=== PATIENT | male | born 1945 | race Caucasian/White ===

== ENCOUNTER → 2017-05-20 10:05 | Outpatient (CLI) | payer MEDICARE, OTHER, SELFPAY ==
--- NOTE | 2017-05-18 08:10 | LES_PTH ---
PATIENT: EKTA CONWAY LOC: [facility] U#:[id number] AGE/SX: 79/M ROOM: RE05/20/[address]: Dr. Ferny Chu MD : 1945 BED: DIS: SPEC #: [id number] RECD: 05/20/17 10:04 STATUS: KARMEN SHE #: [id number] JENNY: 05/18/17 08:[address]: Ferny Chu DEPT: SURGICAL PATHOLOGY RECD BY: Celso Gonzáles ENTERED: 05/20/17 13:08 SP TYPE: Lesion OTHR DR: Dr. Jeremiah Mendoza MD Tissues: Skin of hand and finger, NOS Procedures: Surgery Specimen Level IV HEADER OPERATION: Excision right hand lesion PRE-OP DIAGNOSIS: Right hand lesion TISSUE SUBMITTED: Right hand tissue MICROSCOPIC DIAGNOSIS Skin lesion of right hand, biopsy: Consistent with verrucoid keratosis, inflamed. Solar elastosis and actinic change. AM:kiya 05/21/17 COMMENT Case has been reviewed in consultation with Dr. Kwan who concurs with the above diagnosis. IDC:JOSHUA MICROSCOPIC DESCRIPTION Slides are reviewed. GROSS DESCRIPTION Received in fixative is one container labeled with the patient's name and designated right hand. The specimen consists of a piece of ronquilol-white skin ellipse measuring 1.5 x 0.8 cm and 0.2 cm in thickness. There is a raised brown lesion on the surface measuring 0.7 x 0.6 cm. The specimen is inked, serially sectioned and submitted entirely in one cassette. / JOSHUA:kiya 05/20/17 TC:5 CPT: 95989
== END ==
PROVIDERS: Family Provider Family Medicine; PCP Family Medicine; Visit Provider Surgery
DX: L98.8 Other specified disorders of the skin and subcutaneous tissue (principal)
CPT/HCPCS: 88305

== ENCOUNTER 2018-06-27 11:29 | Inpatient (IN) | payer MEDICARE, OTHER, SELFPAY ==
[2018-06-27] VITALS (20 sets, daily range): BP systolic 120–179; BP diastolic 55–104; PULSE 55–88; RESP 17–24; TEMP 36.3–36.8; O2SAT 92–96; BMI 25.5; BMI 25.6; BMI 26.8
--- NOTE | 2018-06-27 11:45 | EKG12_ITS ---
Test Reason : SOB Blood Pressure : / mmHG Vent. Rate : 058 BPM Atrial Rate : 058 BPM P-R Int : 164 ms QRS Dur : 098 ms QT Int : 510 ms P-R-T Axes : 012 045 107 degrees QTc Int : 500 ms Sinus bradycardia Nonspecific T Wave Abnormality Abnormal ECG Confirmed by SCOTTY DIAZ, DIMITRIS ([id number]), legal editor FUENTES MUELLER ([id number]) on 06/30/2018 11:42:24 AM Referred By: Confirmed By:DIMITRIS FAJARDO MD
[2018-06-27] MEDS: Albuterol 2.5 MG/3 ML VIAL.NEB. INHALATION ×3 (12:00→12:19)
[2018-06-27] MEDS: Ipratropium/Albuterol Sulfate 3 ML AMPUL.NEB INHALATION ×2 (12:00→18:57)
[2018-06-27 12:18] LABS: Absolute Lymphocyte Count 0.88 X10^3/ul (0.83-4.51); Absolute Neutrophil Count 5.4 X10^3/uL (2.0-7.7); Basophil# 0.03 X10^3/uL; Basophil% 0.4 % (0-1); Eosinophil# 0.14 X10^3/uL; Hematocrit 30.3 % (40-54); Hemoglobin 9.6 g/dl (13.0-16.5); Lymphocyte # 0.88 X10^3/ul (4.0); Lymphocyte % 12.6 % (19-41); Mean Corp Hgb Conc 31.7 g/gl (32-36); Mean Corpuscular Hgb 27.7 pg (27.0-32.0); Mean Corpuscular Volume 87.3 fL (80-94); Mean Platelet Vol. 9.9 fl (6.2-12.0); Monocyte# 0.49 X10^3/uL; Neutrophil % 77.7 % (47-70); Platelet Count 261 K/mm3 (150-450); RBC Distribution Width CV 15.5 % (11.6-14.6); RBC Distribution Width SD 49.3 fl (35.1-43.9); Red Blood Count 3.47 M/mm3 (4.6-6.2)
[2018-06-27 12:25] LABS: POSITIVE COUNT NO; POSITIVE DIFFERENTIAL NO; POSITIVE MORPHOLOGY NO
[2018-06-27 12:26] LABS: Anion Gap 10 (5-15); BUN 40 mg/dL (7-18); BUN/Creat Ratio 20.6 RATIO (10-20); Calcium,Total 8.8 mg/dL (8.5-10.1); Chloride 108 mmol/L (98-107); Creatinine, Serum 1.94 mg/dL (0.70-1.30); EST Glomerular Filtration Rate 36 mL/min (>60); Est Glom Filt Rate - Afr Amer 44 mL/min (>60); Estimated Creatinine Clearance 33.91 ml/min; Glucose 137 mg/dL (74-106); Potassium 3.9 mmol/L (3.5-5.1); Sodium Level 141 mmol/L (136-145)
--- NOTE | 2018-06-27 12:28 | RAD_ITS ---
STUDY: X-RAY CHEST REASON FOR EXAM: Male, 73 years old. Shortness of breath. Hypoxia. TECHNIQUE: PA and lateral views of the chest. COMPARISON: October 03, 2012. FINDINGS: Median sternotomy. CABG. Vascular stenting at the left neck. Surgical clips at the right neck. Cardiac silhouette unremarkable. Pulmonary vascularity slightly increased. Aorta calcified. Coarse lung markings. Hyperexpansion. Costophrenic angle blunting. Upper abdomen unremarkable. Osseous structures are demineralized. No pneumothorax. Degenerative changes of the shoulders and spine. RAD/Chest PA and Lateral IMPRESSION: No new focal patchy airspace opacities or significant pleural effusions COPD/emphysema with costophrenic angle blunting Cardiac surgery Electronically Signed: Lauri Chen DO at 13:15 EDT Tel , Service support ,
[2018-06-27 12:36] LABS: Base Excess -4 mmol/L (-2 to +2); O2 Delivery Device Nasal Can; PO2 38 mmHG (75-100); SITE L Radial; SO2 72 % (95-99); Time Given 1221; Total Carbon Dioxide 22 mmol/L; pH 7.39 (7.35-7.45)
--- NOTE | 2018-06-27 12:37 | BH.SGPN.T2 ---
Behaviors/Verbalizations/Mental Status: [] Client Response/Progress/Benefit: [] Narrative Note: []Critical PaO2 value due to venous gas drawn Dr. Sanabria notified
--- NOTE | 2018-06-27 13:13 | ED.VIS.GEN ---
History of Present Illness Chief Complaint: Shortness of Breath Informant: Patient Onset: Days - Patient reports increased shortness of breath over the past several days. Context: - - Does not recall Timing: Continuous Quality: Difficulty breathing at rest and increased shortness of breath with activit Location: Respiratory Current Severity: Mild Maximum Severity: Severe Worsened by: Exertion Relieved by: Nothing Associated Symptoms: No URI symptoms, cardiac symptoms i.e. orthopnea or PND Narrative: Patient is an elderly male who is not a good informant. He presents with increased shortness of breath over the past several days. He reports increased dyspnea with exertion. He denies URI symptoms. He denies fever or chills. He was unaware that his lower extremities were edematous. He denies orthopnea or PND. He denies chest pain of any type. He denies GI symptoms. He denies coronary disease however he is on nitroglycerin. 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 Prior similar symptoms: No Recent Illness/Hospitalization: No - Past Medical History (1) History of hypertension Status: Acute (2) History of hypercholesterolemia Status: Acute (3) PAD (peripheral artery disease) Status: Acute Past Medical History - Allergies and Home Meds Allergies/Adverse Reactions: Allergies No Known Allergies Allergy (Verified 05/27/17 13:11) Primary Care Physician: Jeremiah Mendoza MD [Primary Care Provider] - Prior records reviewed: Yes Surgical History: noncontributory Lives: Alone Smoking Status: Former smoker Alcohol: None Drugs: None Review of Systems General: Denies: Chills, Fever, Malaise, Sweats, Weight loss Eyes: Denies: Visual changes - bilaterally, Blurred Vision - bilaterally, Diplopia ENT: Denies: Bilateral ear pain, Rhinorrhea, Sore throat Cardiovascular: Denies: Chest pain, Palpitations, Heart racing Respiratory: Reports: Dyspnea, Cough, Dyspnea on exertion. Denies: Sputum, Orthopnea, Paroxysmal nocturnal dyspnea Gastrointestinal: Denies: Abdominal pain, Nausea, Vomiting, Diarrhea, Melena, Hematochezia Genitourinary: Denies: Dysuria, Hematuria, Frequency Musculoskeletal: Denies: Myalgias, Arthralgias, Back pain, Swelling, Extremity Pain Skin: Denies: Rash, Wounds Neurological: Denies: Headache Psych: Denies: Depression Hematologic: Denies: Easy bruising, Easy bleeding Allergy: Denies: Uticaria, Swelling of the mouth Physical Exam Vital Signs/Narrative: Vital Signs Temp Pulse Resp BP Pulse Ox 06/27/18 12:33 97.3 F L 55 L 24 H 128/104 H 94 06/27/18 12:30 55 L 24 H 128/104 H 94 06/27/18 12:01 57 L 20 H 06/27/18 11:30 98.2 F 58 L 17 179/63 H 94 Inital Vital Signs reviewed: Yes General: Well nourished, Well developed, Acute Distress Head: Normocephalic, Atraumatic Eyes: Perrl, EOMI. Negative for: Pale conjunctiva, Scleral icterus ENT: Moist mucous membranes, No rhinorrhea, TM's clear Neck: Supple, Nontender, No lymphadenopathy, No JVD Cardiovascular: Regular rate, Regular rhythm, No murmurs, Normal S1, Normal S2 Respiratory: Rales, Wheezing, Diminished, Decreased Air Movement Abdomen: Soft, Nontender, Nondistended, Normal bowel sounds, No masses Back: Nontender, Normal Inspection Extremities: Nontender, Edema - 1+ pitting Skin: Normal color, No rash, Cyanosis - Per nursing staff. Negative for: Jaundice Neurological: Alert, Oriented x3, Cranial nerves II-XII grossly intact, Normal Strength, Normal Sensation, Normal DTR Psychological: Normal affect, Normal Mood Diagnostic/Tx/Re-eval Chest X-Ray - ED: 2 View, Read by ED Physician, Normal, Heart, Mediastinum, Bony Structures, - - Interstitial chronic changes noted. Unable to compare to prior films. There is evidence of an effusion bilaterally. 06/27/18 12:28 Chest PA and Lateral [RAD] Stat Laboratory Results 06/27/18 06/27/18 06/27/18 11:35 11:35 12:22 WBC 7.0 RBC 3.47 L Hgb 9.6 L Hct 30.3 L MCV 87.3 MCH 27.7 MCHC 31.7 L RDW 15.5 H RDW Differential 49.3 H Plt Count 261 MPV 9.9 Immature Gran % (Auto) 0.300 Neut % (Auto) 77.7 H Lymph % (Auto) 12.6 L [place] % (Auto) 7.0 Eos % (Auto) 2.0 Baso % (Auto) 0.4 Absolute Neuts (auto) 5.4 Absolute Lymphs (auto) 0.88 Total Counted Not Reportable Specimen Type ART Sample Site L Radial pH 7.39 Bicarbonate Actual 21.0 L POC Total CO2 22 Base Excess -4 L O2 Saturation 72 L ABG pCO2 35.0 ABG pO2 38 L* Jamel Test NA O2 Delivery Device Nasal Can Liter Flow 4.0 Blood Gas Notified Whom ED Blood Gas Notified Time 1221 Sodium 141 Potassium 3.9 Chloride 108 H Carbon Dioxide 23.0 Anion Gap 10 BUN 40 H Creatinine 1.94 H Estim Creat Clear Calc 33.91 Est GFR (MDRD) Af Amer 44 L Est GFR (MDRD) Non-Af 36 L BUN/Creatinine Ratio 20.6 H Glucose 137 H Calcium 8.8 Troponin I 0.024 - Rhythm Strip Rhythm Strip: Sinus Rhythm Rate: 58 Ectopy: None - EKG Initial EKG Interpretation: Sinus Bradycardia - Ventricular rate 58. NH interval normal. Respiration is slightly prolonged at 98 ms. QT interval is normal. [place] is normal. There is nonspecific lateral changes noted. - Medical Decision Making Differential diagnosis is respiratory etiology versus COPD versus pneumonia versus coronary etiology i.e. CHF. Work-up included EKG, chest x-ray and blood work including BNP. BNP was greater than 2000. Chest x-ray was read as no new process. In my opinion there is bilateral small pleural effusions and evidence of heart failure. Patient was treated with Lasix and nitroglycerin he will need admission. An ABG was obtained. The ABG is a venous gas. There is no significant acid-base disturbance. ED Disposition - Plan for ED Patient: Disposition: Acute Care Hospital [facility] Diagnosis: Respiratory failure with hypoxia, New onset of congestive heart failure Referrals: Jermeiah Mendoza MD [Primary Care Provider] -
[2018-06-27 14:08] LABS: BNP,B-Type NATRIURETIC PEPTIDE 2003.5 pg/mL (0-100)
[2018-06-27] MEDS: Furosemide 40 MG/4 ML Vial IV ×2 (15:14→21:00)
[2018-06-27] MEDS: Nitroglycerin Oint 1 INCH PACKET TRANSDERM. (15:14)
--- NOTE | 2018-06-27 15:22 | HP.PCM_ITS ---
Problem List (1) Acute exacerbation of CHF (congestive heart failure) Status: Acute Qualifiers: Heart failure type: unspecified Qualified Code(s): I50.9 - Heart failure, unspecified (2) COPD exacerbation Status: Acute (3) CAD (coronary artery disease) Status: Chronic Qualifiers: Coronary Disease-Associated Artery/Lesion type: unspecified vessel or lesion type [place] vs. transplanted heart: unspecified whether [place] or transplanted heart Associated angina: angina presence unspecified Qualified Code(s): I25.10 - Atherosclerotic heart disease of [place] coronary artery without angina pectoris (4) HTN (hypertension) Status: Chronic Qualifiers: Hypertension type: essential hypertension Qualified Code(s): I10 - Essential (primary) hypertension (5) HLD (hyperlipidemia) Status: Chronic Qualifiers: Hyperlipidemia type: pure hypercholesterolemia Qualified Code(s): E78.00 - Pure hypercholesterolemia, unspecified; E78.0 - Pure hypercholesterolemia (6) Gout Status: Chronic Qualifiers: Gout site: unspecified site (7) GERD (gastroesophageal reflux disease) Status: Chronic Qualifiers: Esophagitis presence: esophagitis presence not specified Qualified Code(s): K21.9 - Gastro-esophageal reflux disease without esophagitis (8) PAD (peripheral artery disease) Status: Chronic (9) Carotid stenosis, bilateral Status: Chronic History of Present Illness Date of Admission: 06/27/18 Chief Complaint: Dyspnea. The patient is a 73 y/o M w/ PMHx: CAD s/p CABG, PAD, Chronic anemia (baseline prior appeared 11 but not recent), CKD stage III (prior baseline 1.8 but not recent), Carotid disease s/p R CEA, HTN, HLD, PVD, Gout, GERD, Hx TIA, Former Tobacco use who presents to the [facility] ED on 06/27/18 with history of ongoing progressively worsening dyspnea over the last 2 weeks, worsened over the last several days with prior to this upper respiratory infection symptoms which have since resolved with concurrent wheezing although does also note that he has had bilateral lower extremity edema but denies any orthopnea. Work-up in the ED included T 98.2, HR 58, BP 179/63, RR 24, 94% on RA however noted 70s oxygenation on RA, CBC with WBC 7, heme globin 9.6, platelet 261 without market shift, VBG with pH 7.39, O2 72%, PCO2 35, PO2 38 on 4 L nasal cannula, BMP with chloride 108, BUN/creatinine 40/1.94, glucose 137, troponin 0 0.024, BNP 2003.5, EKG w/ sinus bradycardia with non-specific lateral changes, CXR w/ chronic COPD/emphysematous changes with costophrenic angle blunting. In the ED patient administered Nitro-Bid, Lasix 40 mg IV x1, DuoNeb as well as albuterol therapies. In the ED upon evaluation patient does have increased respiratory rate, audible wheezing occasionally. Past Medical History Past Medical History (Chronic Problems): Chronic Problems (Last Reviewed 05/27/17 @ 13:11 by Susanna Sneed) CAD (coronary artery disease) (Chronic) HTN (hypertension) (Chronic) HLD (hyperlipidemia) (Chronic) Gout (Chronic) GERD (gastroesophageal reflux disease) (Chronic) PAD (peripheral artery disease) (Chronic) Carotid stenosis, bilateral (Chronic) Medical History: Medical History (Last Reviewed 05/27/17 @ 13:11 by Susanna Sneed) Skin lesion (Acute) L98.9 PAD (peripheral artery disease) (Chronic) I73.9 Carotid stenosis, bilateral (Chronic) I65.23 Arthritis M19.90 Gout M10.9 Hyperlipidemia E78.5 PVD (peripheral vascular disease) I73.9 h/o of hernia HTN (hypertension) I10 Allergies No Known Allergies Allergy (Verified 05/27/17 13:11) Home Medications: Ambulatory Orders Medication Instructions Recorded Amlodipine [Norvasc] 10 mg PO DAILY 05/15/16 Aspirin [Aspirin EC] 81 mg PO DAILY 05/15/16 Atorvastatin Calcium [Lipitor] 80 mg PO QHS 05/15/16 Doxazosin Mesylate [Cardura] 8 mg PO QHS 05/15/16 Ezetimibe [Zetia] 10 mg PO QHS 05/15/16 Multivitamin [Daily Multiple 1 ea PO DAILY 05/15/16 Vitamin] Nitroglycerin [Nitrostat] 0.4 mg SL PRN PRN 05/15/16 Carvedilol 25 mg PO BID 06/27/18 Furosemide [Lasix] 20 mg PO DAILY 06/27/18 Omeprazole 20 mg PO DAILY 06/27/18 hydrALAZINE [Apresoline] 50 mg PO TID 06/27/18 Surgical History: Surgical History (Last Reviewed 05/27/17 @ 13:11 by Susanna Sneed) H/O colonoscopy Z98.890 2009-repeat 2019 H/O heart bypass surgery Z95.1 History of CEA (carotid endarterectomy) Z98.890 right History of knee replacement Z96.659 Surgical History: - - PCI x9, CABG x4, left total knee replacement, right CEA, bilateral inguinal hernia repair. Psychiatric History: No pertinent psych hx Lives: Alone Smoking Status: Former smoker - Patient quit cigarette tobacco usage approximately 20 to 30 years prior with prior to this 1 pack/day. Tobacco Use: Non-smoker Alcohol: Occasional - Patient notes 1-2 beers maybe every other day. Drugs: None - *Family History Maternal History Items: - - Patient notes no marked maternal family history including heart disease, diabetes, cancer. Paternal History Items: Heart Disease, Hypertension Review of Systems Constitutional: Reports: Anorexia, Malaise, Weakness, Fatigue. Denies: Chills, Fever, Weight Change HEENT: Reports: Nasal Congestion, Sinus Congestion, Sinus Drainage, Sore Throat. Denies: Head Aches Cardiovascular: Reports: Edema. Denies: Chest Pain, Heaviness, Light Headedness, Orthopnea, Palpitations, Syncope Respiratory: Reports: Cough, Shortness of Breath, Shortness of breath upon exertion, Wheezing. Denies: Shortness of breath at rest, Sputum production Gastrointestinal: Denies: Abdominal Pain, Nausea, Vomiting Genitourinary: Denies: Dysuria Musculoskeletal: Reports: Joint Pain. Denies: Joint Tenderness Skin: Denies: Rash, Wounds Neurological: Denies: Numbness, Tingling, Focal weakness Psychiatric: Denies: Anxiety, Depression, Homicidal Ideations, Suicidal Ideations Hematologic/ Lymphatic: Reports: Easy Bruising. Denies: Easy Bleeding VTE Information - Inpt Only VTE Present on Admission: No VTE Mechan Device Prophylaxis: SCD's VTE Pharm Prophylaxis ordered?: Yes Patient Problems: Active and Suspected Problems (Last Reviewed 05/27/17 @ 13:11 by Susanna Sneed) History of hypertension (Acute) History of hypercholesterolemia (Acute) Respiratory failure with hypoxia (Acute) New onset of congestive heart failure (Acute) Acute exacerbation of CHF (congestive heart failure) (Acute) COPD exacerbation (Acute) Subjective: Seated upright in the ED bed, fatigued appearance, increased respiratory rate otherwise no acute distress. Objective: Physical Examination: General: awake, alert, oriented x 3 and cooperative, seated upright in the ED bed, fatigued appearance, increased respiratory rate but no obvious distress. Skin: normal color, turgor, no icterus, cyanosis. HEENT: AT/NC, EOMI, PERRLA, moderately dry MM, no carotid bruits, + JVD noted. Lungs: Severely diffusely diminished, greater bases, mild rales at bases, and expiratory occasional wheezing throughout lung gama, mildly increased respiratory rate. Heart: Regular rate and rhythm; no gallop, rub audible. Abdomen: soft, NTTP, ND, normal BS, no HSM. Extremities: no cyanosis, clubbing, BL LE pedal to [place] pitting 1+ edema. Neurological: patient awake, alert, oriented x 3; cognitive function intact; pupils equally reactive to light and accomodation; cranial nerves II-XII grossly normal, moving all 4 extremities, no focal deficits, strength severely global decrease secondary to acute presentation. Psychiatric: affect appears fatigued, no acute evidence of depressive or anxiety feelings. - Physical Exam Vital Signs Temp Pulse Resp BP Pulse Ox 97.6 F L 61 20 H 128/99 H 93 06/27/18 14:00 06/27/18 14:00 06/27/18 14:00 06/27/18 14:00 06/27/18 14:00 Oxygen Flow Rate (L/min) 4 Oxygen Delivery Method Nasal Cannula Weight: 173 lb 4.533 oz Body Mass Index (BMI) 25.5 Laboratory Tests Past 24 Hrs 06/27/18 06/27/18 06/27/18 11:35 11:35 11:35 WBC 7.0 RBC 3.47 L Hgb 9.6 L Hct 30.3 L MCV 87.3 MCH 27.7 MCHC 31.7 L RDW 15.5 H RDW Differential 49.3 H Plt Count 261 MPV 9.9 Immature Gran % (Auto) 0.300 Neut % (Auto) 77.7 H Lymph % (Auto) 12.6 L [place] % (Auto) 7.0 Eos % (Auto) 2.0 Baso % (Auto) 0.4 Absolute Neuts (auto) 5.4 Absolute Lymphs (auto) 0.88 Total Counted Not Reportable Specimen Type Sample Site pH Bicarbonate Actual POC Total CO2 Base Excess O2 Saturation ABG pCO2 ABG pO2 Jamel Test O2 Delivery Device Liter Flow Blood Gas Notified Whom Blood Gas Notified Time Sodium 141 Potassium 3.9 Chloride 108 H Carbon Dioxide 23.0 Anion Gap 10 BUN 40 H Creatinine 1.94 H Estim Creat Clear Calc 33.91 Est GFR (MDRD) Af Amer 44 L Est GFR (MDRD) Non-Af 36 L BUN/Creatinine Ratio 20.6 H Glucose 137 H Calcium 8.8 Troponin I 0.024 B-Natriuretic Peptide 2003.5 H 06/27/18 12:22 WBC RBC Hgb Hct MCV MCH MCHC RDW RDW Differential Plt Count MPV Immature Gran % (Auto) Neut % (Auto) Lymph % (Auto) [place] % (Auto) Eos % (Auto) Baso % (Auto) Absolute Neuts (auto) Absolute Lymphs (auto) Total Counted Specimen Type ART Sample Site L Radial pH 7.39 Bicarbonate Actual 21.0 L POC Total CO2 22 Base Excess -4 L O2 Saturation 72 L ABG pCO2 35.0 ABG pO2 38 L* Jamel Test NA O2 Delivery Device Nasal Can Liter Flow 4.0 Blood Gas Notified Whom ED MD Blood Gas Notified Time 1221 Sodium Potassium Chloride Carbon Dioxide Anion Gap BUN Creatinine Estim Creat Clear Calc Est GFR (MDRD) Af Amer Est GFR (MDRD) Non-Af BUN/Creatinine Ratio Glucose Calcium Troponin I B-Natriuretic Peptide Assessment/Plan All Active Problems (Last Reviewed 05/27/17 @ 13:11 by Susanna Sneed) History of hypertension (Acute) History of hypercholesterolemia (Acute) Respiratory failure with hypoxia (Acute) New onset of congestive heart failure (Acute) Acute exacerbation of CHF (congestive heart failure) (Acute) COPD exacerbation (Acute) Skin lesion (Acute) The patient is a 73 y/o M w/ PMHx: CAD s/p CABG, PAD, Chronic anemia (baseline prior appeared 11 but not recent), CKD stage III (prior baseline 1.8 but not recent), Carotid disease s/p R CEA, HTN, HLD, PVD, Gout, GERD, Hx TIA, Former Tobacco use who presents to the [facility] ED on 06/27/18 with history of ongoing progressively worsening dyspnea over the last 2 weeks, worsened over the last several days with prior to this upper respiratory infection symptoms which have since resolved with concurrent wheezing although does also note that he has had bilateral lower extremity edema but denies any orthopnea. (1) ? New Onset Acute Decompensated CHF, Unclear type, Suspected concurrently #2 (Less suspicious for failure): Work-up in the ED included T 98.2, HR 58, BP 179/63, RR 24, 94% on RA however noted 70s oxygenation on RA, CBC with WBC 7, heme globin 9.6, platelet 261 without market shift, VBG with pH 7.39, O2 72%, PCO2 35, PO2 38 on 4 L nasal cannula, BMP with chloride 108, BUN/creatinine 40/1.94, glucose 137, troponin 0 0.024, BNP 2003.5, EKG w/ sinus bradycardia with non-specific lateral changes, CXR w/ chronic COPD/emphysematous changes with costophrenic angle blunting. Patient administered IV lasix in the ED. Will admit to PCU, maintain on cardiac telemetry obtain cardiac enzyme series, obtain serial EKGs, continue IV lasix diuresis, monitor I/Os, maintain on intake restriction, continue medical therapy w/ asa, statin, BB. Will obtain TSH and magnesium level. Will request ECHO. PRN morphine to decrease afterload, continue oxygen supplementation, if necessary will position w/ upright position with legs off bed to decrease preload. (2) ? Acute on Underlying Chronic COPD: CXR w/ chronic changes w/ ? congestion/blunting of angles, maintain on oxygen with wean as tolerated to room air, continue ATC duonebs, PRN albuterol, IV methylprednisolone, HOB, IS parameters, requested respiratory viral panel and sputum cultures. No prior history but tobacco use prior. Would need PFTs outpatient once resolved. (3) CAD: s/p CABG. Maintain on home asa, statin, BB regimen. (4) PAD, Carotid Disease: Maintain on home asa, statin, BB regimen. (5) Hypertension: Continue home regimen including Norvasc, Coreg, hydralazine, IV Lasix as noted, PRN hydralazine. (6) Hyperlipidemia: Continue home statin regimen. AM FLP. (7) Hyperglycemia: Admission glucose 137, hemoglobin A1c pending. (8) Chronic Kidney Disease Stage III: Admission BUN/Cr 40/1.94, baseline renal function 1.8, stable from this prior, but not a recent lab, unclear recent baseline, repeat BMP in AM. (9) Chronic Anemia: Normocytic. Admission Hgb 9.6, prior baseline noted 10-11, no recent baseline lab noted, trend. (10) Hx TIA: Maintain on home asa, statin, BP regimen, elevated BS w/ pending HgBA1c as noted. (11) GERD: PPI. (12) DVT Prophylaxis: SCDs, heparin. Code Visit Inpatient E&M: 38833 Init Hosp L3
[2018-06-27 15:54] LABS: Blood Gas Specimen Type VEN
[2018-06-27] MEDS: MethylPREDNISolone 125 MG/2 ML Vial IV (15:57)
--- NOTE | 2018-06-27 16:13 | ECHOD_ITS ---
Reason For Study: CHF Procedure This was a 2D Doppler, Color Flow transthoracic echocardiogram. The study was technically difficult. Exam performed portable in patient room. Left Ventricle Normal LV size. Mild concentric left ventricular hypertrophy. Left ventricular systolic function is normal. The estimated ejection fraction is 60 %. Post operative septal motion. No regional wall motion abnormalities noted. Right Ventricle Normal RV size. Normal systolic function. Atria The left atrium is mildly enlarged. Normal right atrium. No doppler evidence for ASD. Mitral Valve There is no mitral annular calcification. Mild diffuse mitral valve thickening. Mitral valve doming/Hockey Sticking. Mild mitral valve stenosis. Mild-Moderate (1-2+) mitral valve insufficiency. Tricuspid Valve Normal tricuspid valve. Trivial tricuspid valve insufficiency. Right ventricular systolic pressure estimated to be 39 mmHg. Aortic Valve Trisinus/trileaflet aortic valve. Mild diffuse aortic valve calcification. Mild aortic stenosis. Trivial aortic valve insufficiency. Pulmonic Valve The pulmonic valve is not well visualized. Trivial pulmonic valve insufficiency. Great Vessels Normal sized aortic root. Pericardium/Pleural No pericardial effusion. MMode/2D Measurements & Calculations LVIDd: 5.2 cm IVSd: 1.6 cm LVOT diam: 2.0 cm LVIDs: 3.8 cm LVPWd: 1.3 cm LVOT area: 3.3 cm2 RVDd: 4.3 cm FS: 27.2 % Ao root diam: 3.0 cm LAV(MOD-bp): 87.2 ml LVAd ap4: 33.0 cm2 LAV(MOD-bp) Indexed: 44.9 ml/m2 EDV(MOD-sp4): 102.4 ml LAV(MOD-sp2): 90.4 ml EDV(sp4-el): 106.5 ml LAV(MOD-sp4): 78.6 ml LVAs ap4: 19.3 cm2 ESV(MOD-sp4): 47.5 ml ESV(sp4-el): 45.2 ml EF(MOD-sp4): 53.6 % EF(sp4-el): 57.6 % SV(MOD-sp4): 54.9 ml SV(sp4-el): 61.3 ml LA A4 area: 26.0 cm2 LA dimension(2D): 5.1 cm RA A4 area: 18.8 cm2 Time Measurements MV dec time: 0.15 sec Doppler Measurements & Calculations MV E max fei: 156.0 cm/sec Lat Peak E' Fei: 9.3 cm/sec Med Peak E' Fei: 3.7 cm/sec MV A max fei: 103.8 cm/sec E/E' lat: 16.8 E/E' med: 42.4 MV E/A: 1.5 MV V2 max: 148.5 cm/sec MV P1/2t max fei: 136.4 cm/sec Ao V2 max: 211.5 cm/sec MV max P.8 mmHg MV P1/2t: 90.6 msec Ao max P.9 mmHg MV V2 mean: 89.2 cm/sec Ao V2 mean: 143.8 cm/sec MV mean P.6 mmHg MV dec slope: 441.2 cm/sec2 Ao mean P.9 mmHg MV V2 VTI: 41.8 cm MVA(P1/2t): 2.4 cm2 Ao V2 VTI: 51.7 cm MVA(VTI): 2.2 cm2 JULISA(I,D): 1.8 cm2 JULISA(V,D): 1.9 cm2 LV V1 max: 122.4 cm/sec SV(LVOT): 92.7 ml PA V2 max: 129.7 cm/sec LV V1 max P.0 mmHg LV V1 mean P.6 mmHg LV V1 mean: 77.3 cm/sec LV V1 VTI: 28.2 cm TR max fei: 301.4 cm/sec TR max P.3 mmHg Interpretation Summary The study was technically difficult. Left ventricular systolic function is normal. The estimated ejection fraction is 60 %. Post operative septal motion. Mild concentric left ventricular hypertrophy. The left atrium is mildly enlarged. Mild diffuse mitral valve thickening. Mitral valve doming/Hockey Sticking Mild mitral valve stenosis. Mild-Moderate (1-2+) mitral valve insufficiency. Trivial tricuspid valve insufficiency. Mild aortic stenosis. Trivial aortic valve insufficiency. Trivial pulmonic valve insufficiency. Right ventricular systolic pressure estimated to be 39 mmHg. Transmitral diastolic flow velocities suggest diastolic dysfunction (pseudonormal pattern). Ordering Physician: Celia Schultz Referring Physician: Jeremiah Mendoza Performed By: Barbara Echeverria, IMAN, RVT
[2018-06-27 16:52] LABS: Magnesium 2.4 mg/dL (1.6-2.6); Thyroid Stim Hormone (TSH) 1.92 uIU/mL (0.358-3.74)
[2018-06-27] MEDS: 0.9% NaCl Peripheral Flush Adult/Peds IV ×3 (18:12→21:12)
[2018-06-27] MEDS: hydrALAZINE 20 MG/ML Vial 10 MG IV (18:12)
[2018-06-27] MEDS: Heparin Injection (Vial) 5,000 UNIT/ML VIAL 5000 UNIT SC (21:00)
[2018-06-27] MEDS: Carvedilol 25 MG Tablet PO (21:00)
[2018-06-27] MEDS: hydrALAZINE 50 MG Tablet PO (21:01)
[2018-06-27] MEDS: Atorvastatin Calcium 80 MG Tablet PO (21:01)
[2018-06-27] MEDS: Doxazosin 4 MG Tablet 8 MG PO (21:03)
[2018-06-28] VITALS (19 sets, daily range): BP systolic 158–174; BP diastolic 49–68; PULSE 66–76; RESP 14–20; TEMP 36.6–37.7; O2SAT 90–97
[2018-06-28] MEDS: hydrALAZINE 50 MG Tablet PO ×3 (05:43→22:17)
[2018-06-28] MEDS: Furosemide 40 MG/4 ML Vial IV ×2 (05:44→13:22)
[2018-06-28] MEDS: 0.9% NaCl Peripheral Flush Adult/Peds IV ×3 (05:48→22:13)
[2018-06-28] MEDS: Ipratropium/Albuterol Sulfate 3 ML AMPUL.NEB INHALATION ×4 (07:06→20:32)
[2018-06-28 08:19] LABS: Anion Gap 10 (5-15); BUN 46 mg/dL (7-18); BUN/Creat Ratio 23.4 RATIO (10-20); Calcium,Total 8.6 mg/dL (8.5-10.1); Chloride 108 mmol/L (98-107); Cholesterol 122 mg/dL (200); Creatinine, Serum 1.97 mg/dL (0.70-1.30); EST Glomerular Filtration Rate 36 mL/min (>60); Est Glom Filt Rate - Afr Amer 43 mL/min (>60); Glucose 141 mg/dL (74-106); High Density Lipoprotein 52 mg/dL; Potassium 3.7 mmol/L (3.5-5.1); Sodium Level 142 mmol/L (136-145); Triglycerides 65 mg/dL; Very Low Density Lipoprotein 13 mg/dL (5-40)
[2018-06-28] MEDS: Aspirin E.C. 81 MG Tablet PO (08:35)
[2018-06-28] MEDS: Pantoprazole Sodium 20 MG Tablet PO (08:35)
[2018-06-28] MEDS: Multivitamins,Therapeutic Tablet 1 TABLET PO (08:35)
[2018-06-28] MEDS: amLODIPine 10 MG Tablet PO (08:35)
[2018-06-28] MEDS: Carvedilol 25 MG Tablet PO ×2 (08:35→22:18)
[2018-06-28] MEDS: Heparin Injection (Vial) 5,000 UNIT/ML VIAL 5000 UNIT SC ×2 (08:36→22:17)
[2018-06-28 09:27] LABS: Hemoglobin A1c 5.5 % (4.2-6.3)
--- NOTE | 2018-06-28 13:45 | PN_ITS ---
<Brittaney Phillip - Last Filed: 06/28/18 13:46> Patient Problems: Active and Suspected Problems (Last Reviewed 05/27/17 @ 13:11 by Susanna Sneed) History of hypertension (Acute) History of hypercholesterolemia (Acute) Respiratory failure with hypoxia (Acute) New onset of congestive heart failure (Acute) Acute exacerbation of CHF (congestive heart failure) (Acute) COPD exacerbation (Acute) Subjective: Patient seen and examined. Shortness of breath improved. Denies chest pain, dizziness, palpitations. - Physical Exam General: Alert, Oriented x3, Cooperative HEENT: Atraumatic, PERRLA, EOMI, Normocephalic Neck: Supple, No JVD, Negative Carotid Bruits Lungs: Clear to auscultation, Diminished Cardiovascular: Regular rate, Regular Rhythm, Normal S1, Normal S2, No murmurs Abdomen: Bowel Sounds Present, Soft, Non Tender, Non-Distended Extremities: No clubbing, No cyanosis, No edema, Capillary Refill Less than 3 Seconds Skin: No rashes, No breakdown Musculoskeletal: No Tenderness to Palpation of Joints or Extremities Neurological: Cranial nerves II-XII grossly intact, Neuro grossly intact Psych/Mental Status: Normal Affect, Appropriate Vital Signs Temp Pulse Resp BP Pulse Ox 98.6 F 73 16 173/58 H 92 06/28/18 09:50 06/28/18 13:22 06/28/18 11:09 06/28/18 09:50 06/28/18 09:50 Oxygen Flow Rate (L/min) 4 Oxygen Delivery Method Room Air Weight: 181 lb 10.574 oz Body Mass Index (BMI) 26.8 Intake and Output for Last 24 Hours 06/26/18 06/27/18 06/28/18 23:59 23:59 23:59 Intake Total 120 / 120 120 / 120 Output Total 1700 / 1700 Balance 120 / 120 -1580 / -1580 Microbiology Past 72 Hours 06/27/18 16:54 Respiratory Panel (PCR) - Final Mucosa - Nasopharyngeal Laboratory Tests Past 24 Hrs 06/27/18 06/27/18 06/27/18 11:35 11:35 12:22 Specimen Type GIANNA Sodium Potassium Chloride Carbon Dioxide Anion Gap BUN Creatinine Estim Creat Clear Calc Est GFR (MDRD) Af Amer Est GFR (MDRD) Non-Af BUN/Creatinine Ratio Glucose Hemoglobin A1c Calcium Magnesium 2.4 Troponin I B-Natriuretic Peptide 2003.5 H Triglycerides Cholesterol LDL Cholesterol VLDL Cholesterol HDL Cholesterol TSH 1.92 06/27/18 06/27/18 06/28/18 17:25 19:56 06:49 Specimen Type Sodium Potassium Chloride Carbon Dioxide Anion Gap BUN Creatinine Estim Creat Clear Calc Est GFR (MDRD) Af Amer Est GFR (MDRD) Non-Af BUN/Creatinine Ratio Glucose Hemoglobin A1c 5.5 Calcium Magnesium Troponin I 0.023 0.023 B-Natriuretic Peptide Triglycerides Cholesterol LDL Cholesterol VLDL Cholesterol HDL Cholesterol TSH 06/28/18 06:49 Specimen Type Sodium 142 Potassium 3.7 Chloride 108 H Carbon Dioxide 24.0 Anion Gap 10 BUN 46 H Creatinine 1.97 H Estim Creat Clear Calc 33.40 Est GFR (MDRD) Af Amer 43 L Est GFR (MDRD) Non-Af 36 L BUN/Creatinine Ratio 23.4 H Glucose 141 H Hemoglobin A1c Calcium 8.6 Magnesium Troponin I B-Natriuretic Peptide Triglycerides 65 Cholesterol 122 LDL Cholesterol 57 VLDL Cholesterol 13 HDL Cholesterol 52 TSH Medical Necessity - Tobacco Use Smoking Status: Former smoker Tobacco Use: Non-smoker Assessment/Plan All Active Problems (Last Reviewed 05/27/17 @ 13:11 by Susanna Sneed) History of hypertension (Acute) History of hypercholesterolemia (Acute) Respiratory failure with hypoxia (Acute) New onset of congestive heart failure (Acute) Acute exacerbation of CHF (congestive heart failure) (Acute) COPD exacerbation (Acute) Skin lesion (Acute) 1. Acute hypoxic respiratory insufficiency secondary to acute diastolic CHF and acute COPD exacerbation-continue supplemental oxygen to maintain O2 sat above 90%. Walking pulse ox prior to discharge. 2. Acute diastolic CHF-BNP on admission 1999. Chest x-ray with COPD/emphysema w ith costophrenic angle blunting. Pulmonary vascularity slightly increased. Echocardiogram shows an EF of 60%, mild mitral valve stenosis, mild to moderate mitral valve insufficiency, mild aortic stenosis, RVSP estimated to be 39 mmHg, diastolic dysfunction. Reduce IV Lasix to 40 mg twice daily. Transition to oral Lasix tomorrow. Troponin negative. Strict I&O. Daily weight. ARNULFO ALDRIDGE. 3. Presumed acute on chronic COPD exacerbation-chest x-ray with COPD. No former PFTs. Patient does have prior tobacco use. IV Solu-Medrol. Albuterol and DuoNeb aerosols. Respiratory panel negative. Transition to prednisone tomorrow with outpatient follow-up with pulmonary medicine for PFTs and evaluation for elevated pulmonary pressure. 4. CAD status post CABG-continue aspirin, statin, beta-greg regimen. 5. PAD/carotid disease-continue aspirin, statin. 6. Hypertension-stable, continue Norvasc, Coreg. 7. Hyperlipidemia-continue statin. 8. Chronic kidney disease stage III-appears close to baseline. Trend BMP. 9. Chronic normocytic anemia-stable, trend CBC. 10. History of TIA-continue aspirin, statin. 11. GERD-continue PPI. DVT prophylaxis-heparin subcu This patient was seen by DARIN Og under the supervision of Dr. Batres. <Simón Batres - Last Filed: 06/28/18 14:04> - Physical Exam Vital Signs Temp Pulse Resp BP Pulse Ox 98.6 F 73 16 173/58 H 92 06/28/18 09:50 06/28/18 13:22 06/28/18 11:09 06/28/18 09:50 06/28/18 09:50 Oxygen Flow Rate (L/min) 4 Oxygen Delivery Method Room Air Weight: 82.4 kg Body Mass Index (BMI) 26.8 Intake and Output for Last 24 Hours 06/26/18 06/27/18 06/28/18 23:59 23:59 23:59 Intake Total 120 / 120 120 / 120 Output Total 1700 / 1700 Balance 120 / 120 -1580 / -1580 Microbiology Past 72 Hours 06/27/18 16:54 Respiratory Panel (PCR) - Final Mucosa - Nasopharyngeal Laboratory Tests Past 24 Hrs 06/27/18 06/27/18 06/27/18 11:35 11:35 12:22 Specimen Type GIANNA Sodium Potassium Chloride Carbon Dioxide Anion Gap BUN Creatinine Estim Creat Clear Calc Est GFR (MDRD) Af Amer Est GFR (MDRD) Non-Af BUN/Creatinine Ratio Glucose Hemoglobin A1c Calcium Magnesium 2.4 Troponin I B-Natriuretic Peptide 2003.5 H Triglycerides Cholesterol LDL Cholesterol VLDL Cholesterol HDL Cholesterol TSH 1.92 06/27/18 06/27/18 06/28/18 17:25 19:56 06:49 Specimen Type Sodium Potassium Chloride Carbon Dioxide Anion Gap BUN Creatinine Estim Creat Clear Calc Est GFR (MDRD) Af Amer Est GFR (MDRD) Non-Af BUN/Creatinine Ratio Glucose Hemoglobin A1c 5.5 Calcium Magnesium Troponin I 0.023 0.023 B-Natriuretic Peptide Triglycerides Cholesterol LDL Cholesterol VLDL Cholesterol HDL Cholesterol TSH 06/28/18 06:49 Specimen Type Sodium 142 Potassium 3.7 Chloride 108 H Carbon Dioxide 24.0 Anion Gap 10 BUN 46 H Creatinine 1.97 H Estim Creat Clear Calc 33.40 Est GFR (MDRD) Af Amer 43 L Est GFR (MDRD) Non-Af 36 L BUN/Creatinine Ratio 23.4 H Glucose 141 H Hemoglobin A1c Calcium 8.6 Magnesium Troponin I B-Natriuretic Peptide Triglycerides 65 Cholesterol 122 LDL Cholesterol 57 VLDL Cholesterol 13 HDL Cholesterol 52 TSH Assessment/Plan This patient was seen in conjunction with DARIN Og . I have independently interviewed and examined the patient and reviewed pertinent historical, laboratory, and other data. Please refer to DARIN Og note for details of this patient's presentation, findings, and recommendations. I have reviewed DARIN Og note and concur with documented findings. In brief, patient is a 89-year-old male who presented with progressive shortness of breath with associated bipedal edema Physical Examination: GENERAL: cooperative HEENT: Atraumatic; EYES; Anicteric, NECK; supple, normal thyroid, CARDIOVASCULAR: Regular S1 S2, GI: soft, non-tender, normoactive bowel sounds, : No Renal angle tenderness; NEURO: Awake; no lateralizing signs. SKIN: No Rash PSYCH; Normal affect Assessment: 1. Acute diastolic congestive heart failure 2. COPD exacerbation 3. CAD with previous CABG 4. Essential hypertension 5. Dyslipidemia 6. Peripheral arterial disease 7. Chronic kidney disease stage III 8. History of TIAs 9. Anemia secondary to anemia of chronic disorder 10. GERD Recommendations: 1. I have discussed the results of my overview and impressions with the patient 2. Options for management were reviewed Code Visit Inpatient E&M: 68837 Subs Hosp L3
[2018-06-28 14:57] LABS: Absolute Lymphocyte Count 0.66 X10^3/ul (0.83-4.51); Absolute Neutrophil Count 4.4 X10^3/uL (2.0-7.7); Hemoglobin 8.9 g/dl (13.0-16.5); Lymphocyte # 0.66 X10^3/ul (4.0); Lymphocyte % 12.9 % (19-41); Mean Corp Hgb Conc 31.8 g/gl (32-36); Mean Corpuscular Hgb 27.7 pg (27.0-32.0); Mean Corpuscular Volume 87.2 fL (80-94); Mean Platelet Vol. 10.1 fl (6.2-12.0); Monocyte# 0.04 X10^3/uL; Monocyte% 0.8 % (0-10); Neutrophil % 86.1 % (47-70); Platelet Count 263 K/mm3 (150-450); RBC Distribution Width CV 15.7 % (11.6-14.6); RBC Distribution Width SD 50.1 fl (35.1-43.9); Red Blood Count 3.21 M/mm3 (4.6-6.2); White Blood Count 5.1 K/mm3 (4.4-11.0)
[2018-06-28 14:58] LABS: POSITIVE COUNT NO; POSITIVE DIFFERENTIAL NO; POSITIVE MORPHOLOGY NO
--- NOTE | 2018-06-28 15:22 | CM.UR ---
RN CM Assessment Met face to face with patient for initial transition planning/care coordination assessment. Introduced myself and my role. Verb understanding and agreement for assessment. Presentation: increased sob PCP: Dr. Mendoza Preferred Pharmacy: [facility] Insurance: [facility] with [employer] supp Prescription Benefit: yes LNOK: Kwesi Romero and Significant Other, Rita. Home: 2 story home, 12 steps to main level. no difficulty w/steps usually. ADLs: Independent. Transportation: drives DME: cane, grab bars SNF/HHC: denies Passport/waiver proposal review analyst: denies Advance Directives: none on file. Nick Orosco is listed as HPOA. Asked him to bring in copies. Verb understanding. DC PLAN: Plan is go to Rita' for a little bit (significant other) Ronel Peterson RN, CCM.
[2018-06-28] MEDS: Doxazosin 4 MG Tablet 8 MG PO (22:17)
[2018-06-28] MEDS: Atorvastatin Calcium 80 MG Tablet PO (22:18)
[2018-06-29] VITALS (8 sets, daily range): BP systolic 145–156; BP diastolic 60–74; PULSE 55–78; RESP 16; TEMP 36.8–37; O2SAT 92–97
[2018-06-29] MEDS: hydrALAZINE 50 MG Tablet PO (05:33)
[2018-06-29] MEDS: 0.9% NaCl Peripheral Flush Adult/Peds IV (05:33)
[2018-06-29] MEDS: Ipratropium/Albuterol Sulfate 3 ML AMPUL.NEB INHALATION ×2 (07:32→11:01)
[2018-06-29 07:50] LABS: Anion Gap 11 (5-15); BUN 62 mg/dL (7-18); BUN/Creat Ratio 26.7 RATIO (10-20); Calcium,Total 8.5 mg/dL (8.5-10.1); Chloride 109 mmol/L (98-107); Creatinine, Serum 2.32 mg/dL (0.70-1.30); EST Glomerular Filtration Rate 30 mL/min (>60); Est Glom Filt Rate - Afr Amer 36 mL/min (>60); Estimated Creatinine Clearance 28.36 ml/min; Glucose 143 mg/dL (74-106); Potassium 3.3 mmol/L (3.5-5.1); Sodium Level 145 mmol/L (136-145)
[2018-06-29] MEDS: Multivitamins,Therapeutic Tablet 1 TABLET PO (09:20)
[2018-06-29] MEDS: Heparin Injection (Vial) 5,000 UNIT/ML VIAL 5000 UNIT SC (09:21)
[2018-06-29] MEDS: amLODIPine 10 MG Tablet PO (09:21)
[2018-06-29] MEDS: Aspirin E.C. 81 MG Tablet PO (09:21)
[2018-06-29] MEDS: Pantoprazole Sodium 20 MG Tablet PO (09:21)
[2018-06-29] MEDS: Carvedilol 25 MG Tablet PO (09:21)
[2018-06-29 09:30] LABS: Ferritin 115 ng/mL (26-388); Iron 44 ug/dL (65-175); Iron Binding Capacity,Total 208 ug/dL (250-450); PERCENT IRON SATURATION 21.2 % (15.0-55.0)
--- NOTE | 2018-06-29 11:10 | DCINST_ITS ---
- Discharge Diagnoses Current Active Problems: Current Active and Chronic Problems (Last Reviewed 05/27/17 @ 13:11 by Susanna Sneed) History of hypertension (Acute) History of hypercholesterolemia (Acute) Respiratory failure with hypoxia (Acute) New onset of congestive heart failure (Acute) Acute exacerbation of CHF (congestive heart failure) (Acute) CAD (coronary artery disease) (Chronic) HTN (hypertension) (Chronic) HLD (hyperlipidemia) (Chronic) Gout (Chronic) GERD (gastroesophageal reflux disease) (Chronic) COPD exacerbation (Acute) You will use the following diet at home:: Cardiac Discharge Activity: Return to Normal Activity Call your doctor if you observe: Shortness of breath, Dizziness, Fainting spells, Chest pain Allergies/Adverse Reactions: Allergies No Known Allergies Allergy (Verified 05/27/17 13:11) Medications to take at Discharge Amlodipine [Norvasc] 10 mg PO DAILY 05/15/16 Aspirin [Aspirin EC] 81 mg PO DAILY 05/15/16 Atorvastatin Calcium [Lipitor] 80 mg PO QHS 05/15/16 Doxazosin Mesylate [Cardura] 8 mg PO QHS 05/15/16 Ezetimibe [Zetia] 10 mg PO QHS 05/15/16 Multivitamin [Daily Multiple Vitamin] 1 ea PO DAILY 05/15/16 Nitroglycerin [Nitrostat] 0.4 mg SL PRN PRN 05/15/16 Carvedilol 25 mg PO BID 06/27/18 Omeprazole 20 mg PO DAILY 06/27/18 hydrALAZINE [Apresoline] 50 mg PO TID 06/27/18 Albuterol Inhaler [Ventolin Hfa] 1 - 2 puff INHALATION Q4H PRN PRN #1 inhaler 06/29/18 Furosemide [Lasix] 40 mg PO DAILY #30 tablet 06/29/18 Prednisone See Taper PO DAILY #30 tablet 06/29/18 The following prescriptions were given: Albuterol Inhaler [Ventolin Hfa] 1 - 2 puff INHALATION Q4H PRN PRN #1 inhaler PRN Reason: Shortness Of Breath Furosemide [Lasix] 40 mg PO DAILY #30 tablet Prednisone See Taper PO DAILY #30 tablet Primary Care Physician: Jeremiah Mendoza MD [Primary Care Provider] - Please follow up with your Primary Care Physician in: 1 Week Test Results: Test results from this visit will be discussed in further detail at your follow- up appointment, if applicable. Please Follow Up With: Simón Mo MD - Or Dr. Rogers When: Establish with Pulmonary Medicine, call for appt Proposed Discharge Date: 06/29/18
--- NOTE | 2018-06-29 11:13 | PCM.DC.SUM ---
<Brittaney Phillip - Last Filed: 06/29/18 11:23> Discharge Date and Diagnosis Date of Admission: 06/27/18 Date of Discharge: 06/29/18 - Primary Discharge Diagnosis Active and Suspected Problems (Last Reviewed 05/27/17 @ 13:11 by Susanna Sneed) 1. Acute hypoxic respiratory insufficiency secondary to acute diastolic CHF and acute COPD exacerbation 2. Acute diastolic CHF 3. Presumed acute on chronic COPD exacerbation 4. CAD status post CABG 5. PAD/carotid disease 6. Hypertension 7. Hyperlipidemia 8. BRAYDON on Chronic kidney disease stage III 9. Chronic normocytic anemia 10. History of TIA 11. GERD - Secondary Discharge Diagnosis Chronic Problems (Last Reviewed 05/27/17 @ 13:11 by Susanna Sneed) CAD (coronary artery disease) (Chronic) HTN (hypertension) (Chronic) HLD (hyperlipidemia) (Chronic) Gout (Chronic) GERD (gastroesophageal reflux disease) (Chronic) PAD (peripheral artery disease) (Chronic) Carotid stenosis, bilateral (Chronic) Hospital Course and Treatment Imaging Results: Diagnostic Data Chest X-Ray 06/27/18 12:28 IMPRESSION: No new focal patchy airspace opacities or significant pleural effusions COPD/emphysema with costophrenic angle blunting Cardiac surgery Electronically Signed: Lauri Chen DO at 13:15 EDT Tel , Service support , Operations: None Procedures: 2-D Echocardiogram Summary of Care Provided: The patient is a 73 year old M admitted 06/27/2018 due to dyspnea. 1. Acute hypoxic respiratory insufficiency secondary to acute diastolic CHF and acute COPD exacerbation-weaned off of supplemental oxygen. Walking pulse ox completed prior to discharge and patient did not require further supplemental oxygen. 2. Acute diastolic CHF-BNP on admission 1999. Chest x-ray with COPD/emphysema with costophrenic angle blunting. Pulmonary vascularity slightly increased. Echocardiogram shows an EF of 60%, mild mitral valve stenosis, mild to moderate mitral valve insufficiency, mild aortic stenosis, RVSP estimated to be 39 mmHg, diastolic dysfunction. Increase home Lasix regimen to 40mg daily from 20mg daily. Advised on ARNULFO hose use. 3. Presumed acute on chronic COPD exacerbation-chest x-ray with COPD. No former PFTs. Patient does have prior tobacco use. IV Solu-Medrol during admission, transition to prednisone taper at [place]. Albuterol inhaler PRN. Respiratory panel negative. Establish with pulmonary medicine as outpatient for PFTs, referred to Dr. Mo or Dr. Rogers. 4. CAD status post CABG-continue aspirin, statin, beta-greg regimen. 5. PAD/carotid disease-continue aspirin, statin. 6. Hypertension-stable, continue Norvasc, Coreg. 7. Hyperlipidemia-continue statin. 8. BRAYDON on Chronic kidney disease stage III-acute kidney injury due to IV Lasix. IV Lasix discontinued. Recommend repeat BMP in 1 week by primary care physician to reassess kidney function. 9. Chronic normocytic anemia-below baseline during admission. Iron studies with mild iron deficiency anemia. Begin iron supplementation at discharge. Repeat CBC by primary care physician in 1 week. 10. History of TIA-continue aspirin, statin. 11. GERD-continue PPI. General: Alert, Oriented x3, Cooperative HEENT: Atraumatic, PERRLA, EOMI, Normocephalic Neck: Supple, No JVD, Negative Carotid Bruits Lungs: Clear to auscultation, Diminished Cardiovascular: Regular rate, Regular Rhythm, Normal S1, Normal S2, No murmurs Abdomen: Bowel Sounds Present, Soft, Non Tender, Non-Distended Extremities: No clubbing, No cyanosis, No edema, Capillary Refill Less than 3 Seconds Skin: No rashes, No breakdown Musculoskeletal: No Tenderness to Palpation of Joints or Extremities Neurological: Cranial nerves II-XII grossly intact, Neuro grossly intact Psych/Mental Status: Normal Affect, Appropriate Patient seen and examined prior to discharge. Physical assessment as noted above. Patient is stable for discharge with follow up recommendations as noted above. This patient was seen by DARIN Og under the supervision of Dr. Batres. - Physical Exam Vital Signs Temp Pulse Resp BP Pulse Ox 98.3 F 66 16 145/60 H 97 06/29/18 09:11 06/29/18 11:02 06/29/18 11:02 06/29/18 09:11 06/29/18 11:02 Oxygen Flow Rate (L/min) 4 Oxygen Delivery Method Room Air Weight: 173 lb 1.006 oz Body Mass Index (BMI) 26.8 Intake and Output for Last 24 Hours 06/27/18 06/28/18 06/29/18 23:59 23:59 23:59 Intake Total 120 / 120 1080 / 1080 120 / 120 Output Total 3525 / 3525 650 / 650 Balance 120 / 120 -2445 / -2445 -530 / -530 Microbiology Past 72 Hours 06/28/18 07:00 Gram Stain - Final Sputum, Expectorated/Coughed 06/27/18 16:54 Respiratory Panel (PCR) - Final Mucosa - Nasopharyngeal Laboratory Tests Past 24 Hrs 06/28/18 06/29/18 06/29/18 06:49 06:00 06:00 WBC 5.1 RBC 3.21 L Hgb 8.9 L Hct 28.0 L MCV 87.2 MCH 27.7 MCHC 31.8 L RDW 15.7 H RDW Differential 50.1 H Plt Count 263 MPV 10.1 Immature Gran % (Auto) 0.200 Neut % (Auto) 86.1 H Lymph % (Auto) 12.9 L [place] % (Auto) 0.8 Eos % (Auto) 0.0 Baso % (Auto) 0.0 Absolute Neuts (auto) 4.4 Absolute Lymphs (auto) 0.66 L Total Counted Not Reportable Sodium Potassium Chloride Carbon Dioxide Anion Gap BUN Creatinine Estim Creat Clear Calc Est GFR (MDRD) Af Amer Est GFR (MDRD) Non-Af BUN/Creatinine Ratio Glucose Calcium Iron 44 L TIBC 208 L Iron Saturation 21.2 Ferritin 115 Vitamin B12 Pending Folate 19.60 06/29/18 06:15 WBC RBC Hgb Hct MCV MCH MCHC RDW RDW Differential Plt Count MPV Immature Gran % (Auto) Neut % (Auto) Lymph % (Auto) [place] % (Auto) Eos % (Auto) Baso % (Auto) Absolute Neuts (auto) Absolute Lymphs (auto) Total Counted Sodium 145 Potassium 3.3 L Chloride 109 H Carbon Dioxide 25.0 Anion Gap 11 BUN 62 H Creatinine 2.32 H Estim Creat Clear Calc 28.36 Est GFR (MDRD) Af Amer 36 L Est GFR (MDRD) Non-Af 30 L BUN/Creatinine Ratio 26.7 H Glucose 143 H Calcium 8.5 Iron TIBC Iron Saturation Ferritin Vitamin B12 Folate Discharge Diet: Low fat/ Low Cholesterol Discharge Activity: Return to Normal Activity Call your doctor if you observe: Shortness of breath, Dizziness, Fainting spells, Chest pain Home Medications: Medications to take at Discharge Amlodipine [Norvasc] 10 mg PO DAILY 05/15/16 Aspirin [Aspirin EC] 81 mg PO DAILY 05/15/16 Atorvastatin Calcium [Lipitor] 80 mg PO QHS 05/15/16 Doxazosin Mesylate [Cardura] 8 mg PO QHS 05/15/16 Ezetimibe [Zetia] 10 mg PO QHS 05/15/16 Multivitamin [Daily Multiple Vitamin] 1 ea PO DAILY 05/15/16 Nitroglycerin [Nitrostat] 0.4 mg SL PRN PRN 05/15/16 Carvedilol 25 mg PO BID 06/27/18 Omeprazole 20 mg PO DAILY 06/27/18 hydrALAZINE [Apresoline] 50 mg PO TID 06/27/18 Albuterol Inhaler [Ventolin Hfa] 1 - 2 puff INHALATION Q4H PRN PRN #1 inhaler 06/29/18 Ferrous Sulfate [Iron] 325 mg PO BID #60 tablet 06/29/18 Furosemide [Lasix] 40 mg PO DAILY #30 tablet 06/29/18 Prednisone See Taper PO DAILY #30 tablet 06/29/18 Following Prescrptions Were Given to Patient: Albuterol Inhaler [Ventolin Hfa] 1 - 2 puff INHALATION Q4H PRN PRN #1 inhaler PRN Reason: Shortness Of Breath Furosemide [Lasix] 40 mg PO DAILY #30 tablet Prednisone See Taper PO DAILY #30 tablet Ferrous Sulfate [Iron] 325 mg PO BID #60 tablet Primary Care Physician: Jeremiah Mendoza MD [Primary Care Provider] - Please follow up with your Primary Care Physician in: 1 Week Please Follow Up With: Simón Mo MD - Or Dr. Rogers When: Establish with Pulmonary Medicine, call for appt Disposition: Home Minutes spent on discharge:: 35 Patient Condition:: Stable Medical Necessity - Tobacco Use Smoking Status: Former smoker Tobacco Use: Non-smoker Meaningful Use Info Meaningful Use Diagnoses (Choose all that apply): CHF - CHF ELEAZAR/ARB ordered at discharge?: No Reason ELEAZAR/ARB not ordered?: Worsening renal function Documented LVEF (%): 60 - ELEAZAR/ARB not indicated <Simón Batres - Last Filed: 06/29/18 11:35> Discharge Date and Diagnosis - Secondary Discharge Diagnosis Chronic Problems (Last Reviewed 05/27/17 @ 13:11 by Susanna Sneed) CAD (coronary artery disease) (Chronic) HTN (hypertension) (Chronic) HLD (hyperlipidemia) (Chronic) Gout (Chronic) GERD (gastroesophageal reflux disease) (Chronic) PAD (peripheral artery disease) (Chronic) Carotid stenosis, bilateral (Chronic) Hospital Course and Treatment Summary of Care Provided: This patient was seen in conjunction with DARIN Og . I have independently interviewed and examined the patient and reviewed pertinent historical, laboratory, and other data. Please refer to DARIN Og note for details of this patient's presentation, findings, and recommendations. I have reviewed DARIN Og note and concur with documented findings. In brief, patient is a 89-year-old male who presented with progressive shortness of breath with associated bipedal edema Assessment: 1. Acute diastolic congestive heart failure 2. COPD exacerbation 3. CAD with previous CABG 4. Essential hypertension 5. Dyslipidemia 6. Peripheral arterial disease 7. Chronic kidney disease stage III 8. History of TIAs 9. Anemia secondary to anemia of chronic disorder 10. GERD Hospital course: As documented above - Physical Exam Vital Signs Temp Pulse Resp BP Pulse Ox 98.3 F 66 16 145/60 H 97 06/29/18 09:11 06/29/18 11:02 06/29/18 11:02 06/29/18 09:11 06/29/18 11:02 Oxygen Flow Rate (L/min) 4 Oxygen Delivery Method Room Air Weight: 78.5 kg Body Mass Index (BMI) 26.8 Intake and Output for Last 24 Hours 06/27/18 06/28/18 06/29/18 23:59 23:59 23:59 Intake Total 120 / 120 1080 / 1080 120 / 120 Output Total 3525 / 3525 650 / 650 Balance 120 / 120 -2445 / -2445 -530 / -530 Microbiology Past 72 Hours 06/28/18 07:00 Gram Stain - Final Sputum, Expectorated/Coughed 06/27/18 16:54 Respiratory Panel (PCR) - Final Mucosa - Nasopharyngeal Laboratory Tests Past 24 Hrs 06/28/18 06/29/18 06/29/18 06:49 06:00 06:00 WBC 5.1 RBC 3.21 L Hgb 8.9 L Hct 28.0 L MCV 87.2 MCH 27.7 MCHC 31.8 L RDW 15.7 H RDW Differential 50.1 H Plt Count 263 MPV 10.1 Immature Gran % (Auto) 0.200 Neut % (Auto) 86.1 H Lymph % (Auto) 12.9 L [place] % (Auto) 0.8 Eos % (Auto) 0.0 Baso % (Auto) 0.0 Absolute Neuts (auto) 4.4 Absolute Lymphs (auto) 0.66 L Total Counted Not Reportable Sodium Potassium Chloride Carbon Dioxide Anion Gap BUN Creatinine Estim Creat Clear Calc Est GFR (MDRD) Af Amer Est GFR (MDRD) Non-Af BUN/Creatinine Ratio Glucose Calcium Iron 44 L TIBC 208 L Iron Saturation 21.2 Ferritin 115 Vitamin B12 Pending Folate 19.60 06/29/18 06:15 WBC RBC Hgb Hct MCV MCH MCHC RDW RDW Differential Plt Count MPV Immature Gran % (Auto) Neut % (Auto) Lymph % (Auto) [place] % (Auto) Eos % (Auto) Baso % (Auto) Absolute Neuts (auto) Absolute Lymphs (auto) Total Counted Sodium 145 Potassium 3.3 L Chloride 109 H Carbon Dioxide 25.0 Anion Gap 11 BUN 62 H Creatinine 2.32 H Estim Creat Clear Calc 28.36 Est GFR (MDRD) Af Amer 36 L Est GFR (MDRD) Non-Af 30 L BUN/Creatinine Ratio 26.7 H Glucose 143 H Calcium 8.5 Iron TIBC Iron Saturation Ferritin Vitamin B12 Folate Code Visit Inpatient E&M: 09007 Disch Hosp
[2018-06-30 08:59] LABS: Vitamin B12 518 pg/mL (211-911)
--- NOTE | 2018-07-01 15:40 | CASEMGMT ---
JEROD HART Discharge F/U Phone Call LACE: 10 Strata: 3 Discharge date: 06/29/18 Call date: 07/01/18 Call time: [id number] Duration: 3 minutes Admission dx: New onset CHF Pt states has been doing 'real good' since discharge and states is actually loading a trailer with [place] as we speak. Pt states no questions regarding discharge instructions/medications at this time. Pt states that he is 'working on' PCP f/u and has pulmonary f/u in august. Pt states no suggestions for [facility] at this time and states 'everything worked out great.' Pt voices no further questions/concerns/needs at this time. SStaten JEROD HART
== END 2018-06-29 12:51 | disposition home or self-care (01) | DRG 291 ==
LOC: ED 15:02 → PCU 15:55
PROVIDERS: Nurse Practitioner Family; Admitting Provider Family Medicine; Emergency Provider Emergency Medicine; Family Provider Family Medicine; PCP Family Medicine; Visit Provider Internal Medicine
DX: I13.0 Hypertensive heart and chronic kidney disease with heart failure and stage 1 through stage 4 chronic kidney disease, or unspecified chronic kidney disease (principal); I50.31 Acute diastolic (congestive) heart failure; J44.1 Chronic obstructive pulmonary disease with (acute) exacerbation; N17.9 Acute kidney failure, unspecified; N18.3 Chronic kidney disease, stage 3 (moderate); I25.10 Atherosclerotic heart disease of native coronary artery without angina pectoris; E78.5 Hyperlipidemia, unspecified; R06.89 Other abnormalities of breathing; R09.02 Hypoxemia; K21.9 Gastro-esophageal reflux disease without esophagitis; I73.9 Peripheral vascular disease, unspecified; M10.9 Gout, unspecified; I65.23 Occlusion and stenosis of bilateral carotid arteries; D50.9 Iron deficiency anemia, unspecified; Z95.1 Presence of aortocoronary bypass graft; Z87.891 Personal history of nicotine dependence; Z86.73 Personal history of transient ischemic attack (TIA), and cerebral infarction without residual deficits
CPT/HCPCS: 36415; 36600; 71046; 80048; 80061; 82607; 82728; 82746; 82803; 83036; 83540; 83550; 83735; 83880; 84443; 84484; 85025; 87070; 87077; 87184; 87186; 87205; 87633; 93005; 93306; 94640; 97110; 97116; 97162; 97802; 99283; Q9957; A4216; J1940

== ENCOUNTER → 2018-09-17 | Outpatient (CLI) | payer MEDICARE, OTHER, SELFPAY ==
[2018-09-17 08:48] VITALS: BMI 26.3
[2018-09-17 12:38] LABS: Absolute Lymphocyte Count 1.34 X10^3/uL (0.83-4.51); Absolute Neutrophil Count 6.2 X10^3/uL (2.0-7.7); Basophil# 0.08 X10^3/uL; Basophil% 0.9 % (0-1); Eosinophil# 0.28 X10^3/uL; Eosinophils% 3.2 % (0-5); Hematocrit 34.9 % (40-54); Lymphocyte # 1.34 X10^3/ul (4.0); Lymphocyte % 15.3 % (19-41); Mean Corp Hgb Conc 31.5 g/dL (32-36); Mean Corpuscular Hgb 26.2 pg (27.0-32.0); Mean Corpuscular Volume 83.1 fL (80-94); Mean Platelet Vol. 10.7 fl (6.2-12.0); Monocyte# 0.83 X10^3/uL; Monocyte% 9.5 % (0-10); NRBC Flagged by Analyzer 0 % (0-5); Neutrophil # 6.16 X10^3/uL (2.7-7.7); Neutrophil % 70.6 % (47-70); Platelet Count 236 K/mm3 (150-450); RBC Distribution Width CV 16.7 % (11.6-14.6); RBC Distribution Width SD 50.6 fl (35.1-43.9); White Blood Count 8.7 K/mm3 (4.4-11.0)
[2018-09-17 12:50] LABS: AST(SGOT) 12 U/L (15-37); Alanine Aminotransfer ALT/SGPT 17 U/L (16-61); Albumin, Serum 3.7 g/dL (3.2-5.0); Alkaline Phosphatase 104 U/L (45-117); Anion Gap 9 (5-15); BUN 43 mg/dL (7-18); Bilirubin, Direct 0.15 mg/dL (0.00-0.30); Calcium,Total 9.2 mg/dL (8.5-10.1); Chloride 105 mmol/L (98-107); Cholesterol 142 mg/dL (200); Creatinine, Serum 1.72 mg/dL (0.70-1.30); EST Glomerular Filtration Rate 42 mL/min (>60); Est Glom Filt Rate - Afr Amer 50 mL/min (>60); Globulin 4.4 g/dL (2.2-4.2); Glucose 111 mg/dL (74-106); High Density Lipoprotein 52 mg/dL; Potassium 3.9 mmol/L (3.5-5.1); Protein, Total 8.1 g/dL (6.4-8.2); Sodium Level 141 mmol/L (136-145); Triglycerides 63 mg/dL; Very Low Density Lipoprotein 13 mg/dL (5-40)
== END | disposition home or self-care (01) ==
LOC: LAB 11:23
PROVIDERS: Family Provider Family Medicine; PCP Family Medicine; Referring Provider Internal Medicine Cardiovascular Disease; Visit Provider Internal Medicine Cardiovascular Disease
DX: E78.5 Hyperlipidemia, unspecified (principal); I73.9 Peripheral vascular disease, unspecified; Z95.1 Presence of aortocoronary bypass graft
CPT/HCPCS: 36415; 80048; 80061; 80076; 85025

== ENCOUNTER → 2018-09-23 | Outpatient (CLI) | payer MEDICARE, OTHER, SELFPAY ==
[2018-08-28 09:58] VITALS: BMI 26.7
[2018-09-17 13:15] VITALS: BMI 26.3
--- NOTE | 2018-09-23 13:15 | PFTCOMP ---
COMPLETE PULMONARY FUNCTION TEST INTERPRETATION Brief HPI: Patient is a 73 year old male, currently under the care of Dr. Rogers, who presents to [facility] for complete pulmonary function tests secondary to diagnosis of COPD. Respiratory therapist reports good effort and reproducible results. Interpretation: Forced expiration spirometry shows no large airways obstructive ventilatory defect with an FEV1 of 74% predicted. There is no significant bronchodilator response by strict ATS criteria. Spirograms are of good quality and plateau normally. The respiratory flow volume loop shows a normal pattern. Lung volumes by body plethysmography show a decreased total lung capacity at 4.85 L, 81% predicted. All other lung volumes are reduced symmetrically. Diffusion capacity by carbon monoxide is decreased at 48% predicted. The airway resistance is elevated. No previous pulmonary function tests were available for review. Impression: Mild restrictive ventilatory defect with a reduction of diffusion capacity out of proportion to level of restriction indicating a possible concomitant pulmonary vascular disorder.
== END | disposition home or self-care (01) ==
LOC: PSN 08:51
PROVIDERS: Family Provider Family Medicine; PCP Family Medicine; Referring Provider Internal Medicine Critical Care Medicine; Visit Provider Internal Medicine Critical Care Medicine
DX: J44.9 Chronic obstructive pulmonary disease, unspecified (principal)
CPT/HCPCS: 94060; 94726; 94729

== ENCOUNTER → 2018-09-26 | Outpatient (CLI) | payer MEDICARE, OTHER, SELFPAY ==
[2018-09-17 08:48] VITALS: BMI 26.3
[2018-09-17 13:15] VITALS: BMI 26.3
--- NOTE | 2018-09-26 09:37 | CDU_ITS ---
Reason For Study: Carotid stenosis Rt. Velocities/BP Lt. Velocities/BP Prox CCA 86.5/8.2 cm/sec. Prox CCA 81.6/11.3 cm/sec. Mid CCA 69.5/13.5 cm/sec. Mid CCA 115.6/15.2 cm/sec. Dist CCA 58.6/11.3 cm/sec. Dist CCA 124.7/22.5 cm/sec. Prox ICA 54.2/16.8 cm/sec. Prox ICA 119.2/22.6 cm/sec. Mid ICA 132.8/21.7 cm/sec. Mid ICA 149.9/33.6 cm/sec. Dist ICA 99/1.17.8 cm/sec. Dist ICA 167.4/24.8 cm/sec. Rt. ICA/CCA = 1.9. Lt. ICA/CCA = 1.4. Prox ECA 532.5/29.9 cm/sec. Prox ECA 323.9/18.5 cm/sec. Rt. Vert. 48.7/6.9 cm/sec. Lt. Vert. 112.6/22.6 cm/sec. Right Extracranial There is homogeneous, smooth atherosclerotic plaque noted in the right common carotid artery. There is heterogeneous, irregular atherosclerotic plaque noted in the right internal carotid artery. There is heterogeneous, irregular atherosclerotic plaque noted in the right external carotid artery. Antegrade flow is noted in the right vertebral artery. Left Extracranial There is homogeneous, smooth atherosclerotic plaque noted in the left common carotid artery. Stent noted starting at mid CCA. There is homogeneous, smooth atherosclerotic plaque noted in the left internal carotid artery. Stent noted throughout ends at mid ICA. There is heterogeneous, irregular atherosclerotic plaque noted in the left external carotid artery. Antegrade flow is noted in the left vertebral artery. Procedure Carotid Duplex 21893. Exam performed in department. Interpretation Summary Post surgical changes right carotid bulb and proximal internal carotid. Irregular plague at the proximal right internal carotid 50-69% stenosis right internal carotid >50% stenosis right external carotid Left common carotid/internal carotid stent noted. Carotid criteria may not be accurate in presence of a stent. 50-69% stenosis left internal carotid >50% stenosis left external carotid <50% stenosis right vertebral <50% stenosis by criteria left vertebral although with elevated PSV of 112.6 cm/sec. Ordering Physician: Ferny Chu Referring Physician: Jeremiah Mendoza Performed By: Karena Alas RVT
--- NOTE | 2018-09-26 09:37 | ART_ITS ---
Reason For Study: PVD Procedure A bilateral lower extremity continuous wave Doppler with analog waveform analysis,segmental pressures,and ankle brachial indexes without exercise. Left Segmental Pressures Left brachial= 183mmHg. Left thigh = 124mmHg. Left calf = 75mmHg. Left posterior tibial artery = 111mmHg. Left dorsalis pedis artery = 104mmHg. Left digit = 30 mmHg. The left dorsalis pedis waveforms are monophasic. The left posterior tibial artery waveforms are biphasic. Right Segmental Pressures Right brachial= 189mmHg. Right thigh = 97mmHg. Right calf = 101mmHg. Right posterior tibial artery = 77mmHg. Right dorsalis pedis artery = 80mmHg. Right digit = 25 mmHg. The right dorsalis pedis waveforms are monophasic. The right posterior tibial artery waveforms are monophasic. Indices The right ankle brachial index by the dorsalis pedis is 0.42. The right ankle brachial index by the posterior tibial artery is 0.41. The right digital-brachial index is 0.13. The left ankle brachial index by the dorsalis pedis is 0.55. The left ankle brachial index by the posterior tibial artery is 0.59. The left digital-brachial index is 0.16. Interpretation Summary Severe or multi-segmental disease right lower extremity Moderately severe disease left lower extremity Abnormal bilateral digital brachial indices Bilateral aorto/iliac/femoral disease suspected Ordering Physician: Ferny Chu Referring Physician: Yuliana Brown M.D. Performed By: Karena Alas RVT
== END | disposition home or self-care (01) ==
LOC: CVS 09:24
PROVIDERS: Family Provider Family Medicine; PCP Family Medicine; Referring Provider Surgery; Visit Provider Surgery
DX: I65.23 Occlusion and stenosis of bilateral carotid arteries (principal); I73.9 Peripheral vascular disease, unspecified
CPT/HCPCS: 93880; 93923

== ENCOUNTER → 2018-10-16 | Outpatient (CLI) | payer MEDICARE, OTHER, SELFPAY ==
[2018-10-08 07:45] VITALS: BMI 26.1
--- NOTE | 2018-10-16 08:24 | AAAS_ITS ---
Reason For Study: Screening Aorta Measurements Aorta Doppler Measurements Proximal aorta measures0.95 x 0.99cm. in cross- Peak systolic flow velocities within the proximal sectional axis. aorta measure 118.2 cm/sec. Proximal aorta measures0.95cm. in longitudinal Peak systolic flow velocities within the mid aorta axis. measure 97.4 cm/sec. Mid aorta measures0.96 x 1.02cm. in cross- Peak systolic flow velocities within the distal sectional axis. aorta measure 258.2 cm/sec. Mid aorta measures0.95cm. in longitudinal axis. Distal aorta measures0.91 x 0.89cm. in cross- sectional axis. Distal aorta measures0.89cm. in longitudinal axis. Left Iliac Artery Left iliac artery measures 0.41 x 0.47 cm. in the cross-sectional axis. Left iliac artery measures 0.44 cm. in the longitudinal axis. Peak systolic velocity in the left iliac artery measures 329.6 cm/sec. Right Iliac Artery Right iliac artery measures 0.57 x 0.6 cm. in the cross-sectional axis. Right iliac artery measures 0.52 cm. in the longitudinal axis. Peak systolic velocity in the right iliac artery measures 207 cm/sec. Procedure Aorta IVC Iliac vasculature or bypass grafts 10961. Exam performed in department. Interpretation Summary No evidence for abdominal aortic aneurysm with maximal aortic diameter 0.96 x 1.02 cm Doubling of velocity in the distal aorta suspicous for >50% stenosis. Left common iliac artery small at 0.41 x 0.47cm Right common iliac artery 0.57 x 0.6cm Abnormal velocities are noted in bilateral iliac arteries, partically on the left. Ordering Physician: Ferny Chu Referring Physician: Jeremiah Mendoza Performed By: Karena Alas RVT
== END | disposition home or self-care (01) ==
LOC: CVS 08:20
PROVIDERS: Family Provider Family Medicine; PCP Family Medicine; Referring Provider Surgery; Visit Provider Surgery
DX: Z13.6 Encounter for screening for cardiovascular disorders (principal)
CPT/HCPCS: 76706

== ENCOUNTER → 2018-10-20 | Outpatient (CLI) | payer MEDICARE, OTHER, SELFPAY ==
[2018-09-17 13:15] VITALS: BMI 26.3
[2018-10-08 07:45] VITALS: BMI 26.1
--- NOTE | 2018-10-20 12:03 | STRESSREP_ITS ---
Stress Test Report Pharmacologic myocardial perfusion stress test. 73-year-old man with a history of triple-vessel disease status post coronary artery bypass surgery. Stress protocol: Resting EKG demonstrates sinus bradycardia with a rate of 48 bpm normal intervals are noted resting blood pressure 170/70 mmHg. 0.4 mg of regadenoson was infused per usual protocol followed by rapid intravenous saline flush injection continuous EKG monitoring was performed. The patient maintained sinus rhythm throughout the recording. T wave inversions were noted in leads II, III and aVF V5 and V6. Occasional premature ventricular complexes were noted. There were no significant ST or T wave changes noted suggest ischemia. The resting blood pressure was 170/70 mmHg final blood pressure 178/60 mmHg suggesting hypertension. Myocardial perfusion protocol. 11.9 mCi of technetium 99m sestamibi was injected at rest. 0.4 mg of regadenoson was infused per usual protocol peak infusion 33.8 mCi of technetium 99m sestamibi was injected stress images were obtained stress and rest images were reconstructed in comparing the short axis vertical and horizontal long ax is. Gated images were also obtained Perfusion SPECT analysis: Review of the stress images demonstrate normal perfusion noted in most areas of the myocardium. The resting images similar demonstrate normal perfusion noted in all areas of the myocardium. No obvious areas of reversibility are noted suggest ischemia. Gated SPECT analysis: The gated ejection fraction is noted to be 45%. Conclusion: Myocardial perfusion stress test with no evidence of ischemia. Mild cardiomyopathy noted.
== END | disposition home or self-care (01) ==
LOC: CVS 06:30
PROVIDERS: Family Provider Family Medicine; PCP Family Medicine; Referring Provider Internal Medicine Cardiovascular Disease; Visit Provider Internal Medicine Cardiovascular Disease
DX: I25.10 Atherosclerotic heart disease of native coronary artery without angina pectoris (principal); Z95.1 Presence of aortocoronary bypass graft
CPT/HCPCS: 78452; 93017; A9500; A4216; J2785

== ENCOUNTER 2019-04-07 09:46 | Inpatient (IN) | payer MEDICARE, OTHER, SELFPAY ==
[2019-04-06 08:46] VITALS: BMI 27.2
[2019-04-07] VITALS (13 sets, daily range): BP systolic 142–163; BP diastolic 63–78; PULSE 56–62; RESP 15–20; TEMP 36.4–36.7; O2SAT 90–97; BMI 26.4; BMI 26.7; BMI 26.8
--- NOTE | 2019-04-07 10:02 | EKG12_ITS ---
Test Reason : Blood Pressure : / mmHG Vent. Rate : 057 BPM Atrial Rate : 057 BPM P-R Int : 226 ms QRS Dur : 108 ms QT Int : 486 ms P-R-T Axes : 021 045 172 degrees QTc Int : 473 ms Sinus bradycardia with 1st degree A-V block Left ventricular hypertrophy with repolarization abnormality Abnormal ECG Confirmed by ARELY JONES ([id number]), sound editor JEFFREY ALANIZ ([id number]) on 04/10/2019 9:44:56 AM Referred By: MCKENZIE Confirmed By:ARELY JONES
--- NOTE | 2019-04-07 10:04 | CT_ITS ---
STUDY: CTA CHEST REASON FOR EXAM: Male, 73 years old. HYPOXIA/SHORTNESS OF BREATH -- HX-TIA,CAD,CABG,HTN,CKD STAGE 3 -- PRIOR SMOKER RADIATION DOSAGE (If Supplied By Facility): CTDIvol = ( 13.63 ) mGy, DLP = ( 422.05 ) mGycm TECHNIQUE: The examination was performed with the intravenous administration of 75CC ISOVUE 370. Post-processing of the angiographic images was performed, with multiplanar reformation and 3D reconstruction. Individualized dose optimization techniques were used for this CT. COMPARISON: None. FINDINGS: Normal enhancement of the main pulmonary artery and right and left pulmonary arteries. Normal enhancement of the bilateral peripheral pulmonary arteries. There is no demonstrated pulmonary embolism. There is atherosclerotic calcification of the aortic arch with tortuosity. There is no demonstrated aortic dissection. Sternal cerclage wires and vascular clips are present from a prior sternotomy and coronary artery bypass graft procedure (CABG). There are calcifications of the coronary arteries. There are visualized mediastinal lymph nodes, which are within normal size limits, and with normal morphology. Mildly enlarged bilateral hilar lymph nodes. Normal visualized trachea and bronchi. Diffuse increased interstitial markings in both lungs with the cystic changes in the upper lobes suggestive of bronchiectasis. Bilateral pleural effusions right greater than left with bibasilar atelectasis and/or infiltrates. This is worse on the right side. Normal chest wall structures. There are degenerative changes of thoracic spine. Normal visualized upper abdomen. CT/CTA Chest W/WO Contrast IMPRESSION: No evidence of pulmonary embolism. Bilateral pleural effusions right greater than left with underlying bibasilar atelectasis and/or infiltration superimposed on chronic interstitial scarring. Electronically Signed: Boy Bocanegra, at 11:55 EST , Service support ,
[2019-04-07 10:25] LABS: Absolute Lymphocyte Count 1.02 X10^3/uL (0.83-4.51); Absolute Neutrophil Count 5.6 X10^3/uL (2.0-7.7); Basophil# 0.05 X10^3/uL; Basophil% 0.7 % (0-1); Eosinophil# 0.16 X10^3/uL; Eosinophils% 2.1 % (0-5); Hemoglobin 9.9 g/dL (13.0-16.5); Lymphocyte # 1.02 X10^3/ul (4.0); Lymphocyte % 13.4 % (19-41); Mean Corp Hgb Conc 30.9 g/dL (32-36); Mean Corpuscular Volume 87.2 fL (80-94); Mean Platelet Vol. 10.5 fl (6.2-12.0); Monocyte% 9.2 % (0-10); NRBC Flagged by Analyzer 0 % (0-5); Neutrophil # 5.64 X10^3/uL (2.7-7.7); Neutrophil % 74.2 % (47-70); Platelet Count 200 K/mm3 (150-450); RBC Distribution Width CV 18.6 % (11.6-14.6); RBC Distribution Width SD 58.8 fl (35.1-43.9); Red Blood Count 3.67 M/mm3 (4.6-6.2); White Blood Count 7.6 K/mm3 (4.4-11.0)
[2019-04-07] MEDS: 0.9% Normal Saline 1,000 ML 1000 ML IV (10:34)
--- NOTE | 2019-04-07 10:38 | ED.DCSUM_ITS ---
- ER Visit Summary Date of Service: 04/07/19 Chief Complaint: [Shortness of breath] History of Present Illness: The patient is a 73 M [presents the emergency department complaint shortness of breath that he said for several weeks. Patient was seen by pulmonology today and noted to be hypoxic on room air with O2 sat in the 70s. Patient denies any cough or fever. He denies any chest pain. He does describe some orthopnea. Patient has had swelling in his legs off and on. He does have history of coronary artery disease, history of hypertension, high cholesterol, history of a flutter, history of peripheral vascular disease, and questionable history of CHF. Patient sent to ER for further evaluation by golf coach Dr. Rogers. Patient does not normally wear home O2.] Physical Examination: [HEENT-PERRLA, EOMI. Cranial nerves II through XII grossly intact. TMs clear. Mucous membranes moist. No adenopathy. Cardiovascular-regular rate and rhythm without murmur or ectopy Lungs-good aeration bilaterally with some faint rales in the bases. Some faint expiratory wheezes bilaterally. No accessory muscle use or retractions. No conversational dyspnea. Abdomen-normoactive bowel sounds, soft, nontender, no rebound or rigidity, no peritoneal signs. Extremities-intact ?4, normal range of motion, normal pulses, atraumatic. Patient has +2 edema in the left lower extremity and +1 edema right lower extremity.] Test Results: [EKG obtained arrival shows sinus rhythm with a ventricular rate of 57 bpm with some nonspecific ST changes. When compared with prior EKG from June 2018 the EKGs appear similar. CBC with differential white count 7.6, hem oglobin 9.9, hematocrit 32, platelets 200.] The chest obtained showed bilateral effusions superimposed on chronic interstitial lung disease and possible infiltration noted. BNP was elevated at over 3000 Emergency Department Course and Treatment: [Patient was given Lasix 40 mg IV.] Treatment Plan: [Admit] Disposition: [Admit] Impression: [CHF with pleural effusions Hypoxemia] This note was generated with [employer] software. It may contain incorrect words, spelling, and punctuation that were not noted in review of the chart prior to signing ED Disposition - Plan for ED Patient: Referrals: Jeremiah Mendoza MD [Primary Care Provider] -
[2019-04-07 10:42] LABS: Anion Gap 7 (5-15); BUN 41 mg/dL (7-18); BUN/Creat Ratio 21.1 RATIO (10-20); Calcium,Total 9.1 mg/dL (8.5-10.1); Chloride 112 mmol/L (98-107); Creatinine, Serum 1.94 mg/dL (0.70-1.30); EST Glomerular Filtration Rate 36 mL/min (>60); Est Glom Filt Rate - Afr Amer 44 mL/min (>60); Estimated Creatinine Clearance 33.91 ml/min; Glucose 115 mg/dL (74-106); Sodium Level 144 mmol/L (136-145)
[2019-04-07] MEDS: Furosemide 40 MG/4 ML Vial IV ×2 (11:45→21:57)
--- NOTE | 2019-04-07 12:28 | HP.PCM_ITS ---
Problem List (1) Atherosclerosis of coronary artery of [place] heart without angina pectoris Status: Chronic Comment: CABG x 4: Sequential BALES-LAD an D1, SVG-OM1, SVG- RPDA 08/14/12 (2) H/O coronary artery bypass surgery Status: Chronic Comment: CABG x 4: Sequential BALES-LAD an D1, SVG-OM1, SVG- RPDA 08/14/12 (3) Chronic diastolic (congestive) heart failure Status: Chronic (4) Bilateral carotid artery stenosis Status: Chronic Comment: Right CEA 2016, Left Carotid Stented 2003 (5) Paroxysmal atrial flutter Status: Chronic (6) Essential (primary) hypertension Status: Chronic (7) Hyperlipidemia Status: Chronic (8) Peripheral vascular occlusive disease Status: Chronic Comment: Bilateral iliac stents, left renal artery stent History of Present Illness Date of Admission: 04/07/19 Chief Complaint: Shortness of breath. The patient is a 73 year old M patient with past medical history as mentioned above was referred to the emergency department by Dr. Rogers, the cafe team member, for shortness of breath and hypoxia. Reportedly at the office, patient was hypoxic in the 70s on room air. Patient complained of shortness of breath that has been going on for 1 month, it is mainly in the morning after he wakes up from sleep and after he clears his sinuses, he feels better. He mentioned that his pulse ox at home in the morning has been in the 70s but after he clears his nasal sinuses, his pulse ox improved to 90%. He never been oxygen at home. He mentioned that he has been getting more short of breath with activity over the last several weeks, mainly on moderate exertion, associated with increasing bilateral leg swelling and without aggravating or relieving factors. He denied chest pain, palpitation, dizziness or lightheadedness. He did mention that he sleeps with head elevated but he denied walking up in the middle of the night short of breath. He denied fever or chills. He has history of chronic diastolic CHF and he has been on Lasix as well as beta blockers and hydralazine. There was a suspicion that he may have COPD but he had lung function test and COPD ruled out. He had a history of CAD status post CABG and he has been on aspirin, statins, Coreg, Zetia and hydralazine. He had a history of stage III chronic kidney disease and his baseline creatinine has been around 1.5 to 1.9 mg/dL. In the emergency department, patient was afebrile, bradycardic, blood pressure slightly elevated, pulse ox was 95% on 2 L. Routine blood work was remarkable for hemoglobin of 9.9 g/dL, BUN of 41, creatinine 0.94 which are chronic. EKG revealed sinus bradycardia, heart rate was in the 57, first-degree AV block, HI interval of 226 ms, T wave inverted in leads V4, V5 and V6. Troponin was 0.053. BNP was 3364. CTA chest done and showed no PE or dissection, revealed bilateral pleural effusion greater on the right side. Patient is being admitted for acute on chronic diastolic CHF, hypoxia and abnormal cardiac enzymes. Past Medical History Past Medical History (Chronic Problems): Chronic Problems (Last Updated 04/07/19 @ 12:17 by Vlad Javier MD) Stage III chronic kidney disease (Chronic) PND (post-nasal drip) (Chronic) Atherosclerosis of coronary artery of [place] heart without angina pectoris (Chronic) CABG x 4: Sequential BALES-LAD an D1, SVG-OM1, SVG-RPDA 08/14/12 H/O coronary artery bypass surgery (Chronic 08/14/12) CABG x 4: Sequential BALES-LAD an D1, SVG-OM1, SVG-RPDA 08/14/12 Chronic diastolic (congestive) heart failure (Chronic) Bilateral carotid artery stenosis (Chronic) Right CEA 2016, Left Carotid Stented 2003 Transient ischemic attack (Chronic) Paroxysmal atrial flutter (Chronic) Essential (primary) hypertension (Chronic) Hyperlipidemia (Chronic) Peripheral vascular occlusive disease (Chronic) Bilateral iliac stents, left renal artery stent Medical History: Medical History (Last Updated 04/07/19 @ 12:17 by Vlad Javier MD) Atherosclerosis of coronary artery of [place] heart without angina pectoris (Chronic) I25.10 CABG x 4: Sequential BALES-LAD an D1, SVG-OM1, SVG-RPDA 08/14/12 Chronic diastolic (congestive) heart failure (Chronic) I50.32 Bilateral carotid artery stenosis (Chronic) I65.23 Right CEA 2016, Left Carotid Stented 2003 Transient ischemic attack (Chronic) G45.9 Paroxysmal atrial flutter (Chronic) I48.92 Essential (primary) hypertension (Chronic) I10 Hyperlipidemia (Chronic) E78.5 Peripheral vascular occlusive disease (Chronic) I73.9 Bilateral iliac stents, left renal artery stent Anemia in chronic kidney disease (CKD) N18.9, D63.1 Arthritis M19.90 CVA (cerebral vascular accident) I63.9 Chronic kidney disease, stage 3 N18.3 GERD (gastroesophageal reflux disease) K21.9 Gout M10.9 Renal artery stenosis I70.1 left sided renal artery stent 2003 Stenosis of left subclavian artery I77.1 Respiratory failure with hypoxia J96.91 Allergies No Known Allergies Allergy (Verified 04/07/19 09:46) Home Medications: Ambulatory Orders Medication Instructions Recorded Amlodipine [Norvasc] 10 mg PO DAILY 05/15/16 Aspirin [Aspirin EC] 81 mg PO DAILY 05/15/16 Atorvastatin Calcium [Lipitor] 80 mg PO QHS 05/15/16 Doxazosin Mesylate [Cardura] 16 mg PO QHS 05/15/16 Ezetimibe [Zetia] 10 mg PO QHS 05/15/16 Multivitamin [Daily Multiple 1 ea PO DAILY 05/15/16 Vitamin] Nitroglycerin [Nitrostat] 0.4 mg SL PRN PRN 05/15/16 Omeprazole 20 mg PO DAILY 06/27/18 hydrALAZINE [Apresoline] 50 mg PO TID 06/27/18 Albuterol Inhaler [Ventolin Hfa] 1 - 2 puff INHALATION Q4H PRN PRN 06/29/18 #1 inhaler Furosemide [Lasix] 40 mg PO DAILY #30 tab 06/29/18 fluticasone propionate 50 2 spray INTRANASAL DAILY #16 g 10/02/18 mcg/actuation nasal spray,suspension ferrous sulfate 325 mg (65 mg 325 mg PO DAILY 01/16/19 iron) tablet carvedilol 25 mg tablet 50 mg PO BID #180 tab 03/03/19 Ipratropium Mason 1 spray NASAL DAILY 04/07/19 Surgical History: Surgical History (Last Reviewed 04/07/19 @ 12:34 by Vlad Javier MD) H/O coronary artery bypass surgery (Chronic) Onset Date: 08/14/12 Z95.1 CABG x 4: Sequential BALES-LAD an D1, SVG-OM1, SVG-RPDA 08/14/12 H/O basal cell carcinoma excision Onset Date: 09/2018 Z98.890, Z85.828 H/O colonoscopy Z98.890 2009-repeat 2019 History of angioplasty of peripheral vessel Z98.62 Bilateral iliac stents History of herniorrhaphy Z98.890, Z87.19 History of knee replacement Z96.659 History of left common carotid artery stent placement Onset Date: 2003 Z98.890, Z95.828 History of left heart catheterization Onset Date: 08/13/12 Z98.890 History of right-sided carotid endarterectomy Onset Date: 05/2016 Z98.890 History of stent insertion of renal artery Onset Date: 2003 Z98 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, and 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 Paternal Family History: Family History (Last Reviewed 04/07/19 @ 12:35 by Vlad Javier MD) Son CAD (coronary artery disease) Brother CAD (coronary artery disease) Diabetes Brother CAD (coronary artery disease) Diabetes History Items: Heart Disease, Hypertension Review of Systems Constitutional: Denies: Anorexia, Chills, Fever, Weakness Eyes: Denies: Blurred vision, Double vision, Drainage, Redness HEENT: Reports: Nasal Congestion, Post Nasal Drip. Denies: Difficulty Hearing, Dysphasia, Ear Pain, Sore Throat Cardiovascular: Reports: Edema. Denies: Chest Pain, Chest Pressure, Chest Tightness, Heaviness, Light Headedness, Palpitations, Syncope Respiratory: Reports: Shortness of breath upon exertion. Denies: Cough, Pleuritic Pain, Shortness of Breath, Sputum production, Wheezing Gastrointestinal: Denies: Abdominal Pain, Constipation, Diarrhea, Nausea, Vomiting Genitourinary: Denies: Dysuria, Frequency, Hematuria Musculoskeletal: Denies: Arm Pain, Back Pain, Foot Pain Skin: Denies: Dryness, Rash Neurological: Denies: Balance problems, Double vision, Change in Speech, Slurred speech, Confusion, Focal weakness, Headaches, Incoordination Psychiatric: Denies: Anxiety, Depression Endocrine: Denies: Change in Body Habitus, Polydipsia, Polyuria VTE Information - Inpt Only VTE Present on Admission: No VTE Mechan Device Prophylaxis: None VTE Pharm Prophylaxis ordered?: Yes - Physical Exam Vitals/I&O's: Vital Signs Temp Pulse Resp BP Pulse Ox 98.1 F 56 L 15 163/77 H 97 04/07/19 09:47 04/07/19 10:37 04/07/19 10:37 04/07/19 10:37 04/07/19 10:37 Oxygen Flow Rate (L/min) 2 Oxygen Delivery Method Nasal Cannula Weight: 179 lb Body Mass Index (BMI) 26.4 Intake and Output for Last 24 Hours 04/05/19 04/06/19 04/07/19 23:59 23:59 23:59 Intake Total 700 / 700 Balance 700 / 700 General: Alert, Oriented x3, Cooperative, - - Mildly short of breath. HEENT: Atraumatic, PERRLA, EOMI, Normocephalic Oral: Moist Mucosa, No Gingival or Mucosal Lesions/ Ulcerations Neck: Supple, No JVD, Negative Carotid Bruits, Trachea Midline, Thyroid Normal Size and Texture Lungs: No wheeze, Diminished, Rales, Rhonchi, Short of Breath, - - Decreased breath sounds at the bases, bilateral crackles up to mid zones, scattered rhonchi. Cardiovascular: Regular rate, Regular Rhythm, Normal S1, Normal S2, PMI Normal, Bradycardic Abdomen: Bowel Sounds Present, Soft, Non Tender, Non-Distended, No Hepato- splenomegaly Extremities: No clubbing, No cyanosis, Edema - ++ Edema. Skin: No rashes, No breakdown Lymphatic: No Cervical, Supraclavicular, or Inguinal Adenopathy Neurological: Cranial nerves II-XII grossly intact, Motor Exam 5/5 strength throughout Psych/Mental Status: Normal Affect, Appropriate, Alert and oriented to time, place, person, mood and affect Laboratory Results 04/07/19 10:16: WBC 7.6, RBC 3.67 L, Hgb 9.9 L, Hct 32.0 L, MCV 87.2, MCH 27.0, MCHC 30.9 L, RDW Std Deviation 58.8 H, RDW Coeff of Lisa 18.6 H, Plt Count 200, MPV 10.5, Immature Gran % (Auto) 0.400, Neut % (Auto) 74.2 H, Lymph % (Auto) 13.4 L, [place] % (Auto) 9.2, Eos % (Auto) 2.1, Baso % (Auto) 0.7, Absolute Neuts (auto) 5.6, Absolute Lymphs (auto) 1.02, Nucleated RBC % 0 04/07/19 10:16: Sodium 144, Potassium 4.0, Chloride 112 H, Carbon Dioxide 25.0, Anion Gap 7, BUN 41 H, Creatinine 1.94 H, Estim Creat Clear Calc 33.91, Est GFR (MDRD) Af Amer 44 L, Est GFR (MDRD) Non-Af 36 L, BUN/Creatinine Ratio 21.1 H, Glucose 115 H, Calcium 9.1, Troponin I 0.053 H 04/07/19 10:16: B-Natriuretic Peptide 3364.6 H Clinical Impression(s) from Imaging Studies Chest CTA 04/07/19 10:04 IMPRESSION: No evidence of pulmonary embolism. Bilateral pleural effusions right greater than left with underlying bibasilar atelectasis and/or infiltration superimposed on chronic interstitial scarring. Electronically Signed: Boy Bocanegra, at 11:55 EST , Service support , Current Medications Sodium Chloride () 1,000 mls @ 15 mls/hr IV .Q48H TRINI Assessment/Plan This is a 73 years old male patient was referred to the ED by pulmonology for 1 month history of shortness of breath and hypoxia, found to have acute on chronic diastolic CHF with bilateral pleural effusion as well as abnormal cardiac enzymes. #1 acute on chronic diastolic CHF: Based on chest x-ray findings, symptoms, elevated BNP. EKG reviewed as below. Troponin is borderline elevated. Patient denied any chest pain. He had 2D echocardiogram back on June, that revealed ejection fraction of 60%, mild aortic stenosis, RVSP of 39. CTA chest showed no PE or dissection, revealed bilateral pleural effusion, more on the right side. Plan: Admit to PCU, cardiac monitoring, serial cardiac enzymes, 2D echocardiogram, IV Lasix for diuresis, input output chart, albuterol PRN, fluid restriction, repeat CBC and BMP tomorrow morning, continue Coreg and hydralazine, PT OT evaluation and treatment. #2 bilateral pleural effusion: Likely due to transudative effusion secondary to CHF. CTA chest reviewed. Plan for IV diuresis, O2 by nasal cannula as above, repeat AP and lateral chest x-ray tomorrow morning. If the pleural effusion is very large, patient may need thoracentesis. #3 hypoxia: Secondary to #1 and 2. In the past, patient was suspected to have COPD but he had lung function test and COPD ruled out. He never been oxygen at home. Plan: IV diuresis, albuterol PRN, incentive spirometer, repeat chest x- ray tomorrow morning. #4 CAD status post CABG: EKG reviewed as above, troponin slight elevated. Patient is chest pain-free. Plan as above, continue aspirin, statins, Coreg and hydralazine. #5 stage III chronic kidney disease: Baseline creatinine has been around 1.5 to 1.9 mg/dL. Admission creatinine 1.94, stable at baseline. Creatinine may go up with IV Lasix. Plan to do BMP tomorrow morning. #6 paroxysmal atrial fibrillation: At this time, he is in sinus bradycardia, rate is stable, blood pressure stable. Continue Coreg for rate control, he is not on anticoagulation. #7 hypertension: Blood pressure stable, continue Norvasc, Coreg and hydralazine. #8 peripheral vascular disease: Status post bilateral iliac artery stents, stable, continue aspirin and statins. #9 hyperlipidemia: Continue statins. #10 DVT prophylaxis: Subcu heparin. This note was generated with [employer] dictation software. It may contain incorrect words, spelling, and punctuation that were not noted in checking the note before signing. Code Visit Inpatient E&M: 55520 Init Hosp L3
--- NOTE | 2019-04-07 12:53 | NURSING ---
PCU HYPOXIA, CHF, PE ASHELFAH
--- NOTE | 2019-04-07 13:02 | ECHOD_ITS ---
Reason For Study: CHF Procedure This was a 2D Doppler, Color Flow transthoracic echocardiogram. The study was technically difficult. Exam performed portable in patient room. Left Ventricle Normal LV size. Mild concentric left ventricular hypertrophy. Left ventricular systolic function is normal. The estimated ejection fraction is 55 %. No regional wall motion abnormalities noted. Right Ventricle Normal RV size. Normal systolic function. Atria The left atrium is mildly enlarged. Normal right atrium. No doppler evidence for ASD. Mitral Valve There is mild mitral annular calcification. Mild diffuse mitral valve thickening. Mild (1+) mitral valve insufficiency. Tricuspid Valve Normal tricuspid valve. Mild tricuspid valve insufficiency. Right ventricular systolic pressure estimated to be 43 mmHg. Aortic Valve Trisinus/trileaflet aortic valve. Mild diffuse aortic valve calcification. Mild aortic stenosis. Pulmonic Valve The pulmonic valve is not well visualized. Mild (1+) pulmonic valve insufficiency. Great Vessels Normal sized aortic root. Calcified aortic root. Pericardium/Pleural No pericardial effusion. MMode/2D Measurements & Calculations LVIDd: 5.3 cm IVSd: 1.3 cm LVOT diam: 2.0 cm LVIDs: 3.8 cm LVPWd: 1.3 cm LVOT area: 3.1 cm2 RVDd: 4.0 cm FS: 27.9 % Ao root diam: 2.9 cm LAV(MOD-bp): 100.8 ml LA A4 area: 26.5 cm2 LAV(MOD-bp) Indexed: 51.2 ml/m2 LAV(MOD-sp2): 97.4 ml LAV(MOD-sp4): 95.0 ml LA dimension(2D): 5.5 cm RA A4 area: 23.4 cm2 Time Measurements MV dec time: 0.18 sec Doppler Measurements & Calculations MV E max fei: 125.4 cm/sec Lat Peak E' Fei: 3.5 cm/sec Med Peak E' Fei: 4.7 cm/sec MV A max fei: 64.2 cm/sec E/E' lat: 35.3 E/E' med: 26.6 MV E/A: 2.0 Ao V2 max: 177.9 cm/sec LV V1 max: 114.4 cm/sec SV(LVOT): 87.8 ml Ao max P.7 mmHg LV V1 max P.2 mmHg Ao V2 mean: 118.6 cm/sec LV V1 mean P.5 mmHg Ao mean P.2 mmHg LV V1 mean: 74.6 cm/sec Ao V2 VTI: 45.6 cm LV V1 VTI: 28.5 cm JULISA(I,D): 1.9 cm2 JULISA(V,D): 2.0 cm2 PA V2 max: 115.5 cm/sec TR max fei: 288.3 cm/sec TR max P.4 mmHg Interpretation Summary The study was technically difficult. Left ventricular systolic function is normal. The estimated ejection fraction is 55 %. Mild concentric left ventricular hypertrophy. The left atrium is mildly enlarged. There is mild mitral annular calcification. Mild diffuse mitral valve thickening. Mild (1+) mitral valve insufficiency. Mild tricuspid valve insufficiency. Mild diffuse aortic valve calcification. Mild aortic stenosis. Mild (1+) pulmonic valve insufficiency. Calcified aortic root. Right ventricular systolic pressure estimated to be 43 mmHg. Transmitral diastolic flow velocities suggest diastolic dysfunction (pseudonormal pattern). Ordering Physician: Vlad Javier Referring Physician: Jeremiah Mendoza Performed By: Bernadette Greenwood, IMAN, RVT
[2019-04-07 13:41] LABS: International Normalized Ratio 1.2; Prothrombin Time (Protime)PT. 15.4 SECONDS (11.7-14.9)
[2019-04-07] MEDS: hydrALAZINE 50 MG Tablet PO ×2 (14:06→21:58)
[2019-04-07] MEDS: Doxazosin 4 MG Tablet 16 MG PO (21:57)
[2019-04-07] MEDS: Heparin Injection (Vial) 5,000 UNIT/ML VIAL 5000 UNIT SC (21:57)
[2019-04-07] MEDS: Carvedilol 25 MG Tablet 50 MG PO (21:57)
[2019-04-07] MEDS: Ezetimibe 10 MG Tablet PO (21:57)
[2019-04-07] MEDS: 0.9% Saline Lock 10 ML Syringe IV (21:58)
[2019-04-07] MEDS: Atorvastatin Calcium 80 MG Tablet PO (21:58)
[2019-04-08] VITALS (16 sets, daily range): BP systolic 150–163; BP diastolic 41–52; PULSE 56–68; RESP 17–20; TEMP 36.4–36.8; O2SAT 85–97
[2019-04-08] MEDS: 0.9% Saline Lock 10 ML Syringe IV ×2 (05:23→17:22)
[2019-04-08] MEDS: hydrALAZINE 50 MG Tablet PO ×3 (05:23→21:38)
[2019-04-08] MEDS: Furosemide 40 MG/4 ML Vial IV ×2 (05:23→17:22)
--- NOTE | 2019-04-08 05:55 | RAD_ITS ---
STUDY: X-RAY CHEST REASON FOR EXAM: Male, 73 years old. SOB, PLEURAL EFFUSION. PT ST IMPROVEMENT. HX CABG X 4 TECHNIQUE: PA and lateral views of the chest. COMPARISON: Comparison is made with prior examination dated June 27, 2018. FINDINGS: EKG electrodes are seen. There is evidence of diffuse increased interstitial markings in both lungs. A reticular nodular pattern is seen. This is worse in the lower lobes. This is suggestive of a mild degree of CHF. Blunting of both costophrenic angles. Follow-up is recommended. Sternal cerclage wires and vascular clips are present from a prior sternotomy and coronary artery bypass graft procedure (CABG). Mild cardiomegaly. Normal mediastinum and memo. Normal visualized pulmonary arteries. There is atherosclerotic calcification of the aortic arch with tortuosity. There are diffuse degenerative changes of the visualized thoracic spine. There is degenerative osteoarthritis of the bilateral shoulders. There is no demonstrated abnormality of the visualized soft tissue structures of the upper abdomen. RAD/Chest PA and Lateral IMPRESSION: Findings suggestive of CHF. Follow-up is recommended. Electronically Signed: Boy Bocanegra, at 12:14 EST , Service support ,
[2019-04-08 06:16] LABS: Absolute Lymphocyte Count 1.29 X10^3/uL (0.83-4.51); Absolute Neutrophil Count 6.1 X10^3/uL (2.0-7.7); Basophil% 1.2 % (0-1); Eosinophil# 0.29 X10^3/uL; Eosinophils% 3.4 % (0-5); Hemoglobin 9.3 g/dL (13.0-16.5); Lymphocyte # 1.29 X10^3/ul (4.0); Lymphocyte % 15.1 % (19-41); Mean Corpuscular Hgb 26.3 pg (27.0-32.0); Mean Corpuscular Volume 87.8 fL (80-94); Mean Platelet Vol. 10.4 fl (6.2-12.0); Monocyte# 0.77 X10^3/uL; NRBC Flagged by Analyzer 0 % (0-5); Neutrophil # 6.07 X10^3/uL (2.7-7.7); Neutrophil % 70.7 % (47-70); Platelet Count 189 K/mm3 (150-450); RBC Distribution Width CV 18.5 % (11.6-14.6); RBC Distribution Width SD 58.9 fl (35.1-43.9); Red Blood Count 3.53 M/mm3 (4.6-6.2); White Blood Count 8.6 K/mm3 (4.4-11.0)
[2019-04-08 06:53] LABS: Anion Gap 7 (5-15); BUN 45 mg/dL (7-18); BUN/Creat Ratio 20.7 RATIO (10-20); Calcium,Total 8.8 mg/dL (8.5-10.1); Chloride 111 mmol/L (98-107); Creatinine, Serum 2.17 mg/dL (0.70-1.30); EST Glomerular Filtration Rate 32 mL/min (>60); Est Glom Filt Rate - Afr Amer 38 mL/min (>60); Estimated Creatinine Clearance 29.33 ml/min; Glucose 94 mg/dL (74-106); Potassium 3.9 mmol/L (3.5-5.1); Sodium Level 143 mmol/L (136-145)
--- NOTE | 2019-04-08 08:18 | PN_ITS ---
Subjective: Chief complaint: Follow-up after admission for acute on chronic diastolic CHF and hypoxia. Patient seen and examined. No acute events overnight. Morning, he mentioned that his breathing is better, leg edema improved. Denies any chest pain. Remainder oxygen at 2 L, blood pressure slightly related, other vital signs are stable. - Physical Exam Vitals/I&O's: Vital Signs Temp Pulse Resp BP Pulse Ox 98.1 F 59 L 18 153/51 H 96 04/08/19 05:21 04/08/19 06:51 04/08/19 05:21 04/08/19 05:23 04/08/19 05:21 Oxygen Flow Rate (L/min) 2 Oxygen Delivery Method Nasal Cannula Weight: 176 lb 2.389 oz Body Mass Index (BMI) 26.7 Intake and Output for Last 24 Hours 04/06/19 04/07/19 04/08/19 23:59 23:59 23:59 Intake Total 1140 / 1140 100 / 100 Output Total 1900 / 1900 1050 / 1050 Balance -760 / -760 -950 / -950 General: Alert, Oriented x3, Cooperative, No apparent distress HEENT: Atraumatic, PERRLA, EOMI, Normocephalic Oral: Moist Mucosa, No Gingival or Mucosal Lesions/ Ulcerations Neck: Supple, No JVD, Negative Carotid Bruits, Trachea Midline, Thyroid Normal Size and Texture Lungs: No wheeze, Diminished, Rales, Rhonchi, - - Decreased breath sounds at the bases, bilateral basilar faint crackles more on the right base, rhonchi. Cardiovascular: Regular rate, Regular Rhythm, Normal S1, Normal S2, PMI Normal Abdomen: Bowel Sounds Present, Soft, Non Tender, Non-Distended, No Hepato- splenomegaly Extremities: No clubbing, No cyanosis, Edema - Trace edema. Skin: No rashes, No breakdown Lymphatic: No Cervical, Supraclavicular, or Inguinal Adenopathy Neurological: Cranial nerves II-XII grossly intact, Neuro grossly intact Psych/Mental Status: Normal Affect, Appropriate, Alert and oriented to time, place, person, mood and affect Laboratory Results 04/07/19 10:16: WBC 7.6, RBC 3.67 L, Hgb 9.9 L, Hct 32.0 L, MCV 87.2, MCH 27.0, MCHC 30.9 L, RDW Std Deviation 58.8 H, RDW Coeff of Lisa 18.6 H, Plt Count 200, MPV 10.5, Immature Gran % (Auto) 0.400, Neut % (Auto) 74.2 H, Lymph % (Auto) 13.4 L, [place] % (Auto) 9.2, Eos % (Auto) 2.1, Baso % (Auto) 0.7, Absolute Neuts (auto) 5.6, Absolute Lymphs (auto) 1.02, Nucleated RBC % 0 04/07/19 10:16: Sodium 144, Potassium 4.0, Chloride 112 H, Carbon Dioxide 25.0, Anion Gap 7, BUN 41 H, Creatinine 1.94 H, Estim Creat Clear Calc 33.91, Est GFR (MDRD) Af Amer 44 L, Est GFR (MDRD) Non-Af 36 L, BUN/Creatinine Ratio 21.1 H, Glucose 115 H, Calcium 9.1, Troponin I 0.053 H 04/07/19 10:16: B-Natriuretic Peptide 3364.6 H 04/07/19 13:20: PT 15.4 H, INR 1.2 04/07/19 13:20: Troponin I 0.070 H 04/07/19 15:55: Troponin I 0.075 H 04/08/19 05:55: WBC 8.6, RBC 3.53 L, Hgb 9.3 L, Hct 31.0 L, MCV 87.8, MCH 26.3 L , MCHC 30.0 L, RDW Std Deviation 58.9 H, RDW Coeff of Lisa 18.5 H, Plt Count 189, MPV 10.4, Immature Gran % (Auto) 0.600, Neut % (Auto) 70.7 H, Lymph % (Auto) 15.1 L, [place] % (Auto) 9.0, Eos % (Auto) 3.4, Baso % (Auto) 1.2 H, Absolute Neuts (auto) 6.1, Absolute Lymphs (auto) 1.29, Nucleated RBC % 0 04/08/19 05:55: Sodium 143, Potassium 3.9, Chloride 111 H, Carbon Dioxide 25.0, Anion Gap 7, BUN 45 H, Creatinine 2.17 H, Estim Creat Clear Calc 29.33, Est GFR (MDRD) Af Amer 38 L, Est GFR (MDRD) Non-Af 32 L, BUN/Creatinine Ratio 20.7 H, Glucose 94, Calcium 8.8 Current Medications Acetaminophen (Tylenol) 650 mg PO Q6H PRN PRN PRN Reason: Pain Score 1-10/Temp > 100.7 F Albuterol Sulfate (Ventolin Aerosols) 2.5 mg INHALATION Q4H PRN PRN PRN Reason: Shortness of breath, wheezing Amlodipine Besylate (Norvasc) 10 mg PO DAILY [facility] Aspirin (Ecotrin) 81 mg PO DAILY@0800 [facility] Atorvastatin Calcium (Lipitor) 80 mg PO QHS [facility] Last Admin: 04/07/19 21:58 Dose: 80 mg Documented by: Carvedilol (Coreg) 50 mg PO BID [facility] Last Admin: 04/07/19 21:57 Dose: 50 mg Documented by: Doxazosin Mesylate (Cardura) 16 mg PO QHS [facility] Last Admin: 04/07/19 21:57 Dose: 16 mg Documented by: Ezetimibe (Zetia) 10 mg PO QHS [facility] Last Admin: 04/07/19 21:57 Dose: 10 mg Documented by: Ferrous Sulfate (Ferrous Sulfate) 325 mg PO DAILY@1200 [facility] Furosemide (Lasix) 40 mg IV BID@1000,1800 [facility] Heparin Sodium (Porcine) (Heparin Na) 5,000 unit SC Q12 [facility] Last Admin: 04/07/19 21:57 Dose: 5,000 unit Documented by: Hydralazine HCl (Apresoline) 50 mg PO TID [facility] Last Admin: 04/08/19 05:23 Dose: 50 mg Documented by: Ondansetron HCl (Zofran) 4 mg IV Q8H PRN PRN PRN Reason: NAUSEA/VOMITING Pantoprazole Sodium (Protonix) 20 mg PO DAILY [facility] Senna/Docusate Sodium (Senokot-S, Johanna-Colace) 2 tablet PO BID PRN PRN PRN Reason: Constipation Sodium Chloride () 10 - 40 ml IV UD PRN PRN Reason: SALINE FLUSH Last Admin: 04/08/19 05:23 Dose: 10 ml Documented by: Zolpidem Tartrate (Ambien (Generic)) 5 mg PO QHS PRN PRN PRN Reason: INSOMNIA Medical Necessity - Tobacco Use Smoking Status: Former smoker Assessment/Plan This is a 73 years old male patient was referred to the ED by pulmonology for 1 month history of shortness of breath and hypoxia, found to have acute on chronic diastolic CHF with bilateral pleural effusion as well as abnormal cardiac enzymes. #1 acute on chronic diastolic CHF: He is on IV Lasix for diuresis, on Coreg and hydralazine. Symptoms started to improve, less short of breath, remains on 2 L of oxygen. He is diuresing very well. Serum creatinine started to go up. Troponin is borderline elevated likely due to demand ischemia, no indication for more cardiac work-up.. Patient denied any chest pain. 2D echocardiogram revealed ejection fraction 55%, mild aortic stenosis, RVSP 43, other findings reviewed. CTA chest showed no PE or dissection, revealed bilateral pleural effusion, more on the right side. Plan: Decrease IV Lasix to 40 mg IV twice daily because of worsening kidney function, repeat BMP tomorrow morning, wean off oxygen, ambulatory pulse ox on room air tomorrow morning. #2 bilateral pleural effusion: There are small, more on the right side. Chest x-ray from today reviewed, revealed pulmonary vascular congestion bilaterally more in the right side with minimal effusion the left, small effusion on the right. Likely due to transudative effusion secondary to CHF. CTA chest reviewed. Plan as above, no indication for thoracentesis. #3 hypoxia: Secondary to #1 and 2. He is on IV diuresis with Lasix. Symptoms are improving. He never been oxygen at home. Plan as above. #4 CAD status post CABG: EKG reviewed as above, troponin slight elevated probably due to demand ischemia. Patient is chest pain-free. continue aspirin, statins, Coreg and hydralazine. #5 stage III chronic kidney disease: Baseline creatinine has been around 1.5 to 1.9 mg/dL. Admission creatinine 1.94, stable at baseline. On IV Lasix, creatinine came up to 2.1 mg/dL. Plan to cut back on Lasix as above. #6 paroxysmal atrial fibrillation: Remains in sinus rhythm. Continue Coreg for rate control, he is not on anticoagulation. #7 hypertension: Blood pressure slightly elevated this morning, continue Norvasc, Coreg and hydralazine. #8 peripheral vascular disease: Status post bilateral iliac artery stents, stable, continue aspirin and statins. #9 hyperlipidemia: Continue statins. #10 DVT prophylaxis: Subcu heparin. This note was generated with [employer] software. It may contain incorrect words, spelling, and punctuation that were not noted in checking the note before signing. Code Visit Inpatient E&M: 95888 Subs Hosp L2
[2019-04-08] MEDS: Aspirin E.C. 81 MG Tablet PO (08:30)
[2019-04-08] MEDS: Carvedilol 25 MG Tablet 50 MG PO ×2 (08:31→21:37)
[2019-04-08] MEDS: Pantoprazole Sodium 20 MG Tablet PO (08:31)
[2019-04-08] MEDS: amLODIPine 10 MG Tablet PO (08:31)
--- NOTE | 2019-04-08 09:52 | NURSING ---
informed patient of multidisciplinary rounds at 1400 today 04/08. asked if he wanted me to let any family know. pt states that his son will be at work but he has a lady friend that will be here.
--- NOTE | 2019-04-08 11:15 | CASEMGMT ---
RN CM TELEMARKETING SALES REPRESENTATIVE CM to room to meet with patient for initial transition planning/care coordination assessment. RN HAILEY introduced self and role at [facility]. Pt voices understanding and consents to assessment at this time. Pt sitting up in recliner chair in no distress at this time. Pt's significant other of 12 yrs, Rita, sitting next to pt. Pt is A/O at this time and answers all questions appropriately. Care providers, pharmacy, and demographics verified/updated at this time. PCP: Dr Mendoza Specialists: Dr Rogers--pulmonology, Dr Castanon--cardiology, Dr Quinn-central supply supervisor Preferred Pharmacy: [facility] Insurance: MCR, [employer] Prescription Benefit: Yes Living Will/HPOA: Has both LW and Healthcare POA, who is his son Nick Zimmer. LNOK: Son, Nick Zimmer(POA). Also has another son. Significant other of 12 years: Rita Faria Living Arrangements: Lives alone in one-story home. States has to enter his home through the basement and has 12 stairs to go up w/rails. Denies difficulty. Indpendent with ADL's and IADL's. Transportation: Pt states drives self and states no transportation concerns at this time. Rita able to assist with transportation if needed. DME: Denies using any DME and denies needs. States has the following DME: Pt states no need for further DME at this time. HHC/SNF: No history of either, denies needs for therapy or HHC, and no needs identified. Pt wishes to return home and states has no concerns with going home at time of discharge. Pt states does not smoke and has an occasional beer. CM to follow for any discharge planning/needs. Pt voices no further concerns/needs at this time. Advised pt to ask for CM if any further questions/concerns/needs arise. Voices understanding. PLAN: Home Sunny JUNIOR RN, CM
[2019-04-08] MEDS: Ferrous Sulfate 325 MG Tablet PO (13:56)
[2019-04-08] MEDS: Heparin Injection (Vial) 5,000 UNIT/ML VIAL 5000 UNIT SC ×2 (14:07→21:38)
[2019-04-08] MEDS: Atorvastatin Calcium 80 MG Tablet PO (21:37)
[2019-04-08] MEDS: Ezetimibe 10 MG Tablet PO (21:37)
[2019-04-08] MEDS: Doxazosin 4 MG Tablet 16 MG PO (21:37)
[2019-04-09] VITALS (7 sets, daily range): BP systolic 146–154; BP diastolic 51–58; PULSE 57–70; RESP 16; TEMP 36.4–36.7; O2SAT 86–98
[2019-04-09] MEDS: hydrALAZINE 50 MG Tablet PO (05:08)
[2019-04-09 06:02] LABS: Anion Gap 7 (5-15); BUN 51 mg/dL (7-18); BUN/Creat Ratio 23.8 RATIO (10-20); Calcium,Total 8.6 mg/dL (8.5-10.1); Chloride 108 mmol/L (98-107); Creatinine, Serum 2.14 mg/dL (0.70-1.30); EST Glomerular Filtration Rate 32 mL/min (>60); Est Glom Filt Rate - Afr Amer 39 mL/min (>60); Estimated Creatinine Clearance 29.74 ml/min; Glucose 82 mg/dL (74-106); Potassium 3.7 mmol/L (3.5-5.1); Sodium Level 142 mmol/L (136-145)
[2019-04-09] MEDS: Carvedilol 25 MG Tablet 50 MG PO (08:10)
[2019-04-09] MEDS: amLODIPine 10 MG Tablet PO (08:10)
[2019-04-09] MEDS: Furosemide 40 MG/4 ML Vial IV (08:10)
[2019-04-09] MEDS: Pantoprazole Sodium 20 MG Tablet PO (08:10)
[2019-04-09] MEDS: Aspirin E.C. 81 MG Tablet PO (08:10)
[2019-04-09] MEDS: Heparin Injection (Vial) 5,000 UNIT/ML VIAL 5000 UNIT SC (08:11)
[2019-04-09] MEDS: 0.9% Saline Lock 10 ML Syringe IV (08:11)
--- NOTE | 2019-04-09 08:11 | DCINST_ITS ---
- Discharge Diagnoses Current Active Problems: Current Active and Chronic Problems (Last Updated 04/07/19 @ 12:17 by Vlad Javier MD) Stage III chronic kidney disease (Chronic) You will use the following diet at home:: Cardiac Your food should be the consistency of: Regular Discharge Activity: Return to Normal Activity Weight Bearing Status: Weight bearing as tolerated Call your doctor if you observe: Fever of 101 or Higher, Shortness of breath, Dizziness, Fainting spells, Swelling in the ankles, Chest pain, Increased palpitations (irregular heartbeat), Uncontrolled pain Instructions: Using Oxygen at Home, Heart Failure, Taking Medication to Control Heart Failure Allergies/Adverse Reactions: Allergies No Known Allergies Allergy (Verified 04/07/19 09:46) Medications to take at Discharge Amlodipine [Norvasc] 10 mg PO DAILY 05/15/16 Aspirin [Aspirin EC] 81 mg PO DAILY 05/15/16 Atorvastatin Calcium [Lipitor] 80 mg PO QHS 05/15/16 Doxazosin Mesylate [Cardura] 16 mg PO QHS 05/15/16 Ezetimibe [Zetia] 10 mg PO QHS 05/15/16 Multivitamin [Daily Multiple Vitamin] 1 ea PO DAILY 05/15/16 Nitroglycerin [Nitrostat] 0.4 mg SL PRN PRN 05/15/16 Omeprazole 20 mg PO DAILY 06/27/18 hydrALAZINE [Apresoline] 50 mg PO TID 06/27/18 Albuterol Inhaler [Ventolin Hfa] 1 - 2 puff INHALATION Q4H PRN PRN #1 inhaler 06/29/18 fluticasone propionate 50 mcg/actuation nasal spray,suspension 2 spray INTRANASAL DAILY #16 g 10/02/18 ferrous sulfate 325 mg (65 mg iron) tablet 325 mg PO DAILY 01/16/19 carvedilol 25 mg tablet 50 mg PO BID #180 tab 03/03/19 Ipratropium [place] 1 spray NASAL DAILY 04/07/19 Furosemide [Lasix] 40 mg PO BID #90 tab 04/09/19 The following prescriptions were given: Furosemide [Lasix] 40 mg PO BID #90 tab Transmission Status: Pending to [id number] Primary Care Physician: Jeremiah Mendoza MD [Primary Care Provider] - Please follow up with your Primary Care Physician in: 1 week. Test Results: Test results from this visit will be discussed in further detail at your follow- up appointment, if applicable. Please Follow Up With: Jeremiah Mendoza MD
--- NOTE | 2019-04-09 10:06 | CASEMGMT ---
Addendum entered by Farhad Omalley 04/09/19 11:18: Face to face/documentation stating need for oxygen faxed to [facility] at this time. Oxygen has been delivered to room. Original Note: JEROD HART NOTE: Pt qualifies for Home oxygen. JEROD HART to room to talk with and he was made aware. List of local DME companies given to pt and he chose [employer]. Order for O2 obtained from Dr Javier and faxed to [facility] at this time. Call placed to Lisa @ [facility] and she was made aware pt is discharging today and is awaiting Oxygen delivery to his room. Sunny JUNIOR RN, CM
--- NOTE | 2019-04-09 11:02 | PCM.DC.SUM ---
Discharge Date and Diagnosis Date of Admission: 04/07/19 Date of Discharge: 04/09/19 - Primary Discharge Diagnosis #1 acute on chronic diastolic CHF. #2 acute hypoxic respiratory failure requiring home oxygen. #3 small bilateral pleural effusion, likely transudative secondary to acute CHF. - Secondary Discharge Diagnosis Chronic Problems (Last Updated 04/07/19 @ 12:17 by Vlad Javier MD) Stage III chronic kidney disease (Chronic) PND (post-nasal drip) (Chronic) Atherosclerosis of coronary artery of [place] heart without angina pectoris (Chronic) CABG x 4: Sequential BALES-LAD an D1, SVG-OM1, SVG-RPDA 08/14/12 H/O coronary artery bypass surgery (Chronic 08/14/12) CABG x 4: Sequential BALES-LAD an D1, SVG-OM1, SVG-RPDA 08/14/12 Chronic diastolic (congestive) heart failure (Chronic) Bilateral carotid artery stenosis (Chronic) Right CEA 2016, Left Carotid Stented 2003 Transient ischemic attack (Chronic) Paroxysmal atrial flutter (Chronic) Essential (primary) hypertension (Chronic) Hyperlipidemia (Chronic) Peripheral vascular occlusive disease (Chronic) Bilateral iliac stents, left renal artery stent Hospital Course and Treatment Imaging Results: Clinical Impression(s) from Imaging Studies Chest CTA 04/07/19 10:04 IMPRESSION: No evidence of pulmonary embolism. Bilateral pleural effusions right greater than left with underlying bibasilar atelectasis and/or infiltration superimposed on chronic interstitial scarring. Electronically Signed: Boy Bocanegra, at 11:55 EST , Service support , Chest X-Ray 04/08/19 05:55 IMPRESSION: Findings suggestive of CHF. Follow-up is recommended. Electronically Signed: Boy Bocanegra, at 12:14 EST , Service support , Operations: None Procedures: 2-D Echocardiogram, EKG Summary of Care Provided: Patient seen and examined on the day of discharge and appeared to be stable to be discharged home. Shortness of breath has been improving every day as well as leg edema. He has no more leg edema. He remained on oxygen at 2 L. Ambulatory pulse ox performed today and his pulse ox came down to 86% on room air with ambulation and he did qualify for home oxygen. Other vital signs are stable. The patient is a 73 year old M patient presented to the emergency room after he was sent by pulmonology for shortness of breath and hypoxia and he was found to have acute on chronic diastolic CHF complicated by acute hypoxic respiratory failure as well as abnormal cardiac enzymes. Patient had CTA chest done in the ED that revealed bilateral pleural effusion more on the right side without evidence of PE or dissection. His BNP was 3364 and troponin was borderline elevated. Patient denied any chest pain throughout this admission. Patient was treated with IV Lasix for diuresis, oxygen remains on Coreg and hydralazine. He was not on ELEAZAR inhibitor because of chronic kidney disease. 2D echocardiogram revealed ejection fraction 55%, mild aortic stenosis and RVSP of 43. His EKG revealed no evidence of acute segment changes. Chest x-ray revealed very small pleural effusion bilaterally which is more on the right side. With IV diuresis, patient symptoms improved, leg edema resolved and patient remained on oxygen. Ambulatory walking pulse oximetry performed and his pulse ox dropped down to 86% on room air with ambulation. Patient did qualify for home oxygen as he has been ambulating at home and doing his daily activities with no restrictions. Patient does have history of stage III chronic kidney disease with baseline creatinine of 1.5-1.9. With IV Lasix, creatinine came up to 2.1 upon discharge. Patient discharged home in a stable condition, discharged on Lasix 40 mg p.o. twice daily, discharged on oxygen at 2 L, continued on his other previous home medications without any changes, recommended follow-up with PCP in 1 week. - Physical Exam Vitals/I&O's: Vital Signs Temp Pulse Resp BP Pulse Ox 98.1 F 57 L 16 146/51 H 93 04/09/19 05:06 04/09/19 06:53 04/09/19 05:06 04/09/19 05:08 04/09/19 08:47 Oxygen Flow Rate (L/min) [ 2 AMBULATION with Oxygen] Oxygen Flow Rate (L/min) 3.5 Oxygen Delivery Method Nasal Cannula Weight: 166 lb 0.129 oz Body Mass Index (BMI) 26.7 Intake and Output for Last 24 Hours 04/07/19 04/08/19 04/09/19 23:59 23:59 23:59 Intake Total 1140 / 1140 420 / 420 200 / 200 Output Total 1900 / 1900 3950 / 3950 550 / 550 Balance -760 / -760 -3530 / -3530 -350 / -350 General: Alert, Oriented x3, Cooperative, No apparent distress HEENT: PERRLA, EOMI, Normocephalic Oral: Moist Mucosa, No Gingival or Mucosal Lesions/ Ulcerations Neck: Supple, No JVD, Negative Carotid Bruits, Trachea Midline, Thyroid Normal Size and Texture Lungs: Clear to auscultation, Normal air movement, No rhonchi, No wheeze, No rales, Diminished Cardiovascular: Regular rate, Regular Rhythm, Normal S1, Normal S2, PMI Normal Abdomen: Bowel Sounds Present, Soft, Non Tender, Non-Distended, No Hepato-splenomegaly Extremities: No clubbing, No cyanosis, No edema Skin: No rashes, No breakdown Lymphatic: No Cervical, Supraclavicular, or Inguinal Adenopathy Neurological: Cranial nerves II-XII grossly intact, Motor Exam 5/5 strength throughout Psych/Mental Status: Normal Affect, Appropriate Laboratory Results 04/09/19 04:45: Sodium 142, Potassium 3.7, Chloride 108 H, Carbon Dioxide 27.0, Anion Gap 7, BUN 51 H, Creatinine 2.14 H, Estim Creat Clear Calc 29.74, Est GFR (MDRD) Af Amer 39 L, Est GFR (MDRD) Non-Af 32 L, BUN/Creatinine Ratio 23.8 H, Glucose 82, Calcium 8.6 Current Medications Acetaminophen (Tylenol) 650 mg PO Q6H PRN PRN PRN Reason: Pain Score 1-10/Temp > 100.7 F Albuterol Sulfate (Ventolin Aerosols) 2.5 mg INHALATION Q4H PRN PRN PRN Reason: Shortness of breath, wheezing Amlodipine Besylate (Norvasc) 10 mg PO DAILY REPLACED BY [facility] Last Admin: 04/09/19 08:10 Dose: 10 mg Documented by: Aspirin (Ecotrin) 81 mg PO DAILY@0800 REPLACED BY [facility] Last Admin: 04/09/19 08:10 Dose: 81 mg Documented by: Atorvastatin Calcium (Lipitor) 80 mg PO QHS REPLACED BY [facility] Last Admin: 04/08/19 21:37 Dose: 80 mg Documented by: Carvedilol (Coreg) 50 mg PO BID REPLACED BY [facility] Last Admin: 04/09/19 08:10 Dose: 50 mg Documented by: Doxazosin Mesylate (Cardura) 16 mg PO QHS REPLACED BY [facility] Last Admin: 04/08/19 21:37 Dose: 16 mg Documented by: Ezetimibe (Zetia) 10 mg PO QHS REPLACED BY [facility] Last Admin: 04/08/19 21:37 Dose: 10 mg Documented by: Ferrous Sulfate (Ferrous Sulfate) 325 mg PO DAILY@1200 REPLACED BY [facility] Last Admin: 04/08/19 13:56 Dose: 325 mg Documented by: Furosemide (Lasix) 40 mg IV BID@1000,1800 REPLACED BY [facility] Last Admin: 04/09/19 08:10 Dose: 40 mg Documented by: Heparin Sodium (Porcine) (Heparin Na) 5,000 unit SC Q12 REPLACED BY [facility] Last Admin: 04/09/19 08:11 Dose: 5,000 unit Documented by: Hydralazine HCl (Apresoline) 50 mg PO TID REPLACED BY [facility] Last Admin: 04/09/19 05:08 Dose: 50 mg Documented by: Ondansetron HCl (Zofran) 4 mg IV Q8H PRN PRN PRN Reason: NAUSEA/VOMITING Pantoprazole Sodium (Protonix) 20 mg PO DAILY REPLACED BY [facility] Last Admin: 04/09/19 08:10 Dose: 20 mg Documented by: Senna/Docusate Sodium (Senokot-S, Johanna-Colace) 2 tablet PO BID PRN PRN PRN Reason: Constipation Sodium Chloride () 10 - 40 ml IV UD PRN PRN Reason: SALINE FLUSH Last Admin: 04/09/19 08:11 Dose: 10 ml Documented by: Zolpidem Tartrate (Ambien (Generic)) 5 mg PO QHS PRN PRN PRN Reason: INSOMNIA Discharge Activity: Return to Normal Activity Weight Bearing Status: Weight bearing as tolerated Call your doctor if you observe: Fever of 101 or Higher, Shortness of breath, Dizziness, Fainting spells, Swelling in the ankles, Chest pain, Increased palpitations (irregular heartbeat), Uncontrolled pain Home Medications: Medications to take at Discharge Amlodipine [Norvasc] 10 mg PO DAILY 05/15/16 Aspirin [Aspirin EC] 81 mg PO DAILY 05/15/16 Atorvastatin Calcium [Lipitor] 80 mg PO QHS 05/15/16 Doxazosin Mesylate [Cardura] 16 mg PO QHS 05/15/16 Ezetimibe [Zetia] 10 mg PO QHS 05/15/16 Multivitamin [Daily Multiple Vitamin] 1 ea PO DAILY 05/15/16 Nitroglycerin [Nitrostat] 0.4 mg SL PRN PRN 05/15/16 Omeprazole 20 mg PO DAILY 06/27/18 hydrALAZINE [Apresoline] 50 mg PO TID 06/27/18 Albuterol Inhaler [Ventolin Hfa] 1 - 2 puff INHALATION Q4H PRN PRN #1 inhaler 06/29/18 fluticasone propionate 50 mcg/actuation nasal spray,suspension 2 spray INTRANASAL DAILY #16 g 10/02/18 ferrous sulfate 325 mg (65 mg iron) tablet 325 mg PO DAILY 01/16/19 carvedilol 25 mg tablet 50 mg PO BID #180 tab 03/03/19 Ipratropium [place] 1 spray NASAL DAILY 04/07/19 Furosemide [Lasix] 40 mg PO BID #90 tab 04/09/19 Following Prescrptions Were Given to Patient: Furosemide [Lasix] 40 mg PO BID #90 tab Transmission Status: Received by [id number] Primary Care Physician: Jeremiah Mendoza MD [Primary Care Provider] - Please follow up with your Primary Care Physician in: 1 week. Please Follow Up With: Jeremiah Mendoza MD Please Follow Up With: Aviva Hilario, SUPERVISOR PLASTERING-C Please Follow Up With: Marcie Ball PA Patient Instructions: Taking Medication to Control Heart Failure, Heart Failure, Using Oxygen at Home Disposition: Home Minutes spent on discharge:: 32 Patient Condition:: Stable Medical Necessity - Tobacco Use Smoking Status: Former smoker Meaningful Use Info Meaningful Use Diagnoses (Choose all that apply): CHF - CHF ELEAZAR/ARB ordered at discharge?: No Reason ELEAZAR/ARB not ordered?: Worsening renal disease Documented LVEF (%): 55 Code Visit Inpatient E&M: 49702 Disch Hosp
--- NOTE | 2019-04-09 11:18 | PHA.DC.MC ---
Pharmacy Service has performed discharge medication reconciliation and counseling for this patient. The patient's discharge medication list was reviewed for discrepancies and discrepancies were resolved. No new medications for patient. Reviewed change in Lasix dosing from once daily to twice daily. The patient was able to verbally demonstrate an understanding of their discharge medications. Home Medications Amlodipine [Norvasc] 10 mg PO DAILY 05/15/16 Aspirin [Aspirin EC] 81 mg PO DAILY 05/15/16 Atorvastatin Calcium [Lipitor] 80 mg PO QHS 05/15/16 Doxazosin Mesylate [Cardura] 16 mg PO QHS 05/15/16 Ezetimibe [Zetia] 10 mg PO QHS 05/15/16 Multivitamin [Daily Multiple Vitamin] 1 ea PO DAILY 05/15/16 Nitroglycerin [Nitrostat] 0.4 mg SL PRN PRN 05/15/16 Omeprazole 20 mg PO DAILY 06/27/18 hydrALAZINE [Apresoline] 50 mg PO TID 06/27/18 Albuterol Inhaler [Ventolin Hfa] 1 - 2 puff INHALATION Q4H PRN PRN #1 inhaler 06/29/18 fluticasone propionate 50 mcg/actuation nasal spray,suspension 2 spray INTRANASAL DAILY #16 g 10/02/18 ferrous sulfate 325 mg (65 mg iron) tablet 325 mg PO DAILY 01/16/19 carvedilol 25 mg tablet 50 mg PO BID #180 tab 03/03/19 Ipratropium [place] 1 spray NASAL DAILY 04/07/19 Furosemide [Lasix] 40 mg PO BID #90 tab 04/09/19
--- NOTE | 2019-04-10 12:11 | CASEMGMT ---
JEROD HART Discharge Follow-Up Phone Call. Rena: Christine Strata: 4 Discharge Date: 04/09/19 Adm Dx: Acute on Chronic CHF, Abnormal Cardiac Enzymes, Hypoxia. Call to pt to inquire about how he has been doing since being discharged from the hospital. Pt stated real good. He states his breathing has not been too bad and states the oxygen was delivered to his home yesterday. He states he checks his oxygen level and that his readings have been in the upper 80's to 90's with the Oxygen on. He denies having any questions about the discharge instructions, medications, or appts. JEROD HART thanked pt for choosing [facility]. Sunny JUNIOR RN, CM
== END 2019-04-09 11:49 | disposition home or self-care (01) | DRG 291 ==
LOC: ED 11:03 → PCU 12:22
PROVIDERS: Admitting Provider Hospitalist; Emergency Provider Emergency Medicine; PCP Family Medicine; Visit Provider Hospitalist
DX: I50.33 Acute on chronic diastolic (congestive) heart failure (principal); J96.01 Acute respiratory failure with hypoxia; I13.0 Hypertensive heart and chronic kidney disease with heart failure and stage 1 through stage 4 chronic kidney disease, or unspecified chronic kidney disease; I48.92 Unspecified atrial flutter; Z99.81 Dependence on supplemental oxygen; N18.3 Chronic kidney disease, stage 3 (moderate); I73.9 Peripheral vascular disease, unspecified; I25.10 Atherosclerotic heart disease of native coronary artery without angina pectoris; Z95.1 Presence of aortocoronary bypass graft; I65.23 Occlusion and stenosis of bilateral carotid arteries; Z86.73 Personal history of transient ischemic attack (TIA), and cerebral infarction without residual deficits; D63.1 Anemia in chronic kidney disease; M19.90 Unspecified osteoarthritis, unspecified site; K21.9 Gastro-esophageal reflux disease without esophagitis; Z79.82 Long term (current) use of aspirin; Z79.899 Other long term (current) drug therapy; Z87.891 Personal history of nicotine dependence; E78.5 Hyperlipidemia, unspecified; I48.0 Paroxysmal atrial fibrillation
CPT/HCPCS: 36415; 71046; 71275; 80048; 83880; 84484; 85025; 85610; 93005; 93306; 94667; 94668; 97162; 97165; 99251; 99283; J7030; Q9957; Q9967; A4216; G0463; J1940

== ENCOUNTER → 2019-05-19 | Outpatient (CLI) | payer MEDICARE, OTHER, SELFPAY ==
[2019-05-19 09:42] VITALS: BMI 26.7
[2019-05-19 11:00] LABS: BNP,B-Type NATRIURETIC PEPTIDE 1836.9 pg/mL (0-100)
[2019-05-19 11:08] LABS: Anion Gap 8 (5-15); BUN 49 mg/dL (7-18); BUN/Creat Ratio 22.7 RATIO (10-20); Calcium,Total 8.9 mg/dL (8.5-10.1); Chloride 102 mmol/L (98-107); Creatinine, Serum 2.16 mg/dL (0.70-1.30); EST Glomerular Filtration Rate 32 mL/min (>60); Est Glom Filt Rate - Afr Amer 39 mL/min (>60); Glucose 97 mg/dL (74-106); Potassium 3.8 mmol/L (3.5-5.1); Rheumatoid Factor < 10.0 IU/mL (<15); Sodium Level 137 mmol/L (136-145)
[2019-05-21 03:06] LABS: Cytoplasmic Ab (C-ANCA) <1:20 titer (Neg:<1:20)
[2019-05-21 11:29] LABS: Perinuclear Ab (P-ANCA) <1:20 titer (Neg:<1:20)
[2019-05-21 11:30] LABS: CCP IgG Antibodies 10 units (0-19)
== END | disposition home or self-care (01) ==
LOC: PAVLAB 10:16
PROVIDERS: PCP Family Medicine; Referring Provider Nurse Practitioner Acute Care; Visit Provider Nurse Practitioner Acute Care
DX: I50.32 Chronic diastolic (congestive) heart failure (principal); R06.02 Shortness of breath
CPT/HCPCS: 36415; 80048; 83880; 86200; 86256; 86431

== ENCOUNTER 2019-06-01 06:45 | Emergency (ER) | payer MEDICARE, OTHER, SELFPAY ==
[2019-05-19 09:42] VITALS: BMI 26.7
[2019-06-01 06:45] VITALS: BP 185/124; PULSE 60; RESP 19; TEMP 36.8; O2SAT 76; O2SAT 97; BMI 25.6
[2019-06-01 06:48] VITALS: BP 185/124; PULSE 60; RESP 19; TEMP 36.8; O2SAT 97
--- NOTE | 2019-06-01 07:12 | EKG12_ITS ---
Test Reason : SOB Blood Pressure : / mmHG Vent. Rate : 062 BPM Atrial Rate : 062 BPM P-R Int : 220 ms QRS Dur : 104 ms QT Int : 488 ms P-R-T Axes : 030 046 158 degrees QTc Int : 495 ms Sinus rhythm with 1st degree A-V block with occasional Premature ventricular complexes Left ventricular hypertrophy with repolarization abnormality Prolonged QT Poor R-wave progression Abnormal ECG Confirmed by SCOTTY DIAZ, DIMITRIS ([id number]), international editorial producer JEFFREY ALANIZ ([id number]) on 06/03/2019 9:36:55 AM Referred By: DEONTE Confirmed By:DIMITRIS FAJARDO MD
--- NOTE | 2019-06-01 07:13 | ED.VIS.GEN ---
History of Present Illness Chief Complaint: Shortness of Breath Informant: Patient Onset: Days Context: Gradual Onset Current Severity: Moderate Maximum Severity: Moderate Narrative: Patient presents with 2-day history increased shortness of breath. He reports minimal cough and no chest pain. He does wear home oxygen as needed. He states of the past 2 or 3 weeks he is been wearing it pretty regularly. He does have increased problems breathing when lying down flat, but attributed this this to sinus drainage. He has not had significant peripheral edema. Patient denies fever or chills. - Past Medical History (1) Anemia in chronic kidney disease (CKD) Status: Chronic (2) Atherosclerosis of coronary artery of [place] heart without angina pectoris Status: Chronic Comment: CABG x 4: Sequential BALES-LAD an D1, SVG-OM1, SVG-RPDA 08/14/12 (3) Bilateral carotid artery stenosis Status: Chronic Comment: Right CEA 2016, Left Carotid Stented 2003 (4) CVA (cerebral vascular accident) Status: Chronic (5) Chronic diastolic (congestive) heart failure Status: Chronic (6) Essential (primary) hypertension Status: Chronic (7) GERD (gastroesophageal reflux disease) Status: Chronic (8) H/O coronary artery bypass surgery Status: Chronic Comment: CABG x 4: Sequential BALES-LAD an D1, SVG-OM1, SVG-RPDA 08/14/12 (9) Hyperlipidemia Status: Chronic (10) Paroxysmal atrial flutter Status: Chronic (11) Pulmonary hypertension Status: Chronic Comment: RVSP 43 mmHg (12) Stenosis of left subclavian artery Status: Chronic (13) Transient ischemic attack Status: Chronic (14) History of left common carotid artery stent placement Status: Resolved Past Medical History - Allergies and Home Meds Allergies/Adverse Reactions: Allergies No Known Allergies Allergy (Verified 05/19/19 09:39) Primary Care Physician: Jeremiah Mendoza MD [Primary Care Provider] - Prior records reviewed: Yes Surgical History: - Smoking Status: Former smoker - Family History Maternal Family History: Family History (Last Reviewed 05/19/19 @ 09:53 by DARIN Vicente) Son CAD (coronary artery disease) Brother CAD (coronary artery disease) Diabetes Brother CAD (coronary artery disease) Diabetes Family History: Reports: - - Patient notes no marked maternal family history including heart disease, diabetes, cancer. Paternal Family History: Family History (Last Reviewed 05/19/19 @ 09:53 by DARIN Vicente) Son CAD (coronary artery disease) Brother CAD (coronary artery disease) Diabetes Brother CAD (coronary artery disease) Diabetes Family History: Reports: Heart Disease, Hypertension Review of Systems General: Denies: Chills, Fever Eyes: Denies: Visual changes - bilaterally ENT: Denies: Bilateral ear pain Cardiovascular: Denies: Chest pain, Palpitations Respiratory: Reports: Dyspnea, Cough - Minimal cough Gastrointestinal: Denies: Abdominal pain, Nausea, Vomiting, Diarrhea Musculoskeletal: Denies: Swelling, Extremity Pain Skin: Denies: Rash Neurological: Denies: Headache Allergy: Denies: Uticaria Physical Exam Vital Signs/Narrative: Vital Signs Temp Pulse Resp BP Pulse Ox 06/01/19 06:48 98.3 F 60 19 H 185/124 H 97 06/01/19 06:45 98.3 F 60 19 H 185/124 H 97 Inital Vital Signs reviewed: Yes General: Well nourished, Well developed Head: Normocephalic ENT: Moist mucous membranes Neck: Supple Cardiovascular: Regular rate, Regular rhythm Respiratory: No distress, CTA bilaterally Abdomen: Soft, Nontender Extremities: Nontender, No edema Skin: Normal color Neurological: Alert, Oriented x3 Psychological: Normal affect Diagnostic/Tx/Re-eval Impressions Chest X-Ray 06/01/19 07:25 IMPRESSION: Suspected mild CHF and small left pleural effusion. No demonstrated focal pulmonary infiltrate. Electronically Signed: Herberth Andrade MD at 7:51 EDT , Service support , 06/01/19 07:25 Chest 1 View (Portable) [RAD] Stat Laboratory Results 06/01/19 06/01/19 06/01/19 06:55 06:55 06:55 WBC 9.4 RBC 4.05 L Hgb 10.7 L Hct 33.8 L MCV 83.5 MCH 26.4 L MCHC 31.7 L RDW Std Deviation 53.2 H RDW Coeff of Lisa 18.4 H Plt Count 198 MPV 10.5 Immature Gran % (Auto) 0.400 Neut % (Auto) 74.7 H Lymph % (Auto) 12.6 L [place] % (Auto) 8.6 Eos % (Auto) 3.2 Baso % (Auto) 0.5 Absolute Neuts (auto) 7.0 Absolute Lymphs (auto) 1.18 Nucleated RBC % 0 Sodium 139 Potassium 3.8 Chloride 107 Carbon Dioxide 25.0 Anion Gap 7 BUN 31 H Creatinine 1.72 H Estim Creat Clear Calc 37.01 Est GFR (MDRD) Af Amer 50 L Est GFR (MDRD) Non-Af 42 L BUN/Creatinine Ratio 18.0 Glucose 102 Calcium 9.2 Troponin I 0.025 B-Natriuretic Peptide 2316.8 H - EKG Initial EKG Interpretation: Sinus Rhythm - Sinus at 62 with PVCs. LVH with repole noted. This is unchanged when compared to prior study of April 07, 2019. - Medical Decision Making Patient is been stable on 2 L nasal cannula here with sats in the mid 90s. On review of prior records, patient presented with similar presentation in April with O2 sats in the mid 70s on room air. At that time he did not have home oxygen available. Patient now tells me that his Lasix was decreased to once a day from twice daily just a week ago. I spoke with Dr. Mo, covering for patient's user experience manager, Dr. Rogers. He agrees that patient can be given a dose of IV Lasix here and increase his home Lasix back to twice daily. He did ask us to ensure the patient has a pulse ox meter at home. If patient's O2 sats decreased patient is to return. He was also encouraged to contact his senior android software engineer. Of note, patient had an echocardiogram done during admission in April and his ejection fraction is 55%. I did discuss with the patient that in light of the coronavirus pandemic we would like to avoid hospitalizing the patient if possible to avoid his exposure. He voices understanding and agreement with this. He is comfortable treating himself at home and will return if symptoms worsen. ED Disposition - Plan for ED Patient: Disposition: Home or Assisted Living Diagnosis: CHF (congestive heart failure) Instructions: ED CHF General Referrals: Jeremiah Mendoza MD [Primary Care Provider] - Orlando Medina MD [STAFF PHYSICIAN] - Ian Rogers DO [STAFF PHYSICIAN] - Additional Instructions: As discussed, increase your Lasix to twice a day. Monitor your pulse ox regularly and return for any worsening symptoms or concerns.
[2019-06-01 07:16] VITALS: O2SAT 97
[2019-06-01 07:19] LABS: Absolute Lymphocyte Count 1.18 X10^3/uL (0.83-4.51); Basophil# 0.05 X10^3/uL; Basophil% 0.5 % (0-1); Eosinophils% 3.2 % (0-5); Hematocrit 33.8 % (40-54); Hemoglobin 10.7 g/dL (13.0-16.5); Lymphocyte # 1.18 X10^3/ul (4.0); Lymphocyte % 12.6 % (19-41); Mean Corp Hgb Conc 31.7 g/dL (32-36); Mean Corpuscular Hgb 26.4 pg (27.0-32.0); Mean Corpuscular Volume 83.5 fL (80-94); Mean Platelet Vol. 10.5 fl (6.2-12.0); Monocyte# 0.81 X10^3/uL; Monocyte% 8.6 % (0-10); NRBC Flagged by Analyzer 0 % (0-5); Neutrophil # 7.02 X10^3/uL (2.7-7.7); Neutrophil % 74.7 % (47-70); Platelet Count 198 K/mm3 (150-450); RBC Distribution Width CV 18.4 % (11.6-14.6); RBC Distribution Width SD 53.2 fl (35.1-43.9); Red Blood Count 4.05 M/mm3 (4.6-6.2); White Blood Count 9.4 K/mm3 (4.4-11.0)
--- NOTE | 2019-06-01 07:25 | RAD_ITS ---
STUDY: X-RAY CHEST REASON FOR EXAM: Male, 73 years old. shortness of breath TECHNIQUE: Single AP portable view of the chest. COMPARISON: 04/08/2019. FINDINGS: There is interstitial prominence, suggesting mild CHF. There is no demonstrated focal pulmonary infiltrate. There is probably a small left pleural effusion. There is mild cardiac enlargement. There are sternotomy wires and surgical clips suggesting previous CABG. Normal mediastinum and memo. Normal visualized pulmonary arteries. There is atherosclerotic calcification of the aortic arch. There are multilevel degenerative changes of the visualized thoracic spine. Normal visualized ribs, clavicles, and shoulders. There is no demonstrated abnormality of the visualized soft tissue structures of the upper abdomen. RAD/Chest 1 View (Portable) IMPRESSION: Suspected mild CHF and small left pleural effusion. No demonstrated focal pulmonary infiltrate. Electronically Signed: Herberth Andrade MD at 7:51 EDT , Service support ,
[2019-06-01 07:30] LABS: Anion Gap 7 (5-15); BUN 31 mg/dL (7-18); Calcium,Total 9.2 mg/dL (8.5-10.1); Chloride 107 mmol/L (98-107); Creatinine, Serum 1.72 mg/dL (0.70-1.30); EST Glomerular Filtration Rate 42 mL/min (>60); Est Glom Filt Rate - Afr Amer 50 mL/min (>60); Estimated Creatinine Clearance 37.01 ml/min; Glucose 102 mg/dL (74-106); Potassium 3.8 mmol/L (3.5-5.1); Sodium Level 139 mmol/L (136-145)
[2019-06-01 07:40] VITALS: BP 165/115; PULSE 60; RESP 20; O2SAT 96
[2019-06-01 07:55] LABS: BNP,B-Type NATRIURETIC PEPTIDE 2316.8 pg/mL (0-100)
[2019-06-01 08:36] VITALS: BP 161/58; PULSE 65; PULSE 66; RESP 20; TEMP 36.6; O2SAT 92
[2019-06-01] MEDS: Furosemide 20 MG/2 ML VIAL IV (08:36)
[2019-06-01 09:29] VITALS: BP 165/76; PULSE 58; RESP 18; O2SAT 97
== END 2019-06-01 09:30 | disposition home or self-care (01) ==
PROVIDERS: Emergency Provider Emergency Medicine; PCP Family Medicine
DX: I13.0 Hypertensive heart and chronic kidney disease with heart failure and stage 1 through stage 4 chronic kidney disease, or unspecified chronic kidney disease (principal); I50.32 Chronic diastolic (congestive) heart failure; N18.9 Chronic kidney disease, unspecified; D63.1 Anemia in chronic kidney disease; I25.10 Atherosclerotic heart disease of native coronary artery without angina pectoris; K21.9 Gastro-esophageal reflux disease without esophagitis; E78.5 Hyperlipidemia, unspecified; I27.20 Pulmonary hypertension, unspecified; Z86.73 Personal history of transient ischemic attack (TIA), and cerebral infarction without residual deficits; Z95.1 Presence of aortocoronary bypass graft; Z87.891 Personal history of nicotine dependence
CPT/HCPCS: 71045; 80048; 83880; 84484; 85025; 93005; 96374; 99285; A4216; J1940

== ENCOUNTER 2019-08-03 12:12 | Inpatient (IN) | payer MEDICARE, OTHER, SELFPAY ==
[2019-06-25 15:10] VITALS: BMI 26.6
[2019-08-03] VITALS (10 sets, daily range): BP systolic 136–168; BP diastolic 50–82; PULSE 54–66; RESP 18–20; TEMP 36.4–37.1; O2SAT 86–95; BMI 24.6; BMI 24.3
--- NOTE | 2019-08-03 12:44 | EKG12_ITS ---
Test Reason : SOB Blood Pressure : / mmHG Vent. Rate : 056 BPM Atrial Rate : 056 BPM P-R Int : 224 ms QRS Dur : 108 ms QT Int : 460 ms P-R-T Axes : 058 036 166 degrees QTc Int : 443 ms Sinus bradycardia with 1st degree A-V block Left ventricular hypertrophy with repolarization abnormality Abnormal ECG Confirmed by SCOTTY DIAZ, DIMITRIS ([id number]), clinical editor LISET VARELA ([id number]) on 08/06/2019 10:32:31 AM Referred By: /CARSON Confirmed By:DIMITRIS FAJARDO MD
[2019-08-03] MEDS: Furosemide 40 MG/4 ML Vial IV ×2 (13:53→18:16)
[2019-08-03 13:56] LABS: Absolute Lymphocyte Count 0.76 X10^3/uL (0.83-4.51); Absolute Neutrophil Count 5.7 X10^3/uL (2.0-7.7); Basophil# 0.04 X10^3/uL; Basophil% 0.5 % (0-1); Eosinophil# 0.15 X10^3/uL; Eosinophils% 2.1 % (0-5); Hematocrit 31.3 % (40-54); Hemoglobin 9.5 g/dL (13.0-16.5); Lymphocyte # 0.76 X10^3/ul (4.0); Lymphocyte % 10.4 % (19-41); Mean Corp Hgb Conc 30.4 g/dL (32-36); Mean Corpuscular Hgb 26.8 pg (27.0-32.0); Mean Corpuscular Volume 88.2 fL (80-94); Mean Platelet Vol. 9.9 fl (6.2-12.0); Monocyte# 0.59 X10^3/uL; Monocyte% 8.1 % (0-10); NRBC Flagged by Analyzer 0 % (0-5); Neutrophil # 5.73 X10^3/uL (2.7-7.7); Neutrophil % 78.4 % (47-70); Platelet Count 196 K/mm3 (150-450); RBC Distribution Width CV 19.1 % (11.6-14.6); RBC Distribution Width SD 61.2 fl (35.1-43.9); Red Blood Count 3.55 M/mm3 (4.6-6.2); White Blood Count 7.3 K/mm3 (4.4-11.0)
--- NOTE | 2019-08-03 14:11 | RAD_ITS ---
STUDY: X-RAY CHEST REASON FOR EXAM: Male, 74 years old. SOB TECHNIQUE: Single AP portable view of the chest. COMPARISON: Comparison is made with prior study dated June 01, 2019. FINDINGS: EKG electrodes are seen. There is evidence of vascular congestion and mild degree of CHF. There is no demonstrated pleural abnormality. Sternal cerclage wires and vascular clips are present from a prior sternotomy and coronary artery bypass graft procedure (CABG). Normal mediastinum and memo. Normal visualized pulmonary arteries. There is atherosclerotic calcification of the aortic arch with tortuosity. There are diffuse degenerative changes of the visualized thoracic spine. Normal visualized ribs, clavicles, and shoulders. There is no demonstrated abnormality of the visualized soft tissue structures of the upper abdomen. RAD/Chest 1 View (Portable) IMPRESSION: Vascular congestion and mild degree of CHF. Electronically Signed: Boy Bocanegra, at 14:42 EDT , Service support ,
[2019-08-03 14:14] LABS: Anion Gap 9 (5-15); BUN 45 mg/dL (7-18); BUN/Creat Ratio 23.3 RATIO (10-20); Chloride 102 mmol/L (98-107); Creatinine, Serum 1.93 mg/dL (0.70-1.30); EST Glomerular Filtration Rate 36 mL/min (>60); Est Glom Filt Rate - Afr Amer 44 mL/min (>60); Estimated Creatinine Clearance 32.49 ml/min; Glucose 115 mg/dL (74-106); Potassium 3.7 mmol/L (3.5-5.1); Sodium Level 137 mmol/L (136-145)
[2019-08-03 14:25] LABS: BNP,B-Type NATRIURETIC PEPTIDE 3979.8 pg/mL (0-100)
--- NOTE | 2019-08-03 14:39 | ED.VIS.GEN ---
History of Present Illness Chief Complaint: Shortness of Breath Narrative: Patient presenting for evaluation secondary to shortness of breath. Patient has a underlying history of congestive heart failure. Patient reports that over the course of multiple months, but worse in the last couple of days he has been having worsening shortness of breath. Patient states that it is been associated with peripheral edema over the course of the last 2 days. He reports that he gets short of breath with walking very short distances. He denies any chest pain. Denies any fever cough associated with this. No changes in his diuretics recently. Review of systems otherwise negative. Past Medical History - Allergies and Home Meds Allergies/Adverse Reactions: Allergies No Known Allergies Allergy (Verified 08/03/19 12:16) Primary Care Physician: Jeremiah Mendoza MD [Primary Care Provider] - Past Medical History: - - Congestive heart failure Surgical History: - Smoking Status: Former smoker - Family History Maternal Family History: Family History (Last Reviewed 05/19/19 @ 09:53 by DARIN Vicente) Son CAD (coronary artery disease) Brother CAD (coronary artery disease) Diabetes Brother CAD (coronary artery disease) Diabetes Family History: Reports: - - Patient notes no marked maternal family history including heart disease, diabetes, cancer. Paternal Family History: Family History (Last Reviewed 05/19/19 @ 09:53 by DARIN Vicente) Son CAD (coronary artery disease) Brother CAD (coronary artery disease) Diabetes Brother CAD (coronary artery disease) Diabetes Family History: Reports: Heart Disease, Hypertension Review of Systems All systems negative except as indicated General: Denies: Chills, Fever, Sweats Eyes: Denies: Visual changes - bilaterally, Diplopia ENT: Denies: Rhinorrhea, Sore throat Cardiovascular: Denies: Chest pain, Palpitations Respiratory: Reports: Dyspnea Gastrointestinal: Denies: Abdominal pain, Nausea, Vomiting, Diarrhea, Melena, Hematochezia Genitourinary: Denies: Dysuria, Hematuria, Frequency Musculoskeletal: Reports: Swelling Skin: Denies: Rash, Wounds Neurological: Denies: Headache, Weakness, Numbness Physical Exam Vital Signs/Narrative: Vital Signs Temp Pulse Resp BP Pulse Ox 08/03/19 14:00 98.6 F 60 18 162/52 H 93 08/03/19 13:55 98.7 F 54 L 20 H 136/75 H 86 08/03/19 12:14 98.7 F 54 L 20 H 136/75 H 86 Inital Vital Signs reviewed: Yes General: Well nourished, Well developed, No Acute Distress Head: Normocephalic, Atraumatic Eyes: Perrl, EOMI ENT: Moist mucous membranes, No rhinorrhea Neck: Supple, Nontender Cardiovascular: Regular rate, Regular rhythm, No murmurs Respiratory: Chest nontender, Rales, - - Tachypnea Abdomen: Soft, Nontender, Nondistended, Normal bowel sounds Back: Nontender, Normal Inspection Extremities: Nontender, Edema Skin: Normal color, No rash Neurological: Alert, Oriented x3, Cranial nerves II-XII grossly intact, Normal Strength, Normal Sensation Psychological: Normal affect, Normal Mood Diagnostic/Tx/Re-eval Chest X-Ray - ED: 1 View, Read by ED Physician, CHF Clinical Impression(s) from Imaging Studies Chest X-Ray 08/03/19 14:11 IMPRESSION: Vascular congestion and mild degree of CHF. Electronically Signed: Boy Bocanegra, at 14:42 EDT , Service support , Laboratory Data 08/03/19 08/03/19 08/03/19 13:48 13:48 13:48 WBC 7.3 RBC 3.55 L Hgb 9.5 L Hct 31.3 L MCV 88.2 MCH 26.8 L MCHC 30.4 L RDW Std Deviation 61.2 H RDW Coeff of Lisa 19.1 H Plt Count 196 MPV 9.9 Immature Gran % (Auto) 0.500 Neut % (Auto) 78.4 H Lymph % (Auto) 10.4 L [place] % (Auto) 8.1 Eos % (Auto) 2.1 Baso % (Auto) 0.5 Absolute Neuts (auto) 5.7 Absolute Lymphs (auto) 0.76 L Nucleated RBC % 0 Sodium 137 Potassium 3.7 Chloride 102 Carbon Dioxide 26.0 Anion Gap 9 BUN 45 H Creatinine 1.93 H Estim Creat Clear Calc 32.49 Est GFR (MDRD) Af Amer 44 L Est GFR (MDRD) Non-Af 36 L BUN/Creatinine Ratio 23.3 H Glucose 115 H Calcium 9.0 Troponin I 0.023 B-Natriuretic Peptide 3979.8 H - EKG Initial EKG Interpretation: - - Sinus bradycardia with a rate of 56 first-degree AV block with a FL interval of 224. Lateral T wave inversions are noted. No evidence of ST elevation. - Medical Decision Making Patient presenting secondary to shortness of breath. His history and physical seems concerning for congestive heart failure. EKG does not show any evidence of ST elevation. Chest x-ray shows pulmonary vascular congestion. CBC chemistry troponin and BNP are indicative of acute congestive heart failure. Patient was given Lasix in the emergency department. I believe he requires admission. I discussed this with the hospitalist. ED Disposition - Plan for ED Patient: Disposition: Acute Care Hospital [facility] Diagnosis: CHF exacerbation, Elevated troponin, Hypoxia
--- NOTE | 2019-08-03 14:51 | NURSING ---
ANNA LEPE CHF EXAC, CARDIAC STRAIN,HYPOXIA
--- NOTE | 2019-08-03 15:58 | HP.PCM_ITS ---
<Osmel Barragan - Last Filed: 08/03/19 15:58> Problem List (1) CHF exacerbation Status: Acute (2) Pulmonary hypertension Status: Chronic Comment: RVSP 43 mmHg (3) Gout Status: Chronic Qualifiers: Gout site: unspecified site (4) GERD (gastroesophageal reflux disease) Status: Chronic Qualifiers: Esophagitis presence: esophagitis presence not specified Qualified Code(s): K21.9 - Gastro-esophageal reflux disease without esophagitis (5) History of right-sided carotid endarterectomy Status: Resolved (6) Renal artery stenosis Status: Chronic Comment: left sided renal artery stent 2003 (7) Chronic kidney disease, stage 3 Status: Chronic (8) History of stent insertion of renal artery Status: Resolved Comment: 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, 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 (9) History of left common carotid artery stent placement Status: Resolved (10) CVA (cerebral vascular accident) Status: Chronic (11) Anemia in chronic kidney disease (CKD) Status: Chronic (12) Stage III chronic kidney disease Status: Chronic (13) Chronic diastolic (congestive) heart failure Status: Chronic (14) Bilateral carotid artery stenosis Status: Chronic Comment: Right CEA 2016, Left Carotid Stented 2003 (15) Paroxysmal atrial flutter Status: Chronic (16) Essential (primary) hypertension Status: Chronic (17) Hyperlipidemia Status: Chronic Qualifiers: Hyperlipidemia type: unspecified Qualified Code(s): E78.5 - Hyperlipidemia, unspecified (18) Peripheral vascular occlusive disease Status: Chronic Comment: Bilateral iliac stents, left renal artery stent History of Present Illness Date of Admission: 08/03/19 Chief Complaint: SOB The patient is a 74 year old M with pmhx of chronic diastolic congestive heart failure, chronic hypoxic respiratory failure on 3 L/min at baseline paroxysmal atrial fibrillation/flutter, CAD with prior CABG x4, PVD with prior peripheral a rtery stenting, renal artery stenosis with prior renal artery stent, carotid stenosis with prior stent and CEA, CKD stage III, anemia of chronic disease, who presented to the emergency room with complaints of shortness of breath. The patient noted he was progressively more more short of breath over the past 4 days. He has noticed that his legs have more swelling than usual. He also has noticed approximately 2 pounds of weight gain over his baseline. He denies any chest pain, pressure, heaviness, palpitations, lightheadedness or dizziness. He has been using his Lasix at home. He has a cough with sputum production. He has no fevers or chills. He has no nausea vomiting or diarrhea, no abdominal pain, no dysuria. He has no difficulty voiding. In the emergency room he appears to have acute congestive heart failure with a BNP of 3900, and he was hypoxic when he came in on 3 L he was 87%. [] Past Medical History Past Medical History (Chronic Problems): Chronic Problems (Last Reviewed 05/19/19 @ 09:53 by Aviva Hilario NP-C) Pulmonary hypertension (Chronic) RVSP 43 mmHg Gout (Chronic) GERD (gastroesophageal reflux disease) (Chronic) Renal artery stenosis (Chronic) left sided renal artery stent 2003 Chronic kidney disease, stage 3 (Chronic) Stenosis of left subclavian artery (Chronic) CVA (cerebral vascular accident) (Chronic) Anemia in chronic kidney disease (CKD) (Chronic) Stage III chronic kidney disease (Chronic) PND (post-nasal drip) (Chronic) Atherosclerosis of coronary artery of [place] heart without angina pectoris (Chronic) CABG x 4: Sequential BALES-LAD an D1, SVG-OM1, SVG-RPDA 08/14/12 H/O coronary artery bypass surgery (Chronic 08/14/12) CABG x 4: Sequential BALES-LAD an D1, SVG-OM1, SVG-RPDA 08/14/12 Chronic diastolic (congestive) heart failure (Chronic) Bilateral carotid artery stenosis (Chronic) Right CEA 2016, Left Carotid Stented 2003 Transient ischemic attack (Chronic) Paroxysmal atrial flutter (Chronic) Essential (primary) hypertension (Chronic) Hyperlipidemia (Chronic) Peripheral vascular occlusive disease (Chronic) Bilateral iliac stents, left renal artery stent Medical History: Medical History (Last Reviewed 05/19/19 @ 09:53 by Aviva Hilario, CHILD ADVOCATE-C) Respiratory failure with hypoxia (Resolved) J96.91 Gout (Chronic) M10.9 GERD (gastroesophageal reflux disease) (Chronic) K21.9 Renal artery stenosis (Chronic) I70.1 left sided renal artery stent 2003 Chronic kidney disease, stage 3 (Chronic) N18.3 Stenosis of left subclavian artery (Chronic) I77.1 CVA (cerebral vascular accident) (Chronic) I63.9 Anemia in chronic kidney disease (CKD) (Chronic) N18.9, D63.1 Atherosclerosis of coronary artery of [place] heart without angina pectoris (Chronic) I25.10 CABG x 4: Sequential BALES-LAD an D1, SVG-OM1, SVG-RPDA 08/14/12 Chronic diastolic (congestive) heart failure (Chronic) I50.32 Bilateral carotid artery stenosis (Chronic) I65.23 Right CEA 2016, Left Carotid Stented 2003 Transient ischemic attack (Chronic) G45.9 Paroxysmal atrial flutter (Chronic) I48.92 Essential (primary) hypertension (Chronic) I10 Hyperlipidemia (Chronic) E78.5 Peripheral vascular occlusive disease (Chronic) I73.9 Bilateral iliac stents, left renal artery stent Arthritis M19.90 Allergies No Known Allergies Allergy (Verified 08/03/19 12:16) Home Medications: Ambulatory Orders Medication Instructions Recorded Amlodipine [Norvasc] 10 mg PO DAILY 05/15/16 Atorvastatin Calcium [Lipitor] 80 mg PO DAILY 05/15/16 Doxazosin Mesylate [Cardura] 16 mg PO DAILY 05/15/16 Nitroglycerin [Nitrostat] 0.4 mg SL PRN PRN 05/15/16 hydrALAZINE [Apresoline] 50 mg PO TID 06/27/18 ferrous sulfate 325 mg (65 mg 325 mg PO DAILY 01/16/19 iron) tablet carvedilol 25 mg tablet 50 mg PO BID #180 tab 03/03/19 Ipratropium [place] 1 spray NASAL BID 04/07/19 Albuterol Sulfate [Albuterol 08/03/19 Sulfate HFA] Aspirin [Aspirin, Baby] 81 mg PO DAILY 08/03/19 Ezetimibe [Zetia] 10 mg PO DAILY 08/03/19 Furosemide [Lasix] 40 mg PO BID 08/03/19 Multivitamin with Minerals 1 tab PO DAILY 08/03/19 [Multiple Vitamin] Omeprazole 20 mg PO DAILY 08/03/19 Surgical History: Surgical History (Last Reviewed 05/19/19 @ 09:53 by Aviva Hilario NP-C) History of knee replacement (Resolved) Z96.659 H/O colonoscopy (Resolved) Z98.890 2009-repeat 2019 History of right-sided carotid endarterectomy (Resolved) Onset Date: 05/2016 Z98.890 History of herniorrhaphy (Resolved) Z98.890, Z87.19 History of left heart catheterization (Resolved) Onset Date: 08/13/12 Z98.890 History of angioplasty of peripheral vessel (Resolved) Z98.62 Bilateral iliac stents History of stent insertion of renal artery (Resolved) Onset Date: 2003 Z98.890 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, 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 History of left common carotid artery stent placement (Resolved) Onset Date: 2003 Z98.890, Z95.828 H/O basal cell carcinoma excision (Resolved) Onset Date: 09/2018 Z98.890, Z85.828 H/O coronary artery bypass surgery (Chronic) Onset Date: 08/14/12 Z95.1 CABG x 4: Sequential BALES-LAD an D1, SVG-OM1, SVG-RPDA 08/14/12 Surgical History: angioplasty, coronary bypass surgery, total knee arthroplasty, - - CEA, renal artery stent Psychiatric History: No pertinent psych hx Lives: Spouse/ Significant Other Smoking Status: Former smoker Tobacco Use: Non-smoker Alcohol: Occasional Drugs: None - *Family History Maternal Family History: Family History (Last Reviewed 08/03/19 @ 16:02 by ELVIN Murdock) Son CAD (coronary artery disease) Brother CAD (coronary artery disease) Diabetes Brother CAD (coronary artery disease) Diabetes History Items: - - Patient notes no marked maternal family history including heart disease, diabetes, cancer. Paternal Family History: Family History (Last Reviewed 08/03/19 @ 16:02 by ELVIN Murdock) Son CAD (coronary artery disease) Brother CAD (coronary artery disease) Diabetes Brother CAD (coronary artery disease) Diabetes History Items: Heart Disease, Hypertension Review of Systems Constitutional: Denies: Chills, Fever, Weight Change HEENT: Denies: Head Aches, Sinus Congestion, Sinus Drainage Cardiovascular: Denies: Chest Pain, Chest Pressure, Chest Tightness, Edema, Heaviness, Light Headedness, Palpitations Respiratory: Reports: Cough, Shortness of Breath, Shortness of breath at rest, Shortness of breath upon exertion. Denies: Sputum production, Wheezing Gastrointestinal: Denies: Abdominal Pain, Nausea, Vomiting Genitourinary: Denies: Dysuria Musculoskeletal: Denies: Joint Pain, Joint Tenderness Skin: Denies: Rash, Wounds Neurological: Denies: Numbness, Tingling, Focal weakness Psychiatric: Denies: Anxiety, Depression, Homicidal Ideations, Suicidal Ideations Hematologic/ Lymphatic: Denies: Easy Bruising, Easy Bleeding VTE Information - Inpt Only VTE Present on Admission: No VTE Mechan Device Prophylaxis: None VTE Pharm Prophylaxis ordered?: Yes Patient Problems: Active and Suspected Problems (Last Reviewed 05/19/19 @ 09:53 by IDALIA VicenteC) CHF exacerbation (Acute) Elevated troponin (Acute) Hypoxia (Acute) - Physical Exam Vitals/I&O's: Vital Signs Temp Pulse Resp BP Pulse Ox 97.7 F L 62 19 H 168/66 H 95 08/03/19 15:32 08/03/19 15:32 08/03/19 15:32 08/03/19 15:32 08/03/19 15:32 Oxygen Flow Rate (L/min) 5 Oxygen Delivery Method Room Air Weight: 162 lb Body Mass Index (BMI) 24.6 General: Alert, Oriented x3, Cooperative HEENT: Atraumatic, PERRLA, EOMI, Normocephalic Neck: Supple, No JVD, Negative Carotid Bruits Lungs: Normal air movement, Rales - BL bases Cardiovascular: Regular rate, Murmur - 3/6 systolic murmur best at LSB 2nd ICS Abdomen: Bowel Sounds Present, Soft, Non Tender Extremities: No edema, Capillary Refill Less than 3 Seconds Skin: No rashes, No breakdown Musculoskeletal: No Tenderness to Palpation of Joints or Extremities Neurological: Cranial nerves II-XII grossly intact Psych/Mental Status: Normal Affect, Appropriate, Alert and oriented to time, place, person, mood and affect Laboratory Results 08/03/19 13:48: WBC 7.3, RBC 3.55 L, Hgb 9.5 L, Hct 31.3 L, MCV 88.2, MCH 26.8 L , MCHC 30.4 L, RDW Std Deviation 61.2 H, RDW Coeff of Lisa 19.1 H, Plt Count 196, MPV 9.9, Immature Gran % (Auto) 0.500, Neut % (Auto) 78.4 H, Lymph % (Auto) 10.4 L, [place] % (Auto) 8.1, Eos % (Auto) 2.1, Baso % (Auto) 0.5, Absolute Neuts (auto) 5.7, Absolute Lymphs (auto) 0.76 L, Nucleated RBC % 0 08/03/19 13:48: Sodium 137, Potassium 3.7, Chloride 102, Carbon Dioxide 26.0, Anion Gap 9, BUN 45 H, Creatinine 1.93 H, Estim Creat Clear Calc 32.49, Est GFR (MDRD) Af Amer 44 L, Est GFR (MDRD) Non-Af 36 L, BUN/Creatinine Ratio 23.3 H, Glucose 115 H, Calcium 9.0, Troponin I 0.023 08/03/19 13:48: B-Natriuretic Peptide 3979.8 H Assessment/Plan All Active Problems (Last Reviewed 05/19/19 @ 09:53 by Aviva Hilario, CORIN-C) CHF exacerbation (Acute) Elevated troponin (Acute) Hypoxia (Acute) History of knee replacement (Resolved) H/O colonoscopy (Resolved) Respiratory failure with hypoxia (Resolved) History of right-sided carotid endarterectomy (Resolved 05/2016) History of herniorrhaphy (Resolved) History of left heart catheterization (Resolved 08/13/12) History of angioplasty of peripheral vessel (Resolved) History of stent insertion of renal artery (Resolved 2003) History of left common carotid artery stent placement (Resolved 2003) H/O basal cell carcinoma excision (Resolved 09/2018) 1. Acute hypoxia secondary to acute diastolic congestive heart failure exacerbation, complicated by pulmonary hypertension-patient has increased lower extremity edema, weight gain, shortness of breath, chest x-ray consistent with congestive heart failure and a severely elevated beta natruretic peptide. He will be placed on IV Lasix, fluid restriction, sodium restriction, check daily weights, monitor [place], apply bilateral lower extremity Roge wraps. He had an echo in April of this year so we will defer repeat at this time, his echo at that time had an EF of 55%, RVSP of 43 mmHg, 1+ MVI, mild aortic stenosis, 1+ PVI. 2. Chronic hypoxic respiratory failure secondary to chronic diastolic heart failure-baseline 3 L, currently requiring 5 L to maintain adequate saturations. Wean oxygen as tolerated. 3. CKD stage III-he does not appear to be significantly above baseline, will trend. 4. CAD with prior CABG-EKG with left bundle branch block, first-degree AV block, mild bradycardia. Troponin negative. Obtain old EKG. Maintain on telemetry. No chest pain. Continue Lipitor, Coreg, aspirin. 5. Multiple arterial issues-carotid artery disease, renal artery stenosis, peripheral artery stenosis, stenting of the carotids, carotid endarterectomy, renal artery stent, iliac artery stents, subclavian artery stenosis. Continue aspirin, Norvasc. 6. History of CVA - asa/statin 7. History of paroxysmal atrial flutter-EKG sinus bradycardia. He is not on oral anti-coagulation. Rate is controlled. Continue Coreg. 8. GERD-continue PPI 9. Hyperlipidemia-Zetia, statin 10. Hypertension-somewhat elevated in the ER, will trend as he is diuresed and adjust home medications as needed. 11. Hx Gout DVT prophylaxis: heparin DC planning: walking pulse ox prior to dc This patient was seen by Osmel Barragan PA-C under the supervision of Doctor Stephanie. <Zac Brown - Last Filed: 08/03/19 18:26> History of Present Illness The patient is a 74 year old M [] Past Medical History Medical History: Medical History (Last Reviewed 05/19/19 @ 09:53 by Aviva Hilario NP-Shaye) Respiratory failure with hypoxia (Resolved) J96.91 Gout (Chronic) M10.9 GERD (gastroesophageal reflux disease) (Chronic) K21.9 Renal artery stenosis (Chronic) I70.1 left sided renal artery stent 2003 Chronic kidney disease, stage 3 (Chronic) N18.3 Stenosis of left subclavian artery (Chronic) I77.1 CVA (cerebral vascular accident) (Chronic) I63.9 Anemia in chronic kidney disease (CKD) (Chronic) N18.9, D63.1 Atherosclerosis of coronary artery of [place] heart without angina pectoris (Chronic) I25.10 CABG x 4: Sequential BALES-LAD an D1, SVG-OM1, SVG-RPDA 08/14/12 Chronic diastolic (congestive) heart failure (Chronic) I50.32 Bilateral carotid artery stenosis (Chronic) I65.23 Right CEA 2016, Left Carotid Stented 2003 Transient ischemic attack (Chronic) G45.9 Paroxysmal atrial flutter (Chronic) I48.92 Essential (primary) hypertension (Chronic) I10 Hyperlipidemia (Chronic) E78.5 Peripheral vascular occlusive disease (Chronic) I73.9 Bilateral iliac stents, left renal artery stent Arthritis M19.90 Allergies No Known Allergies Allergy (Verified 08/03/19 12:16) Surgical History: Surgical History (Last Reviewed 05/19/19 @ 09:53 by IDALIA VicenteC) History of knee replacement (Resolved) Z96.659 H/O colonoscopy (Resolved) Z98.890 2009-repeat 2019 History of right-sided carotid endarterectomy (Resolved) Onset Date: 05/2016 Z98.890 History of herniorrhaphy (Resolved) Z98.890, Z87.19 History of left heart catheterization (Resolved) Onset Date: 08/13/12 Z98.890 History of angioplasty of peripheral vessel (Resolved) Z98.62 Bilateral iliac stents History of stent insertion of renal artery (Resolved) Onset Date: 2003 Z98.890 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, 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 History of left common carotid artery stent placement (Resolved) Onset Date: 2003 Z98.890, Z95.828 H/O basal cell carcinoma excision (Resolved) Onset Date: 09/2018 Z98.890, Z85.828 H/O coronary artery bypass surgery (Chronic) Onset Date: 08/14/12 Z95.1 CABG x 4: Sequential BALES-LAD an D1, SVG-OM1, SVG-RPDA 08/14/12 - *Family History Maternal Family History: Family History (Last Reviewed 08/03/19 @ 16:02 by ELVIN Murdock) Son CAD (coronary artery disease) Brother CAD (coronary artery disease) Diabetes Brother CAD (coronary artery disease) Diabetes Paternal Family History: Family History (Last Reviewed 08/03/19 @ 16:02 by ELVIN Murdock) Son CAD (coronary artery disease) Brother CAD (coronary artery disease) Diabetes Brother CAD (coronary artery disease) Diabetes - Physical Exam Vitals/I&O's: Vital Signs Temp Pulse Resp BP Pulse Ox 97.5 F L 66 20 H 148/82 H 93 08/03/19 16:30 08/03/19 17:07 08/03/19 16:30 08/03/19 16:30 08/03/19 16:30 Oxygen Flow Rate (L/min) 6 Oxygen Delivery Method Nasal Cannula Weight: 159 lb 9.835 oz Body Mass Index (BMI) 24.3 Intake and Output for Last 24 Hours 05/08/02/19 08/03/19 23:59 23:59 23:59 Output Total 450 / 450 Balance -450 / -450 Laboratory Results 08/03/19 13:48: WBC 7.3, RBC 3.55 L, Hgb 9.5 L, Hct 31.3 L, MCV 88.2, MCH 26.8 L , MCHC 30.4 L, RDW Std Deviation 61.2 H, RDW Coeff of Lisa 19.1 H, Plt Count 196, MPV 9.9, Immature Gran % (Auto) 0.500, Neut % (Auto) 78.4 H, Lymph % (Auto) 10.4 L, [place] % (Auto) 8.1, Eos % (Auto) 2.1, Baso % (Auto) 0.5, Absolute Neuts (auto) 5.7, Absolute Lymphs (auto) 0.76 L, Nucleated RBC % 0 08/03/19 13:48: Sodium 137, Potassium 3.7, Chloride 102, Carbon Dioxide 26.0, Anion Gap 9, BUN 45 H, Creatinine 1.93 H, Estim Creat Clear Calc 32.49, Est GFR (MDRD) Af Amer 44 L, Est GFR (MDRD) Non-Af 36 L, BUN/Creatinine Ratio 23.3 H, Glucose 115 H, Calcium 9.0, Troponin I 0.023 08/03/19 13:48: B-Natriuretic Peptide 3979.8 H Current Medications Acetaminophen (Tylenol) 650 mg PO Q6H PRN PRN PRN Reason: Pain Score 1-10/Temp > 100.7 F Amlodipine Besylate (Norvasc) 10 mg PO DAILY [facility] Aspirin (Aspirin, Baby) 81 mg PO DAILY@0800 [facility] Atorvastatin Calcium (Lipitor) 80 mg PO QHS [facility] Carvedilol (Coreg) 50 mg PO BID [facility] Doxazosin Mesylate (Cardura) 16 mg PO QHS [facility] Ezetimibe (Zetia) 10 mg PO QHS [facility] Ferrous Sulfate (Ferrous Sulfate) 325 mg PO DAILY@1200 [facility] Furosemide (Lasix) 40 mg IV BID@1000,1800 TRINI Last Admin: 08/03/19 18:16 Dose: 40 mg Documented by: Heparin Sodium (Porcine) (Heparin Na) 5,000 unit SC Q8 [facility] Hydralazine HCl (Apresoline) 50 mg PO TID TRINI Sodium Chloride () 250 mls @ 15 mls/hr IV .[id number] PRN PRN Reason: Saline Flush Sodium Chloride () 250 mls @ 15 mls/hr IV .[id number] PRN PRN Reason: Additional IVPB Infusion Melatonin (Melatonin) 3 mg PO QHS PRN PRN PRN Reason: INSOMNIA Nitroglycerin (Nitrostat) 0.4 mg SUBLINGUAL PRN PRN PRN Reason: Angina Ondansetron HCl (Zofran) 4 mg IV Q8H PRN PRN PRN Reason: NAUSEA/VOMITING Pantoprazole Sodium (Protonix) 20 mg PO DAILY TRINI Sodium Chloride () 10 - 40 ml IV UD PRN PRN Reason: SALINE FLUSH Addendum: Dr. Brown I personally examined the patient and reviewed the chart. I agree with the above. 24-year-old male with a history of acute on chronic diastolic congestive heart failure as well as pulmonary hypertension and chronic hypoxic respiratory failure presents to the hospital with shortness of breath. He states that it has gotten worse over the last 3 weeks. He was recently here in the hospital in May where he was placed on a baseline of 2-1/2 to 3 L of oxygen via nasal cannula. He had an echo in April of this year with an EF of 55% and an RVSP pressure of 43. He does have a baseline chronic kidney disease with a baseline creatinine of around 1.9 and his current creatinine is 1.93. His BNP in the ER was almost 4000 and he was hypoxic to 87% on 3 L nasal cannula. Because he had an echo within the last 6 months, no need to repeat. We will proceed with a fluid restriction as well as twice daily dosing on Lasix. He has not noticed much change in his weight though he has noticed that his lower extremity are much more edematous today. Inpatient E&M: [id number] Init Hosp L3
[2019-08-03] MEDS: Atorvastatin Calcium 80 MG Tablet PO (22:04)
[2019-08-03] MEDS: Carvedilol 25 MG Tablet 50 MG PO (22:04)
[2019-08-03] MEDS: Ezetimibe 10 MG Tablet PO (22:04)
[2019-08-03] MEDS: hydrALAZINE 50 MG Tablet PO (22:04)
[2019-08-03] MEDS: Heparin Injection (Vial) 5,000 UNIT/ML VIAL 5000 UNIT SC (22:05)
[2019-08-03] MEDS: Doxazosin 4 MG Tablet 16 MG PO (22:05)
[2019-08-04] VITALS (13 sets, daily range): BP systolic 112–150; BP diastolic 41–89; PULSE 54–64; RESP 16–18; TEMP 36.7–37; O2SAT 92–95
[2019-08-04] MEDS: hydrALAZINE 50 MG Tablet PO ×3 (05:19→21:50)
[2019-08-04] MEDS: Heparin Injection (Vial) 5,000 UNIT/ML VIAL 5000 UNIT SC ×3 (05:20→21:52)
[2019-08-04 05:34] LABS: Absolute Lymphocyte Count 0.95 X10^3/uL (0.83-4.51); Basophil# 0.08 X10^3/uL; Eosinophil# 0.19 X10^3/uL; Eosinophils% 2.3 % (0-5); Hematocrit 28.1 % (40-54); Hemoglobin 8.3 g/dL (13.0-16.5); Lymphocyte # 0.95 X10^3/ul (4.0); Lymphocyte % 11.7 % (19-41); Mean Corp Hgb Conc 29.5 g/dL (32-36); Mean Corpuscular Hgb 26.3 pg (27.0-32.0); Mean Corpuscular Volume 88.9 fL (80-94); Mean Platelet Vol. 10.6 fl (6.2-12.0); Monocyte# 0.84 X10^3/uL; Monocyte% 10.4 % (0-10); NRBC Flagged by Analyzer 0 % (0-5); Neutrophil # 6.02 X10^3/uL (2.7-7.7); Neutrophil % 74.2 % (47-70); Platelet Count 194 K/mm3 (150-450); RBC Distribution Width CV 19.2 % (11.6-14.6); RBC Distribution Width SD 63.1 fl (35.1-43.9); Red Blood Count 3.16 M/mm3 (4.6-6.2); White Blood Count 8.1 K/mm3 (4.4-11.0)
[2019-08-04 05:54] LABS: Anion Gap 8 (5-15); BUN 45 mg/dL (7-18); Calcium,Total 8.6 mg/dL (8.5-10.1); Chloride 104 mmol/L (98-107); Creatinine, Serum 2.14 mg/dL (0.70-1.30); EST Glomerular Filtration Rate 32 mL/min (>60); Est Glom Filt Rate - Afr Amer 39 mL/min (>60); Glucose 84 mg/dL (74-106); Potassium 3.8 mmol/L (3.5-5.1); Sodium Level 141 mmol/L (136-145)
[2019-08-04] MEDS: amLODIPine 10 MG Tablet PO (10:01)
[2019-08-04] MEDS: Pantoprazole Sodium 20 MG Tablet PO (10:01)
[2019-08-04] MEDS: Furosemide 40 MG/4 ML Vial IV ×2 (10:01→17:57)
[2019-08-04] MEDS: Carvedilol 25 MG Tablet 50 MG PO ×2 (10:01→21:51)
[2019-08-04] MEDS: Aspirin 81 MG TAB.CHEW PO (10:01)
--- NOTE | 2019-08-04 11:27 | CASEMGMT ---
JEROD HART assessment: Face to Face with patient for initial transition planning/care coordination assessment. JEROD HART introduced self and role at [facility], pt voices understanding and consents to assessment at this time. Pt is sitting up on side of bed in no distress at this time. Pt is A/Ox4 at this time and answers all questions appropriately at this time. Care providers, pharmacy, and demographics verified at this time. Presentation: Pt w/ increasing SOB/lower extremity edema for last several days. pt states on 2liters at home but has been wearing 3liters. Admitting dx: CHF w/ pulm HTN PCP: [facility] Specialists: cheikh Rogers; Lg cardio Preferred Pharmacy: [facility] Insurance: [employer] A/B, [employer] Prescription Benefit: Yes Living Will/HPOA: Pt states does have LW/HPOA and is aware that they are not on file at [facility] at this time. Pt states his son, Nick Zimmer, is HPOA. LNOK: Nick Zimmer, son/HPOA; Rita Faria, sig other Living Arrangements: Pt states lives with sig other in home and states no concerns at home at this time. Pt states is independent with ADL's. Transportation: Pt states drives self and states no transportation concerns at this time. DME/HHC: Pt states has grab bars in shower, shower chair if he needs it and states is on 2.5liters of home oxygen with portable concentrator through [employer] and states no need for any at this time. Pt states no hx of HHC or SNF in the past. Pt states no concerns with going home at time of discharge. Pt states is retired. Pt states does not smoke or drink ETOH. Pt states no further concerns/needs at this time. CM to follow for any further discharge planning/needs. Advised pt to ask for CM if any further questions/concerns/needs arise, voices understanding. Pt Goal: Home Plan: [place] JEROD HART
--- NOTE | 2019-08-04 11:57 | PCM.PN.HOSP ---
<Osmel Barragan - Last Filed: 08/04/19 11:57> Patient Problems: Active and Suspected Problems (Last Reviewed 05/19/19 @ 09:53 by DARIN Vicente) CHF exacerbation (Acute) Elevated troponin (Acute) Hypoxia (Acute) Reason for Visit: SOB Subjective: SOB and LE edema improving. Pt back on home o2 level (3). Pt feels that he is not back to his normal, and that he does not feel comfortably going home at this point. No CP. No cough. No fever/chills. No issues emptying bladder. Vitals/I&O's: Vital Signs Temp Pulse Resp BP Pulse Ox 98.6 F 61 16 112/89 H 95 08/04/19 09:57 08/04/19 09:57 08/04/19 09:57 08/04/19 09:57 08/04/19 09:57 Oxygen Flow Rate (L/min) 3 Oxygen Delivery Method Nasal Cannula Weight: 156 lb 11.979 oz Body Mass Index (BMI) 24.3 Intake and Output for Last 24 Hours 08/02/19 08/03/19 08/04/19 23:59 23:59 23:59 Intake Total 240 / 240 50 / 50 Output Total 1300 / 1300 Balance -1060 / -1060 50 / 50 General: Alert, Oriented x3, Cooperative HEENT: Atraumatic, PERRLA, EOMI, Normocephalic Neck: Supple, No JVD, Negative Carotid Bruits Lungs: Clear to auscultation, Normal air movement, Rales - BL basilar fine rales. Cardiovascular: Regular rate, Murmur - 2/6 systolic murmur LSB 2nd ics Abdomen: Bowel Sounds Present, Soft, Non Tender Extremities: No edema, Capillary Refill Less than 3 Seconds Skin: No rashes, No breakdown Musculoskeletal: No Tenderness to Palpation of Joints or Extremities Neurological: Cranial nerves II-XII grossly intact Psych/Mental Status: Normal Affect, Appropriate, Alert and oriented to time, place, person, mood and affect Laboratory Results 08/03/19 13:48: WBC 7.3, RBC 3.55 L, Hgb 9.5 L, Hct 31.3 L, MCV 88.2, MCH 26.8 L, MCHC 30.4 L, RDW Std Deviation 61.2 H, RDW Coeff of Lisa 19.1 H, Plt Count 196, MPV 9.9, Immature Gran % (Auto) 0.500, Neut % (Auto) 78.4 H, Lymph % (Auto) 10.4 L, Toombs % (Auto) 8.1, Eos % (Auto) 2.1, Baso % (Auto) 0.5, Absolute Neuts (auto) 5.7, Absolute Lymphs (auto) 0.76 L, Nucleated RBC % 0 08/03/19 13:48: Sodium 137, Potassium 3.7, Chloride 102, Carbon Dioxide 26.0, Anion Gap 9, BUN 45 H, Creatinine 1.93 H, Estim Creat Clear Calc 32.49, Est GFR (MDRD) Af Amer 44 L, Est GFR (MDRD) Non-Af 36 L, BUN/Creatinine Ratio 23.3 H, Glucose 115 H, Calcium 9.0, Troponin I 0.023 08/03/19 13:48: B-Natriuretic Peptide 3979.8 H 08/04/19 05:02: WBC 8.1, RBC 3.16 L, Hgb 8.3 L, Hct 28.1 L, MCV 88.9, MCH 26.3 L, MCHC 29.5 L, RDW Std Deviation 63.1 H, RDW Coeff of Lisa 19.2 H, Plt Count 194, MPV 10.6, Immature Gran % (Auto) 0.400, Neut % (Auto) 74.2 H, Lymph % (Auto) 11.7 L, Toombs % (Auto) 10.4 H, Eos % (Auto) 2.3, Baso % (Auto) 1.0, Absolute Neuts (auto) 6.0, Absolute Lymphs (auto) 0.95, Nucleated RBC % 0 08/04/19 05:02: Sodium 141, Potassium 3.8, Chloride 104, Carbon Dioxide 29.0, Anion Gap 8, BUN 45 H, Creatinine 2.14 H, Estim Creat Clear Calc 29.30, Est GFR (MDRD) Af Amer 39 L, Est GFR (MDRD) Non-Af 32 L, BUN/Creatinine Ratio 21.0 H, Glucose 84, Calcium 8.6 Current Medications Acetaminophen (Tylenol) 650 mg PO Q6H PRN PRN PRN Reason: Pain Score 1-10/Temp > 100.7 F Amlodipine Besylate (Norvasc) 10 mg PO DAILY [facility] Last Admin: 08/04/19 10:01 Dose: 10 mg Documented by: Aspirin (Aspirin, Baby) 81 mg PO DAILY@0800 [facility] Last Admin: 08/04/19 10:01 Dose: 81 mg Documented by: Atorvastatin Calcium (Lipitor) 80 mg PO QHS [facility] Last Admin: 08/03/19 22:04 Dose: 80 mg Documented by: Carvedilol (Coreg) 50 mg PO BID [facility] Last Admin: 08/04/19 10:01 Dose: 50 mg Documented by: Doxazosin Mesylate (Cardura) 16 mg PO QHS [facility] Last Admin: 08/03/19 22:05 Dose: 16 mg Documented by: Ezetimibe (Zetia) 10 mg PO QHS [facility] Last Admin: 08/03/19 22:04 Dose: 10 mg Documented by: Ferrous Sulfate (Ferrous Sulfate) 325 mg PO DAILY@1200 [facility] Furosemide (Lasix) 40 mg IV BID@1000,1800 [facility] Last Admin: 08/04/19 10:01 Dose: 40 mg Documented by: Heparin Sodium (Porcine) (Heparin Na) 5,000 unit SC Q8 [facility] Last Admin: 08/04/19 05:20 Dose: 5,000 unit Documented by: Hydralazine HCl (Apresoline) 50 mg PO TID [facility] Last Admin: 08/04/19 05:19 Dose: 50 mg Documented by: Sodium Chloride () 250 mls @ 15 mls/hr IV .[id number] PRN PRN Reason: Saline Flush Sodium Chloride () 250 mls @ 15 mls/hr IV .[id number] PRN PRN Reason: Additional IVPB Infusion Melatonin (Melatonin) 3 mg PO QHS PRN PRN PRN Reason: INSOMNIA Nitroglycerin (Nitrostat) 0.4 mg SUBLINGUAL PRN PRN PRN Reason: Angina Ondansetron HCl (Zofran) 4 mg IV Q8H PRN PRN PRN Reason: NAUSEA/VOMITING Pantoprazole Sodium (Protonix) 20 mg PO DAILY [facility] Last Admin: 08/04/19 10:01 Dose: 20 mg Documented by: Sodium Chloride () 10 - 40 ml IV UD PRN PRN Reason: SALINE FLUSH STROKE Vital Signs/Narrative: Vital Signs Temp Pulse Resp BP Pulse Ox 08/04/19 09:57 98.6 F 61 16 112/89 H 95 Medical Necessity - Tobacco Use Smoking Status: Former smoker Tobacco Use: Non-smoker Assessment/Plan All Active Problems (Last Reviewed 05/19/19 @ 09:53 by Aviva Hilario NP-C) CHF exacerbation (Acute) Elevated troponin (Acute) Hypoxia (Acute) History of knee replacement (Resolved) H/O colonoscopy (Resolved) Respiratory failure with hypoxia (Resolved) History of right-sided carotid endarterectomy (Resolved 05/2016) History of herniorrhaphy (Resolved) History of left heart catheterization (Resolved 08/13/12) History of angioplasty of peripheral vessel (Resolved) History of stent insertion of renal artery (Resolved 2003) History of left common carotid artery stent placement (Resolved 2003) H/O basal cell carcinoma excision (Resolved 09/2018) 1. Acute hypoxia secondary to acute diastolic congestive heart failure exacerbation, complicated by pulmonary hypertension-improved. continue lasix x 1 more night. 2. Chronic hypoxic respiratory failure secondary to chronic diastolic heart failure-baseline 3 L, back to baseline. 3. CKD stage III-bump, recheck in am. 4. CAD with prior CABG-EKG with left bundle branch block, first-degree AV block, mild bradycardia. Troponin negative. Obtain old EKG. Maintain on telemetry. No chest pain. Continue Lipitor, Coreg, aspirin. 5. Multiple arterial issues-carotid artery disease, renal artery stenosis, peripheral artery stenosis, stenting of the carotids, carotid endarterectomy, renal artery stent, iliac artery stents, subclavian artery stenosis. Continue aspirin, Norvasc. 6. History of CVA - asa/statin 7. History of paroxysmal atrial flutter-EKG sinus bradycardia. He is not on oral anti-coagulation. Rate is controlled. Continue Coreg. 8. GERD-continue PPI 9. Hyperlipidemia-Zetia, statin 10. Hypertension-somewhat elevated in the ER, much improved today. 11. Hx Gout DVT prophylaxis: heparin DC planning: walking pulse ox prior to dc This patient was seen by Osmel Barragan PA-C under the supervision of Doctor Gisel <Simón Batres - Last Filed: 08/04/19 12:42> Vitals/I&O's: Vital Signs Temp Pulse Resp BP Pulse Ox 98.6 F 61 16 112/89 H 95 08/04/19 09:57 08/04/19 09:57 08/04/19 09:57 08/04/19 09:57 08/04/19 09:57 Oxygen Flow Rate (L/min) 3 Oxygen Delivery Method Nasal Cannula Weight: 71.1 kg Body Mass Index (BMI) 24.3 Intake and Output for Last 24 Hours 08/02/19 08/03/19 08/04/19 23:59 23:59 23:59 Intake Total 240 / 240 290 / 290 Output Total 1300 / 1300 775 / 775 Balance -1060 / -1060 -485 / -485 Laboratory Results 08/03/19 13:48: WBC 7.3, RBC 3.55 L, Hgb 9.5 L, Hct 31.3 L, MCV 88.2, MCH 26.8 L, MCHC 30.4 L, RDW Std Deviation 61.2 H, RDW Coeff of Lisa 19.1 H, Plt Count 196, MPV 9.9, Immature Gran % (Auto) 0.500, Neut % (Auto) 78.4 H, Lymph % (Auto) 10.4 L, Toombs % (Auto) 8.1, Eos % (Auto) 2.1, Baso % (Auto) 0.5, Absolute Neuts (auto) 5.7, Absolute Lymphs (auto) 0.76 L, Nucleated RBC % 0 08/03/19 13:48: Sodium 137, Potassium 3.7, Chloride 102, Carbon Dioxide 26.0, Anion Gap 9, BUN 45 H, Creatinine 1.93 H, Estim Creat Clear Calc 32.49, Est GFR (MDRD) Af Amer 44 L, Est GFR (MDRD) Non-Af 36 L, BUN/Creatinine Ratio 23.3 H, Glucose 115 H, Calcium 9.0, Troponin I 0.023 08/03/19 13:48: B-Natriuretic Peptide 3979.8 H 08/04/19 05:02: WBC 8.1, RBC 3.16 L, Hgb 8.3 L, Hct 28.1 L, MCV 88.9, MCH 26.3 L, MCHC 29.5 L, RDW Std Deviation 63.1 H, RDW Coeff of Lisa 19.2 H, Plt Count 194, MPV 10.6, Immature Gran % (Auto) 0.400, Neut % (Auto) 74.2 H, Lymph % (Auto) 11.7 L, Toombs % (Auto) 10.4 H, Eos % (Auto) 2.3, Baso % (Auto) 1.0, Absolute Neuts (auto) 6.0, Absolute Lymphs (auto) 0.95, Nucleated RBC % 0 08/04/19 05:02: Sodium 141, Potassium 3.8, Chloride 104, Carbon Dioxide 29.0, Anion Gap 8, BUN 45 H, Creatinine 2.14 H, Estim Creat Clear Calc 29.30, Est GFR (MDRD) Af Amer 39 L, Est GFR (MDRD) Non-Af 32 L, BUN/Creatinine Ratio 21.0 H, Glucose 84, Calcium 8.6 Current Medications Acetaminophen (Tylenol) 650 mg PO Q6H PRN PRN PRN Reason: Pain Score 1-10/Temp > 100.7 F Amlodipine Besylate (Norvasc) 10 mg PO DAILY [facility] Last Admin: 08/04/19 10:01 Dose: 10 mg Documented by: Aspirin (Aspirin, Baby) 81 mg PO DAILY@0800 [facility] Last Admin: 08/04/19 10:01 Dose: 81 mg Documented by: Atorvastatin Calcium (Lipitor) 80 mg PO QHS [facility] Last Admin: 08/03/19 22:04 Dose: 80 mg Documented by: Carvedilol (Coreg) 50 mg PO BID [facility] Last Admin: 08/04/19 10:01 Dose: 50 mg Documented by: Doxazosin Mesylate (Cardura) 16 mg PO QHS [facility] Last Admin: 08/03/19 22:05 Dose: 16 mg Documented by: Ezetimibe (Zetia) 10 mg PO QHS [facility] Last Admin: 08/03/19 22:04 Dose: 10 mg Documented by: Ferrous Sulfate (Ferrous Sulfate) 325 mg PO DAILY@1200 [facility] Furosemide (Lasix) 40 mg IV BID@1000,1800 [facility] Last Admin: 08/04/19 10:01 Dose: 40 mg Documented by: Heparin Sodium (Porcine) (Heparin Na) 5,000 unit SC Q8 [facility] Last Admin: 08/04/19 05:20 Dose: 5,000 unit Documented by: Hydralazine HCl (Apresoline) 50 mg PO TID [facility] Last Admin: 08/04/19 05:19 Dose: 50 mg Documented by: Sodium Chloride () 250 mls @ 15 mls/hr IV .[id number] PRN PRN Reason: Saline Flush Sodium Chloride () 250 mls @ 15 mls/hr IV .[id number] PRN PRN Reason: Additional IVPB Infusion Melatonin (Melatonin) 3 mg PO QHS PRN PRN PRN Reason: INSOMNIA Nitroglycerin (Nitrostat) 0.4 mg SUBLINGUAL PRN PRN PRN Reason: Angina Ondansetron HCl (Zofran) 4 mg IV Q8H PRN PRN PRN Reason: NAUSEA/VOMITING Pantoprazole Sodium (Protonix) 20 mg PO DAILY [facility] Last Admin: 08/04/19 10:01 Dose: 20 mg Documented by: Sodium Chloride () 10 - 40 ml IV UD PRN PRN Reason: SALINE FLUSH STROKE Vital Signs/Narrative: Vital Signs Temp Pulse Resp BP Pulse Ox 08/04/19 09:57 98.6 F 61 16 112/89 H 95 Assessment/Plan This patient was seen in conjunction with Osmel Barragan PA-C . I have independently interviewed and examined the patient and reviewed pertinent historical, laboratory, and other data. Please refer to Osmel Barragan PA-C note for details of this patient's presentation, findings, and recommendations. I have reviewed Osmel Barragan PA-C note and concur with documented findings. In brief, patient is a 74-year-old gentleman with multiple comorbidities including chronic hypoxic respiratory failure, COPD CAD who presented with progressive shortness of breath and assessment of acute congestive heart failure made admitted to monitored bed for further management Physical Examination: GENERAL: cooperative HEENT: Atraumatic; EYES; Anicteric, Normal Conjunctiva NECK; supple, normal thyroid, RESPIRATORY: Diminished to auscultation CARDIOVASCULAR: Regular S1 S2, GI: soft, normoactive bowel sounds, : No Renal angle tenderness; EXTREMITIES: No edema, no clubbing, MUSCULOSKELETAL: no muscle waisting NEURO: Awake; no lateralizing signs. SKIN: No Rash PSYCH; Flat affect Assessment: 1. Acute chronic hypoxic respiratory failure 2. Acute on chronic congestive heart failure with preserved ejection fraction 3. Chronic hypoxic respiratory failure on baseline home O2 4. COPD 5. CAD status post CABG 6. Peripheral arterial disease with history of stenting of the carotids, carotid endarterectomy, renal artery stent, iliac artery stents, subclavian artery stenosis. 7. Dyslipidemia 8. Chronic kidney disease stage III/IV 9 9. History of previous CVA 9. Paroxysmal atrial flutter 10. Hypertension 11. Gout 12. DVT prophylaxis Recommendations: 1. I have discussed the results of my overview and impressions with the patient 2. Options for management were reviewed Inpatient E&M: [id number] [facility] [[email or web address] Hosp L3 -
[2019-08-04] MEDS: Ferrous Sulfate 325 MG Tablet PO (13:13)
[2019-08-04] MEDS: Doxazosin 4 MG Tablet 16 MG PO (21:51)
[2019-08-04] MEDS: Ezetimibe 10 MG Tablet PO (21:51)
[2019-08-04] MEDS: Atorvastatin Calcium 80 MG Tablet PO (21:52)
[2019-08-05] VITALS (7 sets, daily range): BP systolic 148–157; BP diastolic 41–47; PULSE 58–67; RESP 14–18; TEMP 36.8–36.9; O2SAT 90–95
[2019-08-05] MEDS: hydrALAZINE 50 MG Tablet PO (05:19)
[2019-08-05] MEDS: Heparin Injection (Vial) 5,000 UNIT/ML VIAL 5000 UNIT SC (05:19)
[2019-08-05 06:10] LABS: Hematocrit 27.6 % (40-54); Hemoglobin 8.3 g/dL (13.0-16.5)
[2019-08-05 06:36] LABS: Anion Gap 10 (5-15); BUN 49 mg/dL (7-18); BUN/Creat Ratio 21.5 RATIO (10-20); Calcium,Total 8.6 mg/dL (8.5-10.1); Chloride 104 mmol/L (98-107); Creatinine, Serum 2.28 mg/dL (0.70-1.30); EST Glomerular Filtration Rate 30 mL/min (>60); Est Glom Filt Rate - Afr Amer 36 mL/min (>60); Glucose 92 mg/dL (74-106); Potassium 3.7 mmol/L (3.5-5.1); Sodium Level 144 mmol/L (136-145)
[2019-08-05] MEDS: Carvedilol 25 MG Tablet 50 MG PO (09:50)
[2019-08-05] MEDS: Aspirin 81 MG TAB.CHEW PO (09:51)
[2019-08-05] MEDS: Pantoprazole Sodium 20 MG Tablet PO (09:51)
[2019-08-05] MEDS: amLODIPine 10 MG Tablet PO (09:51)
[2019-08-05] MEDS: Furosemide 40 MG/4 ML Vial IV (09:52)
--- NOTE | 2019-08-05 10:00 | DCINST_ITS ---
- Discharge Diagnoses Current Active Problems: Current Active and Chronic Problems (Last Reviewed 05/19/19 @ 09:53 by DARIN Vicente) CHF exacerbation (Acute) Elevated troponin (Acute) Hypoxia (Acute) You will use the following diet at home:: Cardiac - 2-3 grams sodium daily, fluid restriction: 1800 cc per day Your food should be the consistency of: Regular Your liquids should be the consistency of: Regular/Thin Discharge Activity: Return to Normal Activity Additional Instructions: You need a BMP (lab) within 1 week prior to follow up with your doctor, you will need to call your doctor to arrange this. Allergies/Adverse Reactions: Allergies No Known Allergies Allergy (Verified 08/03/19 12:16) Medications to take at Discharge Amlodipine [Norvasc] 10 mg PO DAILY 05/15/16 Atorvastatin Calcium [Lipitor] 80 mg PO DAILY 05/15/16 Doxazosin Mesylate [Cardura] 16 mg PO DAILY 05/15/16 Nitroglycerin [Nitrostat] 0.4 mg SL PRN PRN 05/15/16 hydrALAZINE [Apresoline] 50 mg PO TID 06/27/18 ferrous sulfate 325 mg (65 mg iron) tablet 325 mg PO DAILY 01/16/19 carvedilol 25 mg tablet 50 mg PO BID #180 tab 03/03/19 Ipratropium Hathorne 1 spray NASAL BID 04/07/19 Albuterol Sulfate [Albuterol Sulfate HFA] 08/03/19 Aspirin [Aspirin, Baby] 81 mg PO DAILY 08/03/19 Ezetimibe [Zetia] 10 mg PO DAILY 08/03/19 Multivitamin with Minerals [Multiple Vitamin] 1 tab PO DAILY 08/03/19 Omeprazole 20 mg PO DAILY 08/03/19 Furosemide [Lasix] 60 mg PO BID #180 tab 08/05/19 Potassium Chloride [K-Dur] 20 meq PO BID #60 tab 08/05/19 The following prescriptions were given: Potassium Chloride [K-Dur] 20 meq PO BID #60 tab Transmission Status: Pending to [facility] Furosemide [Lasix] 60 mg PO BID #180 tab Transmission Status: Pending to [facility] Primary Care Physician: Jeremiah Mendoza MD [Primary Care Provider] - Please follow up with your Primary Care Physician in: 1-2 weeks Test Results: Test results from this visit will be discussed in further detail at your follow- up appointment, if applicable. Please Follow Up With: Gris Leal MD When: 2 weeks Proposed Discharge Date: 08/05/19
--- NOTE | 2019-08-05 11:23 | DS.PCM_ITS ---
<Osmel Barragan - Last Filed: 08/05/19 11:23> Discharge Date and Diagnosis - Problem List Patient Problems: Active and Suspected Problems (Last Reviewed 05/19/19 @ 09:53 by Aviva Hilario NP-Shaye) CHF exacerbation (Acute) Elevated troponin (Acute) Hypoxia (Acute) Date of Admission: 08/03/19 Date of Discharge: 08/05/19 - Primary Discharge Diagnosis Acute Problems: Active Problems Acute diastolic CHF exacerbation complicated by pulmonary HTN and renal artery stenosis Chronic hypoxic resp failure 2/2 chronic diastolic CHF 3lpm baseline CKDIII 2/2 FERNANDO Hx widespread arterial dz - Secondary Discharge Diagnosis Chronic Problems: Chronic Problems (Last Reviewed 05/19/19 @ 09:53 by Aviva Hilario NP-Shaye) Pulmonary hypertension (Chronic) RVSP 43 mmHg Gout (Chronic) GERD (gastroesophageal reflux disease) (Chronic) Renal artery stenosis (Chronic) left sided renal artery stent 2003 Chronic kidney disease, stage 3 (Chronic) Stenosis of left subclavian artery (Chronic) CVA (cerebral vascular accident) (Chronic) Anemia in chronic kidney disease (CKD) (Chronic) Stage III chronic kidney disease (Chronic) PND (post-nasal drip) (Chronic) 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) CABG x 4: Sequential BALES-LAD an D1, SVG-OM1, SVG-RPDA 08/14/12 H/O coronary artery bypass surgery (Chronic 08/14/12) CABG x 4: Sequential BALES-LAD an D1, SVG-OM1, SVG-RPDA 08/14/12 Chronic diastolic (congestive) heart failure (Chronic) Bilateral carotid artery stenosis (Chronic) Right CEA 2016, Left Carotid Stented 2003 Transient ischemic attack (Chronic) Paroxysmal atrial flutter (Chronic) Essential (primary) hypertension (Chronic) Hyperlipidemia (Chronic) Peripheral vascular occlusive disease (Chronic) Bilateral iliac stents, left renal artery stent Hospital Course and Treatment Imaging Results: RAD/Chest 1 View (Portable) IMPRESSION: Vascular congestion and mild degree of CHF. Consults: Mel - nephrology Operations: None Procedures: None Summary of Care Provided: Hospital Course: The patient is a 74 year old M with pmhx as above who presented to the ER with c.o progressive SOB and LE edema. He was found to have evidence of CHF on CXR and severely elevated BNP. He was hypoxic on his baseline 3lpm O2 and required 5 lpm initially to maintain good sats. He was placed on IV lasix and admitted to the PCU on tele. No events on tele. He responded well to IV lasix. He was able to be weaned back to his baseline O2. His LE edema resolved completely. 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 Nephrology plans to assess him as an outpatient for possible EFRNANDO stenting, and they felt that this was attributing to his CHF exacerbations. He was discharged home in stable condition and will need follow up with his PCP in 1-2 weeks and with nephrology in 2 weeks. He will need a BMP prior to follow up. This patient was seen by Osmel Barragan PA-C under the supervision of Dr. Batres[] Patient Problems: Active and Suspected Problems (Last Reviewed 05/19/19 @ 09:53 by DARIN Vicente) CHF exacerbation (Acute) Elevated troponin (Acute) Hypoxia (Acute) - Physical Exam Vitals/I&O's: Vital Signs Temp Pulse Resp BP Pulse Ox 98.4 F 61 14 157/41 H 90 08/05/19 09:39 08/05/19 09:39 08/05/19 09:39 08/05/19 09:39 08/05/19 09:48 Oxygen Flow Rate (L/min) [ 3 AMBULATION with Oxygen] Oxygen Flow Rate (L/min) 3 Oxygen Delivery Method Nasal Cannula Weight: 155 lb 10.342 oz Body Mass Index (BMI) 24.3 Intake and Output for Last 24 Hours 08/03/19 08/04/19 08/05/19 23:59 23:59 23:59 Intake Total 240 / 240 790 / 790 50 / 50 Output Total 1300 / 1300 1275 / 1675 1175 / 1175 Balance -1060 / -1060 -485 / -885 -1125 / -1125 General: Alert, Oriented x3, Cooperative HEENT: Atraumatic, PERRLA, EOMI, Normocephalic Neck: Supple, No JVD, Negative Carotid Bruits Lungs: Clear to auscultation, Normal air movement Cardiovascular: Regular rate, No murmurs Abdomen: Bowel Sounds Present, Soft, Non Tender Extremities: No edema, Capillary Refill Less than 3 Seconds Skin: No rashes, No breakdown Musculoskeletal: No Tenderness to Palpation of Joints or Extremities Neurological: Cranial nerves II-XII grossly intact Psych/Mental Status: Normal Affect, Appropriate, Alert and oriented to time, place, person, mood and affect Laboratory Results 08/05/19 05:55: Sodium 144, Potassium 3.7, Chloride 104, Carbon Dioxide 30.0, Anion Gap 10, BUN 49 H, Creatinine 2.28 H, Estim Creat Clear Calc 27.50, Est GFR (MDRD) Af Amer 36 L, Est GFR (MDRD) Non-Af 30 L, BUN/Creatinine Ratio 21.5 H, Glucose 92, Calcium 8.6 08/05/19 05:55: Hgb 8.3 L, Hct 27.6 L Current Medications Acetaminophen (Tylenol) 650 mg PO Q6H PRN PRN PRN Reason: Pain Score 1-10/Temp > 100.7 F Amlodipine Besylate (Norvasc) 10 mg PO DAILY [facility] Last Admin: 08/05/19 09:51 Dose: 10 mg Documented by: Aspirin (Aspirin, Baby) 81 mg PO DAILY@0800 [facility] Last Admin: 08/05/19 09:51 Dose: 81 mg Documented by: Atorvastatin Calcium (Lipitor) 80 mg PO QHS [facility] Last Admin: 08/04/19 21:52 Dose: 80 mg Documented by: Carvedilol (Coreg) 50 mg PO BID [facility] Last Admin: 08/05/19 09:50 Dose: 50 mg Documented by: Doxazosin Mesylate (Cardura) 16 mg PO QHS [facility] Last Admin: 08/04/19 21:51 Dose: 16 mg Documented by: Ezetimibe (Zetia) 10 mg PO QHS [facility] Last Admin: 08/04/19 21:51 Dose: 10 mg Documented by: Ferrous Sulfate (Ferrous Sulfate) 325 mg PO DAILY@1200 [facility] Last Admin: 08/04/19 13:13 Dose: 325 mg Documented by: Furosemide (Lasix) 40 mg IV BID@1000,1800 [facility] Last Admin: 08/05/19 09:52 Dose: 40 mg Documented by: Heparin Sodium (Porcine) (Heparin Na) 5,000 unit SC Q8 [facility] Last Admin: 08/05/19 05:19 Dose: 5,000 unit Documented by: Hydralazine HCl (Apresoline) 50 mg PO TID [facility] Last Admin: 08/05/19 05:19 Dose: 50 mg Documented by: Sodium Chloride () 250 mls @ 15 mls/hr IV .[id number] PRN PRN Reason: Saline Flush Sodium Chloride () 250 mls @ 15 mls/hr IV .[id number] PRN PRN Reason: Additional IVPB Infusion Melatonin (Melatonin) 3 mg PO QHS PRN PRN PRN Reason: INSOMNIA Nitroglycerin (Nitrostat) 0.4 mg SUBLINGUAL PRN PRN PRN Reason: Angina Ondansetron HCl (Zofran) 4 mg IV Q8H PRN PRN PRN Reason: NAUSEA/VOMITING Pantoprazole Sodium (Protonix) 20 mg PO DAILY [facility] Last Admin: 08/05/19 09:51 Dose: 20 mg Documented by: Sodium Chloride () 10 - 40 ml IV UD PRN PRN Reason: SALINE FLUSH Discharge Diet: Low fat/ Low Cholesterol, 1800 Calorie Control Diet, 2000 mg Sodium Diet, - - 1800 cc fluid restriction Discharge Activity: Return to Normal Activity Home Medications: Medications to take at Discharge Amlodipine [Norvasc] 10 mg PO DAILY 05/15/16 Atorvastatin Calcium [Lipitor] 80 mg PO DAILY 05/15/16 Doxazosin Mesylate [Cardura] 16 mg PO DAILY 05/15/16 Nitroglycerin [Nitrostat] 0.4 mg SL PRN PRN 05/15/16 hydrALAZINE [Apresoline] 50 mg PO TID 06/27/18 ferrous sulfate 325 mg (65 mg iron) tablet 325 mg PO DAILY 01/16/19 carvedilol 25 mg tablet 50 mg PO BID #180 tab 03/03/19 Ipratropium [place] 1 spray NASAL BID 04/07/19 Albuterol Sulfate [Albuterol Sulfate HFA] 08/03/19 Aspirin [Aspirin, Baby] 81 mg PO DAILY 08/03/19 Ezetimibe [Zetia] 10 mg PO DAILY 08/03/19 Multivitamin with Minerals [Multiple Vitamin] 1 tab PO DAILY 08/03/19 Omeprazole 20 mg PO DAILY 08/03/19 Furosemide [Lasix] 60 mg PO BID #180 tab 08/05/19 Potassium Chloride [K-Dur] 20 meq PO BID #60 tab 08/05/19 Following Prescrptions Were Given to Patient: Potassium Chloride [K-Dur] 20 meq PO BID #60 tab Transmission Status: Received by [id number] Furosemide [Lasix] 60 mg PO BID #180 tab Transmission Status: Received by [id number] Primary Care Physician: Jeremiah Mendoza MD [Primary Care Provider] - Please follow up with your Primary Care Physician in: 1-2 weeks Please Follow Up With: Gris Leal MD When: 2 weeks Please Follow Up With: Sixto Echeverria NP-C Please Follow Up With: Ian Rogers DO Please Follow Up With: Jeremiah Mendoza MD Disposition: Home Minutes spent on discharge:: 35 Patient Condition:: Stable Medical Necessity - Tobacco Use Smoking Status: Former smoker Tobacco Use: Non-smoker Meaningful Use Info Meaningful Use Diagnoses (Choose all that apply): CHF - CHF ELEAZAR/ARB ordered at discharge?: No Reason ELEAZAR/ARB not ordered?: Worsening renal disease Documented LVEF (%): 55 <Simón Batres - Last Filed: 08/05/19 11:48> Discharge Date and Diagnosis - Primary Discharge Diagnosis Acute Problems: Active Problems (Last Reviewed 05/19/19 @ 09:53 by Aviva Hilario NP-Shaye) CHF exacerbation (Acute) Elevated troponin (Acute) Hypoxia (Acute) - Secondary Discharge Diagnosis Chronic Problems: Chronic Problems (Last Reviewed 05/19/19 @ 09:53 by Aviva Hilario NP-C) Pulmonary hypertension (Chronic) RVSP 43 mmHg Gout (Chronic) GERD (gastroesophageal reflux disease) (Chronic) Renal artery stenosis (Chronic) left sided renal artery stent 2003 Chronic kidney disease, stage 3 (Chronic) Stenosis of left subclavian artery (Chronic) CVA (cerebral vascular accident) (Chronic) Anemia in chronic kidney disease (CKD) (Chronic) Stage III chronic kidney disease (Chronic) PND (post-nasal drip) (Chronic) 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) CABG x 4: Sequential BALES-LAD an D1, SVG-OM1, SVG-RPDA 08/14/12 H/O coronary artery bypass surgery (Chronic 08/14/12) CABG x 4: Sequential BALES-LAD an D1, SVG-OM1, SVG-RPDA 08/14/12 Chronic diastolic (congestive) heart failure (Chronic) Bilateral carotid artery stenosis (Chronic) Right CEA 2017, Left Carotid Stented 2003 Transient ischemic attack (Chronic) Paroxysmal atrial flutter (Chronic) Essential (primary) hypertension (Chronic) Hyperlipidemia (Chronic) Peripheral vascular occlusive disease (Chronic) Bilateral iliac stents, left renal artery stent Hospital Course and Treatment Summary of Care Provided: This patient was seen in conjunction with Osmel Barragan PA-C . I have independently interviewed and examined the patient and reviewed pertinent historical, laboratory, and other data. Please refer to Osmel Barragan PA-C note for details of this patient's presentation, findings, and recommendations. I have reviewed Osmel Barragan PA-C note and concur with documented findings. In brief, patient is a 74-year-old gentleman with multiple comorbidities including chronic hypoxic respiratory failure, COPD CAD who presented with progressive shortness of breath and assessment of acute congestive heart failure made admitted to monitored bed for further management Assessment: 1. Acute chronic hypoxic respiratory failure 2. Acute on chronic congestive heart failure with preserved ejection fraction 3. Chronic hypoxic respiratory failure on baseline home O2 4. COPD 5. CAD status post CABG 6. Peripheral arterial disease with history of stenting of the carotids, carotid endarterectomy, renal artery stent, iliac artery stents, subclavian artery stenosis. 7. Dyslipidemia 8. Chronic kidney disease stage III/IV 9 9. History of previous CVA 9. Paroxysmal atrial flutter 10. Hypertension 11. Gout 12. DVT prophylaxis Hospital course: As documented above - Physical Exam Vitals/I&O's: Vital Signs Temp Pulse Resp BP Pulse Ox 98.4 F 61 14 157/41 H 90 08/05/19 09:39 08/05/19 09:39 08/05/19 09:39 08/05/19 09:39 08/05/19 09:48 Oxygen Flow Rate (L/min) [ 3 AMBULATION with Oxygen] Oxygen Flow Rate (L/min) 3 Oxygen Delivery Method Nasal Cannula Weight: 70.6 kg Body Mass Index (BMI) 24.3 Intake and Output for Last 24 Hours 08/03/19 08/04/19 08/05/19 23:59 23:59 23:59 Intake Total 240 / 240 790 / 790 50 / 50 Output Total 1300 / 1300 1275 / 1675 1175 / 1175 Balance -1060 / -1060 -485 / -885 -1125 / -1125 Laboratory Results 08/05/19 05:55: Sodium 144, Potassium 3.7, Chloride 104, Carbon Dioxide 30.0, Anion Gap 10, BUN 49 H, Creatinine 2.28 H, Estim Creat Clear Calc 27.50, Est GFR (MDRD) Af Amer 36 L, Est GFR (MDRD) Non-Af 30 L, BUN/Creatinine Ratio 21.5 H, Glucose 92, Calcium 8.6 08/05/19 05:55: Hgb 8.3 L, Hct 27.6 L Current Medications Acetaminophen (Tylenol) 650 mg PO Q6H PRN PRN PRN Reason: Pain Score 1-10/Temp > 100.7 F Amlodipine Besylate (Norvasc) 10 mg PO DAILY [facility] Last Admin: 08/05/19 09:51 Dose: 10 mg Documented by: Aspirin (Aspirin, Baby) 81 mg PO DAILY@0800 [facility] Last Admin: 08/05/19 09:51 Dose: 81 mg Documented by: Atorvastatin Calcium (Lipitor) 80 mg PO QHS [facility] Last Admin: 08/04/19 21:52 Dose: 80 mg Documented by: Carvedilol (Coreg) 50 mg PO BID [facility] Last Admin: 08/05/19 09:50 Dose: 50 mg Documented by: Doxazosin Mesylate (Cardura) 16 mg PO QHS [facility] Last Admin: 08/04/19 21:51 Dose: 16 mg Documented by: Ezetimibe (Zetia) 10 mg PO QHS [facility] Last Admin: 08/04/19 21:51 Dose: 10 mg Documented by: Ferrous Sulfate (Ferrous Sulfate) 325 mg PO DAILY@1200 [facility] Last Admin: 08/04/19 13:13 Dose: 325 mg Documented by: Furosemide (Lasix) 40 mg IV BID@1000,1800 [facility] Last Admin: 08/05/19 09:52 Dose: 40 mg Documented by: Heparin Sodium (Porcine) (Heparin Na) 5,000 unit SC Q8 [facility] Last Admin: 08/05/19 05:19 Dose: 5,000 unit Documented by: Hydralazine HCl (Apresoline) 50 mg PO TID [facility] Last Admin: 08/05/19 05:19 Dose: 50 mg Documented by: Sodium Chloride () 250 mls @ 15 mls/hr IV .[id number] PRN PRN Reason: Saline Flush Sodium Chloride () 250 mls @ 15 mls/hr IV .[id number] PRN PRN Reason: Additional IVPB Infusion Melatonin (Melatonin) 3 mg PO QHS PRN PRN PRN Reason: INSOMNIA Nitroglycerin (Nitrostat) 0.4 mg SUBLINGUAL PRN PRN PRN Reason: Angina Ondansetron HCl (Zofran) 4 mg IV Q8H PRN PRN PRN Reason: NAUSEA/VOMITING Pantoprazole Sodium (Protonix) 20 mg PO DAILY [facility] Last Admin: 08/05/19 09:51 Dose: 20 mg Documented by: Sodium Chloride () 10 - 40 ml IV UD PRN PRN Reason: SALINE FLUSH Inpatient E&M: 13225 Disch Hosp
--- NOTE | 2019-08-05 12:02 | PCM.CONS.R ---
Problem List (1) Chronic kidney disease, stage 3 Status: Chronic Consultation - Renal 08/05/19 PCP/ Referring MD: Requesting physician: [] Primary care physician: Dr. Jeremiah Mendoza MD Reason for Consultation:: ckd - History of Present Illness History of Present Illness: The patient is a 74 year old M who was admitted to the hospital about 2 days ago with this of breath. Chest x-ray showed pulmonary edema. He was given IV Lasix 40 mg IV twice daily. Feels better today. On review of prior records his baseline creatinine has ranged between 1.6-2 over the last few weeks. Denies any urinary complaints. Known history of extensive atherosclerosis including carotid artery stenosis, renal artery stenosis. Blood pressure has been fairly high over the last few months. Currently on 4 different blood pressure medications and Lasix. Denies taking any NSAIDs. He apparently has seen 1 of my associates in the past. - Allergies Allergies: Allergies No Known Allergies Allergy (Verified 08/03/19 12:16) - Current Medications Current Medications: Current Medications Acetaminophen (Tylenol) 650 mg PO Q6H PRN PRN PRN Reason: Pain Score 1-10/Temp > 100.7 F Amlodipine Besylate (Norvasc) 10 mg PO DAILY [facility] Last Admin: 08/05/19 09:51 Dose: 10 mg Documented by: Aspirin (Aspirin, Baby) 81 mg PO DAILY@0800 [facility] Last Admin: 08/05/19 09:51 Dose: 81 mg Documented by: Atorvastatin Calcium (Lipitor) 80 mg PO QHS [facility] Last Admin: 08/04/19 21:52 Dose: 80 mg Documented by: Carvedilol (Coreg) 50 mg PO BID [facility] Last Admin: 08/05/19 09:50 Dose: 50 mg Documented by: Doxazosin Mesylate (Cardura) 16 mg PO QHS [facility] Last Admin: 08/04/19 21:51 Dose: 16 mg Documented by: Ezetimibe (Zetia) 10 mg PO QHS [facility] Last Admin: 08/04/19 21:51 Dose: 10 mg Documented by: Ferrous Sulfate (Ferrous Sulfate) 325 mg PO DAILY@1200 [facility] Last Admin: 08/04/19 13:13 Dose: 325 mg Documented by: Furosemide (Lasix) 40 mg IV BID@1000,1800 [facility] Last Admin: 08/05/19 09:52 Dose: 40 mg Documented by: Heparin Sodium (Porcine) (Heparin Na) 5,000 unit SC Q8 [facility] Last Admin: 08/05/19 05:19 Dose: 5,000 unit Documented by: Hydralazine HCl (Apresoline) 50 mg PO TID [facility] Last Admin: 08/05/19 05:19 Dose: 50 mg Documented by: Sodium Chloride () 250 mls @ 15 mls/hr IV .[id number] PRN PRN Reason: Saline Flush Sodium Chloride () 250 mls @ 15 mls/hr IV .[id number] PRN PRN Reason: Additional IVPB Infusion Melatonin (Melatonin) 3 mg PO QHS PRN PRN PRN Reason: INSOMNIA Nitroglycerin (Nitrostat) 0.4 mg SUBLINGUAL PRN PRN PRN Reason: Angina Ondansetron HCl (Zofran) 4 mg IV Q8H PRN PRN PRN Reason: NAUSEA/VOMITING Pantoprazole Sodium (Protonix) 20 mg PO DAILY [facility] Last Admin: 08/05/19 09:51 Dose: 20 mg Documented by: Sodium Chloride () 10 - 40 ml IV UD PRN PRN Reason: SALINE FLUSH - Past Medical History Past Medical History (Chronic Problems): Chronic Problems (Last Reviewed 05/19/19 @ 09:53 by Aviva Hilario, CORIN-C) Pulmonary hypertension (Chronic) RVSP 43 mmHg Gout (Chronic) GERD (gastroesophageal reflux disease) (Chronic) Renal artery stenosis (Chronic) left sided renal artery stent 2003 Chronic kidney disease, stage 3 (Chronic) Stenosis of left subclavian artery (Chronic) CVA (cerebral vascular accident) (Chronic) Anemia in chronic kidney disease (CKD) (Chronic) Stage III chronic kidney disease (Chronic) PND (post-nasal drip) (Chronic) Atherosclerosis of coronary artery of [place] heart without angina pectoris (Chronic) CABG x 4: Sequential BALES-LAD an D1, SVG-OM1, SVG-RPDA 08/14/12 H/O coronary artery bypass surgery (Chronic 08/14/12) CABG x 4: Sequential BALES-LAD an D1, SVG-OM1, SVG-RPDA 08/14/12 Chronic diastolic (congestive) heart failure (Chronic) Bilateral carotid artery stenosis (Chronic) Right CEA 2016, Left Carotid Stented 2003 Transient ischemic attack (Chronic) Paroxysmal atrial flutter (Chronic) Essential (primary) hypertension (Chronic) Hyperlipidemia (Chronic) Peripheral vascular occlusive disease (Chronic) Bilateral iliac stents, left renal artery stent - Past Surgical History Surgical History: angioplasty, coronary bypass surgery, total knee arthroplasty, - - CEA, renal artery stent - Social History Smoking Status: Former smoker Alcohol: Occasional Drugs: None - Family History Maternal Family History: Family History (Last Reviewed 08/03/19 @ 16:02 by ELVIN Murdock) Son CAD (coronary artery disease) Brother CAD (coronary artery disease) Diabetes Brother CAD (coronary artery disease) Diabetes History Items: - - Patient notes no marked maternal family history including heart disease, diabetes, cancer. Paternal Family History: Family History (Last Reviewed 08/03/19 @ 16:02 by ELVIN Murdock) Son CAD (coronary artery disease) Brother CAD (coronary artery disease) Diabetes Brother CAD (coronary artery disease) Diabetes History Items: Heart Disease, Hypertension Review of Systems Constitutional: Denies: Chills, Fever, Weight Change HEENT: Denies: Head Aches, Sinus Congestion, Sinus Drainage Cardiovascular: Denies: Chest Pain, Palpitations Respiratory: Denies: Cough, Shortness of breath at rest, Sputum production Gastrointestinal: Denies: Abdominal Pain, Nausea, Vomiting Genitourinary: Denies: Dysuria Musculoskeletal: Denies: Joint Pain, Joint Tenderness Skin: Denies: Rash, Wounds Neurological: Denies: Numbness, Tingling, Focal weakness Psychiatric: Denies: Anxiety, Depression, Homicidal Ideations, Suicidal Ideations Hematologic/ Lymphatic: Denies: Easy Bruising, Easy Bleeding Patient Problems: Active and Suspected Problems (Last Reviewed 05/19/19 @ 09:53 by Aviva Hilario NP-C) CHF exacerbation (Acute) Elevated troponin (Acute) Hypoxia (Acute) - Physical Exam Vitals/I&O's: Vital Signs Temp Pulse Resp BP Pulse Ox 98.4 F 61 14 157/41 H 90 08/05/19 09:39 08/05/19 09:39 08/05/19 09:39 08/05/19 09:39 08/05/19 09:48 Oxygen Flow Rate (L/min) [ 3 AMBULATION with Oxygen] Oxygen Flow Rate (L/min) 3 Oxygen Delivery Method Nasal Cannula Weight: 70.6 kg Body Mass Index (BMI) 24.3 Intake and Output for Last 24 Hours 08/03/19 08/04/19 08/05/19 23:59 23:59 23:59 Intake Total 240 / 240 790 / 790 50 / 50 Output Total 1300 / 1300 1275 / 1675 1175 / 1175 Balance -1060 / -1060 -485 / -885 -1125 / -1125 General: Alert, Oriented x3, Cooperative HEENT: Atraumatic, PERRLA, EOMI, Normocephalic Neck: Supple, No JVD, Negative Carotid Bruits Lungs: Clear to auscultation, Normal air movement Cardiovascular: Regular rate, No murmurs Abdomen: Bowel Sounds Present, Soft, Non Tender Extremities: No edema, Capillary Refill Less than 3 Seconds Skin: No rashes, No breakdown Musculoskeletal: No Tenderness to Palpation of Joints or Extremities Neurological: Cranial nerves II-XII grossly intact Psych/Mental Status: Normal Affect, Appropriate Laboratory Results 08/05/19 05:55: Sodium 144, Potassium 3.7, Chloride 104, Carbon Dioxide 30.0, Anion Gap 10, BUN 49 H, Creatinine 2.28 H, Estim Creat Clear Calc 27.50, Est GFR (MDRD) Af Amer 36 L, Est GFR (MDRD) Non-Af 30 L, BUN/Creatinine Ratio 21.5 H, Glucose 92, Calcium 8.6 08/05/19 05:55: Hgb 8.3 L, Hct 27.6 L Current Medications Acetaminophen (Tylenol) 650 mg PO Q6H PRN PRN PRN Reason: Pain Score 1-10/Temp > 100.7 F Amlodipine Besylate (Norvasc) 10 mg PO DAILY [facility] Last Admin: 08/05/19 09:51 Dose: 10 mg Documented by: Aspirin (Aspirin, Baby) 81 mg PO DAILY@0800 [facility] Last Admin: 08/05/19 09:51 Dose: 81 mg Documented by: Atorvastatin Calcium (Lipitor) 80 mg PO QHS [facility] Last Admin: 08/04/19 21:52 Dose: 80 mg Documented by: Carvedilol (Coreg) 50 mg PO BID [facility] Last Admin: 08/05/19 09:50 Dose: 50 mg Documented by: Doxazosin Mesylate (Cardura) 16 mg PO QHS [facility] Last Admin: 08/04/19 21:51 Dose: 16 mg Documented by: Ezetimibe (Zetia) 10 mg PO QHS [facility] Last Admin: 08/04/19 21:51 Dose: 10 mg Documented by: Ferrous Sulfate (Ferrous Sulfate) 325 mg PO DAILY@1200 [facility] Last Admin: 08/04/19 13:13 Dose: 325 mg Documented by: Furosemide (Lasix) 40 mg IV BID@1000,1800 [facility] Last Admin: 08/05/19 09:52 Dose: 40 mg Documented by: Heparin Sodium (Porcine) (Heparin Na) 5,000 unit SC Q8 [facility] Last Admin: 08/05/19 05:19 Dose: 5,000 unit Documented by: Hydralazine HCl (Apresoline) 50 mg PO TID [facility] Last Admin: 08/05/19 05:19 Dose: 50 mg Documented by: Sodium Chloride () 250 mls @ 15 mls/hr IV .[id number] PRN PRN Reason: Saline Flush Sodium Chloride () 250 mls @ 15 mls/hr IV .[id number] PRN PRN Reason: Additional IVPB Infusion Melatonin (Melatonin) 3 mg PO QHS PRN PRN PRN Reason: INSOMNIA Nitroglycerin (Nitrostat) 0.4 mg SUBLINGUAL PRN PRN PRN Reason: Angina Ondansetron HCl (Zofran) 4 mg IV Q8H PRN PRN PRN Reason: NAUSEA/VOMITING Pantoprazole Sodium (Protonix) 20 mg PO DAILY [facility] Last Admin: 08/05/19 09:51 Dose: 20 mg Documented by: Sodium Chloride () 10 - 40 ml IV UD PRN PRN Reason: SALINE FLUSH Assessment/Plan All Active Problems (Last Reviewed 05/19/19 @ 09:53 by Aviva Hilario, CORIN-C) CHF exacerbation (Acute) Elevated troponin (Acute) Hypoxia (Acute) History of knee replacement (Resolved) H/O colonoscopy (Resolved) Respiratory failure with hypoxia (Resolved) History of right-sided carotid endarterectomy (Resolved 05/2016) History of herniorrhaphy (Resolved) History of left heart catheterization (Resolved 08/13/12) History of angioplasty of peripheral vessel (Resolved) History of stent insertion of renal artery (Resolved 2003) History of left common carotid artery stent placement (Resolved 2003) H/O basal cell carcinoma excision (Resolved 09/2018) CKD stage III closing on 4. Most recent creatinine is around 2.0-2.2. Last year it was around 1.6 or so. We will check further CKD work-up as outpatient. Most likely elevated creatinine is related to fluid issues. Dyspnea. Echocardiogram from earlier this year shows slightly decreased EF, elevated RVSP. Currently volume status looks acceptable. Can go home on current dose of diuretics. Renal artery stenosis. He had a remote history of renal artery stenting more than 10 years ago. Could not remember who did it. I see a renal Doppler from June 2018 which showed 60 to 99% stenosis in both kidneys. I do see a note from Dr. Douglas in July 2018 but no procedures were done. I will reach out to Dr. Douglas again to see a renal angioplasty is feasible. He does have extensive atherosclerotic vessel stenosis. I believe he has several manifestation including flash pulmonary edema, uncontrolled hypertension, CKD from renal artery stenosis. Hypertension. Likely some component of renal artery stenosis. Might benefit from renal angioplasty All questions answered Discussed with hospitalist service Sent a message to Dr. Douglas via [employer]
--- NOTE | 2019-08-06 15:36 | CASEMGMT ---
JEROD HART Discharge F/U Phone Call LACE: 12 Strata: 3 Discharge date: 08/05/2019 Call date: 08/06/2019 Call time: [id number] Admission dx: CHF w/ pulm HTN Pt states has been 'doing ok' since discharge. Pt states no questions regarding discharge instructions/medications at this time. Pt states has f/u appts and plans to keep them. Pt voices no suggestions for [facility] at this time. Pt voices no further questions/concerns/needs at this time. [place] JEROD HART
== END 2019-08-05 12:56 | disposition home or self-care (01) | DRG 291 ==
LOC: ED 14:50 → PCU 15:56
PROVIDERS: Physician Assistant; Admitting Provider Family Medicine; Emergency Provider Emergency Medicine; PCP Family Medicine; Visit Provider Internal Medicine
DX: I50.33 Acute on chronic diastolic (congestive) heart failure (principal); J96.21 Acute and chronic respiratory failure with hypoxia; I48.92 Unspecified atrial flutter; I27.20 Pulmonary hypertension, unspecified; N18.3 Chronic kidney disease, stage 3 (moderate); K21.9 Gastro-esophageal reflux disease without esophagitis; I70.1 Atherosclerosis of renal artery; Z86.73 Personal history of transient ischemic attack (TIA), and cerebral infarction without residual deficits; D63.1 Anemia in chronic kidney disease; I25.10 Atherosclerotic heart disease of native coronary artery without angina pectoris; Z95.1 Presence of aortocoronary bypass graft; I48.0 Paroxysmal atrial fibrillation; E78.5 Hyperlipidemia, unspecified; Z87.891 Personal history of nicotine dependence; Z99.81 Dependence on supplemental oxygen; M19.90 Unspecified osteoarthritis, unspecified site; Z79.899 Other long term (current) drug therapy; Z79.82 Long term (current) use of aspirin; I77.1 Stricture of artery; I70.8 Atherosclerosis of other arteries; M10.9 Gout, unspecified; J44.9 Chronic obstructive pulmonary disease, unspecified; I73.9 Peripheral vascular disease, unspecified
CPT/HCPCS: 36415; 71045; 80048; 83880; 84484; 85014; 85018; 85025; 93005; 99283; A4216; J1940

== ENCOUNTER 2019-08-25 02:05 | Inpatient (IN) | payer MEDICARE, OTHER, SELFPAY ==
[2019-08-11 14:47] VITALS: BMI 24.3
[2019-08-25] VITALS (11 sets, daily range): BP systolic 148–181; BP diastolic 45–86; PULSE 51–66; RESP 16–22; TEMP 36.3–36.8; O2SAT 92–97; BMI 24.0; BMI 24.2; BMI 72.2
--- NOTE | 2019-08-25 02:22 | EKG12_ITS ---
Test Reason : ABD PAIN Blood Pressure : / mmHG Vent. Rate : 058 BPM Atrial Rate : 058 BPM P-R Int : 216 ms QRS Dur : 104 ms QT Int : 486 ms P-R-T Axes : 069 040 166 degrees QTc Int : 477 ms Sinus bradycardia with 1st degree A-V block Left ventricular hypertrophy with repolarization abnormality Abnormal ECG Confirmed by ARELY JONES ([id number]), acquisition editor UFENTES MUELLER ([id number]) on 09/01/2019 8:17:29 AM Referred By: Confirmed By:ARELY JONES
--- NOTE | 2019-08-25 02:22 | CT_ITS ---
STUDY: CT ABDOMEN AND PELVIS WITHOUT CONTRAST REASON FOR EXAM: Male, 74 years old. ABDOMEN PAIN SINCE 10 PM LAST NIGHT -- HX: CKD STAGE 3,GERD,GOUT,TIA,HLD,CAD,CHF,OK,RENAL -- ARTERY STENOSIS -- PRIOR CABG X 4 RADIATION DOSAGE (If Supplied By Facility): CTDIvol = ( 6.44 ) mGy, DLP = ( 318.73 ) mGycm TECHNIQUE: Transaxial images were obtained from the dome of the diaphragm to the symphysis pubis without oral contrast, and without intravenous contrast. Sagittal and coronal images were reconstructed. Individualized dose optimization techniques were used for this CT. COMPARISON: April 07, 2019 CT scan chest FINDINGS: There are persistent moderate volume bilateral effusions. There is persistent interstitial thickening minimal right lower lobe atelectasis. There is mild to moderate cardiac enlargement. There is partial visualization of coronary artery calcification. Normal liver. Normal gallbladder and extrahepatic biliary system. Normal spleen. Normal pancreas. Normal bilateral adrenal glands. There is central hilar vascular calcifications. There is no evidence of hydronephrosis. There are vascular calcifications. No evidence of hydronephrosis. There is a small hiatal hernia. Distended loop of small bowel left upper quadrant. There is mild to moderate stool in the colon. There is diverticulosis. There is a trace focus of inflammatory change within the left lower quadrant is an adjacent left-sided inguinal lymph node measuring 1.1 cm. There is non-visualization of the appendix. There is dense calcification of the aorta. There is a left-sided renal artery stent. There is moderate to severe aortic stenosis the lumen measures 5.4 mm. There is a right-sided external iliac artery stent. There is a suggestion of stent with possible collapse of the left side external carotid artery and bifurcation. Bilateral Normal inferior vena cava. Normal retroperitoneum. The bladder is distended. There is mild enlargement of the prostate gland. There is a small umbilical hernia containing fat. There are diffuse degenerative changes of the visualized lumbar spine. CT/Abdomen/Pelvis without Cont IMPRESSION: Persistent moderate volume effusions atelectasis. Cardiomegaly. Diverticulosis. Minimal inflammatory change adjacent to the distal descending colon which may represent a small focus of mild colitis or diverticulitis. There is a distended loop of bowel within the left upper quadrant suggestive of possible enteritis or mild focal ileus, see image 77 axial views.. Reactive inguinal lymphadenopathy. Moderate aortic stenosis. Electronically Signed: Carly Holley MD at 3:52 EDT Tel , Service support ,
--- NOTE | 2019-08-25 02:25 | ED.DCSUM_ITS ---
- ER Visit Summary Date of Service: 08/25/19 Chief Complaint: Abdominal pain History of Present Illness: The patient is a 74 M presenting with abdominal pain. Patient states this started this evening around 10:30 PM. Pain has gradually worsened. Pain is in the upper abdomen. He denies eating fatty or gr easy foods this evening. Denies fever. Denies chest pain or shortness of breath. Physical Examination: Vitals are stable. Patient is afebrile. Alert no acute distress. HEENT exam is unremarkable. Neck is supple. Lungs are clear and equal bilaterally. Heart is regular rate and rhythm. Abdomen is soft right upper and left upper quadrant tenderness with voluntary guarding, no rebound Extremities are unremarkable. Skin is warm and dry. No focal neurologic deficit. Remainder of exam is unremarkable. Emergency Department Course and Treatment: Patient was given morphine, Zofran IV. CBC normal except hemoglobin 9.8. Chemistries show glucose 124, BUN 50, creatinine 2.03. Alk phos 145. Lipase 113. Urinalysis unremarkable. Chest x- ray shows bilateral effusions. CT abdomen pelvis shows persistent moderate volume effusions atelectasis. Cardiomegaly. Diverticulosis. Minimal inflammatory change adjacent to the distal descending colon which may represent a small focus of mild colitis or diverticulitis. There is a distended loop of bowel within the left upper quadrant suggestive of possible enteritis or mild focal ileus, see image 77 axial views. Reactive inguinal lymphadenopathy. Moderate aortic stenosis. Patient continues to have pain although it is improved. He was given Cipro, Flagyl IV. Discussed with the hospitalist for admission. Disposition: Admission Impression: Diverticulitis, bilateral pleural effusion This note was generated with [employer] dictation software. It may contain incorrect words, spelling, and punctuation that were not noted in review of the chart prior to signing ED Disposition - Plan for ED Patient:
[2019-08-25] MEDS: Morphine 4 MG/ML Syringe IV (02:31)
[2019-08-25] MEDS: Ondansetron 4 MG/2 ML Vial IV (02:31)
[2019-08-25 02:33] LABS: Absolute Lymphocyte Count 0.78 X10^3/uL (0.83-4.51); Absolute Neutrophil Count 7.6 X10^3/uL (2.0-7.7); Basophil# 0.05 X10^3/uL; Basophil% 0.5 % (0-1); Eosinophils% 2.1 % (0-5); Hematocrit 33.3 % (40-54); Hemoglobin 9.8 g/dL (13.0-16.5); Lymphocyte # 0.78 X10^3/ul (4.0); Lymphocyte % 8.3 % (19-41); Mean Corp Hgb Conc 29.4 g/dL (32-36); Mean Corpuscular Hgb 26.4 pg (27.0-32.0); Mean Corpuscular Volume 89.8 fL (80-94); Mean Platelet Vol. 10.2 fl (6.2-12.0); Monocyte# 0.73 X10^3/uL; Monocyte% 7.8 % (0-10); NRBC Flagged by Analyzer 0 % (0-5); Neutrophil # 7.58 X10^3/uL (2.7-7.7); Neutrophil % 80.7 % (47-70); Platelet Count 197 K/mm3 (150-450); RBC Distribution Width CV 19.3 % (11.6-14.6); RBC Distribution Width SD 62.9 fl (35.1-43.9); Red Blood Count 3.71 M/mm3 (4.6-6.2); White Blood Count 9.4 K/mm3 (4.4-11.0)
[2019-08-25 02:51] LABS: ALB/GLOB Ratio 0.8 RATIO (0.9-2.4); AST(SGOT) 25 U/L (15-37); Alanine Aminotransfer ALT/SGPT 29 U/L (16-61); Albumin, Serum 3.3 g/dL (3.2-5.0); Alkaline Phosphatase 145 U/L (45-117); Anion Gap 8 (5-15); BUN 50 mg/dL (7-18); BUN/Creat Ratio 24.6 RATIO (10-20); Calcium,Total 8.9 mg/dL (8.5-10.1); Chloride 106 mmol/L (98-107); Creatinine, Serum 2.03 mg/dL (0.70-1.30); EST Glomerular Filtration Rate 34 mL/min (>60); Est Glom Filt Rate - Afr Amer 42 mL/min (>60); Estimated Creatinine Clearance 30.89 ml/min; Globulin 4.3 g/dL (2.2-4.2); Glucose 124 mg/dL (74-106); Lipase 113 U/L (73-393); Potassium 3.9 mmol/L (3.5-5.1); Protein, Total 7.6 g/dL (6.4-8.2); Sodium Level 142 mmol/L (136-145)
--- NOTE | 2019-08-25 03:18 | RAD_ITS ---
STUDY: X-RAY CHEST REASON FOR EXAM: Male, 74 years old. SOB TECHNIQUE: Single AP portable view of the chest. COMPARISON: August 03, 2019 chest x-ray, April 08, 2019 chest x-ray FINDINGS: Impression shows postoperative change in the right-sided neck soft tissue. There is a stent in left side neck. There is a persistent pattern of interstitial thickening blunting the costophrenic angles. Hazy appearance of the lungs. Sternal cerclage wires are present from a prior sternotomy. Normal mediastinum and memo. Normal visualized pulmonary arteries. Normal visualized aortic arch and descending thoracic aorta. There are diffuse degenerative changes of the visualized thoracic spine. Normal visualized ribs, clavicles, and shoulders. There is no demonstrated abnormality of the visualized soft tissue structures of the upper abdomen. RAD/Chest 1 View (Portable) IMPRESSION: Persistent bilateral effusions, atelectasis underlying chronic lung disease. Status post sternotomy, mild cardiomegaly. Electronically Signed: Carly Holley MD at 4:03 EDT Tel , Service support ,
[2019-08-25 03:33] LABS: Bacteria 0 SEEN /hpf (None Seen); Mucous, Urine 0 SEEN /hpf (<or=2+); Red Blood Cells-Urine 0 SEEN /hpf (0-5); Squamous Epithelial Cells - UA 0 SEEN /hpf (0-5)
[2019-08-25 03:52] LABS: Color, Urine Yellow (Yellow); Glucose, Dipstick Normal (Normal); Ketone-Dipstick Negative (Negative); Leukocyte Esterase-Dipstick Negative /ul (Negative); Nitrite-Dipstick Negative (Negative); Occult Blood-Urine Negative /ul (Negative); Protein-Dipstick 30 mg/dl (Negative); Urine Bilirubin Dipstick Negative (Negative); Urine Clarity Clear (Clear); Urine Urobilinogen Normal (Normal)
[2019-08-25 03:58] LABS: White Blood Cells 0-5 SEEN /hpf (0-5)
--- NOTE | 2019-08-25 05:02 | HP.PCM_ITS ---
Problem List (1) Pulmonary hypertension Status: Chronic Comment: RVSP 43 mmHg (2) History of knee replacement Status: Resolved (3) GERD (gastroesophageal reflux disease) Status: Chronic Qualifiers: (4) History of right-sided carotid endarterectomy Status: Resolved (5) History of herniorrhaphy Status: Resolved (6) History of left heart catheterization Status: Resolved (7) Renal artery stenosis Status: Chronic Comment: left sided renal artery stent 2003 (8) Chronic kidney disease, stage 3 Status: Chronic (9) History of angioplasty of peripheral vessel Status: Resolved Comment: Bilateral iliac stents (10) History of stent insertion of renal artery Status: Resolved Comment: 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, and 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 IN [employer]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 AND SAFETY 2004 (11) Anemia in chronic kidney disease (CKD) Status: Chronic (12) H/O coronary artery bypass surgery Status: Chronic Comment: CABG x 4: Sequential BALES-LAD an D1, SVG-OM1, SVG- RPDA 08/14/12 (13) Chronic diastolic (congestive) heart failure Status: Chronic (14) Bilateral carotid artery stenosis Status: Chronic Comment: Right CEA 2016, Left Carotid Stented 2003 (15) Paroxysmal atrial flutter Status: Chronic (16) Essential (primary) hypertension Status: Chronic (17) Hyperlipidemia Status: Chronic Qualifiers: (18) Diverticulitis Status: Acute History of Present Illness Date of Admission: 08/25/19 Chief Complaint: abdominal pain The patient is a 74 year old patient with a past medical history of coronary artery disease, hypertension, congestive heart failure who presents to the emergency room with a chief complaint of abdominal pain. The onset of this pain began at 10:30 PM last evening and was 8/10 in nature associated with nausea but no vomiting. He points to the mid abdomen on both the left and right side when describing the location of his pain that is nonradiating. CT scan abdomen reveals an area on the left side consistent with diverticulitis. The patient states that after receiving morphine in the emergency room his pain is decreased considerably and he is more comfortable. Laboratory findings are consistent with his chronic conditions but no acute changes are noted. He will be admitted for further treatment of his diverticulitis. Of note the patient does have chronic pleural effusions and is on Lasix for this and was hospitalized in this past August for an exacerbation of his congestive heart failure. Past Medical History Past Medical History (Chronic Problems): Chronic Problems (Last Reviewed 08/11/19 @ 14:45 by Zofia Mike) Pulmonary hypertension (Chronic) RVSP 43 mmHg Gout (Chronic) GERD (gastroesophageal reflux disease) (Chronic) Renal artery stenosis (Chronic) left sided renal artery stent 2003 Chronic kidney disease, stage 3 (Chronic) Stenosis of left subclavian artery (Chronic) CVA (cerebral vascular accident) (Chronic) Anemia in chronic kidney disease (CKD) (Chronic) Stage III chronic kidney disease (Chronic) PND (post-nasal drip) (Chronic) Atherosclerosis of coronary artery of [place] heart without angina pectoris (Chronic) CABG x 4: Sequential BALES-LAD an D1, SVG-OM1, SVG-RPDA 08/14/12 H/O coronary artery bypass surgery (Chronic 08/14/12) CABG x 4: Sequential BALES-LAD an D1, SVG-OM1, SVG-RPDA 08/14/12 Chronic diastolic (congestive) heart failure (Chronic) Bilateral carotid artery stenosis (Chronic) Right CEA 2016, Left Carotid Stented 2003 Transient ischemic attack (Chronic) Paroxysmal atrial flutter (Chronic) Essential (primary) hypertension (Chronic) Hyperlipidemia (Chronic) Peripheral vascular occlusive disease (Chronic) Bilateral iliac stents, left renal artery stent Medical History: Medical History (Last Reviewed 08/11/19 @ 14:45 by Zofia Mike) Respiratory failure with hypoxia (Resolved) J96.91 Gout (Chronic) M10.9 GERD (gastroesophageal reflux disease) (Chronic) K21.9 Renal artery stenosis (Chronic) I70.1 left sided renal artery stent 2003 Chronic kidney disease, stage 3 (Chronic) N18.3 Stenosis of left subclavian artery (Chronic) I77.1 CVA (cerebral vascular accident) (Chronic) I63.9 Anemia in chronic kidney disease (CKD) (Chronic) N18.9, D63.1 Atherosclerosis of coronary artery of [place] heart without angina pectoris (Chronic) I25.10 CABG x 4: Sequential BALES-LAD an D1, SVG-OM1, SVG-RPDA 08/14/12 Chronic diastolic (congestive) heart failure (Chronic) I50.32 Bilateral carotid artery stenosis (Chronic) I65.23 Right CEA 2016, Left Carotid Stented 2003 Transient ischemic attack (Chronic) G45.9 Paroxysmal atrial flutter (Chronic) I48.92 Essential (primary) hypertension (Chronic) I10 Hyperlipidemia (Chronic) E78.5 Peripheral vascular occlusive disease (Chronic) I73.9 Bilateral iliac stents, left renal artery stent Arthritis M19.90 Allergies No Known Allergies Allergy (Verified 08/25/19 02:15) Home Medications: Ambulatory Orders Medication Instructions Recorded Amlodipine [Norvasc] 10 mg PO DAILY 05/15/16 Atorvastatin Calcium [Lipitor] 80 mg PO DAILY 05/15/16 Doxazosin Mesylate [Cardura] 16 mg PO DAILY 05/15/16 Nitroglycerin [Nitrostat] 0.4 mg SL PRN PRN 05/15/16 hydrALAZINE [Apresoline] 50 mg PO TID 06/27/18 ferrous sulfate 325 mg (65 mg 325 mg PO DAILY 01/16/19 iron) tablet carvedilol 25 mg tablet 50 mg PO BID #180 tab 03/03/19 Ipratropium Royal 1 spray NASAL BID 04/07/19 Albuterol Sulfate [Albuterol 08/03/19 Sulfate HFA] Aspirin [Aspirin, Baby] 81 mg PO DAILY 08/03/19 Ezetimibe [Zetia] 10 mg PO DAILY 08/03/19 Multivitamin with Minerals 1 tab PO DAILY 08/03/19 [Multiple Vitamin] Omeprazole 20 mg PO DAILY 08/03/19 Furosemide [Lasix] 60 mg PO BID #180 tab 08/05/19 Potassium Chloride [K-Dur] 20 meq PO BID #60 tab 08/05/19 Surgical History: Surgical History (Last Reviewed 08/11/19 @ 14:45 by Zofia Mike) History of knee replacement (Resolved) Z96.659 H/O colonoscopy (Resolved) Z98.890 2009-repeat 2019 History of right-sided carotid endarterectomy (Resolved) Onset Date: 05/2016 Z98.890 History of herniorrhaphy (Resolved) Z98.890, Z87.19 History of left heart catheterization (Resolved) Onset Date: 08/13/12 Z98.890 History of angioplasty of peripheral vessel (Resolved) Z98.62 Bilateral iliac stents History of stent insertion of renal artery (Resolved) Onset Date: 2003 Z98.890 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, and 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 IN [employer]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 AND SAFETY 2004 History of left common carotid artery stent placement (Resolved) Onset Date: 2003 Z98.890, Z95.828 H/O basal cell carcinoma excision (Resolved) Onset Date: 09/2018 Z98.890, Z85.828 H/O coronary artery bypass surgery (Chronic) Onset Date: 08/14/12 Z95.1 CABG x 4: Sequential BALES-LAD an D1, SVG-OM1, SVG-RPDA 08/14/12 Surgical History: angioplasty, coronary bypass surgery, total knee arthroplasty, - - CEA, renal artery stent Psychiatric History: No pertinent psych hx Smoking Status: Former smoker - *Family History Maternal Family History: Family History (Last Reviewed 08/11/19 @ 14:45 by Zofia Mike) Son CAD (coronary artery disease) Brother CAD (coronary artery disease) Diabetes Brother CAD (coronary artery disease) Diabetes History Items: - - Patient notes no marked maternal family history including heart disease, diabetes, cancer. Paternal Family History: Family History (Last Reviewed 08/11/19 @ 14:45 by Zofia Mike) Son CAD (coronary artery disease) Brother CAD (coronary artery disease) Diabetes Brother CAD (coronary artery disease) Diabetes History Items: Heart Disease, Hypertension Review of Systems Constitutional: Denies: Chills, Fever, Weight Change HEENT: Denies: Head Aches, Sinus Congestion, Sinus Drainage Cardiovascular: Denies: Chest Pain, Palpitations Respiratory: Denies: Cough, Shortness of breath at rest, Sputum production Gastrointestinal: Reports: Abdominal Pain, Nausea. Denies: Vomiting Genitourinary: Denies: Dysuria Musculoskeletal: Denies: Joint Pain, Joint Tenderness Skin: Denies: Rash, Wounds Neurological: Denies: Numbness, Tingling, Focal weakness Psychiatric: Denies: Anxiety, Depression, Homicidal Ideations, Suicidal Ideations Hematologic/ Lymphatic: Denies: Easy Bruising, Easy Bleeding VTE Information - Inpt Only VTE Present on Admission: No VTE Mechan Device Prophylaxis: SCD's VTE Pharm Prophylaxis ordered?: No Patient Problems: Active and Suspected Problems (Last Reviewed 08/11/19 @ 14:45 by Zofia Mike) Diverticulitis (Acute) - Physical Exam Vitals/I&O's: Vital Signs Temp Pulse Resp BP Pulse Ox 97.7 F L 55 L 20 H 170/56 H 93 08/25/19 03:48 08/25/19 04:41 08/25/19 04:41 08/25/19 04:41 08/25/19 04:41 Oxygen Flow Rate (L/min) 3 Oxygen Delivery Method Nasal Cannula Weight: 158 lb 8.198 oz Body Mass Index (BMI) 24.0 Intake and Output for Last 24 Hours 08/23/19 08/24/19 08/25/19 23:59 23:59 23:59 Intake Total 500 / 500 Balance 500 / 500 General: Alert, Oriented x3, Cooperative HEENT: Atraumatic, Normocephalic Neck: Supple Lungs: Clear to auscultation, Normal air movement Cardiovascular: Regular rate, Normal S1, Normal S2, No murmurs Abdomen: Hypoactive Bowel Sounds, Distended, Tender - LLQ Extremities: Edema - 1+ lower ext Skin: No rashes Musculoskeletal: No Tenderness to Palpation of Joints or Extremities Neurological: Neuro grossly intact Psych/Mental Status: Normal Affect, Appropriate Laboratory Results 08/25/19 02:20: WBC 9.4, RBC 3.71 L, Hgb 9.8 L, Hct 33.3 L, MCV 89.8, MCH 26.4 L , MCHC 29.4 L, RDW Std Deviation 62.9 H, RDW Coeff of Lisa 19.3 H, Plt Count 197, MPV 10.2, Immature Gran % (Auto) 0.600, Neut % (Auto) 80.7 H, Lymph % (Auto) 8.3 L, [place] % (Auto) 7.8, Eos % (Auto) 2.1, Baso % (Auto) 0.5, Absolute Neuts (auto) 7.6, Absolute Lymphs (auto) 0.78 L, Nucleated RBC % 0 08/25/19 02:20: Sodium 142, Potassium 3.9, Chloride 106, Carbon Dioxide 28.0, Anion Gap 8, BUN 50 H, Creatinine 2.03 H, Estim Creat Clear Calc 30.89, Est GFR (MDRD) Af Amer 42 L, Est GFR (MDRD) Non-Af 34 L, BUN/Creatinine Ratio 24.6 H, Glucose 124 H, Calcium 8.9, Total Bilirubin 1.00, AST 25, ALT 29, Alkaline Phosphatase 145 H, Total Protein 7.6, Albumin 3.3, Globulin 4.3 H, Albumin/Globulin Ratio 0.8 L, Lipase 113 08/25/19 03:30: Urine Color Yellow, Urine Clarity Clear, Urine pH 5.0, Ur Specific [place] 1.010, Urine Protein 30 H, Urine Glucose (UA) Normal, Urine Ketones Negative, Urine Occult Blood Negative, Urine Nitrite Negative, Urine Bilirubin Negative, Urine Urobilinogen Normal, Ur Leukocyte Esterase Negative, Urine RBC 0 SEEN, Urine WBC 0-5 SEEN, Ur Squamous Epith Cells 0 SEEN, Urine Bacteria 0 SEEN, Urine Mucus 0 SEEN Current Medications Ciprofloxacin (Cipro) 400 mg in 200 mls @ 200 mls/hr IV X1 ONE Stop: 08/25/19 05:51 Metronidazole (Flagyl) 500 mg in 100 mls @ 100 mls/hr IV X1 ONE Stop: 08/25/19 05:51 Assessment/Plan All Active Problems (Last Reviewed 08/11/19 @ 14:45 by Zofia Mike) CHF exacerbation (Acute) Elevated troponin (Acute) Hypoxia (Acute) Diverticulitis (Acute) History of knee replacement (Resolved) H/O colonoscopy (Resolved) Respiratory failure with hypoxia (Resolved) History of right-sided carotid endarterectomy (Resolved 05/2016) History of herniorrhaphy (Resolved) History of left heart catheterization (Resolved 08/13/12) History of angioplasty of peripheral vessel (Resolved) History of stent insertion of renal artery (Resolved 2003) History of left common carotid artery stent placement (Resolved 2003) H/O basal cell carcinoma excision (Resolved 09/2018) Chronic Problems (Last Reviewed 08/11/19 @ 14:45 by Zofia Mike) Pulmonary hypertension (Chronic) RVSP 43 mmHg Gout (Chronic) GERD (gastroesophageal reflux disease) (Chronic) Renal artery stenosis (Chronic) left sided renal artery stent 2003 Chronic kidney disease, stage 3 (Chronic) Stenosis of left subclavian artery (Chronic) CVA (cerebral vascular accident) (Chronic) Anemia in chronic kidney disease (CKD) (Chronic) Stage III chronic kidney disease (Chronic) PND (post-nasal drip) (Chronic) Atherosclerosis of coronary artery of [place] heart without angina pectoris (Chronic) CABG x 4: Sequential BALES-LAD an D1, SVG-OM1, SVG-RPDA 08/14/12 H/O coronary artery bypass surgery (Chronic 08/14/12) CABG x 4: Sequential BALES-LAD an D1, SVG-OM1, SVG-RPDA 08/14/12 Chronic diastolic (congestive) heart failure (Chronic) Bilateral carotid artery stenosis (Chronic) Right CEA 2016, Left Carotid Stented 2003 Transient ischemic attack (Chronic) Paroxysmal atrial flutter (Chronic) Essential (primary) hypertension (Chronic) Hyperlipidemia (Chronic) Peripheral vascular occlusive disease (Chronic) Bilateral iliac stents, left renal artery stent Plan 1. Acute diverticulitis?admit patient to general medical floor?n.p.o. for now, will put patient on ciprofloxacin and Flagyl. IV fluids normal saline at a modest 75 cc/h, morphine 2 mg IV every 3 hours as needed pain, Zofran 4 mg IV every 8 hours as needed nausea, repeat CBC BMP tomorrow 2. Hypertension we will use as needed hydralazine for hypertension while n.p.o. 3. Hypoxia?oxygen per routine protocol 4. Chronic congestive heart failure/pulmonary hypertension?we will hold Lasix n ow and restart when taking p.o. 5. DVT prophylaxis?SCDs due to chronic kidney disease Inpatient E&M: 82587 Init Hosp L3
[2019-08-25] MEDS: metroNIDAZOLE 500 MG/100 ML BAG 100 MG IV ×3 (05:06→22:12)
[2019-08-25] MEDS: 0.9% Normal Saline 1,000 ML 75 ML IV ×2 (05:57→22:12)
[2019-08-25 06:04] LABS: Basophil# 0.05 X10^3/uL; Basophil% 0.6 % (0-1); Eosinophil# 0.21 X10^3/uL; Eosinophils% 2.3 % (0-5); Hematocrit 30.2 % (40-54); Hemoglobin 8.9 g/dL (13.0-16.5); Mean Corp Hgb Conc 29.5 g/dL (32-36); Mean Corpuscular Hgb 26.6 pg (27.0-32.0); Mean Corpuscular Volume 90.4 fL (80-94); Mean Platelet Vol. 10.3 fl (6.2-12.0); Monocyte# 0.81 X10^3/uL; Monocyte% 8.9 % (0-10); NRBC Flagged by Analyzer 0 % (0-5); Neutrophil # 6.95 X10^3/uL (2.7-7.7); Neutrophil % 76.6 % (47-70); Platelet Count 192 K/mm3 (150-450); RBC Distribution Width CV 19.1 % (11.6-14.6); RBC Distribution Width SD 64.1 fl (35.1-43.9); Red Blood Count 3.34 M/mm3 (4.6-6.2); White Blood Count 9.1 K/mm3 (4.4-11.0)
[2019-08-25] MEDS: Ciprofloxacin 400 MG/200 ML BAG 200 MG IV ×2 (06:09→20:52)
[2019-08-25 06:33] LABS: ALB/GLOB Ratio 0.8 RATIO (0.9-2.4); AST(SGOT) 29 U/L (15-37); Alanine Aminotransfer ALT/SGPT 31 U/L (16-61); Alkaline Phosphatase 138 U/L (45-117); Anion Gap 6 (5-15); BUN 50 mg/dL (7-18); BUN/Creat Ratio 25.1 RATIO (10-20); Calcium,Total 8.5 mg/dL (8.5-10.1); Chloride 105 mmol/L (98-107); Creatinine, Serum 1.99 mg/dL (0.70-1.30); EST Glomerular Filtration Rate 35 mL/min (>60); Est Glom Filt Rate - Afr Amer 42 mL/min (>60); Estimated Creatinine Clearance 31.51 ml/min; Glucose 114 mg/dL (74-106); Magnesium 2.4 mg/dL (1.6-2.6); Potassium 4.1 mmol/L (3.5-5.1); Sodium Level 139 mmol/L (136-145)
--- NOTE | 2019-08-25 11:00 | CASEMGMT ---
RN CM Face to Face with patient for initial transition planning/care coordination assessment. RN CM introduced self and role at [facility]. Patient lying in bed, alert and oriented. Patient willing to participate in assessment and is able to answer all questions appropriately. Care providers, pharmacy, and demographics verified. Patient wishes to discharge home, denies need for home health at this time. Patient states he has no further needs or concerns at this time. CM to follow for discharge planning needs that may arise. PCP: Reji Specialists: Ken, die storage clerk; Lg, production planning manager [facility]acy: [facility] Insurance: [employer] Prescription Benefit: yes Living Will/HPOA: sonNick LNOK: son, girlfriend Living Arrangements: Patient stays with girlfriend in one story home. No steps to enter the home. Patient states he is independent at home. Transportation: self/girlfriend DME/HHC: Patient states he has raised toilet, oxygen 2.5 lpm continuously and nebulizer through [employer]. Disposition Plan: Patient to discharge home with family support and follow-up plans in place. Karena JUNIOR, RN, CM
[2019-08-25] MEDS: amLODIPine 10 MG Tablet PO (18:07)
[2019-08-25] MEDS: Doxazosin 4 MG Tablet 16 MG PO (20:54)
[2019-08-25] MEDS: hydrALAZINE 50 MG Tablet PO (20:54)
[2019-08-25] MEDS: Atorvastatin Calcium 80 MG Tablet PO (20:55)
[2019-08-26] VITALS (11 sets, daily range): BP systolic 126–156; BP diastolic 51–97; PULSE 66–81; RESP 18–20; TEMP 36.6–37.2; O2SAT 86–92
[2019-08-26 05:40] LABS: Absolute Lymphocyte Count 0.55 X10^3/uL (0.83-4.51); Absolute Neutrophil Count 6.4 X10^3/uL (2.0-7.7); Basophil# 0.06 X10^3/uL; Basophil% 0.7 % (0-1); Eosinophil# 0.34 X10^3/uL; Eosinophils% 4.2 % (0-5); Hematocrit 31.9 % (40-54); Hemoglobin 9.2 g/dL (13.0-16.5); Lymphocyte # 0.55 X10^3/ul (4.0); Lymphocyte % 6.8 % (19-41); Mean Corp Hgb Conc 28.8 g/dL (32-36); Mean Corpuscular Hgb 26.6 pg (27.0-32.0); Mean Corpuscular Volume 92.2 fL (80-94); Mean Platelet Vol. 9.7 fl (6.2-12.0); Monocyte% 8.7 % (0-10); NRBC Flagged by Analyzer 0 % (0-5); Neutrophil # 6.38 X10^3/uL (2.7-7.7); Neutrophil % 79.2 % (47-70); POSITIVE DIFFERENTIAL YES; Platelet Count 188 K/mm3 (150-450); RBC Distribution Width CV 18.9 % (11.6-14.6); RBC Distribution Width SD 63.5 fl (35.1-43.9); Red Blood Count 3.46 M/mm3 (4.6-6.2); White Blood Count 8.1 K/mm3 (4.4-11.0)
[2019-08-26 05:46] LABS: Differential Indicated SCAN CRITERIA MET
[2019-08-26] MEDS: metroNIDAZOLE 500 MG/100 ML BAG 100 MG IV (05:51)
[2019-08-26] MEDS: hydrALAZINE 50 MG Tablet PO ×3 (05:51→20:53)
[2019-08-26 05:59] LABS: Anion Gap 8 (5-15); BUN 46 mg/dL (7-18); BUN/Creat Ratio 24.7 RATIO (10-20); Calcium,Total 8.3 mg/dL (8.5-10.1); Chloride 107 mmol/L (98-107); Creatinine, Serum 1.86 mg/dL (0.70-1.30); EST Glomerular Filtration Rate 38 mL/min (>60); Est Glom Filt Rate - Afr Amer 46 mL/min (>60); Estimated Creatinine Clearance 33.71 ml/min; Glucose 99 mg/dL (74-106); Potassium 4.1 mmol/L (3.5-5.1); Sodium Level 140 mmol/L (136-145)
[2019-08-26 06:42] LABS: Differential Comment SCANNED
[2019-08-26 06:43] LABS: Hypochromasia 1+
[2019-08-26 06:45] LABS: Acanthocytes 1+
[2019-08-26] MEDS: Aspirin 81 MG TAB.CHEW PO (09:20)
[2019-08-26] MEDS: amLODIPine 10 MG Tablet PO (09:20)
[2019-08-26] MEDS: Pantoprazole Sodium 20 MG Tablet PO (09:20)
[2019-08-26] MEDS: Furosemide 20 MG Tablet 60 MG PO ×2 (09:40→16:47)
--- NOTE | 2019-08-26 11:41 | CASEMGMT ---
JEROD HART NOTE: Pt reported to RN HAILEY, Karena Meeks, that he has O2 through [employer] @ 2.5 L/M. JEROD Selby, reported to this RN HAILEY that pt told her he is on 3 L/M O2 @ home. Call placed to Lisa @ [facility] to verify pt's current O2 orders with them. Per Lisa, their current O2 orders for pt is @ 2 L/M continuously. JEROD Selby, made aware and she states she will update Dr Brown. Sunny RANGELN JEROD CM
[2019-08-26] MEDS: Ciprofloxacin 500 MG Tablet PO ×2 (12:37→20:53)
[2019-08-26] MEDS: metroNIDAZOLE 500 MG Tablet PO ×2 (14:34→20:53)
--- NOTE | 2019-08-26 15:30 | PN_ITS ---
Patient Problems: Active and Suspected Problems (Last Reviewed 08/11/19 @ 14:45 by Zofia Mike) Diverticulitis (Acute) Subjective: Feeling better today, he was advanced to clears yesterday afternoon and wants to try a cardiac diet this afternoon for lunch. Pain has essentially resolved. Short of breath with the IV fluids that he was on and had to go up on his oxygen from about 2 to 4 L Vitals/I&O's: Vital Signs Temp Pulse Resp BP Pulse Ox 98.6 F 72 18 151/54 H 87 08/26/19 14:35 08/26/19 14:35 08/26/19 14:35 08/26/19 14:35 08/26/19 14:35 Oxygen Flow Rate (L/min) 4 Oxygen Delivery Method Nasal Cannula Weight: 159 lb 2.78 oz Body Mass Index (BMI) 24.2 Intake and Output for Last 24 Hours 08/24/19 08/25/19 08/26/19 23:59 23:59 23:59 Intake Total 2200.00 / 2200.00 1583.75 / 1583.75 Output Total 700 / 700 925 / 925 Balance 1500.00 / 1500.00 658.75 / 658.75 General: Alert, Oriented x3, Cooperative, No apparent distress HEENT: Atraumatic, PERRLA, EOMI, Normocephalic Oral: Moist Mucosa Neck: Supple, No JVD Lungs: Clear to auscultation, Normal air movement, No rhonchi, No wheeze, No rales, Diminished Cardiovascular: Regular rate, Regular Rhythm, Normal S1, Normal S2, No murmurs Abdomen: Soft, Non Tender, Non-Distended, No Hepato-splenomegaly Extremities: Capillary Refill Less than 3 Seconds, Edema - 1+ pitting bilaterally Skin: No rashes, No breakdown Neurological: Neuro grossly intact, Sensory exam intact to light touch and pain Psych/Mental Status: Normal Affect, Appropriate Laboratory Results 08/26/19 05:30: WBC 8.1, RBC 3.46 L, Hgb 9.2 L, Hct 31.9 L, MCV 92.2, MCH 26.6 L , MCHC 28.8 L, RDW Std Deviation 63.5 H, RDW Coeff of Lisa 18.9 H, Plt Count 188, MPV 9.7, Immature Gran % (Auto) 0.400, Neut % (Auto) 79.2 H, Lymph % (Auto) 6.8 L, Real % (Auto) 8.7, Eos % (Auto) 4.2, Baso % (Auto) 0.7, Absolute Neuts (auto) 6.4, Absolute Lymphs (auto) 0.55 L, Nucleated RBC % 0, Differential Comment SCANNED, Hypochromasia 1+, Acanthocytes (Spur) 1+ 08/26/19 05:30: Sodium 140, Potassium 4.1, Chloride 107, Carbon Dioxide 25.0, Anion Gap 8, BUN 46 H, Creatinine 1.86 H, Estim Creat Clear Calc 33.71, Est GFR (MDRD) Af Amer 46 L, Est GFR (MDRD) Non-Af 38 L, BUN/Creatinine Ratio 24.7 H, Glucose 99, Calcium 8.3 L Current Medications Amlodipine Besylate (Norvasc) 10 mg PO DAILY [facility] Last Admin: 08/26/19 09:20 Dose: 10 mg Documented by: Aspirin (Aspirin, Baby) 81 mg PO DAILY@0800 [facility] Last Admin: 08/26/19 09:20 Dose: 81 mg Documented by: Atorvastatin Calcium (Lipitor) 80 mg PO DAILY@2200 [facility] Last Admin: 08/25/19 20:55 Dose: 80 mg Documented by: Ciprofloxacin HCl (Cipro) 500 mg PO BID [facility] Last Admin: 08/26/19 12:37 Dose: 500 mg Documented by: Doxazosin Mesylate (Cardura) 16 mg PO QHS [facility] Last Admin: 08/25/19 20:54 Dose: 16 mg Documented by: Furosemide (Lasix) 60 mg PO BID [facility] Last Admin: 08/26/19 09:40 Dose: 60 mg Documented by: Hydralazine HCl (Apresoline) 50 mg PO TID [facility] Last Admin: 08/26/19 14:34 Dose: 50 mg Documented by: Sodium Chloride () 250 mls @ 15 mls/hr IV .[id number] PRN PRN Reason: Saline Flush Sodium Chloride () 250 mls @ 15 mls/hr IV .[id number] PRN PRN Reason: Additional IVPB Infusion Metronidazole (Flagyl) 500 mg PO TID [facility] Last Admin: 08/26/19 14:34 Dose: 500 mg Documented by: Morphine Sulfate () 2 mg IV Q3H PRN PRN PRN Reason: Pain Score 6-10/10 Ondansetron HCl (Zofran) 4 mg IV Q8H PRN PRN PRN Reason: NAUSEA/VOMITING Pantoprazole Sodium (Protonix) 20 mg PO DAILY [facility] Last Admin: 08/26/19 09:20 Dose: 20 mg Documented by: Sodium Chloride () 10 - 40 ml IV UD PRN PRN Reason: SALINE FLUSH STROKE Vital Signs/Narrative: Vital Signs Temp Pulse Resp BP Pulse Ox 08/26/19 14:35 98.6 F 72 18 151/54 H 87 08/26/19 14:34 72 08/26/19 12:39 97.8 F 70 18 145/68 H 89 Medical Necessity - Tobacco Use Tobacco Use: Cigarettes Assessment/Plan All Active Problems (Last Reviewed 08/11/19 @ 14:45 by Zofia Mike) CHF exacerbation (Acute) Elevated troponin (Acute) Hypoxia (Acute) Diverticulitis (Acute) History of knee replacement (Resolved) H/O colonoscopy (Resolved) Respiratory failure with hypoxia (Resolved) History of right-sided carotid endarterectomy (Resolved 05/2016) History of herniorrhaphy (Resolved) History of left heart catheterization (Resolved 08/13/12) History of angioplasty of peripheral vessel (Resolved) History of stent insertion of renal artery (Resolved 2003) History of left common carotid artery stent placement (Resolved 2003) H/O basal cell carcinoma excision (Resolved 09/2018) 1. Mild diverticulitis -Continue with Cipro and Flagyl, will transition him to p.o. as he has been having some shortness of breath with his fluid -Started 60 mg p.o. Lasix twice daily and monitor -We will advance diet slowly, he says his pain is resolved 2. Chronic diastolic CHF/HTN/HLD/paroxysmal a flutter/CAD status post CABG/carotid stenosis status post CEA/left renal artery stent -We will restart his Lasix based on his shortness of breath, blood pressure is stable so can continue with his home blood pressure medications -Continue with his Lipitor and his Zetia -Continue with aspirin and Norvasc 3. chronic hypoxia on 2 to 3 L nasal cannula secondary to CHF and pulmonary hypertension -The up to 4 L via nasal cannula -Likely related to the fluid he was given, IV fluids have been discontinued and he was restarted on his Lasix 4. BPH -Stable -Continue with Cardura 5. GERD -Stable -Continue with PPI 6. CKD 3 -Creatinine is at baseline -Stable DVT: SCDs Inpatient E&M: 37898 Subs Hosp L2
[2019-08-26] MEDS: Doxazosin 4 MG Tablet 16 MG PO (20:52)
[2019-08-26] MEDS: Atorvastatin Calcium 80 MG Tablet PO (20:53)
[2019-08-27] VITALS (11 sets, daily range): BP systolic 135–167; BP diastolic 49–61; PULSE 70–79; RESP 18–20; TEMP 36.8–37.5; O2SAT 88–96
[2019-08-27] MEDS: hydrALAZINE 50 MG Tablet PO ×3 (05:23→22:34)
[2019-08-27] MEDS: metroNIDAZOLE 500 MG Tablet PO ×3 (05:23→22:34)
[2019-08-27] MEDS: Furosemide 20 MG Tablet 60 MG PO (08:37)
[2019-08-27] MEDS: Aspirin 81 MG TAB.CHEW PO (08:37)
[2019-08-27] MEDS: amLODIPine 10 MG Tablet PO (08:38)
[2019-08-27] MEDS: Pantoprazole Sodium 20 MG Tablet PO (08:38)
[2019-08-27] MEDS: Ciprofloxacin 500 MG Tablet PO ×2 (08:38→22:35)
--- NOTE | 2019-08-27 09:09 | PCM.DC ---
- Discharge Diagnoses Current Active Problems: Current Active and Chronic Problems (Last Reviewed 08/11/19 @ 14:45 by Zofia Mike) Diverticulitis (Acute) You will use the following diet at home:: Cardiac, Fluid restricted (specify 2000 mls, 1500 mls) - 1500 Your food should be the consistency of: Regular Your liquids should be the consistency of: Regular/Thin Discharge Activity: Return to Normal Activity Call your doctor if you observe: Fever of 101 or Higher, Shortness of breath, Dizziness, Fainting spells, Swelling in the ankles, Chest pain, Increased palpitations (irregular heartbeat) Allergies/Adverse Reactions: Allergies No Known Allergies Allergy (Verified 08/25/19 02:15) Medications to take at Discharge Amlodipine [Norvasc] 10 mg PO DAILY 05/15/16 Atorvastatin Calcium [Lipitor] 80 mg PO DAILY 05/15/16 Doxazosin Mesylate [Cardura] 16 mg PO DAILY 05/15/16 Nitroglycerin [Nitrostat] 0.4 mg SL PRN PRN 05/15/16 hydrALAZINE [Apresoline] 50 mg PO TID 06/27/18 ferrous sulfate 325 mg (65 mg iron) tablet 325 mg PO DAILY 01/16/19 carvedilol 25 mg tablet 50 mg PO BID #180 tab 03/03/19 Ipratropium [place] 1 spray NASAL BID 04/07/19 Albuterol Sulfate [Albuterol Sulfate HFA] 1 puff IN Q4H PRN PRN 08/03/19 Aspirin [Aspirin, Baby] 81 mg PO DAILY 08/03/19 Ezetimibe [Zetia] 10 mg PO DAILY 08/03/19 Multivitamin with Minerals [Multiple Vitamin] 1 tab PO DAILY 08/03/19 Omeprazole 20 mg PO DAILY 08/03/19 Furosemide [Lasix] 60 mg PO BID #180 tab 08/05/19 Potassium Chloride [K-Dur] 60 meq PO BID 08/25/19 Ciprofloxacin [Cipro] 500 mg PO BID #14 tab 08/27/19 metroNIDAZOLE [Flagyl] 500 mg PO TID #21 tab 08/27/19 The following prescriptions were given: Ciprofloxacin [Cipro] 500 mg PO BID #14 tab Transmission Status: Pending to [facility] metroNIDAZOLE [Flagyl] 500 mg PO TID #21 tab Transmission Status: Pending to [facility] Primary Care Physician: Jeremiah Mendoza MD [Primary Care Provider] - Please follow up with your Primary Care Physician in: 3-5 days Test Results: Test results from this visit will be discussed in further detail at your follow-up appointment, if applicable.
--- NOTE | 2019-08-27 09:10 | DS.PCM_ITS ---
Discharge Date and Diagnosis - Problem List Patient Problems: Active and Suspected Problems (Last Reviewed 08/11/19 @ 14:45 by Zofia Mike) Diverticulitis (Acute) Date of Admission: 08/25/19 Date of Discharge: 08/27/19 - Primary Discharge Diagnosis Acute Problems: Active Problems (Last Reviewed 08/11/19 @ 14:45 by Zofia Mike) Diverticulitis (Acute) - Secondary Discharge Diagnosis Chronic Problems: Chronic Problems (Last Reviewed 08/11/19 @ 14:45 by Zofia Mike) Pulmonary hypertension (Chronic) RVSP 43 mmHg Gout (Chronic) GERD (gastroesophageal reflux disease) (Chronic) Renal artery stenosis (Chronic) left sided renal artery stent 2003 Chronic kidney disease, stage 3 (Chronic) Stenosis of left subclavian artery (Chronic) CVA (cerebral vascular accident) (Chronic) Anemia in chronic kidney disease (CKD) (Chronic) Stage III chronic kidney disease (Chronic) PND (post-nasal drip) (Chronic) Atherosclerosis of coronary artery of [place] heart without angina pectoris (Chronic) CABG x 4: Sequential BALES-LAD an D1, SVG-OM1, SVG-RPDA 08/14/12 H/O coronary artery bypass surgery (Chronic 08/14/12) CABG x 4: Sequential BALES-LAD an D1, SVG-OM1, SVG-RPDA 08/14/12 Chronic diastolic (congestive) heart failure (Chronic) Bilateral carotid artery stenosis (Chronic) Right CEA 2016, Left Carotid Stented 2003 Transient ischemic attack (Chronic) Paroxysmal atrial flutter (Chronic) Essential (primary) hypertension (Chronic) Hyperlipidemia (Chronic) Peripheral vascular occlusive disease (Chronic) Bilateral iliac stents, left renal artery stent Hospital Course and Treatment Imaging Results: CT ABd/Pelvis: IMPRESSION: Persistent moderate volume effusions atelectasis. Cardiomegaly. Diverticulosis. Minimal inflammatory change adjacent to the distal descending colon which may represent a small focus of mild colitis or diverticulitis. There is a distended loop of bowel within the left upper quadrant suggestive of possible enteritis or mild focal ileus, see image 77 axial views.. Reactive inguinal lymphadenopathy. Moderate aortic stenosis. Consults: None Operations: None Procedures: None Summary of Care Provided: Per HPI: The patient is a 74 year old patient with a past medical history of coronary artery disease, hypertension, congestive heart failure who presents to the emergency room with a chief complaint of abdominal pain. The onset of this pain began at 10:30 PM last evening and was 8/10 in nature associated with nausea but no vomiting. He points to the mid abdomen on both the left and right side when describing the location of his pain that is nonradiating. CT scan abdomen reveals an area on the left side consistent with diverticulitis. The patient states that after receiving morphine in the emergency room his pain is decreased considerably and he is more comfortable. Laboratory findings are consistent with his chronic conditions but no acute changes are noted. He will be admitted for further treatment of his diverticulitis. Of note the patient does have chronic pleural effusions and is on Lasix for this and was hospitalized in this past August for an exacerbation of his congestive heart failure. Hospital Course: 1. Mild [id number]-old male with significant coronary artery disease and diastolic heart failure who is a significant vasculopath presented with left-sided abdominal pain. CT scan demonstrated mild colitis possible enteritis. He was started on Cipro and Flagyl and made n.p.o. He was able to tolerate a diet on the day of discharge, and his pain was completely resolved without the need for any pain medication, he will continue with Cipro/Flagyl on discharge for 7 more days. He was started initially on IV fluids however he started having some edema in his lower extremities so he was restarted on his home oral Lasix however since he was continuing to have lower extremity edema a one-time dose of IV Lasix was given on the day of discharge. He seemed a little discouraged about the edema and I did explain to him that this is going to be an issue with him for the rest of his life given the poor function of his heart and the significant vascular disease he has with needing heart bypass, carotid stents and endarterectomies, and a left renal artery stent. He seems to understand this and will follow up with his primary care doctor as well as his laboratory sampler and surgeon as an outpatient. I did discuss with him the plan for discharge today and the need to fluid restrict to 1.5 L and to continue with his Lasix. He will need to follow-up with his PCP in 3 to 5 days. He expressed understanding to the risks and benefits of discharge today. 2. Chronic diastolic CHF/HTN/HLD/paroxysmal a flutter/CAD status post CABG/carotid stenosis status post CEA/left renal artery stent-CT of his abdomen pelvis also demonstrates moderate aortic stenosis, on CT scan the lumen of his aorta measures 5.4 mm, there is also a right-sided external iliac artery stent. He is little bit discouraged with his continued shortness of breath and I did explain to him that based on his cardiac function this is likely going to be permanent and that he will need to continue his Lasix and his fluid restriction. He did have a slight increase in his lower extremity edema secondary to IV fluids, those were discontinued the day prior to discharge and he was restarted on his home Lasix. Hopefully he can continue this as an outpatient and the one- time dose of IV Lasix on the day of discharge should help with any fluid retention. 3. His other medical diagnoses were evaluated and his home medications were continued where appropriate Patient Problems: Active and Suspected Problems (Last Reviewed 08/11/19 @ 14:45 by Zofia Mike) Diverticulitis (Acute) - Physical Exam Vitals/I&O's: Vital Signs Temp Pulse Resp BP Pulse Ox 98.2 F 79 20 H 135/49 H 94 08/27/19 08:31 08/27/19 08:31 08/27/19 08:31 08/27/19 08:31 08/27/19 08:31 Oxygen Flow Rate (L/min) 5 Oxygen Delivery Method Nasal Cannula Weight: 159 lb 2.78 oz Body Mass Index (BMI) 24.2 Intake and Output for Last 24 Hours 08/25/19 08/26/19 08/27/19 23:59 23:59 23:59 Intake Total 2200.00 / 2200.00 1833.75 / 1833.75 350 / 350 Output Total 700 / 700 1500 / 1500 600 / 600 Balance 1500.00 / 1500.00 333.75 / 333.75 -250 / -250 General: Alert, Oriented x3, Cooperative, No apparent distress HEENT: Atraumatic, PERRLA, EOMI, Normocephalic Oral: Moist Mucosa Neck: Supple, No JVD Lungs: Clear to auscultation, Normal air movement, No rhonchi, No wheeze, No rales, Diminished Cardiovascular: Regular rate, Regular Rhythm, Normal S1, Normal S2, No murmurs Abdomen: Soft, Non Tender, Non-Distended, No Hepato-splenomegaly Extremities: Capillary Refill Less than 3 Seconds, Edema - 1-2+ pitting bilateral lower extremity Skin: No rashes, No breakdown Neurological: Neuro grossly intact, Sensory exam intact to light touch and pain Psych/Mental Status: Normal Affect, Appropriate Current Medications Amlodipine Besylate (Norvasc) 10 mg PO DAILY [facility] Last Admin: 08/27/19 08:38 Dose: 10 mg Documented by: Aspirin (Aspirin, Baby) 81 mg PO DAILY@0800 [facility] Last Admin: 08/27/19 08:37 Dose: 81 mg Documented by: Atorvastatin Calcium (Lipitor) 80 mg PO DAILY@2200 [facility] Last Admin: 08/26/19 20:53 Dose: 80 mg Documented by: Ciprofloxacin HCl (Cipro) 500 mg PO BID [facility] Last Admin: 08/27/19 08:38 Dose: 500 mg Documented by: Doxazosin Mesylate (Cardura) 16 mg PO QHS [facility] Last Admin: 08/26/19 20:52 Dose: 16 mg Documented by: Furosemide (Lasix) 60 mg PO BIDLX [facility] Last Admin: 08/27/19 08:37 Dose: 60 mg Documented by: Furosemide (Lasix) 40 mg IV X1 ONE Stop: 08/27/19 09:01 Hydralazine HCl (Apresoline) 50 mg PO TID [facility] Last Admin: 08/27/19 05:23 Dose: 50 mg Documented by: Sodium Chloride () 250 mls @ 15 mls/hr IV .[id number] PRN PRN Reason: Saline Flush Sodium Chloride () 250 mls @ 15 mls/hr IV .[id number] PRN PRN Reason: Additional IVPB Infusion Metronidazole (Flagyl) 500 mg PO TID [facility] Last Admin: 08/27/19 05:23 Dose: 500 mg Documented by: Morphine Sulfate () 2 mg IV Q3H PRN PRN PRN Reason: Pain Score 6-10/10 Ondansetron HCl (Zofran) 4 mg IV Q8H PRN PRN PRN Reason: NAUSEA/VOMITING Pantoprazole Sodium (Protonix) 20 mg PO DAILY [facility] Last Admin: 08/27/19 08:38 Dose: 20 mg Documented by: Sodium Chloride () 10 - 40 ml IV UD PRN PRN Reason: SALINE FLUSH Discharge Activity: Return to Normal Activity Call your doctor if you observe: Fever of 101 or Higher, Shortness of breath, Dizziness, Fainting spells, Swelling in the ankles, Chest pain, Increased palpitations (irregular heartbeat) Home Medications: Medications to take at Discharge Amlodipine [Norvasc] 10 mg PO DAILY 05/15/16 Atorvastatin Calcium [Lipitor] 80 mg PO DAILY 05/15/16 Doxazosin Mesylate [Cardura] 16 mg PO DAILY 05/15/16 Nitroglycerin [Nitrostat] 0.4 mg SL PRN PRN 05/15/16 hydrALAZINE [Apresoline] 50 mg PO TID 06/27/18 ferrous sulfate 325 mg (65 mg iron) tablet 325 mg PO DAILY 01/16/19 carvedilol 25 mg tablet 50 mg PO BID #180 tab 03/03/19 Ipratropium [place] 1 spray NASAL BID 04/07/19 Albuterol Sulfate [Albuterol Sulfate HFA] 1 puff IN Q4H PRN PRN 08/03/19 Aspirin [Aspirin, Baby] 81 mg PO DAILY 08/03/19 Ezetimibe [Zetia] 10 mg PO DAILY 08/03/19 Multivitamin with Minerals [Multiple Vitamin] 1 tab PO DAILY 08/03/19 Omeprazole 20 mg PO DAILY 08/03/19 Furosemide [Lasix] 60 mg PO BID #180 tab 08/05/19 Potassium Chloride [K-Dur] 60 meq PO BID 08/25/19 Ciprofloxacin [Cipro] 500 mg PO BID #14 tab 08/27/19 metroNIDAZOLE [Flagyl] 500 mg PO TID #21 tab 08/27/19 Following Prescrptions Were Given to Patient: Ciprofloxacin [Cipro] 500 mg PO BID #14 tab Transmission Status: Pending to [facility] metroNIDAZOLE [Flagyl] 500 mg PO TID #21 tab Transmission Status: Pending to [facility] Primary Care Physician: Jeremiah Mendoza MD [Primary Care Provider] - Please follow up with your Primary Care Physician in: 3-5 days Disposition: Home Minutes spent on discharge:: 35 Patient Condition:: Stable Medical Necessity - Tobacco Use Tobacco Use: Cigarettes Meaningful Use Info Meaningful Use Diagnoses (Choose all that apply): None applicable Inpatient E&M: 35781 [facility]
[2019-08-27] MEDS: Furosemide 40 MG/4 ML Vial IV ×2 (09:33→22:34)
--- NOTE | 2019-08-27 09:43 | CASEMGMT ---
JEROD HART NOTE: Pt being discharged today. JEROD HART to room to discuss any discharge planning/needs. Pt denies having any concerns/needs with going home @ discharge. Discussed options of HHC for nursing care/med mgmt/teaching and to f/u w/CHF, O2, etc. Pt declines wanting any HHC, stating his lady friend takes care of him and manages things for him and he does not feel he needs anything further at this time. Also discussed CCN with pt at this time, but he declines this as well. Pt to have Home oxygen testing completed. Will fax [employer] updated O2 scripts for any increased Oxygen needs. SW to talk with pt about Palliative Care. Sunny JUNIOR RN CM
--- NOTE | 2019-08-27 10:49 | PHA.DC.MC ---
Pharmacy Service has performed discharge medication reconciliation and counseling for this patient. Home Medications Amlodipine [Norvasc] 10 mg PO DAILY 05/15/16 Atorvastatin Calcium [Lipitor] 80 mg PO DAILY 05/15/16 Doxazosin Mesylate [Cardura] 16 mg PO DAILY 05/15/16 Nitroglycerin [Nitrostat] 0.4 mg SL PRN PRN 05/15/16 hydrALAZINE [Apresoline] 50 mg PO TID 06/27/18 ferrous sulfate 325 mg (65 mg iron) tablet 325 mg PO DAILY 01/16/19 carvedilol 25 mg tablet 50 mg PO BID #180 tab 03/03/19 Ipratropium [place] 1 spray NASAL BID 04/07/19 Albuterol Sulfate [Albuterol Sulfate HFA] 1 puff IN Q4H PRN PRN 08/03/19 Aspirin [Aspirin, Baby] 81 mg PO DAILY 08/03/19 Ezetimibe [Zetia] 10 mg PO DAILY 08/03/19 Multivitamin with Minerals [Multiple Vitamin] 1 tab PO DAILY 08/03/19 Omeprazole 20 mg PO DAILY 08/03/19 Furosemide [Lasix] 60 mg PO BID #180 tab 08/05/19 Potassium Chloride [K-Dur] 60 meq PO BID 08/25/19 Ciprofloxacin [Cipro] 500 mg PO BID #14 tab 08/27/19 metroNIDAZOLE [Flagyl] 500 mg PO TID #21 tab 08/27/19 The patient was counseled on the following discharge medications and changes in medications for homegoing were reviewed. The Reason for Use, instructions for use, and potential side effects were reviewed for all new medications. 1. Cipro: 500mg PO BID x7 days 2. Flagyl: 500mg PO TID x7 days The patient's questions regarding all of their medications were answered. The patient demonstrated some understanding but would benefit from further education and reinforcement. The patient's discharge medication list was reviewed for discrepancies and discrepancies were resolved.
--- NOTE | 2019-08-27 11:17 | CASEMGMT ---
Social Work Note RN CM asked this worker if pt would be appropriate for Palliative. SW completed Palliative Screening tool, pt scored three. SW in to speak with pt. SW introduced self and role at [facility]. Pt is alert and orientated x3. SW asked pt about Palliative Care. Pt states I don't need it. SW asked pt if anyone has spoke to him before regarding Palliative and pt states no. SW asked pt if this worker could educated him on Palliative and pt stated no. SW asked pt if this worker could provide him with Palliative Brochure and pt stated no as well. Karena Werner RN MATERNAL CHILD, [employer]INO C[employer]IER MANAGER
[2019-08-27] MEDS: Furosemide 20 MG/2 ML VIAL IV (11:34)
--- NOTE | 2019-08-27 11:43 | EKG12_ITS ---
Test Reason : Blood Pressure : / mmHG Vent. Rate : 076 BPM Atrial Rate : 076 BPM P-R Int : 212 ms QRS Dur : 104 ms QT Int : 414 ms P-R-T Axes : 068 047 197 degrees QTc Int : 465 ms Sinus rhythm with sinus arrhythmia with 1st degree A-V block Left ventricular hypertrophy with repolarization abnormality Abnormal ECG When compared with ECG of 25-AUG-2019 02:39, MANUAL COMPARISON REQUIRED, DATA IS UNCONFIRMED Confirmed by ARELY JONES ([id number]), cellophane worker FUENTES MUELLER ([id number]) on 09/03/2019 12:01:34 PM Referred By: SHERLEY Confirmed By:ARELY JONES
--- NOTE | 2019-08-27 11:48 | PCM.PN.HOSP ---
Patient Problems: Active and Suspected Problems (Last Reviewed 08/11/19 @ 14:45 by Zofia Mike) Diverticulitis (Acute) Subjective: Denies any chest pain or increasing shortness of breath, he says that he feels fine other than the swelling in his feet. Today on ambulation he required 8 L to maintain a sat of 88% and has had slowly had increasing oxygen requirements. His Lasix had been restarted yesterday and he is only 1.5 L positive. Vitals/I&O's: Vital Signs Temp Pulse Resp BP Pulse Ox 98.2 F 79 20 H 135/49 H 90 08/27/19 08:31 08/27/19 08:31 08/27/19 08:31 08/27/19 08:31 08/27/19 10:49 Oxygen Flow Rate (L/min) [ 8 AMBULATION with Oxygen] Oxygen Flow Rate (L/min) [At 5 REST on Room Air] Oxygen Flow Rate (L/min) 5 Oxygen Delivery Method Nasal Cannula Weight: 159 lb 2.78 oz Body Mass Index (BMI) 24.2 Intake and Output for Last 24 Hours 08/25/19 08/26/19 08/27/19 23:59 23:59 23:59 Intake Total 2200.00 / 2200.00 1833.75 / 1833.75 350 / 350 Output Total 700 / 700 1500 / 1500 600 / 600 Balance 1500.00 / 1500.00 333.75 / 333.75 -250 / -250 General: Alert, Oriented x3, Cooperative, No apparent distress HEENT: Atraumatic, PERRLA, EOMI, Normocephalic Oral: Moist Mucosa Neck: Supple, No JVD Lungs: Clear to auscultation, Normal air movement, No rhonchi, No wheeze, No rales, Diminished Cardiovascular: Regular rate, Regular Rhythm, Normal S1, Normal S2, No murmurs Abdomen: Soft, Non Tender, Non-Distended, No Hepato-splenomegaly Extremities: Capillary Refill Less than 3 Seconds, Edema - 1-2+ pitting bilaterally Skin: No rashes, No breakdown Neurological: Neuro grossly intact, Sensory exam intact to light touch and pain Psych/Mental Status: Normal Affect, Appropriate Current Medications Amlodipine Besylate (Norvasc) 10 mg PO DAILY [facility] Last Admin: 08/27/19 08:38 Dose: 10 mg Documented by: Aspirin (Aspirin, Baby) 81 mg PO DAILY@0800 [facility] Last Admin: 08/27/19 08:37 Dose: 81 mg Documented by: Atorvastatin Calcium (Lipitor) 80 mg PO DAILY@2200 [facility] Last Admin: 08/26/19 20:53 Dose: 80 mg Documented by: Ciprofloxacin HCl (Cipro) 500 mg PO BID [facility] Last Admin: 08/27/19 08:38 Dose: 500 mg Documented by: Doxazosin Mesylate (Cardura) 16 mg PO QHS [facility] Last Admin: 08/26/19 20:52 Dose: 16 mg Documented by: Furosemide (Lasix) 60 mg PO BIDLX [facility] Last Admin: 08/27/19 08:37 Dose: 60 mg Documented by: Hydralazine HCl (Apresoline) 50 mg PO TID [facility] Last Admin: 08/27/19 05:23 Dose: 50 mg Documented by: Sodium Chloride () 250 mls @ 15 mls/hr IV .[id number] PRN PRN Reason: Saline Flush Sodium Chloride () 250 mls @ 15 mls/hr IV .[id number] PRN PRN Reason: Additional IVPB Infusion Metronidazole (Flagyl) 500 mg PO TID [facility] Last Admin: 08/27/19 05:23 Dose: 500 mg Documented by: Morphine Sulfate () 2 mg IV Q3H PRN PRN PRN Reason: Pain Score 6-10/10 Ondansetron HCl (Zofran) 4 mg IV Q8H PRN PRN PRN Reason: NAUSEA/VOMITING Pantoprazole Sodium (Protonix) 20 mg PO DAILY [facility] Last Admin: 08/27/19 08:38 Dose: 20 mg Documented by: Sodium Chloride () 10 - 40 ml IV UD PRN PRN Reason: SALINE FLUSH STROKE Vital Signs/Narrative: Vital Signs Temp Pulse Resp BP Pulse Ox Pulse Ox Pulse Ox 08/27/19 10:49 88 90 08/27/19 08:31 98.2 F 79 20 H 135/49 H 94 Medical Necessity - Tobacco Use Tobacco Use: Cigarettes Assessment/Plan All Active Problems (Last Reviewed 08/11/19 @ 14:45 by Zofia Mike) CHF exacerbation (Acute) Elevated troponin (Acute) Hypoxia (Acute) Diverticulitis (Acute) History of knee replacement (Resolved) H/O colonoscopy (Resolved) Respiratory failure with hypoxia (Resolved) History of right-sided carotid endarterectomy (Resolved 05/2016) History of herniorrhaphy (Resolved) History of left heart catheterization (Resolved 08/13/12) History of angioplasty of peripheral vessel (Resolved) History of stent insertion of renal artery (Resolved 2003) History of left common carotid artery stent placement (Resolved 2003) H/O basal cell carcinoma excision (Resolved 09/2018) 1. Mild diverticulitis -Continue with Cipro and Flagyl, will transition him to p.o. as he has been having some shortness of breath with his fluid -We will advance diet slowly, he says his pain is resolved 2. Chronic diastolic CHF/HTN/HLD/paroxysmal a flutter/CAD status post CABG/carotid stenosis status post CEA/left renal artery stent -We will restart his Lasix based on his shortness of breath, blood pressure is stable so can continue with his home blood pressure medications -Continue with his Lipitor and his Zetia -Continue with aspirin and Norvasc -He was given 60 mg of IV Lasix today on top of his p.o. Lasix. However he continued to have some increasing oxygen requirement. Will obtain a chest x-ray as well as an EKG and a troponin for further evaluation of his shortness of breath. He denies any chest pain lightheadedness or dizziness. And states that he is not having any significant shortness of breath. 3. chronic hypoxia on 2 to 3 L nasal cannula secondary to CHF and pulmonary hypertension -He is up to 5 L nasal cannula -Likely related to the fluid he was given, IV fluids have been discontinued and he was restarted on his Lasix 4. BPH -Stable -Continue with Cardura 5. GERD -Stable -Continue with PPI 6. CKD 3 -Creatinine is at baseline -Stable DVT: SCDs Inpatient E&M: 67052 Subs Hosp L2
--- NOTE | 2019-08-27 12:06 | RAD_ITS ---
STUDY: X-RAY CHEST REASON FOR EXAM: Male, 74 years old. SOB TECHNIQUE: PA and 2 lateral views of the chest. COMPARISON: 08/25/2019 FINDINGS: Lungs are expanded, persistent diffuse airspace opacifications noted in both lung gama essentially unchanged from the previous study. There has been development of bilateral pleural effusions, right greater than left since the previous study. Follow-up recommended to assure resolution. Sternal cerclage wires and vascular clips are present from a prior sternotomy and coronary artery bypass graft procedure (CABG). Normal mediastinum and memo. Normal visualized pulmonary arteries. There is atherosclerotic calcification of the aortic arch with tortuosity. There are diffuse degenerative changes of the visualized thoracic spine. Normal visualized ribs, clavicles, and shoulders. There is no demonstrated abnormality of the visualized soft tissue structures of the upper abdomen. RAD/Chest PA and Lateral IMPRESSION: Development of bilateral pleural effusions, right greater than left since the previous study. Stable diffuse airspace opacifications in both lung gama. Remote CABG Electronically Signed: Rachid Zelaya MD at 13:04 EDT , Service support ,
--- NOTE | 2019-08-27 16:14 | CON.PCM_ITS ---
Problem List (1) Pleural effusion due to CHF (congestive heart failure) Status: Acute (2) CHF exacerbation Status: Acute Qualifiers: Heart failure type: diastolic Qualified Code(s): I50.33 - Acute on chronic diastolic (congestive) heart failure (3) Diverticulitis Status: Acute (4) Pulmonary hypertension Status: Chronic Comment: RVSP 43 mmHg (5) History of knee replacement Status: Resolved (6) H/O colonoscopy Status: Resolved Comment: 2009-repeat 2019 (7) Gout Status: Chronic Qualifiers: Gout site: unspecified site (8) GERD (gastroesophageal reflux disease) Status: Chronic Qualifiers: (9) History of right-sided carotid endarterectomy Status: Resolved (10) History of herniorrhaphy Status: Resolved (11) History of left heart catheterization Status: Resolved (12) Renal artery stenosis Status: Chronic Comment: left sided renal artery stent 2003 (13) Chronic kidney disease, stage 3 Status: Chronic (14) History of angioplasty of peripheral vessel Status: Resolved Comment: Bilateral iliac stents (15) History of stent insertion of renal artery Status: Resolved Comment: 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, 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 (16) History of left common carotid artery stent placement Status: Resolved (17) CVA (cerebral vascular accident) Status: Chronic (18) Anemia in chronic kidney disease (CKD) Status: Chronic (19) H/O basal cell carcinoma excision Status: Resolved (20) PND (post-nasal drip) Status: Chronic (21) Chronic diastolic (congestive) heart failure Status: Chronic (22) Bilateral carotid artery stenosis Status: Chronic Comment: Right CEA 2016, Left Carotid Stented 2003 Reason for Consult Date of Consultation: 08/27/19 Reason for Consultation: Hypoxia History of Present Illness: The patient is a 74 year old M, with past medical history listed below and well- known to our practice, who presented was [facility] on 08/25/2019 secondary to progressive abdominal pain that started at approximately 10:30 PM. Patient states that this continued to get worse. This was not associated with food, chest pain or shortness of breath. On presentation to the ER, patient was noted to have a creatinine of 2.03 with glucose of 124 and lipase of 113. Urinalysis was unremarkable, but CT abdomen showed moderate effusions with atelectasis and reactive inguinal adenopathy. Patient was started on ciprofloxacin and Flagyl and admitted to the hospital for further evaluation. Patient reports that he was without his Lasix for 48 hours, but it was reinitiated yesterday. Patient started to have progressive hypoxia, so pulmonary consult was obtained. Chest x-ray completed today showed worsening bilateral pleural effusions, right greater than left. Patient is up only 2 kg from admission, but is requiring 6 L nasal cannula to maintain saturations at rest. Patient states he is typically on 2-1/2 to 4 L at home. Patient is not reporting any dyspnea on sitting in the chair, but does have it with walking to the bathroom. Patient feels his abdominal pain is much improved from presentation and he would like to go home JUSTIN. Review of systems otherwise negative from a constitutional, HEENT, respiratory, cardiovascular, GI, genitourinary, musculoskeletal, skin, neurologic, psychiatric and hematologic system unless stated above. Past Medical History Past Medical History (Chronic Problems): Chronic Problems (Last Reviewed 08/11/19 @ 14:45 by Zofia Mike) Pulmonary hypertension (Chronic) RVSP 43 mmHg Gout (Chronic) GERD (gastroesophageal reflux disease) (Chronic) Renal artery stenosis (Chronic) left sided renal artery stent 2003 Chronic kidney disease, stage 3 (Chronic) Stenosis of left subclavian artery (Chronic) CVA (cerebral vascular accident) (Chronic) Anemia in chronic kidney disease (CKD) (Chronic) Stage III chronic kidney disease (Chronic) PND (post-nasal drip) (Chronic) Atherosclerosis of coronary artery of [place] heart without angina pectoris (Chronic) CABG x 4: Sequential BALES-LAD an D1, SVG-OM1, SVG-RPDA 08/14/12 H/O coronary artery bypass surgery (Chronic 08/14/12) CABG x 4: Sequential BALES-LAD an D1, SVG-OM1, SVG-RPDA 08/14/12 Chronic diastolic (congestive) heart failure (Chronic) Bilateral carotid artery stenosis (Chronic) Right CEA 2016, Left Carotid Stented 2003 Transient ischemic attack (Chronic) Paroxysmal atrial flutter (Chronic) Essential (primary) hypertension (Chronic) Hyperlipidemia (Chronic) Peripheral vascular occlusive disease (Chronic) Bilateral iliac stents, left renal artery stent Medical History: Medical History (Last Reviewed 08/11/19 @ 14:45 by Zofia Mike) Respiratory failure with hypoxia (Resolved) J96.91 Gout (Chronic) M10.9 GERD (gastroesophageal reflux disease) (Chronic) K21.9 Renal artery stenosis (Chronic) I70.1 left sided renal artery stent 2003 Chronic kidney disease, stage 3 (Chronic) N18.3 Stenosis of left subclavian artery (Chronic) I77.1 CVA (cerebral vascular accident) (Chronic) I63.9 Anemia in chronic kidney disease (CKD) (Chronic) N18.9, D63.1 Atherosclerosis of coronary artery of [place] heart without angina pectoris (Chronic) I25.10 CABG x 4: Sequential BALES-LAD an D1, SVG-OM1, SVG-RPDA 08/14/12 Chronic diastolic (congestive) heart failure (Chronic) I50.32 Bilateral carotid artery stenosis (Chronic) I65.23 Right CEA 2016, Left Carotid Stented 2003 Transient ischemic attack (Chronic) G45.9 Paroxysmal atrial flutter (Chronic) I48.92 Essential (primary) hypertension (Chronic) I10 Hyperlipidemia (Chronic) E78.5 Peripheral vascular occlusive disease (Chronic) I73.9 Bilateral iliac stents, left renal artery stent Arthritis M19.90 Allergies No Known Allergies Allergy (Verified 08/25/19 02:15) Home Medications: Ambulatory Orders Medication Instructions Recorded Amlodipine [Norvasc] 10 mg PO DAILY 05/15/16 Atorvastatin Calcium [Lipitor] 80 mg PO DAILY 05/15/16 Doxazosin Mesylate [Cardura] 16 mg PO DAILY 05/15/16 Nitroglycerin [Nitrostat] 0.4 mg SL PRN PRN 05/15/16 hydrALAZINE [Apresoline] 50 mg PO TID 06/27/18 ferrous sulfate 325 mg (65 mg 325 mg PO DAILY 01/16/19 iron) tablet carvedilol 25 mg tablet 50 mg PO BID #180 tab 03/03/19 Ipratropium [place] 1 spray NASAL BID 04/07/19 Albuterol Sulfate [Albuterol 1 puff IN Q4H PRN PRN 08/03/19 Sulfate HFA] Aspirin [Aspirin, Baby] 81 mg PO DAILY 08/03/19 Ezetimibe [Zetia] 10 mg PO DAILY 08/03/19 Multivitamin with Minerals 1 tab PO DAILY 08/03/19 [Multiple Vitamin] Omeprazole 20 mg PO DAILY 08/03/19 Furosemide [Lasix] 60 mg PO BID #180 tab 08/05/19 Potassium Chloride [K-Dur] 60 meq PO BID 08/25/19 Ciprofloxacin [Cipro] 500 mg PO BID #14 tab 08/27/19 metroNIDAZOLE [Flagyl] 500 mg PO TID #21 tab 08/27/19 Surgical History: Surgical History (Last Reviewed 08/11/19 @ 14:45 by Zofia Mike) History of knee replacement (Resolved) Z96.659 H/O colonoscopy (Resolved) Z98.890 2009-repeat 2019 History of right-sided carotid endarterectomy (Resolved) Onset Date: 05/2016 Z98.890 History of herniorrhaphy (Resolved) Z98.890, Z87.19 History of left heart catheterization (Resolved) Onset Date: 08/13/12 Z98.890 History of angioplasty of peripheral vessel (Resolved) Z98.62 Bilateral iliac stents History of stent insertion of renal artery (Resolved) Onset Date: 2003 Z98.890 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, 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 History of left common carotid artery stent placement (Resolved) Onset Date: 2003 Z98.890, Z95.828 H/O basal cell carcinoma excision (Resolved) Onset Date: 09/2018 Z98.890, Z85.828 H/O coronary artery bypass surgery (Chronic) Onset Date: 08/14/12 Z95.1 CABG x 4: Sequential BALES-LAD an D1, SVG-OM1, SVG-RPDA 08/14/12 Surgical History: angioplasty, coronary bypass surgery, total knee arthroplasty, - - CEA, renal artery stent Psychiatric History: No pertinent psych hx Tobacco Use: Cigarettes - *Family History Maternal Family History: Family History (Last Reviewed 08/11/19 @ 14:45 by Zofia Mike) Son CAD (coronary artery disease) Brother CAD (coronary artery disease) Diabetes Brother CAD (coronary artery disease) Diabetes History Items: - - Patient notes no marked maternal family history including heart disease, diabetes, cancer. Paternal Family History: Family History (Last Reviewed 08/11/19 @ 14:45 by Zofia Mike) Son CAD (coronary artery disease) Brother CAD (coronary artery disease) Diabetes Brother CAD (coronary artery disease) Diabetes History Items: Heart Disease, Hypertension Review of Systems Comment: See HPI Patient Problems: Active and Suspected Problems (Last Reviewed 08/11/19 @ 14:45 by Zofia Mike) Diverticulitis (Acute) Pleural effusion due to CHF (congestive heart failure) (Acute) Objective: Chest x-ray shows worsening bilateral pleural effusions, right greater than left - Physical Exam Vitals/I&O's: Vital Signs Temp Pulse Resp BP Pulse Ox 36.9 C 76 20 H 149/61 H 94 08/27/19 14:08 08/27/19 14:14 08/27/19 14:08 08/27/19 14:08 08/27/19 14:08 Oxygen Flow Rate (L/min) [ 8 AMBULATION with Oxygen] Oxygen Flow Rate (L/min) [At 5 REST on Room Air] Oxygen Flow Rate (L/min) 5 Oxygen Delivery Method Nasal Cannula Weight: 72.2 kg Body Mass Index (BMI) 24.2 Intake and Output for Last 24 Hours 08/25/19 08/26/19 08/27/19 23:59 23:59 23:59 Intake Total 2200.00 / 2200.00 1833.75 / 1833.75 350 / 350 Output Total 700 / 700 1500 / 1500 1000 / 1000 Balance 1500.00 / 1500.00 333.75 / 333.75 -650 / -650 General: Alert, Oriented x3, Cooperative, No apparent distress, - - Mild conversational dyspnea HEENT: Atraumatic, PERRLA, EOMI, Normocephalic, - - No scleral icterus or injection noted Oral: Moist Mucosa, No Gingival or Mucosal Lesions/ Ulcerations Neck: Supple, No Nodes, Thyroid Normal Size and Texture, JVD, Right Lungs: No rhonchi, No wheeze, Rales - Bilateral, - - Dullness to percussion at the right base Cardiovascular: Regular rate, Regular Rhythm, Normal S1, Normal S2, Murmur, No rub noted, No Gallop Abdomen: Bowel Sounds Present, Soft, Non Tender, Non-Distended Extremities: No cyanosis, No edema, Capillary Refill Less than 3 Seconds, Clubbing Skin: No rashes, No breakdown Musculoskeletal: No Tenderness to Palpation of Joints or Extremities Lymphatic: No Cervical, Supraclavicular, or Inguinal Adenopathy Neurological: Cranial nerves II-XII grossly intact, Neuro grossly intact, Motor Exam 5/5 strength throughout Psych/Mental Status: Alert and oriented to time, place, person, mood and affect Laboratory Results 08/27/19 12:55: Troponin I 0.022 Current Medications Amlodipine Besylate (Norvasc) 10 mg PO DAILY [facility] Last Admin: 08/27/19 08:38 Dose: 10 mg Documented by: Aspirin (Aspirin, Baby) 81 mg PO DAILY@0800 [facility] Last Admin: 08/27/19 08:37 Dose: 81 mg Documented by: Atorvastatin Calcium (Lipitor) 80 mg PO DAILY@2200 [facility] Last Admin: 08/26/19 20:53 Dose: 80 mg Documented by: Ciprofloxacin HCl (Cipro) 500 mg PO BID [facility] Last Admin: 08/27/19 08:38 Dose: 500 mg Documented by: Doxazosin Mesylate (Cardura) 16 mg PO QHS [facility] Last Admin: 08/26/19 20:52 Dose: 16 mg Documented by: Furosemide (Lasix) 40 mg IV Q8 [facility] Hydralazine HCl (Apresoline) 50 mg PO TID [facility] Last Admin: 08/27/19 14:14 Dose: 50 mg Documented by: Sodium Chloride () 250 mls @ 15 mls/hr IV .[id number] PRN PRN Reason: Saline Flush Sodium Chloride () 250 mls @ 15 mls/hr IV .[id number] PRN PRN Reason: Additional IVPB Infusion Metronidazole (Flagyl) 500 mg PO TID [facility] Last Admin: 08/27/19 14:14 Dose: 500 mg Documented by: Morphine Sulfate () 2 mg IV Q3H PRN PRN PRN Reason: Pain Score 6-10/10 Ondansetron HCl (Zofran) 4 mg IV Q8H PRN PRN PRN Reason: NAUSEA/VOMITING Pantoprazole Sodium (Protonix) 20 mg PO DAILY [facility] Last Admin: 08/27/19 08:38 Dose: 20 mg Documented by: Sodium Chloride () 10 - 40 ml IV UD PRN PRN Reason: SALINE FLUSH Clinical Impression(s) from Imaging Studies Chest X-Ray 08/27/19 12:06 IMPRESSION: Development of bilateral pleural effusions, right greater than left since the previous study. Stable diffuse airspace opacifications in both lung gama. Remote CABG Electronically Signed: Rachid Zelaya MD at 13:04 EDT , Service support , Assessment/Plan All Active Problems (Last Reviewed 08/11/19 @ 14:45 by Zofia Mike) CHF exacerbation (Acute) Elevated troponin (Acute) Hypoxia (Acute) Diverticulitis (Acute) Pleural effusion due to CHF (congestive heart failure) (Acute) History of knee replacement (Resolved) H/O colonoscopy (Resolved) Respiratory failure with hypoxia (Resolved) History of right-sided carotid endarterectomy (Resolved 05/2016) History of herniorrhaphy (Resolved) History of left heart catheterization (Resolved 08/13/12) History of angioplasty of peripheral vessel (Resolved) History of stent insertion of renal artery (Resolved 2003) History of left common carotid artery stent placement (Resolved 2003) H/O basal cell carcinoma excision (Resolved 09/2018) RECOMMENDATIONS: 1. Continue aggressive diuretic therapy 2. Initiate incentive spirometer 3. Wean oxygen as tolerated with walking oximetry prior to discharge 4. Continue baseline medications and antibiotics per hospitalist IMPRESSIONS: 1. Acute on chronic hypoxic respiratory insufficiency secondary to pleural effusion secondary to acute on chronic diastolic CHF Patient has developed right greater than left pleural effusions, likely secondary to fluid overload. Patient does have multiple vasculitides increasing pulmonary vascular resistance and narrowing optimal fluid status. Patient will be placed on diuretic therapy. Continue to watch renal function and electrolytes closely and supplement as necessary. Patient does have underlying pulmonary fibrosis which complicates respiratory status. Outpatient rheumatologic work-up was unremarkable. 2. Mild diverticulitis Patient appears to have responded to Cipro and Flagyl. Patient transition to p.o., which should help fluid status. Abdominal pain is resolved. No hemodynamic instability reported. 3. Advanced age/BPH/GERD/CKD stage III Complicates care, management, recovery and prognosis. Okay to continue with baseline medications for now. Inpatient E&M: 70598 Init Hosp L3
[2019-08-27] MEDS: Doxazosin 4 MG Tablet 16 MG PO (22:35)
[2019-08-27] MEDS: Atorvastatin Calcium 80 MG Tablet PO (22:36)
[2019-08-27] MEDS: 0.9% Saline Lock 10 ML Syringe IV (22:38)
[2019-08-28] VITALS (7 sets, daily range): BP systolic 139–148; BP diastolic 46–69; PULSE 79–96; RESP 16–18; TEMP 36.7–37.3; O2SAT 88–96
[2019-08-28] MEDS: metroNIDAZOLE 500 MG Tablet PO ×2 (04:43→13:14)
[2019-08-28] MEDS: Furosemide 40 MG/4 ML Vial IV ×2 (04:43→13:13)
[2019-08-28] MEDS: hydrALAZINE 50 MG Tablet PO ×2 (04:43→13:13)
[2019-08-28] MEDS: 0.9% Saline Lock 10 ML Syringe IV (04:44)
[2019-08-28 07:03] LABS: Anion Gap 10 (5-15); BUN 55 mg/dL (7-18); BUN/Creat Ratio 25.2 RATIO (10-20); Calcium,Total 8.8 mg/dL (8.5-10.1); Chloride 103 mmol/L (98-107); Creatinine, Serum 2.18 mg/dL (0.70-1.30); EST Glomerular Filtration Rate 32 mL/min (>60); Est Glom Filt Rate - Afr Amer 38 mL/min (>60); Estimated Creatinine Clearance 28.76 ml/min; Glucose 110 mg/dL (74-106); Magnesium 2.3 mg/dL (1.6-2.6); Phosphorus 3.6 mg/dL (2.5-4.9); Potassium 3.5 mmol/L (3.5-5.1); Sodium Level 138 mmol/L (136-145)
[2019-08-28] MEDS: amLODIPine 10 MG Tablet PO (08:41)
[2019-08-28] MEDS: Ciprofloxacin 500 MG Tablet PO (08:42)
[2019-08-28] MEDS: Pantoprazole Sodium 20 MG Tablet PO (08:42)
[2019-08-28] MEDS: Aspirin 81 MG TAB.CHEW PO (08:42)
--- NOTE | 2019-08-28 09:57 | PCM.PN.PUL ---
Patient Problems: Active and Suspected Problems (Last Reviewed 08/11/19 @ 14:45 by Zofia Mike) Diverticulitis (Acute) Pleural effusion due to CHF (congestive heart failure) (Acute) Subjective: Patient did well overnight. Patient responded well to diuresis. Patient reports he feels he is back to his baseline at this time. Patient did have a walking oximetry with nurse this morning and dropped to 88% on 4 L/min. Patient feels that this is his normal exercise tolerance. - Physical Exam Vitals/I&O's: Vital Signs Temp Pulse Resp BP Pulse Ox 36.7 C 79 18 148/46 H 96 08/28/19 08:40 08/28/19 08:40 08/28/19 08:40 08/28/19 08:40 08/28/19 09:04 Oxygen Flow Rate (L/min) [ 4 AMBULATION with Oxygen] Oxygen Flow Rate (L/min) [At 3 REST on Room Air] Oxygen Flow Rate (L/min) 3 Oxygen Delivery Method Nasal Cannula Weight: 72.2 kg Body Mass Index (BMI) 24.2 Intake and Output for Last 24 Hours 08/26/19 08/27/19 08/28/19 23:59 23:59 23:59 Intake Total 1833.75 / 1833.75 590 / 890 600 / 600 Output Total 1500 / 1500 1850 / 2050 525 / 525 Balance 333.75 / 333.75 -1260 / -1160 75 / 75 General: Alert, Oriented x3, Cooperative, No apparent distress, - - No conversational dyspnea. Appears stated age. HEENT: Atraumatic, PERRLA, EOMI, Normocephalic, - - No scleral icterus or injection noted Oral: Moist Mucosa, No Gingival or Mucosal Lesions/ Ulcerations Neck: Supple, No JVD, No Nodes, Trachea Midline Lungs: No rhonchi, No wheeze, Diminished, Rales - Bilateral bases, - - Symmetric expansion. Cardiovascular: Regular rate, Regular Rhythm, Normal S1, Normal S2, Murmur, No rub noted, No Gallop Abdomen: Bowel Sounds Present, Soft, Non Tender, Non-Distended Extremities: No cyanosis, No edema, Capillary Refill Less than 3 Seconds, Clubbing Skin: No rashes, No breakdown Musculoskeletal: No Tenderness to Palpation of Joints or Extremities Lymphatic: No Cervical, Supraclavicular, or Inguinal Adenopathy Neurological: Cranial nerves II-XII grossly intact, Neuro grossly intact, Motor Exam 5/5 strength throughout Psych/Mental Status: Alert and oriented to time, place, person, mood and affect Laboratory Results 08/27/19 12:55: Troponin I 0.022 08/28/19 06:10: Sodium 138, Potassium 3.5, Chloride 103, Carbon Dioxide 25.0, Anion Gap 10, BUN 55 H, Creatinine 2.18 H, Estim Creat Clear Calc 28.76, Est GFR (MDRD) Af Amer 38 L, Est GFR (MDRD) Non-Af 32 L, BUN/Creatinine Ratio 25.2 H, Glucose 110 H, Calcium 8.8, Phosphorus 3.6, Magnesium 2.3 Current Medications Amlodipine Besylate (Norvasc) 10 mg PO DAILY [facility] Last Admin: 08/28/19 08:41 Dose: 10 mg Documented by: Aspirin (Aspirin, Baby) 81 mg PO DAILY@0800 [facility] Last Admin: 08/28/19 08:42 Dose: 81 mg Documented by: Atorvastatin Calcium (Lipitor) 80 mg PO DAILY@2200 [facility] Last Admin: 08/27/19 22:36 Dose: 80 mg Documented by: Ciprofloxacin HCl (Cipro) 500 mg PO BID [facility] Last Admin: 08/28/19 08:42 Dose: 500 mg Documented by: Doxazosin Mesylate (Cardura) 16 mg PO QHS [facility] Last Admin: 08/27/19 22:35 Dose: 16 mg Documented by: Furosemide (Lasix) 40 mg IV Q8 [facility] Last Admin: 08/28/19 04:43 Dose: 40 mg Documented by: Hydralazine HCl (Apresoline) 50 mg PO TID [facility] Last Admin: 08/28/19 04:43 Dose: 50 mg Documented by: Sodium Chloride () 250 mls @ 15 mls/hr IV .[id number] PRN PRN Reason: Saline Flush Sodium Chloride () 250 mls @ 15 mls/hr IV .[id number] PRN PRN Reason: Additional IVPB Infusion Metronidazole (Flagyl) 500 mg PO TID [facility] Last Admin: 08/28/19 04:43 Dose: 500 mg Documented by: Morphine Sulfate () 2 mg IV Q3H PRN PRN PRN Reason: Pain Score 6-10/10 Ondansetron HCl (Zofran) 4 mg IV Q8H PRN PRN PRN Reason: NAUSEA/VOMITING Pantoprazole Sodium (Protonix) 20 mg PO DAILY [facility] Last Admin: 08/28/19 08:42 Dose: 20 mg Documented by: Sodium Chloride () 10 - 40 ml IV UD PRN PRN Reason: SALINE FLUSH Last Admin: 08/28/19 04:44 Dose: 10 ml Documented by: Clinical Impression(s) from Imaging Studies Chest X-Ray 08/27/19 12:06 IMPRESSION: Development of bilateral pleural effusions, right greater than left since the previous study. Stable diffuse airspace opacifications in both lung gama. Remote CABG Electronically Signed: Rachid Zelaya MD at 13:04 EDT , Service support , Medical Necessity - Tobacco Use Tobacco Use: Cigarettes Assessment/Plan All Active Problems (Last Reviewed 08/11/19 @ 14:45 by Zofia Mike) CHF exacerbation (Acute) Elevated troponin (Acute) Hypoxia (Acute) Diverticulitis (Acute) Pleural effusion due to CHF (congestive heart failure) (Acute) History of knee replacement (Resolved) H/O colonoscopy (Resolved) Respiratory failure with hypoxia (Resolved) History of right-sided carotid endarterectomy (Resolved 05/2016) History of herniorrhaphy (Resolved) History of left heart catheterization (Resolved 08/13/12) History of angioplasty of peripheral vessel (Resolved) History of stent insertion of renal artery (Resolved 2003) History of left common carotid artery stent placement (Resolved 2003) H/O basal cell carcinoma excision (Resolved 09/2018) RECOMMENDATIONS: 1. Okay to resume baseline diuretic therapy 2. Keep saturations greater than 90% at all times using home pulse oximeter 3. Wean oxygen as tolerated with walking oximetry prior to discharge 4. Continue baseline medications and antibiotics per hospitalist 5. Okay to discharge from pulmonary perspective with routine follow-up as previously planned IMPRESSIONS: 1. Acute on chronic hypoxic respiratory insufficiency secondary to pleural effusion secondary to acute on chronic diastolic CHF Patient has developed right greater than left pleural effusions, likely secondary to fluid overload. Patient does have multiple vasculitides increasing pulmonary vascular resistance and narrowing optimal fluid status. Patient responded well to diuretic therapy. Okay to resume baseline diuretic dosing from my perspective. Patient does have underlying pulmonary fibrosis which complicates respiratory status. Outpatient rheumatologic work-up was unremarkable. 2. Mild diverticulitis Patient appears to have responded to Cipro and Flagyl. Patient transition to p.o., which should help fluid status. Abdominal pain is resolved. No hemodynamic instability reported. 3. Advanced age/BPH/GERD/CKD stage III Complicates care, management, recovery and prognosis. Okay to continue with baseline medications for now. Inpatient E&M: 55134 Subs Hosp L2
--- NOTE | 2019-08-28 10:27 | NURSING ---
Pt sating 84% RA. 94-97% on 3L. Ambulated around [place], started on 3L pt 02 sats dropped to 85%, oxygen increased to 4L pt increased to 88%. Oxygen increased to 6L sats 90%. Unable to titrate on portable take to 5L. I feel patient would benefit from 5L with ambulation. Discussed with rn appeals. Pt states still feeling SOB with ambulation but much improvement since 08/26.
--- NOTE | 2019-08-28 11:00 | CASEMGMT ---
RN HAILEY updated that patient will need increase oxygen at home. JEROD HART received script for updated oxygen and sent to [facility], who patient is established with. Patient has portable tank at home. Patient voiced no further needs at discharge.
--- NOTE | 2019-08-31 14:25 | CASEMGMT ---
JEROD HART Discharge Follow-up Phone Call: NEDA: Sunil Strata: 4 Call Date: 08/31/2019 Discharge Date: 08/28/2019 Time of Call: 1425 Duration: 2 min Admitting Diagnosis: diverticulitis JEROD HART attempted to complete follow-up phone after recent hospitalization. JEROD HART called both cell and home numbers, no answer, no voicemail box or answering service to leave message. Patient went home on increased home oxygen.
== END 2019-08-28 13:30 | disposition home or self-care (01) | DRG 391 ==
LOC: ED 03:35 → MS3 05:29
PROVIDERS: Internal Medicine Critical Care Medicine; Admitting Provider Family Medicine; Emergency Provider Emergency Medicine; PCP Family Medicine; Visit Provider Family Medicine
DX: K57.92 Diverticulitis of intestine, part unspecified, without perforation or abscess without bleeding (principal); I50.33 Acute on chronic diastolic (congestive) heart failure; I13.0 Hypertensive heart and chronic kidney disease with heart failure and stage 1 through stage 4 chronic kidney disease, or unspecified chronic kidney disease; I48.92 Unspecified atrial flutter; N18.3 Chronic kidney disease, stage 3 (moderate); N40.0 Benign prostatic hyperplasia without lower urinary tract symptoms; M1A.9XX0 Chronic gout, unspecified, without tophus (tophi); K21.9 Gastro-esophageal reflux disease without esophagitis; I48.0 Paroxysmal atrial fibrillation; I35.0 Nonrheumatic aortic (valve) stenosis; I27.20 Pulmonary hypertension, unspecified; I25.10 Atherosclerotic heart disease of native coronary artery without angina pectoris; E78.5 Hyperlipidemia, unspecified; D63.1 Anemia in chronic kidney disease; I77.1 Stricture of artery; R06.89 Other abnormalities of breathing; J84.10 Pulmonary fibrosis, unspecified; K52.9 Noninfective gastroenteritis and colitis, unspecified; M19.90 Unspecified osteoarthritis, unspecified site; Z79.899 Other long term (current) drug therapy; Z79.82 Long term (current) use of aspirin; Z98.890 Other specified postprocedural states; Z98.62 Peripheral vascular angioplasty status; Z99.81 Dependence on supplemental oxygen; Z96.659 Presence of unspecified artificial knee joint; Z95.1 Presence of aortocoronary bypass graft; Z87.891 Personal history of nicotine dependence; Z86.73 Personal history of transient ischemic attack (TIA), and cerebral infarction without residual deficits; Z85.828 Personal history of other malignant neoplasm of skin
CPT/HCPCS: 36415; 71045; 71046; 74176; 80048; 80053; 81001; 83690; 83735; 84100; 84484; 85025; 93005; 99251; 99284; J7030; J7040; J7050; A4216; G0463; J0744; J1940; J2405

== ENCOUNTER → 2019-08-31 12:43 | Outpatient (CLI) | payer MEDICARE, OTHER, SELFPAY ==
[2019-08-31 11:27] VITALS: BMI 24.3
--- NOTE | 2019-08-31 12:45 | RAD_ITS ---
STUDY: X-RAY CHEST REASON FOR EXAM: Male, 74 years old. INCREASING SHORTNESS OF BREATH TECHNIQUE: PA and lateral views of the chest. COMPARISON: Comparison is made with prior study dated August 27, 2019. FINDINGS: Small bilateral pleural effusions. The right pleural effusion as improved as compared to prior study. Residual mild increased markings at the lung bases suggestive of bibasilar atelectasis. Mild degree of vascular congestion. Sternal cerclage wires and vascular clips are present from a prior sternotomy and coronary artery bypass graft procedure (CABG). Normal mediastinum and memo. There is prominence of the pulmonary hilar arteries without peripheral pulmonary vascular congestion, suggesting pulmonary hypertension. There is atherosclerotic calcification of the aortic arch with tortuosity. There are diffuse degenerative changes of the visualized thoracic spine. Normal visualized ribs, clavicles, and shoulders. There is no demonstrated abnormality of the visualized soft tissue structures of the upper abdomen. RAD/Chest PA and Lateral IMPRESSION: Small residual bilateral pleural effusions with bibasilar atelectasis. The right pleural-parenchymal change as improved. Mild degree of residual vascular congestion. Electronically Signed: Boy Bocanegra, at 12:58 EDT , Service support ,
== END ==
PROVIDERS: PCP Family Medicine; Referring Provider Nurse Practitioner Family; Visit Provider Nurse Practitioner Family
DX: R06.00 Dyspnea, unspecified (principal); I50.9 Heart failure, unspecified; N18.9 Chronic kidney disease, unspecified
CPT/HCPCS: 71046; 80048; A4216; J1940

== ENCOUNTER → 2019-08-31 14:08 | Outpatient (CLI) | payer MEDICARE, OTHER, SELFPAY ==
[2019-08-31 11:27] VITALS: BMI 24.3
[2019-08-31] MEDS: 0.9% NaCl PICC Flush IV (14:42)
[2019-08-31] MEDS: Furosemide 40 MG/4 ML Vial 60 MG IV (14:45)
[2019-08-31 14:54] VITALS: BP 143/59; PULSE 68; RESP 18; TEMP 36.4; O2SAT 97; BMI 24.3
[2019-08-31 15:38] LABS: Anion Gap 7 (5-15); BUN 58 mg/dL (7-18); BUN/Creat Ratio 22.1 RATIO (10-20); Calcium,Total 8.4 mg/dL (8.5-10.1); Chloride 110 mmol/L (98-107); Creatinine, Serum 2.63 mg/dL (0.70-1.30); EST Glomerular Filtration Rate 25 mL/min (>60); Est Glom Filt Rate - Afr Amer 31 mL/min (>60); Estimated Creatinine Clearance 23.84 ml/min; Glucose 150 mg/dL (74-106); Potassium 4.3 mmol/L (3.5-5.1); Sodium Level 142 mmol/L (136-145)
== END ==
PROVIDERS: PCP Family Medicine; Referring Provider Nurse Practitioner Family; Visit Provider Nurse Practitioner Family
DX: I50.9 Heart failure, unspecified (principal)
CPT/HCPCS: 80048; A4216; J1940

== ENCOUNTER → 2019-09-01 | Outpatient (CLI) | payer MEDICARE, OTHER, SELFPAY ==
[2019-08-31 11:27] VITALS: BMI 24.3
[2019-08-31 14:54] VITALS: BMI 24.3
[2019-09-01 14:00] VITALS: BP 145/65; PULSE 70; RESP 26; TEMP 36.7; O2SAT 97; BMI 24.0
[2019-09-01] MEDS: Furosemide 40 MG/4 ML Vial 60 MG IV (14:03)
[2019-09-01] MEDS: 0.9% NaCl PICC Flush IV ×2 (14:03→14:09)
[2019-09-01 14:32] LABS: Anion Gap 7 (5-15); BUN 56 mg/dL (7-18); Calcium,Total 8.5 mg/dL (8.5-10.1); Chloride 108 mmol/L (98-107); Creatinine, Serum 2.55 mg/dL (0.70-1.30); EST Glomerular Filtration Rate 26 mL/min (>60); Est Glom Filt Rate - Afr Amer 32 mL/min (>60); Estimated Creatinine Clearance 24.59 ml/min; Glucose 128 mg/dL (74-106); Potassium 4.5 mmol/L (3.5-5.1); Sodium Level 141 mmol/L (136-145)
== END | disposition home or self-care (01) ==
LOC: MEDOUTP 13:49
PROVIDERS: PCP Family Medicine; Referring Provider Nurse Practitioner Family; Visit Provider Nurse Practitioner Family
DX: I50.9 Heart failure, unspecified (principal); N18.9 Chronic kidney disease, unspecified; R06.00 Dyspnea, unspecified
CPT/HCPCS: 80048; A4216; J1940

== ENCOUNTER → 2019-09-02 | Outpatient (CLI) | payer MEDICARE, OTHER, SELFPAY ==
[2019-08-31 11:27] VITALS: BMI 24.3
[2019-09-01 14:00] VITALS: BMI 24.0
[2019-09-02 14:02] VITALS: BP 140/63; PULSE 70; RESP 20; TEMP 36.2; O2SAT 93; BMI 24.0
[2019-09-02] MEDS: Furosemide 20 MG/2 ML VIAL 60 MG IV (14:09)
[2019-09-02] MEDS: 0.9% NaCl Peripheral Flush Adult/Peds IV (14:10)
[2019-09-02 14:49] LABS: Anion Gap 5 (5-15); BUN 51 mg/dL (7-18); BUN/Creat Ratio 19.5 RATIO (10-20); Calcium,Total 8.3 mg/dL (8.5-10.1); Chloride 111 mmol/L (98-107); Creatinine, Serum 2.61 mg/dL (0.70-1.30); EST Glomerular Filtration Rate 26 mL/min (>60); Est Glom Filt Rate - Afr Amer 31 mL/min (>60); Estimated Creatinine Clearance 24.02 ml/min; Glucose 159 mg/dL (74-106); Potassium 4.2 mmol/L (3.5-5.1); Sodium Level 142 mmol/L (136-145)
[2019-09-02 22:36] LABS: Xtra Tube EP Lab EXTRA TUBE
== END | disposition home or self-care (01) ==
LOC: MEDOUTP 13:48
PROVIDERS: PCP Family Medicine; Referring Provider Nurse Practitioner Family; Visit Provider Nurse Practitioner Family
DX: I50.9 Heart failure, unspecified (principal); N18.9 Chronic kidney disease, unspecified; R06.00 Dyspnea, unspecified
CPT/HCPCS: 96374; 80048; A4216; J1940

== ENCOUNTER → 2019-10-06 | Outpatient (CLI) | payer MEDICARE, OTHER, SELFPAY ==
[2019-09-25 09:38] VITALS: BMI 26.6
[2019-10-06 14:05] LABS: Anion Gap 7 (5-15); BUN 58 mg/dL (7-18); Calcium,Total 8.8 mg/dL (8.5-10.1); Chloride 96 mmol/L (98-107); Creatinine, Serum 2.42 mg/dL (0.70-1.30); EST Glomerular Filtration Rate 28 mL/min (>60); Est Glom Filt Rate - Afr Amer 34 mL/min (>60); Glucose 92 mg/dL (74-106); Sodium Level 138 mmol/L (136-145)
== END | disposition home or self-care (01) ==
PROVIDERS: Nurse Practitioner Family; PCP Family Medicine; Referring Provider Internal Medicine Nephrology; Visit Provider Internal Medicine Nephrology
DX: N18.3 Chronic kidney disease, stage 3 (moderate) (principal)
CPT/HCPCS: 36415; 80048

== ENCOUNTER 2019-10-14 08:21 | Emergency (ER) | payer MEDICARE, OTHER, SELFPAY ==
[2019-09-25 09:38] VITALS: BMI 26.6
[2019-10-14 08:22] VITALS: BP 147/57; PULSE 74; RESP 17; TEMP 36.3; O2SAT 99; BMI 22.6
--- NOTE | 2019-10-14 08:35 | VDUE_ITS ---
Reason For Study: Swelling Left Proximal Left jugular vein is spontaneous, widely patent, phasic, with no intraluminal echogenicity noted. Left subclavian vein is spontaneous, widely patent, phasic, with no intraluminal echogenicity noted. Left Arm Left axillary vein is spontaneous, patent, phasic, competent, compressible and demonstrates augmentation. Left brachial vein is compressible. Left cephalic vein is compressible. Left basilic vein is compressible. Left Lower Arm Left radial vein is compressible. Left ulnar vein is compressible. Patient Safety Prelim to [place]. Interpretation Summary No evidence for acute deep venous thrombosis[left] upper extremity with patent and compressible cephalic and basilic veins. Ordering Physician: Brien Matamoros Referring Physician: Jeremiah Mendoza Performed By: Karena Alas RVT ?
[2019-10-14 09:05] LABS: Absolute Neutrophil Count 10.8 X10^3/uL (2.0-7.7); Basophil# 0.05 X10^3/uL; Basophil% 0.4 % (0-1); Eosinophil# 0.12 X10^3/uL; Eosinophils% 0.9 % (0-5); Hemoglobin 9.6 g/dL (13.0-16.5); Lymphocyte % 6.2 % (19-41); Mean Corpuscular Hgb 25.5 pg (27.0-32.0); Mean Corpuscular Volume 82.2 fL (80-94); Mean Platelet Vol. 9.5 fl (6.2-12.0); Monocyte% 8.5 % (0-10); NRBC Flagged by Analyzer 0 % (0-5); Neutrophil # 10.83 X10^3/uL (2.7-7.7); Neutrophil % 83.4 % (47-70); Platelet Count 266 K/mm3 (150-450); RBC Distribution Width CV 18.4 % (11.6-14.6); RBC Distribution Width SD 55.4 fl (35.1-43.9); Red Blood Count 3.77 M/mm3 (4.6-6.2)
[2019-10-14 09:22] LABS: Anion Gap 8 (5-15); BUN 34 mg/dL (7-18); BUN/Creat Ratio 21.1 RATIO (10-20); Calcium,Total 8.9 mg/dL (8.5-10.1); Chloride 100 mmol/L (98-107); Creatinine, Serum 1.61 mg/dL (0.70-1.30); EST Glomerular Filtration Rate 45 mL/min (>60); Est Glom Filt Rate - Afr Amer 54 mL/min (>60); Estimated Creatinine Clearance 38.48 ml/min; Glucose 125 mg/dL (74-106); Potassium 4.2 mmol/L (3.5-5.1); Sodium Level 135 mmol/L (136-145)
--- NOTE | 2019-10-14 09:37 | ED.DCSUM_ITS ---
- ER Visit Summary Date of Service: 10/14/19 Chief Complaint: [Pain to left wrist and elbow History of present illness: The patient is a [age]-year-old male who presents to the emergency department with pain in his left wrist and elbow that started 4 days ago. tells me that on October 01 he had a procedure at the [facility] where he had some stents placed into his renal arteries and the arteries to his got and the procedure took place through his left arm. Patient denies any fevers at home. Patient is right-hand dominant. Patient has history of gout and apparently because of delays with their shipments and pharmacy he is not been on his typical regimen of meds for the gout. Patient normally gets gout in his big toe.] Physical Examination: [HEENT-PERRLA, EOMI. Cranial nerves II through XII grossly intact. TMs clear. Mucous membranes moist. No adenopathy. Cardiovascular-regular rate and rhythm without murmur or ectopy Lungs-clear to auscultation, chest wall stable without crepitus or subcu emphysema Abdomen-normoactive bowel sounds, soft, nontender, no rebound or rigidity, no peritoneal signs. Extremities-intact ?4, normal range of motion, normal pulses. Left arm-patient has some diffuse all tissue swelling over the wrist and the dorsum of the hand. Patient has tenderness with range of motion at the wrist and elbow. Skin is slightly erythematous and warm to the touch. He is neurovascular intact distally. Test Results: [Venous duplex of the left upper extremity was negative for DVT. CBC with a ferritin of 13.0, hemoglobin 9.6, hematocrit 31, placed to 66. Chemistries unremarkable. BUN was 34 creatinine was 1.61. 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 Patient was started on prednisone. I will cover him with Keflex as well although my suspicion for septic arthritis is low. Patient had blood cultures ordered and those will be pending.] Treatment Plan: [Patient will be treated with prednisone, Trevor, and Keflex.] Disposition: [] Impression: [] This note was generated with [employer] dictation software. It may contain incorrect words, spelling, and punctuation that were not noted in review of the chart prior to signing ED Disposition - Plan for ED Patient: Referrals: Jeremiah Mendoza MD [Primary Care Provider] -
--- NOTE | 2019-10-14 09:51 | DCINST.ED_ITS ---
ED Disposition - Plan for ED Patient: Instructions: ED ARTHRITIS Gout Prescriptions: Prednisone [Deltasone] 20 mg PO BID #10 tab Prescription Printed Cephalexin [Keflex] 500 mg PO Q6 #40 cap Prescription Printed Hydrocodone Bitart/Apap 5-325 [[place]ford 5MG-325MG] 1 tab PO Q4H PRN PRN 2 Days #14 tab PRN Reason: Pain Prescription Printed Referrals: Jeremiah Mendoza MD [Primary Care Provider] - Eber Drew MD [STAFF PHYSICIAN] - 3-5 Days
[2019-10-14 10:41] VITALS: BP 166/61; O2SAT 100
[2019-10-14] MEDS: predniSONE 20 MG Tablet 40 MG PO (10:46)
[2019-10-14] MEDS: Cephalexin 250 MG Capsule 500 MG PO (10:46)
== END 2019-10-14 11:01 | disposition home or self-care (01) ==
LOC: ED 09:15
PROVIDERS: Emergency Provider Emergency Medicine; PCP Family Medicine
DX: M10.9 Gout, unspecified (principal); M79.89 Other specified soft tissue disorders; I25.10 Atherosclerotic heart disease of native coronary artery without angina pectoris; I12.9 Hypertensive chronic kidney disease with stage 1 through stage 4 chronic kidney disease, or unspecified chronic kidney disease; I50.9 Heart failure, unspecified; N18.9 Chronic kidney disease, unspecified; D63.1 Anemia in chronic kidney disease; I73.9 Peripheral vascular disease, unspecified; Z86.73 Personal history of transient ischemic attack (TIA), and cerebral infarction without residual deficits; Z79.899 Other long term (current) drug therapy
CPT/HCPCS: 80048; 84550; 85025; 87040; 93971; 99284; A4216

== ENCOUNTER → 2019-11-10 | Outpatient (CLI) | payer MEDICARE, OTHER, SELFPAY ==
[2019-09-25 09:38] VITALS: BMI 26.6
--- NOTE | 2019-11-11 06:17 | EKG12_ITS ---
Test Reason : ABNORMAL EKG Blood Pressure : / mmHG Vent. Rate : 065 BPM Atrial Rate : 065 BPM P-R Int : 236 ms QRS Dur : 100 ms QT Int : 460 ms P-R-T Axes : 068 055 168 degrees QTc Int : 478 ms Sinus rhythm with 1st degree A-V block Left ventricular hypertrophy with repolarization abnormality Abnormal ECG When compared with ECG of 27-AUG-2019 13:53, No significant change was found Confirmed by ANA DIAZ, DAVID ([id number]), assistant editor JEFFREY ALANIZ ([id number]) on 11/16/2019 1:32:05 PM Referred By: Ian Rogers Confirmed By:ARY PEREZ MD
== END | disposition home or self-care (01) ==
LOC: SL 20:16
PROVIDERS: PCP Family Medicine; Referring Provider Internal Medicine Critical Care Medicine; Visit Provider Internal Medicine Critical Care Medicine
DX: G47.33 Obstructive sleep apnea (adult) (pediatric) (principal); R94.31 Abnormal electrocardiogram [ECG] [EKG]
CPT/HCPCS: 93005; 95810

== ENCOUNTER → 2019-11-24 | Outpatient (CLI) | payer MEDICARE, OTHER, SELFPAY ==
[2019-09-25 09:38] VITALS: BMI 26.6
[2019-11-24 08:42] VITALS: PULSE 102; PULSE 81; PULSE 91; PULSE 93; PULSE 96; O2SAT 85; O2SAT 91; O2SAT 92; O2SAT 94; O2SAT 95; O2SAT 97
--- NOTE | 2019-11-24 08:46 | CPS ---
Patient arrived on 1L pulse dose O2. Patient was taken off O2 and I had a Room Air resting pulse dose of 91%. On the first minute of the walk the patient desaturated to 84% and 1L pulse dose was applied. Patient at the 2 min ansley on 1L pulse dose desaturated. Patient was then placed on 2L continuous O2. At the next min ansley patient desaturated and patient was increased to 3L continuous. Patient continued test on 3L continuous and SpO2 stayed above 90%. Pierre PATIENT REGISTRATION MANAGER
[2019-11-24 10:38] LABS: Anion Gap 6 (5-15); BUN 40 mg/dL (7-18); Calcium,Total 9.1 mg/dL (8.5-10.1); Chloride 106 mmol/L (98-107); Creatinine, Serum 1.67 mg/dL (0.70-1.30); EST Glomerular Filtration Rate 43 mL/min (>60); Est Glom Filt Rate - Afr Amer 52 mL/min (>60); Glucose 116 mg/dL (74-106); Potassium 4.5 mmol/L (3.5-5.1); Sodium Level 138 mmol/L (136-145)
--- NOTE | 2019-11-25 08:32 | PCM.PSN.6M ---
PSN 6 Minute Walk Test - 6 Minute Walk Test 6 Minute Walk Test: 6 Minute Walk Test PSN:6-Minute Walk Test Start: 11/24/19 08:42 Freq: Status: Active Protocol: RESP.6MINW Document 11/24/19 08:42 JENNIFER (Rec: 11/24/19 08:53 JENNIFER [id number]) 6 Minute Walk Test Date Performed 11/24/19 Time Performed 08:15 Height 5 ft 8 in Weight: 149 lb Weight in Pounds 149.[address]: Ian Rogers Assistive device used: None Pre-test Oxygen Delivery Method Room Air Pulse Ox (%) 91 Pulse Rate (60-100 beats/min) 81 Dyspnea Charan Scale (0-10) 0 Exertion Charan Scale (6-20) 6 1st minute Oxygen Delivery Method Room Air Pulse Ox (%) 94 Pulse Rate (60-100 beats/min) 91 Dyspnea Charan Scale (0-10) 0 2nd minute Oxygen Flow Rate (L/min) (L/min) 1 Oxygen Delivery Method Nasal Cannula Pulse Ox (%) 85 Pulse Rate (60-100 beats/min) 96 3rd minute Oxygen Flow Rate (L/min) (L/min) 2 Oxygen Delivery Method Nasal Cannula Pulse Ox (%) 94 Pulse Rate (60-100 beats/min) 93 4th minute Oxygen Flow Rate (L/min) (L/min) 3 Oxygen Delivery Method Nasal Cannula Pulse Ox (%) 97 Pulse Rate (60-100 beats/min) 93 5th minute Oxygen Flow Rate (L/min) (L/min) 3 Oxygen Delivery Method Nasal Cannula Pulse Ox (%) 92 Pulse Rate (60-100 beats/min) 93 6th minute Oxygen Flow Rate (L/min) (L/min) 3 Oxygen Delivery Method Nasal Cannula Pulse Ox (%) 94 Pulse Rate (60-100 beats/min) 102 H Dyspnea Charan Scale (0-10) 0 Exertion Charan Scale (6-20) 12 Post-test Oxygen Flow Rate (L/min) (L/min) 3 Oxygen Delivery Method Nasal Cannula Pulse Ox (%) 95 Pulse Rate (60-100 beats/min) 91 Full Laps Walked 17 Partial Lap, Number of Tiles Walked 0 Total Distance Walked (ft) 1003 11/24/19 08:46 Cardiopulmonary Services by Brittaney Arriaza Patient arrived on 1L pulse dose O2. Patient was taken off O2 and I had a Room Air resting pulse dose of 91%. On the first minute of the walk the patient desaturated to 84% and 1L pulse dose was applied. Patient at the 2 min ansley on 1L pulse dose desaturated. Patient was then placed on 2L continuous O2. At the next min ansley patient desaturated and patient was increased to 3L continuous. Patient continued test on 3L continuous and SpO2 stayed above 90%. Pierre ONEIL Initialized on 11/24/19 08:46 - END OF NOTE - Interpretation Interpretation: The patient ambulated 1003 feet over the course of 6 minutes beginning on room air without assistive devices or breaks. Pretesting oxygen saturation was noted to be 91% on room air. With ambulation, the matt oxygen saturation was 84%, requiring an escalation in supplemental oxygen flow rate to 3 L/min in order to maintain appropriate oxygen saturations. - Recommendations Recommendations: 3 L/min of continuous flow supplemental oxygen should be utilized with exertion.
== END | disposition home or self-care (01) ==
PROVIDERS: Internal Medicine Nephrology; PCP Family Medicine; Referring Provider Internal Medicine Critical Care Medicine; Visit Provider Internal Medicine Critical Care Medicine
DX: J96.11 Chronic respiratory failure with hypoxia (principal); N18.3 Chronic kidney disease, stage 3 (moderate)
CPT/HCPCS: 36415; 80048; 94618

== ENCOUNTER → 2019-12-07 | Outpatient (CLI) | payer MEDICARE, OTHER, SELFPAY ==
[2019-11-27 08:56] VITALS: BMI 22.6
[2019-12-02 15:00] VITALS: BMI 22.1
--- NOTE | 2019-12-07 09:07 | RAD_ITS ---
STUDY: X-RAY - LEFT WRIST REASON FOR EXAM: Male, 74 years old. CHRONIC PAIN, NKI -- PT IS AWARE OF METAL IN ARM- NOT SURE OF HOW OR WHEN IT GOT THERE TECHNIQUE: 3 view(s) of the wrist were obtained. COMPARISON: None. FINDINGS: There is demineralization of the radius and ulna. There is degenerative arthrosis of the radiocarpal articulation. There is degenerative arthrosis of the distal radioulnar articulation. There is demineralization of the carpal bones. There is degenerative arthrosis of the carpal articulations. There is degenerative arthrosis of the carpometacarpal articulation of the thumb. There is degenerative arthrosis with of the second through fifth carpometacarpal. There is demineralization of the metacarpal bones. The soft tissue structures are unremarkable. RAD/Wrist min 3 Views IMPRESSION: Degenerative arthrosis of the wrist. Electronically Signed: Madhu Eric, at 13:54 EDT Tel , Service support ,
[2019-12-07] MEDS: Zolpidem Tartrate 5 MG Tablet PO (21:30)
== END | disposition home or self-care (01) ==
LOC: SL 21:54
PROVIDERS: PCP Internal Medicine; Referring Provider Nurse Practitioner Acute Care; Visit Provider Nurse Practitioner Acute Care
DX: G47.33 Obstructive sleep apnea (adult) (pediatric) (principal); M25.532 Pain in left wrist
CPT/HCPCS: 73110; 95811

== ENCOUNTER → 2019-12-29 12:01 | Outpatient (CLI) | payer MEDICARE, OTHER, SELFPAY ==
[2019-12-02 15:00] VITALS: BMI 22.1
== END ==
PROVIDERS: PCP Internal Medicine; Visit Provider Nurse Practitioner Acute Care
DX: Z46.89 Encounter for fitting and adjustment of other specified devices (principal)

== ENCOUNTER → 2020-01-12 11:00 | Outpatient (CLI) | payer MEDICARE, OTHER, SELFPAY ==
[2019-12-02 15:00] VITALS: BMI 22.1
== END ==
PROVIDERS: PCP Internal Medicine; Referring Provider Nurse Practitioner Acute Care; Visit Provider Nurse Practitioner Acute Care
DX: G47.33 Obstructive sleep apnea (adult) (pediatric) (principal)
CPT/HCPCS: 98960; G0463

== ENCOUNTER → 2020-02-29 09:13 | Outpatient (CLI) | payer MEDICARE, OTHER, SELFPAY ==
[2020-02-10 11:12] VITALS: BMI 24.1
[2020-02-29 09:54] LABS: Protein, Urine (Random) 21.8 mg/dL (<11.9); Protein:Creat Ratio 295 mg/g CRE (0-200)
[2020-02-29 10:11] LABS: Anion Gap 5 (5-15); BUN 47 mg/dL (7-18); BUN/Creat Ratio 24.2 RATIO (10-20); Calcium,Total 8.8 mg/dL (8.5-10.1); Chloride 106 mmol/L (98-107); Creatinine, Serum 1.94 mg/dL (0.70-1.30); EST Glomerular Filtration Rate 36 mL/min (>60); Est Glom Filt Rate - Afr Amer 44 mL/min (>60); Glucose 112 mg/dL (74-106); Potassium 4.4 mmol/L (3.5-5.1); Sodium Level 141 mmol/L (136-145)
== END ==
PROVIDERS: PCP Internal Medicine; Referring Provider Internal Medicine Nephrology; Visit Provider Internal Medicine Nephrology
DX: N18.30 Chronic kidney disease, stage 3 unspecified (principal)
CPT/HCPCS: 36415; 80048; 82570; 84156

== ENCOUNTER → 2020-03-22 10:51 | Outpatient (CLI) | payer MEDICARE, OTHER, SELFPAY ==
[2020-02-10 11:12] VITALS: BMI 24.1
[2020-03-02 08:32] VITALS: BMI 24.7
[2020-03-22 11:28] VITALS: PULSE 71; PULSE 75; PULSE 81; PULSE 84; PULSE 88; PULSE 89; O2SAT 86; O2SAT 87; O2SAT 89; O2SAT 91; O2SAT 93; O2SAT 94
--- NOTE | 2020-03-22 11:35 | CPS ---
Pt remained on room air until the 3 minutes. Pt was 87% at 3 lpm and placed on the current 1 lpm pulse dose. At the 6 minute pt had desaturated to 86% on the 1 lpm pulse dose. Pt was increased to 2 lpm pulse dose and walk was restarted. At 6min 48 seconds pt desaturated to 89% and was increased to 3lpm pulse dose. Pt was walked for another 1 min 12 seconds on 3 and mainted saturation 91%.
--- NOTE | 2020-03-22 14:52 | PCM.PSN.6M ---
PSN 6 Minute Walk Test - 6 Minute Walk Test 6 Minute Walk Test: 6 Minute Walk Test PSN:6-Minute Walk Test Start: 03/22/20 11:28 Freq: Status: Active Protocol: RESP.6MINW Document 03/22/20 11:28 [facility] (Rec: 03/22/20 11:43 [facility] [id number]) 6 Minute Walk Test Date Performed 03/22/20 Time Performed 11:00 Height 5 ft 9 in Weight: 73.028 kg Weight in Pounds 161.[address]: Dr Rogers Assistive device used: None Pre-test Oxygen Delivery Method Room Air Pulse Ox (%) 94 Pulse Rate (60-100 beats/min) 71 Dyspnea Charan Scale (0-10) 0 Exertion Charan Scale (6-20) 6 1st minute Oxygen Delivery Method Room Air Pulse Ox (%) 91 Pulse Rate (60-100 beats/min) 81 2nd minute Oxygen Delivery Method Room Air Pulse Ox (%) 89 Pulse Rate (60-100 beats/min) 84 3rd minute Oxygen Delivery Method Room Air Pulse Ox (%) 87 Pulse Rate (60-100 beats/min) 88 Dyspnea Charan Scale (0-10) 0.5 Exertion Charan Scale (6-20) 8 4th minute Oxygen Flow Rate (L/min) (L/min) 1 Oxygen Delivery Method Nasal Cannula Pulse Ox (%) 93 Pulse Rate (60-100 beats/min) 75 5th minute Oxygen Flow Rate (L/min) (L/min) 1 Oxygen Delivery Method Nasal Cannula Pulse Ox (%) 89 Pulse Rate (60-100 beats/min) 81 6th minute Oxygen Flow Rate (L/min) (L/min) 1 Oxygen Delivery Method Nasal Cannula Pulse Ox (%) 86 Pulse Rate (60-100 beats/min) 89 Dyspnea Charan Scale (0-10) 1 Exertion Charan Scale (6-20) 11 Post-test Oxygen Flow Rate (L/min) (L/min) 3 Oxygen Delivery Method Nasal Cannula Pulse Ox (%) 91 Pulse Rate (60-100 beats/min) 75 Dyspnea Charan Scale (0-10) 1 Exertion Charan Scale (6-20) 11 Full Laps Walked 17 Partial Lap, Number of Tiles Walked 15 Total Distance Walked (ft) 1018 03/22/20 11:35 Cardiopulmonary Services by Ciarra King Pt remained on room air until the 3 minutes. Pt was 87% at 3 lpm and placed on the current 1 lpm pulse dose. At the 6 minute pt had desaturated to 86% on the 1 lpm pulse dose. Pt was increased to 2 lpm pulse dose and walk was restarted. At 6min 48 seconds pt desaturated to 89% and was increased to 3lpm pulse dose. Pt was walked for another 1 min 12 seconds on 3 and mainted saturation 91%. Initialized on 03/22/20 11:35 - END OF NOTE - Interpretation Interpretation: The patient was noted to be 94% on room air. However, after ambulating 3 minutes, the patient desaturated to 87% and had to be placed on 1 L pulse dose. The patient required a total of 3 L pulse dose to maintain adequate saturations throughout the testing. In total, the patient traveled 1018 feet over the course of 6 minutes with no assistive devices or breaks. These findings are consistent with a respiratory limitation exercise tolerance. - Recommendations Recommendations: Patient requires no supplemental oxygen at rest, but should be using 3 L pulse dose with any exertion.
== END ==
PROVIDERS: PCP Internal Medicine; Referring Provider Internal Medicine Critical Care Medicine; Visit Provider Internal Medicine Critical Care Medicine
DX: J96.11 Chronic respiratory failure with hypoxia (principal)
CPT/HCPCS: 94618

== ENCOUNTER → 2020-04-18 08:46 | Outpatient (CLI) | payer MEDICARE, OTHER, SELFPAY ==
[2020-03-02 08:32] VITALS: BMI 24.7
[2020-04-12 12:06] VITALS: BMI 24.5
--- NOTE | 2020-04-18 08:47 | ART_ITS ---
Reason For Study: PVD Procedure A bilateral lower extremity continuous wave Doppler with analog waveform analysis,segmental pressures,and ankle brachial indexes without exercise. Left Segmental Pressures Left brachial= 185mmHg. Left thigh = 154mmHg. Left calf = 108mmHg. Left posterior tibial artery = 124mmHg. Left dorsalis pedis artery = 148mmHg. Left digit = 51 mmHg. The left dorsalis pedis waveforms are monophasic. The left posterior tibial artery waveforms are monophasic. Right Segmental Pressures Right brachial= 185mmHg. Right thigh = 141mmHg. Right calf = 169mmHg. Right posterior tibial artery = 83mmHg. Right dorsalis pedis artery = 79mmHg. Right digit = 28 mmHg. The right dorsalis pedis waveforms are monophasic. The right posterior tibial artery waveforms are monophasic. Indices The right ankle brachial index by the dorsalis pedis is 0.43. The right ankle brachial index by the posterior tibial artery is 0.45. The right digital-brachial index is 0.15. The left ankle brachial index by the dorsalis pedis is 0.80. The left ankle brachial index by the posterior tibial artery is 0.67. The left digital-brachial index is 0.28. Interpretation Summary Severe right lower extremity arterial occlusive disease at rest. Findings would be consistent with multi segmental disease. Moderately severe left lower extremity arterial occlusive disease at rest Monophasic bilateral dorsalis pedis and posterior tibial Doppler waveforms Abnormal bilateral digital brachial indices Ordering Physician: Freny Chu Referring Physician: Virginie Lockhart Performed By: Karena Alas RVT
--- NOTE | 2020-04-18 08:47 | CDU_ITS ---
Reason For Study: Carotid stenosis Rt. Velocities/BP Lt. Velocities/BP Prox CCA 101/11.5 cm/sec. Prox CCA 55.2/11.6 cm/sec. Mid CCA 69.5/12.4 cm/sec. Mid CCA 102.3/23.7 cm/sec. Dist CCA 48.7/12.4 cm/sec. Dist CCA 112/22.5 cm/sec. Prox ICA 62.7/22.5 cm/sec. Prox ICA 134.5/44.5 cm/sec. Mid ICA 133.9/27.9 cm/sec. Mid ICA 128.4/42.6 cm/sec. Dist ICA 119.3/24.3 cm/sec. Dist ICA 148.5/33.4 cm/sec. Rt. ICA/CCA = 1.9. Lt. ICA/CCA = 1.5. Prox ECA 367.8 cm/sec. Prox ECA 270.5/14.8 cm/sec. Rt. Vert. 38.6/9 cm/sec. Lt. Vert. 80.2/20 cm/sec. Right Extracranial There is homogeneous, smooth atherosclerotic plaque noted in the right common carotid artery. There is heterogeneous, irregular atherosclerotic plaque noted in the right internal carotid artery. There is heterogeneous, irregular atherosclerotic plaque noted in the right external carotid artery. Antegrade flow is noted in the right vertebral artery. Left Extracranial There is homogeneous, smooth atherosclerotic plaque noted in the left common carotid artery. Stent noted at mid CCA through mid ICA. There is homogeneous, smooth atherosclerotic plaque noted in the left internal carotid artery. There is heterogeneous, irregular atherosclerotic plaque noted in the left external carotid artery. Antegrade flow is noted in the left vertebral artery. Procedure Carotid Duplex 20261. This is a Carotid Duplex examination using B-mode, color flow and specral Doppler. Exam performed in department. Interpretation Summary Postoperative changes of the right carotid bulb and proximal internal carotid artery with irregular plaque within the right internal carotid artery. 50 to 69% stenosis right mid internal carotid artery Greater than 50% stenosis right external carotid artery Left carotid bulb and internal carotid artery stent noted. This may make velocity evaluations incorrect. Greater than 70% stenosis left internal carotid artery. Greater than 50% stenosis left external carotid artery Patent and antegrade vertebrals bilaterally Findings appear similar to September 26, 2018 Ordering Physician: Ferny Chu Referring Physician: Virginie Lockhart Performed By: Karena Alas RVT
== END ==
PROVIDERS: PCP Internal Medicine; Referring Provider Surgery; Visit Provider Surgery
DX: I65.23 Occlusion and stenosis of bilateral carotid arteries (principal); I73.9 Peripheral vascular disease, unspecified
CPT/HCPCS: 93880; 93923

== ENCOUNTER → 2020-06-01 09:22 | Outpatient (CLI) | payer MEDICARE, OTHER, SELFPAY ==
[2020-04-29 13:02] VITALS: BMI 24.5
[2020-06-01 12:12] LABS: Absolute Lymphocyte Count 1.03 X10^3/uL (0.83-4.51); Absolute Neutrophil Count 8.8 X10^3/uL (2.0-7.7); Basophil# 0.06 X10^3/uL; Basophil% 0.5 % (0-1); Eosinophil# 0.23 X10^3/uL; Hematocrit 35.1 % (40-54); Lymphocyte # 1.03 X10^3/ul (4.0); Lymphocyte % 9.2 % (19-41); Mean Corp Hgb Conc 31.3 g/dL (32-36); Mean Corpuscular Hgb 27.7 pg (27.0-32.0); Mean Corpuscular Volume 88.4 fL (80-94); Mean Platelet Vol. 10.6 fl (6.2-12.0); Monocyte# 1.06 X10^3/uL; Monocyte% 9.4 % (0-10); NRBC Flagged by Analyzer 0 % (0-5); Neutrophil # 8.82 X10^3/uL (2.7-7.7); Neutrophil % 78.5 % (47-70); Platelet Count 172 K/mm3 (150-450); RBC Distribution Width CV 16.7 % (11.6-14.6); RBC Distribution Width SD 54.1 fl (35.1-43.9); Red Blood Count 3.97 M/mm3 (4.6-6.2); White Blood Count 11.3 K/mm3 (4.4-11.0)
[2020-06-01 12:29] LABS: Cholesterol 141 mg/dL (200); High Density Lipoprotein 51 mg/dL; Triglycerides 71 mg/dL; Very Low Density Lipoprotein 14 mg/dL (5-40)
== END ==
PROVIDERS: PCP Internal Medicine; Visit Provider Internal Medicine
DX: I10 Essential (primary) hypertension (principal)
CPT/HCPCS: 36415; 80061; 85025

== ENCOUNTER → 2020-09-28 09:27 | Outpatient (CLI) | payer MEDICARE, OTHER, SELFPAY ==
[2020-09-28 08:53] VITALS: BMI 23.6
[2020-09-28 12:09] LABS: Hematocrit 36.8 % (40-54); Hemoglobin 11.5 g/dL (13.0-16.5); Mean Corp Hgb Conc 31.3 g/dL (32-36); Mean Corpuscular Hgb 26.7 pg (27.0-32.0); Mean Corpuscular Volume 85.6 fL (80-94); Mean Platelet Vol. 10.8 fl (6.2-12.0); Platelet Count 248 K/mm3 (150-450); RBC Distribution Width CV 16.8 % (11.6-14.6); RBC Distribution Width SD 52.8 fl (35.1-43.9); White Blood Count 11.4 K/mm3 (4.4-11.0)
[2020-09-28 12:26] LABS: Protein, Urine (Random) 17.6 mg/dL (<11.9); Protein:Creat Ratio 967 mg/g CRE (0-200)
[2020-09-28 12:35] LABS: Anion Gap 8 (5-15); BUN 67 mg/dL (7-18); BUN/Creat Ratio 35.1 RATIO (10-20); Calcium,Total 9.2 mg/dL (8.5-10.1); Chloride 105 mmol/L (98-107); Creatinine, Serum 1.91 mg/dL (0.70-1.30); EST Glomerular Filtration Rate 37 mL/min (>60); Est Glom Filt Rate - Afr Amer 44 mL/min (>60); Glucose 109 mg/dL (74-106); Potassium 4.3 mmol/L (3.5-5.1); Sodium Level 138 mmol/L (136-145)
[2020-09-28 12:40] LABS: Uric Acid 10.7 mg/dL (3.5-7.2)
== END ==
PROVIDERS: PCP Internal Medicine; Referring Provider Internal Medicine Nephrology; Visit Provider Internal Medicine Nephrology
DX: M10.9 Gout, unspecified (principal); N18.32 Chronic kidney disease, stage 3b; D63.1 Anemia in chronic kidney disease
CPT/HCPCS: 36415; 80048; 82570; 84156; 84550; 85027

== ENCOUNTER → 2020-10-13 10:24 | Outpatient (CLI) | payer MEDICARE, OTHER, SELFPAY ==
[2020-09-28 08:53] VITALS: BMI 23.6
[2020-10-06 11:25] VITALS: BMI 23.6
--- NOTE | 2020-10-13 10:26 | ART_ITS ---
Reason For Study: PAD. Rest pain Procedure A bilateral lower extremity continuous wave Doppler with analog waveform analysis and ankle brachial indexes. Left Segmental Pressures Left brachial= 171mmHg. Left posterior tibial artery = 86mmHg. Left dorsalis pedis artery = 112mmHg. Left digit = 37 mmHg. The left dorsalis pedis waveforms are monophasic. The left posterior tibial artery waveforms are monophasic. Right Segmental Pressures Right brachial= 172mmHg. Right posterior tibial artery = 62mmHg. Right dorsalis pedis artery = 61mmHg. Right digit = 28 mmHg. The right dorsalis pedis waveforms are monophasic. The right posterior tibial artery waveforms are monophasic. Indices The right ankle brachial index by the dorsalis pedis is 0.35. The right ankle brachial index by the posterior tibial artery is 0.36. The right digital-brachial index is 0.16. The left ankle brachial index by the dorsalis pedis is 0.65. The left ankle brachial index by the posterior tibial artery is 0.50. The left digital-brachial index is 0.22. VL/Ankle Brachial Index Interpretation Summary Abnormal right lower ankle brachial indices and monophasic doppler waveforms co nsistent with severe arterial occlusive disease Abnormal left lower extremity ankle brachial indices and monophasic doppler wav eforms consistent with moderately severe to severe arterial occlusive disease Progression from 04/18/20. Ordering Physician: Virginie Lockhart Referring Physician: Virginie Lockhart Performed By: Karena Alas RVT
== END ==
PROVIDERS: PCP Internal Medicine; Referring Provider Internal Medicine; Visit Provider Internal Medicine
DX: I73.9 Peripheral vascular disease, unspecified (principal)
CPT/HCPCS: 93922

== ENCOUNTER → 2020-10-31 09:18 | Outpatient (CLI) | payer MEDICARE, OTHER, SELFPAY | PROVIDERS: PCP Internal Medicine; Visit Provider Internal Medicine | DX: M10.9 Gout, unspecified (principal) | CPT/HCPCS: 36415; 84550 ==

== ENCOUNTER → 2020-12-28 09:31 | Outpatient (CLI) | payer MEDICARE, OTHER, SELFPAY ==
[2020-12-28 12:33] LABS: AST(SGOT) 17 U/L (15-37); Alanine Aminotransfer ALT/SGPT 23 U/L (16-61); Albumin, Serum 3.2 g/dL (3.2-5.0); Alkaline Phosphatase 114 U/L (45-117); Bilirubin, Direct 0.11 mg/dL (0.00-0.30); Cholesterol 145 mg/dL (200); Globulin 4.6 g/dL (2.2-4.2); High Density Lipoprotein 48 mg/dL; Protein, Total 7.8 g/dL (6.4-8.2); Triglycerides 84 mg/dL; Very Low Density Lipoprotein 17 mg/dL (5-40)
[2020-12-28 13:46] LABS: Anion Gap 6 (5-15); BUN 51 mg/dL (7-18); Chloride 107 mmol/L (98-107); Creatinine, Serum 1.89 mg/dL (0.70-1.30); EST Glomerular Filtration Rate 37 mL/min (>60); Est Glom Filt Rate - Afr Amer 45 mL/min (>60); Glucose 108 mg/dL (74-106); Potassium 4.3 mmol/L (3.5-5.1); Sodium Level 141 mmol/L (136-145); Uric Acid 5.3 mg/dL (3.5-7.2)
== END ==
PROVIDERS: PCP Internal Medicine; Referring Provider Nurse Practitioner Family; Visit Provider Nurse Practitioner Family
DX: E78.5 Hyperlipidemia, unspecified (principal); I11.0 Hypertensive heart disease with heart failure; I50.32 Chronic diastolic (congestive) heart failure; M10.9 Gout, unspecified
CPT/HCPCS: 36415; 80048; 80061; 80076; 84550

== ENCOUNTER 2021-04-10 10:22 | Outpatient (CLI) | payer MEDICARE, OTHER, SELFPAY ==
[2021-04-10 12:12] LABS: Hematocrit 36.4 % (40-54); Hemoglobin 11.7 g/dL (13.0-16.5); Mean Corp Hgb Conc 32.1 g/dL (32-36); Mean Corpuscular Hgb 29.3 pg (27.0-32.0); Mean Platelet Vol. 10.8 fl (6.2-12.0); Platelet Count 247 K/mm3 (150-450); RBC Distribution Width CV 16.1 % (11.6-14.6); White Blood Count 13.1 K/mm3 (4.4-11.0)
[2021-04-10 12:32] LABS: Albumin, Serum 3.2 g/dL (3.2-5.0); BUN 56 mg/dL (7-18); BUN/Creat Ratio 30.9 RATIO (10-20); Calcium,Total 9.1 mg/dL (8.5-10.1); Chloride 109 mmol/L (98-107); Creatinine, Serum 1.81 mg/dL (0.70-1.30); EST Glomerular Filtration Rate 39 mL/min (>60); Est Glom Filt Rate - Afr Amer 47 mL/min (>60); Glucose 115 mg/dL (74-106); Phosphorus 3.3 mg/dL (2.5-4.9); Potassium 4.3 mmol/L (3.5-5.1); Protein, Urine (Random) 16.2 mg/dL (<11.9); Protein:Creat Ratio 783 mg/g CRE (0-200); Sodium Level 141 mmol/L (136-145); Uric Acid 5.2 mg/dL (3.5-7.2); Vitamin D,25 Hydroxy 40.8 ng/mL
[2021-04-10 12:47] LABS: PTHIN 94.8 pg/mL (18.4-80.1)
== END 2021-04-10 23:59 | disposition home or self-care (01) ==
LOC: BIMLAB 10:23
PROVIDERS: PCP Internal Medicine; Referring Provider Internal Medicine Nephrology; Visit Provider Internal Medicine Nephrology
DX: N18.32 Chronic kidney disease, stage 3b (principal)
CPT/HCPCS: 36415; 80069; 82306; 82570; 83970; 84156; 84550; 85027

== ENCOUNTER 2021-06-01 09:33 | Outpatient (CLI) | payer MEDICARE, OTHER, SELFPAY ==
--- NOTE | 2021-06-01 09:34 | CDU_ITS ---
Reason For Study: carotid stenosis Rt. Velocities/BP Lt. Velocities/BP Prox CCA 133.4/12.1 cm/sec. Prox CCA 68.6/18.3 cm/sec. Mid CCA 79.9/14.7 cm/sec. Mid CCA 125.3/28.5 cm/sec. Dist CCA 82.6/14.7 cm/sec. Dist CCA 121.6/26.7 cm/sec. Prox ICA 75.7/20.4 cm/sec. Prox ICA 107.1/30.4 cm/sec. Mid ICA 139.7/36.5 cm/sec. Mid ICA 140.0/46.8 cm/sec. Dist ICA 174.8/40.9 cm/sec. Dist ICA 170.4/36.5 cm/sec. Rt. ICA/CCA = 2.2. Lt. ICA/CCA = 1.4. Prox ECA 517.3/74.5 cm/sec. Prox ECA 468.2/43.2 cm/sec. Rt. Vert. 44.1/19.5 cm/sec. Lt. Vert. 100.3/16.8 cm/sec. Right Extracranial There is homogeneous, smooth atherosclerotic plaque noted in the right common carotid artery. There is heterogeneous, irregular atherosclerotic plaque noted in the right internal carotid artery. There is homogeneous, smooth atherosclerotic plaque noted in the right external carotid artery. Antegrade flow is noted in the right vertebral artery. Left Extracranial There is heterogeneous, irregular atherosclerotic plaque noted in the left common carotid artery. There is heterogeneous, irregular atherosclerotic plaque noted in the left internal carotid artery. Stent noted at mid CCA through mid ICA. There is heterogeneous, irregular atherosclerotic plaque noted in the left external carotid artery. Antegrade flow is noted in the left vertebral artery. Procedure Carotid Duplex 48009. This is a Carotid Duplex examination using B-mode, color flow and specral Doppler. The exam was diagnostic. Exam performed in department. VL/Carotid Duplex Ultrasound Interpretation Summary Postoperative changes of the right carotid bulb and proximal internal carotid a rtery with irregular plaque within the right internal carotid artery. 50 to 69% stenosis right mid internal carotid artery Greater than 50% stenosis right external carotid artery Left carotid bulb and internal carotid artery stent noted. This may make veloci ty evaluations incorrect. 50-69% stenosis left internal carotid artery. Greater than 50% stenosis left external carotid artery Patent and antegrade vertebrals bilaterally No change from 04/18/2020 Ordering Physician: Ferny Chu Performed By: Kevin Fabian RVT
== END 2021-06-01 23:59 | disposition home or self-care (01) ==
LOC: CVS 09:33
PROVIDERS: PCP Internal Medicine; Referring Provider Surgery; Visit Provider Surgery
DX: I65.23 Occlusion and stenosis of bilateral carotid arteries (principal)
CPT/HCPCS: 93880

== ENCOUNTER → 2021-10-02 | Outpatient (CLI) | payer MEDICARE, OTHER, SELFPAY ==
--- NOTE | 2021-10-02 08:53 | RDU_ITS ---
Reason For Study: renal artery stenosis Right Renal Artery Left Renal Artery Right renal artery ostium Left renal artery ostium 204.8/20.4 169.5/32.2 RSV/EDV. PSV/EDV. Right renal artery proximal Left renal artery proximal PSV/EDV 181.3/32.2 PSV/EDV. 248.0/20.4 . Right renal artery mid 126.4/20.4 Left renal artery mid 217.3/23.3 PSV/EDV. PSV/EDV . Right renal artery distal Left renal artery distal 172.1/23.3 153.8/16.5 PSV/EDV. PSV/EDV. Right Renal Parenchyma Left Renal Parenchyma Upper Pole Medula 18.9/6.8 PSV/EDV. Left upper pole medulla 35.3/6.8 Right upper pole medulla EDR .36 . PSV/EDV . Right upper pole medulla R.I. .64 . Left upper pole medulla EDR .19 . Upper Igor Cortx 44.1/6.8 PSV/EDV. Left upper pole medulla R.I. .81 . Right upper pole cortex EDR .15 . UP Cortex 22.1/6.6 PSV/EDV. Right upper pole cortex R.I. .85 . Left upper pole cortex EDR .3 . Right lower Pole medulla 48.5/5.7 Left upper pole cortex R.I. .7 . PSV/EDV . Left lower Pole medulla 41.3/5.7 Right lower pole medulla EDR .12 . PSV/EDV . Right lower pole medulla R.I. .88 . Left lower pole medulla EDR .14 . Lower Pole Cortex 18.2/4.5 PSV/EDV. Left lower pole medulla R.I. .86 . Right lower pole cortex EDR .25 . Lower Pole Cortx 18.5/7.5 PSV/EDV. Right lower pole cortex R.I. .75 . Left lower pole cortex EDR .41 . Right Renal Hilar Left lower pole cortex R.I. .59 . Right Hilar avg 53.4/8.0 PSV/EDV. Left Renal Hilar Right hilar acceleration time 40 LT Hilar avg 52.2/7.5 PSV/EDV . m/sec. Left hilar acceleration time 50 Right Renal Dimensions m/sec. Right kidney size 10.3 cm . Left Renal Dimensions Right cortical dimension 1.33 cm . Left kidney size 10.7 cm . Left cortical dimension 1.13 cm . Aorta Proximal abdominal aorta 1.09 x 1.09 cm . Proximal abdominal aorta peak systolic velocity is 173.4 cm/sec . Distal abdominal aorta .96 x 1.11 cm . Distal abdominal aorta peak systolic velocity is 165.6 cm/sec . Normal renal veins bilat. Procedures Technically difficult study. VL/Renal Artery Duplex Ultrasound Interpretation Summary Maximal aortic diameter proximally at 1.09 x 1.09 cm which is normal. Aortic velocity is elevated which invalidates renal artery to aortic ratio Technically difficult examination Maximal right renal artery velocity 181.3 cm/s without elevated diastolic veloc ity likely consistent with less than 60% stenosis. This would correlate with a maintained a right jabier al length of 10.3 cm Maximal velocity within the left renal artery proximally is elevated at 248 cm/ s flow consistent with greater than 60% stenosis. Left renal length is maintained at 10.7 cm Ordering Physician: Ferny Chu Performed By: Kevin Fabian RVT
== END | disposition home or self-care (01) ==
LOC: CVS 08:52
PROVIDERS: PCP Internal Medicine; Referring Provider Surgery; Visit Provider Surgery
DX: I10 Essential (primary) hypertension (principal); I70.1 Atherosclerosis of renal artery
CPT/HCPCS: 93975

== ENCOUNTER → 2021-10-30 | Outpatient (CLI) | payer MEDICARE, OTHER, SELFPAY ==
[2021-10-30 12:38] LABS: Absolute Lymphocyte Count 1.33 X10^3/uL (0.83-4.51); Absolute Neutrophil Count 6.1 X10^3/uL (2.0-7.7); Basophil# 0.08 X10^3/uL; Basophil% 0.9 % (0-1); Eosinophil# 0.39 X10^3/uL; Eosinophils% 4.5 % (0-5); Hematocrit 35.4 % (40-54); Hemoglobin 11.6 g/dL (13.0-16.5); Lymphocyte # 1.33 X10^3/ul (0.83-4.51); Lymphocyte % 15.3 % (19-41); Mean Corp Hgb Conc 32.8 g/dL (32-36); Mean Corpuscular Hgb 30.1 pg (27.0-32.0); Mean Corpuscular Volume 91.7 fL (80-94); Mean Platelet Vol. 10.2 fl (6.2-12.0); Monocyte# 0.83 X10^3/uL; Monocyte% 9.5 % (0-10); NRBC Flagged by Analyzer 0 % (0-5); Neutrophil # 6.05 X10^3/uL (2.7-7.7); Neutrophil % 69.3 % (47-70); Platelet Count 239 K/mm3 (150-450); RBC Distribution Width CV 16.3 % (11.6-14.6); RBC Distribution Width SD 54.9 fl (35.1-43.9); Red Blood Count 3.86 M/mm3 (4.6-6.2); White Blood Count 8.7 K/mm3 (4.4-11.0)
[2021-10-30 12:43] LABS: Vitamin D,25 Hydroxy 29.8 ng/mL
[2021-10-30 12:46] LABS: BUN 40 mg/dL (7-18); BUN/Creat Ratio 21.4 RATIO (10-20); Chloride 109 mmol/L (98-107); Creatinine, Serum 1.87 mg/dL (0.70-1.30); EST Glomerular Filtration Rate 38 mL/min (>60); Est Glom Filt Rate - Afr Amer 45 mL/min (>60); Glucose 95 mg/dL (74-106); Phosphorus 3.5 mg/dL (2.5-4.9); Potassium 4.4 mmol/L (3.5-5.1); Sodium Level 139 mmol/L (136-145)
[2021-10-30 12:51] LABS: Protein, Urine (Random) 100.3 mg/dL (<11.9); Protein:Creat Ratio 2802 mg/g CRE (0-200)
[2021-10-30 12:54] LABS: PTHIN 96.7 pg/mL (18.4-80.1)
== END | disposition home or self-care (01) ==
LOC: BIMLAB 09:12
PROVIDERS: PCP Internal Medicine; Referring Provider Internal Medicine Nephrology; Visit Provider Internal Medicine Nephrology
DX: N18.32 Chronic kidney disease, stage 3b (principal); D63.1 Anemia in chronic kidney disease
CPT/HCPCS: 36415; 80069; 82306; 82570; 83970; 84156; 85025

== ENCOUNTER → 2021-11-30 | Outpatient (CLI) | payer MEDICARE, OTHER, SELFPAY ==
[2021-11-30 12:37] LABS: Anion Gap 6 (5-15); BUN 47 mg/dL (7-18); BUN/Creat Ratio 23.2 RATIO (10-20); Chloride 110 mmol/L (98-107); Creatinine, Serum 2.03 mg/dL (0.70-1.30); EST Glomerular Filtration Rate 34 mL/min (>60); Est Glom Filt Rate - Afr Amer 41 mL/min (>60); Glucose 107 mg/dL (74-106); Potassium 5.1 mmol/L (3.5-5.1); Sodium Level 141 mmol/L (136-145)
[2021-11-30 12:46] LABS: Protein, Urine (Random) 41.6 mg/dL (<11.9); Protein:Creat Ratio 1396 mg/g CRE (0-200)
== END | disposition home or self-care (01) ==
LOC: BIMLAB 09:54
PROVIDERS: PCP Internal Medicine; Referring Provider Internal Medicine Nephrology; Visit Provider Internal Medicine Nephrology
DX: N18.32 Chronic kidney disease, stage 3b (principal)
CPT/HCPCS: 36415; 80048; 82570; 84156

== ENCOUNTER → 2022-01-31 | Outpatient (CLI) | payer MEDICARE, OTHER, SELFPAY ==
[2022-01-31 12:44] LABS: Anion Gap 8 (5-15); BUN 59 mg/dL (7-18); BUN/Creat Ratio 29.8 RATIO (10-20); Calcium,Total 8.8 mg/dL (8.5-10.1); Chloride 114 mmol/L (98-107); Creatinine, Serum 1.98 mg/dL (0.70-1.30); EST Glomerular Filtration Rate 35 mL/min (>60); Est Glom Filt Rate - Afr Amer 42 mL/min (>60); Glucose 111 mg/dL (74-106); Potassium 4.9 mmol/L (3.5-5.1); Sodium Level 142 mmol/L (136-145)
[2022-01-31 12:45] LABS: Protein, Urine (Random) 25.6 mg/dL (<11.9); Protein:Creat Ratio 988 mg/g CRE (0-200)
== END | disposition home or self-care (01) ==
PROVIDERS: PCP Internal Medicine; Referring Provider Internal Medicine Nephrology; Visit Provider Internal Medicine Nephrology
DX: N18.32 Chronic kidney disease, stage 3b (principal)
CPT/HCPCS: 36415; 80048; 82570; 84156

== ENCOUNTER → 2022-04-25 | Outpatient (CLI) | payer MEDICARE, OTHER, SELFPAY ==
--- NOTE | 2022-04-25 15:16 | RAD_ITS ---
INDICATION: Chronic Cough EXAMINATION/TECHNIQUE: X-RAY - XR Chest 2 Views COMPARISON: 08/31/2019. FINDINGS: LINES/DEVICES: None. LUNGS: Chronic blunting of the left costophrenic angle consistent with prior surgery. Moderate interstitial fibrosis without significant change from the prior study. MEDIASTINUM AND CARDIOVASCULAR STRUCTURES: Cardiac silhouette not enlarged. Prior sternotomy and CABG. Central airways and mediastinal contour are unremarkable. BONES AND SOFT TISSUES: Unremarkable. RAD/Chest PA and Lateral IMPRESSION: No acute cardiopulmonary disease. Chronic interstitial fibrosis. Electronically Signed: Monica Gonzalez MD at 23:53 EST Reading Location ID and State: [id number] / Tel , Service support ,
[2022-04-25 17:11] LABS: Absolute Lymphocyte Count 1.24 X10^3/uL (0.83-4.51); Absolute Neutrophil Count 5.5 X10^3/uL (2.0-7.7); Basophil# 0.07 X10^3/uL; Basophil% 0.9 % (0-1); Eosinophil# 0.29 X10^3/uL; Eosinophils% 3.5 % (0-5); Hematocrit 33.6 % (40-54); Hemoglobin 10.7 g/dL (13.0-16.5); Lymphocyte # 1.24 X10^3/ul (0.83-4.51); Lymphocyte % 15.1 % (19-41); Mean Corp Hgb Conc 31.8 g/dL (32-36); Mean Corpuscular Hgb 30.8 pg (27.0-32.0); Mean Corpuscular Volume 96.8 fL (80-94); Mean Platelet Vol. 10.8 fl (6.2-12.0); Monocyte# 1.02 X10^3/uL; Monocyte% 12.4 % (0-10); NRBC Flagged by Analyzer 0 % (0-5); Neutrophil # 5.53 X10^3/uL (2.7-7.7); Neutrophil % 67.4 % (47-70); Platelet Count 177 K/mm3 (150-450); RBC Distribution Width CV 14.2 % (11.6-14.6); RBC Distribution Width SD 50.1 fl (35.1-43.9); Red Blood Count 3.47 M/mm3 (4.6-6.2); White Blood Count 8.2 K/mm3 (4.4-11.0)
[2022-04-25 17:30] LABS: BNP,B-Type NATRIURETIC PEPTIDE 1105.4 pg/mL (0-100)
[2022-04-25 17:41] LABS: ALB/GLOB Ratio 0.9 RATIO (0.9-2.4); AST(SGOT) 23 U/L (15-37); Alanine Aminotransfer ALT/SGPT 22 U/L (16-61); Albumin, Serum 3.6 g/dL (3.2-5.0); Alkaline Phosphatase 94 U/L (45-117); Anion Gap 9 (5-15); BUN 57 mg/dL (7-18); BUN/Creat Ratio 24.5 RATIO (10-20); Calcium,Total 9.1 mg/dL (8.5-10.1); Chloride 115 mmol/L (98-107); Creatinine, Serum 2.33 mg/dL (0.70-1.30); EST Glomerular Filtration Rate 29 mL/min (>60); Est Glom Filt Rate - Afr Amer 35 mL/min (>60); Globulin 3.8 g/dL (2.2-4.2); Glucose 105 mg/dL (74-106); Potassium 4.7 mmol/L (3.5-5.1); Protein, Total 7.4 g/dL (6.4-8.2); Sodium Level 145 mmol/L (136-145)
== END | disposition home or self-care (01) ==
PROVIDERS: PCP Internal Medicine; Referring Provider Internal Medicine; Visit Provider Internal Medicine
DX: I11.0 Hypertensive heart disease with heart failure (principal); I50.32 Chronic diastolic (congestive) heart failure; R05.3 Chronic cough
CPT/HCPCS: 36415; 71046; 80053; 83880; 85025

== ENCOUNTER → 2022-05-02 | Outpatient (CLI) | payer MEDICARE, OTHER, SELFPAY ==
--- NOTE | 2022-05-02 10:13 | ECHOD_ITS ---
Reason For Study: CHF Procedure This was a 2D Doppler, Color Flow transthoracic echocardiogram. Exam performed in department. Left Ventricle Normal LV size. Moderate concentric left ventricular hypertrophy. Left ventricular systolic function is normal. The estimated ejection fraction is 60 %. No regional wall motion abnormalities noted. Right Ventricle Normal RV size. Normal systolic function. Atria The left atrium is moderately enlarged. The right atrium is mildly enlarged. Mitral Valve There is mild to moderate mitral annular calcification. Mild-Moderate (1-2+) eccentric mitral valve insufficiency. Tricuspid Valve Normal tricuspid valve. Mild tricuspid valve insufficiency. Pulmonary artery systolic pressure is 50 mmHg. Aortic Valve Trisinus/trileaflet aortic valve. Moderate focal aortic valve calcification. Trivial aortic valve insufficiency. Pulmonic Valve Normal pulmonic valve. Great Vessels Normal aortic root. The pulmonary artery is normal size. Normal inferior vena cava. Pericardium/Pleural No pericardial effusion. MMode/2D Measurements & Calculations LVIDd: 5.0 cm IVSd: 1.6 cm LA dimension: 5.2 cm LVIDs: 3.1 cm LVPWd: 1.4 cm RVDd: 3.5 cm FS: 37.7 % LAV(MOD-bp): 107.0 ml LA A4 area: 30.4 cm2 RA A4 area: 20.6 cm2 LAV(MOD-bp) Indexed: 57.3 ml/m2 LAV(MOD-sp2): 96.8 ml LAV(MOD-sp4): 117.0 ml Time Measurements MV dec time: 0.14 sec Doppler Measurements & Calculations MV E max fei: 96.5 cm/sec Lat Peak E' Fei: 7.3 cm/sec Med Peak E' Fei: 7.3 cm/sec MV A max fei: 78.1 cm/sec E/E' lat: 13.3 E/E' med: 13.2 MV E/A: 1.2 MV V2 max: 124.0 cm/sec MV dec slope: 677.5 cm/sec2 Ao V2 max: 168.1 cm/sec MV max P.1 mmHg Ao max P.3 mmHg MV V2 mean: 62.7 cm/sec Ao V2 mean: 122.1 cm/sec MV mean P.9 mmHg Ao mean P.7 mmHg MV V2 VTI: 33.7 cm Ao V2 VTI: 54.3 cm AV (velocity ratio): 0.59 AI max fei: 322.7 cm/sec LV V1 max: 116.6 cm/sec MR max fei: 622.9 cm/sec AI max P.6 mmHg LV V1 max P.5 mmHg MR max P.2 mmHg LV V1 mean P.9 mmHg MR mean fei: 456.2 cm/sec AI dec slope: 173.6 cm/sec2 LV V1 mean: 81.5 cm/sec MR mean P.4 mmHg AI P1/2t: 544.3 msec LV V1 VTI: 32.1 cm MR VTI: 253.4 cm PA V2 max: 119.4 cm/sec PI end-d fei: 166.0 cm/sec TR max fei: 338.1 cm/sec TR max P.7 mmHg ECHO/Echo Complete Interpretation Summary Normal LV size. Left ventricular systolic function is normal. The estimated ejection fraction is 60 %. Mild-Moderate (1-2+) eccentric mitral valve insufficiency. Mild tricuspid valve insufficiency. Trivial aortic valve insufficiency. Moderate concentric left ventricular hypertrophy. Moderate focal aortic valve calcification. Ordering Physician: Virginie Lockhart Referring Physician: Virginie Lockhart Performed By: Nitesh Tracey RCS
== END | disposition home or self-care (01) ==
LOC: CVS 08:37
PROVIDERS: PCP Internal Medicine; Referring Provider Internal Medicine; Visit Provider Internal Medicine
DX: I50.32 Chronic diastolic (congestive) heart failure (principal)
CPT/HCPCS: 93306

== ENCOUNTER → 2022-05-08 | Outpatient (CLI) | payer MEDICARE, OTHER, SELFPAY ==
--- NOTE | 2022-05-09 10:21 | PFT ---
INTRODUCTION: The patient is a 76-year-old male that presents for pulmonary function studies secondary to a diagnosis of cough. Respiratory therapy reported good patient effort. Bronchodilators were used during testing. INTERPRETATION: Forced expiration spirometry demonstrates no evidence of a large airways obstructive ventilatory defect. There was no significant response to aerosolized bronchodilators. Spirograms are of good quality and plateau normally. Body plethysmography was performed and revealed lung volumes to be within normal limits. Diffusing capacity by single breath CO was reduced to 47% of predicted. IMPRESSION: Isolated reduction in diffusing capacity, which could be related to an underlying pulmonary vascular disorder, such as pulmonary hypertension. Clinical correlation is recommended.
== END | disposition home or self-care (01) ==
LOC: PSN 09:25
PROVIDERS: PCP Internal Medicine; Referring Provider Internal Medicine; Visit Provider Internal Medicine
DX: R05.3 Chronic cough (principal); J84.9 Interstitial pulmonary disease, unspecified
CPT/HCPCS: 94060; 94726; 94729

== ENCOUNTER → 2022-05-12 | Outpatient (CLI) | payer MEDICARE, OTHER, SELFPAY ==
--- NOTE | 2022-05-12 07:51 | CT_ITS ---
INDICATION: Smoker. Cough for one month. Normal chest film. EXAMINATION: CT CHEST WITHOUT CONTRAST - CT Chest W/O Contrast Injection TECHNIQUE: Helically acquired images were obtained of the chest. A radiation dose optimization technique was used for this scan. IV Contrast dosage and agent: None. COMPARISON: Chest, April 25, 2022. CTA of the chest, April 07, 2019. FINDINGS: LUNGS, PLEURA AND LARGE AIRWAYS: The lungs are mildly hyperexpanded. There is subpleural septal thickening and honeycombing without consolidation or mass. Bilateral apical pleural scarring. No pneumothorax. THYROID: No thyroid lesions. HEART AND PERICARDIUM: The heart is normal size. There is evidence of CABG procedure. Normal pericardium. VESSELS: Atherosclerotic changes of the thoracic aorta without aneurysm. MEDIASTINUM AND ROSSY: Stable mediastinal lymphadenopathy. Esophagus is unremarkable. No hiatal hernia. UPPER ABDOMEN: No acute pathology. BONES: Stable degenerative changes lumbar spine. There is evidence of median sternotomy. CT/Chest without Contrast IMPRESSION: 1. Emphysematous changes in lungs with bilateral apical pleural thickening. There is resolution of pleural effusions seen on prior CTA. 2. Status post CABG procedure. 3. Stable mediastinal lymphadenopathy. Electronically Signed: Rashad Maurice DO at 19:57 EST Reading Location ID and State: [address] [place] [address] Tel [phone], Service support ,
== END | disposition home or self-care (01) ==
LOC: CT 07:49
PROVIDERS: PCP Internal Medicine; Referring Provider Internal Medicine; Visit Provider Internal Medicine
DX: J84.9 Interstitial pulmonary disease, unspecified (principal)
CPT/HCPCS: 71250

== ENCOUNTER → 2022-06-06 | Outpatient (CLI) | payer MEDICARE, OTHER, SELFPAY ==
--- NOTE | 2022-06-06 08:46 | CDU_ITS ---
Reason For Study: BILATERAL CAROTID STENOSIS Rt. Velocities/BP Lt. Velocities/BP Prox CCA 91.6/13.0 cm/sec. Prox CCA 60.4/7.5 cm/sec. Mid CCA 68.3/9.3 cm/sec. Mid CCA 72.6/17.9 cm/sec. Dist CCA 48.6/11.8 cm/sec. Dist CCA 125.3/19.4 cm/sec. Prox ICA 71.0/18.2 cm/sec. Prox ICA 87.1/13.4 cm/sec. Mid ICA 194.5/25.5 cm/sec. Mid ICA 146.2/25.5 cm/sec. Dist ICA 156.3/25.5 cm/sec. Dist ICA 174.7/18.9 cm/sec. Rt. ICA/CCA = 194.5/68.3=2.8. Lt. ICA/CCA = 174.7/72.6=2.4. Prox ECA 366.3/0.0 cm/sec. Prox ECA 619.5/61.6 cm/sec. Rt. Vert. 115.5/5.7 cm/sec. Lt. Vert. 100.2/13.0 cm/sec. Right Extracranial There is homogeneous, smooth atherosclerotic plaque noted in the right common carotid artery. There is heterogeneous, irregular atherosclerotic plaque noted in the right internal carotid artery. The tortuous nature of the right internal carotid artery may result in flow velocities overestimating the degree of stenosis. There is homogeneous, smooth atherosclerotic plaque noted in the right external carotid artery. Antegrade flow is noted in the right vertebral artery. Left Extracranial There is heterogeneous, irregular atherosclerotic plaque noted in the left common carotid artery. There is heterogeneous, irregular atherosclerotic plaque noted in the left internal carotid artery. Patent stent is noted at mid CCA through mid ICA. There is heterogeneous, irregular atherosclerotic plaque noted in the left external carotid artery. Antegrade flow is noted in the left vertebral artery. Procedure Carotid Duplex 27824. This is a Carotid Duplex examination using B-mode, color flow and specral Doppler. The study was technically difficult. Exam performed in department. VL/Carotid Duplex Ultrasound Interpretation Summary Minimal irregular plaque at the proximal right internal carotid artery with pos t endarterectomy changes and tortuosity with velocities consistent with 50 to 69% stenosis but m ay be an overestimation due to the tortuosity Greater than 50% stenosis right external carotid artery Indwelling stent left carotid bulb/internal carotid artery with 50 to 69% steno sis. Calcific plaque with shadowing noted. Greater than 50% stenosis left external carotid artery Patent and antegrade vertebrals bilaterally No change from June 01, 2021 other than increased velocity of the right verteb ral of undetermined significance Ordering Physician: Ferny Chu Referring Physician: Virginie Lockhart Performed By: Bernadette Greenwood, RDCS, RVT
== END | disposition home or self-care (01) ==
LOC: CVS 08:45
PROVIDERS: PCP Internal Medicine; Referring Provider Surgery; Visit Provider Surgery
DX: I65.23 Occlusion and stenosis of bilateral carotid arteries (principal)
CPT/HCPCS: 93880

== ENCOUNTER → 2022-06-19 | Outpatient (CLI) | payer MEDICARE, OTHER, SELFPAY ==
[2022-06-19 15:17] LABS: Hematocrit 37.6 % (40-54); Hemoglobin 12.3 g/dL (13.0-16.5); Mean Corp Hgb Conc 32.7 g/dL (32-36); Mean Corpuscular Hgb 30.8 pg (27.0-32.0); Mean Corpuscular Volume 94.2 fL (80-94); Mean Platelet Vol. 10.8 fl (6.2-12.0); Platelet Count 196 K/mm3 (150-450); RBC Distribution Width CV 14.8 % (11.6-14.6); RBC Distribution Width SD 51.3 fl (35.1-43.9); Red Blood Count 3.99 M/mm3 (4.6-6.2); White Blood Count 9.7 K/mm3 (4.4-11.0)
[2022-06-19 15:46] LABS: Vitamin D,25 Hydroxy 31.3 ng/mL
[2022-06-19 16:02] LABS: Albumin, Serum 3.6 g/dL (3.2-5.0); BUN 58 mg/dL (7-18); BUN/Creat Ratio 27.5 RATIO (10-20); Calcium,Total 8.8 mg/dL (8.5-10.1); Chloride 114 mmol/L (98-107); Creatinine, Serum 2.11 mg/dL (0.70-1.30); EST Glomerular Filtration Rate 33 mL/min (>60); Est Glom Filt Rate - Afr Amer 39 mL/min (>60); Glucose 104 mg/dL (74-106); Phosphorus 3.2 mg/dL (2.5-4.9); Potassium 5.1 mmol/L (3.5-5.1); Sodium Level 139 mmol/L (136-145)
[2022-06-19 17:12] LABS: Protein, Urine (Random) 63.8 mg/dL (<11.9); Protein:Creat Ratio 1246 mg/g CRE (0-200)
== END | disposition home or self-care (01) ==
LOC: BIMLAB 14:12
PROVIDERS: PCP Internal Medicine; Referring Provider Internal Medicine Nephrology; Visit Provider Internal Medicine Nephrology
DX: N18.32 Chronic kidney disease, stage 3b (principal); D63.1 Anemia in chronic kidney disease
CPT/HCPCS: 36415; 80069; 82306; 82570; 83970; 84156; 85027

== ENCOUNTER 2022-08-17 15:34 | Inpatient (IN) | payer MEDICARE, OTHER, SELFPAY ==
[2022-08-17] VITALS (32 sets, daily range): BP systolic 162–206; BP diastolic 50–99; PULSE 57–78; RESP 15–26; TEMP 36.4–36.6; O2SAT 78–99; BMI 24.4; BMI 24.3
--- NOTE | 2022-08-17 15:56 | EKG12_ITS ---
Test Reason : SOB Blood Pressure : / mmHG Vent. Rate : 060 BPM Atrial Rate : 060 BPM P-R Int : 224 ms QRS Dur : 100 ms QT Int : 468 ms P-R-T Axes : 025 046 068 degrees QTc Int : 468 ms Sinus rhythm with 1st degree A-V block Moderate voltage criteria for LVH, may be normal variant ( Sokolow-Connolly , Arnold product ) Nonspecific T wave abnormality Prolonged QT Abnormal ECG Confirmed by ANA DIAZ, DAVID ([id number]), editorial assistant FUENTES MUELLER ([id number]) on 08/20/2022 10:52:31 A M Referred By: MILTON/WILLIAM Confirmed By:ARY PEREZ MD
--- NOTE | 2022-08-17 15:57 | ED.VIS.DYS ---
HPI History of Present Illness Chief Complaint: Shortness of Breath Informant: patient and spouse/S.O. Narrative Narrative: Patient presents with dyspnea. Patient has a history of congestive heart failure. He takes Bumex. No change in meds. But he has noticed over the last 2 maybe 3 days he has had more dyspnea. He normally only wears his oxygen at night but has been wearing it during the day. He even wearing oxygen he will sometimes drop into the 80s. He has never had any chest pain. He has had a new and increased cough. He brings up a little bit of frothy material and has brought up a small amount of blood once or twice. No history of PE or DVT. He has no history of COPD at all. He has no leg pain or swelling. No travel surgery immobilization personal or family history of DVT or PE. He is on 4 L of oxygen now in bed has 97% sat and feels well. [facility] Medical History Anemia in chronic kidney disease (CKD) Arthritis Arthritis Atherosclerosis of coronary artery of [place] heart without angina pectoris Bilateral carotid artery stenosis Chronic cough Chronic diastolic (congestive) heart failure Chronic kidney disease, stage 3 CVA (cerebral vascular accident) Diarrhea Diverticulitis Elevated troponin (04/07/19) Essential (primary) hypertension Flu vaccine need Generalized anxiety disorder GERD (gastroesophageal reflux disease) Gout Hyperlipidemia Hypoxia Increased sputum production Interstitial lung disease FRANCISCO JAVIER (obstructive sleep apnea) Paroxysmal atrial flutter Peripheral vascular occlusive disease Pleural effusion due to CHF (congestive heart failure) (08/27/19) PND (post-nasal drip) Renal artery stenosis Respiratory failure with hypoxia Secondary pulmonary arterial hypertension Stage III chronic kidney disease Stenosis of left subclavian artery Transient ischemic attack Varicose veins of both lower extremities Home Medications aspirin 81 mg chewable tablet 81 mg PO DAILY Heart 08/03/19 [History Last Taken 08/24/19] multivitamin with minerals 1 tab PO DAILY supplement 08/03/19 [History Last Taken 08/24/19] ferrous sulfate 325 mg (65 mg iron) tablet (Feosol) 325 mg PO BID supplement 04/12/20 [History Last Taken Unknown] ascorbate calcium (vitamin C) 500 mg tablet 500 mg PO DAILY Check with primary doctor 09/28/20 [History Last Taken Unknown] atorvastatin 80 mg tablet 80 mg PO DAILY cholesterol lowering #90 tabs 11/30/21 [Rx Last Taken Unknown] ezetimibe 10 mg tablet 10 mg PO DAILY cholesterol #90 tabs 11/30/21 [Rx Last Taken Unknown] lisinopril 40 mg tablet 40 mg PO DAILY Check with primary doctor 08/14/22 [History Last Taken Unknown] mecobalamin (vitamin B12) 10,000 mcg solution for injection 10,000 mcg IM QMONTH Check with primary doctor 08/14/22 [History Last Taken Unknown] nitroglycerin 0.4 mg sublingual tablet 0.4 mg sublingual PRN PRN Angina #25 tabs 08/14/22 [Rx Last Taken Unknown] amlodipine 10 mg tablet 10 mg PO DAILY Check with primary doctor 08/17/22 [History Last Taken Unknown] bumetanide 1 mg tablet 1 mg PO DAILY Check with primary doctor 08/17/22 [History Last Taken Unknown] carvedilol 25 mg tablet 25 mg PO BID Check with primary doctor 08/17/22 [History Last Taken Unknown] doxazosin 4 mg tablet 4 mg PO QHS Check with primary doctor 08/17/22 [History Last Taken Unknown] hydralazine 100 mg tablet 100 mg PO TID Check with primary doctor 08/17/22 [History Last Taken Unknown] sertraline 50 mg tablet 50 mg PO DAILY Check with primary doctor 08/17/22 [History Last Taken Unknown] Allergy/AdvReac Type Severity Reaction Status Date / Time No Known Allergies Allergy Verified 08/17/22 15:38 Family History Son CAD (coronary artery disease) Brother CAD (coronary artery disease) Diabetes Brother CAD (coronary artery disease) Diabetes Other Anemia Arthritis CVA (cerebral vascular accident) Hyperlipemia Hypertension Kidney disease Skin cancer Surgical History H/O basal cell carcinoma excision (09/2018) H/O colonoscopy H/O coronary artery bypass surgery (08/14/12) History of angioplasty of peripheral vessel History of herniorrhaphy History of knee replacement History of left common carotid artery stent placement (2003) History of left heart catheterization (08/13/12) History of right-sided carotid endarterectomy (05/2016) History of stent insertion of renal artery (10/01/19) Social History Smoking Status: Former smoker Tobacco: How many years used: 15 how long ago did patient quit smokin second hand exposure: No alcohol intake: current alcohol intake frequency: holidays/special occasions only substance use type: does not use caffeine: Yes ROS ROS ED ROS Narrative A complete review of systems was performed and is negative except as documented in the history of present illness. Some specific details below. Constitutional: No recent fevers or chills. No malaise EYE: No discharge, visual complaints, or pain. ENT: No difficulty swallowing. No swelling. No pain. No reflux symptoms. CV: No palpitations or chest pain. Bypass surgery in 2012. Positive history of CHF. No anticoagulation other than aspirin. Respiratory: See history of present illness. GI: No abdominal pain. No nausea vomiting diarrhea. No blood in stool. : No frequency dysuria or hematuria. Musculoskeletal: No recent trauma. No pains. No swelling. Skin: No rash. Nondiaphoretic. Neuro: No weakness or numbness. Endocrine: No polyuria or polydipsia. EXAM Physical Exam Narrative Exam Narrative: CONSTITUTIONAL: Patient is nontoxic in appearance. The patient looks comfortable. Work of breathing looks normal at this time but he is now on oxygen with good saturations and not walking. When he came into the ER he had saturations at 78% on room air and was quite dyspneic. He was slightly dusky in color. That is much better now and his color is normal. HEENT: No notable trauma. Mucous membranes moist. No sinus tenderness. No indication of pain with swallowing. EYES: No conjunctival injection. No proptosis. NECK:No JVD. No stridor. CARDIOVASCULAR: Regular rate. Regular rhythm. No notable murmur. No JVD. RESPIRATORY: Breathing is now comfortable. No pain with a deep breath. No wheezing. He does have crackles about two th[address] way up on both sides. GASTROINTESTINAL: Not distended. Bowel sounds are normal. No tenderness. No guarding. No rebound. No palpable mass. No bruit is heard. GENITOURINARY: No tenderness over the bladder. No CVA tenderness. MUSCULOSKELETAL: Atraumatic. No peripheral edema at all. No cord. No tenderness along the deep venous system. No asymmetry. No distended veins. NEUROLOGICAL: Patient is alert and appropriate. No focal deficit noted. He is not at all sleepy or lethargic. SKIN: No noted rashes. No diaphoresis. PSYCHIATRIC: Patient is calm. Mood is appropriate. Const Vital Signs: 08/17/22 15:35 08/17/22 15:39 08/17/22 15:47 Temperature 97.8 F Temperature Source Temporal Pulse Rate 66 78 Respiratory Rate 22 H Respiratory Effort Respiratory Pattern Blood Pressure 162/99 H Blood Pressure Mean 120 Pulse Ox 78 91 Oxygen Delivery Method Room Air Nasal Cannula Room Air Oxygen Flow Rate (L/min) 3 08/17/22 15:49 08/17/22 17:38 08/17/22 15:58 Temperature Temperature Source Pulse Rate 65 76 Respiratory Rate 18 21 H Respiratory Effort Short of Breath Accessory Muscle Use Respiratory Pattern Tachypnea Normal Blood Pressure Blood Pressure Mean Pulse Ox 93 Oxygen Delivery Method Nasal Cannula Oxygen Flow Rate (L/min) 4 08/17/22 16:00 08/17/22 16:00 08/17/22 16:10 Temperature Temperature Source Pulse Rate 62 62 66 Respiratory Rate 26 H 26 H 18 Respiratory Effort Respiratory Pattern Blood Pressure 180/54 H Blood Pressure Mean 92 Pulse Ox 96 96 97 Oxygen Delivery Method Oxygen Flow Rate (L/min) 08/17/22 16:15 08/17/22 16:20 08/17/22 16:30 Temperature Temperature Source Pulse Rate 61 60 66 Respiratory Rate 20 H 19 H 15 Respiratory Effort Respiratory Pattern Blood Pressure 185/50 H 188/53 H Blood Pressure Mean 87 92 Pulse Ox 99 99 96 Oxygen Delivery Method Oxygen Flow Rate (L/min) 08/17/22 16:30 08/17/22 16:40 08/17/22 16:45 Temperature Temperature Source Pulse Rate 66 62 67 Respiratory Rate 15 25 H 23 H Respiratory Effort Respiratory Pattern Blood Pressure 181/58 H Blood Pressure Mean 94 Pulse Ox 96 97 96 Oxygen Delivery Method Oxygen Flow Rate (L/min) 08/17/22 16:50 08/17/22 17:00 08/17/22 17:00 Temperature Temperature Source Pulse Rate 60 63 63 Respiratory Rate 18 22 H 22 H Respiratory Effort Respiratory Pattern Blood Pressure 185/56 H Blood Pressure Mean 94 Pulse Ox 99 98 98 Oxygen Delivery Method Oxygen Flow Rate (L/min) 08/17/22 17:10 08/17/22 17:15 08/17/22 17:20 Temperature Temperature Source Pulse Rate 63 67 64 Respiratory Rate 16 22 H 22 H Respiratory Effort Respiratory Pattern Blood Pressure 187/55 H Blood Pressure Mean 94 Pulse Ox 97 94 99 Oxygen Delivery Method Oxygen Flow Rate (L/min) 08/17/22 17:30 08/17/22 17:30 08/17/22 17:40 Temperature Temperature Source Pulse Rate 65 65 63 Respiratory Rate 19 H 19 H 19 H Respiratory Effort Respiratory Pattern Blood Pressure 192/53 H Blood Pressure Mean 91 Pulse Ox 96 96 97 Oxygen Delivery Method Oxygen Flow Rate (L/min) 08/17/22 17:45 08/17/22 17:57 08/17/22 18:00 Temperature Temperature Source Pulse Rate 63 59 L Respiratory Rate 25 H Respiratory Effort Respiratory Pattern Blood Pressure 195/56 H 190/55 H Blood Pressure Mean 96 94 Pulse Ox 97 96 Oxygen Delivery Method Oxygen Flow Rate (L/min) 08/17/22 18:00 08/17/22 18:10 08/17/22 18:15 Temperature Temperature Source Pulse Rate 59 L 57 L 58 L Respiratory Rate 25 H 20 H 17 Respiratory Effort Respiratory Pattern Blood Pressure 191/55 H Blood Pressure Mean 95 Pulse Ox 96 97 98 Oxygen Delivery Method Oxygen Flow Rate (L/min) 08/17/22 18:20 08/17/22 19:00 08/17/22 20:00 Temperature Temperature Source Pulse Rate 59 L 65 68 Respiratory Rate 18 20 H 25 H Respiratory Effort Respiratory Pattern Blood Pressure 193/61 H 201/60 H Blood Pressure Mean 105 107 Pulse Ox 99 92 92 Oxygen Delivery Method Nasal Cannula Nasal Cannula Oxygen Flow Rate (L/min) 3 4 MDM MDM MDM Narrative Medical decision making narrative: I looked up patient's prior outpatient echo from May of this year where he had an ejection fraction of 60%. Patient CBC shows mild anemia otherwise normal. Patient's electrolytes are really at baseline including mild renal dysfunction. Troponin was slightly up that is probably combination of hypoxia and elevated creatinine/decreased GFR. He is not having chest pain or sign of acute STEMI. Patient's D-dimer was elevated up at .91 patient's lactate was normal at 1.2. Patient's BNP he was up to 32 known but has had much higher before. I do not think this patient actually has acute congestive heart failure. With his hemoptysis and elevated D-dimer I did think it was important to have a CT on this patient. We did this. I did hydrate him a bit ahead of time. Although this could worsen CHF I do not think that is his primary issue. Happily CTA did not show dissection or pulmonary embolus. There were slight effusions. I think a lot of this patient's symptoms are multifactorial. He certainly has significant fibrotic changes. He may have a component of COPD because of his long history of smoking. He does use nebulizers at home which at first he denied but after we used 1 here they said they have that at home. We will give a course of steroids. I think with his worsening hypoxia he should come in the hospital. I discussed the case with the hospitalist. Lab Data Attestation: I reviewed the patient's lab results. Labs: Laboratory Results - last 24 hr 08/17/22 08/17/22 08/17/22 15:48 15:48 15:48 WBC 9.4 RBC 3.66 L Hgb 11.2 L Hct 34.2 L MCV 93.4 MCH 30.6 MCHC 32.7 RDW Std Deviation 52.1 H RDW Coeff of Lisa 15.0 H Plt Count 183 MPV 10.5 Immature Gran % (Auto) 0.500 Neut % (Auto) 69.2 Lymph % (Auto) 15.4 L Morgan % (Auto) 10.2 H Eos % (Auto) 3.8 Baso % (Auto) 0.9 Absolute Neuts (auto) 6.5 Absolute Lymphs (auto) 1.45 Nucleated RBC % 0 D-Dimer Quant (PE/DVT) 0.91 H* Sodium 145 Potassium 4.7 Chloride 113 H Carbon Dioxide 24.0 Anion Gap 8 BUN 50 H Creatinine 2.15 H Estim Creat Clear Calc 27.84 Est GFR (MDRD) Af Amer 39 L Est GFR (MDRD) Non-Af 32 L BUN/Creatinine Ratio 23.3 H Glucose 115 H Lactic Acid Calcium 8.7 Troponin I High Sens 93 H B-Natriuretic Peptide 08/17/22 08/17/22 15:48 15:48 WBC RBC Hgb Hct MCV MCH MCHC RDW Std Deviation RDW Coeff of Lisa Plt Count MPV Immature Gran % (Auto) Neut % (Auto) Lymph % (Auto) Morgan % (Auto) Eos % (Auto) Baso % (Auto) Absolute Neuts (auto) Absolute Lymphs (auto) Nucleated RBC % D-Dimer Quant (PE/DVT) Sodium Potassium Chloride Carbon Dioxide Anion Gap BUN Creatinine Estim Creat Clear Calc Est GFR (MDRD) Af Amer Est GFR (MDRD) Non-Af BUN/Creatinine Ratio Glucose Lactic Acid 1.2 Calcium Troponin I High Sens B-Natriuretic Peptide 1309.4 H Radiography Diagnostic Testing: Clinical Impression(s) from Imaging Studies Chest X-Ray 08/17/22 16:05 IMPRESSION: Fibrotic COPD. No definite change or acute chest disease. Electronically Signed: Stephen Collado MD at 16:21 EDT , Chest CTA 08/17/22 17:25 IMPRESSION: No demonstrated pulmonary embolism or arterial dissection. Bilateral pleural effusions. Severe fibrotic chronic pulmonary disease. Electronically Signed: Stephen Collado MD at 18:14 EDT , EKG Initial EKG: Comments: My independent interpretation the patient's EKG done for dyspnea shows sinus rhythm with first-degree AV block and overall rate of 60. No ventricular ectopy. There are some diffuse nonspecific ST and T wave changes that may be related to LVH. NH interval is long. QRS duration is normal. QTc is toward the longer end of normal at 468 ms. Management Discussion w/another healthcare provider: Hospitalist Critical Care Time Critical Care Time: Yes Critical care time (excluding procedures): 30-74 minutes, Discussing w/Patient &/or Family/[employer] Supervisor, Discussing w/Consultants, Arranging Admission or Transfer, Performing Direct Patient Care at Bedside and - (38 minutes, repeat evaluations, significant hypoxia at arrival now improved.) Discharge Plan Dx/Rx/DC Orders Clinical Impression: Fibrosis, idiopathic pulmonary, Hypoxia, COPD exacerbation, Elevated troponin Disposition Disposition: Acute Care [facility] Discharge Date/Time: 08/17/22 21:19
--- NOTE | 2022-08-17 16:05 | RAD_ITS ---
STUDY: X-RAY CHEST REASON FOR EXAM: Male, 77 years old. SOB TECHNIQUE: Single AP portable view of the chest. COMPARISON: 04/25/2022. FINDINGS: The lungs are hyperexpanded. There are coarsened interstitial markings suggestive of mild chronic fibrosis. Probable scarring in both lung bases. No gross focal infiltrates. No gross effusions. Normal size heart. Previous CABG. Normal mediastinum and memo. Normal visualized pulmonary arteries. There is atherosclerotic calcification of the aortic arch with tortuosity. Normal visualized thoracic spine. Normal visualized ribs, clavicles, and shoulders. There is no demonstrated abnormality of the visualized soft tissue structures of the upper abdomen. RAD/Chest 1 View (Portable) IMPRESSION: Fibrotic COPD. No definite change or acute chest disease. Electronically Signed: Stephen Collado MD at 16:21 EDT ,
[2022-08-17 16:13] LABS: Absolute Lymphocyte Count 1.45 X10^3/uL (0.83-4.51); Absolute Neutrophil Count 6.5 X10^3/uL (2.0-7.7); Basophil# 0.08 X10^3/uL; Basophil% 0.9 % (0-1); Eosinophil# 0.36 X10^3/uL; Eosinophils% 3.8 % (0-5); Hematocrit 34.2 % (40-54); Hemoglobin 11.2 g/dL (13.0-16.5); Lymphocyte # 1.45 X10^3/ul (0.83-4.51); Lymphocyte % 15.4 % (19-41); Mean Corp Hgb Conc 32.7 g/dL (32-36); Mean Corpuscular Hgb 30.6 pg (27.0-32.0); Mean Corpuscular Volume 93.4 fL (80-94); Mean Platelet Vol. 10.5 fl (6.2-12.0); Monocyte# 0.96 X10^3/uL; Monocyte% 10.2 % (0-10); NRBC Flagged by Analyzer 0 % (0-5); Neutrophil # 6.49 X10^3/uL (2.7-7.7); Neutrophil % 69.2 % (47-70); Platelet Count 183 K/mm3 (150-450); RBC Distribution Width SD 52.1 fl (35.1-43.9); Red Blood Count 3.66 M/mm3 (4.6-6.2); White Blood Count 9.4 K/mm3 (4.4-11.0)
[2022-08-17 16:30] LABS: Anion Gap 8 (5-15); BUN 50 mg/dL (7-18); BUN/Creat Ratio 23.3 RATIO (10-20); Calcium,Total 8.7 mg/dL (8.5-10.1); Chloride 113 mmol/L (98-107); Creatinine, Serum 2.15 mg/dL (0.70-1.30); EST Glomerular Filtration Rate 32 mL/min (>60); Est Glom Filt Rate - Afr Amer 39 mL/min (>60); Estimated Creatinine Clearance 27.84 ml/min; Glucose 115 mg/dL (74-106); Potassium 4.7 mmol/L (3.5-5.1); Sodium Level 145 mmol/L (136-145); Troponin-I HS 93 pg/mL (3.0-78.0)
[2022-08-17 16:39] LABS: Lactic Acid 1.2 mmol/L (0.4-1.9)
[2022-08-17 16:46] LABS: D-Dimer Quantitative (DVT/PE) 0.91 FEU/ug/m (0.27-0.49)
--- NOTE | 2022-08-17 17:25 | CT_ITS ---
STUDY: CTA CHEST REASON FOR EXAM: Male, 77 years old. Short of breath, hemoptysis RADIATION DOSAGE (If Supplied By Facility): CTDIvol = ( 11.34 ) mGy, DLP = ( 472.60 ) mGycm TECHNIQUE: The examination was performed with the intravenous administration of IV 100mL Isovue-370. Post-processing of the angiographic images was performed, with multiplanar reformation and 3D reconstruction. Individualized dose optimization techniques were used for this CT. COMPARISON: 04/07/2019. FINDINGS: Normal enhancement of the main pulmonary artery and right and left pulmonary arteries. Normal enhancement of the bilateral peripheral pulmonary arteries. There is no demonstrated pulmonary embolism. There is atherosclerotic calcification of the aortic arch with tortuosity. There is no demonstrated aortic dissection. There is cardiomegaly. There are calcifications of the coronary arteries. Previous CABG. Stable nonspecific mediastinal adenopathy. Stable probable bilateral hilar adenopathy. Normal visualized trachea and bronchi. The lungs are hyper expanded, with flattening of the hemidiaphragms. Bilateral small pleural effusions worse on the right, stable. Stable severe diffuse interstitial fibrosis. No definite focal infiltrates. Normal chest wall structures. There are degenerative changes of thoracic spine. There is diffuse ankylosis of the thoracic spine. Normal visualized upper abdomen. CT/CTA Chest W/WO Contrast IMPRESSION: No demonstrated pulmonary embolism or arterial dissection. Bilateral pleural effusions. Severe fibrotic chronic pulmonary disease. Electronically Signed: Stephen Collado MD at 18:14 EDT ,
[2022-08-17] MEDS: Ipratropium/Albuterol Sulfate 3 ML AMPUL.NEB INHALATION (17:37)
--- NOTE | 2022-08-17 19:15 | CM.ED ---
Social Work SW introduced self and role to patient. SW discussed advance directives with patient. Pt and significant other, Rita, reports they have HCPOA and living will paperwork. Requested they be brought in when able. Akua Torrez PLATE PRINTER, CHAIR CAR ATTENDANT
[2022-08-17] MEDS: MethylPREDNISolone 125 MG/2 ML Vial IV (19:24)
--- NOTE | 2022-08-17 20:08 | PCM.HP.STD ---
HPI - General General Date of Admission: 08/17/22 Date of Service: 08/17/22 Chief Complaint: shortness of breath HPI Narrative EKTA CONWAY, is a 77 M who presents with worsening shortness of breath. The patient was diagnosed in 2019 with pulmonary fibrosis (mild) and was following with Dr Rogers in past. They now go to [facility]. In last 6 weeks he had a walk test on room air without desaturations. The patient takes an inhaler every morning because he is stuffy, otherwise, not on any therapies. Over last 3 days he became more short of breath with ambulation. He would ambulate to another room and drop to 88% on room air. He has coughed up blood streaked sputum and this is new for him, over last 3 days. Never had blood in sputum before. He has no weight loss. Distant smoker in past. He has diagnosis of sleep apnea, does not like using CPAP, so he uses oxygen. He has started using daytime oxygen secondary to above. Denies swelling in legs, sleeps flat, no evidence of heart problems right now. Use to be on 2 mg BUMEX, now he is on 1 mg to prevent fluid buildup. When he arrived to ED he had sat of 78%. This improved to 94-98% on 6 liters. CTA did not show PE or mass. There was hyperinflation with bilateral small pleural effusions worse on the right, stable. [facility] Medical History Anemia in chronic kidney disease (CKD) Arthritis Arthritis Atherosclerosis of coronary artery of [place] heart without angina pectoris Bilateral carotid artery stenosis Chronic cough Chronic diastolic (congestive) heart failure Chronic kidney disease, stage 3 CVA (cerebral vascular accident) Diarrhea Diverticulitis Elevated troponin (04/07/19) Essential (primary) hypertension Flu vaccine need Generalized anxiety disorder GERD (gastroesophageal reflux disease) Gout Hyperlipidemia Hypoxia Increased sputum production Interstitial lung disease FRANCISCO JAVIER (obstructive sleep apnea) Paroxysmal atrial flutter Peripheral vascular occlusive disease Pleural effusion due to CHF (congestive heart failure) (08/27/19) PND (post-nasal drip) Renal artery stenosis Respiratory failure with hypoxia Secondary pulmonary arterial hypertension Stage III chronic kidney disease Stenosis of left subclavian artery Transient ischemic attack Varicose veins of both lower extremities Home Medications aspirin 81 mg chewable tablet 81 mg PO DAILY Heart 08/03/19 [History Last Taken 08/24/19] multivitamin with minerals 1 tab PO DAILY supplement 08/03/19 [History Last Taken 08/24/19] ferrous sulfate 325 mg (65 mg iron) tablet (Feosol) 325 mg PO BID supplement 04/12/20 [History Last Taken Unknown] ascorbate calcium (vitamin C) 500 mg tablet 500 mg PO DAILY Check with primary doctor 09/28/20 [History Last Taken Unknown] atorvastatin 80 mg tablet 80 mg PO DAILY cholesterol lowering #90 tabs 11/30/21 [Rx Last Taken Unknown] ezetimibe 10 mg tablet 10 mg PO DAILY cholesterol #90 tabs 11/30/21 [Rx Last Taken Unknown] lisinopril 40 mg tablet 40 mg PO DAILY Check with primary doctor 08/14/22 [History Last Taken Unknown] mecobalamin (vitamin B12) 10,000 mcg solution for injection 10,000 mcg IM QMONTH Check with primary doctor 08/14/22 [History Last Taken Unknown] nitroglycerin 0.4 mg sublingual tablet 0.4 mg sublingual PRN PRN Angina #25 tabs 08/14/22 [Rx Last Taken Unknown] amlodipine 10 mg tablet 10 mg PO DAILY Check with primary doctor 08/17/22 [History Last Taken Unknown] bumetanide 1 mg tablet 1 mg PO DAILY Check with primary doctor 08/17/22 [History Last Taken Unknown] carvedilol 25 mg tablet 25 mg PO BID Check with primary doctor 08/17/22 [History Last Taken Unknown] doxazosin 4 mg tablet 4 mg PO QHS Check with primary doctor 08/17/22 [History Last Taken Unknown] hydralazine 100 mg tablet 100 mg PO TID Check with primary doctor 08/17/22 [History Last Taken Unknown] sertraline 50 mg tablet 50 mg PO DAILY Check with primary doctor 08/17/22 [History Last Taken Unknown] Allergy/AdvReac Type Severity Reaction Status Date / Time No Known Allergies Allergy Verified 08/17/22 15:38 Family History Son CAD (coronary artery disease) Brother CAD (coronary artery disease) Diabetes Brother CAD (coronary artery disease) Diabetes Other Anemia Arthritis CVA (cerebral vascular accident) Hyperlipemia Hypertension Kidney disease Skin cancer Surgical History H/O basal cell carcinoma excision (09/2018) H/O colonoscopy H/O coronary artery bypass surgery (08/14/12) History of angioplasty of peripheral vessel History of herniorrhaphy History of knee replacement History of left common carotid artery stent placement (2003) History of left heart catheterization (08/13/12) History of right-sided carotid endarterectomy (05/2016) History of stent insertion of renal artery (10/01/19) Social History Smoking Status: Former smoker Tobacco: How many years used: 15 how long ago did patient quit smokin second hand exposure: No alcohol intake: current alcohol intake frequency: holidays/special occasions only substance use type: does not use caffeine: Yes ROS ROS Narrative pertinent positives & negatives in HPI Respiratory/Chest Respiratory/Chest: Reports cough, dyspnea, hemoptysis and shortness of breath with exertion Vital Signs Vital Signs Vital Signs: 08/17/22 15:35 08/17/22 15:39 08/17/22 15:47 Temperature 97.8 F Temperature Source Temporal Pulse Rate 66 78 Respiratory Rate 22 H Respiratory Effort Respiratory Pattern Blood Pressure 162/99 H Blood Pressure Mean 120 Pulse Ox 78 91 Oxygen Delivery Method Room Air Nasal Cannula Room Air Oxygen Flow Rate (L/min) 3 08/17/22 15:49 08/17/22 17:38 08/17/22 15:58 Temperature Temperature Source Pulse Rate 65 76 Respiratory Rate 18 21 H Respiratory Effort Short of Breath Accessory Muscle Use Respiratory Pattern Tachypnea Normal Blood Pressure Blood Pressure Mean Pulse Ox 93 Oxygen Delivery Method Nasal Cannula Oxygen Flow Rate (L/min) 4 08/17/22 16:00 08/17/22 16:00 08/17/22 16:10 Temperature Temperature Source Pulse Rate 62 62 66 Respiratory Rate 26 H 26 H 18 Respiratory Effort Respiratory Pattern Blood Pressure 180/54 H Blood Pressure Mean 92 Pulse Ox 96 96 97 Oxygen Delivery Method Oxygen Flow Rate (L/min) 08/17/22 16:15 08/17/22 16:20 08/17/22 16:30 Temperature Temperature Source Pulse Rate 61 60 66 Respiratory Rate 20 H 19 H 15 Respiratory Effort Respiratory Pattern Blood Pressure 185/50 H 188/53 H Blood Pressure Mean 87 92 Pulse Ox 99 99 96 Oxygen Delivery Method Oxygen Flow Rate (L/min) 08/17/22 16:30 08/17/22 16:40 08/17/22 16:45 Temperature Temperature Source Pulse Rate 66 62 67 Respiratory Rate 15 25 H 23 H Respiratory Effort Respiratory Pattern Blood Pressure 181/58 H Blood Pressure Mean 94 Pulse Ox 96 97 96 Oxygen Delivery Method Oxygen Flow Rate (L/min) 08/17/22 16:50 08/17/22 17:00 08/17/22 17:00 Temperature Temperature Source Pulse Rate 60 63 63 Respiratory Rate 18 22 H 22 H Respiratory Effort Respiratory Pattern Blood Pressure 185/56 H Blood Pressure Mean 94 Pulse Ox 99 98 98 Oxygen Delivery Method Oxygen Flow Rate (L/min) 08/17/22 17:10 08/17/22 17:15 08/17/22 17:20 Temperature Temperature Source Pulse Rate 63 67 64 Respiratory Rate 16 22 H 22 H Respiratory Effort Respiratory Pattern Blood Pressure 187/55 H Blood Pressure Mean 94 Pulse Ox 97 94 99 Oxygen Delivery Method Oxygen Flow Rate (L/min) 08/17/22 17:30 08/17/22 17:30 08/17/22 17:40 Temperature Temperature Source Pulse Rate 65 65 63 Respiratory Rate 19 H 19 H 19 H Respiratory Effort Respiratory Pattern Blood Pressure 192/53 H Blood Pressure Mean 91 Pulse Ox 96 96 97 Oxygen Delivery Method Oxygen Flow Rate (L/min) 08/17/22 17:45 08/17/22 17:57 08/17/22 18:00 Temperature Temperature Source Pulse Rate 63 59 L Respiratory Rate 25 H Respiratory Effort Respiratory Pattern Blood Pressure 195/56 H 190/55 H Blood Pressure Mean 96 94 Pulse Ox 97 96 Oxygen Delivery Method Oxygen Flow Rate (L/min) 08/17/22 18:00 08/17/22 18:10 08/17/22 18:15 Temperature Temperature Source Pulse Rate 59 L 57 L 58 L Respiratory Rate 25 H 20 H 17 Respiratory Effort Respiratory Pattern Blood Pressure 191/55 H Blood Pressure Mean 95 Pulse Ox 96 97 98 Oxygen Delivery Method Oxygen Flow Rate (L/min) 08/17/22 18:20 08/17/22 19:00 Temperature Temperature Source Pulse Rate 59 L 65 Respiratory Rate 18 20 H Respiratory Effort Respiratory Pattern Blood Pressure 193/61 H Blood Pressure Mean 105 Pulse Ox 99 92 Oxygen Delivery Method Nasal Cannula Oxygen Flow Rate (L/min) 3 Weight Weight: 160 lb 11.2 oz Body Mass Index (BMI) 24.4 Physical Exam Const alert HEENT normocephalic and head/scalp atraumatic Eyes PERRL and EOMs intact bilaterally Neck no lymphadenopathy and supple Resp normal respiratory effort and no retractions Resp Narrative: He has significant crackles in right lung base, less crackles in left lung base. Nothing in apex of lungs. A few tiny wheezes were noted. He has a cough at times, with some phlegm noises Cardio regular rate and regular rhythm GI normal to inspection, nondistended, normoactive bowel sounds Extremity normal to inspection Psych affect normal Results Lab / Micro Data Result Diagrams: 08/17/22 15:48 08/17/22 15:48 Labs: Laboratory Results - last 24 hr 08/17/22 15:48: WBC 9.4, RBC 3.66 L, Hgb 11.2 L, Hct 34.2 L, MCV 93.4, MCH 30.6, MCHC 32.7, RDW Std Deviation 52.1 H, RDW Coeff of Lisa 15.0 H, Plt Count 183, MPV 10.5, Immature Gran % (Auto) 0.500, Neut % (Auto) 69.2, Lymph % (Auto) 15.4 L, [place] % (Auto) 10.2 H, Eos % (Auto) 3.8, Baso % (Auto) 0.9, Absolute Neuts (auto) 6.5, Absolute Lymphs (auto) 1.45, Nucleated RBC % 0 08/17/22 15:48: D-Dimer Quant (PE/DVT) 0.91 H* 08/17/22 15:48: Sodium 145, Potassium 4.7, Chloride 113 H, Carbon Dioxide 24.0, Anion Gap 8, BUN 50 H, Creatinine 2.15 H, Estim Creat Clear Calc 27.84, Est GFR (MDRD) Af Amer 39 L, Est GFR (MDRD) Non-Af 32 L, BUN/Creatinine Ratio 23.3 H, Glucose 115 H, Calcium 8.7, Troponin I High Sens 93 H 08/17/22 15:48: Lactic Acid 1.2 08/17/22 15:48: B-Natriuretic Peptide 1309.4 H Radiology Impression Chest X-Ray 08/17/22 16:05 IMPRESSION: Fibrotic COPD. No definite change or acute chest disease. Electronically Signed: Stephen Collado MD at 16:21 EDT , Chest CTA 08/17/22 17:25 IMPRESSION: No demonstrated pulmonary embolism or arterial dissection. Bilateral pleural effusions. Severe fibrotic chronic pulmonary disease. Electronically Signed: Stephen Collado MD at 18:14 EDT , Assessment & Plan Assessment/Plan (1) Chronic hypoxemic respiratory failure: PLAN: Oxygen therapy Pulmonary consult given hemoptysis & medical management. Continue Duonebs [place] Follow blood culture ordered in ED. No malignancy on this scan. No PE. no signs to suggest pnuemonia other than cough & will hold off on antibiotics for now. Not at risk for TB. I suspect hypoxemia is overal related to underlying IPF Hold on heparin or lovenox until the bleeding risk (hemoptysis) is known to be low. (2) Cough: PLAN: Mucinex BID Robitussin PRN (3) Interstitial lung disease: (4) Paroxysmal atrial flutter: PLAN: Continue patient on Coreg (5) H/O coronary artery bypass surgery: PLAN: Continue Coreg, aspirin and rest of home meds. (6) Chronic diastolic (congestive) heart failure: PLAN: Continue Coreg, aspirin and resume home bumex to avoid fluid accumulation Does not appear to be in exacerbation. (7) Essential (primary) hypertension: PLAN: On norvasc and Lisinopril (8) Stage III chronic kidney disease: PLAN: monitor on BMP Fluids would be more harm than benefit given hypoxia and chf hx Charges/Coding Visit Charges Inpatient E&M: 54471 Init Hosp L3
--- NOTE | 2022-08-17 20:11 | ED.RN ---
Pt ambulated to bathroom on 4L NC. Dropped to 81%. Pt showing no signs of respiratory distress, put on 6L NC and increased to 96%. Resting comfortably at 93% on 4L.
[2022-08-17] MEDS: hydrALAZINE 50 MG Tablet 100 MG PO ×2 (21:17→22:47)
[2022-08-17] MEDS: Doxazosin 4 MG Tablet PO (22:47)
[2022-08-17] MEDS: guaiFENesin 600 MG Tablet PO (22:47)
[2022-08-17] MEDS: NIFEdipine 10 MG Capsule PO (22:48)
[2022-08-17] MEDS: 0.9% Saline Lock 10 ML Syringe IV (22:51)
[2022-08-18] VITALS (20 sets, daily range): BP systolic 150–191; BP diastolic 45–74; PULSE 61–80; RESP 18–20; TEMP 36.6–37.1; O2SAT 93–96
[2022-08-18] MEDS: Ipratropium/Albuterol Sulfate 3 ML AMPUL.NEB INHALATION ×4 (01:10→19:35)
[2022-08-18] MEDS: hydrALAZINE 50 MG Tablet 100 MG PO ×3 (05:37→22:05)
[2022-08-18] MEDS: Carvedilol 25 MG Tablet PO ×2 (05:37→16:11)
--- NOTE | 2022-08-18 06:58 | NURSING ---
Dr Salas notified of consult
--- NOTE | 2022-08-18 07:36 | PN.HOSP_ITS ---
Reason for Visit Reason for Visit: Diagnoses Essential (primary) hypertension (08/17/22) Unspecified atrial flutter (08/17/22) Chronic diastolic (congestive) heart failure (08/17/22) Interstitial pulmonary disease, unspecified (08/17/22) Chronic respiratory failure with hypoxia (08/17/22) Chronic kidney disease, stage 3 (moderate) (08/17/22) Cough, unspecified (08/17/22) Presence of aortocoronary bypass graft (08/17/22) Subjective Subjective Patient is a 77-year-old gentleman with history of pulmonary fibrosis who presented with progressive shortness of breath Objective Data Objective Data Vital Signs: Vital Signs Temp Pulse Resp BP Pulse Ox O2 Del Method O2 Flow Rate 98.1 F 73 20 H 170/53 H 94 Nasal Cannula 4 08/18/22 06:43 08/18/22 06:43 08/18/22 06:43 08/18/22 06:43 08/18/22 06:43 08/18/22 06:43 08/18/22 06:43 Oxygen Flow Rate (L/min) 4 Oxygen Delivery Method Nasal Cannula Weight: 72.7 kg Body Mass Index (BMI) 24.3 Intake & Output: Intake and Output for Last 24 Hours 08/16/22 08/17/22 08/18/22 23:59 23:59 23:59 Intake Total 500 / 700 200 / 200 Balance 500 / 700 200 / 200 Lab / Micro Data Result Diagrams: 08/17/22 15:48 08/18/22 06:50 Labs: Laboratory Results - last 24 hr 08/17/22 15:48: WBC 9.4, RBC 3.66 L, Hgb 11.2 L, Hct 34.2 L, MCV 93.4, MCH 30.6, MCHC 32.7, RDW Std Deviation 52.1 H, RDW Coeff of Lisa 15.0 H, Plt Count 183, MPV 10.5, Immature Gran % (Auto) 0.500, Neut % (Auto) 69.2, Lymph % (Auto) 15.4 L, [place] % (Auto) 10.2 H, Eos % (Auto) 3.8, Baso % (Auto) 0.9, Absolute Neuts (auto) 6.5, Absolute Lymphs (auto) 1.45, Nucleated RBC % 0 08/17/22 15:48: D-Dimer Quant (PE/DVT) 0.91 H* 08/17/22 15:48: Sodium 145, Potassium 4.7, Chloride 113 H, Carbon Dioxide 24.0, Anion Gap 8, BUN 50 H, Creatinine 2.15 H, Estim Creat Clear Calc 27.84, Est GFR (MDRD) Af Amer 39 L, Est GFR (MDRD) Non-Af 32 L, BUN/Creatinine Ratio 23.3 H, Glucose 115 H, Calcium 8.7, Troponin I High Sens 93 H 08/17/22 15:48: Lactic Acid 1.2 08/17/22 15:48: B-Natriuretic Peptide 1309.4 H Radiography Diagnostic Testing: Radiology Impression Chest X-Ray 08/17/22 16:05 IMPRESSION: Fibrotic COPD. No definite change or acute chest disease. Electronically Signed: Stephen Collado MD at 16:21 EDT , Chest CTA 08/17/22 17:25 IMPRESSION: No demonstrated pulmonary embolism or arterial dissection. Bilateral pleural effusions. Severe fibrotic chronic pulmonary disease. Electronically Signed: Stephen Collado MD at 18:14 EDT , Physical Exam Narrative GENERAL: Dyspneic at rest HEENT: Atraumatic; normocephalic EYES; Anicteric, Normal Conjunctiva NECK; supple, normal thyroid, RESPIRATORY: Diminished to auscultation CARDIOVASCULAR: Regular S1 S2, GI: soft, normoactive bowel sounds, : No Renal angle tenderness; EXTREMITIES: No edema, no clubbing, MUSCULOSKELETAL: no muscle wasting NEURO: Awake; no lateralizing signs. SKIN: No Rash PSYCH; Flat affect Assessment & Plan Assessment/Plan (1) Hypoxia: PLAN: Plan Patient is a 77-year-old gentleman with history of pulmonary fibrosis who presented with progressive shortness of breath 1. Acute hypoxia ? Secondary to patient pulmonary fibrosis. Admitted to regular nursing floor management supplemental oxygen titrated to keep saturation greater than 90, bronchodilator therapy and consultation placed to pulmonary medicine 2. Coronary artery disease ? With previous history of CABG 3. Hypertension - Blood pressure controlled, home medications continued with dose adjustment as needed 4. Paroxysmal A-fib/flutter ? Rate controlled patient was previously on systemic anticoagulation and had to be taken off not sure of the reasons 5. Carotid artery disease ? With history of right CEA in 2017 and left carotid stenting in 2003 6. Dyslipidemia -Patient is on statin therapy, continued at home dose 7. Chronic congestive heart failure with preserved ejection fraction ? Patient is on diuretic therapy did continue 8. Obstructive sleep apnea ? On CPAP at night 9. Chronic hypoxic respiratory failure ? Secondary to patient pulmonary fibrosis on home oxygen 3 L at rest 10. DVT prophylaxis ? SC Lovenox Time spent in the patient's overall evaluation,decision-making process, review of diagnostic data, adjustment of management, discussion with other providers, nursing nursing and ancillary staff involved in patient's care documentation, 52 Minutes Charges/Coding Visit Charges Inpatient E&M: 77603 [facility] [[email or web address]] Hosp L3
[2022-08-18 07:44] LABS: Anion Gap 8 (5-15); BUN 50 mg/dL (7-18); BUN/Creat Ratio 25.6 RATIO (10-20); Calcium,Total 8.3 mg/dL (8.5-10.1); Chloride 114 mmol/L (98-107); Creatinine, Serum 1.95 mg/dL (0.70-1.30); EST Glomerular Filtration Rate 36 mL/min (>60); Est Glom Filt Rate - Afr Amer 43 mL/min (>60); Estimated Creatinine Clearance 30.69 ml/min; Glucose 165 mg/dL (74-106); Potassium 4.9 mmol/L (3.5-5.1); Sodium Level 141 mmol/L (136-145)
[2022-08-18] MEDS: Bumetanide 2 MG Tablet 1 MG PO (07:54)
[2022-08-18] MEDS: Ferrous Sulfate 325 MG Tablet PO ×2 (07:54→16:11)
[2022-08-18] MEDS: Multivitamins,Ther W-Minerals Tablet 1 TABLET PO (07:54)
[2022-08-18] MEDS: guaiFENesin 600 MG Tablet PO ×2 (07:55→22:06)
[2022-08-18] MEDS: Ascorbic Acid 500 MG Tablet PO (07:55)
[2022-08-18] MEDS: amLODIPine 10 MG Tablet PO (07:55)
[2022-08-18] MEDS: Lisinopril 40 MG Tablet PO (07:56)
[2022-08-18] MEDS: Ezetimibe 10 MG Tablet PO (07:57)
[2022-08-18] MEDS: Aspirin 81 MG TAB.CHEW PO (07:58)
[2022-08-18] MEDS: Sertraline 50 MG Tablet PO (07:58)
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
--- NOTE | 2022-08-18 14:00 | CASEMGMT ---
RN HAILEY TEACHER OF THE EMOTIONALLY DISTURBED CM to room to meet with patient for initial transition planning/care coordination assessment. RN HAILEY introduced self and role at [facility].? Pt voices understanding and consents to assessment at this time.? Pt sitting up in chair in room in no distress at this time.? Son, Baudilio, and DIL @ bedside and pt agreeable to them being present during assessment. Pt is A/O at this time and answers all questions appropriately.?? Care providers, pharmacy, and demographics verified/updated at this time. PCP: Dr Lockhart Specialists: Dr Kimball--pulmnonologist @ [facility], Proposal Director @ [facility] Preferred Pharmacy: [facility] Insurance: Delilah MILLARD Prescription Benefit:? yes Living Will/HPOA:? Pt does not currently have LW/HCPOA and declines info at this time.? Pt made aware that he can contact SW as an out-pt and make appt in the future if he decides he would like to talk with someone about this or would like to utilize [facility] social work for advanced directive completion.? LNOK: Son, Nick. Baudilio Orosco. Sig other, Rita Living Arrangements: Lives w/Rita in one-story home w/basement and one step to enter. Pt states rarely goes to the basement. Indep w/ADL's. Rita does pt's med mgnt. They go grocery shopping together and share home tasks. Transportation: Pt states drives self and states no transportation concerns at this time.? Rita also drives. DME: States has the following DME:? Pulse ox, nebulizer, and O2 @ HS thru [employer] @ 2l/m. Has concentrator. Pt also has an [employer]/portable O2 concentrator available, if needed, but states it only goes up to 3 l/m. ?Pt states no need for further DME at this time.? HHC/SNF: No hx of either. No needs identified at this time. Pt is not home-bound and would not meet criteria for HHC. Discussed this w/pt and family and they voice understanding. Discussed Pt Link and pt is agreeable to consult. Order placed. Pt wishes to return home and states has no concerns with going home at time of discharge.? Pt states does not smoke or drink ETOH.? CM to follow for home oxygen needs and any further discharge planning/needs.? Pt voices no further concerns/needs at this time.? Advised pt to ask for CM if any further questions/concerns/needs arise.? Voices understanding. PLAN: ?Home. Follow for any increase in home O2 @ d/c. If pt needs O2 @ rest or w/exertion, will need new script faxed to [facility]. If pt needs 3 lm or less O2, he can d/c with his [employer]/portable O2 concentrator. If he needs more than 3 l/m O2, will need to send portable O2 tank home w/pt from [facility] supply and have [facility] provide additional portable O2 tanks to pt. Consult placed for Pt Link Sunny JUNIOR RN CM
[2022-08-18] MEDS: Doxazosin 4 MG Tablet PO (22:05)
[2022-08-18] MEDS: 0.9% Saline Lock 10 ML Syringe IV (22:06)
[2022-08-18] MEDS: Atorvastatin Calcium 80 MG Tablet PO (22:06)
[2022-08-19] VITALS (17 sets, daily range): BP systolic 141–180; BP diastolic 47–66; PULSE 51–73; RESP 18–20; TEMP 36.3–37; O2SAT 82–98
[2022-08-19 06:12] LABS: Anion Gap 7 (5-15); BUN 66 mg/dL (7-18); BUN/Creat Ratio 27.5 RATIO (10-20); Calcium,Total 8.3 mg/dL (8.5-10.1); Chloride 112 mmol/L (98-107); EST Glomerular Filtration Rate 28 mL/min (>60); Est Glom Filt Rate - Afr Amer 34 mL/min (>60); Estimated Creatinine Clearance 24.94 ml/min; Glucose 123 mg/dL (74-106); Potassium 5.4 mmol/L (3.5-5.1); Sodium Level 140 mmol/L (136-145)
[2022-08-19] MEDS: hydrALAZINE 50 MG Tablet 100 MG PO ×3 (06:31→23:01)
--- NOTE | 2022-08-19 07:31 | PN.HOSP_ITS ---
Reason for Visit Reason for Visit: Diagnoses Anemia in chronic kidney disease (08/17/22) Obstructive sleep apnea (adult) (pediatric) (08/17/22) Essential (primary) hypertension (08/17/22) Unspecified atrial flutter (08/17/22) Chronic diastolic (congestive) heart failure (08/17/22) Idiopathic pulmonary fibrosis (08/17/22) Interstitial pulmonary disease, unspecified (08/17/22) Chronic respiratory failure with hypoxia (08/17/22) Chronic kidney disease, stage 3 (moderate) (08/17/22) Chronic kidney disease, unspecified (08/17/22) Hemoptysis (08/17/22) Cough, unspecified (08/17/22) Hypoxemia (08/17/22) Postnasal drip (08/17/22) Presence of aortocoronary bypass graft (08/17/22) Subjective Subjective Seen still remains significantly dyspneic at rest with activity. Diagnostic data reviewed significant for potassium of Objective Data Objective Data Vital Signs: Vital Signs Temp Pulse Resp BP Pulse Ox O2 Del Method O2 Flow Rate 97.5 F L 73 20 H 162/61 H 94 Nasal Cannula 2 08/19/22 06:28 08/19/22 06:31 08/19/22 06:28 08/19/22 06:31 08/19/22 06:28 08/19/22 06:28 08/19/22 06:28 Oxygen Flow Rate (L/min) 2 Oxygen Delivery Method Nasal Cannula Weight: 72.7 kg Body Mass Index (BMI) 24.3 Intake & Output: Intake and Output for Last 24 Hours 08/17/22 08/18/22 08/19/22 23:59 23:59 23:59 Intake Total 500 / 700 1949 / 1949 Balance 500 / 700 1949 / 1949 Lab / Micro Data Result Diagrams: 08/17/22 15:48 08/19/22 05:40 Labs: Laboratory Results - last 24 hr 08/18/22 06:50: Sodium 141, Potassium 4.9, Chloride 114 H, Carbon Dioxide 19.0 L , Anion Gap 8, BUN 50 H, Creatinine 1.95 H, Estim Creat Clear Calc 30.69, Est GFR (MDRD) Af Amer 43 L, Est GFR (MDRD) Non-Af 36 L, BUN/Creatinine Ratio 25.6 H , Glucose 165 H, Calcium 8.3 L 08/19/22 05:40: Sodium 140, Potassium 5.4 H, Chloride 112 H, Carbon Dioxide 21.0, Anion Gap 7, BUN 66 H, Creatinine 2.40 H, Estim Creat Clear Calc 24.94, Est GFR (MDRD) Af Amer 34 L, Est GFR (MDRD) Non-Af 28 L, BUN/Creatinine Ratio 27.5 H, Glucose 123 H, Calcium 8.3 L Physical Exam Narrative GENERAL: Dyspneic at rest HEENT: Atraumatic; normocephalic EYES; Anicteric, Normal Conjunctiva NECK; supple, normal thyroid, RESPIRATORY: Diminished to auscultation CARDIOVASCULAR: Regular S1 S2, GI: soft, normoactive bowel sounds, : No Renal angle tenderness; EXTREMITIES: No edema, no clubbing, MUSCULOSKELETAL: no muscle wasting NEURO: Awake; no lateralizing signs. SKIN: No Rash PSYCH; Flat affect Assessment & Plan Assessment/Plan (1) Hypoxia: PLAN: Plan Patient is a 77-year-old gentleman with history of pulmonary fibrosis who presented with progressive shortness of breath 1. Acute hypoxia ? Secondary to patient pulmonary fibrosis. Admitted to regular nursing floor management supplemental oxygen titrated to keep saturation greater than 90, bronchodilator therapy and consultation placed to pulmonary medicine ? 08/19/2022 patient still remains dyspneic at rest. Continue with current treatment regimen 2. Coronary artery disease ? With previous history of CABG 3. Hypertension - Blood pressure controlled, home medications continued with dose adjustment as needed 4. Paroxysmal A-fib/flutter ? Rate controlled patient was previously on systemic anticoagulation and had to be taken off not sure of the reasons 5. Carotid artery disease ? With history of right CEA in 2016 and left carotid stenting in 2003 6. Dyslipidemia -Patient is on statin therapy, continued at home dose 7. Chronic congestive heart failure with preserved ejection fraction ? Patient is on diuretic therapy did continue ? 07/19/2022 held patient diuretic therapy given his worsening kidney function 8. Acute kidney injury ? Superimposed on chronic kidney disease stage III patient diuretic therapy held started on gentle IV fluids repeat labs ordered for a.m. 9. Hyperkalemia ? Secondary to worsening kidney function as well as patient being on ELEAZAR inhibitors his lisinopril was discontinued given Kayexalate repeat labs ordered for monitoring 10. Obstructive sleep apnea ? On CPAP at night 11. Chronic hypoxic respiratory failure ? Secondary to patient pulmonary fibrosis on home oxygen 3 L at rest 12. DVT prophylaxis ? SC Lovenox, dose adjusted for kidney function Time spent in the patient's overall evaluation,decision-making process, review of diagnostic data, adjustment of management, discussion with other providers, nursing nursing and ancillary staff involved in patient's care documentation, 52 Minutes Charges/Coding Visit Charges Inpatient E&M: 17621 [facility] L3
[2022-08-19] MEDS: Ipratropium/Albuterol Sulfate 3 ML AMPUL.NEB INHALATION ×2 (07:39→19:35)
[2022-08-19] MEDS: Aspirin 81 MG TAB.CHEW PO (08:20)
[2022-08-19] MEDS: Multivitamins,Ther W-Minerals Tablet 1 TABLET PO (08:20)
[2022-08-19] MEDS: guaiFENesin 600 MG Tablet PO ×2 (08:20→23:01)
[2022-08-19] MEDS: amLODIPine 10 MG Tablet PO (08:20)
[2022-08-19] MEDS: Ferrous Sulfate 325 MG Tablet PO ×2 (08:20→16:43)
[2022-08-19] MEDS: Carvedilol 25 MG Tablet PO ×2 (08:20→16:43)
[2022-08-19] MEDS: Ascorbic Acid 500 MG Tablet PO (08:20)
[2022-08-19] MEDS: Sertraline 50 MG Tablet PO (08:21)
[2022-08-19] MEDS: Ezetimibe 10 MG Tablet PO (08:21)
[2022-08-19] MEDS: Sodium Polystyrene Sulfonate 15 GM/60 ML UDC 30 GM PO (08:26)
[2022-08-19 16:22] LABS: Anion Gap 9 (5-15); BUN 77 mg/dL (7-18); BUN/Creat Ratio 30.8 RATIO (10-20); Calcium,Total 8.5 mg/dL (8.5-10.1); Chloride 113 mmol/L (98-107); EST Glomerular Filtration Rate 27 mL/min (>60); Est Glom Filt Rate - Afr Amer 32 mL/min (>60); Estimated Creatinine Clearance 23.94 ml/min; Glucose 149 mg/dL (74-106); Potassium 4.3 mmol/L (3.5-5.1); Sodium Level 142 mmol/L (136-145)
[2022-08-19] MEDS: Atorvastatin Calcium 80 MG Tablet PO (23:01)
[2022-08-19] MEDS: Doxazosin 4 MG Tablet PO (23:01)
[2022-08-20] VITALS (9 sets, daily range): BP systolic 160–187; BP diastolic 55–62; PULSE 59–72; RESP 18–20; TEMP 36.5–36.8; O2SAT 87–97
[2022-08-20] MEDS: Ipratropium/Albuterol Sulfate 3 ML AMPUL.NEB INHALATION ×2 (01:12→07:22)
[2022-08-20] MEDS: hydrALAZINE 50 MG Tablet 100 MG PO ×2 (06:01→14:08)
[2022-08-20] MEDS: 0.9% Saline Lock 10 ML Syringe IV (06:08)
[2022-08-20 06:41] LABS: Anion Gap 7 (5-15); BUN 75 mg/dL (7-18); BUN/Creat Ratio 34.7 RATIO (10-20); Chloride 113 mmol/L (98-107); Creatinine, Serum 2.16 mg/dL (0.70-1.30); EST Glomerular Filtration Rate 32 mL/min (>60); Est Glom Filt Rate - Afr Amer 38 mL/min (>60); Estimated Creatinine Clearance 27.71 ml/min; Glucose 93 mg/dL (74-106); Potassium 4.4 mmol/L (3.5-5.1); Sodium Level 140 mmol/L (136-145)
--- NOTE | 2022-08-20 07:00 | US_ITS ---
STUDY: RENAL ULTRASOUND - COMPLETE REASON FOR EXAM: Male, 77 years old. Elevated BUN/creatinine TECHNIQUE: Ultrasound evaluation of the kidneys was performed with real-time and static feliciano-scale imaging. COMPARISON: None. FINDINGS: RIGHT KIDNEY: Normal location of the right kidney, which is normal in size. The right kidney measures 9.9 x 4.2 x 4.4 cm. There is a normal cortex of the right kidney. The renal cortex measures 1.7 cm. There is a simple 1.1 cm cyst. There is a nonobstructing stone measuring 7 mm. There is no right hydronephrosis. DISTAL RIGHT URETER: There is non-visualization of the distal right ureter. There is no demonstrated right ureterovesical junction calculus. There is a visualized right ureteral jet. LEFT KIDNEY: Normal location of the left kidney, which is normal in size. The left kidney measures 10.8 x 4.0 x 5.3 cm. There is a normal cortex of the left kidney. The renal cortex measures 1.3 cm. There is no left renal mass or cyst. There are no left renal calculi. There is no left hydronephrosis. DISTAL LEFT URETER: There is non-visualization of the distal left ureter. There is no demonstrated left ureterovesical junction calculus. There is a visualized left ureteral jet. AORTA: There is no elongation or tortuosity of the abdominal aorta. I.V.C.: The IVC is patent. BLADDER: The distended urinary bladder has a volume of 298 ml. Patient did not void. There is a normal wall thickness of the distended urinary bladder. There is no demonstrated mass within the urinary bladder. There are no demonstrated bladder calculi. US/Kidney and Bladder IMPRESSION: No suspicious sonographic findings, simple right renal cyst, nonobstructing right renal stone, no specific follow-up needed Electronically Signed: Rachid Zelaya MD at 9:15 EDT ,
[2022-08-20] MEDS: Aspirin 81 MG TAB.CHEW PO (08:52)
[2022-08-20] MEDS: Carvedilol 25 MG Tablet PO (08:52)
[2022-08-20] MEDS: Multivitamins,Ther W-Minerals Tablet 1 TABLET PO (08:53)
[2022-08-20] MEDS: Ferrous Sulfate 325 MG Tablet PO (08:53)
--- NOTE | 2022-08-20 08:58 | PN.HOSP_ITS ---
Reason for Visit Reason for Visit: Diagnoses Anemia in chronic kidney disease (08/17/22) Obstructive sleep apnea (adult) (pediatric) (08/17/22) Essential (primary) hypertension (08/17/22) Unspecified atrial flutter (08/17/22) Chronic diastolic (congestive) heart failure (08/17/22) Idiopathic pulmonary fibrosis (08/17/22) Interstitial pulmonary disease, unspecified (08/17/22) Chronic respiratory failure with hypoxia (08/17/22) Chronic kidney disease, stage 3 (moderate) (08/17/22) Chronic kidney disease, unspecified (08/17/22) Hemoptysis (08/17/22) Cough, unspecified (08/17/22) Hypoxemia (08/17/22) Postnasal drip (08/17/22) Presence of aortocoronary bypass graft (08/17/22) Objective Data Objective Data Vital Signs: Vital Signs Temp Pulse Resp BP Pulse Ox O2 Del Method O2 Flow Rate 97.9 F 72 18 187/55 H 92 Nasal Cannula 2 08/20/22 05:57 08/20/22 07:23 08/20/22 07:23 08/20/22 06:01 08/20/22 07:23 08/20/22 07:23 08/20/22 07:23 Oxygen Flow Rate (L/min) 2 Oxygen Delivery Method Nasal Cannula Weight: 72.7 kg Body Mass Index (BMI) 24.3 Intake & Output: Intake and Output for Last 24 Hours 08/18/22 08/19/22 08/20/22 23:59 23:59 23:59 Intake Total 1949 Balance 1949 Lab / Micro Data Result Diagrams: 08/17/22 15:48 08/20/22 05:55 Labs: Laboratory Results - last 24 hr 08/19/22 15:52: Sodium 142, Potassium 4.3, Chloride 113 H, Carbon Dioxide 20.0 L , Anion Gap 9, BUN 77 H, Creatinine 2.50 H, Estim Creat Clear Calc 23.94, Est GFR (MDRD) Af Amer 32 L, Est GFR (MDRD) Non-Af 27 L, BUN/Creatinine Ratio 30.8 H , Glucose 149 H, Calcium 8.5 08/20/22 05:55: Sodium 140, Potassium 4.4, Chloride 113 H, Carbon Dioxide 20.0 L , Anion Gap 7, BUN 75 H, Creatinine 2.16 H, Estim Creat Clear Calc 27.71, Est GFR (MDRD) Af Amer 38 L, Est GFR (MDRD) Non-Af 32 L, BUN/Creatinine Ratio 34.7 H , Glucose 93, Calcium 8.0 L Assessment & Plan Assessment/Plan (1) Hypoxia: PLAN: Plan Patient is a 77-year-old gentleman with history of pulmonary fibrosis who presented with progressive shortness of breath 1. Acute hypoxia? Secondary to patient pulmonary fibrosis -Admitted to regular nursing floor management supplemental oxygen titrated to keep saturation greater than 90, bronchodilator therapy and consultation placed to pulmonary medicine ? 08/19/2022 patient still remains dyspneic at rest. Continue with current treatment regimen -08/20: Was evaluated by pulmonology who recommended O2 3 to 5 L with exertion and no present antifibrotic agent. On d/c needs 6-minute walk test with oxygen titration with the pulmonary lab, overnight oximetry on 2 L/min with DASCO to be done within a month of discharge and will need to follow-up with pulmonology upon discharge as well 2. Coronary artery disease ? With previous history of CABG 3. Hypertension - Blood pressure controlled, home medications continued with dose adjustment as needed 4. Paroxysmal A-fib/flutter ? Rate controlled patient was previously on systemic anticoagulation and had to be taken off not sure of the reasons 5. Carotid artery disease ? With history of right CEA in 2016 and left carotid stenting in 2003 6. Dyslipidemia -Patient is on statin therapy, continued at home dose 7. Chronic congestive heart failure with preserved ejection fraction ? Patient is on diuretic therapy did continue ? 07/19/2022 held patient diuretic therapy given his worsening kidney function 8. Acute kidney injury on chronic kidney stage IIIb ? Superimposed on chronic kidney disease stage III patient diuretic therapy held started on gentle IV fluids repeat labs ordered for a.m. -08/20: Renal ultrasound pending, creatinine 2.5 yesterday improved to 2.16 today. Home lisinopril held 9. Hyperkalemia-resolved ? Secondary to worsening kidney function as well as patient being on ELEAZAR inhibitors his lisinopril was discontinued given Kayexalate repeat labs ordered for monitoring -08/20: Resolved 10. Obstructive sleep apnea ? On CPAP at night 11. Chronic hypoxic respiratory failure ? Secondary to patient pulmonary fibrosis on home oxygen 3 L at rest 12. DVT prophylaxis ? SC Lovenox, dose adjusted for kidney function Time spent in the patient's overall evaluation,decision-making process, review of diagnostic data, adjustment of management, discussion with other providers, nursing nursing and ancillary staff involved in patient's care documentation, 52 Minutes
[2022-08-20] MEDS: guaiFENesin 600 MG Tablet PO (09:22)
[2022-08-20] MEDS: amLODIPine 10 MG Tablet PO (09:22)
[2022-08-20] MEDS: Ezetimibe 10 MG Tablet PO (09:22)
[2022-08-20] MEDS: Ascorbic Acid 500 MG Tablet PO (09:23)
[2022-08-20] MEDS: Sertraline 50 MG Tablet PO (09:23)
--- NOTE | 2022-08-20 12:49 | PCM.DC ---
Discharge Instructions Diet Discharge Diet: - (-DASH diet, 3000 mg sodium restriction, 2 L fluid restriction) Activity Discharge Activity: Return to Normal Activity Follow Up Care Test Results: Test results from this visit will be discussed in further detail at your follow-up appointment, if applicable. Discharge Plan Admission Admit Date/Time: 08/17/22 20:25 Primary Reason for Your Visit: Shortness of breath Attending Provider: Emilee Song Primary Care Provider: Virginie Lockhart Consulting Providers: Simón Mo ; Ian Rogers ; Jeffrey Salas ; Daivd Sandoval ; Aviva Hilario NP ; Alexsander Kinsey ; Simón Batres Instructions Patient Instructions: Shortness of Breath Coping, ED Dyspnea Additional Instructions / Restrictions: DISCHARGE INSTRUCTIONS PLEASE READ *Please take this with you to your next doctors appointment* -Please follow-up with your coal drier operator upon discharge. Please call their office to schedule hospital follow-up appointment upon discharge. -You will need a 6-minute walk test with oxygen titration with the pulmonary lab and an overnight oximetry test on 2 L of oxygen with [place] within a month of discharge. This will need to be coordinated through your pulmonary office -Would recommend lab work (hemoglobin) to check your blood counts in 7 days through your primary care physician's office or pulmonology office due to your recent episode of streaks of blood when he coughed. Please call their office upon discharge to obtain order for lab work. -Would recommend lab work (BMP) to check your kidney function and potassium in 2 to 3 days through your primary care physician's office. Please call their office upon discharge to obtain order for lab work. -You are restarted on your bumetanide which is your water pill given your improvement in kidney function so will be important that you have the lab work done. Your lisinopril remains on hold however until after your lab work and you discuss with your primary care physician to avoid worsening of kidney function or potassium -Weigh yourself every day. A sudden weight gain can mean you are retaining fluid. Weigh yourself at the same time of day and in the same kind of clothes. Ideally, weigh yourself first thing in the morning after you empty your bladder, but before you eat breakfast. -Please call your physician if your weight goes up by more than 2 pounds in 1 day or 5 pounds in 1 week. This can be a sign that you are retaining more fluid than you should be. -Please call your primary care provider's office upon discharge to schedule a hospital follow up within 1 week. -For any concerning signs or symptoms please call 911 or proceed to the nearest emergency department Discharge Orders/Prescriptions Prescriptions: Continued ferrous sulfate [Feosol] 325 mg (65 mg iron) tablet 325 mg PO BID ascorbate calcium (vitamin C) 500 mg tablet 500 mg PO DAILY mecobalamin (vitamin B12) 10,000 mcg recon soln 10,000 mcg IM QMONTH nitroglycerin 0.4 mg tablet, sublingual 0.4 mg SL PRN PRN (Reason: Angina) Qty: 25 3RF multivitamin with minerals 1 EACH tablet 1 tab PO DAILY aspirin 81 MG tablet,chewable 81 mg PO DAILY amlodipine 10 mg tablet 10 mg PO DAILY hydralazine 100 mg tablet 100 mg PO TID doxazosin 4 mg tablet 4 mg PO QHS carvedilol 25 mg tablet 25 mg PO BID bumetanide 1 mg tablet 1 mg PO DAILY sertraline 50 mg tablet 50 mg PO DAILY atorvastatin 80 mg tablet 80 mg PO DAILY Qty: 90 3RF ezetimibe 10 mg tablet 10 mg PO DAILY Qty: 90 3RF Held lisinopril 40 mg tablet 40 mg PO DAILY Hold Instructions: Resume on 08/29/22. Hold until after your lab work is rechecked and you have discussed with your primary care physician Referrals / Follow Up: [facility], pulmonology [Other] - Within 1 Week ( -Please follow-up with your coal drier operator upon discharge. Please call their office to schedule hospital follow-up appointment upon discharge.) Virginie Lockhart MD [Primary Care Provider] - Within 1 Week Disposition Disposition (needs filled in before D/C Order can be placed): Home, Self Care
--- NOTE | 2022-08-20 12:52 | PCM.DC.SUM ---
Providers Date of Admission: 08/17/22 Date of Discharge: 08/20/22 Primary Care Physician: Dr. Virginie Lockhart MD Consultations 08/17/22 22:14 Consult: Infectious Disease Physician / Pulmonary Medicine Routine Consulting Provider: Pulmonary Medicine lavern Cyr Reason for Consult: eval of hemoptysisi EMERGENT Consult: No MD Notified: Yes Date Notified: 08/18/22 Time Notified: 06:58 Method of Notification: Verbal Reason For Visit: HYPOXEMIC RESPIRATORY FAILURE Diagnosis Discharge Diagnosis (1) Hypoxia: Status: Acute Code(s): R09.02 - Hypoxemia Plan Patient is a 77-year-old gentleman with history of pulmonary fibrosis who presented with progressive shortness of breath 1. Acute hypoxia on chronic hypoxia secondary to idiopathic pulmonary fibrosis -Admitted to regular nursing floor management supplemental oxygen titrated to keep saturation greater than 90, bronchodilator therapy and consultation placed to pulmonary medicine ? 08/19/2022 patient still remains dyspneic at rest. Continue with current treatment regimen -08/20: Patient reports significantly improved. Was evaluated by pulmonology who recommended O2 3 to 5 L with exertion and no present antifibrotic agent. On d/c needs 6-minute walk test with oxygen titration with the pulmonary lab, overnight oximetry on 2 L/min with DASCO to be done within a month of discharge and will need to follow-up with pulmonology upon discharge as well. Patient comfortable with going home, will ambulate prior to DC to assess what O2 requirement he has 2. Coronary artery disease ? With previous history of CABG 3. Hypertension - Blood pressure controlled, home medications continued with dose adjustment as needed 4. Paroxysmal A-fib/flutter ? Rate controlled patient was previously on systemic anticoagulation and had to be taken off not sure of the reasons 5. Carotid artery disease ? With history of right CEA in 2017 and left carotid stenting in 2003 6. Dyslipidemia -Patient is on statin therapy, continued at home dose 7. Chronic congestive heart failure with preserved ejection fraction ? Patient is on diuretic therapy did continue ? 07/19/2022 held patient diuretic therapy given his worsening kidney function 8. Acute kidney injury on chronic kidney stage IIIb ? Superimposed on chronic kidney disease stage III patient diuretic therapy held started on gentle IV fluids repeat labs ordered for a.m. -08/20: Renal ultrasound without any overt abnormality, creatinine 2.5 yesterday improved to 2.16 today. Home lisinopril held 9. Hyperkalemia-resolved ? Secondary to worsening kidney function as well as patient being on ELEAZAR inhibitors his lisinopril was discontinued given Kayexalate repeat labs ordered for monitoring -08/20: Resolved 10. Obstructive sleep apnea ? On O2 at night 11. Hemoptysis -Resolved, pulmonology evaluated -Recommended rechecking H&H in a week to assure stability Medications at Discharge Home Medications aspirin 81 mg chewable tablet 81 mg PO DAILY Heart 08/03/19 multivitamin with minerals 1 tab PO DAILY supplement 08/03/19 ferrous sulfate 325 mg (65 mg iron) tablet (Feosol) 325 mg PO BID supplement 04/12/20 ascorbate calcium (vitamin C) 500 mg tablet 500 mg PO DAILY Check with primary doctor 09/28/20 atorvastatin 80 mg tablet 80 mg PO DAILY cholesterol lowering #90 tabs 11/30/21 ezetimibe 10 mg tablet 10 mg PO DAILY cholesterol #90 tabs 11/30/21 lisinopril 40 mg tablet 40 mg PO DAILY Check with primary doctor 08/14/22 mecobalamin (vitamin B12) 10,000 mcg solution for injection 10,000 mcg IM QMONTH Check with primary doctor 08/14/22 nitroglycerin 0.4 mg sublingual tablet 0.4 mg sublingual PRN PRN Angina #25 tabs 08/14/22 amlodipine 10 mg tablet 10 mg PO DAILY Check with primary doctor 08/17/22 bumetanide 1 mg tablet 1 mg PO DAILY Check with primary doctor 08/17/22 carvedilol 25 mg tablet 25 mg PO BID Check with primary doctor 08/17/22 doxazosin 4 mg tablet 4 mg PO QHS Check with primary doctor 08/17/22 hydralazine 100 mg tablet 100 mg PO TID Check with primary doctor 08/17/22 sertraline 50 mg tablet 50 mg PO DAILY Check with primary doctor 08/17/22 Hospital Course Summary of Care Provided Minutes Spent on Discharge: 40 Hospital Course: 77-year-old male with pulmonary fibrosis, sleep apnea not using CPAP as he did not tolerate so using home O2 nightly, CKD stage IIIb, history of chronic diastolic heart failure, CVA, GERD presented to [facility] 08/17/2022 with increased shortness of breath. 6 weeks prior to presentation he had a walk test and denied any desats, presently follows with [facility] pulmonology. Over the 3 days prior to presentation had increasing shortness of breath and was found to have O2 sat of 78% in the ED and had reported several episodes of blood streaked in his sputum. He was deemed that his hypoxia was secondary to his pulmonary fibrosis and he was evaluated by pulmonology who recommended O2 3 to 5 L with exertion and no present antifibrotic agent. On d/c needs 6-minute walk test with oxygen titration with the pulmonary lab, overnight oximetry on 2 L/min with DASCO to be done within a month of discharge and will need to follow-up with pulmonology upon discharge as well. This was communicated to patient and family member at bedside as this is not done through our facility now that he follows with him in clinic but he verbalized his understanding of calling upon discharge regarding to follow-up. His hospital course was complicated by hyperkalemia and BRAYDON on CKD, creatinine bumped up to 2.5 and improved to 2.16 on day of discharge, patient eating and drinking well and reported urinating well. His lisinopril was discontinued due to his kidney function and hyperkalemia so did have elevated blood pressures however on multiple other agents and suspect that this is multifactorial. Given he is asymptomatic do not feel he needs to remain in the hospital for this. On day of discharge he reports his breathing is much improved and is agreeable to wearing O2 during the day as well as at night and monitoring his O2 sat. discharge instructions as follows: DISCHARGE INSTRUCTIONS PLEASE READ *Please take this with you to your next doctors appointment* -Please follow-up with your database coordinator upon discharge.? Please call their office to schedule hospital follow-up appointment upon discharge. -You will need a 6-minute walk test with oxygen titration with the pulmonary lab and an overnight oximetry test on 2 L of oxygen with [place] within a month of discharge.? This will need to be coordinated through your pulmonary office -Would recommend lab work (hemoglobin) to check your blood counts in 7 days through your primary care physician's office or pulmonology office due to your recent episode of streaks of blood when he coughed.? Please call their office upon discharge to obtain order for lab work. -Would recommend lab work (BMP) to check your kidney function and potassium in 2 to 3 days through your primary care physician's office.? Please call their office upon discharge to obtain order for lab work. -You are restarted on your bumetanide which is your water pill given your improvement in kidney function so will be important that you have the lab work done.? Your lisinopril remains on hold however until after your lab work and you discuss with your primary care physician to avoid worsening of kidney function or potassium -Weigh yourself every day. A sudden weight gain can mean you are retaining fluid. Weigh yourself at the same time of day and in the same kind of clothes. Ideally, weigh yourself first thing in the morning after you empty your bladder, but before you eat breakfast. -Please call your physician if your weight goes up by more than 2 pounds in 1 day or 5 pounds in 1 week. This can be a sign that you are retaining more fluid than you should be. -Please call your primary care provider's office upon discharge to schedule a hospital follow up within 1 week. -For any concerning signs or symptoms please call 911 or proceed to the nearest emergency department Physical Exam Narrative General: Alert, oriented, no apparent distress HEENT: Atraumatic, normocephalic Eyes: Anicteric, normal conjunctiva, extraocular movements grossly intact Neck: Supple Respiratory: Standing up at window without conversational dyspnea, O2 in place, fine crackles without any rhonchi or wheezes Cardiovascular: Regular rate and rhythm GI: Soft, nontender, nondistended Extremities: No edema Musculoskeletal: Moving all extremities Neuro: No overt focal neurological deficits Skin: No rashes appreciated Psych: Cooperative Weight / BMI Weight Weight: 72.7 kg Body Mass Index (BMI) 24.3 ABG / Lab / Microbiology Data Result Diagrams: 08/17/22 15:48 08/20/22 05:55 Laboratory: Laboratory Results - last 24 hr 08/19/22 15:52: Sodium 142, Potassium 4.3, Chloride 113 H, Carbon Dioxide 20.0 L, Anion Gap 9, BUN 77 H, Creatinine 2.50 H, Estim Creat Clear Calc 23.94, Est GFR (MDRD) Af Amer 32 L, Est GFR (MDRD) Non-Af 27 L, BUN/Creatinine Ratio 30.8 H, Glucose 149 H, Calcium 8.5 08/20/22 05:55: Sodium 140, Potassium 4.4, Chloride 113 H, Carbon Dioxide 20.0 L, Anion Gap 7, BUN 75 H, Creatinine 2.16 H, Estim Creat Clear Calc 27.71, Est GFR (MDRD) Af Amer 38 L, Est GFR (MDRD) Non-Af 32 L, BUN/Creatinine Ratio 34.7 H, Glucose 93, Calcium 8.0 L Radiography Diagnostic Testing: Radiology Impression Renal Ultrasound 08/20/22 07:00 IMPRESSION: No suspicious sonographic findings, simple right renal cyst, nonobstructing right renal stone, no specific follow-up needed Electronically Signed: Rachid Zelaya MD at 9:15 EDT Reading Location ID and State: [facility] / [place] , Service support , D/C Instructions Discharge Diet: - (-DASH diet, 3000 mg sodium restriction, 2 L fluid restriction) Meaningful Use Info Meaningful Use Diagnoses (Choose all that apply): None applicable Discharge Plan Admission Admit Date/Time: 08/17/22 20:25 Primary Reason for Your Visit: Shortness of breath Attending Provider: Emilee Song Primary Care Provider: Virginie Lockhart Consulting Providers: Simón Mo ; Ian Rogers ; Jeffrey Salas ; David Sandoval ; Aviva Hilario NP ; Alexsander Kinsey ; Simón Batres Instructions Patient Instructions: Shortness of Breath Coping, ED Dyspnea Additional Instructions / Restrictions: DISCHARGE INSTRUCTIONS PLEASE READ *Please take this with you to your next doctors appointment* -Please follow-up with your database coordinator upon discharge. Please call their office to schedule hospital follow-up appointment upon discharge. -You will need a 6-minute walk test with oxygen titration with the pulmonary lab and an overnight oximetry test on 2 L of oxygen with [place] within a month of discharge. This will need to be coordinated through your pulmonary office -Would recommend lab work (hemoglobin) to check your blood counts in 7 days through your primary care physician's office or pulmonology office due to your recent episode of streaks of blood when he coughed. Please call their office upon discharge to obtain order for lab work. -Would recommend lab work (BMP) to check your kidney function and potassium in 2 to 3 days through your primary care physician's office. Please call their office upon discharge to obtain order for lab work. -You are restarted on your bumetanide which is your water pill given your improvement in kidney function so will be important that you have the lab work done. Your lisinopril remains on hold however until after your lab work and you discuss with your primary care physician to avoid worsening of kidney function or potassium -Weigh yourself every day. A sudden weight gain can mean you are retaining fluid. Weigh yourself at the same time of day and in the same kind of clothes. Ideally, weigh yourself first thing in the morning after you empty your bladder, but before you eat breakfast. -Please call your physician if your weight goes up by more than 2 pounds in 1 day or 5 pounds in 1 week. This can be a sign that you are retaining more fluid than you should be. -Please call your primary care provider's office upon discharge to schedule a hospital follow up within 1 week. -For any concerning signs or symptoms please call 911 or proceed to the nearest emergency department Discharge Orders/Prescriptions Prescriptions: Continued ferrous sulfate [Feosol] 325 mg (65 mg iron) tablet 325 mg PO BID ascorbate calcium (vitamin C) 500 mg tablet 500 mg PO DAILY mecobalamin (vitamin B12) 10,000 mcg recon soln 10,000 mcg IM QMONTH nitroglycerin 0.4 mg tablet, sublingual 0.4 mg SL PRN PRN (Reason: Angina) Qty: 25 3RF multivitamin with minerals 1 EACH tablet 1 tab PO DAILY aspirin 81 MG tablet,chewable 81 mg PO DAILY amlodipine 10 mg tablet 10 mg PO DAILY hydralazine 100 mg tablet 100 mg PO TID doxazosin 4 mg tablet 4 mg PO QHS carvedilol 25 mg tablet 25 mg PO BID bumetanide 1 mg tablet 1 mg PO DAILY sertraline 50 mg tablet 50 mg PO DAILY atorvastatin 80 mg tablet 80 mg PO DAILY Qty: 90 3RF ezetimibe 10 mg tablet 10 mg PO DAILY Qty: 90 3RF Held lisinopril 40 mg tablet 40 mg PO DAILY Hold Instructions: Resume on 08/29/22. Hold until after your lab work is rechecked and you have discussed with your primary care physician Referrals / Follow Up: [facility], pulmonology [Other] - Within 1 Week ( -Please follow-up with your database coordinator upon discharge. Please call their office to schedule hospital follow-up appointment upon discharge.) Virginie Lockhart MD [Primary Care Provider] - Within 1 Week Disposition Disposition (needs filled in before D/C Order can be placed): Home, Self Care Charges/Coding Visit Charges Inpatient E&M: 19307 Disch Hosp >30min
--- NOTE | 2022-08-20 13:29 | CASEMGMT ---
JEROD CM into pt room, pt and present. Pt aware he needs 2L of oxyen with exertion in addition to his 2L at HS. Pt states he does have a concentrator at home. Verified with [place] [facility] New rx sent via [facility] to [facility] at this time. Pt denies any further homegoing needs. Pt to be dc'd with [facility].
--- NOTE | 2022-08-20 13:46 | PHA.DC.MR ---
Pharmacy Service has performed discharge medication reconciliation for this patient. The patient's discharge medication list was reviewed for discrepancies and discrepancies were resolved. Home Medications aspirin 81 mg chewable tablet 81 mg PO DAILY Heart 08/03/19 multivitamin with minerals 1 tab PO DAILY supplement 08/03/19 ferrous sulfate 325 mg (65 mg iron) tablet (Feosol) 325 mg PO BID supplement 04/12/20 ascorbate calcium (vitamin C) 500 mg tablet 500 mg PO DAILY Check with primary doctor 09/28/20 atorvastatin 80 mg tablet 80 mg PO DAILY cholesterol lowering #90 tabs 11/30/21 ezetimibe 10 mg tablet 10 mg PO DAILY cholesterol #90 tabs 11/30/21 lisinopril 40 mg tablet 40 mg PO DAILY Check with primary doctor 08/14/22 mecobalamin (vitamin B12) 10,000 mcg solution for injection 10,000 mcg IM QMONTH Check with primary doctor 08/14/22 nitroglycerin 0.4 mg sublingual tablet 0.4 mg sublingual PRN PRN Angina #25 tabs 08/14/22 amlodipine 10 mg tablet 10 mg PO DAILY Check with primary doctor 08/17/22 bumetanide 1 mg tablet 1 mg PO DAILY Check with primary doctor 08/17/22 carvedilol 25 mg tablet 25 mg PO BID Check with primary doctor 08/17/22 doxazosin 4 mg tablet 4 mg PO QHS Check with primary doctor 08/17/22 hydralazine 100 mg tablet 100 mg PO TID Check with primary doctor 08/17/22 sertraline 50 mg tablet 50 mg PO DAILY Check with primary doctor 08/17/22
== END 2022-08-20 14:36 | disposition home or self-care (01) | DRG 197 ==
LOC: ED 18:41 → MS3 20:48
PROVIDERS: Internal Medicine; Admitting Provider Hospitalist; Emergency Provider Emergency Medicine; PCP Internal Medicine; Visit Provider Internal Medicine
DX: J84.112 Idiopathic pulmonary fibrosis (principal); J96.11 Chronic respiratory failure with hypoxia; I13.0 Hypertensive heart and chronic kidney disease with heart failure and stage 1 through stage 4 chronic kidney disease, or unspecified chronic kidney disease; I48.92 Unspecified atrial flutter; N17.9 Acute kidney failure, unspecified; I50.32 Chronic diastolic (congestive) heart failure; R04.2 Hemoptysis; D63.1 Anemia in chronic kidney disease; I48.0 Paroxysmal atrial fibrillation; N18.32 Chronic kidney disease, stage 3b; E87.5 Hyperkalemia; I25.10 Atherosclerotic heart disease of native coronary artery without angina pectoris; E78.5 Hyperlipidemia, unspecified; G47.33 Obstructive sleep apnea (adult) (pediatric); Z95.1 Presence of aortocoronary bypass graft; Z57.5 Occupational exposure to toxic agents in other industries; Z99.81 Dependence on supplemental oxygen; Z79.82 Long term (current) use of aspirin; Z79.899 Other long term (current) drug therapy; Z86.73 Personal history of transient ischemic attack (TIA), and cerebral infarction without residual deficits; Z87.891 Personal history of nicotine dependence
CPT/HCPCS: 36415; 71045; 71275; 76770; 80048; 83605; 83880; 84484; 85025; 85379; 87040; 93005; 94640; 94667; 94668; 94762; 99285; J7040; Q9967; A4216

== ENCOUNTER → 2022-08-28 | Outpatient (CLI) | payer MEDICARE, OTHER, SELFPAY ==
[2022-08-28 12:45] LABS: Absolute Lymphocyte Count 1.31 X10^3/uL (0.83-4.51); Absolute Neutrophil Count 8.7 X10^3/uL (2.0-7.7); Basophil# 0.07 X10^3/uL; Basophil% 0.6 % (0-1); Eosinophils% 3.5 % (0-5); Hematocrit 32.5 % (40-54); Hemoglobin 10.1 g/dL (13.0-16.5); Lymphocyte # 1.31 X10^3/ul (0.83-4.51); Lymphocyte % 11.5 % (19-41); Mean Corp Hgb Conc 31.1 g/dL (32-36); Mean Corpuscular Hgb 29.4 pg (27.0-32.0); Mean Corpuscular Volume 94.8 fL (80-94); Mean Platelet Vol. 10.6 fl (6.2-12.0); Monocyte# 0.81 X10^3/uL; Monocyte% 7.1 % (0-10); NRBC Flagged by Analyzer 0 % (0-5); Neutrophil # 8.69 X10^3/uL (2.7-7.7); Neutrophil % 76.4 % (47-70); Platelet Count 234 K/mm3 (150-450); RBC Distribution Width CV 14.9 % (11.6-14.6); RBC Distribution Width SD 51.4 fl (35.1-43.9); Red Blood Count 3.43 M/mm3 (4.6-6.2); White Blood Count 11.4 K/mm3 (4.4-11.0)
[2022-08-28 14:16] LABS: ALB/GLOB Ratio 0.7 RATIO (0.9-2.4); AST(SGOT) 12 U/L (15-37); Alanine Aminotransfer ALT/SGPT 29 U/L (16-61); Albumin, Serum 3.1 g/dL (3.2-5.0); Alkaline Phosphatase 85 U/L (45-117); Anion Gap 8 (5-15); BUN 50 mg/dL (7-18); Bilirubin, Direct 0.18 mg/dL (0.00-0.30); Calcium,Total 8.9 mg/dL (8.5-10.1); Chloride 117 mmol/L (98-107); Cholesterol 130 mg/dL (200); Creatinine, Serum 1.92 mg/dL (0.70-1.30); EST Glomerular Filtration Rate 36 mL/min (>60); Est Glom Filt Rate - Afr Amer 44 mL/min (>60); Globulin 4.3 g/dL (2.2-4.2); Glucose 108 mg/dL (74-106); High Density Lipoprotein 43 mg/dL; Potassium 5.3 mmol/L (3.5-5.1); Protein, Total 7.4 g/dL (6.4-8.2); Sodium Level 143 mmol/L (136-145); Triglycerides 78 mg/dL; Very Low Density Lipoprotein 16 mg/dL (5-40)
== END | disposition home or self-care (01) ==
LOC: BIMLAB 10:37
PROVIDERS: PCP Internal Medicine; Referring Provider Internal Medicine; Visit Provider Internal Medicine
DX: J96.21 Acute and chronic respiratory failure with hypoxia (principal); I50.32 Chronic diastolic (congestive) heart failure; E78.5 Hyperlipidemia, unspecified
CPT/HCPCS: 36415; 80053; 80061; 82248; 85025

== ENCOUNTER → 2022-08-31 | Outpatient (CLI) | payer MEDICARE, OTHER, SELFPAY ==
[2022-08-31 13:01] LABS: Anion Gap 8 (5-15); BUN 57 mg/dL (7-18); BUN/Creat Ratio 26.4 RATIO (10-20); Calcium,Total 8.6 mg/dL (8.5-10.1); Chloride 111 mmol/L (98-107); Creatinine, Serum 2.16 mg/dL (0.70-1.30); EST Glomerular Filtration Rate 32 mL/min (>60); Est Glom Filt Rate - Afr Amer 38 mL/min (>60); Glucose 102 mg/dL (74-106); Potassium 4.9 mmol/L (3.5-5.1); Sodium Level 139 mmol/L (136-145)
== END | disposition home or self-care (01) ==
LOC: BIMLAB 09:32
PROVIDERS: PCP Internal Medicine; Referring Provider Nurse Practitioner Family; Visit Provider Nurse Practitioner Family
DX: I10 Essential (primary) hypertension (principal)
CPT/HCPCS: 36415; 80048

== ENCOUNTER 2022-09-22 20:18 | Inpatient (IN) | payer MEDICARE, OTHER, SELFPAY ==
[2022-09-22] VITALS (8 sets, daily range): BP systolic 157–183; BP diastolic 53–86; PULSE 67–82; RESP 18–26; TEMP 36.3–36.5; O2SAT 85–95; BMI 24.7; BMI 23.8
--- NOTE | 2022-09-22 20:38 | EKG12_ITS ---
Test Reason : SOB Blood Pressure : / mmHG Vent. Rate : 076 BPM Atrial Rate : 076 BPM P-R Int : 206 ms QRS Dur : 104 ms QT Int : 434 ms P-R-T Axes : 107 048 141 degrees QTc Int : 488 ms Sinus rhythm with occasional Premature ventricular complexes Left ventricular hypertrophy with repolarization abnormality ( Sokolow-Connolly , [place] product ) Prolonged QT Abnormal ECG Confirmed by KAYODE DIAZ, SUNG ([id number]), assistant production editor FUENTES MUELLER ([id number]) on 09/24/2022 12:35:25 PM Referred By: [place] Confirmed By:SUNG HEADLEY MD
--- NOTE | 2022-09-22 20:43 | EDS_ITS ---
HPI <ELVIN Amador - Last Filed: 09/22/22 20:56> History of Present Illness Chief Complaint: Shortness of Breath Narrative Narrative: Patient presenting due to worsening shortness of breath that he has had over the past week. His reports that he normally uses 2 to 3 L O2 at home at all times but over the past week has been using 4 to 5 L O2. Patient has a PMH of pulmonary fibrosis and CHF. Patient feels much more short of breath on exertion and reports that is when his oxygen saturation seems to drop, even with just walking to the bathroom. reports that he has been spitting up a lot of phlegm today and was complaining of some generalized abdominal pain. He denies any current abdominal pain, nausea, or vomiting. Patient denies any history of blood clots and has had no recent surgeries or procedures, travel, or immobilization. Patient was last admitted in August 2022 for similar symptoms and reports that since then he never seemed bounce back to normal. He has not noticed any edema in his legs and does take a diuretic. He denies any history of COPD. PFSH <ELVIN Amador - Last Filed: 09/22/22 20:56> [facility] Medical History Anemia in chronic kidney disease (CKD) Arthritis Arthritis Atherosclerosis of coronary artery of [place] heart without angina pectoris Bilateral carotid artery stenosis Chronic cough Chronic diastolic (congestive) heart failure Chronic kidney disease, stage 3 CVA (cerebral vascular accident) Diarrhea Diverticulitis Elevated troponin (04/07/19) Essential (primary) hypertension Flu vaccine need Generalized anxiety disorder GERD (gastroesophageal reflux disease) Gout Hemoptysis Hyperlipidemia Hypoxia Increased sputum production Interstitial lung disease FRANCISCO JAVIER (obstructive sleep apnea) Paroxysmal atrial flutter Peripheral vascular occlusive disease Pleural effusion due to CHF (congestive heart failure) (08/27/19) PND (post-nasal drip) Renal artery stenosis Secondary pulmonary arterial hypertension Stage III chronic kidney disease Stenosis of left subclavian artery Transient ischemic attack Varicose veins of both lower extremities Home Medications aspirin 81 mg chewable tablet 81 mg PO DAILY Heart 08/03/19 [History Last Taken 08/24/19] multivitamin with minerals 1 tab PO DAILY supplement 08/03/19 [History Last Taken 08/24/19] ferrous sulfate 325 mg (65 mg iron) tablet (Feosol) 325 mg PO BID supplement 04/12/20 [History Last Taken Unknown] ascorbate calcium (vitamin C) 500 mg tablet 500 mg PO DAILY Check with primary doctor 09/28/20 [History Last Taken Unknown] atorvastatin 80 mg tablet 80 mg PO DAILY cholesterol lowering #90 tabs 11/30/21 [Rx Last Taken Unknown] ezetimibe 10 mg tablet 10 mg PO DAILY cholesterol #90 tabs 11/30/21 [Rx Last Taken Unknown] mecobalamin (vitamin B12) 10,000 mcg solution for injection 10,000 mcg IM QMONTH Check with primary doctor 08/14/22 [History Last Taken Unknown] nitroglycerin 0.4 mg sublingual tablet 0.4 mg sublingual PRN PRN Angina #25 tabs 08/14/22 [Rx Last Taken Unknown] amlodipine 10 mg tablet 10 mg PO DAILY Check with primary doctor 08/17/22 [History Last Taken Unknown] bumetanide 1 mg tablet 1 mg PO DAILY Check with primary doctor 08/17/22 [History Last Taken Unknown] carvedilol 25 mg tablet 25 mg PO BID Check with primary doctor 08/17/22 [History Last Taken Unknown] doxazosin 4 mg tablet 4 mg PO QHS Check with primary doctor 08/17/22 [History Last Taken Unknown] sertraline 50 mg tablet 50 mg PO DAILY Check with primary doctor 08/17/22 [History Last Taken Unknown] hydralazine 100 mg tablet 100 mg PO TID 90 days #270 tabs 09/02/22 [Rx Last Taken Unknown] Allergy/AdvReac Type Severity Reaction Status Date / Time No Known Allergies Allergy Verified 09/12/22 11:05 Family History Son CAD (coronary artery disease) Brother CAD (coronary artery disease) Diabetes Brother CAD (coronary artery disease) Diabetes Other Anemia Arthritis CVA (cerebral vascular accident) Hyperlipemia Hypertension Kidney disease Skin cancer Surgical History H/O basal cell carcinoma excision (09/2018) H/O colonoscopy H/O coronary artery bypass surgery (08/14/12) History of angioplasty of peripheral vessel History of herniorrhaphy History of knee replacement History of left common carotid artery stent placement (2003) History of left heart catheterization (08/13/12) History of right-sided carotid endarterectomy (05/2016) History of stent insertion of renal artery (10/01/19) Social History Smoking Status: Former smoker Tobacco: How many years used: 15 how long ago did patient quit smokin second hand exposure: No alcohol intake: current alcohol intake frequency: holidays/special occasions only substance use type: does not use caffeine: Yes ROS <ELVIN Amador - Last Filed: 09/22/22 20:56> ROS ED Constitutional Constitutional ED: Denies chills or fever(s) Cardiovascular Cardiovascular: Denies chest pain or palpitations Respiratory/Chest Respiratory/Chest: Reports dyspnea and dyspnea on exertion; Denies cough, tachypnea or wheezing Gastrointestinal Gastrointestinal: Denies abdominal pain, nausea or vomiting Genitourinary Genitourinary ED: Denies dysuria, hematuria or urinary urgency Musculoskeletal Musculoskeletal: Denies arthralgias or myalgias Integumentary Denies abscess, Abrasions or rash Neurologic Neurologic: Denies confusion, dizziness or weakness EXAM <ELVIN Amador - Last Filed: 09/22/22 20:56> Physical Exam Const Vital Signs: 09/22/22 20:19 09/22/22 20:35 09/22/22 21:16 Temperature 97.5 F L Temperature Source Temporal Pulse Rate 82 80 Respiratory Rate 24 H 22 H Respiratory Effort Short of Breath Respiratory Depth Normal Respiratory Pattern Tachypnea Tachypnea Blood Pressure 171/53 H Blood Pressure Mean 92 Pulse Ox 85 Oxygen Delivery Method Nasal Cannula Nasal Cannula Oxygen Flow Rate (L/min) 5 6 Fraction of Inspired Oxygen (FIO2) 09/22/22 21:34 09/22/22 22:00 09/22/22 22:20 Temperature 97.7 F L Temperature Source Temporal Pulse Rate 67 Respiratory Rate 26 H Respiratory Effort Respiratory Depth Respiratory Pattern Blood Pressure 162/58 H Blood Pressure Mean 92 Pulse Ox 95 90 85 Oxygen Delivery Method Venturi Mask Venturi Mask Venturi Mask Oxygen Flow Rate (L/min) 12 8 8 Fraction of Inspired Oxygen (FIO2) 40 40 Positive well nourished, well developed and no apparent distress General Appearance ED: well developed HEENT Reports normocephalic and head/scalp atraumatic Mouth ED: Yes moist mucous membranes normal Eyes PERRL and EOMs intact bilaterally Neck full ROM and supple Chest Wall inspection of chest normal Resp Resp Narrative: Tachypnea, faint crackles at the lung bases bilaterally. Cardio regular rate and regular rhythm GI soft to palpation, non-tender, non-distended and no masses Back/Spine normal ROM and normal to inspection Extremity normal to inspection and full ROM Neuro oriented x3, CN's II-XII intact bilaterally, moves all extremities, no focal motor deficits and no sensory deficits noted Sensorium / Orientation: awake and alert Psych mental status grossly normal and thought process normal Skin no rashes or lesions noted and no wounds <Dr. Jm Warner MD - Last Filed: 09/22/22 22:35> Physical Exam Const Vital Signs: 09/22/22 20:19 09/22/22 20:35 09/22/22 21:16 Temperature 97.5 F L Temperature Source Temporal Pulse Rate 82 80 Respiratory Rate 24 H 22 H Respiratory Effort Short of Breath Respiratory Depth Normal Respiratory Pattern Tachypnea Tachypnea Blood Pressure 171/53 H Blood Pressure Mean 92 Pulse Ox 85 Oxygen Delivery Method Nasal Cannula Nasal Cannula Oxygen Flow Rate (L/min) 5 6 Fraction of Inspired Oxygen (FIO2) 09/22/22 21:34 09/22/22 22:00 09/22/22 22:20 Temperature 97.7 F L Temperature Source Temporal Pulse Rate 67 Respiratory Rate 26 H Respiratory Effort Respiratory Depth Respiratory Pattern Blood Pressure 162/58 H Blood Pressure Mean 92 Pulse Ox 95 90 85 Oxygen Delivery Method Venturi Mask Venturi Mask Venturi Mask Oxygen Flow Rate (L/min) 12 8 8 Fraction of Inspired Oxygen (FIO2) 40 40 MDM <ELVIN Amador - Last Filed: 09/22/22 20:56> [facility] Narrative Medical decision making narrative: Patient presenting due to shortness of breath both at rest and on exertion that has been getting worse over the past week. Has a history of pulmonary fibrosis and CHF. He does not have any peripheral edema on examination. Patient was 77% on 5 L out in triage. He normally uses 2 to 3 L O2 at home but over this past week has been using 4-5L O2. Patient was admitted in August for similar presentation but reports that he feels worse now than he did at that time. Labs will be obtained to rule out leukocytosis, anemia, electrolyte abnormality, ACS. Chest x-ray will be obtained to rule out infiltrate, pleural effusion, and other cardiopulmonary abnormality. He has been given IV Solu-Medrol and a DuoNeb and albuterol breathing treatment. Lab Data Labs: Laboratory Results - last 24 hr 09/22/22 20:40 WBC 13.8 H RBC 3.47 L Hgb 10.0 L Hct 32.0 L MCV 92.2 MCH 28.8 MCHC 31.3 L RDW Std Deviation 50.1 H RDW Coeff of Lisa 15.0 H Plt Count 219 MPV 9.9 Immature Gran % (Auto) 1.000 H Neut % (Auto) 86.5 H Lymph % (Auto) 5.9 L Zapata % (Auto) 5.7 Eos % (Auto) 0.5 Baso % (Auto) 0.4 Absolute Neuts (auto) 12.0 H Absolute Lymphs (auto) 0.81 L Nucleated RBC % 0 Sodium 136 Potassium 4.7 Chloride 106 Carbon Dioxide 23.0 Anion Gap 7 BUN 40 H Creatinine 1.85 H Estim Creat Clear Calc 32.35 Est GFR (MDRD) Af Amer 46 L Est GFR (MDRD) Non-Af 38 L BUN/Creatinine Ratio 21.6 H Glucose 149 H Calcium 8.6 Troponin I High Sens 49 B-Natriuretic Peptide 1811.7 H Radiography Diagnostic Testing: Clinical Impression(s) from Imaging Studies Chest X-Ray 09/22/22 20:50 IMPRESSION: Interstitial prominence suggesting pulmonary edema. This may be superimposed on chronic lung disease. Question small effusions. Electronically Signed: Toni Perez MD at 21:05 EDT , EKG Initial EKG: Comments: 76 bpm, sinus rhythm with occasional PVCs, left ventricular hypertrophy, no ST elevation, reviewed and interpreted by attending ED physician <Dr. Jm Warner MD - Last Filed: 09/22/22 22:35> [facility] MDM Narrative Medical decision making narrative: Patient presenting due to shortness of breath both at rest and on exertion that has been getting worse over the past week. Has a history of pulmonary fibrosis and CHF. He does not have any peripheral edema on examination. Patient was 77% on 5 L out in triage. He normally uses 2 to 3 L O2 at home but over this past week has been using 4-5L O2. Patient was admitted in August for similar presentation but reports that he feels worse now than he did at that time. Labs will be obtained to rule out leukocytosis, anemia, electrolyte abnormality, ACS. Chest x-ray will be obtained to rule out infiltrate, pleural effusion, and other cardiopulmonary abnormality. He has been given IV Solu-Medrol and a DuoNeb and albuterol breathing treatment. I have personally performed a face to face assessment of the patient and have reviewed the FOREST Note. I performed a substantive portion of the visit including all aspects of the following. 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 History of CHF and pulmonary fibrosis. Over the last week or so he has had increasing shortness of breath. Typically is on 2 to 3 L of oxygen and is now on 5 L. Cough that is chronic. No fever. No significant chest pain. No history of DVT or PE or risk factors. Recent CTA showed no PE. Exam is [77-year-old male vital signs are stable other than a pulse ox of 85% in triage on 5 L. Typically is on 2. HEENT exam unremarkable. Neck nontender no JVD. Lungs coarse breath sounds. Prolonged expiratory phase. Few scattered wheezes. No significant rales or rhonchi. Heart regular rhythm rate about 80 no murmur. Chest were nontender. Abdomen soft nontender. Moving all 4 extremities. Calves are nontender without edema or cords.] Medical Decision Making [77-year-old male with history of pulmonary fibrosis and CHF. Will be evaluated for both cardiac and pulmonary etiologies. He will be given IV Solu-Medrol and aerosol treatments to try to improve his breathing status. Most likely will need admission.] Other additions or changes: [None] Repeat exam at 10:30 PM patient has shown some improvement with aerosols and steroids. He will be given IV Lasix 40 mg for the pulmonary edema. I discussed the test results with both he and his . He will be admitted and the hospitalist will see him in the emergency department. I suspect that he has both a flare of his CHF with pulmonary edema and exacerbation of his underlying pulmonary fibrosis. History & Record Review Discussion w/independent historian: Patient and Family Additional record(s) reviewed:: Prior inpatient record, Prior outpatient record, Prior ED visit and Prior labs Lab Data Attestation: I reviewed the patient's lab results. Lab results narrative: CBC shows a white count of 13.8. H&H of 10 and 32 which is his baseline anemia. Platelets 219. Chemistries unremarkable gap of 7. BUN of 40 creatinine 1.5 is a history of renal insufficiency. Glucose 149. Troponin normal at 49. BNP elevated at 1811. Labs: Laboratory Results - last 24 hr 09/22/22 20:40 WBC 13.8 H RBC 3.47 L Hgb 10.0 L Hct 32.0 L MCV 92.2 MCH 28.8 MCHC 31.3 L RDW Std Deviation 50.1 H RDW Coeff of Lisa 15.0 H Plt Count 219 MPV 9.9 Immature Gran % (Auto) 1.000 H Neut % (Auto) 86.5 H Lymph % (Auto) 5.9 L Zapata % (Auto) 5.7 Eos % (Auto) 0.5 Baso % (Auto) 0.4 Absolute Neuts (auto) 12.0 H Absolute Lymphs (auto) 0.81 L Nucleated RBC % 0 Sodium 136 Potassium 4.7 Chloride 106 Carbon Dioxide 23.0 Anion Gap 7 BUN 40 H Creatinine 1.85 H Estim Creat Clear Calc 32.35 Est GFR (MDRD) Af Amer 46 L Est GFR (MDRD) Non-Af 38 L BUN/Creatinine Ratio 21.6 H Glucose 149 H Calcium 8.6 Troponin I High Sens 49 B-Natriuretic Peptide 1811.7 H Radiography Chest X-Ray - ED: 2 View, Read by ED Physician, Chronic Changes and CHF Diagnostic Testing: Clinical Impression(s) from Imaging Studies Chest X-Ray 09/22/22 20:50 IMPRESSION: Interstitial prominence suggesting pulmonary edema. This may be superimposed on chronic lung disease. Question small effusions. Electronically Signed: Toni Perez MD at 21:05 EDT , Chest x-ray, 2 views AP and lateral, interpreted by myself shows bilateral pleural effusions. Patchy interstitial lung disease which could be pleural effusions versus CHF versus infiltrates. Chronic changes consistent with pulmonary fibrosis. Significant change and worse compared to most recent chest x-rays. Rhythm Strip Rhythm Strip: Sinus Rhythm Rate: 76 Ectopy: PVC(s) EKG Initial EKG: Attestation: I personally reviewed and interpreted this EKG as follows: Interpretation: Sinus Rhythm and No Acute Injury Pattern Discharge Plan Dx/Rx/DC Orders Clinical Impression: Acute dyspnea, Pulmonary fibrosis, Hypoxia, CHF (congestive heart failure) Disposition Disposition: Acute Care Hospital [facility]
[2022-09-22 20:46] LABS: Absolute Lymphocyte Count 0.81 X10^3/uL (0.83-4.51); Basophil# 0.05 X10^3/uL; Basophil% 0.4 % (0-1); Eosinophil# 0.07 X10^3/uL; Eosinophils% 0.5 % (0-5); Lymphocyte # 0.81 X10^3/ul (0.83-4.51); Lymphocyte % 5.9 % (19-41); Mean Corp Hgb Conc 31.3 g/dL (32-36); Mean Corpuscular Hgb 28.8 pg (27.0-32.0); Mean Corpuscular Volume 92.2 fL (80-94); Mean Platelet Vol. 9.9 fl (6.2-12.0); Monocyte# 0.79 X10^3/uL; Monocyte% 5.7 % (0-10); NRBC Flagged by Analyzer 0 % (0-5); Neutrophil # 11.98 X10^3/uL (2.7-7.7); Neutrophil % 86.5 % (47-70); Platelet Count 219 K/mm3 (150-450); RBC Distribution Width SD 50.1 fl (35.1-43.9); Red Blood Count 3.47 M/mm3 (4.6-6.2); White Blood Count 13.8 K/mm3 (4.4-11.0)
--- NOTE | 2022-09-22 20:50 | RAD_ITS ---
INDICATION: shortness of breath EXAMINATION/TECHNIQUE: X-RAY - XR Chest 2 Views COMPARISON: August 17. FINDINGS: Median sternotomy. Abnormal prominence of the pulmonary interstitium in comparison to the prior study. New silhouetting of left hemidiaphragm. Blunting right CP angle and left CP angle. Prominent vascular pedicle. No subdiaphragmatic free air. No acute fracture identified. RAD/Chest PA and Lateral IMPRESSION: Interstitial prominence suggesting pulmonary edema. This may be superimposed on chronic lung disease. Question small effusions. Electronically Signed: Toni Perez MD at 21:05 EDT ,
[2022-09-22] MEDS: Albuterol 2.5 MG/3 ML VIAL.NEB. INHALATION (20:58)
[2022-09-22] MEDS: Ipratropium/Albuterol Sulfate 3 ML AMPUL.NEB INHALATION (20:58)
[2022-09-22 21:06] LABS: BNP,B-Type NATRIURETIC PEPTIDE 1811.7 pg/mL (0-100)
[2022-09-22 21:09] LABS: Anion Gap 7 (5-15); BUN 40 mg/dL (7-18); BUN/Creat Ratio 21.6 RATIO (10-20); Calcium,Total 8.6 mg/dL (8.5-10.1); Chloride 106 mmol/L (98-107); Creatinine, Serum 1.85 mg/dL (0.70-1.30); EST Glomerular Filtration Rate 38 mL/min (>60); Est Glom Filt Rate - Afr Amer 46 mL/min (>60); Estimated Creatinine Clearance 32.35 ml/min; Glucose 149 mg/dL (74-106); Potassium 4.7 mmol/L (3.5-5.1); Sodium Level 136 mmol/L (136-145); Troponin-I HS 49 pg/mL (3.0-78.0)
[2022-09-22] MEDS: MethylPREDNISolone 125 MG/2 ML Vial IV (21:13)
--- NOTE | 2022-09-22 22:32 | HP.PCM.HOS_ITS ---
HPI - General General Date of Admission: 09/22/22 Date of Service: 09/22/22 Chief Complaint: Dyspnea HPI Narrative EKTA CONWAY, is a 77 M with a significant history of interstitial lung disease and chronic diastolic heart failure on routine 3 L of nasal oxygen who presents to the emergency department with progressively worsening shortness of breath that has been going on for the past 1 months. Associated with his symptoms is cough and post nasal drop/reactive airway disease. Recently patient had increased his home oxygen to 5 L. On presenting to emergency department patient was found to have oxygen saturation of 85%. Patient was placed on a Venturi mask. Patient denies any weight changes. He denies any edema. He denies orthopnea. He denies proximal nocturnal dyspnea. [facility] Medical History Anemia in chronic kidney disease (CKD) Arthritis Arthritis Atherosclerosis of coronary artery of [place] heart without angina pectoris Bilateral carotid artery stenosis Chronic cough Chronic diastolic (congestive) heart failure Chronic kidney disease, stage 3 CVA (cerebral vascular accident) Diarrhea Diverticulitis Elevated troponin (04/07/19) Essential (primary) hypertension Flu vaccine need Generalized anxiety disorder GERD (gastroesophageal reflux disease) Gout Hemoptysis Hyperlipidemia Hypoxia Increased sputum production Interstitial lung disease FRANCISCO JAVIER (obstructive sleep apnea) Paroxysmal atrial flutter Peripheral vascular occlusive disease Pleural effusion due to CHF (congestive heart failure) (08/27/19) PND (post-nasal drip) Renal artery stenosis Secondary pulmonary arterial hypertension Stage III chronic kidney disease Stenosis of left subclavian artery Transient ischemic attack Varicose veins of both lower extremities Home Medications aspirin 81 mg chewable tablet 81 mg PO DAILY Heart 08/03/19 [History Last Taken 08/24/19] multivitamin with minerals 1 tab PO DAILY supplement 08/03/19 [History Last Taken 08/24/19] ferrous sulfate 325 mg (65 mg iron) tablet (Feosol) 325 mg PO BID supplement 04/12/20 [History Last Taken Unknown] ascorbate calcium (vitamin C) 500 mg tablet 500 mg PO DAILY Check with primary doctor 09/28/20 [History Last Taken Unknown] atorvastatin 80 mg tablet 80 mg PO DAILY cholesterol lowering #90 tabs 11/30/21 [Rx Last Taken Unknown] ezetimibe 10 mg tablet 10 mg PO DAILY cholesterol #90 tabs 11/30/21 [Rx Last Taken Unknown] mecobalamin (vitamin B12) 10,000 mcg solution for injection 10,000 mcg IM QMONTH Check with primary doctor 08/14/22 [History Last Taken Unknown] nitroglycerin 0.4 mg sublingual tablet 0.4 mg sublingual PRN PRN Angina #25 tabs 08/14/22 [Rx Last Taken Unknown] amlodipine 10 mg tablet 10 mg PO DAILY Check with primary doctor 08/17/22 [History Last Taken Unknown] bumetanide 1 mg tablet 1 mg PO DAILY Check with primary doctor 08/17/22 [History Last Taken Unknown] carvedilol 25 mg tablet 25 mg PO BID Check with primary doctor 08/17/22 [History Last Taken Unknown] doxazosin 4 mg tablet 4 mg PO QHS Check with primary doctor 08/17/22 [History Last Taken Unknown] sertraline 50 mg tablet 50 mg PO DAILY Check with primary doctor 08/17/22 [History Last Taken Unknown] hydralazine 100 mg tablet 100 mg PO TID 90 days #270 tabs 09/02/22 [Rx Last Taken Unknown] Allergy/AdvReac Type Severity Reaction Status Date / Time No Known Allergies Allergy Verified 09/12/22 11:05 Family History Son CAD (coronary artery disease) Brother CAD (coronary artery disease) Diabetes Brother CAD (coronary artery disease) Diabetes Other Anemia Arthritis CVA (cerebral vascular accident) Hyperlipemia Hypertension Kidney disease Skin cancer Surgical History H/O basal cell carcinoma excision (09/2018) H/O colonoscopy H/O coronary artery bypass surgery (08/14/12) History of angioplasty of peripheral vessel History of herniorrhaphy History of knee replacement History of left common carotid artery stent placement (2003) History of left heart catheterization (08/13/12) History of right-sided carotid endarterectomy (05/2016) History of stent insertion of renal artery (10/01/19) Social History Smoking Status: Former smoker Tobacco: How many years used: 15 how long ago did patient quit smokin second hand exposure: No alcohol intake: current alcohol intake frequency: holidays/special occasions only substance use type: does not use caffeine: Yes ROS ROS Narrative Pertinent positives and pertinent negatives as noted in HPI. All other systems were reviewed and are negative Vital Signs Vital Signs Vital Signs: 09/22/22 20:19 09/22/22 20:35 09/22/22 21:16 Temperature 97.5 F L Temperature Source Temporal Pulse Rate 82 80 Respiratory Rate 24 H 22 H Respiratory Effort Short of Breath Respiratory Depth Normal Respiratory Pattern Tachypnea Tachypnea Blood Pressure 171/53 H Blood Pressure Mean 92 Pulse Ox 85 Oxygen Delivery Method Nasal Cannula Nasal Cannula Oxygen Flow Rate (L/min) 5 6 Fraction of Inspired Oxygen (FIO2) 09/22/22 21:34 09/22/22 22:00 09/22/22 22:20 Temperature 97.7 F L Temperature Source Temporal Pulse Rate 67 Respiratory Rate 26 H Respiratory Effort Respiratory Depth Respiratory Pattern Blood Pressure 162/58 H Blood Pressure Mean 92 Pulse Ox 95 90 85 Oxygen Delivery Method Venturi Mask Venturi Mask Venturi Mask Oxygen Flow Rate (L/min) 12 8 8 Fraction of Inspired Oxygen (FIO2) 40 40 Weight Weight: 73.799 kg Body Mass Index (BMI) 24.7 Physical Exam Narrative Physical exam: General: Well-nourished, well-developed. Head: Normocephalic, atraumatic, no tenderness Eyes: Vision is grossly intact. EOMI ENT, no trauma, moist mucous membranes, no rhinorrhea Neck: Nontender, No thyromegaly. CVS: Regular rate and rhythm. S1-S2 present. No murmur, gallop or rub. Respiratory : Using extra muscles of respiration; tachypnea; audible wheezes; diminished respirations. Abdomen: Soft, nontender, nondistended, normal bowel sounds, no masses : Deferred Back: Nontender, no CVA tenderness Extremities: Nontender full range of motion, no trauma Skin: Normal color, no trauma, abrasions Neuro: Alert, oriented, cranial nerves II through XII grossly intact. Psychiatry: Normal mood. Normal affect. Not depressed. Not anxious. Results Lab / Micro Data 09/22/22 20:40 09/22/22 20:40 Labs: Laboratory Results - last 24 hr 09/22/22 20:40: WBC 13.8 H, RBC 3.47 L, Hgb 10.0 L, Hct 32.0 L, MCV 92.2, MCH 28.8, MCHC 31.3 L, RDW Std Deviation 50.1 H, RDW Coeff of Lisa 15.0 H, Plt Count 219, MPV 9.9, Immature Gran % (Auto) 1.000 H, Neut % (Auto) 86.5 H, Lymph % (Auto) 5.9 L, [place] % (Auto) 5.7, Eos % (Auto) 0.5, Baso % (Auto) 0.4, Absolute Neuts (auto) 12.0 H, Absolute Lymphs (auto) 0.81 L, Nucleated RBC % 0, Sodium 136, Potassium 4.7, Chloride 106, Carbon Dioxide 23.0, Anion Gap 7, BUN 40 H, Creatinine 1.85 H, Estim Creat Clear Calc 32.35, Est GFR (MDRD) Af Amer 46 L, Est GFR (MDRD) Non-Af 38 L, BUN/Creatinine Ratio 21.6 H, Glucose 149 H, Calcium 8.6, Troponin I High Sens 49, B-Natriuretic Peptide 1811.7 H Rhythm Strip Rhythm Strip: Sinus Rhythm Rate: 76 Ectopy: PVC(s) Radiology Impression Chest X-Ray 09/22/22 20:50 IMPRESSION: Interstitial prominence suggesting pulmonary edema. This may be superimposed on chronic lung disease. Question small effusions. Electronically Signed: Toni Perez MD at 21:05 EDT Reading Location ID and State: [address] [place] [address] Tel , Service support , Assessment & Plan Assessment/Plan (1) CHF (congestive heart failure): QUALIFIERS: Heart failure chronicity: acute on chronic Heart failure type: diastolic Qualified Code(s): I50.33 - Acute on chronic diastolic (congestive) heart failure (2) Hypoxia: (3) Fibrosis, idiopathic pulmonary: (4) Interstitial lung disease: (5) Respiratory failure with hypoxia: QUALIFIERS: Chronicity: acute on chronic Qualified Code(s): J96.21 - Acute and chronic respiratory failure with hypoxia (6) Acute on chronic respiratory failure with hypoxemia: PLAN: Plan Acute on chronic respiratory failure with hypoxia secondary to acute exacerbation of his interstitial lung disease/heart failure with preserved ejection fraction. Using accessory muscles of respiration. Requiring Venturi mask. Place on monitored bed on PCU Impression of chest x-ray by radiologist: Interstitial prominence suggesting pulmonary edema. This may be superimposed on chronic lung disease. Question small effusions. Independent interpretation of x-ray by hospitalist: Agrees with radiology interpretation. BNP of 1811.7. His BNP on 08/17/2022 was 1309.4. Highest BNP on file so far 3979.8 and lowest BNP on factors of 1105.4. On home Bumex 1 mg p.o. daily. Escalate diuretics to Lasix 40 mg IV twice daily. Extremity [id number] ordered. DuoNeb [id number] ordered. Solu-Medrol etzujk-[id number] ordered Weight on admission to the floor; and then daily Strict I&O's Echocardiogram on 05/02/2022 showed EF of 60%. Fluid restriction of 1500 mls daily 2 g cardiac diet Hypertension Blood pressure is not within goal Home blood pressure medication continued. Trend blood pressure and adjust blood pressure medications. Stage IIIb CKD Stable Trend BMP. DVT prophylaxis Subcutaneous Lovenox ordered. Time spent in the patient's overall evaluation,decision-making process, review of diagnostic data, adjustment of management, discussion with other providers, nursing nursing and ancillary staff involved in patient's care documentation, 65 minutes.
[2022-09-22] MEDS: Furosemide 40 MG/4 ML Vial IV (22:40)
[2022-09-23] VITALS (11 sets, daily range): BP systolic 158–183; BP diastolic 56–86; PULSE 67–98; RESP 18; TEMP 36.3–36.8; O2SAT 92–98; BMI 20.2; BMI 23.8
[2022-09-23] MEDS: hydrALAZINE 50 MG Tablet 100 MG PO ×4 (00:18→21:51)
[2022-09-23 06:17] LABS: Absolute Lymphocyte Count 0.45 X10^3/uL (0.83-4.51); Absolute Neutrophil Count 7.3 X10^3/uL (2.0-7.7); Basophil# 0.01 X10^3/uL; Basophil% 0.1 % (0-1); Hematocrit 28.1 % (40-54); Lymphocyte # 0.45 X10^3/ul (0.83-4.51); Lymphocyte % 5.7 % (19-41); Mean Corpuscular Hgb 29.6 pg (27.0-32.0); Mean Corpuscular Volume 92.4 fL (80-94); Mean Platelet Vol. 10.3 fl (6.2-12.0); Monocyte# 0.04 X10^3/uL; Monocyte% 0.5 % (0-10); NRBC Flagged by Analyzer 0 % (0-5); Neutrophil # 7.28 X10^3/uL (2.7-7.7); Neutrophil % 92.7 % (47-70); POSITIVE DIFFERENTIAL YES; Platelet Count 195 K/mm3 (150-450); RBC Distribution Width SD 50.4 fl (35.1-43.9); Red Blood Count 3.04 M/mm3 (4.6-6.2); White Blood Count 7.9 K/mm3 (4.4-11.0)
[2022-09-23 06:20] LABS: Differential Indicated SCAN CRITERIA MET
[2022-09-23 06:38] LABS: Anisocytosis 1+
[2022-09-23 06:53] LABS: Anion Gap 7 (5-15); BUN 41 mg/dL (7-18); BUN/Creat Ratio 22.2 RATIO (10-20); Calcium,Total 8.3 mg/dL (8.5-10.1); Chloride 107 mmol/L (98-107); Creatinine, Serum 1.85 mg/dL (0.70-1.30); EST Glomerular Filtration Rate 38 mL/min (>60); Est Glom Filt Rate - Afr Amer 46 mL/min (>60); Estimated Creatinine Clearance 32.35 ml/min; Glucose 148 mg/dL (74-106); Potassium 4.7 mmol/L (3.5-5.1); Sodium Level 137 mmol/L (136-145)
[2022-09-23] MEDS: Carvedilol 25 MG Tablet PO ×2 (08:24→17:32)
[2022-09-23] MEDS: Ferrous Sulfate 325 MG Tablet PO ×2 (08:24→17:33)
[2022-09-23] MEDS: Aspirin 81 MG TAB.CHEW PO (08:24)
[2022-09-23] MEDS: Multivitamins,Ther W-Minerals Tablet 1 TABLET PO (08:25)
[2022-09-23] MEDS: Sertraline 50 MG Tablet PO (11:00)
[2022-09-23] MEDS: amLODIPine 10 MG Tablet PO (11:00)
[2022-09-23] MEDS: Enoxaparin 40 MG/0.4 ML Syringe SC (11:00)
[2022-09-23] MEDS: Ascorbic Acid 500 MG Tablet PO (11:00)
[2022-09-23] MEDS: Ezetimibe 10 MG Tablet PO (11:00)
[2022-09-23] MEDS: Furosemide 40 MG/4 ML Vial IV ×2 (11:00→17:33)
[2022-09-23] MEDS: 0.9% Saline Lock 10 ML Syringe IV (11:26)
[2022-09-23] MEDS: Ceftriaxone 1 GM/50 ML BAG IV (12:00)
[2022-09-23] MEDS: Azithromycin 250 MG Tablet 500 MG PO (12:00)
--- NOTE | 2022-09-23 13:03 | PN.HOSP_ITS ---
Reason for Visit Reason for Visit: Diagnoses Acute on chronic diastolic (congestive) heart failure (09/22/22) Idiopathic pulmonary fibrosis (09/22/22) Interstitial pulmonary disease, unspecified (09/22/22) Acute and chronic respiratory failure with hypoxia (09/22/22) Hypoxemia (09/22/22) Objective Data Objective Data Vital Signs: Vital Signs Temp Pulse Resp BP Pulse Ox O2 Del Method O2 Flow Rate 97.8 F 87 18 158/56 H 97 High Flow 9 09/23/22 03:44 09/23/22 06:13 09/23/22 03:44 09/23/22 06:13 09/23/22 03:44 09/23/22 03:44 09/23/22 03:44 FiO2 50 09/22/22 22:41 Oxygen Flow Rate (L/min) 9 Oxygen Delivery Method High Flow Weight: 156 lb 8.451 oz Body Mass Index (BMI) 23.8 Intake & Output: Intake and Output for Last 24 Hours 09/21/22 09/22/22 09/23/22 23:59 23:59 23:59 Intake Total 60 / 60 120 / 120 Output Total 300 / 300 400 / 400 Balance -240 / -240 -280 / -280 Lab / Micro Data 09/23/22 05:40 09/23/22 05:40 Labs: Laboratory Results - last 24 hr 09/22/22 20:40: WBC 13.8 H, RBC 3.47 L, Hgb 10.0 L, Hct 32.0 L, MCV 92.2, MCH 28.8, MCHC 31.3 L, RDW Std Deviation 50.1 H, RDW Coeff of Lisa 15.0 H, Plt Count 219, MPV 9.9, Immature Gran % (Auto) 1.000 H, Neut % (Auto) 86.5 H, Lymph % (Auto) 5.9 L, [place] % (Auto) 5.7, Eos % (Auto) 0.5, Baso % (Auto) 0.4, Absolute Neuts (auto) 12.0 H, Absolute Lymphs (auto) 0.81 L, Nucleated RBC % 0, Sodium 136, Potassium 4.7, Chloride 106, Carbon Dioxide 23.0, Anion Gap 7, BUN 40 H, Creatinine 1.85 H, Estim Creat Clear Calc 32.35, Est GFR (MDRD) Af Amer 46 L, Est GFR (MDRD) Non-Af 38 L, BUN/Creatinine Ratio 21.6 H, Glucose 149 H, Calcium 8.6, Troponin I High Sens 49, B-Natriuretic Peptide 1811.7 H 09/23/22 05:40: WBC 7.9, RBC 3.04 L, Hgb 9.0 L, Hct 28.1 L, MCV 92.4, MCH 29.6, MCHC 32.0, RDW Std Deviation 50.4 H, RDW Coeff of Lisa 15.0 H, Plt Count 195, MPV 10.3, Immature Gran % (Auto) 1.000 H, Neut % (Auto) 92.7 H, Lymph % (Auto) 5.7 L , [place] % (Auto) 0.5, Eos % (Auto) 0.0, Baso % (Auto) 0.1, Absolute Neuts (auto) 7.3, Absolute Lymphs (auto) 0.45 L, Nucleated RBC % 0, Anisocytosis 1+, Sodium 137, Potassium 4.7, Chloride 107, Carbon Dioxide 23.0, Anion Gap 7, BUN 41 H, Creatinine 1.85 H, Estim Creat Clear Calc 32.35, Est GFR (MDRD) Af Amer 46 L, Est GFR (MDRD) Non-Af 38 L, BUN/Creatinine Ratio 22.2 H, Glucose 148 H, Calcium 8.3 L Radiography Diagnostic Testing: Radiology Impression Chest X-Ray 09/22/22 20:50 IMPRESSION: Interstitial prominence suggesting pulmonary edema. This may be superimposed on chronic lung disease. Question small effusions. Electronically Signed: Toni Perez MD at 21:05 EDT , Rhythm Strip Rhythm Strip: Sinus Rhythm Rate: 76 Ectopy: PVC(s) Physical Exam Narrative Seen and examined. Patient has history of chronic interstitial lung disease. Patient follows outside motion designer in [facility] but was supposed to see our pul secretary to the vice president Dr. Rogers but could not get earlier appointment. Patient has chronic shortness of breath and dyspnea on exertion but it got worse Physical exam General: Alert, Oriented x3, Cooperative HEENT: Atraumatic, PERRLA, EOMI, Normocephalic Oral: Oral mucosa dry. No Gingival or Mucosal Lesions/ Ulcerations Neck: Supple, No JVD, Negative Carotid Bruits Lungs: Air entry severely diminished. Fine inspiratory rales. On high flow oxygen and dyspnea on mild exertion Cardiovascular: Regular rate, Regular Rhythm, Normal S1, Normal S2, systolic murmur. Abdomen: Bowel Sounds Present, Soft, Non Tender, Non-Distended : No renal angle tenderness. No suprapubic tenderness. Extremities: No edema, Capillary Refill Less than 3 Seconds Skin: No rashes, No breakdown Musculoskeletal: No Tenderness to Palpation of Joints or Extremities. ROM intact. Neurological: Cranial nerves II-XII grossly intact, DTR 2+/4 and Symmetrical, Neuro grossly intact Psych/Mental Status: Normal Affect, Appropriate. Assessment & Plan Assessment/Plan (1) CHF (congestive heart failure): QUALIFIERS: Heart failure type: diastolic Heart failure chronicity: acute on chronic Qualified Code(s): I50.33 - Acute on chronic diastolic (congestive) heart failure (2) Hypoxia: (3) Fibrosis, idiopathic pulmonary: (4) Interstitial lung disease: (5) Respiratory failure with hypoxia: QUALIFIERS: Chronicity: acute on chronic Qualified Code(s): J96.21 - Acute and chronic respiratory failure with hypoxia (6) Acute on chronic respiratory failure with hypoxemia: PLAN: Plan 1. Acute on chronic respiratory failure with hypoxia secondary to acute exacerbation of his interstitial lung disease and acute on chronic heart failure with preserved ejection fraction. Patient was admitted in PCU with tachypnea, dyspnea at rest on Venturi mask. Shortness of breath is better since admission. Chest x-ray imaging reviewed w [facility] shows bilateral pulmonary venous congestion/pulmonary edema superimposed on chronic lung disease.. Mild/small pleural effusion most likely on left side. BNP of 1811.7. His BNP on 08/17/2022 was 1309.4. On home Bumex 1 mg p.o. daily. Started on Lasix 40 mg IV twice daily. Heart failure core measures including intake and output, fluid restriction less than 1500 mL, daily weight m onitoring, kidney and electrolytes monitoring. Echocardiogram on 05/02/2022 showed EF of 60%. Recycling Technician consult requested. Patient follows outside latin professor but was supposed to see Dr. Rogers. Hypertension Blood pressure is not within goal Home blood pressure medication continued. Trend blood pressure and adjust blood pressure medications. Stage IIIb CKD Creatinine 1.85. Patient baseline creatinine runs around 1.85-2.16. Estimated creatinine clearance 32 mill per minute DVT prophylaxis Subcutaneous Lovenox Clinical Impression(s) from Imaging Studies Chest X-Ray 09/22/22 20:50 IMPRESSION: Interstitial prominence suggesting pulmonary edema. This may be superimposed on chronic lung disease. Question small effusions. Charges/Coding Visit Charges Inpatient E&M: 94494 Subs Hosp L2
[2022-09-23] MEDS: Doxazosin 4 MG Tablet PO (21:51)
[2022-09-23] MEDS: Atorvastatin Calcium 80 MG Tablet PO (21:51)
[2022-09-24] VITALS (9 sets, daily range): BP systolic 104–161; BP diastolic 49–60; PULSE 61–83; RESP 16–18; TEMP 36.1–36.7; O2SAT 90–100; BMI 23.6
[2022-09-24] MEDS: 0.9% Saline Lock 10 ML Syringe IV ×2 (05:52→09:28)
[2022-09-24] MEDS: hydrALAZINE 50 MG Tablet 100 MG PO ×2 (05:52→13:11)
[2022-09-24] MEDS: Aspirin 81 MG TAB.CHEW PO (09:14)
[2022-09-24] MEDS: Enoxaparin 40 MG/0.4 ML Syringe SC (09:15)
[2022-09-24] MEDS: Multivitamins,Ther W-Minerals Tablet 1 TABLET PO (09:15)
[2022-09-24] MEDS: Furosemide 40 MG/4 ML Vial IV (09:15)
[2022-09-24] MEDS: Carvedilol 25 MG Tablet PO ×2 (09:15→17:20)
[2022-09-24] MEDS: Ferrous Sulfate 325 MG Tablet PO ×2 (09:15→17:20)
[2022-09-24] MEDS: amLODIPine 10 MG Tablet PO (09:16)
[2022-09-24] MEDS: Ascorbic Acid 500 MG Tablet PO (09:16)
[2022-09-24] MEDS: Ezetimibe 10 MG Tablet PO (09:16)
[2022-09-24] MEDS: Azithromycin 250 MG Tablet 500 MG PO (09:16)
[2022-09-24] MEDS: Sertraline 50 MG Tablet PO (09:17)
[2022-09-24] MEDS: Ceftriaxone 1 GM/50 ML BAG IV (09:35)
--- NOTE | 2022-09-24 10:33 | EX.PCM.CONCC ---
Assessment & Plan Assessment/Plan (1) Acute on chronic respiratory failure with hypoxemia: PLAN: Plan RECOMMENDATIONS: 1. Continue diuresis as tolerated by hemodynamics and renal function. 2. Wean supplemental oxygen to maintain saturations at or above 90%. 3. Encourage incentive spirometer use and mobilize patient as tolerated. 4. Okay to discontinue antibiotics from my perspective. 5. The patient can follow-up in the pulmonary medicine clinic 2 weeks postdischarge. IMPRESSIONS: 1. Acute on chronic hypoxemic respiratory failure The patient has a known history of interstitial lung disease, which has been stable with time along with obstructive sleep apnea and chronic hypoxemic respiratory failure. In the past, the patient has been noncompliant with nocturnal PAP therapy and supplemental oxygen, despite recommendations. He does have evidence of pulmonary hypertension on echocardiogram. I do suspect that his presenting symptoms were likely secondary to decompensated heart failure with preserved ejection fraction and possible worsening in his pulmonary hypertension due to a history of noncompliance with prescribed supplemental O2. However, the patient reported that after his last office visit with me he has been utilizing his supplemental oxygen at 3 to 4 L/min. The patient appears to be responding appropriately to IV diuretic therapy. This will be continued as tolerated by hemodynamics and renal function. This note was generated with [employer] dictation software. It may contain incorrect words, spelling, and punctuation that were not noted in checking the note before signing. HPI Consult Data Date of Consult: 09/25/22 HPI Narrative Reason for Consultation: Respiratory failure HPI Narrative: The patient is a 77-year-old male, with a history as outlined below, who presented to the emergency department on September 22 with progressive shortness of breath. The patient has a known history of interstitial lung disease, obstructive sleep apnea with PAP noncompliance and chronic hypoxemic respiratory failure with supplemental oxygen noncompliance. Following my last office visit with the patient in May 2022, the patient reported that he became compliant with use of supplemental oxygen at 3-4 L/min. On presentation to the emergency department, the patient was noted to be afebrile but was hypertensive and tachypneic. Initial laboratory evaluation revealed a white blood cell count of 14,000. Chemistry profile was notable for a creatinine of 1.85 with a BNP of 1811. Plain film chest x-ray demonstrated stigmata of pulmonary edema. The patient was placed on scheduled IV Lasix along with empiric antibiotics and admitted to the hospital for further management. This morning, the patient reported interval improvement in his breathing quality. He is currently maintaining appropriate oxygen saturations on 4 L/min via nasal cannula. [facility] Medical History Anemia in chronic kidney disease (CKD) Arthritis Arthritis Atherosclerosis of coronary artery of [place] heart without angina pectoris Bilateral carotid artery stenosis Chronic cough Chronic diastolic (congestive) heart failure Chronic kidney disease, stage 3 CVA (cerebral vascular accident) Diarrhea Diverticulitis Elevated troponin (04/07/19) Essential (primary) hypertension Flu vaccine need Generalized anxiety disorder GERD (gastroesophageal reflux disease) Gout Hemoptysis Hyperlipidemia Hypoxia Increased sputum production Interstitial lung disease FRANCISCO JAVIER (obstructive sleep apnea) Paroxysmal atrial flutter Peripheral vascular occlusive disease Pleural effusion due to CHF (congestive heart failure) (08/27/19) PND (post-nasal drip) Renal artery stenosis Secondary pulmonary arterial hypertension Stage III chronic kidney disease Stenosis of left subclavian artery Transient ischemic attack Varicose veins of both lower extremities Home Medications aspirin 81 mg chewable tablet 81 mg PO DAILY Heart 08/03/19 [History Last Taken 08/24/19] multivitamin with minerals 1 tab PO DAILY supplement 08/03/19 [History Last Taken 08/24/19] ascorbate calcium (vitamin C) 500 mg tablet 500 mg PO DAILY Check with primary doctor 09/28/20 [History Last Taken Unknown] atorvastatin 80 mg tablet 80 mg PO DAILY cholesterol lowering #90 tabs 11/30/21 [Rx Last Taken Unknown] ezetimibe 10 mg tablet 10 mg PO DAILY cholesterol #90 tabs 11/30/21 [Rx Last Taken Unknown] mecobalamin (vitamin B12) 10,000 mcg solution for injection 10,000 mcg IM QMONTH Check with primary doctor 08/14/22 [History Last Taken Unknown] nitroglycerin 0.4 mg sublingual tablet 0.4 mg sublingual PRN PRN Angina #25 tabs 08/14/22 [Rx Last Taken Unknown] amlodipine 10 mg tablet 10 mg PO DAILY Check with primary doctor 08/17/22 [History Last Taken Unknown] carvedilol 25 mg tablet 25 mg PO BID Check with primary doctor 08/17/22 [History Last Taken Unknown] doxazosin 4 mg tablet 4 mg PO QHS Check with primary doctor 08/17/22 [History Last Taken Unknown] sertraline 50 mg tablet 50 mg PO DAILY Check with primary doctor 08/17/22 [History Last Taken Unknown] bumetanide 1 mg tablet 1 mg PO BIDCM Check with primary doctor 30 days #60 tabs 09/25/22 [Rx Last Taken Unknown] ferrous sulfate 325 mg (65 mg iron) tablet (Feosol) 325 mg PO DAILY supplement 30 days #0 tabs 09/25/22 [Rx Last Taken Unknown] hydralazine 100 mg tablet 50 mg (1/2 x 100 mg) PO BID 90 days #270 tabs 09/25/22 [Rx Last Taken Unknown] sennosides 8.6 mg-docusate sodium 50 mg tablet (Stool Softener-Stimulant Laxative) 2 tab PO BID PRN PRN Constipation #0 tabs 09/25/22 [Rx Last Taken Unknown] Allergy/AdvReac Type Severity Reaction Status Date / Time No Known Allergies Allergy Verified 09/12/22 11:05 Family History Son CAD (coronary artery disease) Brother CAD (coronary artery disease) Diabetes Brother CAD (coronary artery disease) Diabetes Other Anemia Arthritis CVA (cerebral vascular accident) Hyperlipemia Hypertension Kidney disease Skin cancer Surgical History H/O basal cell carcinoma excision (09/2018) H/O colonoscopy H/O coronary artery bypass surgery (08/14/12) History of angioplasty of peripheral vessel History of herniorrhaphy History of knee replacement History of left common carotid artery stent placement (2003) History of left heart catheterization (08/13/12) History of right-sided carotid endarterectomy (05/2016) History of stent insertion of renal artery (10/01/19) Social History Smoking Status: Former smoker Tobacco: How many years used: 15 how long ago did patient quit smokin second hand exposure: No alcohol intake: current alcohol intake frequency: holidays/special occasions only substance use type: does not use caffeine: Yes ROS ROS Narrative 10 systems were reviewed with pertinent positives as noted in the HPI above. Physical Exam Const alert, oriented x3 and no apparent distress HEENT normocephalic, head/scalp atraumatic and moist oral mucous membranes Eyes PERRL, EOMs intact bilaterally and conjunctivae normal Neck supple General: trachea midline Chest inspection of chest normal Resp normal respiratory effort Resp Narrative: Fine crackles present Cardio regular rate and regular rhythm GI normal to inspection, nondistended, normoactive bowel sounds Extremity no clubbing, cyanosis or edema Skin no rashes or lesions noted Neuro CN's II-XII intact bilaterally, moves all extremities and no focal motor deficits Psych cooperative and affect normal Lab / Micro Data 09/25/22 05:29 09/25/22 05:29 Rhythm Strip Rhythm Strip: Sinus Rhythm Rate: 76 Ectopy: PVC(s) Charges/Coding Visit Charges Inpatient E&M: 51766 Init Hosp L3
--- NOTE | 2022-09-24 12:34 | PCM.PN.HOSP ---
Reason for Visit Reason for Visit: Diagnoses Acute on chronic diastolic (congestive) heart failure (09/22/22) Idiopathic pulmonary fibrosis (09/22/22) Interstitial pulmonary disease, unspecified (09/22/22) Acute and chronic respiratory failure with hypoxia (09/22/22) Hypoxemia (09/22/22) Objective Data Objective Data Vital Signs: Vital Signs Temp Pulse Resp BP Pulse Ox O2 Del Method O2 Flow Rate 97 F L 70 16 112/60 97 High Flow 4 09/24/22 12:24 09/24/22 12:24 09/24/22 12:24 09/24/22 12:24 09/24/22 12:24 09/24/22 12:24 09/24/22 12:24 FiO2 50 09/22/22 22:41 Oxygen Flow Rate (L/min) 4 Oxygen Delivery Method High Flow Weight: 154 lb 15.759 oz Body Mass Index (BMI) 23.6 Intake & Output: Intake and Output for Last 24 Hours 09/22/22 09/23/22 09/24/22 23:59 23:59 23:59 Intake Total 60 / 60 1270 / 1270 110 / 110 Output Total 300 / 300 2049 / 0 400 / 400 Balance -240 / -240 -780 / -780 -290 / -290 Lab / Micro Data 09/23/22 05:40 09/24/22 13:19 Rhythm Strip Rhythm Strip: Sinus Rhythm Rate: 76 Ectopy: PVC(s) Physical Exam Narrative Seen and examined. Patient has history of chronic interstitial lung disease. Patient follows outside state pilot in [facility]. Feels shortness of breath is better. Physical exam General: Alert, Oriented x3, Cooperative HEENT: Atraumatic, PERRLA, EOMI, Normocephalic Oral: Oral mucosa moist. No Gingival or Mucosal Lesions/ Ulcerations Neck: Supple, No JVD, Negative Carotid Bruits Lungs: Air entry severely diminished. Fine inspiratory rales. On high flow oxygen. No dyspnea at rest. Dyspnea on moderate exertion Cardiovascular: Regular rate, Regular Rhythm, Normal S1, Normal S2, systolic murmur. Abdomen: Bowel Sounds Present, Soft, Non Tender, Non-Distended : No renal angle tenderness. No suprapubic tenderness. Extremities: No edema, Capillary Refill Less than 3 Seconds Skin: No rashes, No breakdown Musculoskeletal: No Tenderness to Palpation of Joints or Extremities. ROM intact. Neurological: Cranial nerves II-XII grossly intact, DTR 2+/4 and Symmetrical, Neuro grossly intact Psych/Mental Status: Normal Affect, Appropriate. Assessment & Plan Assessment/Plan (1) CHF (congestive heart failure): QUALIFIERS: Heart failure chronicity: acute on chronic Heart failure type: diastolic Qualified Code(s): I50.33 - Acute on chronic diastolic (congestive) heart failure (2) Hypoxia: (3) Fibrosis, idiopathic pulmonary: (4) Interstitial lung disease: (5) Respiratory failure with hypoxia: QUALIFIERS: Chronicity: acute on chronic Qualified Code(s): J96.21 - Acute and chronic respiratory failure with hypoxia (6) Acute on chronic respiratory failure with hypoxemia: PLAN: Plan 1. Acute on chronic respiratory failure with hypoxia secondary to acute exacerbation of his interstitial lung disease and acute on chronic heart failure with preserved ejection fraction. Patient was admitted in PCU with tachypnea, dyspnea at rest on Venturi mask. Shortness of breath is better since admission. Chest x-ray imaging reviewed which shows bilateral pulmonary venous congestion/pulmonary edema superimposed on chronic lung disease.. Mild/small pleural effusion most likely on left side. BNP of 1811.7. His BNP on 08/17/2022 was 1309.4. On home Bumex 1 mg p.o. daily. Started on Lasix 40 mg IV twice daily. Heart failure core measures including intake and output, fluid restriction less than 1500 mL, daily weight monitoring, kidney and electrolytes monitoring. Echocardiogram on 05/02/2022 showed EF of 60%. Hardboard Grinder consult requested. Patient follows outside state pilot but was supposed to see Dr. Rogers. 09/24: Patient seen by state pilot. Antibiotics discontinued seems more acute on chronic hypoxic respiratory failure. Patient had recent echo as mentioned above. Shortness of breath getting better on diuretic. Hypertension Blood pressure is not within goal Home blood pressure medication continued. Trend blood pressure and adjust blood pressure medications. 09/25: Blood pressure systolic 112. Hydralazine dose decreased to 25 mg 3 times daily with holding parameter. Patient also on carvedilol 25 mg twice daily with holding parameters. Stage IIIb CKD Creatinine 1.85. Patient baseline creatinine runs around 1.85-2.16. Estimated creatinine clearance 32 mill per minute 09/24 creatinine 2.31. Increased from 1.8. BUN 58. Electrolytes in normal range. Decrease diuretic 40 mg IV daily. DVT prophylaxis Subcutaneous Lovenox Clinical Impression(s) from Imaging Studies Chest X-Ray 09/22/22 20:50 IMPRESSION: Interstitial prominence suggesting pulmonary edema. This may be superimposed on chronic lung disease. Question small effusions. Charges/Coding Visit Charges Inpatient E&M: 86265 Subs Hosp L2
[2022-09-24 14:11] LABS: Anion Gap 7 (5-15); BUN 58 mg/dL (7-18); BUN/Creat Ratio 25.1 RATIO (10-20); Calcium,Total 8.3 mg/dL (8.5-10.1); Chloride 107 mmol/L (98-107); Creatinine, Serum 2.31 mg/dL (0.70-1.30); EST Glomerular Filtration Rate 29 mL/min (>60); Est Glom Filt Rate - Afr Amer 35 mL/min (>60); Estimated Creatinine Clearance 25.91 ml/min; Glucose 101 mg/dL (74-106); Potassium 4.1 mmol/L (3.5-5.1); Sodium Level 140 mmol/L (136-145)
--- NOTE | 2022-09-24 14:30 | CASEMGMT ---
JEROD HART Discharge Planning Assessment: Face to Face with patient for initial transition planning/care coordination assessment.?JEROD HART introduced self and role at [facility], pt alert, appropriate, voices understanding and is agreeable to participating in assessment with S.Camilo Rita at bedside.? Care providers, pharmacy,?and demographics verified. ? Admitting dx: A/C hypoxic respiratory failure PCP: Chantelle Specialists: Lg (finisher hand), Jigar (tractor mechanic helper at [facility]) [facility] [place] Insurance: MCR A/B, [employer] Prescription Benefit:?yes Living Will/HPOA: yes, HPOA son Nick LNOK: son Nick Living Arrangements: Pt lives with his S.O. in a single story home with 1-2 steps to enter. Pt states he is independent with ADLs including self care and household tasks. Pt states he mows his sons yard. Pt and S.O. set up their meds in pill boxes q2 weeks. S.O. prepares meals. Transportation: pt drives and denies any transportation concerns DME:nebulizer, pulse oximeter (multiple), State they had O2 at 3l/min from [facility] with portability and pt had purchased an [employer] G4. S.O. states pt's tractor mechanic helper had arranged for them to get and they had just received yesterday a new Inogen G5 which came with a home concentrator also. Pt states he has extension tubing at home to promote mobility. S.O. states the new Inogen concentrator are being rented but from [employer] itself and not through [facility]. SNF: denies HHC: denies any skilled HHC but states he has been active with [facility] program. Marlon, Field Artillery Targeting Technician of [facility] notified of pt's admission for continuity of care and confirmation of resumption at dc. Discussed possible skilled home healthcare but pt does not meet criteria for homebound status. ? Plan: DC home with resumption of [facility] Will continue to monitor and assist with further discharge needs as identified. David Banerjee RN CM
[2022-09-24] MEDS: Atorvastatin Calcium 80 MG Tablet PO (20:54)
[2022-09-24] MEDS: Doxazosin 4 MG Tablet PO (20:54)
[2022-09-24] MEDS: hydrALAZINE 25 MG Tablet PO (20:56)
[2022-09-25 03:11] VITALS: BP 154/60; PULSE 55; RESP 17; TEMP 36.6; O2SAT 96
[2022-09-25 05:30] VITALS: BMI 22.6
[2022-09-25 06:02] LABS: Absolute Lymphocyte Count 1.86 X10^3/uL (0.83-4.51); Absolute Neutrophil Count 9.1 X10^3/uL (2.0-7.7); Basophil# 0.03 X10^3/uL; Basophil% 0.2 % (0-1); Eosinophil# 0.17 X10^3/uL; Eosinophils% 1.4 % (0-5); Hematocrit 27.5 % (40-54); Hemoglobin 8.7 g/dL (13.0-16.5); Lymphocyte # 1.86 X10^3/ul (0.83-4.51); Lymphocyte % 14.8 % (19-41); Mean Corp Hgb Conc 31.6 g/dL (32-36); Mean Corpuscular Hgb 29.9 pg (27.0-32.0); Mean Corpuscular Volume 94.5 fL (80-94); Mean Platelet Vol. 10.1 fl (6.2-12.0); Monocyte# 1.31 X10^3/uL; Monocyte% 10.4 % (0-10); NRBC Flagged by Analyzer 0 % (0-5); Neutrophil # 9.09 X10^3/uL (2.7-7.7); Neutrophil % 72.4 % (47-70); Platelet Count 219 K/mm3 (150-450); RBC Distribution Width CV 15.3 % (11.6-14.6); Red Blood Count 2.91 M/mm3 (4.6-6.2); White Blood Count 12.6 K/mm3 (4.4-11.0)
[2022-09-25 06:06] VITALS: BP 153/53; PULSE 61
[2022-09-25] MEDS: hydrALAZINE 25 MG Tablet PO (06:06)
[2022-09-25 06:34] LABS: Anion Gap 4 (5-15); BUN 59 mg/dL (7-18); BUN/Creat Ratio 25.5 RATIO (10-20); Calcium,Total 8.4 mg/dL (8.5-10.1); Chloride 110 mmol/L (98-107); Creatinine, Serum 2.31 mg/dL (0.70-1.30); EST Glomerular Filtration Rate 29 mL/min (>60); Est Glom Filt Rate - Afr Amer 35 mL/min (>60); Estimated Creatinine Clearance 25.57 ml/min; Glucose 91 mg/dL (74-106); Potassium 4.1 mmol/L (3.5-5.1); Sodium Level 142 mmol/L (136-145)
[2022-09-25 07:38] VITALS: O2SAT 96
[2022-09-25 08:51] VITALS: BP 160/53; PULSE 68; RESP 18; TEMP 36.6; O2SAT 97
[2022-09-25] MEDS: Ezetimibe 10 MG Tablet PO (08:58)
[2022-09-25] MEDS: Ferrous Sulfate 325 MG Tablet PO (08:58)
[2022-09-25] MEDS: Carvedilol 25 MG Tablet PO (08:59)
[2022-09-25] MEDS: Ascorbic Acid 500 MG Tablet PO (08:59)
[2022-09-25] MEDS: Multivitamins,Ther W-Minerals Tablet 1 TABLET PO (08:59)
[2022-09-25] MEDS: Furosemide 40 MG/4 ML Vial IV (08:59)
[2022-09-25] MEDS: amLODIPine 10 MG Tablet PO (08:59)
[2022-09-25] MEDS: Sertraline 50 MG Tablet PO (08:59)
[2022-09-25] MEDS: Aspirin 81 MG TAB.CHEW PO (08:59)
[2022-09-25] MEDS: Enoxaparin 30 MG/0.3 ML Syringe SC (09:08)
[2022-09-25 10:00] VITALS: O2SAT 94
--- NOTE | 2022-09-25 10:10 | DCINST_ITS ---
Discharge Instructions Diet Discharge Diet: No restrictions Activity Discharge Activity: Return to Normal Activity Weight Bearing Status: Weight bearing as tolerated Dressing / Incision Call your doctor if you observe: Fever of 101 or Higher, Coldness, Increased Pain, Numbness or Tingling, Change in Color, Inability to urinate, Inability to have a bowel movement, Shortness of breath, Dizziness, Fainting spells, Swelling in the ankles, Chest pain, Prolonged hiccupping, Increased palpitations (irregular heartbeat) and Calf discomfort Follow Up Care When: IN 2 WEEKS Test Results: Test results from this visit will be discussed in further detail at your follow- up appointment, if applicable. Discharge Plan Admission Admit Date/Time: 09/22/22 22:32 Attending Provider: Luiz Lyons Primary Care Provider: Virginie Lockhart Consulting Providers: Real Terry; Simón Mo; Ian Rogers; Jeffrey Salas; David Sandoval; Aviva Hilario CLINICAL OPERATIONS LEADER Discharge Orders/Prescriptions Prescriptions: No Action ferrous sulfate [Feosol] 325 mg (65 mg iron) tablet 325 mg PO BID ascorbate calcium (vitamin C) 500 mg tablet 500 mg PO DAILY mecobalamin (vitamin B12) 10,000 mcg recon soln 10,000 mcg IM QMONTH nitroglycerin 0.4 mg tablet, sublingual 0.4 mg SL PRN PRN (Reason: Angina) Qty: 25 3RF multivitamin with minerals 1 EACH tablet 1 tab PO DAILY aspirin 81 MG tablet,chewable 81 mg PO DAILY amlodipine 10 mg tablet 10 mg PO DAILY doxazosin 4 mg tablet 4 mg PO QHS carvedilol 25 mg tablet 25 mg PO BID bumetanide 1 mg tablet 1 mg PO DAILY sertraline 50 mg tablet 50 mg PO DAILY atorvastatin 80 mg tablet 80 mg PO DAILY Qty: 90 3RF ezetimibe 10 mg tablet 10 mg PO DAILY Qty: 90 3RF hydralazine 100 mg tablet 100 mg PO TID 90 Days Qty: 270 3RF Referrals / Follow Up: Virginie Lockhart MD [Primary Care Provider] - Disposition Disposition (needs filled in before D/C Order can be placed): Home, Self Care
--- NOTE | 2022-09-25 10:10 | PCM.DC ---
Discharge Instructions Diet Discharge Diet: No restrictions Activity Discharge Activity: Return to Normal Activity Weight Bearing Status: Weight bearing as tolerated Dressing / Incision Call your doctor if you observe: Fever of 101 or Higher, Coldness, Increased Pain, Numbness or Tingling, Change in Color, Inability to urinate, Inability to have a bowel movement, Shortness of breath, Dizziness, Fainting spells, Swelling in the ankles, Chest pain, Prolonged hiccupping, Increased palpitations (irregular heartbeat) and Calf discomfort Follow Up Care When: IN 2 WEEKS Test Results: Test results from this visit will be discussed in further detail at your follow-up appointment, if applicable. Discharge Plan Admission Admit Date/Time: 09/22/22 22:32 Attending Provider: Luiz Lyons Primary Care Provider: Virginie Lockhart Consulting Providers: Real Terry; Simón Mo; Ian Rogers; Jeffrey Salas; David Sandoval; Aviva Hilario DEPUTY PROSECUTING ATTORNEY Discharge Orders/Prescriptions Prescriptions: New sennosides-docusate sodium [Stool Softener-Stimulant Laxat] 8.6-50 mg Tablet 2 tab PO BID PRN PRN (Reason: Constipation) Qty: 0 0RF Continued ascorbate calcium (vitamin C) 500 mg tablet 500 mg PO DAILY mecobalamin (vitamin B12) 10,000 mcg recon soln 10,000 mcg IM QMONTH nitroglycerin 0.4 mg tablet, sublingual 0.4 mg SL PRN PRN (Reason: Angina) Qty: 25 3RF multivitamin with minerals 1 EACH tablet 1 tab PO DAILY aspirin 81 MG tablet,chewable 81 mg PO DAILY amlodipine 10 mg tablet 10 mg PO DAILY doxazosin 4 mg tablet 4 mg PO QHS carvedilol 25 mg tablet 25 mg PO BID sertraline 50 mg tablet 50 mg PO DAILY atorvastatin 80 mg tablet 80 mg PO DAILY Qty: 90 3RF ezetimibe 10 mg tablet 10 mg PO DAILY Qty: 90 3RF Changed hydralazine 100 mg tablet 50 mg PO BID 90 Days Qty: 270 3RF Rx Instructions: Hold for SBP less than 130 mmHg ferrous sulfate [Feosol] 325 mg (65 mg iron) tablet 325 mg PO DAILY 30 Days Qty: 0 0RF bumetanide 1 mg tablet 1 mg PO BIDCM 30 Days Qty: 60 0RF Rx Instructions: Hold for 2 days, repeat BMP and then start from 09/28/2022 Referrals / Follow Up: Virginie Lockhart MD [Primary Care Provider] - Within 1 Week John Salter MD [Med Staff - Active Staff] - Within 1 Month Gris Leal MD [Med Staff - Consulting] - Within 1 Month David Sandoval MD [Med Staff - Active Staff] - Within 1 Month Marcie Ball PA [Med Staff - Adv Practice Prof] - Within 2 Weeks (FOR Heart failure) Disposition Disposition (needs filled in before D/C Order can be placed): Home, Self Care
[2022-09-25 10:13] VITALS: BP 160/53; PULSE 68; RESP 18; TEMP 36.6; O2SAT 97
--- NOTE | 2022-09-25 10:27 | PCM.DC.SUM ---
Providers Date of Admission: 09/22/22 Date of Discharge: 09/25/22 Primary Care Physician: Dr. Virginie Lockhart MD Consultations 09/23/22 09:52 Consult: Team Cdl Driver / Pulmonary Medicine Routine Consulting Provider: Pulmonary Medicine lavern Marcus Reason for Consult: Pulm fibrosis. Admitted with worsening SOB EMERGENT Consult: No MD Notified: Yes Date Notified: 09/23/22 Time Notified: 09:52 Method of Notification: Text Reason For Visit: ACUTE ON CHRONIC HYPOXEMIC RESPIRATORY FAILURE Diagnosis Discharge Diagnosis (1) CHF (congestive heart failure): Status: Acute Code(s): I50.9 - Heart failure, unspecified Qualifiers: Heart failure type: diastolic Heart failure chronicity: acute on chronic Qualified Code(s): I50.33 - Acute on chronic diastolic (congestive) heart failure (2) Hypoxia: Status: Acute Code(s): R09.02 - Hypoxemia (3) Fibrosis, idiopathic pulmonary: Status: Chronic Code(s): J84.112 - Idiopathic pulmonary fibrosis (4) Interstitial lung disease: Status: Acute Code(s): J84.9 - Interstitial pulmonary disease, unspecified (5) Respiratory failure with hypoxia: Status: Acute Code(s): J96.91 - Respiratory failure, unspecified with hypoxia Qualifiers: Chronicity: acute on chronic Qualified Code(s): J96.21 - Acute and chronic respiratory failure with hypoxia (6) Acute on chronic respiratory failure with hypoxemia: Status: Chronic Code(s): J96.21 - Acute and chronic respiratory failure with hypoxia Plan 1. Acute on chronic respiratory failure with hypoxia secondary to acute exacerbation of his interstitial lung disease and acute on chronic heart failure with preserved ejection fraction. Patient was admitted in PCU with tachypnea, dyspnea at rest on Venturi mask. Shortness of breath is better since admission. Chest x-ray imaging reviewed which shows bilateral pulmonary venous congestion/pulmonary edema superimposed on chronic lung disease.. Mild/small pleural effusion most likely on left side. BNP of 1811.7. His BNP on 08/17/2022 was 1309.4. On home Bumex 1 mg p.o. daily. Started on Lasix 40 mg IV twice daily. Heart failure core measures including intake and output, fluid restriction less than 1500 mL, daily weight monitoring, kidney and electrolytes monitoring. Echocardiogram on 05/02/2022 showed EF of 60%. Gear Inspector consult requested. Patient follows outside forest fire equipment operator but was supposed to see Dr. Rogers. 09/24: Patient seen by forest fire equipment operator. Antibiotics discontinued seems more acute on chronic hypoxic respiratory failure. Patient had recent echo as mentioned above. Shortness of breath getting better on diuretic. 09/25: Patient shortness of breath has improved. Patient on 3 L of home oxygen, currently on baseline home oxygen. Hold her diuretic for 2 days and then repeat BMP and titrate the dose of diuretic accordingly. Patient might have to increase Bumex 1 mg twice daily. Pain cardiology office in 2 weeks. Patient has appointment within a month with his forest fire equipment operator Dr. Sandoval in [place] Hypertension Blood pressure is not within goal Home blood pressure medication continued. Trend blood pressure and adjust blood pressure medications. 09/25: Blood pressure systolic 112. Hydralazine dose decreased to 25 mg 3 times daily with holding parameter. Patient also on carvedilol 25 mg twice daily with holding parameters. Stage IIIb CKD Creatinine 1.85. Patient baseline creatinine runs around 1.85-2.16. Estimated creatinine clearance 32 mill per minute 09/24 creatinine 2.31. Increased from 1.8. BUN 58. Electrolytes in normal range. Decrease diuretic 40 mg IV daily. 09/25: Creatinine is at 2.3. Hold Lasix. Follow-up with furniture cleaner in 2 weeks. DVT prophylaxis Subcutaneous Lovenox Clinical Impression(s) from Imaging Studies Chest X-Ray 09/22/22 20:50 IMPRESSION: Interstitial prominence suggesting pulmonary edema. This may be superimposed on chronic lung disease. Question small effusions. Medications at Discharge Home Medications aspirin 81 mg chewable tablet 81 mg PO DAILY Heart 08/03/19 multivitamin with minerals 1 tab PO DAILY supplement 08/03/19 ascorbate calcium (vitamin C) 500 mg tablet 500 mg PO DAILY Check with primary doctor 09/28/20 atorvastatin 80 mg tablet 80 mg PO DAILY cholesterol lowering #90 tabs 11/30/21 ezetimibe 10 mg tablet 10 mg PO DAILY cholesterol #90 tabs 11/30/21 mecobalamin (vitamin B12) 10,000 mcg solution for injection 10,000 mcg IM QMONTH Check with primary doctor 08/14/22 nitroglycerin 0.4 mg sublingual tablet 0.4 mg sublingual PRN PRN Angina #25 tabs 08/14/22 amlodipine 10 mg tablet 10 mg PO DAILY Check with primary doctor 08/17/22 carvedilol 25 mg tablet 25 mg PO BID Check with primary doctor 08/17/22 doxazosin 4 mg tablet 4 mg PO QHS Check with primary doctor 08/17/22 sertraline 50 mg tablet 50 mg PO DAILY Check with primary doctor 08/17/22 bumetanide 1 mg tablet 1 mg PO BIDCM Check with primary doctor 30 days #60 tabs 09/25/22 ferrous sulfate 325 mg (65 mg iron) tablet (Feosol) 325 mg PO DAILY supplement 30 days #0 tabs 09/25/22 hydralazine 100 mg tablet 50 mg (1/2 x 100 mg) PO BID 90 days #270 tabs 09/25/22 sennosides 8.6 mg-docusate sodium 50 mg tablet (Stool Softener-Stimulant Laxative) 2 tab PO BID PRN PRN Constipation #0 tabs 09/25/22 Physical Exam Narrative Seen and examined. Patient has history of chronic interstitial lung disease. 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 Feels shortness of breath is better. Oxygen Physical exam General: Alert, Oriented x3, Cooperative HEENT: Atraumatic, PERRLA, EOMI, Normocephalic Oral: Oral mucosa moist. No Gingival or Mucosal Lesions/ Ulcerations Neck: Supple, No JVD, Negative Carotid Bruits Lungs: Air entry severely diminished. Fine inspiratory rales. No dyspnea at rest. Dyspnea on moderate exertion improved. Cardiovascular: Regular rate, Regular Rhythm, Normal S1, Normal S2, systolic murmur. Abdomen: Bowel Sounds Present, Soft, Non Tender, Non-Distended : No renal angle tenderness. No suprapubic tenderness. Extremities: No edema, Capillary Refill Less than 3 Seconds Skin: No rashes, No breakdown Musculoskeletal: No Tenderness to Palpation of Joints or Extremities. ROM intact. Neurological: Cranial nerves II-XII grossly intact, DTR 2+/4 and Symmetrical, Neuro grossly intact Psych/Mental Status: Normal Affect, Appropriate. Weight / BMI Weight Weight: 148 lb 12.992 oz Body Mass Index (BMI) 22.6 ABG / Lab / Microbiology Data 09/25/22 05:29 09/25/22 05:29 Laboratory: Laboratory Results - last 24 hr 09/24/22 13:19: Sodium 140, Potassium 4.1, Chloride 107, Carbon Dioxide 26.0, Anion Gap 7, BUN 58 H, Creatinine 2.31 H, Estim Creat Clear Calc 25.91, Est GFR (MDRD) Af Amer 35 L, Est GFR (MDRD) Non-Af 29 L, BUN/Creatinine Ratio 25.1 H, Glucose 101, Calcium 8.3 L 09/25/22 05:29: WBC 12.6 H, RBC 2.91 L, Hgb 8.7 L, Hct 27.5 L, MCV 94.5 H, MCH 29.9, MCHC 31.6 L, RDW Std Deviation 52.0 H, RDW Coeff of Lisa 15.3 H, Plt Count 219, MPV 10.1, Immature Gran % (Auto) 0.800, Neut % (Auto) 72.4 H, Lymph % (Auto) 14.8 L, Fannin % (Auto) 10.4 H, Eos % (Auto) 1.4, Baso % (Auto) 0.2, Absolute Neuts (auto) 9.1 H, Absolute Lymphs (auto) 1.86, Nucleated RBC % 0, Sodium 142, Potassium 4.1, Chloride 110 H, Carbon Dioxide 28.0, Anion Gap 4 L, BUN 59 H, Creatinine 2.31 H, Estim Creat Clear Calc 25.57, Est GFR (MDRD) Af Amer 35 L, Est GFR (MDRD) Non-Af 29 L, BUN/Creatinine Ratio 25.5 H, Glucose 91, Calcium 8.4 L D/C Instructions Discharge Diet: No restrictions Weight Bearing Status: Weight bearing as tolerated Call your doctor if you observe: Fever of 101 or Higher, Coldness, Increased Pain, Numbness or Tingling, Change in Color, Inability to urinate, Inability to have a bowel movement, Shortness of breath, Dizziness, Fainting spells, Swelling in the ankles, Chest pain, Prolonged hiccupping, Increased palpitations (irregular heartbeat) and Calf discomfort When: IN 2 WEEKS Meaningful Use Info Meaningful Use Diagnoses (Choose all that apply): None applicable Discharge Plan Admission Admit Date/Time: 09/22/22 22:32 Primary Reason for Your Visit: Acute on chronic hypoxic respiratory failure. Attending Provider: Luiz Lyons Primary Care Provider: Virginie Lockhart Consulting Providers: Real Terry; Simón Mo; Ian Rogers; Jeffrey Salas; David Sandoval; Aviva Hilario CARE ANALYST Instructions Additional Instructions / Restrictions: Advised BMP in 2 days on 09/27/2022 and follow with PCP to titrate the dose of diuretic, Bumex Discharge Orders/Prescriptions Prescriptions: New sennosides-docusate sodium [Stool Softener-Stimulant Laxat] 8.6-50 mg Tablet 2 tab PO BID PRN PRN (Reason: Constipation) Qty: 0 0RF Continued ascorbate calcium (vitamin C) 500 mg tablet 500 mg PO DAILY mecobalamin (vitamin B12) 10,000 mcg recon soln 10,000 mcg IM QMONTH nitroglycerin 0.4 mg tablet, sublingual 0.4 mg SL PRN PRN (Reason: Angina) Qty: 25 3RF multivitamin with minerals 1 EACH tablet 1 tab PO DAILY aspirin 81 MG tablet,chewable 81 mg PO DAILY amlodipine 10 mg tablet 10 mg PO DAILY doxazosin 4 mg tablet 4 mg PO QHS carvedilol 25 mg tablet 25 mg PO BID sertraline 50 mg tablet 50 mg PO DAILY atorvastatin 80 mg tablet 80 mg PO DAILY Qty: 90 3RF ezetimibe 10 mg tablet 10 mg PO DAILY Qty: 90 3RF Changed hydralazine 100 mg tablet 50 mg PO BID 90 Days Qty: 270 3RF Rx Instructions: Hold for SBP less than 130 mmHg ferrous sulfate [Feosol] 325 mg (65 mg iron) tablet 325 mg PO DAILY 30 Days Qty: 0 0RF bumetanide 1 mg tablet 1 mg PO BIDCM 30 Days Qty: 60 0RF Rx Instructions: Hold for 2 days, repeat BMP and then start from 09/28/2022 Referrals / Follow Up: John Salter MD [Med Staff - Active Staff] - Within 1 Month Virginie Lockhart MD [Primary Care Provider] - Within 1 Week Gris Leal MD [Med Staff - Consulting] - Within 1 Month David Sandoval MD [Med Staff - Active Staff] - Within 1 Month Marcie Ball PA [Med Staff - Adv Practice Prof] - Within 2 Weeks (FOR Heart failure) Disposition Disposition (needs filled in before D/C Order can be placed): Home, Self Care Charges/Coding Visit Charges Inpatient E&M: 08157 Disch Hosp >30min
--- NOTE | 2022-09-25 10:49 | CASEMGMT ---
JEROD HART Follow-up: This JEROD HART met with pt at bedside to discuss discharge plan. Pt states his plan remains to return home with the support of his S.O. Pt states his S.O. will be able to assist him as needed and denied the need for home health SN services. Communication with Marlon from [facility] and pt can continue on this program at discharge. Pt remains agreeable to continuing in this program. Discussed home O2 and pt states he has been wearing his O2 at 3l/min at home. Communication with Chrissy with [facility] who states their script for pt's home O2 is 2l/min at hs into pap and 2l/min w/exertion. Per pt, pt's group dynamics instructor had set up pt's [employer]. Will contact Dr. Kimball's office to determine new O2 supplier. David Banerjee RN CM
--- NOTE | 2022-09-25 11:04 | CASEMGMT ---
Addendum entered and electronically signed by Jackie Banerjee RN 09/25/22 12:10: Pt's home concentrator and [employer] will provide for current O2 needs. Will follow-up with Dr. Kimball's office to determine need for new script as able based on their return call. David Banerjee RN CM Original Note: JEROD HART: Call placed to Dr. Kimball's office and voicemail received. Message left requesting a return call with pt's O2 liter flow and [employer] supplier's name. David Banerjee RN CM
--- NOTE | 2022-09-25 12:16 | PHA.DC.MR.R ---
Pharmacy [place] Med Reconciliation Pharmacy Service has performed discharge medication reconciliation for this patient. The patient's discharge medication list was reviewed for discrepancies and discrepancies were resolved. Medications at Discharge Home Medications aspirin 81 mg chewable tablet 81 mg PO DAILY Heart 08/03/19 multivitamin with minerals 1 tab PO DAILY supplement 08/03/19 ascorbate calcium (vitamin C) 500 mg tablet 500 mg PO DAILY Check with primary doctor 09/28/20 atorvastatin 80 mg tablet 80 mg PO DAILY cholesterol lowering #90 tabs 11/30/21 ezetimibe 10 mg tablet 10 mg PO DAILY cholesterol #90 tabs 11/30/21 mecobalamin (vitamin B12) 10,000 mcg solution for injection 10,000 mcg IM QMONTH Check with primary doctor 08/14/22 nitroglycerin 0.4 mg sublingual tablet 0.4 mg sublingual PRN PRN Angina #25 tabs 08/14/22 amlodipine 10 mg tablet 10 mg PO DAILY Check with primary doctor 08/17/22 carvedilol 25 mg tablet 25 mg PO BID Check with primary doctor 08/17/22 doxazosin 4 mg tablet 4 mg PO QHS Check with primary doctor 08/17/22 sertraline 50 mg tablet 50 mg PO DAILY Check with primary doctor 08/17/22 bumetanide 1 mg tablet 1 mg PO BIDCM Check with primary doctor 30 days #60 tabs 09/25/22 ferrous sulfate 325 mg (65 mg iron) tablet (Feosol) 325 mg PO DAILY supplement 30 days #0 tabs 09/25/22 hydralazine 100 mg tablet 50 mg (1/2 x 100 mg) PO BID 90 days #270 tabs 09/25/22 sennosides 8.6 mg-docusate sodium 50 mg tablet (Stool Softener-Stimulant Laxative) 2 tab PO BID PRN PRN Constipation #0 tabs 09/25/22
== END 2022-09-25 13:37 | disposition home or self-care (01) | DRG 291 ==
LOC: ED 22:34 → PCU 23:02
PROVIDERS: Physician Assistant; Admitting Provider Hospitalist; Emergency Provider Emergency Medicine; PCP Internal Medicine; Visit Provider Internal Medicine
DX: I13.0 Hypertensive heart and chronic kidney disease with heart failure and stage 1 through stage 4 chronic kidney disease, or unspecified chronic kidney disease (principal); J96.21 Acute and chronic respiratory failure with hypoxia; I50.33 Acute on chronic diastolic (congestive) heart failure; I27.21 Secondary pulmonary arterial hypertension; J84.112 Idiopathic pulmonary fibrosis; D63.1 Anemia in chronic kidney disease; N18.32 Chronic kidney disease, stage 3b; I25.10 Atherosclerotic heart disease of native coronary artery without angina pectoris; E78.5 Hyperlipidemia, unspecified; G47.33 Obstructive sleep apnea (adult) (pediatric); Z99.81 Dependence on supplemental oxygen; Z79.82 Long term (current) use of aspirin; Z79.899 Other long term (current) drug therapy; Z91.199 Patient's noncompliance with other medical treatment and regimen due to unspecified reason; Z87.891 Personal history of nicotine dependence; Z95.1 Presence of aortocoronary bypass graft
CPT/HCPCS: 36415; 71046; 80048; 83880; 84484; 85025; 93005; 94640; 94668; 99252; 99285; J7040; A4216; G0463; J1940

== ENCOUNTER → 2022-10-11 | Outpatient (CLI) | payer MEDICARE, OTHER, SELFPAY ==
[2022-10-11 12:23] LABS: Absolute Lymphocyte Count 1.09 X10^3/uL (0.83-4.51); Absolute Neutrophil Count 6.2 X10^3/uL (2.0-7.7); Basophil# 0.06 X10^3/uL; Basophil% 0.7 % (0-1); Eosinophil# 0.42 X10^3/uL; Hematocrit 28.2 % (40-54); Hemoglobin 8.8 g/dL (13.0-16.5); Lymphocyte # 1.09 X10^3/ul (0.83-4.51); Lymphocyte % 12.9 % (19-41); Mean Corp Hgb Conc 31.2 g/dL (32-36); Mean Corpuscular Hgb 29.2 pg (27.0-32.0); Mean Corpuscular Volume 93.7 fL (80-94); Mean Platelet Vol. 10.4 fl (6.2-12.0); Monocyte# 0.66 X10^3/uL; Monocyte% 7.8 % (0-10); NRBC Flagged by Analyzer 0 % (0-5); Neutrophil # 6.18 X10^3/uL (2.7-7.7); Neutrophil % 73.4 % (47-70); Platelet Count 240 K/mm3 (150-450); RBC Distribution Width CV 15.4 % (11.6-14.6); RBC Distribution Width SD 52.5 fl (35.1-43.9); Red Blood Count 3.01 M/mm3 (4.6-6.2); White Blood Count 8.4 K/mm3 (4.4-11.0)
[2022-10-11 12:38] LABS: Vitamin B12 1871 pg/mL (211-911)
[2022-10-11 12:43] LABS: Anion Gap 6 (5-15); BUN 48 mg/dL (7-18); BUN/Creat Ratio 22.7 RATIO (10-20); Calcium,Total 8.6 mg/dL (8.5-10.1); Chloride 109 mmol/L (98-107); Creatinine, Serum 2.11 mg/dL (0.70-1.30); EST Glomerular Filtration Rate 33 mL/min (>60); Est Glom Filt Rate - Afr Amer 39 mL/min (>60); Ferritin 170 ng/mL (26-388); Glucose 95 mg/dL (74-106); Iron 34 ug/dL (65-175); Iron Binding Capacity,Total 168 ug/dL (250-450); PSA,Total - Annual Screen 1.91 ng/mL (0.00-4.00); Potassium 4.4 mmol/L (3.5-5.1); Sodium Level 142 mmol/L (136-145)
== END | disposition home or self-care (01) ==
LOC: BIMLAB 09:53
PROVIDERS: PCP Internal Medicine; Referring Provider Internal Medicine; Visit Provider Internal Medicine
DX: N18.9 Chronic kidney disease, unspecified (principal); D63.1 Anemia in chronic kidney disease; N40.0 Benign prostatic hyperplasia without lower urinary tract symptoms; I12.9 Hypertensive chronic kidney disease with stage 1 through stage 4 chronic kidney disease, or unspecified chronic kidney disease
CPT/HCPCS: 36415; 80048; 82607; 82728; 83540; 83550; 84153; 85025; G0103

== ENCOUNTER → 2022-11-02 | Outpatient (CLI) | payer MEDICARE, OTHER, SELFPAY ==
[2022-11-02 12:37] LABS: Protein, Urine (Random) 50.4 mg/dL (<11.9); Protein:Creat Ratio 529 mg/g CRE (0-200)
[2022-11-02 13:18] LABS: Anion Gap 8 (5-15); BUN 53 mg/dL (7-18); Calcium,Total 8.5 mg/dL (8.5-10.1); Chloride 106 mmol/L (98-107); Creatinine, Serum 2.65 mg/dL (0.70-1.30); EST Glomerular Filtration Rate 25 mL/min (>60); Est Glom Filt Rate - Afr Amer 30 mL/min (>60); Glucose 127 mg/dL (74-106); Potassium 4.7 mmol/L (3.5-5.1); Sodium Level 140 mmol/L (136-145)
== END | disposition home or self-care (01) ==
LOC: BIMLAB 11:03
PROVIDERS: PCP Internal Medicine; Referring Provider Internal Medicine Nephrology; Visit Provider Internal Medicine Nephrology
DX: N18.32 Chronic kidney disease, stage 3b (principal)
CPT/HCPCS: 36415; 80048; 82570; 84156

== ENCOUNTER 2022-11-09 16:38 | Inpatient (IN) | payer MEDICARE, OTHER, SELFPAY ==
[2022-11-09] VITALS (19 sets, daily range): BP systolic 150–175; BP diastolic 53–111; PULSE 70–83; RESP 18–28; TEMP 36.4–37; O2SAT 64–100; BMI 24.3; BMI 23.8
--- NOTE | 2022-11-09 16:44 | EKG12_ITS ---
Test Reason : SOB Blood Pressure : / mmHG Vent. Rate : 069 BPM Atrial Rate : 069 BPM P-R Int : 212 ms QRS Dur : 108 ms QT Int : 444 ms P-R-T Axes : 058 047 228 degrees QTc Int : 475 ms Sinus rhythm with 1st degree A-V block with Premature atrial complexes Incomplete left bundle branch block Left ventricular hypertrophy with repolarization abnormality ( Sokolow-Connolly , Romhilt-Lamb ) Abnormal ECG Confirmed by KAYODE DIAZ, SUNG ([id number]), editorial project manager CALLIE AGUILAR ([id number]) on 11/19/2022 6:55:15 AM Referred By: Confirmed By:SUNG HEADLEY MD
--- NOTE | 2022-11-09 16:45 | EDS_ITS ---
HPI History of Present Illness Chief Complaint: Shortness of Breath Informant: patient Narrative Narrative: Patient is 77-year-old male with history of pulmonary fibrosis (on 5 L of nasal cannula oxygen at baseline), hypertension, bilateral carotid artery stenosis, proximal atrial flutter, chronic diastolic heart failure, coronary artery disease status post CABG in 2012, obstructive sleep apnea (denies use of CPAP) and CKD 3 presenting with increased shortness of breath. Patient states his symptoms really started yesterday evening. States he has had increased sputum production today. His concentrator at home does not go above 5 L and family could not get his O2 saturation above 80% so they came to the emergency room. Patient denies any chest pain or pressure. Denies any recent swelling of his legs. Just reports being more short of breath. Denies any runny nose, nasal congestion, fever or chills. Denies any sick contacts. No other complaints or concerns at this time [facility] Medical History (Updated 11/10/22 @ 00:[address] Nydia Marie, DO) Anemia in chronic kidney disease (CKD) Anxiety Arthritis Arthritis Atherosclerosis of coronary artery of [place] heart without angina pectoris Atrial fibrillation Bilateral carotid artery stenosis CHF (congestive heart failure) Chronic cough Chronic diastolic (congestive) heart failure Chronic kidney disease, stage 3 Coronary artery disease CVA (cerebral vascular accident) Depression Diarrhea Diverticulitis Elevated troponin (04/07/19) Essential (primary) hypertension Flu vaccine need Former smoker Generalized anxiety disorder GERD (gastroesophageal reflux disease) Gout Hemoptysis Hyperlipidemia Hypertension Hypoxia Hypoxia Increased sputum production Interstitial lung disease Kidney disease On home oxygen therapy FRANCISCO JAVIER (obstructive sleep apnea) Paroxysmal atrial flutter Peripheral vascular occlusive disease Pleural effusion due to CHF (congestive heart failure) (08/27/19) PND (post-nasal drip) Renal artery stenosis Respiratory failure with hypoxia Secondary pulmonary arterial hypertension Stage III chronic kidney disease Stenosis of left subclavian artery Transient ischemic attack Varicose veins of both lower extremities Home Medications aspirin 81 mg chewable tablet 81 mg PO QHS Heart 08/03/19 [History Last Taken 08/24/19] ascorbate calcium (vitamin C) 500 mg tablet 500 mg PO DAILY Check with primary doctor 09/28/20 [History Last Taken Unknown] nitroglycerin 0.4 mg sublingual tablet 0.4 mg sublingual PRN PRN Angina #25 tabs 08/14/22 [Rx Last Taken Unknown] amlodipine 10 mg tablet 10 mg PO DAILY Check with primary doctor 08/17/22 [History Last Taken Unknown] carvedilol 25 mg tablet 25 mg PO BID Check with primary doctor 08/17/22 [History Last Taken Unknown] doxazosin 4 mg tablet 4 mg PO QHS Check with primary doctor 08/17/22 [History Last Taken Unknown] bumetanide 1 mg tablet 1 mg PO BIDCM Check with primary doctor 30 days #60 tabs 09/25/22 [Rx Last Taken Unknown] ferrous sulfate 325 mg (65 mg iron) tablet (Feosol) 325 mg PO DAILY supplement 30 days #0 tabs 09/25/22 [Rx Last Taken Unknown] hydralazine 100 mg tablet 100 mg PO TID 10/12/22 [History Last Taken Unknown] sertraline 50 mg tablet 50 mg PO DAILY Check with primary doctor #90 tabs 10/30/22 [Rx Last Taken Unknown] atorvastatin 80 mg tablet 80 mg PO QHS cholesterol lowering 11/09/22 [History Last Taken Unknown] ezetimibe 10 mg tablet 10 mg PO QHS cholesterol 11/09/22 [History Last Taken Unknown] lisinopril 40 mg tablet 40 mg PO DAILY 11/09/22 [History Last Taken 11/09/22] Allergy/AdvReac Type Severity Reaction Status Date / Time No Known Allergies Allergy Verified 10/15/22 08:42 Family History Son CAD (coronary artery disease) Brother CAD (coronary artery disease) Diabetes Brother CAD (coronary artery disease) Diabetes Other Anemia Arthritis CVA (cerebral vascular accident) Hyperlipemia Hypertension Kidney disease Skin cancer Surgical History H/O basal cell carcinoma excision (09/2018) H/O colonoscopy H/O coronary artery bypass surgery (08/14/12) History of angioplasty of peripheral vessel History of herniorrhaphy History of knee replacement History of left common carotid artery stent placement (2003) History of left heart catheterization (08/13/12) History of right-sided carotid endarterectomy (05/2016) History of stent insertion of renal artery (10/01/19) Social History Smoking Status: Former smoker Tobacco: How many years used: 15 how long ago did patient quit smokin second hand exposure: No alcohol intake: current alcohol intake frequency: holidays/special occasions only substance use type: does not use caffeine: Yes ROS ROS ED Constitutional Constitutional ED: Denies chills or fever(s) Eyes Eyes: Denies change in vision ENT ENT ED: Denies ear pain, rhinorrhea or sore throat Cardiovascular Cardiovascular: Denies chest pain or palpitations Respiratory/Chest Respiratory/Chest: Reports cough, dyspnea and dyspnea on exertion Gastrointestinal Gastrointestinal: Denies abdominal pain, nausea or vomiting Musculoskeletal Musculoskeletal: Denies arthralgias or myalgias Integumentary Denies rash Neurologic Neurologic: Denies headache(s) Hematologic/Lymphatic Hematologic/Lymphatic: Denies easy bleeding or easy bruising EXAM Physical Exam Const Vital Signs: 11/09/22 16:39 11/09/22 16:41 11/09/22 16:43 Temperature 97.6 F L Temperature Source Temporal Pulse Rate 83 Respiratory Rate 19 H 19 H Respiratory Effort Short of Breath Labored Respiratory Depth Normal Respiratory Pattern Tachypnea Blood Pressure 150/111 H Blood Pressure Mean 124 Pulse Ox 64 91 Oxygen Delivery Method Nasal Cannula Non-Rebreather Oxygen Flow Rate (L/min) 6 15 11/09/22 16:40 11/09/22 16:55 11/09/22 17:40 Temperature 98.6 F 98.6 F Temperature Source Temporal Temporal Pulse Rate 75 76 74 Respiratory Rate 27 H 18 22 H Respiratory Effort Respiratory Depth Respiratory Pattern Normal Blood Pressure 175/54 H 156/57 H Blood Pressure Mean 94 90 Pulse Ox 100 92 Oxygen Delivery Method Non-Rebreather High Flow Oxygen Flow Rate (L/min) 8 11/09/22 17:13 11/09/22 17:15 11/09/22 17:20 Temperature Temperature Source Pulse Rate 75 71 71 Respiratory Rate 28 H 24 H 22 H Respiratory Effort Respiratory Depth Respiratory Pattern Blood Pressure 173/59 H Blood Pressure Mean 91 Pulse Ox 94 93 97 Oxygen Delivery Method High Flow High Flow Oxygen Flow Rate (L/min) 11 9 11/09/22 17:30 11/09/22 17:40 11/09/22 17:46 Temperature Temperature Source Pulse Rate 72 70 70 Respiratory Rate 22 H 21 H 22 H Respiratory Effort Respiratory Depth Respiratory Pattern Blood Pressure 160/56 H Blood Pressure Mean 88 Pulse Ox 95 96 96 Oxygen Delivery Method Oxygen Flow Rate (L/min) 11/09/22 17:50 11/09/22 18:00 Temperature Temperature Source Pulse Rate 71 75 Respiratory Rate 19 H 20 H Respiratory Effort Respiratory Depth Respiratory Pattern Blood Pressure 161/104 H Blood Pressure Mean 123 Pulse Ox 96 92 Oxygen Delivery Method High Flow Oxygen Flow Rate (L/min) 7 Positive well nourished and well developed General Appearance ED: well developed and NAD; Negative for pallor HEENT Reports moist mucous membranes atraumatic Eyes PERRL and EOMs intact bilaterally Neck supple and no JVD Resp Resp Narrative: Mild tachypnea. No significant conversational dyspnea. Coarse breath sounds throughout, slightly more increased on the left side compared to the left. No significant wheezing. Cardio regular rate, regular rhythm and no murmurs GI non-tender and non-distended Auscultation: normoactive bowel sounds Palpation: soft; Negative for tender Extremity normal to inspection General Extremety ED: Negative for edema General Extremity: Negative for edema Neuro oriented x3 Sensorium / Orientation: alert Motor Exam: Negative for general weakness Psych mental status grossly normal Skin no wounds General Skin Exam: Negative for pallor MDM MDM MDM Narrative Medical decision making narrative: Patient is evaluated for acute respiratory distress. He has significant hypoxic upon arrival (64% on 6 L with good waveform). Is placed on a nonrebreather and slowly increases to 100%. We will try to wean him down with high flow nasal cannula. He has coarse breath sounds. We will give a DuoNeb and some gentle IV fluid as well as 125 mg Solu-Medrol. Clinically does not appear fluid overloaded. Differential includes COPD exacerbation, exacerbation of pulmonary fibrosis, pneumonia and less likely CHF exacerbation. Patient is weaned down to 10 to 8 L high flow nasal cannula. He does have a mild leukocytosis.Patient is anemic with a hemoglobin 8.7 but this appears s table and more chronic. He has an elevation of his BUN and creatinine but this is also his baseline. Patient is mildly hyperglycemic. His BNP is up trending and his high-sensitivity troponin is normal. Lower suspicion for ACS as the cause of his symptoms. His chest x-ray interpreted by myself as well as radiology shows improvement from prior study but does show congestive heart failure with pulmonary edema and probable small effusions. While its possible patient might be fluid overloaded clinically patient seems to be more of either infectious etiology versus COPD exacerbation. Is given IV Solu-Medrol, Rocephin and azithromycin. I did give a dose of IV Lasix as he does have chest x-ray Wayne with CHF as well as an elevation of his BNP with increased O2 requirements. Regardless patient will require admission. Patient and family agreeable with this plan of care. Patient does stabilize with the ER and at this time stable for the PCU. History & Record Review Discussion w/independent historian: Patient and Family Lab Data Attestation: I reviewed the patient's lab results. Labs: Laboratory Results - last 24 hr 11/09/22 16:42 WBC 13.0 H RBC 3.10 L Hgb 8.7 L Hct 28.7 L MCV 92.6 MCH 28.1 MCHC 30.3 L RDW Std Deviation 55.4 H RDW Coeff of Lisa 16.3 H Plt Count 217 MPV 10.5 Immature Gran % (Auto) 0.600 Neut % (Auto) 82.3 H Lymph % (Auto) 8.3 L Humphreys % (Auto) 6.8 Eos % (Auto) 1.6 Baso % (Auto) 0.4 Absolute Neuts (auto) 10.7 H Absolute Lymphs (auto) 1.07 Nucleated RBC % 0 Sodium 138 Potassium 4.4 Chloride 106 Carbon Dioxide 24.0 Anion Gap 8 BUN 54 H Creatinine 2.58 H Estim Creat Clear Calc 23.20 Est GFR (MDRD) Af Amer 31 L Est GFR (MDRD) Non-Af 26 L BUN/Creatinine Ratio 20.9 H Glucose 184 H Calcium 8.9 B-Natriuretic Peptide 2343.9 H Radiography Diagnostic Testing: Clinical Impression(s) from Imaging Studies Chest X-Ray 11/09/22 17:06 IMPRESSION: Congestive heart failure with pulmonary edema and probable small effusions, significantly improved since prior study. Electronically Signed: Stephen Collado MD at 17:45 EDT , Rhythm Strip Rhythm Strip: Sinus Rhythm Rate: 69 Ectopy: None EKG Initial EKG: Attestation: I personally reviewed and interpreted this EKG as follows: Interpretation: Sinus Rhythm Comments: Normal sinus rhythm at a rate of 69 bpm with first IV block and PACs DC interval 212 Normal axis Normal QRS and QTc Incomplete left bundle giovani block LVH with repolarization abnormalities Compared to prior EKG no significant exchange operator Discussion w/another healthcare provider: Hospitalist Discharge Plan Dx/Rx/DC Orders Clinical Impression: Acute dyspnea, Stage III chronic kidney disease, Increased sputum production, Interstitial lung disease, Hypoxia, Leukocytosis Disposition Disposition: Acute Care Hospital [facility] Discharge Date/Time: 11/09/22 18:58
[2022-11-09] MEDS: Ipratropium/Albuterol Sulfate 3 ML AMPUL.NEB INHALATION (16:54)
[2022-11-09] MEDS: MethylPREDNISolone 125 MG/2 ML Vial IV (16:55)
[2022-11-09] MEDS: 0.9% Normal Saline (1000mL) 1,000 ML 150 ML IV (16:55)
[2022-11-09 16:59] LABS: Absolute Lymphocyte Count 1.07 X10^3/uL (0.83-4.51); Absolute Neutrophil Count 10.7 X10^3/uL (2.0-7.7); Basophil# 0.05 X10^3/uL; Basophil% 0.4 % (0-1); Eosinophil# 0.21 X10^3/uL; Eosinophils% 1.6 % (0-5); Hematocrit 28.7 % (40-54); Hemoglobin 8.7 g/dL (13.0-16.5); Lymphocyte # 1.07 X10^3/ul (0.83-4.51); Lymphocyte % 8.3 % (19-41); Mean Corp Hgb Conc 30.3 g/dL (32-36); Mean Corpuscular Hgb 28.1 pg (27.0-32.0); Mean Corpuscular Volume 92.6 fL (80-94); Mean Platelet Vol. 10.5 fl (6.2-12.0); Monocyte# 0.88 X10^3/uL; Monocyte% 6.8 % (0-10); NRBC Flagged by Analyzer 0 % (0-5); Neutrophil # 10.66 X10^3/uL (2.7-7.7); Neutrophil % 82.3 % (47-70); Platelet Count 217 K/mm3 (150-450); RBC Distribution Width CV 16.3 % (11.6-14.6); RBC Distribution Width SD 55.4 fl (35.1-43.9)
--- NOTE | 2022-11-09 17:06 | RAD_ITS ---
STUDY: X-RAY CHEST REASON FOR EXAM: Male, 77 years old. cough, SOB TECHNIQUE: Single AP portable view of the chest. COMPARISON: 09/20/2022. FINDINGS: There is diffuse hazy density and prominence of the bronchovascular markings in both lungs, most consistent with congestive failure and pulmonary edema.. Findings significantly improved since prior study. Possible atelectasis or infiltrate in the lung bases. Probable small bilateral effusions. There is mild cardiac enlargement. Previous CABG. Normal mediastinum and memo. There is prominence of the pulmonary hilar arteries and peripheral pulmonary arteries, consistent with congestive heart failure (CHF). Normal visualized aortic arch and descending thoracic aorta. Normal visualized thoracic spine. Normal visualized ribs, clavicles, and shoulders. There is no demonstrated abnormality of the visualized soft tissue structures of the upper abdomen. RAD/Chest 1 View (Portable) IMPRESSION: Congestive heart failure with pulmonary edema and probable small effusions, significantly improved since prior study. Electronically Signed: Stephen Collado MD at 17:45 EDT ,
[2022-11-09 17:14] LABS: Anion Gap 8 (5-15); BUN 54 mg/dL (7-18); BUN/Creat Ratio 20.9 RATIO (10-20); Calcium,Total 8.9 mg/dL (8.5-10.1); Chloride 106 mmol/L (98-107); Creatinine, Serum 2.58 mg/dL (0.70-1.30); EST Glomerular Filtration Rate 26 mL/min (>60); Est Glom Filt Rate - Afr Amer 31 mL/min (>60); Glucose 184 mg/dL (74-106); Potassium 4.4 mmol/L (3.5-5.1); Sodium Level 138 mmol/L (136-145)
[2022-11-09 17:29] LABS: BNP,B-Type NATRIURETIC PEPTIDE 2343.9 pg/mL (0-100)
--- NOTE | 2022-11-09 18:02 | PCM.HP.STD ---
HPI - General General Date of Admission: 11/09/22 Date of Service: 11/09/22 HPI Narrative EKTA CONWAY, is a 77 M who presents right. Patient has significant past history including pulmonary fibrosis with multiple admissions. Chest symptoms started couple of days prior to his admission. In addition to shortness of breath which was worse than his usual he did experience cough productive of eric brown sputum. Patient is on baseline oxygen 5 L at rest patient was found to be significantly hypoxic with oxygen saturation in the mid 60s upon arrival to the emergency department. Checks x-ray was read as vascular congestion did receive Lasix. Was also started on antibiotics and admitted to a monitored bed for further management FOR[facility]LY [facility], LATER [facility] Medical History Anemia in chronic kidney disease (CKD) Arthritis Arthritis Atherosclerosis of coronary artery of [place] heart without angina pectoris Bilateral carotid artery stenosis CHF (congestive heart failure) Chronic cough Chronic diastolic (congestive) heart failure Chronic kidney disease, stage 3 CVA (cerebral vascular accident) Diarrhea Diverticulitis Elevated troponin (04/07/19) Essential (primary) hypertension Flu vaccine need Generalized anxiety disorder GERD (gastroesophageal reflux disease) Gout Hemoptysis Hyperlipidemia Hypoxia Hypoxia Increased sputum production Interstitial lung disease FRANCISCO JAVIER (obstructive sleep apnea) Paroxysmal atrial flutter Peripheral vascular occlusive disease Pleural effusion due to CHF (congestive heart failure) (08/27/19) PND (post-nasal drip) Renal artery stenosis Respiratory failure with hypoxia Secondary pulmonary arterial hypertension Stage III chronic kidney disease Stenosis of left subclavian artery Transient ischemic attack Varicose veins of both lower extremities Home Medications aspirin 81 mg chewable tablet 81 mg PO QHS Heart 08/03/19 [History Last Taken 08/24/19] ascorbate calcium (vitamin C) 500 mg tablet 500 mg PO DAILY Check with primary doctor 09/28/20 [History Last Taken Unknown] nitroglycerin 0.4 mg sublingual tablet 0.4 mg sublingual PRN PRN Angina #25 tabs 08/14/22 [Rx Last Taken Unknown] amlodipine 10 mg tablet 10 mg PO DAILY Check with primary doctor 08/17/22 [History Last Taken Unknown] carvedilol 25 mg tablet 25 mg PO BID Check with primary doctor 08/17/22 [History Last Taken Unknown] doxazosin 4 mg tablet 4 mg PO QHS Check with primary doctor 08/17/22 [History Last Taken Unknown] bumetanide 1 mg tablet 1 mg PO BIDCM Check with primary doctor 30 days #60 tabs 09/25/22 [Rx Last Taken Unknown] ferrous sulfate 325 mg (65 mg iron) tablet (Feosol) 325 mg PO DAILY supplement 30 days #0 tabs 09/25/22 [Rx Last Taken Unknown] hydralazine 100 mg tablet 100 mg PO TID 10/12/22 [History Last Taken Unknown] sertraline 50 mg tablet 50 mg PO DAILY Check with primary doctor #90 tabs 10/30/22 [Rx Last Taken Unknown] atorvastatin 80 mg tablet 80 mg PO QHS cholesterol lowering 11/09/22 [History Last Taken Unknown] ezetimibe 10 mg tablet 10 mg PO QHS cholesterol 11/09/22 [History Last Taken Unknown] lisinopril 40 mg tablet 40 mg PO DAILY 11/09/22 [History Last Taken 11/09/22] Allergy/AdvReac Type Severity Reaction Status Date / Time No Known Allergies Allergy Verified 10/15/22 08:42 Family History Son CAD (coronary artery disease) Brother CAD (coronary artery disease) Diabetes Brother CAD (coronary artery disease) Diabetes Other Anemia Arthritis CVA (cerebral vascular accident) Hyperlipemia Hypertension Kidney disease Skin cancer Surgical History H/O basal cell carcinoma excision (09/2018) H/O colonoscopy H/O coronary artery bypass surgery (08/14/12) History of angioplasty of peripheral vessel History of herniorrhaphy History of knee replacement History of left common carotid artery stent placement (2003) History of left heart catheterization (08/13/12) History of right-sided carotid endarterectomy (05/2016) History of stent insertion of renal artery (10/01/19) Social History Smoking Status: Former smoker Tobacco: How many years used: 15 how long ago did patient quit smokin second hand exposure: No alcohol intake: current alcohol intake frequency: holidays/special occasions only substance use type: does not use caffeine: Yes ROS ROS Narrative GENERAL: denies fever, chills, night sweats, weight loss, anorexia HEENT: denies headache, sinus congestion, or drainage, dysphagia RESPIRATORY: cough, sputum production, shortness of breath, dyspnea on exertion CARDIAC: denies chest pain, palpitations, orthopnea, PND GASTROINTESTINAL: denies abdominal pain, nausea, vomiting, melena, GENITOURINARY: denies dysuria, urgency, frequency, heamaturia EXTREMITY: denies swelling MUSCULOSKELETAL: denies current joint pain or tenderness NEUROLOGIC: denies focal numbness, weakness, tingling HEMATOLOGIC: denies easy bruising and/or hemorrhage INTEGUMENT: denies rashes PSYCHIATRIC: denies suicidal or homicidal ideation Vital Signs Vital Signs Vital Signs: 11/09/22 16:39 11/09/22 16:41 11/09/22 16:43 Temperature 97.6 F L Temperature Source Temporal Pulse Rate 83 Respiratory Rate 19 H 19 H Respiratory Effort Short of Breath Labored Respiratory Depth Normal Respiratory Pattern Tachypnea Blood Pressure 150/111 H Blood Pressure Mean 124 Pulse Ox 64 91 Oxygen Delivery Method Nasal Cannula Non-Rebreather Oxygen Flow Rate (L/min) 6 15 11/09/22 16:40 11/09/22 16:55 11/09/22 17:13 Temperature 98.6 F Temperature Source Temporal Pulse Rate 75 76 75 Respiratory Rate 27 H 18 28 H Respiratory Effort Respiratory Depth Respiratory Pattern Normal Blood Pressure 175/54 H Blood Pressure Mean 94 Pulse Ox 100 94 Oxygen Delivery Method Non-Rebreather Oxygen Flow Rate (L/min) 11/09/22 17:15 11/09/22 17:20 Temperature Temperature Source Pulse Rate 71 71 Respiratory Rate 24 H 22 H Respiratory Effort Respiratory Depth Respiratory Pattern Blood Pressure 173/59 H Blood Pressure Mean 91 Pulse Ox 93 97 Oxygen Delivery Method High Flow High Flow Oxygen Flow Rate (L/min) 11 9 Weight Weight: 72.439 kg Body Mass Index (BMI) 24.3 Physical Exam Narrative GENERAL: Dyspneic at rest using accessory muscles in breathing HEENT: Atraumatic; normocephalic EYES; Anicteric, Normal Conjunctiva NECK; supple, normal thyroid, RESPIRATORY: Diminished to auscultation, tachypneic CARDIOVASCULAR: Regular S1 S2, GI: soft, normoactive bowel sounds, : No Renal angle tenderness; EXTREMITIES: No edema, no clubbing, MUSCULOSKELETAL: no muscle wasting NEURO: Awake; no lateralizing signs. SKIN: No Rash PSYCH; Flat affect Results Lab / Micro Data 11/09/22 16:42 11/09/22 16:42 Labs: Laboratory Results - last 24 hr 11/09/22 16:42: WBC 13.0 H, RBC 3.10 L, Hgb 8.7 L, Hct 28.7 L, MCV 92.6, MCH 28.1, MCHC 30.3 L, RDW Std Deviation 55.4 H, RDW Coeff of Lisa 16.3 H, Plt Count 217, MPV 10.5, Immature Gran % (Auto) 0.600, Neut % (Auto) 82.3 H, Lymph % (Auto) 8.3 L, [place] % (Auto) 6.8, Eos % (Auto) 1.6, Baso % (Auto) 0.4, Absolute Neuts (auto) 10.7 H, Absolute Lymphs (auto) 1.07, Nucleated RBC % 0, Sodium 138, Potassium 4.4, Chloride 106, Carbon Dioxide 24.0, Anion Gap 8, BUN 54 H, Creatinine 2.58 H, Estim Creat Clear Calc 23.20, Est GFR (MDRD) Af Amer 31 L, Est GFR (MDRD) Non-Af 26 L, BUN/Creatinine Ratio 20.9 H, Glucose 184 H, Calcium 8.9, B-Natriuretic Peptide 2343.9 H Micro: Microbiology 11/09/22 16:58 Nasal Secretion SARS-CoV-2 Antigen (Rapid) - Final Radiology Impression Chest X-Ray 11/09/22 17:06 IMPRESSION: Congestive heart failure with pulmonary edema and probable small effusions, significantly improved since prior study. Electronically Signed: Stephen Collado MD at 17:45 EDT , Assessment & Plan Assessment/Plan (1) Acute dyspnea: PLAN: Plan Patient is a 77-year-old gentleman with history of pulmonary fibrosis who presented with progressive shortness of breath 1. Acute on chronic hypoxic respiratory failure ? Patient has baseline chronic hypoxic respiratory failure secondary to pulmonary fibrosis for which patient is on 5 L at baseline. Patient was found to be saturating at 68% on 7 L with physical evidence of patient being in respiratory failure including tachypnea, hypoxia and unable to speak in full sentences. Patient hypoxia attributed to multiple factors including his pulmonary fibrosis suspected bronchitis and fluid overload from suspected congestive heart failure 2. Acute infectious bronchitis ? Admitted to monitored bed managed with supplemental oxygen steroid as well as bronchodilator treatment 3. Acute on chronic congestive heart failure with preserved ejection fraction ? Patient was placed on strict input and output, daily weight, fluid restriction as well as IV diuretics and supplemental oxygen as discussed above 4. Coronary artery disease ? With previous history of CABG 5. Carotid artery disease ? With history of right CEA in 2017 and left carotid stenting in 2003 6. Dyslipidemia -Patient is on statin therapy, continued at home dose 7. Hypertension - Blood pressure controlled, home medications continued with dose adjustment as needed 8. Paroxysmal A-fib/flutter ? Rate controlled patient was previously on systemic anticoagulation and had to be taken off not sure of the reasons 9. Obstructive sleep apnea ? On CPAP at night 10. Chronic hypoxic respiratory failure ? Secondary to patient pulmonary fibrosis on home oxygen 3 L at rest 11. Anemia - Secondary to chronic disorder monitoring H&H and transfuse if patient becomes symptomatic or hemoglobin falls below 7 12. DVT prophylaxis ? SC Lovenox Time spent in the patient's overall evaluation,decision-making process, review of diagnostic data, adjustment of management, discussion with other providers, nursing nursing and ancillary staff involved in patient's care documentation 78 Minutes Advance planning; did discuss with the patient and family regarding advanced directives as well as CODE STATUS. Did explain the various scenarios involved ( FULL CODE, DNR CCA, DNR CCA with no intubation, and DNR CC and what each meant) patient elected t full code with CPR and intubation if needed. Order was placed. Time spent on discussion 18 minutes. Charges/Coding Visit Charges Inpatient E&M: 40001 Init Hosp L3 Procedures Hospitalists Procedures: 56874 Advncd Care Plan 30 Min
[2022-11-09] MEDS: Furosemide 40 MG/4 ML Vial IV (18:09)
[2022-11-09] MEDS: Ceftriaxone 1 GM/50 ML BAG IV (18:09)
--- NOTE | 2022-11-09 18:24 | NURSING ---
PCU [facility] ACUTE HYPOXIC RESP FAILURE, COPD EXAC
[2022-11-09 20:22] LABS: Troponin-I HS 57 pg/mL (3.0-78.0)
[2022-11-09] MEDS: Azithromycin 500 MG in Dextrose 5%-Water (250mL Bag) 250 ML 250 MG IV (21:10)
--- NOTE | 2022-11-09 21:18 | RAD_ITS ---
STUDY: X-RAY CHEST REASON FOR EXAM: Male, 77 years old. COPD-496 TECHNIQUE: Single AP portable view of the chest. COMPARISON: Same day 5:09 PM. FINDINGS: Improved expansion of lungs since prior study. Grossly stable widespread pulmonary opacities most pronounced in the lower lobe. Overall no significant change since earlier today. Electronically Signed: Stephen Collado MD at 21:42 EDT , RAD/Chest PA and Lateral IMPRESSION: undefined
[2022-11-09 22:18] LABS: Troponin-I HS 69 pg/mL (3.0-78.0)
[2022-11-09] MEDS: hydrALAZINE 50 MG Tablet 100 MG PO (22:45)
[2022-11-09] MEDS: Doxazosin 4 MG Tablet PO (22:45)
[2022-11-09] MEDS: Aspirin 81 MG TAB.CHEW PO (22:45)
[2022-11-09] MEDS: Cefdinir 300 MG Capsule PO (22:46)
[2022-11-09] MEDS: Carvedilol 25 MG Tablet PO (22:46)
[2022-11-09] MEDS: guaiFENesin 1,200 MG Tablet 1200 MG PO (22:46)
[2022-11-09] MEDS: Ezetimibe 10 MG Tablet PO (22:46)
[2022-11-09] MEDS: Atorvastatin Calcium 80 MG Tablet PO (22:46)
[2022-11-10] VITALS (13 sets, daily range): BP systolic 126–139; BP diastolic 60–75; PULSE 64–74; RESP 18–20; TEMP 36.6–37.2; O2SAT 94–98
[2022-11-10 02:06] LABS: Absolute Lymphocyte Count 0.43 X10^3/uL (0.83-4.51); Absolute Neutrophil Count 5.5 X10^3/uL (2.0-7.7); Basophil# 0.01 X10^3/uL; Basophil% 0.2 % (0-1); Hematocrit 25.7 % (40-54); Hemoglobin 8.2 g/dL (13.0-16.5); Lymphocyte # 0.43 X10^3/ul (0.83-4.51); Lymphocyte % 7.2 % (19-41); Mean Corp Hgb Conc 31.9 g/dL (32-36); Mean Corpuscular Hgb 28.7 pg (27.0-32.0); Mean Corpuscular Volume 89.9 fL (80-94); Mean Platelet Vol. 9.8 fl (6.2-12.0); Monocyte# 0.04 X10^3/uL; Monocyte% 0.7 % (0-10); NRBC Flagged by Analyzer 0 % (0-5); Neutrophil # 5.48 X10^3/uL (2.7-7.7); Neutrophil % 91.6 % (47-70); POSITIVE DIFFERENTIAL YES; Platelet Count 178 K/mm3 (150-450); RBC Distribution Width CV 16.1 % (11.6-14.6); RBC Distribution Width SD 53.1 fl (35.1-43.9); Red Blood Count 2.86 M/mm3 (4.6-6.2)
[2022-11-10 02:10] LABS: Differential Indicated SCAN CRITERIA MET
[2022-11-10 02:37] LABS: Troponin-I HS 113 pg/mL (3.0-78.0)
[2022-11-10 02:39] LABS: Anion Gap 7 (5-15); BUN 55 mg/dL (7-18); BUN/Creat Ratio 22.5 RATIO (10-20); Calcium,Total 8.5 mg/dL (8.5-10.1); Chloride 105 mmol/L (98-107); Creatinine, Serum 2.44 mg/dL (0.70-1.30); EST Glomerular Filtration Rate 28 mL/min (>60); Est Glom Filt Rate - Afr Amer 33 mL/min (>60); Estimated Creatinine Clearance 24.53 ml/min; Glucose 163 mg/dL (74-106); Magnesium 2.9 mg/dL (1.6-2.6); Phosphorus 4.2 mg/dL (2.5-4.9); Potassium 4.7 mmol/L (3.5-5.1); Sodium Level 137 mmol/L (136-145)
[2022-11-10 02:57] LABS: Differential Comment SCANNED
[2022-11-10] MEDS: hydrALAZINE 50 MG Tablet 100 MG PO ×2 (04:54→22:00)
[2022-11-10] MEDS: 0.9% Saline Lock 10 ML Syringe IV ×2 (04:54→22:07)
--- NOTE | 2022-11-10 09:07 | PN.HOSP_ITS ---
Reason for Visit Reason for Visit: Diagnoses Dyspnea, unspecified (11/09/22) Subjective Subjective Patient is a 77-year-old gentleman with history of pulmonary fibrosis who presented with progressive shortness of breath Objective Data Objective Data Vital Signs: Vital Signs Temp Pulse Resp BP Pulse Ox O2 Del Method O2 Flow Rate 98.9 F 73 20 H 139/65 H 96 Airvo 45 11/10/22 04:40 11/10/22 04:54 11/10/22 04:40 11/10/22 04:40 11/10/22 04:47 11/10/22 04:47 11/10/22 04:47 FiO2 55 11/10/22 04:47 Oxygen Flow Rate (L/min) 45 Oxygen Delivery Method Airvo Weight: 70.9 kg Body Mass Index (BMI) 23.8 Intake & Output: Intake and Output for Last 24 Hours 11/08/22 11/09/22 11/10/22 23:59 23:59 23:59 Intake Total 1305 / 1305 400 / 400 Output Total 950 / 950 Balance 1305 / 505 -550 / -550 Lab / Micro Data 11/10/22 01:50 11/10/22 01:50 Labs: Laboratory Results - last 24 hr 11/09/22 16:42: WBC 13.0 H, RBC 3.10 L, Hgb 8.7 L, Hct 28.7 L, MCV 92.6, MCH 28.1, MCHC 30.3 L, RDW Std Deviation 55.4 H, RDW Coeff of Lisa 16.3 H, Plt Count 217, MPV 10.5, Immature Gran % (Auto) 0.600, Neut % (Auto) 82.3 H, Lymph % (Auto) 8.3 L, [place] % (Auto) 6.8, Eos % (Auto) 1.6, Baso % (Auto) 0.4, Absolute Neuts (auto) 10.7 H, Absolute Lymphs (auto) 1.07, Nucleated RBC % 0, Sodium 138, Potassium 4.4, Chloride 106, Carbon Dioxide 24.0, Anion Gap 8, BUN 54 H, Creatinine 2.58 H, Estim Creat Clear Calc 23.20, Est GFR (MDRD) Af Amer 31 L, Est GFR (MDRD) Non-Af 26 L, BUN/Creatinine Ratio 20.9 H, Glucose 184 H, Calcium 8.9, B-Natriuretic Peptide 2343.9 H 11/09/22 19:38: Troponin I High Sens 57 11/09/22 21:47: Troponin I High Sens 69 11/10/22 01:50: WBC 6.0, RBC 2.86 L, Hgb 8.2 L, Hct 25.7 L, MCV 89.9, MCH 28.7, MCHC 31.9 L D, RDW Std Deviation 53.1 H, RDW Coeff of Lisa 16.1 H, Plt Count 178, MPV 9.8, Immature Gran % (Auto) 0.300, Neut % (Auto) 91.6 H, Lymph % (Auto) 7.2 L, [place] % (Auto) 0.7, Eos % (Auto) 0.0, Baso % (Auto) 0.2, Absolute Neuts (auto) 5.5, Absolute Lymphs (auto) 0.43 L, Nucleated RBC % 0, Differential Comment SCANNED, Sodium 137, Potassium 4.7, Chloride 105, Carbon Dioxide 25.0, Anion Gap 7, BUN 55 H, Creatinine 2.44 H, Estim Creat Clear Calc 24.53, Est GFR (MDRD) Af Amer 33 L, Est GFR (MDRD) Non-Af 28 L, BUN/Creatinine Ratio 22.5 H, Glucose 163 H, Calcium 8.5, Phosphorus 4.2, Magnesium 2.9 H, Troponin I High Sens 113 H Micro: Microbiology 11/09/22 16:58 Nasal Secretion SARS-CoV-2 Antigen (Rapid) - Final Radiography Diagnostic Testing: Radiology Impression Chest X-Ray 11/09/22 17:06 IMPRESSION: Congestive heart failure with pulmonary edema and probable small effusions, significantly improved since prior study. Electronically Signed: Stephen Collado MD at 17:45 EDT , Chest X-Ray 11/09/22 21:18 IMPRESSION: undefined Rhythm Strip Rhythm Strip: Sinus Rhythm Rate: 69 Ectopy: None Physical Exam Narrative GENERAL: Dyspneic at rest using accessory muscles in breathing HEENT: Atraumatic; normocephalic EYES; Anicteric, Normal Conjunctiva NECK; supple, normal thyroid, RESPIRATORY: Diminished to auscultation, tachypneic CARDIOVASCULAR: Regular S1 S2, GI: soft, normoactive bowel sounds, : No Renal angle tenderness; EXTREMITIES: No edema, no clubbing, MUSCULOSKELETAL: no muscle wasting NEURO: Awake; no lateralizing signs. SKIN: No Rash PSYCH; Flat affect Assessment & Plan Assessment/Plan (1) Acute dyspnea: PLAN: Plan Patient is a 77-year-old gentleman with history of pulmonary fibrosis who presented with progressive shortness of breath 1. Acute on chronic hypoxic respiratory failure ? Patient has baseline chronic hypoxic respiratory failure secondary to pulmonary fibrosis for which patient is on 5 L at baseline. Patient was found to be saturating at 68% on 7 L with physical evidence of patient being in respiratory failure including tachypnea, hypoxia and unable to speak in full sentences. Patient hypoxia attributed to multiple factors including his pulmonary fibrosis suspected bronchitis and fluid overload from suspected congestive heart failure ? 11/10/2022 patient was placed on Airvo during the night 2. Acute infectious bronchitis ? Admitted to monitored bed managed with supplemental oxygen steroid as well as bronchodilator treatment 3. Acute on chronic congestive heart failure with preserved ejection fraction ? Patient was placed on strict input and output, daily weight, fluid restriction as well as IV diuretics and supplemental oxygen as discussed above ? 11/10/2022 patient is admitted in dose adjusted 4. Coronary artery disease ? With previous history of CABG 5. Carotid artery disease ? With history of right CEA in 2017 and left carotid stenting in 2003 6. Dyslipidemia -Patient is on statin therapy, continued at home dose 7. Hypertension - Blood pressure controlled, home medications continued with dose adjustment as needed 8. Paroxysmal A-fib/flutter ? Rate controlled patient was previously on systemic anticoagulation and had to be taken off not sure of the reasons 9. Obstructive sleep apnea ? On CPAP at night 10. Chronic hypoxic respiratory failure ? Secondary to patient pulmonary fibrosis on home oxygen 3 L at rest 11. Anemia - Secondary to chronic disorder monitoring H&H and transfuse if patient becomes symptomatic or hemoglobin falls below 7 12. DVT prophylaxis ? SC Lovenox Time spent in the patient's overall evaluation,decision-making process, review of diagnostic data, adjustment of management, discussion with other providers, nursing nursing and ancillary staff involved in patient's care documentation 50 minutes Charges/Coding Visit Charges Inpatient E&M: 00016 Subs Hosp L3
[2022-11-10] MEDS: Azithromycin 250 MG Tablet 500 MG PO (09:09)
[2022-11-10] MEDS: Ferrous Sulfate 325 MG Tablet PO (09:10)
[2022-11-10] MEDS: Sertraline 50 MG Tablet PO (09:10)
[2022-11-10] MEDS: guaiFENesin 1,200 MG Tablet 1200 MG PO ×2 (09:10→22:03)
[2022-11-10] MEDS: Cefdinir 300 MG Capsule PO ×2 (09:10→22:01)
[2022-11-10] MEDS: Carvedilol 25 MG Tablet PO ×2 (09:10→22:02)
[2022-11-10] MEDS: amLODIPine 10 MG Tablet PO (09:10)
[2022-11-10] MEDS: Ascorbic Acid 500 MG Tablet PO (09:11)
[2022-11-10] MEDS: Lisinopril 40 MG Tablet PO (09:11)
[2022-11-10] MEDS: Bumetanide 2 MG Tablet 1 MG PO (09:11)
[2022-11-10] MEDS: Bumetanide 2 MG Tablet PO ×2 (14:40→18:38)
--- NOTE | 2022-11-10 16:15 | CASEMGMT ---
RN?CM?GREETING CARD MAKER?CM?to room to meet with patient for initial transition planning/care coordination?assessment.?RN?CM?introduced self and role at [facility].? Pt voices understanding and consents to?assessment?at this time.? Pt resting in bed in no distress at this time.? Sig other, Rita, @ bedside and pt agreeable to her being present during assessment. Pt is A/O at this time and answers all questions appropriately.?? Care providers, pharmacy, and demographics verified/updated at this time. PCP: Dr Lockhart Specialists: Dr Castanon (cover mat machine operator), Dr Kimball (belt sander stone at [facility]), Dr Leal (digital marketing executive) Preferred Pharmacy: [facility] Insurance: [employer] ([email or web address]) A/B, [employer] Prescription Benefit:?yes Living Will/HPOA: yes, HPOA son Nick and sonBaudilio. LNOK: sons Nick and Baudilio Living Arrangements: Pt lives with his S.O. in a single story home with 1-2 steps to enter. Pt states he is independent with ADLs. S.O does most home mgnt tasks, but pt does help some. S.O manges pt's meds. They hire a mowing service for lawn care. Transportation: pt drives and denies any transportation concerns. Rita also drives. DME:nebulizer, pulse oximeter, and home O2. SO States pt had an Inogen through [employer] but belt sander stone arranged for pt to get a new Inogen G5 which came with a home concentrator also. S.O. states the new Inogen concentrator are being rented but from [employer] itself and not through [employer]. Inogen customber service # is: [phone]. S.O states pt's orders are for 3 l/m continuous. SO states concentrator goes up to 5 l/m and Inogen goes up to 6 l/m. SNF: No hx HHC: No hx of HHC but has had Pt Link program in the past. S.O states he just completed Pt Link about 2 weeks ago. Pt is not interested in having Pt Link program @ d/c. Pt declines wanting/needing HHC either and pt does not meet criteria for homebound status. Pt wishes to return home and states has no concerns with going home at time of discharge.? CM?to follow for any increase in home oxygen needs and any further discharge planning/needs.? Pt and SO voice no concerns/needs at this time.? Advised them to ask for?CM?if any further questions/concerns/needs arise.? The voice understanding. PLAN:??Home w/support of SO and discharge plans in place. Follow for possible increase in O2 needs @ d/c. Sunny BSN?RN?CM
[2022-11-10] MEDS: Aspirin 81 MG TAB.CHEW PO (21:59)
[2022-11-10] MEDS: Atorvastatin Calcium 80 MG Tablet PO (22:02)
[2022-11-10] MEDS: Ezetimibe 10 MG Tablet PO (22:03)
[2022-11-10] MEDS: Doxazosin 4 MG Tablet PO (22:04)
[2022-11-11] VITALS (19 sets, daily range): BP systolic 125–144; BP diastolic 43–83; PULSE 52–65; RESP 18; TEMP 36.1–36.6; O2SAT 82–100
[2022-11-11 06:31] LABS: Basophil# 0.01 X10^3/uL; Basophil% 0.1 % (0-1); Hemoglobin 7.3 g/dL (13.0-16.5); Lymphocyte % 7.1 % (19-41); Mean Corp Hgb Conc 30.4 g/dL (32-36); Mean Corpuscular Hgb 27.8 pg (27.0-32.0); Mean Corpuscular Volume 91.3 fL (80-94); Mean Platelet Vol. 10.8 fl (6.2-12.0); Monocyte# 0.33 X10^3/uL; Monocyte% 2.9 % (0-10); NRBC Flagged by Analyzer 0 % (0-5); Neutrophil # 10.04 X10^3/uL (2.7-7.7); Neutrophil % 89.4 % (47-70); Platelet Count 209 K/mm3 (150-450); RBC Distribution Width CV 16.3 % (11.6-14.6); RBC Distribution Width SD 53.8 fl (35.1-43.9); Red Blood Count 2.63 M/mm3 (4.6-6.2); White Blood Count 11.2 K/mm3 (4.4-11.0)
[2022-11-11 07:36] LABS: Anion Gap 10 (5-15); BUN 69 mg/dL (7-18); BUN/Creat Ratio 25.7 RATIO (10-20); Chloride 101 mmol/L (98-107); Creatinine, Serum 2.68 mg/dL (0.70-1.30); EST Glomerular Filtration Rate 25 mL/min (>60); Est Glom Filt Rate - Afr Amer 30 mL/min (>60); Estimated Creatinine Clearance 22.33 ml/min; Glucose 137 mg/dL (74-106); Potassium 4.6 mmol/L (3.5-5.1); Sodium Level 134 mmol/L (136-145)
--- NOTE | 2022-11-11 08:04 | PCM.PN.HOSP ---
Reason for Visit Reason for Visit: Diagnoses Dyspnea, unspecified (11/09/22) Subjective Subjective Hemoglobin continues to drop down to 7.3 from 8.2. Patient significant anemia may be contributing to his dyspnea. Did undertake iron studies. With patient deemed to be symptomatic an order was given for patient to be transfused with 1 unit PRBC Objective Data Objective Data Vital Signs: Vital Signs Temp Pulse Resp BP Pulse Ox O2 Del Method O2 Flow Rate 97.8 F 58 L 18 129/62 H 99 Airvo 45 11/11/22 03:30 11/11/22 06:11/11/22 03:30 11/11/22 06:11/11/22 03:30 11/11/22 05:11 11/11/22 05:11 FiO2 50 11/11/22 05:12 Oxygen Flow Rate (L/min) 45 Oxygen Delivery Method Airvo Weight: 70.9 kg Body Mass Index (BMI) 23.8 Intake & Output: Intake and Output for Last 24 Hours 11/09/22 11/10/22 11/11/22 23:59 23:59 23:59 Intake Total 1305 / 1305 1480 / 1480 Output Total 2575 / 2575 120 / 120 Balance 1305 / 505 -1095 / -1095 -120 / -120 Lab / Micro Data 11/11/22 05:50 11/11/22 05:50 Labs: Laboratory Results - last 24 hr 11/11/22 05:50: WBC 11.2 H, RBC 2.63 L, Hgb 7.3 L, Hct 24.0 L, MCV 91.3, MCH 27.8, MCHC 30.4 L, RDW Std Deviation 53.8 H, RDW Coeff of Lisa 16.3 H, Plt Count 209, MPV 10.8, Immature Gran % (Auto) 0.500, Neut % (Auto) 89.4 H, Lymph % (Auto) 7.1 L, [place] % (Auto) 2.9, Eos % (Auto) 0.0, Baso % (Auto) 0.1, Absolute Neuts (auto) 10.0 H, Absolute Lymphs (auto) 0.80 L, Nucleated RBC % 0, Sodium 134 L, Potassium 4.6, Chloride 101, Carbon Dioxide 23.0, Anion Gap 10, BUN 69 H, Creatinine 2.68 H, Estim Creat Clear Calc 22.33, Est GFR (MDRD) Af Amer 30 L, Est GFR (MDRD) Non-Af 25 L, BUN/Creatinine Ratio 25.7 H, Glucose 137 H, Calcium 8.0 L Micro: Microbiology 11/10/22 17:00 Nasal Secretion SARS-CoV-2 & FLU Antigen (Rapid) - Final 11/09/22 16:58 Nasal Secretion SARS-CoV-2 Antigen (Rapid) - Final Rhythm Strip Rhythm Strip: Sinus Rhythm Rate: 69 Ectopy: None Physical Exam Narrative GENERAL: Patient on Airvo HEENT: Atraumatic; normocephalic EYES; Anicteric, Normal Conjunctiva NECK; supple, normal thyroid, RESPIRATORY: Diminished to auscultation, tachypneic CARDIOVASCULAR: Regular S1 S2, GI: soft, normoactive bowel sounds, : No Renal angle tenderness; EXTREMITIES: No edema, no clubbing, MUSCULOSKELETAL: no muscle wasting NEURO: Awake; no lateralizing signs. SKIN: No Rash PSYCH; Flat affect Assessment & Plan Assessment/Plan (1) Acute dyspnea: PLAN: Plan Patient is a 77-year-old gentleman with history of pulmonary fibrosis who presented with progressive shortness of breath 1. Acute on chronic hypoxic respiratory failure ? Patient has baseline chronic hypoxic respiratory failure secondary to pulmonary fibrosis for which patient is on 5 L at baseline. Patient was found to be saturating at 68% on 7 L with physical evidence of patient being in respiratory failure including tachypnea, hypoxia and unable to speak in full sentences. Patient hypoxia attributed to multiple factors including his pulmonary fibrosis suspected bronchitis and fluid overload from suspected congestive heart failure ? 11/10/2022 patient was placed on Airvo during the night 2. Acute infectious bronchitis ? Admitted to monitored bed managed with supplemental oxygen steroid as well as bronchodilator treatment 3. Acute on chronic congestive heart failure with preserved ejection fraction ? Patient was placed on strict input and output, daily weight, fluid restriction as well as IV diuretics and supplemental oxygen as discussed above ? 11/10/2022 patient is admitted in dose adjusted 4. Anemia - Secondary to chronic disorder monitoring H&H and transfuse if patient becomes symptomatic or hemoglobin falls below 7 11/11/2022 7 hemoglobin continues to drop down to 7.3 from 8.2. Patient significant anemia may be contributing to his dyspnea. Did undertake iron studies. With patient deemed to be symptomatic an order was given for patient to be transfused with 1 unit PRBC 5. Coronary artery disease ? With previous history of CABG 6. Carotid artery disease ? With history of right CEA in 2016 and left carotid stenting in 2003 7. Dyslipidemia -Patient is on statin therapy, continued at home dose 8. Hypertension - Blood pressure controlled, home medications continued with dose adjustment as needed 9. Paroxysmal A-fib/flutter ? Rate controlled patient was previously on systemic anticoagulation 10. Obstructive sleep apnea ? On CPAP at night 11. Chronic hypoxic respiratory failure ? Secondary to patient pulmonary fibrosis on home oxygen 3 L at rest 12. DVT prophylaxis ? SC Lovenox ? 11/11/2022 Lovenox discontinued in view of patient's significant anemia Time spent in the patient's overall evaluation,decision-making process, review of diagnostic data, adjustment of management, discussion with other providers, nursing nursing and ancillary staff involved in patient's care documentation 50 minutes Charges/Coding Visit Charges Inpatient E&M: 49218 [facility] Hosp L3
[2022-11-11 09:40] LABS: Platelet Count 200 K/mm3 (150-450); RET-HE 27.7 pg (30-35)
[2022-11-11 09:57] LABS: Ferritin 159 ng/mL (26-388); Iron 36 ug/dL (65-175); Iron Binding Capacity,Total 196 ug/dL (250-450); PERCENT IRON SATURATION 18.4 % (15.0-55.0)
[2022-11-11] MEDS: predniSONE 20 MG Tablet 40 MG PO (10:39)
[2022-11-11] MEDS: guaiFENesin 1,200 MG Tablet 1200 MG PO ×2 (10:39→21:41)
[2022-11-11] MEDS: Cefdinir 300 MG Capsule PO ×2 (10:39→21:43)
[2022-11-11] MEDS: amLODIPine 10 MG Tablet PO (10:39)
[2022-11-11] MEDS: Ascorbic Acid 500 MG Tablet PO (10:39)
[2022-11-11] MEDS: Carvedilol 25 MG Tablet PO ×2 (10:39→21:43)
[2022-11-11] MEDS: Ferrous Sulfate 325 MG Tablet PO (10:40)
[2022-11-11] MEDS: Bumetanide 2 MG Tablet PO ×2 (10:40→18:24)
[2022-11-11] MEDS: Sertraline 50 MG Tablet PO (10:41)
[2022-11-11] MEDS: Lisinopril 40 MG Tablet PO (10:41)
[2022-11-11] MEDS: Azithromycin 250 MG Tablet 500 MG PO (10:42)
[2022-11-11] MEDS: 0.9% Saline Lock 10 ML Syringe IV (10:53)
[2022-11-11] MEDS: hydrALAZINE 50 MG Tablet 100 MG PO ×2 (14:36→21:40)
[2022-11-11] MEDS: Aspirin 81 MG TAB.CHEW PO (21:40)
[2022-11-11] MEDS: Atorvastatin Calcium 80 MG Tablet PO (21:41)
[2022-11-11] MEDS: Doxazosin 4 MG Tablet PO (21:42)
[2022-11-11] MEDS: Ezetimibe 10 MG Tablet PO (21:42)
[2022-11-12] VITALS (11 sets, daily range): BP systolic 130–146; BP diastolic 44–61; PULSE 57–69; RESP 18–20; TEMP 36.4–36.6; O2SAT 82–100
[2022-11-12 05:08] LABS: Absolute Lymphocyte Count 0.78 X10^3/uL (0.83-4.51); Basophil# 0.01 X10^3/uL; Basophil% 0.1 % (0-1); Eosinophil# 0.01 X10^3/uL; Eosinophils% 0.1 % (0-5); Hematocrit 25.7 % (40-54); Hemoglobin 8.1 g/dL (13.0-16.5); Lymphocyte # 0.78 X10^3/ul (0.83-4.51); Lymphocyte % 6.2 % (19-41); Mean Corp Hgb Conc 31.5 g/dL (32-36); Mean Corpuscular Hgb 28.1 pg (27.0-32.0); Mean Corpuscular Volume 89.2 fL (80-94); Mean Platelet Vol. 10.3 fl (6.2-12.0); Monocyte# 0.75 X10^3/uL; NRBC Flagged by Analyzer 0 % (0-5); Neutrophil # 10.95 X10^3/uL (2.7-7.7); Platelet Count 218 K/mm3 (150-450); RBC Distribution Width CV 16.3 % (11.6-14.6); RBC Distribution Width SD 52.9 fl (35.1-43.9); Red Blood Count 2.88 M/mm3 (4.6-6.2); White Blood Count 12.6 K/mm3 (4.4-11.0)
[2022-11-12 05:33] LABS: Anion Gap 9 (5-15); BUN 85 mg/dL (7-18); BUN/Creat Ratio 32.8 RATIO (10-20); Calcium,Total 7.6 mg/dL (8.5-10.1); Chloride 102 mmol/L (98-107); Creatinine, Serum 2.59 mg/dL (0.70-1.30); EST Glomerular Filtration Rate 26 mL/min (>60); Est Glom Filt Rate - Afr Amer 31 mL/min (>60); Estimated Creatinine Clearance 23.11 ml/min; Glucose 122 mg/dL (74-106); Potassium 4.3 mmol/L (3.5-5.1); Sodium Level 136 mmol/L (136-145)
[2022-11-12] MEDS: hydrALAZINE 50 MG Tablet 100 MG PO ×3 (06:01→21:45)
[2022-11-12] MEDS: Sertraline 50 MG Tablet PO (08:43)
[2022-11-12] MEDS: Azithromycin 250 MG Tablet 500 MG PO (08:43)
[2022-11-12] MEDS: Ascorbic Acid 500 MG Tablet PO (08:43)
[2022-11-12] MEDS: Ferrous Sulfate 325 MG Tablet PO (08:43)
[2022-11-12] MEDS: guaiFENesin 1,200 MG Tablet 1200 MG PO ×2 (08:43→21:42)
[2022-11-12] MEDS: Cefdinir 300 MG Capsule PO ×2 (08:43→21:46)
[2022-11-12] MEDS: Carvedilol 25 MG Tablet PO ×2 (08:43→21:44)
[2022-11-12] MEDS: amLODIPine 10 MG Tablet PO (08:44)
[2022-11-12] MEDS: predniSONE 20 MG Tablet 40 MG PO (08:44)
[2022-11-12] MEDS: Lisinopril 40 MG Tablet PO (08:54)
[2022-11-12] MEDS: Bumetanide 2 MG Tablet PO ×2 (09:06→17:34)
[2022-11-12 15:13] LABS: Vitamin B12 1064 pg/mL (211-911)
--- NOTE | 2022-11-12 16:55 | PCM.PN.HOSP ---
Reason for Visit Reason for Visit: Shortness of breath Subjective Subjective Mr. Zimmer is a 77-year-old white male who presented to the emergency department on 11/09/2022 with shortness of breath. He had multiple admissions previously for similar issues and has a history of pulmonary fibrosis. Patient reported that his chest symptoms started a couple days prior to presentation and he had cough with eric brown sputum. He is on oxygen at baseline and he reported being on 5 L at baseline however per discussion with case management he is really supposed to be on 2 L with exertion and nocturnally and none at rest at baseline. He was found to be significantly hypoxic with oxygen saturations in the mid 60s on arrival to the emergency department. Chest x-ray was read out as vascular congestion and he did receive Lasix. He was also started on antibiotics. His respiratory culture is currently showing a gram-negative melissa. Flu and COVID were negative on presentation. He is currently on azithromycin and oral cefdinir as well as oral prednisone 40 mg daily. On 11/11/2022 his hemoglobin was noted to drop from 8.2-7.3 and a Hemoccult was performed which was found to be positive. He was given 1 unit of packed red blood cells yesterday and his hemoglobin did correct appropriately and is up to 8.1 today. He is only on aspirin at baseline. Identification and sensitivities are pending on his cultures so I will maintain current antibiotic regimen as he is clinically improving per his report. Objective Data Objective Data Vital Signs: Vital Signs Temp Pulse Resp BP Pulse Ox O2 Del Method O2 Flow Rate 98 F 63 18 146/61 H 98 High Flow 5 11/12/22 14:30 11/12/22 14:34 11/12/22 14:30 11/12/22 14:34 11/12/22 14:30 11/12/22 14:45 11/12/22 14:45 FiO2 44 11/11/22 16:24 Oxygen Flow Rate (L/min) [ 5 AMBULATING with Oxygen #2] Oxygen Flow Rate (L/min) [ 4 AMBULATING with Oxygen #1] Oxygen Flow Rate (L/min) [At 3 REST with Oxygen] Oxygen Flow Rate (L/min) 5 Oxygen Delivery Method High Flow Weight: 70.9 kg Body Mass Index (BMI) 23.8 Intake & Output: Intake and Output for Last 24 Hours 09/11/2411/11/22 11/12/22 23:59 23:59 23:59 Intake Total 1480 / 1480 1600 / 1600 450 / 450 Output Total 2575 / 2575 1545 / 1545 200 / 200 Balance -1095 / -1095 55 / 55 250 / 250 Lab / Micro Data 11/12/22 04:50 11/12/22 04:50 Labs: Laboratory Results - last 24 hr 11/11/22 09:25: Vitamin B12 1064 H 11/12/22 04:50: WBC 12.6 H, RBC 2.88 L, Hgb 8.1 L, Hct 25.7 L, MCV 89.2, MCH 28.1, MCHC 31.5 L, RDW Std Deviation 52.9 H, RDW Coeff of Lisa 16.3 H, Plt Count 218, MPV 10.3, Immature Gran % (Auto) 0.600, Neut % (Auto) 87.0 H, Lymph % (Auto) 6.2 L, [place] % (Auto) 6.0, Eos % (Auto) 0.1, Baso % (Auto) 0.1, Absolute Neuts (auto) 11.0 H, Absolute Lymphs (auto) 0.78 L, Nucleated RBC % 0, Sodium 136, Potassium 4.3, Chloride 102, Carbon Dioxide 25.0, Anion Gap 9, BUN 85 H, Creatinine 2.59 H, Estim Creat Clear Calc 23.11, Est GFR (MDRD) Af Amer 31 L, Est GFR (MDRD) Non-Af 26 L, BUN/Creatinine Ratio 32.8 H, Glucose 122 H, Calcium 7.6 L Micro: Microbiology 11/10/22 10:50 Sputum, Expectorated/Coughed Gram Stain - Final 11/10/22 10:50 Sputum, Expectorated/Coughed Respiratory Culture - Preliminary Gram negative melissa 11/12/22 07:30 Stool Stool Occult Blood (LEONA) - Final Occult Blood Positive 11/10/22 17:00 Nasal Secretion SARS-CoV-2 & FLU Antigen (Rapid) - Final 11/09/22 16:58 Nasal Secretion SARS-CoV-2 Antigen (Rapid) - Final Rhythm Strip Rhythm Strip: Sinus Rhythm Rate: 69 Ectopy: None Physical Exam Const alert, oriented x3, no apparent distress, average body habitus and well nourished Constitutional Narrative: Very pleasant, older, white male, sitting in bed watching television, appears comfortable, currently on 5 L supplemental nasal cannula. HEENT head/scalp atraumatic, moist oral mucous membranes and oropharynx normal HEENT Narrative: No thrush, Mallampati 2 Resp normal respiratory effort, no retractions and no use of accessory muscles Resp Narrative: Diffusely diminished with few scattered crackles bilateral Auscultation: crackles; Negative for rhonchi or wheezes Cardio regular rate, regular rhythm, S1 normal heart sound, S2 normal heart sound, no murmurs, no rub, no gallops and no clicks GI normal to inspection, nondistended, normoactive bowel sounds, soft to palpation and non-tender Extremity no clubbing, cyanosis or edema Extremity Narrative: Pedal pulses are 2+ Neuro oriented x3, moves all extremities and no focal motor deficits Speech: speech normal Psych affect normal Psych Narrative: Eye contact is good, patient is very pleasant and interacts appropriately Assessment & Plan Assessment/Plan (1) Hypoxia: (2) Acute dyspnea: (3) Gram-negative pneumonia: (4) Leukocytosis: (5) GI bleed: PLAN: Plan Acute on chronic hypoxic respiratory failure secondary to gram-negative pneumonia -Per discussed with case management who has called with regards to his oxygen prescription he is to be on 2 L with exertion and at rest and is currently requiring 5 L -Wean as able and check home O2 eval for current needs -Continue azithromycin and cefdinir for now until we can further narrow if needed or broaden depending on sensitivities and identification -Anticipate results back within the next 24 hours and patient seems to be clinically improving -Continue aggressive pulmonary toilet we will add scheduled DuoNebs -Continue Mucinex -Add Pep therapy -Continue I-S -Continue oral steroids GI bleed -Hemoglobin drop and was given 1 unit packed red blood cells on 11/11/2022 -Guaiac positive -Start Protonix IV 40 mg twice daily -Continue oral iron -GI consultation for probable scope tomorrow History of pulmonary fibrosis -Doubt acute IPF flare -Recommend outpatient follow-up -Will need to evaluate further for oxygen requirements prior to discharge as I suspect he may need more than he is on -If worsens will consult pulmonary medicine Leukocytosis -Has trended up however patient is currently on steroids -We will continue to monitor as clinically he is improving Acute on chronic anemia -It appears that his baseline hemoglobin runs between 9 and 11 -Current hemoglobin 8.1 after 1 unit packed red blood cell -Was 7.3 yesterday -Repeat CBC in a.m. and transfuse for less than 7 -GI is consulted and plans on scoping tomorrow -Continue iron supplementation as ordered CKD stage IV -Baseline serum creatinine is between 2.2 and 2.6 -Currently 2.59 -Continue diuretics as ordered -Would recommend outpatient follow-up with nephrology if he is not already following -Continue home medications as ordered -BMP in a.m. CAD/carotid artery stenosis/hyperlipidemia/hypertension -CABG x 4: Sequential BALES-LAD and D1, SVG-OM1, SVG-RPDA 08/14/12 -CEA 2017 with left carotid artery stent in 2003 -Continue lisinopril 40 mg daily -Continue hydralazine 100 mg 3 times daily -continue carvedilol 25 mg twice daily -Continue Bumex 2 mg p.o. twice daily -Continue atorvastatin 80 mg nightly-continue amlodipine 10 mg daily BPH -Continue doxazosin Depression -Continue Zoloft DVT prophylaxis -SCDs -Hold chemoprophylaxis secondary to Hemoccult positive stool CODE STATUS Full code Charges/Coding Visit Charges Inpatient E&M: 38801 Subs Hosp L3
[2022-11-12] MEDS: 0.9% Saline Lock 10 ML Syringe IV ×2 (16:57→21:38)
[2022-11-12] MEDS: Sodium Ferric Gluconat/Sucrose 250 MG in 0.9% Normal Saline (250mL Bag) 250 ML 135 MG IV (17:01)
[2022-11-12] MEDS: Bisacodyl 5 MG Tablet 20 MG PO (17:34)
[2022-11-12] MEDS: Polyethylene Glycol 3350 BOWEL PREP PO (18:29)
--- NOTE | 2022-11-12 20:22 | EX.PCM.CON.G ---
HPI Consult Data Date of Consult: 11/12/22 HPI Narrative Reason for Consultation: Abdominal pain HPI Narrative: EKTA CONWAY, is a 77 M who presents with shortness of breath. He has a history of pulmonary fibrosis (on 5 L of nasal cannula oxygen at baseline), hypertension, bilateral carotid artery stenosis, proximal atrial flutter, chronic diastolic heart failure, coronary artery disease status post CABG in 2012, obstructive sleep apnea (denies use of CPAP) and CKD 3 presenting with increased shortness of breath. Patient states his symptoms really started yesterday evening. States he has had increased sputum production today. His concentrator at home does not go above 5 L and family could not get his O2 saturation above 80% so they came to the emergency room. Patient denies any chest pain or pressure. Denies any recent swelling of his legs. Just reports being more short of breath. Denies any runny nose, nasal congestion, fever or chills. Denies any sick contacts. No other complaints or concerns at this time. He has a [facility] Medical History (Updated 11/12/22 @ 20:[address] Mena Friend, DO) Anemia in chronic kidney disease (CKD) Anxiety Arthritis Arthritis Atherosclerosis of coronary artery of [place] heart without angina pectoris Atrial fibrillation Bilateral carotid artery stenosis CHF (congestive heart failure) Chronic cough Chronic diastolic (congestive) heart failure Chronic kidney disease, stage 3 Coronary artery disease CVA (cerebral vascular accident) Depression Diarrhea Diverticulitis Elevated troponin (04/07/19) Essential (primary) hypertension Flu vaccine need Former smoker Generalized anxiety disorder GERD (gastroesophageal reflux disease) Gout Hemoptysis Hyperlipidemia Hypertension Hypoxia Hypoxia Increased sputum production Interstitial lung disease Kidney disease On home oxygen therapy FRANCISCO JAVIER (obstructive sleep apnea) Paroxysmal atrial flutter Peripheral vascular occlusive disease Pleural effusion due to CHF (congestive heart failure) (08/27/19) PND (post-nasal drip) Renal artery stenosis Respiratory failure with hypoxia Secondary pulmonary arterial hypertension Stage III chronic kidney disease Stenosis of left subclavian artery Transient ischemic attack Varicose veins of both lower extremities Home Medications aspirin 81 mg chewable tablet 81 mg PO QHS Heart 08/03/19 [History Last Taken 08/24/19] ascorbate calcium (vitamin C) 500 mg tablet 500 mg PO DAILY Check with primary doctor 09/28/20 [History Last Taken Unknown] nitroglycerin 0.4 mg sublingual tablet 0.4 mg sublingual PRN PRN Angina #25 tabs 08/14/22 [Rx Last Taken Unknown] amlodipine 10 mg tablet 10 mg PO DAILY Check with primary doctor 08/17/22 [History Last Taken Unknown] carvedilol 25 mg tablet 25 mg PO BID Check with primary doctor 08/17/22 [History Last Taken Unknown] doxazosin 4 mg tablet 4 mg PO QHS Check with primary doctor 08/17/22 [History Last Taken Unknown] bumetanide 1 mg tablet 1 mg PO BIDCM Check with primary doctor 30 days #60 tabs 09/25/22 [Rx Last Taken Unknown] ferrous sulfate 325 mg (65 mg iron) tablet (Feosol) 325 mg PO DAILY supplement 30 days #0 tabs 09/25/22 [Rx Last Taken Unknown] hydralazine 100 mg tablet 100 mg PO TID 10/12/22 [History Last Taken Unknown] sertraline 50 mg tablet 50 mg PO DAILY Check with primary doctor #90 tabs 10/30/22 [Rx Last Taken Unknown] atorvastatin 80 mg tablet 80 mg PO QHS cholesterol lowering 11/09/22 [History Last Taken Unknown] ezetimibe 10 mg tablet 10 mg PO QHS cholesterol 11/09/22 [History Last Taken Unknown] lisinopril 40 mg tablet 40 mg PO DAILY 11/09/22 [History Last Taken 11/09/22] Allergy/AdvReac Type Severity Reaction Status Date / Time No Known Allergies Allergy Verified 10/15/22 08:42 Family History Son CAD (coronary artery disease) Brother CAD (coronary artery disease) Diabetes Brother CAD (coronary artery disease) Diabetes Other Anemia Arthritis CVA (cerebral vascular accident) Hyperlipemia Hypertension Kidney disease Skin cancer Surgical History H/O basal cell carcinoma excision (09/2018) H/O colonoscopy H/O coronary artery bypass surgery (08/14/12) History of angioplasty of peripheral vessel History of herniorrhaphy History of knee replacement History of left common carotid artery stent placement (2003) History of left heart catheterization (08/13/12) History of right-sided carotid endarterectomy (05/2016) History of stent insertion of renal artery (07/30/20) Social History Smoking Status: Former smoker Tobacco: How many years used: 15 how long ago did patient quit smokin second hand exposure: No alcohol intake: current alcohol intake frequency: holidays/special occasions only substance use type: does not use caffeine: Yes ROS ROS Narrative GENERAL: denies fever, chills, night sweats, weight loss, anorexia HEENT: denies headache, sinus congestion, or drainage, dysphagia RESPIRATORY: cough, sputum production, shortness of breath, dyspnea on exertion CARDIAC: denies chest pain, palpitations, orthopnea, PND GASTROINTESTINAL: denies abdominal pain, nausea, vomiting, melena, GENITOURINARY: denies dysuria, urgency, frequency, heamaturia EXTREMITY: denies swelling MUSCULOSKELETAL: denies current joint pain or tenderness NEUROLOGIC: denies focal numbness, weakness, tingling HEMATOLOGIC: denies easy bruising and/or hemorrhage INTEGUMENT: denies rashes PSYCHIATRIC: denies suicidal or homicidal ideation Physical Exam Const alert, oriented x3, no apparent distress, average body habitus and well nourished HEENT head/scalp atraumatic, moist oral mucous membranes and oropharynx normal HEENT Narrative: No thrush, Mallampati 2 Resp normal respiratory effort, no retractions and no use of accessory muscles Resp Narrative: Diffusely diminished with few scattered crackles bilateral Auscultation: crackles; Negative for rhonchi or wheezes Cardio regular rate, regular rhythm, S1 normal heart sound, S2 normal heart sound, no murmurs, no rub, no gallops and no clicks GI normal to inspection, nondistended, normoactive bowel sounds, soft to palpation and non-tender Extremity no clubbing, cyanosis or edema Extremity Narrative: Pedal pulses are 2+ Neuro oriented x3, moves all extremities and no focal motor deficits Speech: speech normal Psych affect normal Psych Narrative: Eye contact is good, patient is very pleasant and interacts appropriately Lab / Micro Data 11/12/22 04:50 11/12/22 04:50 Labs: Laboratory Results - last 24 hr 11/11/22 09:25: Vitamin B12 1064 H 11/12/22 04:50: WBC 12.6 H, RBC 2.88 L, Hgb 8.1 L, Hct 25.7 L, MCV 89.2, MCH 28.1, MCHC 31.5 L, RDW Std Deviation 52.9 H, RDW Coeff of Lisa 16.3 H, Plt Count 218, MPV 10.3, Immature Gran % (Auto) 0.600, Neut % (Auto) 87.0 H, Lymph % (Auto) 6.2 L, [place] % (Auto) 6.0, Eos % (Auto) 0.1, Baso % (Auto) 0.1, Absolute Neuts (auto) 11.0 H, Absolute Lymphs (auto) 0.78 L, Nucleated RBC % 0, Sodium 136, Potassium 4.3, Chloride 102, Carbon Dioxide 25.0, Anion Gap 9, BUN 85 H, Creatinine 2.59 H, Estim Creat Clear Calc 23.11, Est GFR (MDRD) Af Amer 31 L, Est GFR (MDRD) Non-Af 26 L, BUN/Creatinine Ratio 32.8 H, Glucose 122 H, Calcium 7.6 L Micro: Microbiology 11/10/22 10:50 Sputum, Expectorated/Coughed Gram Stain - Final 11/10/22 10:50 Sputum, Expectorated/Coughed Respiratory Culture - Preliminary Gram negative melissa 11/12/22 07:30 Stool Stool Occult Blood (LEONA) - Final Occult Blood Positive Rhythm Strip Rhythm Strip: Sinus Rhythm Rate: 69 Ectopy: None Assessment & Plan Assessment/Plan (1) GI bleed: (2) Anemia: PLAN: Plan Patient is a 77-year-old gentleman with history of pulmonary fibrosis who presented with progressive shortness of breath 1. Acute on chronic hypoxic respiratory failure ? Patient has baseline chronic hypoxic respiratory failure secondary to pulmonary fibrosis for which patient is on 5 L at baseline. Patient was found to be saturating at 68% on 7 L with physical evidence of patient being in respiratory failure including tachypnea, hypoxia and unable to speak in full sentences. Patient hypoxia attributed to multiple factors including his pulmonary fibrosis suspected bronchitis and fluid overload from suspected congestive heart failure ? 11/10/2022 patient was placed on Airvo during the night 2. Anemia The differential diagnosis for him would be a angiodysplastic lesions, Red erosions, Telangectasia, and less likely neoplasia. Also did the differential diagnosis would be celiac, disease, autoimmune, enteritis, Protein losing the neuropathy. He should undergo an EGD and colonoscopy and possible cab some task. This was explained to him and his in great detail today and they were OK with the plan. Charges/Coding Visit Charges Inpatient E&M: 13167 Init Hosp L3
[2022-11-12] MEDS: Ipratropium/Albuterol Sulfate 3 ML AMPUL.NEB INHALATION (20:40)
[2022-11-12] MEDS: Pantoprazole Sodium 40 MG in 0.9% Normal Saline (100mL MB+) 100 ML 330 MG IV (21:35)
[2022-11-12] MEDS: Aspirin 81 MG TAB.CHEW PO (21:43)
[2022-11-12] MEDS: Atorvastatin Calcium 80 MG Tablet PO (21:43)
[2022-11-12] MEDS: Doxazosin 4 MG Tablet PO (21:44)
[2022-11-12] MEDS: Ezetimibe 10 MG Tablet PO (21:49)
[2022-11-13] VITALS (17 sets, daily range): BP systolic 122–154; BP diastolic 40–66; PULSE 53–77; RESP 14–20; TEMP 36.5–37.2; O2SAT 91–100
[2022-11-13 05:11] LABS: Absolute Lymphocyte Count 0.82 X10^3/uL (0.83-4.51); Hematocrit 26.6 % (40-54); Hemoglobin 8.4 g/dL (13.0-16.5); Lymphocyte # 0.82 X10^3/ul (0.83-4.51); Lymphocyte % 6.3 % (19-41); Mean Corp Hgb Conc 31.6 g/dL (32-36); Mean Corpuscular Hgb 28.3 pg (27.0-32.0); Mean Corpuscular Volume 89.6 fL (80-94); Mean Platelet Vol. 10.3 fl (6.2-12.0); Monocyte# 1.12 X10^3/uL; Monocyte% 8.5 % (0-10); NRBC Flagged by Analyzer 0 % (0-5); Neutrophil # 11.01 X10^3/uL (2.7-7.7); Platelet Count 210 K/mm3 (150-450); RBC Distribution Width CV 16.2 % (11.6-14.6); RBC Distribution Width SD 52.6 fl (35.1-43.9); Red Blood Count 2.97 M/mm3 (4.6-6.2); White Blood Count 13.1 K/mm3 (4.4-11.0)
[2022-11-13 05:20] LABS: International Normalized Ratio 1.2; Partial Thromboplast Time 35.4 Seconds (24.1-36.2); Prothrombin Time (Protime)PT. 15.2 SECONDS (11.7-14.9)
[2022-11-13 05:42] LABS: Anion Gap 7 (5-15); BUN 80 mg/dL (7-18); BUN/Creat Ratio 34.6 RATIO (10-20); Calcium,Total 7.4 mg/dL (8.5-10.1); Chloride 105 mmol/L (98-107); Creatinine, Serum 2.31 mg/dL (0.70-1.30); EST Glomerular Filtration Rate 29 mL/min (>60); Est Glom Filt Rate - Afr Amer 35 mL/min (>60); Estimated Creatinine Clearance 25.91 ml/min; Glucose 107 mg/dL (74-106); Magnesium 2.5 mg/dL (1.6-2.6); Phosphorus 5.6 mg/dL (2.5-4.9); Potassium 4.1 mmol/L (3.5-5.1); Sodium Level 138 mmol/L (136-145)
--- NOTE | 2022-11-13 05:55 | EKG12_ITS ---
Test Reason : AM EKG Blood Pressure : / mmHG Vent. Rate : 054 BPM Atrial Rate : 054 BPM P-R Int : 216 ms QRS Dur : 108 ms QT Int : 496 ms P-R-T Axes : 097 054 234 degrees QTc Int : 470 ms Sinus bradycardia with 1st degree A-V block Incomplete left bundle branch block Left ventricular hypertrophy with repolarization abnormality ( Sokolow-Connolly , Arnold product , Romhi lt-Lamb ) Abnormal ECG When compared with ECG of 09-NOV-2022 16:52, MANUAL COMPARISON REQUIRED, DATA IS UNCONFIRMED Confirmed by KAYODE DIAZ, SUNG ([id number]), deputy editor in chief CALLIE AGUILAR ([id number]) on 12/12/2022 1:52:44 PM Referred By: Confirmed By:SUNG HEADLEY MD
[2022-11-13] MEDS: Ipratropium/Albuterol Sulfate 3 ML AMPUL.NEB INHALATION ×3 (07:31→19:30)
[2022-11-13] MEDS: Pantoprazole Sodium 40 MG in 0.9% Normal Saline (100mL MB+) 100 ML 330 MG IV ×2 (10:13→23:09)
[2022-11-13] MEDS: Piperacil/Tazobactam 3.375 GM in 0.9% Normal Saline (50mL MB+) 50 ML IV ×2 (11:44→16:29)
[2022-11-13 14:24] LABS: AST(SGOT) 14 U/L (15-37); Alanine Aminotransfer ALT/SGPT 28 U/L (16-61)
--- NOTE | 2022-11-13 15:15 | IMM_PTH ---
PATIENT: EKTA CONWAY LOC: [facility] U#:[id number] AGE/SX: 77/M ROOM: [facility] RE11/09/[address]: Dr. Sue Murphy DO : 1945 BED: 1 DIS: 11/14/2022 SPEC #: [id number] RECD: 11/14/22 14:28 STATUS: KARMEN REQ #: [id number] JENNY: 11/13/22 15:[address]: Rajesh Foss DEPT: IMMUNOHISTOCHEMISTRY RECD BY: Gertrude Damon ENTERED: 11/14/22 14:29 SP TYPE: IMMUNO OTHR DR: MD Dr. Virginie Zepeda MD Dr. Kathryn Lee, Tissues: B - Stomach, NOS C - Stomach, NOS D - Esophagus, NOS Procedures: H Pylori (initial) P53 (initial) KI-67 (add) MOC-31 (add) PHYSICIAN & [address] [address] SPECIMEN INFORMATION: Tissue Source: B - Gastric pylorus, C - Gastric body, D - Distal esophagus Clinical Info: GI ruthie vidal Specimen Number: [id number] B-D CPT code: 95770 x3, 17989 x2 METHODOLOGY: Deparaffinized sections of prefer/formalin-fixed tissue or PAP/DQ stained slides are incubated with monoclonal/polyclonal antibodies/oligonucleotide probes. Localization is made via biotin free immunoperoxidase method. Appropriate controls are performed and reacted as expected. Results on target cell population are indicated in the following table: RESULTS: ANTIBODY / CLONE RESULT Block B H Pylori (polyclonal) negative Block C H Pylori (polyclonal) negative Block D P53 (DO-7) positive, wild type pattern Ki-67 (30-9) positive, moderate MOC-31 (4561) positive These tests were developed and their performance characteristics determined by [facility]. They may not have been cleared or approved by the U.S. Food and Drug Administration. The FDA has determined that such clearance or approval is not necessary. The above immunohistochemical/dualISH markers are ordered and reviewed by the Pathologist. INTERPRETATION: B. Gastric pylorus, biopsy: Negative for Helicobacter pylori organisms. C. Gastric body, biopsy: Negative for Helicobacter pylori organisms. D. Distal esophagus, biopsy: No evidence of high-grade dysplasia. AM:kiya 11/16/2022
--- NOTE | 2022-11-13 15:15 | COLBX_PTH ---
PATIENT: EKTA CONWAY LOC: [facility] U#:[id number] AGE/SX: 77/M ROOM: [facility] RE11/09/[address]: Dr. Sue Murphy, : 1945 BED: 1 DIS: 11/14/2022 SPEC #: [id number] RECD: 11/13/22 16:18 STATUS: KARMEN RESunita #: [id number] JENNY: 11/13/22 15:[address]: Rajesh Foss DEPT: SURGICAL PATHOLOGY RECD BY: Bassam Oglesby ENTERED: 11/14/22 10:51 SP TYPE: COLON BX OTHR DR: MD Dr. Virginie Zepeda MD Dr. Kathryn Lee, Tissues: A - Duodenum, NOS B - Gastric mucous membrane C - Gastric mucous membrane D - Esophagus, NOS E - Sigmoid colon biopsy F - COLON BIOPSY G - COLON BIOPSY Procedures: Special Stain Group II Surgery Specimen Level IV Alcian Blue/PAS (control) Comments: @ Ordering doctor for SUIV edited from to @ by CHAS at 11/14/22 1423 @ Submitting doctor edited from to @ by CHAS at 11/14/22 1429 HEADER OPERATION: Colonoscopy, EGD, biopsy, polypectomy PRE-OP DIAGNOSIS: GI bleed, anemia TISSUE SUBMITTED: A - Duodenum biopsy, B - Gastric pylorus biopsy, C - Gastric body biopsy, D - Distal esophagus biopsy, E - Sigmoid polyp, F - Random colon, G - Hepatic flexure polyp MICROSCOPIC DIAGNOSIS A. Duodenum, biopsy: No pathologic change. B. Gastric pylorus, biopsy: Mild chronic inflammation. Pigmented macrophages of uncertain significance. See comment. C. Gastric body, biopsy: Minimal chronic inflammation. Pigmented macrophages of uncertain significance. See comment. D. Distal esophagus, biopsy: Gastroesophageal junctional mucosa with mild chronic and focal acute inflammation. 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 No evidence of dysplasia. See comment. E. Sigmoid colon polyp, biopsy: Tubular adenoma. F. Colon, random biopsy: No pathologic change. G. Colonic polyp at hepatic flexure, biopsy: Fragments of tubular adenoma. AM:kiya 11/15/2022 COMMENT B & C. The results of immunohistochemistry for Helicobacter pylori will be reported separately ([id number]). D. Immunohistochemistry ([id number]) for P53 and Ki-67 will be performed and results will be reported separately. Alcian blue/PAS stain with matched control supports the above diagnosis. MICROSCOPIC DESCRIPTION Slides are reviewed. GROSS DESCRIPTION A - Received in fixative is one container labeled with the patient's name and designated duodenum biopsy. The specimen consists of one irregular fragment of light ronquillo soft tissue that measures 0.3 x 0.3 x 0.1 cm. The specimen is totally submitted in one cassette. B - Received in fixative is one container labeled with the patient's name and designated gastric pylorus biopsy. The specimen consists of two irregular fragments of light ronqu[place] soft tissue that in aggregate measure 0.6 x 0.3 x 0.1 cm. The specimen is totally submitted in one cassette. C - Received in fixative is one container labeled with the patient's name and designated gastric body biopsy. The specimen consists of two irregular fragments of light ronquillo soft tissue that in aggregate measure 0.6 x 0.2 x 0.1 cm. The specimen is totally submitted in one cassette. D - Received in fixative is one container labeled with the patient's name and designated distal esophagus biopsy. The specimen consists of multiple irregular fragments of light r[place]qu[place] soft tissue that in aggregate measure 0.8 x 0.3 x 0.1 cm. The specimen is totally submitted in one cassette. E - Received in fixative is one container labeled with the patient's name and designated sigmoid polyp. The specimen consists of a ronquillo-pink polyp measuring 0.6 x 0.6 x 0.5 cm. The presumed base is inked. The polyp is bisected and submitted entirely in one cassette. F - Received in fixative is one container labeled with the patient's name and designated random colon. The specimen consists of multiple irregular fragments of light ronquillo soft tissue that in aggregate measure 0.8 x 0.5 x 0.1 cm. The specimen is totally submitted in one cassette. G - Received in fixative is one container labeled with the patient's name and designated hepatic flexure polyp. The specimen consists of two irregular fragments of light ronquillo soft tissue that in aggregate measure 0.6 x 0.3 x 0.1 cm. The specimen is totally submitted in one cassette. / JOSHUA:kiya 11/14/2022 TC:3 CPT: 72525 x7, 07097
--- NOTE | 2022-11-13 15:46 | OP.EGD_ITS ---
Patient Name: Niels Zimmer Procedure Date: 11/13/2022 2:53 PM Date of : 1945 Age: 77 Procedure: Upper GI endoscopy Indications: Iron deficiency anemia Providers: Rajesh Foss DO Medicines: Monitored Anesthesia Care Patient Profile: This is a 77 year old male. Refer to note in patient chart for documentation of history and physical. Patient has symptoms of chronic dyspepsia. Complications: No immediate complications. Procedure: Pre-Anesthesia Assessment: - Prior to the procedure, a History and Physical was performed, and patient medications and allergies were reviewed. The risks and benefits of the procedure and the sedation options and risks were discussed with the patient. All questions were answered and informed consent was obtained. Patient identification and proposed procedure were verified by the physician. Mental Status Examination: normal. Prophylactic Antibiotics: The patient does not require prophylactic antibiotics. Prior Anticoagulants: The patient has taken no anticoagulant or antiplatelet agents. After reviewing the risks and benefits, the patient was deemed in satisfactory condition to undergo the procedure. The anesthesia plan was to use monitored anesthesia care (MAC). Immediately prior to administration of medications, the patient was re-assessed for adequacy to receive sedatives. The heart rate, respiratory rate, oxygen saturations, blood pressure, adequacy of pulmonary ventilation, and response to care were monitored throughout the procedure. The physical status of the patient was re-assessed after the procedure. After obtaining informed consent, the endoscope was passed under direct vision. Throughout the procedure, the patient's blood pressure, pulse, and oxygen saturations were monitored continuously. The Colonoscope was introduced through the mouth, and advanced to the second part of duodenum. The upper GI endoscopy was accomplished without difficulty. The patient tolerated the procedure well. Scope In: 3:03:18 PM Scope Out: 3:10:24 PM Total Procedure Duration Time 0 hours 7 minutes 6 seconds Findings: There were esophageal mucosal changes suggestive of short-segment Guzman's esophagus present in the lower third of the esophagus. The maximum longitudinal extent of these mucosal changes was 4 cm in length. Mucosa was biopsied with a cold forceps for histology in a targeted manner at intervals of 1 cm in the lower third of the esophagus. One specimen bottle was sent to pathology. Biopsies were taken with a cold forceps for histology. Verification of patient identification for the specimen was done. Estimated blood loss was minimal. Three 8 mm angiodysplastic lesions with no bleeding were found in the gastric body and on the greater curvature of the stomach. Biopsies were taken with a cold forceps for histology. Verification of patient identification for the specimen was done. Estimated blood loss was minimal. A medium-sized hiatal hernia was present. Localized severe inflammation with hemorrhage characterized by congestion (edema), erosions, erythema, friability and granularity was found in the gastric antrum. Area was successfully injected with 7 mL of a 0.1 mg/mL solution of epinephrine for drug delivery. Coagulation for hemostasis using heater probe was successful. Estimated blood loss was minimal. Biopsies were taken with a cold forceps for Helicobacter pylori testing. Verification of patient identification for the specimen was done. Biopsies were taken with a cold forceps for histology. Verification of patient identification for the specimen was done. Estimated blood loss was minimal. Diffuse severe mucosal changes characterized by discoloration were found in the entire duodenum. Biopsies were taken with a cold forceps for histology. Verification of patient identification for the specimen was done. Estimated blood loss was minimal. 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 Biopsied. - Three non-bleeding angiodysplastic lesions in the stomach. Biopsied. - Medium-sized hiatal hernia. - Chronic gastritis with hemorrhage. Injected. Treated with a heater probe. - Mucosal changes in the duodenum. Biopsied. Recommendation: - Resume previous diet. - Continue present medications. - Await pathology results. - Repeat upper endoscopy in 2 months. - DP represents a benign incidental finding caused by pigment deposition (mainly iron) at the apex of duodenal villi and is associated with certain medical conditions (hypertension, diabetes mellitus, chronic renal disease) and related therapies (sulfur-containing diuretics), which may be implicated in the pigment deposition and accumulation (duodenal drugs and iron absorption, microhemorrhages, decreased renal function). Differential diagnoses of duodenal pigmentations include diseases such as true melanosis, iron pill duodenitis, clofazimine-related pigmentation, eosinophilic enteritis, and primary and metastatic melanoma, all of which harbor different endoscopic, histologic, and histochemical findings. Pathological examination of duodenal biopsies in the setting of duodenal pigmentation is a reliable standard for diagnosis. Procedure Code(s): --- Professional --- 52251, 59, Esophagogastroduodenoscopy, flexible, transoral; with control of bleeding, any method 12466, Esophagogastroduodenoscopy, flexible, transoral; with biopsy, single or multiple 18204, 59,51, Esophagogastroduodenoscopy, flexible, transoral; with directed submucosal injection(s), any substance CPT copyright 2021 [employer]. All rights reserved. The codes documented in this report are preliminary and upon research and development scientist review may be revised to meet current compliance requirements. Rajesh Foss DO 11/13/2022 3:45:35 PM This report has been signed electronically. Number of Addenda: 0 Note Initiated On: 11/13/2022 2:53 PM
--- NOTE | 2022-11-13 15:46 | OP.CCLET_ITS ---
11/13/2022 Virginie Lockhart MD [address] [place] [address] [place] [address] Re : Upper GI endoscopy procedure for Niels Zimmer Dear Dr. Lockhart This procedure was performed on Sunday, November 13, 2022. My impressions and recommendations are as follows: Impressions : - Esophageal mucosal changes suggestive of short-segment Guzman's esophagus. Biopsied. - Three non-bleeding angiodysplastic lesions in the stomach. Biopsied. - Medium-sized hiatal hernia. - Chronic gastritis with hemorrhage. Injected. Treated with a heater probe. - Mucosal changes in the duodenum. Biopsied. Recommendations : - Resume previous diet. - Continue present medications. - Await pathology results. - Repeat upper endoscopy in 2 months. - DP represents a benign incidental finding caused by pigment deposition (mainly iron) at the apex of duodenal villi and is associated with certain medical conditions (hypertension, diabetes mellitus, chronic renal disease) and related therapies (sulfur-containing diuretics), which may be implicated in the pigment deposition and accumulation (duodenal drugs and iron absorption, microhemorrhages, decreased renal function). Differential diagnoses of duodenal pigmentations include diseases such as true melanosis, iron pill duodenitis, clofazimine-related pigmentation, eosinophilic enteritis, and primary and metastatic melanoma, all of which harbor different endoscopic, histologic, and histochemical findings. Pathological examination of duodenal biopsies in the setting of duodenal pigmentation is a reliable standard for diagnosis. My findings are described in the full procedure note, which is enclosed. If I can be of further assistance, please feel free to contact me at . Sincerely, Rajesh Foss, 11/13/2022 3:45:35 PM This report has been signed electronically.
--- NOTE | 2022-11-13 15:50 | OP.CCLET_ITS ---
11/13/2022 Virginie Lockhart MD [address] [place] [address] [place] [address] Re : Colonoscopy procedure for Niels Zimmer Dear Dr. Lockhart This procedure was performed on Sunday, November 13, 2022. My impressions and recommendations are as follows: Impressions : - Hemorrhoids found on perianal exam. - Non-bleeding internal hemorrhoids. - Three 1 to 2 mm polyps in the sigmoid colon and at the hepatic flexure, removed with a hot snare. Resected and retrieved. - Congested mucosa in the sigmoid colon, in the descending colon, at the splenic flexure, in the transverse colon, at the hepatic flexure, in the ascending colon and in the cecum. Biopsied. - Diverticulosis in the recto-sigmoid colon, in the sigmoid colon and in the descending colon. - A single non-bleeding colonic angiodysplastic lesion. Treated with a heater probe. Recommendations : - [facility]. - Resume previous diet. - Continue present medications. - Await pathology results. - Repeat colonoscopy in 3 years for surveillance. My findings are described in the full procedure note, which is enclosed. If I can be of further assistance, please feel free to contact me at . Sincerely, Rajesh Foss, 11/13/2022 3:50:13 PM This report has been signed electronically.
--- NOTE | 2022-11-13 15:50 | OP.COLON_ITS ---
Patient Name: Niels Zimmer Procedure Date: 11/13/2022 3:11 PM Date of : 1945 Age: 77 Procedure: Colonoscopy Indications: Hematochezia, Iron deficiency anemia Providers: Rajesh Foss DO Medicines: Monitored Anesthesia Care Patient Profile: This is a 77 year old male. Refer to note in patient chart for documentation of history and physical. Patient has symptoms of chronic dyspepsia. Last Colonoscopy: 5 years ago. Complications: No immediate complications. Procedure: Pre-Anesthesia Assessment: - Prior to the procedure, a History and Physical was performed, and patient medications and allergies were reviewed. The risks and benefits of the procedure and the sedation options and risks were discussed with the patient. All questions were answered and informed consent was obtained. Patient identification and proposed procedure were verified by the physician. Mental Status Examination: normal. Prophylactic Antibiotics: The patient does not require prophylactic antibiotics. Prior Anticoagulants: The patient has taken no anticoagulant or antiplatelet agents. After reviewing the risks and benefits, the patient was deemed in satisfactory condition to undergo the procedure. The anesthesia plan was to use monitored anesthesia care (MAC). Immediately prior to administration of medications, the patient was re-assessed for adequacy to receive sedatives. The heart rate, respiratory rate, oxygen saturations, blood pressure, adequacy of pulmonary ventilation, and response to care were monitored throughout the procedure. The physical status of the patient was re-assessed after the procedure. After I obtained informed consent, the scope was passed under direct vision. Throughout the procedure, the patient's blood pressure, pulse, and oxygen saturations were monitored continuously. The Colonoscope was introduced through the anus and advanced to the terminal ileum. The colonoscopy was performed without difficulty. The patient tolerated the procedure well. The quality of the bowel preparation was adequate. The terminal ileum, ileocecal valve, appendiceal orifice, and rectum were photographed. Scope In: 3:13:10 PM Scope Withdrawal Time 0 hours 9 minutes 58 seconds Scope Out: 3:30:03 PM Total Procedure Duration Time 0 hours 16 minutes 53 seconds Findings: Hemorrhoids were found on perianal exam. Non-bleeding internal hemorrhoids were found during retroflexion. The hemorrhoids were Grade II (internal hemorrhoids that prolapse but reduce spontaneously). Three sessile polyps were found in the sigmoid colon and hepatic flexure. The polyps were 1 to 2 mm in size. These polyps were removed with a hot snare. Resection and retrieval were complete. Verification of patient identification for the specimen was done. Estimated blood loss was minimal. An area of mildly congested mucosa was found in the sigmoid colon, in the descending colon, at the splenic flexure, in the transverse colon, at the hepatic flexure, in the ascending colon and in the cecum. Biopsies for histology were taken with a cold forceps from the ascending colon, right colon, left colon, transverse colon, right transverse colon, left transverse colon, descending colon, sigmoid colon and rectum for evaluation of microscopic colitis. Multiple small and large-mouthed diverticula were found in the recto-sigmoid colon, sigmoid colon and descending colon. A single medium-sized localized angiodysplastic lesion without bleeding was found at the ileocecal valve. Coagulation for hemostasis using heater probe was successful. Estimated blood loss was minimal. Impression: - Hemorrhoids found on perianal exam. - Non-bleeding internal hemorrhoids. - Three 1 to 2 mm polyps in the sigmoid colon and at the hepatic flexure, removed with a hot snare. Resected and retrieved. - Congested mucosa in the sigmoid colon, in the descending colon, at the splenic flexure, in the transverse colon, at the hepatic flexure, in the ascending colon and in the cecum. Biopsied. - Diverticulosis in the recto-sigmoid colon, in the sigmoid colon and in the descending colon. - A single non-bleeding colonic angiodysplastic lesion. Treated with a heater probe. Recommendation: - [facility]. - Resume previous diet. - Continue present medications. - Await pathology results. - Repeat colonoscopy in 3 years for surveillance. Procedure Code(s): --- Professional --- 84357, 59, Colonoscopy, flexible; with control of bleeding, any method 66111, Colonoscopy, flexible; with removal of tumor(s), polyp(s), or other lesion(s) by snare technique 38308, 59, Colonoscopy, flexible; with biopsy, single or multiple CPT copyright 2021 [employer]. All rights reserved. The codes documented in this report are preliminary and upon surgical coder review may be revised to meet current compliance requirements. Rajesh Foss DO 11/13/2022 3:50:13 PM This report has been signed electronically. Number of Addenda: 0 Note Initiated On: 11/13/2022 3:11 PM
[2022-11-13] MEDS: Sertraline 50 MG Tablet PO (16:36)
[2022-11-13] MEDS: amLODIPine 10 MG Tablet PO (16:36)
[2022-11-13] MEDS: Bumetanide 2 MG Tablet PO (16:36)
[2022-11-13] MEDS: Lisinopril 40 MG Tablet PO (16:36)
--- NOTE | 2022-11-13 16:55 | PCM.PN.HOSP ---
Reason for Visit Reason for Visit: Shortness of breath Subjective Subjective Patient does state his breathing is a little bit better. I did discuss with him the findings on his sputum showing Pseudomonas and his change in antibiotics. EGD and colonoscopy planned for today. Objective Data Objective Data Vital Signs: Vital Signs Temp Pulse Resp BP Pulse Ox O2 Del Method O2 Flow Rate 97.8 F 63 18 141/66 H 93 Nasal Cannula 3 11/13/22 16:11/13/22 16:29 11/13/22 16:11/13/22 16:29 11/13/22 16:29 11/13/22 16:29 11/13/22 16:29 FiO2 44 11/11/22 16:24 Oxygen Flow Rate (L/min) [ 5 AMBULATING with Oxygen #2] Oxygen Flow Rate (L/min) [ 4 AMBULATING with Oxygen #1] Oxygen Flow Rate (L/min) [At 3 REST with Oxygen] Oxygen Flow Rate (L/min) 3 Oxygen Delivery Method Nasal Cannula Weight: 70.9 kg Body Mass Index (BMI) 23.8 Intake & Output: Intake and Output for Last 24 Hours 11/11/22 11/12/22 11/13/22 23:59 23:59 23:59 Intake Total 1600 / 1600 1250 / 1250 160 / 160 Output Total 1545 / 1545 200 / 200 0 / 0 Balance 55 / 55 1050 / 1050 160 / 160 Lab / Micro Data 11/13/22 04:27 11/13/22 04:27 Labs: Laboratory Results - last 24 hr 11/13/22 04:27: WBC 13.1 H, RBC 2.97 L, Hgb 8.4 L, Hct 26.6 L, MCV 89.6, MCH 28.3, MCHC 31.6 L, RDW Std Deviation 52.6 H, RDW Coeff of Lisa 16.2 H, Plt Count 210, MPV 10.3, Immature Gran % (Auto) 1.200 H, Neut % (Auto) 84.0 H, Lymph % (Auto) 6.3 L, [place] % (Auto) 8.5, Eos % (Auto) 0.0, Baso % (Auto) 0.0, Absolute Neuts (auto) 11.0 H, Absolute Lymphs (auto) 0.82 L, Nucleated RBC % 0, PT 15.2 H, INR 1.2, APTT 35.4, Sodium 138, Potassium 4.1, Chloride 105, Carbon Dioxide 26.0, Anion Gap 7, BUN 80 H, Creatinine 2.31 H, Estim Creat Clear Calc 25.91, Est GFR (MDRD) Af Amer 35 L, Est GFR (MDRD) Non-Af 29 L, BUN/Creatinine Ratio 34.6 H, Glucose 107 H, Calcium 7.4 L, Phosphorus 5.6 H, Magnesium 2.5, AST 14 L, ALT 28 Micro: Microbiology 11/10/22 10:50 Sputum, Expectorated/Coughed Gram Stain - Final 11/10/22 10:50 Sputum, Expectorated/Coughed Respiratory Culture - Final Pseudomonas aeruginosa 11/12/22 07:30 Stool Stool Occult Blood (LEONA) - Final Occult Blood Positive 11/10/22 17:00 Nasal Secretion SARS-CoV-2 & FLU Antigen (Rapid) - Final 11/09/22 16:58 Nasal Secretion SARS-CoV-2 Antigen (Rapid) - Final Rhythm Strip Rhythm Strip: Sinus Rhythm Rate: 69 Ectopy: None Physical Exam Const alert, oriented x3, no apparent distress, average body habitus and well nourished Constitutional Narrative: Very pleasant, older, white male, lying in bed and nursing at the bedside placing a new IV for endoscopy, appears comfortable, currently on 3 L supplemental nasal cannula. HEENT head/scalp atraumatic, moist oral mucous membranes and oropharynx normal HEENT Narrative: No thrush, dentition is poor, Mallampati is 2 Resp normal respiratory effort, no retractions and no use of accessory muscles Resp Narrative: Diffusely diminished with scattered fine crackles bilateral Auscultation: crackles; Negative for rhonchi or wheezes Cardio regular rate, regular rhythm, S1 normal heart sound, S2 normal heart sound, no murmurs, no rub, no gallops and no clicks GI normal to inspection, nondistended, normoactive bowel sounds, soft to palpation and non-tender Extremity no clubbing, cyanosis or edema Extremity Narrative: Pedal pulses are 2+ Neuro oriented x3, moves all extremities and no focal motor deficits Speech: speech normal Psych affect normal Psych Narrative: Eye contact is good, patient is very pleasant and interacts appropriately Assessment & Plan Assessment/Plan (1) Hypoxia: (2) Acute dyspnea: (3) Gram-negative pneumonia: (4) Leukocytosis: (5) GI bleed: PLAN: Plan Acute on chronic hypoxic respiratory failure secondary to pseudomonal pneumonia -Per discussed with case management who has called with regards to his oxygen prescription he is to be on 2 L with exertion -Patient insistent that he is using 3 L [id number] and has been weaned to this currently -Continue to wean as able and check home O2 eval for current needs -Discontinue cefdinir and azithromycin and start Zosyn to cover Pseudomonas -Anticipate transition to Levaquin at discharge -Continue aggressive pulmonary toilet we will add scheduled DuoNebs -Continue Mucinex -Add Pep therapy -Continue I-S -Continue oral steroids GI bleed -Hemoglobin drop and was given 1 unit packed red blood cells on 11/11/2022 -Guaiac positive -EGD done today and shows mucosal changes consistent with Guzman's esophagus and biopsy was taken, 3 nonbleeding angiodysplastic lesions in the stomach that were biopsied and chronic gastritis with hemorrhage that was injected and treated with heater probe, there were also mucosal changes in the duodenum which were biopsied -Colonoscopy showed hemorrhoids on the perianal exam with 3 nonbleeding internal hemorrhoids and three 1 to 2 mm polyps in the sigmoid colon that were removed and resected, congested mucosa in the sigmoid colon, descending colon, splenic flexure, transverse colon, and ascending colon were biopsied, diverticulosis in the rectosigmoid colon, sigmoid colon, and descending colon and 1 single nonbleeding colonic angiodysplastic lesion that was treated with heater probe -Continue Protonix IV 40 mg twice daily -Transition to oral Protonix tomorrow -Continue oral iron -GI following-appreciate input History of pulmonary fibrosis -Doubt acute IPF flare -Recommend outpatient follow-up -Will need to evaluate further for oxygen requirements prior to discharge as I suspect he may need more than he is on -If worsens will consult pulmonary medicine Leukocytosis -Has trended up however patient is currently on steroids -We will continue to monitor as clinically he is improving Acute on chronic anemia -It appears that his baseline hemoglobin runs between 9 and 11 -1 unit packed red blood cells given on 11/11/2022 -Hemoglobin at 8.4 today showing stability from yesterday at 8.1 -Repeat CBC in a.m. and transfuse for less than 7 -Continue iron supplementation as ordered CKD stage IV -Baseline serum creatinine is between 2.2 and 2.6 -Currently 2.31 -Continue diuretics as ordered -Would recommend outpatient follow-up with nephrology if he is not already following -Continue home medications as ordered -BMP in a.m. CAD/carotid artery stenosis/hyperlipidemia/hypertension -CABG x 4: Sequential BALES-LAD and D1, SVG-OM1, SVG-RPDA 08/14/12 -CEA 2017 with left carotid artery stent in 2003 -Continue lisinopril 40 mg daily -Continue hydralazine 100 mg 3 times daily -continue carvedilol 25 mg twice daily -Continue Bumex 2 mg p.o. twice daily -Continue atorvastatin 80 mg nightly-continue amlodipine 10 mg daily BPH -Continue doxazosin Depression -Continue Zoloft DVT prophylaxis -SCDs -Hold chemoprophylaxis secondary to Hemoccult positive stool CODE STATUS Full code Charges/Coding Visit Charges Inpatient E&M: 83947 Subs Hosp L3
[2022-11-13] MEDS: predniSONE 20 MG Tablet 40 MG PO (19:00)
[2022-11-13] MEDS: Carvedilol 25 MG Tablet PO (21:44)
[2022-11-13] MEDS: Atorvastatin Calcium 80 MG Tablet PO (21:44)
[2022-11-13] MEDS: guaiFENesin 1,200 MG Tablet 1200 MG PO (21:44)
[2022-11-13] MEDS: Aspirin 81 MG TAB.CHEW PO (21:44)
[2022-11-13] MEDS: Doxazosin 4 MG Tablet PO (21:45)
[2022-11-13] MEDS: Ezetimibe 10 MG Tablet PO (21:45)
[2022-11-14] VITALS (10 sets, daily range): BP systolic 138–148; BP diastolic 43–52; PULSE 55–72; RESP 12–18; TEMP 36.6–36.9; O2SAT 80–100
[2022-11-14] MEDS: hydrALAZINE 50 MG Tablet 100 MG PO ×2 (05:06→13:32)
[2022-11-14] MEDS: Piperacil/Tazobactam 3.375 GM in 0.9% Normal Saline (50mL MB+) 50 ML IV ×2 (05:15→13:35)
[2022-11-14 06:28] LABS: Absolute Lymphocyte Count 0.47 X10^3/uL (0.83-4.51); Absolute Neutrophil Count 8.8 X10^3/uL (2.0-7.7); Basophil# 0.01 X10^3/uL; Basophil% 0.1 % (0-1); Eosinophil# 0.02 X10^3/uL; Eosinophils% 0.2 % (0-5); Hematocrit 29.2 % (40-54); Lymphocyte # 0.47 X10^3/ul (0.83-4.51); Lymphocyte % 4.9 % (19-41); Mean Corp Hgb Conc 30.8 g/dL (32-36); Mean Platelet Vol. 10.5 fl (6.2-12.0); Monocyte# 0.23 X10^3/uL; Monocyte% 2.4 % (0-10); NRBC Flagged by Analyzer 0 % (0-5); Neutrophil # 8.81 X10^3/uL (2.7-7.7); Neutrophil % 91.4 % (47-70); POSITIVE DIFFERENTIAL YES; Platelet Count 241 K/mm3 (150-450); RBC Distribution Width CV 16.4 % (11.6-14.6); RBC Distribution Width SD 54.8 fl (35.1-43.9); Red Blood Count 3.21 M/mm3 (4.6-6.2); White Blood Count 9.6 K/mm3 (4.4-11.0)
[2022-11-14 06:43] LABS: Differential Indicated SCAN CRITERIA MET
[2022-11-14 06:48] LABS: Differential Comment SCANNED
[2022-11-14 07:01] LABS: Anion Gap 3 (5-15); BUN 68 mg/dL (7-18); BUN/Creat Ratio 28.7 RATIO (10-20); Calcium,Total 8.1 mg/dL (8.5-10.1); Chloride 109 mmol/L (98-107); Creatinine, Serum 2.37 mg/dL (0.70-1.30); EST Glomerular Filtration Rate 28 mL/min (>60); Est Glom Filt Rate - Afr Amer 34 mL/min (>60); Estimated Creatinine Clearance 25.25 ml/min; Glucose 112 mg/dL (74-106); Potassium 4.5 mmol/L (3.5-5.1); Sodium Level 141 mmol/L (136-145)
[2022-11-14] MEDS: Ipratropium/Albuterol Sulfate 3 ML AMPUL.NEB INHALATION ×2 (07:24→14:14)
[2022-11-14] MEDS: predniSONE 20 MG Tablet 40 MG PO (08:43)
[2022-11-14] MEDS: Bumetanide 2 MG Tablet PO (08:44)
[2022-11-14] MEDS: Ferrous Sulfate 325 MG Tablet PO (08:44)
[2022-11-14] MEDS: guaiFENesin 1,200 MG Tablet 1200 MG PO (10:52)
[2022-11-14] MEDS: amLODIPine 10 MG Tablet PO (10:52)
[2022-11-14] MEDS: Lisinopril 40 MG Tablet PO (10:53)
[2022-11-14] MEDS: Sertraline 50 MG Tablet PO (10:53)
[2022-11-14] MEDS: Ascorbic Acid 500 MG Tablet PO (10:53)
[2022-11-14] MEDS: Pantoprazole Sodium 40 MG in 0.9% Normal Saline (100mL MB+) 100 ML 330 MG IV (10:54)
[2022-11-14 12:09] LABS: Anti-Centromere B Ab <0.2 AI (0.0-0.9); Anti-Chromatin 0.2 AI (0.0-0.9); Anti-Jo <0.2 AI (0.0-0.9); Anti-Scleroderma-70 AB <0.2 AI (0.0-0.9); Anti-dsDNA Ab 1 IU/mL (0-9); RNP Ab <0.2 AI (0.0-0.9); SJOGREN'S Anti-SS-A test < 0.2 AI (0.0-0.9); SJOGREN'S Anti-SS-B test < 0.2 AI (0.0-0.9); Smith Ab <0.2 AI (0.0-0.9)
--- NOTE | 2022-11-14 15:14 | PCM.DC.SUM ---
Providers Date of Admission: 11/09/22 Date of Discharge: 11/14/22 Primary Care Physician: Dr. Virginie Lockhart MD Consultations 11/12/22 09:03 Consult: Gastroenterology Routine Consulting Provider: [facility] Reason for Consult: GIB EMERGENT Consult: No MD Notified: Yes Date Notified: 11/12/22 Time Notified: 09:35 Method of Notification: Text Reason For Visit: DYSPNEA Diagnosis Discharge Diagnosis (1) Hypoxia: Status: Acute Code(s): R09.02 - Hypoxemia (2) Acute dyspnea: Status: Acute Code(s): R06.00 - Dyspnea, unspecified (3) Gram-negative pneumonia: Status: Acute Code(s): J15.6 - Pneumonia due to other Gram-negative bacteria (4) Leukocytosis: Status: Acute Code(s): D72.829 - Elevated white blood cell count, unspecified (5) GI bleed: Status: Acute Code(s): K92.2 - Gastrointestinal hemorrhage, unspecified Medications at Discharge Home Medications aspirin 81 mg chewable tablet 81 mg PO QHS Heart 08/03/19 ascorbate calcium (vitamin C) 500 mg tablet 500 mg PO DAILY Check with primary doctor 09/28/20 nitroglycerin 0.4 mg sublingual tablet 0.4 mg sublingual PRN PRN Angina #25 tabs 08/14/22 amlodipine 10 mg tablet 10 mg PO DAILY Check with primary doctor 08/17/22 carvedilol 25 mg tablet 25 mg PO BID Check with primary doctor 08/17/22 doxazosin 4 mg tablet 4 mg PO QHS Check with primary doctor 08/17/22 bumetanide 1 mg tablet 1 mg PO BIDCM Check with primary doctor 30 days #60 tabs 09/25/22 ferrous sulfate 325 mg (65 mg iron) tablet (Feosol) 325 mg PO DAILY supplement 30 days #0 tabs 09/25/22 hydralazine 100 mg tablet 100 mg PO TID 10/12/22 sertraline 50 mg tablet 50 mg PO DAILY Check with primary doctor #90 tabs 10/30/22 atorvastatin 80 mg tablet 80 mg PO QHS cholesterol lowering 11/09/22 ezetimibe 10 mg tablet 10 mg PO QHS cholesterol 11/09/22 lisinopril 40 mg tablet 40 mg PO DAILY 11/09/22 guaifenesin 1,200 mg tablet, extended release 12 hr (Mucus Relief ER) 1,200 mg PO BID #0 tabs 11/14/22 levofloxacin 750 mg tablet 750 mg PO Q48H #6 tabs 11/14/22 pantoprazole 40 mg tablet,delayed release (Protonix) 40 mg PO BID #60 tabs 11/14/22 prednisone 10 mg tablet 10 mg PO DAILY #30 tabs 11/14/22 Hospital Course Operations None Procedures Blood transfusion, Colonoscopy, EGD, EKG and - (Chest x-ray) Summary of Care Provided Minutes Spent on Discharge: 39 Hospital Course: Mr. Zimmer is a 77-year-old white male who presented to the emergency department on 11/09/2022 with shortness of breath. He had multiple admissions previously for similar issues and has a history of pulmonary fibrosis. Patient reported that his chest symptoms started a couple days prior to presentation and he had cough with eric brown sputum. He is on oxygen at baseline he reported to us that he is wearing about 3 L [id number]. He follows with pulmonary medicine in [facility]. He was found to be significantly hypoxic with oxygen saturations in the mid 60s on arrival to the emergency department. Chest x-ray was read out as vascular congestion and he did receive Lasix. He was also started on antibiotics. Flu and COVID were negative on presentation. His respiratory cultures grew out Pseudomonas ultimately. He was initially placed on a azithromycin and oral cefdinir however once I had cultures and sensitivities we broadened him to Zosyn and the plan will be to discharge him on 6 more days of Levaquin. On 11/11/2022 his hemoglobin was noted to drop from 8.2-7.3 and a Hemoccult was performed which was found to be positive. He was given 1 unit of packed red blood cells and his hemoglobin did correct appropriately and is up to 8.1. With his hemoglobin dropped and his guaiac positive stool we consulted gastroenterology and an EGD and colonoscopy were performed. EGD showed esophageal mucosal changes consistent with short segment Guzman's esophagus that was biopsied, 3 nonbleeding angiodysplastic lesions in the stomach that were biopsied, chronic gastritis with hemorrhage that was injected and treated with heater probe and mucosal changes in the duodenum which was biopsied. A repeat endoscopy was recommended in 2 months and we will continue to keep him on Protonix at discharge 40 mg p.o. twice daily until he follows up with gastroenterology. Anoscopy showed hemorrhoids on the perianal exam as well as nonbleeding internal hemorrhoids, three 1 to 2 mm polyps in the sigmoid colon and at the hepatic flexure that were removed with hot snare and retrieved, congested mucosa in the sigmoid colon, descending colon, transverse colon, in the ascending colon all of which were biopsied and diverticulosis in the rectosigmoid colon, sigmoid colon, and descending colon. There is also a signal at nonbleeding colon neck angiodysplastic lesion that was treated with heater probe. He will need a repeat colonoscopy in 3 months and pathology results were pending at the time of discharge. We will have him follow-up with Dr. Foss within the next 2 months for biopsy results and for repeat EGD. Prior to discharge we did an ambulatory pulse ox and he was on 3 L at rest with oxygen saturations at 94 to 95%. Upon ambulation he desatted and required 5 L with exertion with oxygen saturations around 90%. He needed no new prescription as his concentrator goes up to 5 L. We did send a prescription for his Protonix 40 mg p.o. twice daily, steroid taper, and Levaquin to local pharmacy at the time of discharge. He indicated he has a follow-up appointment with his civil division deputy sheriff on 11/23/2022. He is to call for an appointment with Dr. Foss after he is discharged and have asked him to see his primary care physician within the next 1 to 2 weeks. Patient was discharged home in stable condition on 11/14/2022. Hemoglobin was stable at 9.0 at the time of discharge. Discharge diagnoses: -Acute on chronic hypoxic respiratory failure Pseudomonas pneumonia GI bleed secondary to angiodysplastic lesions and gastritis Colon polyps History of pulmonary fibrosis Leukocytosis Acute on chronic anemia CKD stage IV CAD Carotid artery stenosis Hyperlipidemia Hypertension BPH Depression Physical Exam Const alert, oriented x3, no apparent distress, average body habitus and well nourished Constitutional Narrative: Very pleasant, older, white male, sitting up in bed, nursing and nursing clerk at bedside, patient currently appears comfortable and nontoxic General Appearance: cooperative, comfortable, well kempt and well developed Orientation / Consciousness: awake, oriented to person, oriented to place and oriented to time Exam Limitations: no limitations HEENT normocephalic, head/scalp atraumatic and moist oral mucous membranes; Negative for hearing grossly normal bilaterally HEENT Narrative: Moderate hearing loss, Mallampati is 2, no thrush Eyes PERRL and EOMs intact bilaterally Eyes Narrative: Conjunctival are mildly pale bilaterally, no scleral icterus Neck no lymphadenopathy and supple Neck Narrative: Trachea midline, no thyroid enlargement Resp normal respiratory effort, no retractions and no use of accessory muscles Resp Narrative: Diffusely diminished with scattered fine crackles bilateral Auscultation: crackles; Negative for rhonchi or wheezes Cardio regular rate, regular rhythm, S1 normal heart sound, S2 normal heart sound, no murmurs, no rub, no gallops and no clicks GI normal to inspection, nondistended, normoactive bowel sounds, soft to palpation and non-tender Extremity no clubbing, cyanosis or edema Extremity Narrative: Pedal pulses are 2+ Skin no rashes or lesions noted, no wounds, skin turgor normal and no jaundice Neuro oriented x3, CN's II-XII intact bilaterally, moves all extremities and no focal motor deficits Speech: speech normal Psych affect normal Psych Narrative: Eye contact is good, patient is very pleasant and interacts appropriately Weight / BMI Weight Weight: 70.9 kg Body Mass Index (BMI) 23.8 ABG / Lab / Microbiology Data 11/14/22 05:35 11/14/22 05:35 Laboratory: Laboratory Results - last 24 hr 11/12/22 04:50: TIERRA-1 Antibody <0.2, SS-A/Ro IgG Antibody < 0.2, SS-B/La IgG Antibody < 0.2, Sm (Gutiérrez) Antibody <0.2, SUPERVISOR SOUND TECHNICIAN Antibody <0.2, Scl-70 Scleroderma Ab <0.2, Double Strand DNA Ab 1, Centromere B Antibody <0.2 11/14/22 05:35: WBC 9.6, RBC 3.21 L, Hgb 9.0 L, Hct 29.2 L, MCV 91.0, MCH 28.0, MCHC 30.8 L, RDW Std Deviation 54.8 H, RDW Coeff of Lisa 16.4 H, Plt Count 241, MPV 10.5, Immature Gran % (Auto) 1.000 H, Neut % (Auto) 91.4 H, Lymph % (Auto) 4.9 L, Drew % (Auto) 2.4, Eos % (Auto) 0.2, Baso % (Auto) 0.1, Absolute Neuts (auto) 8.8 H, Absolute Lymphs (auto) 0.47 L, Nucleated RBC % 0, Differential Comment SCANNED, Sodium 141, Potassium 4.5, Chloride 109 H, Carbon Dioxide 29.0, Anion Gap 3 L, BUN 68 H, Creatinine 2.37 H, Estim Creat Clear Calc 25.25, Est GFR (MDRD) Af Amer 34 L, Est GFR (MDRD) Non-Af 28 L, BUN/Creatinine Ratio 28.7 H, Glucose 112 H, Calcium 8.1 L Microbiology: Microbiology 11/10/22 10:50 Sputum, Expectorated/Coughed Gram Stain - Final 11/10/22 10:50 Sputum, Expectorated/Coughed Respiratory Culture - Final Pseudomonas aeruginosa 11/12/22 07:30 Stool Stool Occult Blood (LEONA) - Final Occult Blood Positive 11/10/22 17:00 Nasal Secretion SARS-CoV-2 & FLU Antigen (Rapid) - Final 11/09/22 16:58 Nasal Secretion SARS-CoV-2 Antigen (Rapid) - Final D/C Instructions Discharge Diet: Low fat / Low cholesterol, 8 Cup Fluid Restriction and 2000 mg Sodium Diet Discharge Activity: Return to Normal Activity Meaningful Use Info Meaningful Use Diagnoses (Choose all that apply): None applicable Discharge Plan Admission Admit Date/Time: 11/09/22 18:02 Primary Reason for Your Visit: Shortness of breath Attending Provider: Sue Murphy Primary Care Provider: Virginie Lockhart Consulting Providers: Simón Batres Instructions Additional Instructions / Restrictions: Please take this sheet to your follow-up appointment with your civil division deputy sheriff 1. You were diagnosed with Pseudomonas pneumonia and treated for a 7-day course with Levaquin as well as a prednisone taper 2. Ambulatory pulse ox was done prior to discharge and you required 3 L of oxygen at rest and 5 L with exertion. Please continue this after discharge 3. Please keep your follow-up with your civil division deputy sheriff on 11/23/2022 as discussed while you are hospitalized 4. Please follow-up with crinkling machine operator within the next 2 months and call for an appointment after discharge Discharge Orders/Prescriptions Prescriptions: New Mucus Relief ER 1,200 mg Tablet Extended Release 12hr 1,200 mg PO BID Qty: 0 0RF levofloxacin 750 mg tablet 750 mg PO Q48H Qty: 6 0RF Rx Instructions: Take every other day until antibiotics are gone prednisone 10 mg tablet 10 mg PO DAILY Qty: 30 0RF Rx Instructions: Take 4 tablets x 3 days, 3 tablets x 3 days, 2 tablets x 3 days, 1 tablet x 3 days pantoprazole [Protonix] 40 mg tablet,delayed release (DR/EC) 40 mg PO BID Qty: 60 2RF Continued ascorbate calcium (vitamin C) 500 mg tablet 500 mg PO DAILY nitroglycerin 0.4 mg tablet, sublingual 0.4 mg SL PRN PRN (Reason: Angina) Qty: 25 3RF hydralazine 100 mg tablet 100 mg PO TID Rx Instructions: Hold for SBP less than 130 mmHg aspirin 81 MG tablet,chewable 81 mg PO QHS amlodipine 10 mg tablet 10 mg PO DAILY doxazosin 4 mg tablet 4 mg PO QHS carvedilol 25 mg tablet 25 mg PO BID ferrous sulfate [Feosol] 325 mg (65 mg iron) tablet 325 mg PO DAILY 30 Days Qty: 0 0RF bumetanide 1 mg tablet 1 mg PO BIDCM 30 Days Qty: 60 0RF Rx Instructions: Hold for 2 days, repeat BMP and then start from 09/28/2022 lisinopril 40 mg tablet 40 mg PO DAILY Patient Comments: TAKE 1 TABLET BY MOUTH ONCE DAILY atorvastatin 80 mg tablet 80 mg PO QHS ezetimibe 10 mg tablet 10 mg PO QHS sertraline 50 mg tablet 50 mg PO DAILY Qty: 90 3RF Referrals / Follow Up: Virginie Lockhart MD [Primary Care Provider] - Within 1 Week Rajesh Foss DO [Med Staff - Active Staff] - See Referral Note (Please call for an appointment tomorrow to be seen within the next 2 months for repeat EGD and hospital follow-up) Disposition Disposition (needs filled in before D/C Order can be placed): Home, Self Care Charges/Coding Visit Charges Inpatient E&M: 24264 Disch Hosp >30min
--- NOTE | 2022-11-14 15:52 | CASEMGMT ---
Patient has order for discharge. RN CM in to discuss needs at discharge (patient's sig. other, Rita, is also at his beside, per patient's permission). Patient denies needs at this time. Rita states she does have patient's home oxygen tank in the car for discharge. Patient had no further questions/concerns at this time. Arabella RANGELN, RN, CM
[2022-11-16 04:07] LABS: Deamidated Gliadin IgA 5 units (0-19); Deamidated Gliadin IgG 2 units (0-19); Endomysial Antibody IgA Negative (Negative); Immunoglobulin A 243 mg/dL (61-437); Immunoglobulin E 104 IU/mL (6-495); Immunoglobulin G 1013 mg/dL (603-1613); Immunoglobulin M 80 mg/dL (15-143); t-Transglutaminase IgA <2 U/mL (0-3)
== END 2022-11-14 17:07 | disposition home or self-care (01) | DRG 177 ==
LOC: ED 17:55 → PCU 18:30
PROVIDERS: Anesthesiology; Internal Medicine Gastroenterology; Admitting Provider Internal Medicine; Emergency Provider Emergency Medicine; PCP Internal Medicine; Visit Provider Internal Medicine
PROC: 0DJD8ZZ Inspection of Lower Intestinal Tract, Via Natural or Artificial Opening Endoscopic (ICD-10-PCS; CPT 45378; principal; 2022-11-13 15:10)
DX: J15.1 Pneumonia due to Pseudomonas (principal); J96.21 Acute and chronic respiratory failure with hypoxia; K29.51 Unspecified chronic gastritis with bleeding; I13.0 Hypertensive heart and chronic kidney disease with heart failure and stage 1 through stage 4 chronic kidney disease, or unspecified chronic kidney disease; I50.32 Chronic diastolic (congestive) heart failure; N18.4 Chronic kidney disease, stage 4 (severe); I27.21 Secondary pulmonary arterial hypertension; D63.1 Anemia in chronic kidney disease; J84.10 Pulmonary fibrosis, unspecified; I48.0 Paroxysmal atrial fibrillation; F32.A Depression, unspecified; I65.23 Occlusion and stenosis of bilateral carotid arteries; G47.33 Obstructive sleep apnea (adult) (pediatric); J20.9 Acute bronchitis, unspecified; E78.5 Hyperlipidemia, unspecified; I25.10 Atherosclerotic heart disease of native coronary artery without angina pectoris; D72.829 Elevated white blood cell count, unspecified; D50.9 Iron deficiency anemia, unspecified; K57.30 Diverticulosis of large intestine without perforation or abscess without bleeding; K63.5 Polyp of colon; K64.1 Second degree hemorrhoids; K22.70 Barrett's esophagus without dysplasia; K44.9 Diaphragmatic hernia without obstruction or gangrene; K31.819 Angiodysplasia of stomach and duodenum without bleeding; N40.0 Benign prostatic hyperplasia without lower urinary tract symptoms; R73.9 Hyperglycemia, unspecified; F41.1 Generalized anxiety disorder; Z79.82 Long term (current) use of aspirin; Z99.81 Dependence on supplemental oxygen; Z20.822 Contact with and (suspected) exposure to COVID-19; Z87.891 Personal history of nicotine dependence; Z86.73 Personal history of transient ischemic attack (TIA), and cerebral infarction without residual deficits; Z95.1 Presence of aortocoronary bypass graft; K55.20 Angiodysplasia of colon without hemorrhage
CPT/HCPCS: 36415; 71045; 71046; 80048; 81002; 82274; 82607; 82728; 82784; 82785; 83516; 83540; 83550; 83735; 83880; 84100; 84450; 84460; 84484; 85025; 85045; 85610; 85730; 86225; 86235; 86255; 86850; 86900; 86901; 86920; 86922; 87070; 87077; 87184; 87186; 87205; 87428; 87811; 88305; 88313; 88341; 88342; 93005; 94640; 94660; 94667; 94668; 99285; J7030; J7050; J7120; P9016; A4216; J1940; J2405; J2916

== ENCOUNTER 2022-11-26 10:09 | Outpatient (RCR) | payer MEDICARE, OTHER, SELFPAY ==
[2022-11-26 12:07] LABS: Hemoglobin 8.9 g/dL (13.0-16.5)
[2022-11-26 12:29] LABS: AST(SGOT) 15 U/L (15-37); Alanine Aminotransfer ALT/SGPT 34 U/L (16-61); Albumin, Serum 2.8 g/dL (3.2-5.0); Alkaline Phosphatase 70 U/L (45-117); Bilirubin, Direct 0.18 mg/dL (0.00-0.30); Globulin 3.4 g/dL (2.2-4.2); Protein, Total 6.2 g/dL (6.4-8.2)
== END 2022-12-01 23:59 ==
LOC: BIMLAB 10:09
PROVIDERS: Internal Medicine Gastroenterology; PCP Internal Medicine
DX: D64.9 Anemia, unspecified (principal); K92.2 Gastrointestinal hemorrhage, unspecified; Z79.899 Other long term (current) drug therapy
CPT/HCPCS: 36415; 80076; 85014; 85018

== ENCOUNTER → 2023-06-04 | Outpatient (CLI) | payer MEDICARE, OTHER, SELFPAY ==
--- NOTE | 2023-06-04 13:46 | CDU_ITS ---
Reason For Study: Carotid stenosis Rt. Velocities/BP Lt. Velocities/BP Prox CCA 100.3/5.8 cm/sec. Prox CCA 52.6/7.8 cm/sec. Mid CCA 74/10.2 cm/sec. Mid CCA 54.7/9.8 cm/sec. Dist CCA 39.9/6.9 cm/sec. Dist CCA 92/14.6 cm/sec. Prox ICA 68.3/14.2 cm/sec. Prox ICA 99/17 cm/sec. Mid ICA 130.6/19.3 cm/sec. Mid ICA 111.8/13.3 cm/sec. Dist ICA 127.1/19.4 cm/sec. Dist ICA 165.3/22.6 cm/sec. Rt. ICA/CCA = 1.76. Lt. ICA/CCA = 3.02. Prox ECA 425.3/26 cm/sec. Prox ECA 452.3/22.8 cm/sec. Rt. Vert. 23.2 cm/sec. Lt. Vert. 84.1/18.2 cm/sec. Right Extracranial There is heterogeneous, irregular atherosclerotic plaque noted in the right common carotid artery. There is heterogeneous, irregular atherosclerotic plaque noted in the right internal carotid artery. The right internal carotid artery is very tortuous. There is intimal thickening but no significant atherosclerotic plaque noted in the right external carotid artery. Antegrade flow is noted in the right vertebral artery. Left Extracranial There is heterogeneous, irregular atherosclerotic plaque noted in the left common carotid artery. There is heterogeneous, irregular atherosclerotic plaque noted in the left internal carotid artery. Stent noted in CCA distal to ICA mid. There is heterogeneous, irregular atherosclerotic plaque noted in the left external carotid artery. Antegrade flow is noted in the left vertebral artery. Procedure Carotid Duplex 99768. This is a Carotid Duplex examination using B-mode, color flow and specral Doppler. Exam performed in department. VL/Carotid Duplex Ultrasound Interpretation Summary Heterogenous plaque within the right internal carotid artery with significant t ortuosity noted. Postoperative changes noted. Less than 50% stenosis right internal carotid artery Greater than 50% stenosis right external carotid artery Irregular plaque within the left internal carotid artery with indwelling stent noted. No recurrent stenosis within the stent identified however distal to the stent v elocities are slightly elevated with the internal carotid artery of undetermined significance . This is in an area of tortuosity. Greater than 50% stenosis left external carotid artery Low flow noted in the right vertebral with normal flow noted in the left verteb ral. There is likely no change in the bilateral internal carotid arteries from the p revious exam of June 06, 2022. Previously bilateral vertebral arteries had high flow rates. Possible evolving proximal stenosis of the right vertebral. Ordering Physician: Ferny Chu Referring Physician: Virginie Lockhart Performed By: Karena Alas RVT and Student
== END | disposition home or self-care (01) ==
LOC: CVS 13:46
PROVIDERS: PCP Internal Medicine; Referring Provider Surgery; Visit Provider Surgery
DX: I65.23 Occlusion and stenosis of bilateral carotid arteries (principal)
CPT/HCPCS: 93880

== ENCOUNTER 2023-08-02 08:39 | Outpatient (CLI) | payer MEDICARE, OTHER, SELFPAY ==
--- NOTE | 2023-08-02 08:40 | RDU_ITS ---
Reason For Study: CKS stage 3b Right Renal Artery Left Renal Artery Right renal artery ostium Left renal artery ostium 275/8.9 107.8/11.9 RSV/EDV. PSV/EDV. Right renal artery proximal Left renal artery proximal PSV/EDV 123.3/14.5 PSV/EDV. 110.4/9.3 . Right renal artery mid 59.5/12.1 Left renal artery mid 31.4 PSV/EDV. PSV/EDV . Right Renal Parenchyma Left renal artery distal 94.2/10.2 Upper Pole Medula 45.3/5.1 PSV/EDV. PSV/EDV. Right upper pole medulla EDR 0.1 . Left Renal Parenchyma Right upper pole medulla R.I. Left upper pole medulla 26.7/4.2 0.89 . PSV/EDV . Upper Igor Cortx 16.8/3.3 PSV/EDV. Left upper pole medulla EDR 0.2 . Right upper pole cortex EDR 0.2 . Left upper pole medulla R.I. 0.84 . Right upper pole cortex R.I. 0.80 . UP Cortex 15.2/6.9 PSV/EDV. Right lower Pole medulla 17.4/5.8 Left upper pole cortex EDR 0.5 . PSV/EDV . Left upper pole cortex R.I. 0.54 . Right lower pole medulla EDR 0.3 . Left lower Pole medulla 21.8/3.1 Right lower pole medulla R.I. PSV/EDV . 0.66 . Left lower pole medulla EDR 0.1 . Lower Pole Cortex 18.6/4.6 PSV/EDV. Left lower pole medulla R.I. 0.86 . Right lower pole cortex EDR 0.2 . Lower Pole Cortx 13/3.1 PSV/EDV. Right lower pole cortex R.I. 0.75 . Left lower pole cortex EDR 0.2 . Right Renal Hilar Left lower pole cortex R.I. 0.76 . Right Hilar avg 55.3/6 PSV/EDV. Left Renal Hilar Right hilar acceleration time 50 LT Hilar avg 63.4/8.1 PSV/EDV . m/sec. Left hilar acceleration time 40 Right Renal Dimensions m/sec. Right kidney size 9.04 cm . Left Renal Dimensions Right cortical dimension 1.31 cm . Left kidney size 10.13 cm . Left cortical dimension 1.47 cm . Aorta Proximal abdominal aorta 0.95 x 0.98 cm . Distal abdominal aorta 0.88 x 0.92 cm . Proximal abdominal aorta peak systolic velocity is 173.3 cm/sec . Distal abdominal aorta peak systolic velocity is 65 cm/sec . Accreditation Technically difficult study. VL/Renal Artery Duplex Ultrasound Interpretation Summary Right renal artery patent with normal velocities and no evidence of stenosis. Left renal artery patent with < 60% stenosis, though elevated aortic velocity m ay create artifact. Alternative imaging may be beneficial. Right renal vein patent. Left renal vein patent. Right kidney normal in size. Left kidney normal in size. Ordering Physician: Gris Leal Referring Physician: Virginie Lockhart Performed By: Karena Alas RVT and Student
== END 2023-08-02 23:59 | disposition home or self-care (01) ==
LOC: CVS 08:40
PROVIDERS: PCP Internal Medicine; Referring Provider Internal Medicine Nephrology; Visit Provider Internal Medicine Nephrology
DX: N18.32 Chronic kidney disease, stage 3b (principal); I70.1 Atherosclerosis of renal artery
CPT/HCPCS: 93975

== ENCOUNTER → 2023-08-30 | Outpatient (CLI) | payer MEDICARE, OTHER, SELFPAY ==
--- NOTE | 2023-08-30 08:49 | ART_ITS ---
Reason For Study: PVD Procedure A bilateral lower extremity continuous wave Doppler with analog waveform analysis,segmental pressures,and ankle brachial indexes without exercise. Left Segmental Pressures Left brachial= 180mmHg. Left posterior tibial artery = 98mmHg. Left dorsalis pedis artery = 80mmHg. Left digit = 42 mmHg. The left dorsalis pedis waveforms are monophasic. The left posterior tibial artery waveforms are monophasic. Right Segmental Pressures Right brachial= 181mmHg. Right posterior tibial artery = 79mmHg. Right dorsalis pedis artery = 75mmHg. Right digit = 35 mmHg. The right dorsalis pedis waveforms are monophasic. The right posterior tibial artery waveforms are monophasic. Indices The right ankle brachial index by the dorsalis pedis is 0.41. The right ankle brachial index by the posterior tibial artery is 0.44. The right digital-brachial index is 0.19. The left ankle brachial index by the dorsalis pedis is 0.44. The left ankle brachial index by the posterior tibial artery is 0.54. The left digital-brachial index is 0.23. VL/Lower Ext Art Exam w/o Exercis Interpretation Summary Abnormal right lower extremity posterior tibialis and dorsalis pedis ankle-brac hial indices at rest at 0.44 and 0.41 respectively with monophasic Doppler waveforms consistent with severe occlusive disease. The right digital brachial index significantly abnormal at 0.19 Abnormal left lower extremity posterior tibialis and dorsalis pedis ankle-brach ial indices at rest at 0.54 and 0.44 respectively with monophasic Doppler waveforms consistent with a severe occlusive disease Left digital brachial index abnormal at 0.23 Ordering Physician: Logan Arzate Referring Physician: Virginie Lockhart Performed By: Karena Alas RVT
== END | disposition home or self-care (01) ==
LOC: CVS 08:48
PROVIDERS: PCP Internal Medicine; Referring Provider Podiatrist; Visit Provider Podiatrist
DX: I73.89 Other specified peripheral vascular diseases (principal)
CPT/HCPCS: 93923

== ENCOUNTER → 2023-10-04 | Outpatient (CLI) | payer MEDICARE, OTHER, SELFPAY | END | disposition home or self-care (01) | LOC: PSN 11:34 | PROVIDERS: PCP Internal Medicine; Referring Provider Nurse Practitioner Gerontology; Visit Provider Nurse Practitioner Gerontology | DX: R00.1 Bradycardia, unspecified (principal) | CPT/HCPCS: 93225; 93226 ==

== ENCOUNTER → 2023-10-08 | Outpatient (CLI) | payer MEDICARE, OTHER, SELFPAY ==
--- NOTE | 2023-10-08 14:56 | STRESSREP ---
Stress Test Report Pharmacologic myocardial perfusion stress test. 78-year-old man with a history of coronary artery disease Resting EKG demonstrates sinus bradycardia with a rate of 49 bpm. Resting blood pressure is 224/64 mmHg. 0.4 mg of regadenoson was infused per usual protocol followed by rapid intravenous saline flush injection. Continuous EKG monitoring was performed. The maximum heart rate was 83 bpm which was 58% of max impacted heart rate the maximum workload was 1 metabolic equivalent. At rest there were no ST or T wave changes noted to suggest ischemia and at peak infusion nonspecific ST changes were noted which did not meet the criteria for ischemia. No clinical angina is noted. The final blood pressure was 202/60 mmHg. Myocardial perfusion protocol. 11.3 mCi of technetium 99m sestamibi was injected at rest. 0.4 mg of regadenoson was infused per usual protocol. At peak infusion 31 mCi of technetium 99m sestamibi was injected stress images were obtained stress and rest images were reconstructed and compared in the short axis vertical long and horizontal long axis. Gated images were also obtained. Perfusion SPECT analysis: Review of the stress images demonstrate normal uptake of tracer noted in all areas of the myocardium. The resting images similar demonstrated normal uptake of tracer noted in all areas of the myocardium. No areas of reversibility are noted to suggest ischemia and no previous infarct is noted. Gated SPECT analysis: The gated ejection fraction is 52%. Conclusion: Normal pharmacologic myocardial perfusion stress test. Preserved ejection fraction. Resting hypertension
== END | disposition home or self-care (01) ==
LOC: CVS 07:00
PROVIDERS: PCP Internal Medicine; Referring Provider Nurse Practitioner Gerontology; Visit Provider Nurse Practitioner Gerontology
DX: I25.10 Atherosclerotic heart disease of native coronary artery without angina pectoris (principal); Z95.1 Presence of aortocoronary bypass graft
CPT/HCPCS: 78452; 93017; A9500; A4216; J2785

== ENCOUNTER → 2023-10-25 | Outpatient (CLI) | payer MEDICARE, OTHER, SELFPAY ==
[2023-10-25 12:57] LABS: AST(SGOT) 14 U/L (15-37); Alanine Aminotransfer ALT/SGPT 17 U/L (16-61); Alkaline Phosphatase 95 U/L (45-117); Anion Gap 7 (5-15); BUN 66 mg/dL (7-18); BUN/Creat Ratio 26.3 RATIO (10-20); Bilirubin, Direct 0.12 mg/dL (0.00-0.30); Chloride 109 mmol/L (98-107); Cholesterol 151 mg/dL (200); Creatinine, Serum 2.51 mg/dL (0.70-1.30); EST Glomerular Filtration Rate 27 mL/min (>60); Est Glom Filt Rate - Afr Amer 32 mL/min (>60); Globulin 4.5 g/dL (2.2-4.2); Glucose 98 mg/dL (74-106); High Density Lipoprotein 58 mg/dL; Potassium 5.3 mmol/L (3.5-5.1); Protein, Total 7.5 g/dL (6.4-8.2); Sodium Level 138 mmol/L (136-145); Triglycerides 64 mg/dL; Very Low Density Lipoprotein 13 mg/dL (5-40)
[2023-10-25 19:58] LABS: PSA,Total- Diagnostic 1.93 ng/mL (0.0-4.0)
== END | disposition home or self-care (01) ==
LOC: BIMLAB 10:46
PROVIDERS: PCP Internal Medicine; Referring Provider Nurse Practitioner Gerontology; Visit Provider Nurse Practitioner Gerontology
DX: E78.5 Hyperlipidemia, unspecified (principal); N40.0 Benign prostatic hyperplasia without lower urinary tract symptoms; I10 Essential (primary) hypertension
CPT/HCPCS: 36415; 80048; 80061; 80076; 84153

== ENCOUNTER 2023-10-30 09:55 | Day surgery (SDC) | payer MEDICARE, OTHER, SELFPAY ==
[2023-10-30 10:21] LABS: Absolute Neutrophil Count 5.8 X10^3/uL (2.0-7.7); Basophil# 0.07 X10^3/uL; Basophil% 0.9 % (0-1); Eosinophil# 0.31 X10^3/uL; Eosinophils% 3.9 % (0-5); Hematocrit 47.1 % (40-54); Mean Corp Hgb Conc 31.8 g/dL (32-36); Mean Corpuscular Hgb 29.6 pg (27.0-32.0); Mean Corpuscular Volume 93.1 fL (80-94); Mean Platelet Vol. 9.9 fl (6.2-12.0); Monocyte# 0.59 X10^3/uL; Monocyte% 7.5 % (0-10); NRBC Flagged by Analyzer 0 % (0-5); Neutrophil # 5.78 X10^3/uL (2.7-7.7); Neutrophil % 73.3 % (47-70); Platelet Count 212 K/mm3 (150-450); RBC Distribution Width CV 17.8 % (11.6-14.6); RBC Distribution Width SD 61.3 fl (35.1-43.9); Red Blood Count 5.06 M/mm3 (4.6-6.2); White Blood Count 7.9 K/mm3 (4.4-11.0)
[2023-10-30 10:27] VITALS: BMI 21.7
[2023-10-30 10:40] LABS: Anion Gap 9 (5-15); BUN 87 mg/dL (7-18); BUN/Creat Ratio 27.8 RATIO (10-20); Calcium,Total 9.2 mg/dL (8.5-10.1); Chloride 114 mmol/L (98-107); Creatinine, Serum 3.13 mg/dL (0.70-1.30); EST Glomerular Filtration Rate 21 mL/min (>60); Est Glom Filt Rate - Afr Amer 25 mL/min (>60); Estimated Creatinine Clearance 17.85 ml/min; Glucose 111 mg/dL (74-106); Potassium 5.3 mmol/L (3.5-5.1); Sodium Level 142 mmol/L (136-145)
--- NOTE | 2023-10-30 12:45 | HP.PCM_ITS ---
HPI - General HPI Narrative EKTA CONWAY, is a 78 M who presents with PAD, prior iliac interventions, right foot digit that requires amputation. His non-invasive studies suggest inadequate perfusion for healing. He has CKD so no contrast based imaging could be obtained. [facility] Medical History Stage III chronic kidney disease BPH (benign prostatic hyperplasia) Insomnia Anemia GI bleed Anxiety Depression Kidney disease Former smoker On home oxygen therapy Atrial fibrillation Coronary artery disease Hypertension Respiratory failure with hypoxia CHF (congestive heart failure) Hypoxia Hemoptysis Hypoxia Interstitial lung disease Chronic cough Flu vaccine need Increased sputum production Generalized anxiety disorder Diarrhea Varicose veins of both lower extremities Arthritis Secondary pulmonary arterial hypertension FRANCISCO JAVIER (obstructive sleep apnea) Pleural effusion due to CHF (congestive heart failure) (08/27/19) Diverticulitis Hypoxia Elevated troponin (04/07/19) PND (post-nasal drip) Transient ischemic attack Anemia in chronic kidney disease (CKD) CVA (cerebral vascular accident) Stenosis of left subclavian artery Chronic kidney disease, stage 3 Renal artery stenosis Paroxysmal atrial flutter Bilateral carotid artery stenosis Peripheral vascular occlusive disease Atherosclerosis of coronary artery of [place] heart without angina pectoris Essential (primary) hypertension Hyperlipidemia Chronic diastolic (congestive) heart failure GERD (gastroesophageal reflux disease) Gout Arthritis Home Medications ?Medication ?Instructions ?Recorded ?Last Taken ?Type aspirin 81 mg chewable tablet 81 mg PO QHS Heart 08/03/19 08/24/19 History ascorbate calcium (vitamin C) 500 500 mg PO DAILY vitamin 09/28/20 Unknown History mg tablet nitroglycerin 0.4 mg sublingual 0.4 mg sublingual PRN PRN Angina 08/14/22 Unknown Rx tablet #25 tabs atorvastatin 80 mg tablet 80 mg PO QHS cholesterol lowering 12/10/22 Unknown Rx #90 tabs ferrous sulfate 325 mg (65 mg 325 mg PO BID supplement 01/16/23 Unknown History iron) tablet (Feosol) bumetanide 1 mg tablet 1 mg PO BIDCM Check with primary 05/06/23 Unknown Rx doctor 3 months #180 tabs doxazosin 4 mg tablet 4 mg PO QHS prostate #90 tabs 08/01/23 Unknown Rx isosorbide mononitrate 60 mg 60 mg PO DAILY #90 tabs 08/01/23 10/30/23 Rx tablet,extended release 24 hr ezetimibe 10 mg tablet 10 mg PO QHS cholesterol #90 tabs 09/02/23 Unknown Rx amlodipine 10 mg tablet 10 mg PO DAILY blood pressure #90 09/11/23 10/30/23 Rx tabs hydralazine 100 mg tablet 100 mg PO TID #270 tabs 09/25/23 10/30/23 Rx pirfenidone 267 mg tablet 801 mg PO TID 09/25/23 Unknown History sertraline 50 mg tablet 50 mg PO DAILY mental health #90 10/16/23 Unknown Rx tabs carvedilol 3.125 mg tablet 3.125 mg PO BID blood pressure #60 10/17/23 10/30/23 Rx tabs lisinopril 20 mg tablet 20 mg PO DAILY #30 tabs 10/29/23 Unknown Rx Allergy/AdvReac Type Severity Reaction Status Date / Time No Known Allergies Allergy Verified 09/25/23 10:04 Family History Son CAD (coronary artery disease) Brother CAD (coronary artery disease) Diabetes Brother CAD (coronary artery disease) Diabetes Other Anemia Arthritis CVA (cerebral vascular accident) Hyperlipemia Hypertension Kidney disease Skin cancer Surgical History H/O basal cell carcinoma excision (09/2018) History of left common carotid artery stent placement (2003) History of stent insertion of renal artery (10/01/19) History of angioplasty of peripheral vessel History of left heart catheterization (08/13/12) H/O coronary artery bypass surgery (08/14/12) History of herniorrhaphy History of right-sided carotid endarterectomy (05/2016) H/O colonoscopy History of knee replacement Social History Smoking Status: Former smoker Tobacco: How many years used: 15 how long ago did patient quit smokin second hand exposure: No alcohol intake: current alcohol intake frequency: holidays/special occasions only substance use type: does not use caffeine: Yes ROS Constitutional Constitutional: Denies chills, fever(s), frequent falls, lethargy or weakness Eyes Eyes: Denies blind spots, change in vision or loss of vision ENT HEENT: Denies bleeding gums, hoarseness or sore throat Cardiovascular Cardiovascular: Denies abdominal pain, bluish discoloration of hand/feet, chest pain with activity, claudication, cold extremities, cyanosis, dyspnea on exertion, erythema on extremities, irregular heart rhythm, leg edema, leg ulcers, numbness in extremities or weakness in extremities Respiratory/Chest Respiratory/Chest: Denies cough, excessive phlegm production, shortness of breath at rest, shortness of breath with exertion or wheezing Gastrointestinal Gastrointestinal: Denies anorexia, change in stool character, constipation, diarrhea, melena or rectal bleeding Genitourinary Genitourinary: Denies dysuria or hematuria Musculoskeletal Musculoskeletal: Denies abnormal gait Integumentary Integumentary: Reports other Details: ; Denies erythema, non-healing lesions or wounds Neurologic Neurologic: Denies abnormal speech, focal weakness, headache(s), loss of vision, numbness, paresthesias or sensory deficit Hematologic/Lymphatic Hematologic/Lymphatic: Denies easy bleeding, easy bruising or lymphadenopathy Vital Signs Vital Signs Vital Signs: Weight Weight: 143 lb Body Mass Index (BMI) 21.7 Physical Exam Const alert, oriented x3, no apparent distress and healthy appearing General Appearance: cooperative; Negative for combative or lethargic Orientation / Consciousness: awake Exam Limitations: no limitations HEENT Head and Scalp: normocephalic and atraumatic Eyes EOMs intact bilaterally General Eye: normal appearance of both eyes Neck full ROM, no lymphadenopathy and thyroid normal General: trachea midline; Negative for lymphadenopathy or tenderness Thyroid: thyroid normal Resp normal respiratory effort, no use of accessory muscles and clear to auscultation bilaterally Effort and Inspection: Negative for labored, stridor or audible wheezes Cardio regular rate and regular rhythm Peripheral Pulses: femoral pulses present Back/Spine Cervical Spine: cervical ROM normal Extremity full ROM, normal capillary refill and no clubbing, cyanosis or edema Skin no rashes or lesions noted and no wounds Neuro oriented x3, CN's II-XII intact bilaterally, no focal motor deficits and no sensory deficits noted Psych thought process normal, cooperative, affect normal, speech normal and activity/motor behavior normal Results Lab / Micro Data 10/30/23 10:05 10/30/23 10:05 Labs: Laboratory Results - last 24 hr 10/30/23 10:05: WBC 7.9, RBC 5.06, Hgb 15.0, Hct 47.1, MCV 93.1, MCH 29.6, MCHC 31.8 L, RDW Std Deviation 61.3 H, RDW Coeff of Lisa 17.8 H, Plt Count 212, MPV 9.9, Immature Gran % (Auto) 0.400, Neut % (Auto) 73.3 H, Lymph % (Auto) 14.0 L, Gila % (Auto) 7.5, Eos % (Auto) 3.9, Baso % (Auto) 0.9, Absolute Neuts (auto) 5.8, Absolute Lymphs (auto) 1.10, Nucleated RBC % 0, Sodium 142, Potassium 5.3 H , Chloride 114 H, Carbon Dioxide 19.0 L, Anion Gap 9, BUN 87 H, Creatinine 3.13 H, Estim Creat Clear Calc 17.85, Est GFR (MDRD) Af Amer 25 L, Est GFR (MDRD) Non-Af 21 L, BUN/Creatinine Ratio 27.8 H, Glucose 111 H, Calcium 9.2 Assessment & Plan Assessment/Plan (1) Atherosclerosis of [place] arteries of extremities with rest pain, right leg: PLAN: -CO2 angio
--- NOTE | 2023-10-30 16:00 | OP.PCM_ITS ---
Report of Operation Date of Procedure: 10/30/23 Pre-Operative Diagnosis: atherosclerosis with rest pain, right lower extremity Post-Operative Diagnosis: same Surgery/Procedure Performed:: aortogram, RLE runoff Surgeon: Lauri Corral Type of Anesthesia: Local and Sedation,Conscious Estimated Blood Loss (mL): 2 Description of Procedure: HPI: Patient is a 78-year-old male with right lower extremity toe deformity with overlap causing significant pain. He is felt to be most appropriate for toe amputation by podiatry however he has severe arterial insufficiency with mult iple prior interventions and also has history of significant chronic kidney disease and is unable to have IV contrast for CT angiography. He presents now for angiogram with possible intervention using CO2. Description of procedure: Upon obtaining form consent and verification correct patient procedure site patient taken to the [facility] [employer] he was positioned prepped and draped in usual sterile fashion. Time was performed conscious sedation administered Versed and fentanyl. Ultrasound was used to evaluate the left common femoral artery which was found to be patent but with significant atherosclerosis particularly distally. There was a portion that was soft enough for access at the more superior aspect however there was some posterior plaque in this location. Skin overlying the area was anesthetized 1% lidocaine the vessel accessed under ultrasound guidance with a micropuncture needle wire. This then exchanged for micropuncture sheath through which a Bentson wire was advanced and the micropuncture sheath exchanged for a 5 Georgian sheath. Through the 5 Georgian sheath and Omni Flush catheter and the Bentson wire were used to navigate to the ipsilateral iliac artery stents that was able to navigate though with some significant effort. There appeared to be an area of either significant plaque or stenosis in the segment between the 2 stents and an area that appeared to coincide with the superior aspect of the external iliac artery. Once we able to navigate into the abdominal aorta the catheter was advanced and the wire withdrawn. Digital subtraction CO2 angiography was performed of the abdominal aorta and the bilateral iliac arteries. This revealed a small caliber but patent abdominal aorta with scattered diffuse atherosclerosis and calcification but no significant stenosis. The left common and external iliac stents were patent with a segment of stenosis in the proximal external iliac artery. The right common and external leg artery stents were patent with calcified atherosclerosis but no significant stenosis though was limited due to bowel gas. Next a Glidewire was advanced and the Omni Flush catheter exchanged for an IM catheter and we able to navigate into the contralateral iliac system advancing the catheter into the distal external iliac artery. From this position CO2 subtraction angiography was performed of the right lower extremity sequentially. After imaging was obtained we then performed a total of 3 hand- injection contrast angiography images to further define the iliac disease as well as to further define the distal popliteal tibial disease. The right common and external iliac arteries had moderate diffuse atherosclerosis but no significant stenosis was identified. The right common femoral artery had significant calcified atherosclerosis but appeared to have no significant focal stenosis. The profundofemoral artery was large in caliber with multiple branches and collaterals with no significant atherosclerosis or stenosis. The superficial femoral artery was occluded at its origin with no reconstitution identified until the P3 segment of the popliteal artery. The anterior tibial artery filled preferentially first via collaterals from the profunda and was the dominant runoff to the foot with patent vessel with no significant atherosclerosis or stenosis. This also provided retrograde filling into the distal popliteal artery and subsequently filled the tibioperoneal trunk and the peroneal artery which was mildly diseased throughout but patent to the ankle. Seeing no lesions that were appropriate for intervention wires and catheters were withdrawn and a 5 manage Mynx device attempted however the balloon popped on the femoral plaques and manual pressure was held until hemostasis was noted. The patient was taken the recovery room with plans to discharge home.
== END 2023-10-30 18:09 | disposition home or self-care (01) ==
PROVIDERS: PCP Internal Medicine; Referring Provider Surgery Trauma Surgery; Visit Provider Surgery Trauma Surgery
DX: I70.221 Atherosclerosis of native arteries of extremities with rest pain, right leg (principal); I13.0 Hypertensive heart and chronic kidney disease with heart failure and stage 1 through stage 4 chronic kidney disease, or unspecified chronic kidney disease; I50.32 Chronic diastolic (congestive) heart failure; N18.30 Chronic kidney disease, stage 3 unspecified; Z87.891 Personal history of nicotine dependence; Z95.820 Peripheral vascular angioplasty status with implants and grafts; M79.674 Pain in right toe(s); D63.1 Anemia in chronic kidney disease; E78.5 Hyperlipidemia, unspecified; I25.10 Atherosclerotic heart disease of native coronary artery without angina pectoris; K21.9 Gastro-esophageal reflux disease without esophagitis; Z79.899 Other long term (current) drug therapy
CPT/HCPCS: 36200; 36245; 36415; 75625; 75710; 76937; 80048; 85025; 99152; 99153; C1753; C1760; C1769; C1894; J7040; Q9967

== ENCOUNTER 2023-12-04 13:05 | Outpatient (RCR) | payer MEDICARE, OTHER, SELFPAY ==
[2023-12-04 15:20] LABS: Hematocrit 40.2 % (40-54); Hemoglobin 12.6 g/dL (13.0-16.5); Mean Corp Hgb Conc 31.3 g/dL (32-36); Mean Corpuscular Hgb 28.9 pg (27.0-32.0); Mean Corpuscular Volume 92.2 fL (80-94); Mean Platelet Vol. 11.3 fl (6.2-12.0); Platelet Count 119 K/mm3 (150-450); RBC Distribution Width CV 16.1 % (11.6-14.6); RBC Distribution Width SD 54.4 fl (35.1-43.9); Red Blood Count 4.36 M/mm3 (4.6-6.2); White Blood Count 10.5 K/mm3 (4.4-11.0)
[2023-12-04 15:36] LABS: BUN 68 mg/dL (7-18); BUN/Creat Ratio 22.9 RATIO (10-20); Calcium,Total 8.7 mg/dL (8.5-10.1); Chloride 107 mmol/L (98-107); Creatinine, Serum 2.97 mg/dL (0.70-1.30); EST Glomerular Filtration Rate 22 mL/min (>60); Est Glom Filt Rate - Afr Amer 26 mL/min (>60); Glucose 108 mg/dL (74-106); Phosphorus 3.7 mg/dL (2.5-4.9); Potassium 5.4 mmol/L (3.5-5.1); Sodium Level 137 mmol/L (136-145)
[2023-12-04 15:52] LABS: Protein, Urine (Random) 108.3 mg/dL (<11.9); Protein:Creat Ratio 1552 mg/g CRE (0-200)
== END 2024-01-02 23:59 ==
LOC: BIMLAB 13:05
PROVIDERS: PCP Internal Medicine; Referring Provider Internal Medicine Nephrology; Visit Provider Internal Medicine Nephrology
DX: N18.32 Chronic kidney disease, stage 3b (principal); D63.1 Anemia in chronic kidney disease
CPT/HCPCS: 36415; 80069; 82570; 84156; 85027

== ENCOUNTER → 2023-12-25 | Outpatient (CLI) | payer MEDICARE, OTHER, SELFPAY ==
--- NOTE | 2023-12-25 08:49 | RDU_ITS ---
Reason For Study: HTN Right Renal Artery Left Renal Artery Right renal artery mid 52.8/9.0 Left renal artery ostium 221.9/29.8 PSV/EDV. PSV/EDV. Limited Views Obtained Left renal artery proximal PSV/EDV Unable to calculate RAR / Elevated 108.2/14.1 . Aortic Velocities. Left renal artery mid 66.9/12.3 Right Renal Parenchyma PSV/EDV . Upper Pole Medula 54.4/8.3 PSV/EDV. Left renal artery distal 119.0/19.8 Right upper pole medulla EDR 0.20 . PSV/EDV. Right upper pole medulla R.I. 0.85 . Unable to calculate RAR / Elevated Upper Igor Cortx 19.3/6.1 PSV/EDV. Aortic Velocities. Right upper pole cortex EDR 0.30 . Left Renal Parenchyma Right upper pole cortex R.I. 0.68 . Left upper pole medulla 23.3/3.0 Right lower Pole medulla 36.0/7.1 PSV/EDV . PSV/EDV . Left upper pole medulla EDR 0.10 . Right lower pole medulla EDR 0.20 . Left upper pole medulla R.I. 0.87 . Right lower pole medulla R.I. 0.80 . UP Cortex 11.6/4.2 PSV/EDV. Lower Pole Cortex 8.1/2.8 PSV/EDV. Left upper pole cortex EDR 0.40 . Right lower pole cortex EDR 0.20 . Left upper pole cortex R.I. 0.63 . Right lower pole cortex R.I. 0.80 . Left lower Pole medulla 19.0/6.1 Right Renal Hilar PSV/EDV . Right Hilar avg 57.2/9.3 PSV/EDV. Left lower pole medulla EDR 0.30 . Right hilar acceleration time 20 Left lower pole medulla R.I. 0.68 . m/sec. Lower Pole Cortx 17.7/4.2 PSV/EDV. Right Renal Dimensions Left lower pole cortex EDR 0.20 . Right kidney size 9.25 cm . Left lower pole cortex R.I. 0.76 . Right cortical dimension 1.20 cm . Left Renal Hilar Anechoic non vascularized area LT Hilar avg 73.8/10.2 PSV/EDV . measuring approximately 1.19cm x Left hilar acceleration time 20 1.09cm noted in Rt Kidney. m/sec. Left Renal Dimensions Left kidney size 10.24 cm . Left cortical dimension 1.11 cm . Aorta Proximal abdominal aorta 0.93 x 0.97 cm . Proximal abdominal aorta peak systolic velocity is 180.8 cm/sec . Distal abdominal aorta 0.82 x 0.82 cm . Distal abdominal aorta peak systolic velocity is 38.4 cm/sec . Procedures Renal Artery Duplex with B-mode, color and pulsed wave doppler. Limited Views obtained. Study is of poor technical quality due to patient labored breathing and acoustic shadowing of vessels. VL/Renal Artery Duplex Ultrasound Interpretation Summary Right renal artery patent with normal velocities and no evidence of stenosis. L eft renal artery patent with < 60% stenosis. Right renal vein patent. Left renal vein patent. Ri ght kidney normal in size. Left kidney normal in size. Right renal artery patent with normal velocit ies and no evidence of stenosis, limited evaluation. Left renal artery patent with < 60% stenosis, though renal-aortic ratio not acc urate due to aortic velocities. Right renal vein patent. Left renal vein patent. Right kidney normal in size. Left kidney normal in size. Anechoic non vascularized area measuring approximately 1.19cm x 1.09cm noted in right kidney. Limited study, alternative imaging modality may be beneficial. Ordering Physician: Virginie Lockhart Referring Physician: Kallie Fountain Performed By: Ze Augustin RVT
--- OUTSIDE RECORDS SUMMARY | 2023-12-25 09:10 | XMS RPT_ITS | CCD ---
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 Name Role Phone JOSEERICKA OLIVEROSNETH E Unavailable Unavailable JOSE, MARIO E Unavailable Unavailable JOSE, MARIO E Unavailable Unavailable JOSE, MARIO E Unavailable Unavailable JOSE, MARIO Unavailable Unavailable JOSE, MARIO Unavailable Unavailable JOSE, MARIO Unavailable Unavailable JOSE, MARIO Unavailable Unavailable Oscar Jeremiah Unavailable Unavailable JOSE, MARIO Unavailable Unavailable ERICKA GARCIANETH Unavailable Unavailable Jeremiah Moore Unavailable Unavailable Franky Lockhart MD Primary Care Provider [phone] Franky Lockhart MD Primary Care Provider [phone] Franky Lockhart MD Primary Care Provider [phone] NAVA NI MD Admitting Unavailab NAVA Cantu MD Primary Care Unavailab NAVA Cantu MD Attending Unavailab JEREMIAH Mckeon MD Consulting Unavailable PROVIDER, UNKNOWN Consulting Unavailable NAVA NI MD Admitting Unavailab NAVA Cantu MD Primary Care Unavailab NAVA Cantu MD Attending Unavailab JEREMIAH Mckeon MD Consulting Unavailable PROVIDER, UNKNOWN Consulting Unavailable NAVA NI MD Primary Care Unavailab NAVA Cantu MD Attending UnavailNAVA Leger MD Admitting Unavailab JEREMIAH Mckeon MD Consulting Unavailable PROVIDER, UNKNOWN Consulting Unavailable NAVA NI MD Primary Care Unavailab NAVA Cantu MD Attending Unavailab le NAVA NI MD Admitting Unavailab JEREMIAH Mckeon MD Consulting Unavailable LIVE, OLMAN Referring Unavailable PROVIDER, UNKNOWN Consulting Unavailable LAST, NAVA DIAZ Primary Care Unavailab le LASTNAVA ARIZMENDI MD Admitting Unavailab le LAST, NAVA DIAZ Attending Unavailab JEREMIAH Mckeon MD Consulting Unavailable PROVIDER, UNKNOWN Consulting Unavailable LAST, NAVA DIAZ Primary Care Unavailab le LASTNAVA ARIZMENDI MD Admitting Unavailab le JEREMIAH MOORE MD Consulting Unavailable LAST, NAVA DIAZ Attending Unavailab le PROVIDER, UNKNOWN Consulting Unavailable LAST, NAVA DIAZ Primary Care Unavailab le LAST, NAVA DIAZ Admitting Unavailab le LAST, NAVA DIAZ Attending Unavailab le JEREMIAH MOORE MD Consulting Unavailable PROVIDER, UNKNOWN Consulting Unavailable LAST, NAVA DIAZ Primary Care Unavailab le LAST, NAVA DIAZ Admitting Unavailab le JEREMIAH MOORE MD Consulting Unavailable LAST, NAVA DIAZ Attending Unavailab le PROVIDER, UNKNOWN Consulting Unavailable LAST, NAVA DIAZ Primary Care Unavailab le LAST, NAVA DIAZ Admitting Unavailab le LAST, NAVA DIAZ Attending Unavailab le JEREMIAH MOORE MD Consulting Unavailable PROVIDER, UNKNOWN Consulting Unavailable LAST, NAVA DIAZ Primary Care Unavailab le NAVA NI MD Admitting Unavailab le LAST, NAVA DIAZ Attending Unavailab le JEREMIAH MOORE MD Consulting Unavailable PROVIDER, UNKNOWN Consulting Unavailable LAST, NAVA DIAZ Attending Unavailab le LASTNAVA ARIZMENDI MD Admitting Unavailab le LASTNAVA ARIZMENDI MD Primary Care Unavailab le JEREMIAH MOORE MD Consulting Unavailable PROVIDER, UNKNOWN Consulting Unavailable LAST, NAVA DIAZ Primary Care Unavailab le NAVA NI MD Admitting Unavailab le JEREMIAH MOORE MD Consulting Unavailable LAST, NAVA DIAZ Attending Unavailab le PROVIDER, UNKNOWN Consulting Unavailable LAST, NAVA DIAZ Primary Care Unavailab le NAVA NI MD Admitting Unavailab le JEREMIAH MOORE MD Consulting Unavailable LASTNAVA MD Attending Unavailab le PROVIDER, UNKNOWN Consulting Unavailable NAVA NI MD Primary Care Unavailab le NAVA NI MD Admitting Unavailab le JEREMIAH MOORE MD Consulting Unavailable LAST, NAVA DIAZ Attending Unavailab le PROVIDER, UNKNOWN Consulting Unavailable NAVA NI MD Primary Care Unavailab le LAST, NAVA DIAZ Attending Unavailab le LASTNAVA ARIZMENDI MD Admitting Unavailab le JEREMIAH MOORE MD Consulting Unavailable PROVIDER, UNKNOWN Consulting Unavailable LAST, NAVA DIAZ Primary Care Unavailab le LASTNAVA ARIZMENDI MD Attending Unavailab le LAST, NAVA DIAZ Admitting Unavailab le JEREMIAH MOORE MD Consulting Unavailable PROVIDER, UNKNOWN Consulting Unavailable LAST, NAVA DIAZ Primary Care Unavailab le LAST, NAVA DIAZ Attending Unavailab le LAST, NAVA DIAZ Admitting Unavailab le JEREMIAH MOORE MD Consulting Unavailable PROVIDER, UNKNOWN Consulting Unavailable LAST, NAVA DIAZ Primary Care Unavailab le LAST, NAVA DIAZ Attending Unavailab le LASTNAVA ARIZMENDI MD Admitting Unavailab le JEREMIAH MOORE MD Consulting Unavailable PROVIDER, UNKNOWN Consulting Unavailable LAST, NAVA DIAZ Primary Care Unavailab le LASTNAVA ARIZMENDI MD Attending Unavailab le LASTNAVA ARIZMENDI MD Admitting Unavailab le JEREMIAH MOORE MD Consulting Unavailable PROVIDER, UNKNOWN Consulting Unavailable NAVA NI MD Primary Care Unavailab le LASTNAVA ARIZMENDI MD Attending Unavailab le LASTNAVA ARIZMENDI MD Admitting Unavailab le JEREMIAH MOORE MD Consulting Unavailable PROVIDER, UNKNOWN Consulting Unavailable NAVA NI MD Primary Care Unavailab le NAVA NI MD Admitting Unavailab le JEREMIAH MOORE MD Consulting Unavailable LAST, NAVA DIAZ Attending Unavailab le PROVIDER, UNKNOWN Consulting Unavailable NAVA NI MD Primary Care Unavailab NAVA Cantu MD Attending Unavailab le NAVA NI MD Admitting Unavailab le JEREMIAH MOORE MD Consulting Unavailable PROVIDER, UNKNOWN Consulting Unavailable NAVA NI MD Primary Care Unavailab le LAST, JAYAPRAKASH MD Admitting Unavailab le JEREMIAH MOORE MD Consulting Unavailable LAST, NAVA DIAZ Attending Unavailab le PROVIDER, UNKNOWN Consulting Unavailable LASTNAVA ARIZMENDI MD Primary Care Unavailab le LAST, NAVA DIAZ Attending Unavailab le NAVA NI MD Admitting Unavailab le JEREMIAH MOORE MD Consulting Unavailable PROVIDER, UNKNOWN Consulting Unavailable LAST, NAVA DIAZ Attending Unavailab le LASTNAVA ARIZMENDI MD Admitting Unavailab le NAVA NI MD Primary Care Unavailab le OSCARJEREMIAH MD Consulting Unavailable PROVIDER, UNKNOWN Consulting Unavailable LAST, NAVA DIAZ Primary Care Unavailab le LAST, NAVA DIAZ Attending Unavailab le LAST, NAVA DIAZ Admitting Unavailab le JEREMIAH MOORE MD Consulting Unavailable PROVIDER, UNKNOWN Consulting Unavailable LAST, NAVA DIAZ Primary Care Unavailab le LAST, NAVA DIAZ Attending Unavailab le LASTNAVA ARIZMENDI MD Admitting Unavailab le JEREMIAH MOORE MD Consulting Unavailable PROVIDER, UNKNOWN Consulting Unavailable LAST, NAVA DIAZ Attending Unavailab le LASTNAVA ARIZMENDI MD Admitting Unavailab le LASTNAVA ARIZMENDI MD Primary Care Unavailab le JEREMIAH MOORE MD Consulting Unavailable FRANKY LOCKHART MD Referring Unavailable PROVIDER, UNKNOWN Consulting Unavailable NAVA NI MD Admitting Unavailab le NAVA NI MD Primary Care Unavailab le JEREMIAH MOORE MD Consulting Unavailable LASTNAVA ARIZMENDI MD Attending Unavailab le PROVIDER, UNKNOWN Consulting Unavailable NAVA NI MD Admitting Unavailab le NAVA NI MD Primary Care Unavailab le JEREMIAH MOORE MD Consulting Unavailable LAST, NAVA DIAZ Attending Unavailab le PROVIDER, UNKNOWN Consulting Unavailable NAVA NI MD Admitting Unavailab le NAVA NI MD Primary Care Unavailab le JEREMIAH MOORE MD Consulting Unavailable NAVA NI MD Attending Unavailab le PROVIDER, UNKNOWN Consulting Unavailable NAVA NI MD Primary Care Unavailab le NAVA NI MD Admitting Unavailab JEREMIAH Mckeon MD Consulting Unavailable LAST, NAVA DIAZ Attending Unavailab le PROVIDER, UNKNOWN Consulting Unavailable LAST, NAVA DIAZ Attending Unavailab le LASTNAVA ARIZMENDI MD Admitting Unavailab le NAVA NI MD Primary Care Unavailab JEREMIAH Mckeon MD Consulting Unavailable PROVIDER, UNKNOWN Consulting Unavailable LAST, NAVA DIAZ Primary Care Unavailab le LAST, NAVA DIAZ Attending Unavailab le LASTNAVA ARIZMENDI MD Admitting Unavailab le JEREMIAH MOORE MD Consulting Unavailable PROVIDER, UNKNOWN Consulting Unavailable LAST, NAVA DIAZ Primary Care Unavailab le LAST, NAVA DIAZ Attending Unavailab le LAST, NAVA DIAZ Admitting Unavailab le JEREMIAH MOORE MD Consulting Unavailable PROVIDER, UNKNOWN Consulting Unavailable LAST, NAVA DIAZ Primary Care Unavailab le LAST, NAVA DIAZ Attending Unavailab le LAST, NAVA DIAZ Admitting Unavailab le JEREMIAH MOORE MD Consulting Unavailable PROVIDER, UNKNOWN Consulting Unavailable LAST, NAVA DIAZ Primary Care Unavailab le LASTNAVA ARIZMENDI MD Attending Unavailab le LASTNAVA ARIZMENDI MD Admitting Unavailab le JEREMIAH MOORE MD Consulting Unavailable PROVIDER, UNKNOWN Consulting Unavailable LAST, NAVA DIAZ Primary Care Unavailab le LASTNAVA ARIZMENDI MD Attending Unavailab NAVA Cantu MD Admitting Unavailab le JEREMIAH MOORE MD Consulting Unavailable PROVIDER, UNKNOWN Consulting Unavailable NAVA NI MD Primary Care Unavailab le LASTNAVA ARIZMENDI MD Attending Unavailab le LASTNAVA ARIZMENDI MD Admitting Unavailab le JEREMIAH MOORE MD Consulting Unavailable PROVIDER, UNKNOWN Consulting Unavailable NAVA NI MD Primary Care Unavailab le NAVA NI MD Admitting Unavailab le LASTNAVA ARIZMENDI MD Attending Unavailab JEREMIAH Mckeon MD Consulting Unavailable PROVIDER, UNKNOWN Consulting Unavailable NAVA NI MD Primary Care Unavailab NAVA Cantu MD Admitting Unavailab le LASTNAVA ARIZMENDI MD Attending Unavailab le JEREMIAH MOORE MD Consulting Unavailable PROVIDER, UNKNOWN Consulting Unavailable NAVA NI MD Primary Care Unavailab le LAST, NAVA DIAZ Attending Unavailab le LASTNAVA ARIZMENDI MD Admitting Unavailab JEREMIAH Mckeon MD Consulting Unavailable PROVIDER, UNKNOWN Consulting Unavailable LAST, NAVA DIAZ Primary Care Unavailab le LAST, NAVA DIAZ Attending Unavailab le LAST, NAVA DIAZ Admitting Unavailab JEREMIAH Mckeon MD Consulting Unavailable PROVIDER, UNKNOWN Consulting Unavailable NAVA NI MD Primary Care Unavailab le LASTNAVA ARIZMENDI MD Admitting Unavailab le JEREMIAH MOORE MD Consulting Unavailable LAST, NAVA DIAZ Attending Unavailab le PROVIDER, UNKNOWN Consulting Unavailable LAST, NAVA DAIZ Primary Care Unavailab le LAST, NAVA DIAZ Attending Unavailab le NAVA NI MD Admitting Unavailab le JEREMIAH MOORE MD Consulting Unavailable PROVIDER, UNKNOWN Consulting Unavailable LAST, NAVA DIAZ Primary Care Unavailab le LASTNAVA ARIZMENDI MD Admitting Unavailab le LAST, NAVA DIAZ Attending Unavailab le JEREMIAH MOORE MD Consulting Unavailable PROVIDER, UNKNOWN Consulting Unavailable LAST, NAVA DIAZ Primary Care Unavailab le LASTNAVA ARIZMENDI MD Admitting Unavailab le LAST, NAVA DIAZ Attending Unavailab le JEREMIAH MOORE MD Consulting Unavailable PROVIDER, UNKNOWN Consulting Unavailable NAVA NI MD Primary Care Unavailab le NAVA NI MD Admitting Unavailab JEREMIAH Mckeon MD Consulting Unavailable LAST, NAVA DIAZ Attending Unavailab le PROVIDER, UNKNOWN Consulting Unavailable LASTNAVA ARIZMENDI MD Primary Care Unavailab le NAVA NI MD Admitting Unavailab le LAST, NAVA DIAZ Attending Unavailab JEREMIAH Mckeon MD Consulting Unavailable PROVIDER, UNKNOWN Consulting Unavailable NAVA NI MD Primary Care Unavailab NAVA Cantu MD Attending Unavailab le NAVA NI MD Admitting Unavailab le JEREMIAH MOORE MD Consulting Unavailable PROVIDER, UNKNOWN Consulting Unavailable NAVA NI MD Primary Care UnavailNAVA Leger MD Attending UnavailNAVA Leger MD Admitting UnavailJEREMIAH Thomas MD Consulting Unavailable PROVIDER, UNKNOWN Consulting Unavailable FRIENDUSHA Attending Unavailable FRIENDUSHA Admitting Unavailable JEREMIAH MOORE MD Consulting Unavailable FRIEND, USHA Primary Care Unavailable PROVIDER, UNKNOWN Consulting Unavailable OLEGARIO BRITTANEY Referring Unavailable TIMI MORGAN Attending Unava ilable OLEGHE, EFEWONGBE B Primary Care Unavailable GLENNIE, BRITTANEY Referring Unavailable OLEGHE, EFEWONGBE B Primary Care Unavailable GLENNIE, BRITTANEY Referring Unavailable OLEGHE, EFEWONGBE B Primary Care Unavailable MARIANIE BRITTANEY Attending Unavailable GLENNIE, BRITTANEY Referring Unavailable OLEGHE, EFEWONGBE B Primary Care Unavailable OLEGHE, EFEWONGBE B Primary Care Unavailable CHANDNA, OLMAN Referring Unavailable OLEGHE, EFEWONGBE B Primary Care Unavailable TIMI MORGAN Attending Unava ilable CHANDNA, OLMAN Referring Unavailable OLEGHE, EFEWONGBE B Primary Care Unavailable CHANDNA, OLMAN Referring Unavailable OLEGHE, EFEWONGBE B Primary Care Unavailable CHANDNA, OLMAN Referring Unavailable OLEGHE, EFEWONGBE B Primary Care Unavailable Allergies Allergy Classification Reported Allergen(s) Allergy Type Date of Onset Reaction(s) Facility (20 sources) Dust; Translations: [DUST] Allergy to substance 0 Other: See Comments [facility] Work Phone: (20 sources) Mold Extract; Translations: [MOLD] Drug Allergy 0 Other: See Comments [facility] Work Phone: Medications Current Medications Medication Drug Class(es) Dates Sig (Normalized) Sig (Original) allopurinol 100 mg oral tablet (20 sources) Xanthine Oxidase Inhibitor take 1 tablet by mouth once daily allopurinol (ZYLOPRIM) 100 mg tablet Take 100 mg by mouth once daily. Active Comment on above: Take 100 mg by mouth once daily. amLODIPine 10 mg oral tablet (20 sources) Dihydropyridine Calcium Channel Greg Start: 07-24-2022 amLODIPine (NORVASC) 10 mg tablet 07/24/2022 Active ascorbic acid 500 mg oral tablet (20 sources) Vitamin C take 1 tablet by mouth once daily ascorbic acid, vitamin C, (VITAMIN C) 500 mg tablet Take 500 mg by mouth once daily. Active Comment on above: Take 500 mg by mouth once daily. aspirin 81 mg oral tablet (20 sources) Platelet Aggregation Inhibitor, Nonsteroidal Anti-inflammatory Drug Start: 03-29-2006 ASPIRIN 81 MG TAB Take one(1) tablet daily. 30 0 03/29/2006 Active Comment on above: Take one(1) tablet d aily. atorvastatin 80 mg oral tablet (20 sources) HMG-CoA Reductase Inhibitor Start: 12-08-2018 take 1 tablet by mouth once daily atorvastatin (LIPITOR) 80 mg tablet Take 1 tablet by mouth once daily. 90 tablet 3 12/08/2018 Active Comment on above: Take 1 tablet by mckenzie th once daily. bumetanide 2 mg oral tablet (20 sources) Loop Diuretic bumetanide (BUMEX) 1 mg tablet Take 1 tablet by mouth twice daily Once a day Active take 1 mg by mouth once daily bu metanide (BUMEX) 2 mg tablet Take 1 mg by mouth once daily. Active Comment on above: Take 1 mg by mouth o nce daily. Take 1 tablet by mckenzie th twice daily Once a day carvedilol 6.25 mg oral tablet (20 sources) alpha-Adrenergic Greg, beta-Adrenergic Greg Start: 10-09-2023 take 1 tablet by mouth twice daily carvedilol (COREG) 6.25 mg tablet Take 6.25 mg by mouth two times a day. for blood pressure 10/09/2023 Active take 1 tablet by mckenzie th twice daily at mealtime carvedilol (COREG) 25 mg tablet Take 25 mg by mouth twice daily with meals. Active Comment on above: Take 25 mg by mouth twice daily with meals. cetirizine hydrochloride 10 mg chewable tablet (20 sources) Histamine-1 Receptor Antagonist take 1 tablet by mouth once daily cetirizine HCl (ZYRTEC) 10 mg chewable tablet Take 10 mg by mouth once daily. Active Comment on above: Take 10 mg by mouth once daily. doxazosin 4 mg oral tablet (20 sources) alpha-Adrenergic Greg Start: 3 take 1 tablet by mouth once daily at bedtime doxazosin (CARDURA) 4 mg tablet Take 4 mg by mouth daily at bedtime. 08/14/2022 Active take 1 tablet by mckenzie th once daily at bedtime doxazosin (CARDURA) 2 mg tablet Take 2 m g by mouth daily at bedtime. Active take 1 tablet by mckenzie th once daily at bedtime doxazosin (CARDURA) 8 mg tablet Take 8 m g by mouth daily at bedtime. Active Comment on above: Take 8 mg by mouth d aily at bedtime. Take 2 mg by mouth d aily at bedtime. Take 4 mg by mouth d aily at bedtime. ezetimibe 10 mg oral tablet (20 sources) Dietary Cholesterol Absorption Inhibitor Start: take 1 tablet by mouth once daily ezetimibe (ZETIA) 10 mg tablet Indications: Atherosclerosis of cachil dehe artery of extremity, unspecified extremity, with unspecified presence of clinical manifestation (HCC) , Hypercholesterolemia Take 1 tablet by mouth once daily. 90 tablet 3 06/02/2019 Active Comment on above: Take 1 tablet by mckenzie th once daily. ferrous sulfate 325 mg oral tablet (20 sources) Start: take 1 tablet by mouth twice daily at mealtime ferrous sulfate 325 mg (65 mg iron) tablet Indications: Iron deficiency anemia, unspecified iron deficiency anemia type Take 1 tablet by mouth twice daily with meals. 60 tablet 5 05/26/2019 Active Comment on above: Take 1 tablet by mckenzie th twice daily with meals. hydrALAZINE hydrochloride 100 mg oral tablet (20 sources) Arteriolar Vasodilator Start: take 1 tablet by mouth three times daily hydrALAZINE (APRESOLINE) 100 mg tablet Take 100 mg by mouth three times daily. 09/03/2019 Active Comment on above: Take 100 mg by mouth three times daily. 24 hr isosorbide mononitrate 60 mg extended release oral tablet (4 sources) Nitrate Vasodilator Start: 024 take 1 tablet by mouth once daily isosorbide mononitrate ER (IMDUR) 60 mg 24 hr tablet Take 1 tablet by mouth once daily. 08/01/2023 Active lisinopril 40 mg oral tablet (20 sources) Angiotensin Converting Enzyme Inhibitor Start: 023 take 1 tablet by mouth once daily lisinopril (ZESTRIL) 40 mg tablet Take 40 mg by mouth once daily. 07/03/2022 Active take 1 tablet by mouth once shauna y lisinopril (ZESTRIL) 10 mg tablet Take 10 mg by mouth once daily. Active Comment on above: Take 40 mg by mouth once daily. MULTIVITAMIN ORAL TAB (20 sources) Start: 005 take 1 tablet by mouth once daily MULTIVITAMIN ORAL TAB Take one(1) tablet daily. 0 09/27/2004 Active Comment on above: Take one(1) tablet d aily. nitroglycerin 0.4 mg sublingual tablet (20 sources) Nitrate Vasodilator Start: 020 nitroglycerin sublingual (NITROQUICK) 0.4 mg SL tablet Dissolve 1 tablet under the tongue every 5 minutes as needed. FOR CHEST PAIN. IF NO RELIEF CALL 911 1 Bottle of 25 5 04/27/2019 Active Comment on above: Dissolve 1 tablet un pete the tongue every 5 minutes as needed. FOR CHEST PAIN. IF NO RELIEF CALL 911 pantoprazole 40 mg injection (10 sources) Proton Pump Inhibitor inject 40 mg intravenously once daily in the morning pantoprazole (PROTONIX) 40 mg injection Inject 40 mg intravenously daily at 6 am. Active Comment on above: Inject 40 mg intrave nously daily at 6 am. perflutren lipid microspheres 1.3 mL in NaCl (PF) 0.9% 10 mL injection (DEFINITY) (20 sources) Start: 023 End: perflutren lipid microspheres 1.3 mL in NaCl (PF) 0.9% 10 mL injection (DEFINITY) pirfenidone 801 mg oral tablet (20 sources) Pyridone Start: 023 End: 024 take 1 tablet by mouth three times daily at mealtime pirfenidone (ESBRIET) 801 mg tablet Indications: IPF (idiopathic pulmonary fibrosis) (HCC) Take 1 tablet by mouth three times a day with meals. 90 tablet 11 12/17/2022 Active Start: 11-01-2022 End: 11-01-2023 take 3 capsules by mouth three times daily pirfenidone (ESBRIET) 267 mg capsule Indications: IPF (idiopathic pulmonary fibrosis) (HCC) Take 3 capsules by mouth three times daily. 270 capsule 11 11/01/2022 12/17/2022 Discontinued Start: 10-31-2022 End: 12-17-2022 take 1 capsule by mouth three times daily, then take 2 capsules by mouth three times daily, then take 3 capsules by mouth three times daily pirfenidone (ESBRIET) 267 mg capsule Indications: IPF (idiopathic pulmonary fibrosis) (HCC) Take 1 capsule by mouth three times daily for 7 days, THEN 2 capsules three times daily for 7 days, THEN 3 capsules three times daily. 333 capsule 0 10/31/2022 12/17/2022 Discontinued Comment on above: Take 1 capsule by mo uth three times daily for 7 days, THEN 2 capsules three times daily for 7 days, THEN 3 capsules three times daily. Take 3 capsules by m outh three times daily. Take 1 tablet by mckenzie th three times a day with meals. microencapsulated potassium chloride 20 meq extended release oral tablet (20 sources) potassium chlori de ER (K-DUR, KLOR-CON) 20 mEq tablet Take 20 mEq by mouth twice daily. Active Comment on above: Take 20 mEq by mouth twice daily. sertraline 50 mg oral tablet (20 sources) Serotonin Reuptake Inhibitor Start: 07-22-2022 sertraline (ZOLOFT) 50 mg tablet 07/22/2022 Active 125 ml sodium chloride 9 mg/ml prefilled syringe (20 sources) Start: 07-25-2022 End: 10-24-2023 sodium chloride 0.9 % (flush) 10 mL (BD POSIFLUSH) Completed/Discontinued Medications Medication Drug Class(es) Dates Sig (Normalized) Sig (Original) iv contrast (will be provided with radiology test) (20 sources) Start: 11-03-2019 inject 1 dose intravenously once iv contrast (will be provided with radiology test) CT Cardiac - No IV access, insert saline lock prior to the sedation, infusion, injection for imaging exam. Discontinue saline lock post exam. If Pt. has a central line or IVAD, may access for administration according to line specific nursing protocol. Once exam is complete flush line and de-access according to line specific nursing protocol in the CT contrast administration guidelines link. 1 Each 11/03/2019 Active Start: 11-03-2019 inject 1 dose intravenously on ce iv contrast (will be provided with radiology test) CT Cardiac - No IV access, insert saline lock prior to the sedation, infusion, injection for imaging exam. Discontinue saline lock post exam. If Pt. has a central line or IVAD, may access for administration according to line specific nursing protocol. Once exam is complete flush line and de-access according to line specific nursing protocol in the CT contrast administration guidelines link. 1 Each 0 11/03/2019 Active Comment on above: CT Cardiac - No IV a ccess, insert saline lock prior to the sedation, infusion, injection for imaging exam. Discontinue saline lock post exam. If Pt. has a central line or IVAD, may access for administration according to line specific nursing protocol. Once exam is complete flush line and de-access according to line specific nursing protocol in the CT contrast administration guidelines link. Problems Active Problems Problem Classification Problem Date Documented Date Episodic/Chronic Acute cerebrovascular disease (20 sources) Cerebral infarction; Translations: [Cerebral infarction due to unspecified occlusion or stenosis of unspecified carotid artery] Onset: 05-17-2004 10-13-2018 Chronic Cardiac dysrhythmias (20 sources) Paroxysmal atrial fibrillation; Translations: [Paroxysmal atrial fibrillation] Onset: 10-28-2012 Resolved: 08-12-2019 02-27-2021 Chronic Chronic kidney disease (20 sources) Chronic kidney disease stage 3; Translations: [CKD (chronic kidney disease) stage 3, GFR 30-59 ml/min] Onset: 03-29-2006 Resolved: 11-13-2007 09-30-2019 Chronic Chronic kidney disease (4 sources) Chronic kidney disease; Translations: [Chronic kidney disease, stage 3b] Onset: 04-12-2023 Coronary atherosclerosis and other heart disease (20 sources) 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; Translations: [Coronary atherosclerosis] Onset: 09-12-2012 09-12-2012 Chronic Deficiency and other anemia (1 source) Anemia in chronic kidney disease; Translations: [Anemia in chronic kidney disease] Onset: 10-07-2023 Chronic Disorders of lipid metabolism (20 sources) Hypercholesterolemia; Translations: [Pure hypercholesterolemia, unspecified] 12-28-2014 Chronic Essential hypertension (20 sources) Essential (primary) hypertension; Translations: [Essential hypertension] Onset: 07-20-2009 Resolved: 10-13-2015 05-25-2019 Chronic Hyperplasia of prostate (1 source) Benign prostatic hyperplasia without lower urinary tract symptoms; Translations: [Benign prostatic hyperplasia without lower urinary tract symptoms] Onset: 04-19-2023 Chronic Other aftercare (3 sources) Taking high risk medication; Translations: [Other product management internship (current) drug therapy] 10-31-2022 Episodic Other circulatory disease (20 sources) History of peripheral vascular angioplasty; Translations: [Peripheral vascular angioplasty status with implants and grafts] Onset: 11-04-2019 11-04-2019 Chronic Other lower respiratory disease (7 sources) Interstitial lung disease; Translations: [Interstitial pulmonary disease, unspecified] Chronic Other lower respiratory disease (20 sources) Idiopathic pulmonary fibrosis; Translations: [Idiopathic pulmonary fibrosis] Onset: 07-25-2022 07-25-2022 Chronic Other lower respiratory disease (1 source) Interstitial pulmonary disease, unspecified; Translations: [Interstitial pulmonary disease (HCC)] Onset: 10-16-2023 Chronic Other lower respiratory disease (1 source) Idiopathic pulmonary fibrosis; Translations: [IPF (idiopathic pulmonary fibrosis) (HCC)] Onset: 07-25-2022 Chronic Other lower respiratory disease (2 sources) Dyspnea; Translations: [Shortness of breath] 09-11-2022 Episodic Other male genital disorders (20 sources) Male erectile dysfunction, unspecified; Translations: [Impotence of organic origin] Onset: 07-20-2009 07-20-2009 Chronic Peripheral and visceral atherosclerosis (20 sources) Arteriosclerosis of renal artery; Translations: [Atherosclerosis of renal artery] Onset: 12-08-2004 Resolved: 11-21-2020 11-21-2020 Chronic Pulmonary heart disease (20 sources) Pulmonary hypertension; Translations: [Pulmonary hypertension, unspecified] Onset: 08-12-2019 08-12-2019 Chronic Respiratory failure; insufficiency; arrest (adult) (20 sources) Dependence on supplemental oxygen; Translations: [Dependence on supplemental oxygen] Onset: 09-30-2019 09-30-2019 Chronic Unclassified (1 source) Unknown / UNK(Unknown) Onset: 09-12-2012 Past or Other Problems Problem Classification Problem Date Documented Da te Episodic/Chronic Abdominal hernia (20 sources) Inguinal hernia; Translations: [Unilateral inguinal hernia, without obstruction or gangrene, not specified as recurrent] Onset: 10-17-2010 Resolved: 08-12-2019 10-17-2010 Episodic Abdominal pain (8 sources) Inguinal pain; Translations: [Lower abdominal pain, unspecified] Onset: 10-04-2012 Resolved: 10-13-2015 10-13-2015 Episodic Congestive heart failure; nonhypertensive (9 sources) Chronic diastolic (congestive) heart failure; Translations: [Acute diastolic heart failure] Onset: 07-11-2017 Resolved: 11-21-2020 11-21-2020 Chronic Deficiency and other anemia (20 sources) Anemia; Translations: [Anemia, unspecified] Onset: 07-30-2017 07-30-2017 Episodic Diabetes mellitus without complication (20 sources) Impaired fasting glycemia; Translations: [Impaired fasting glucose] Onset: 04-23-2007 04-23-2007 Episodic Fluid and electrolyte disorders (1 source) Hyperkalemia; Translations: [Hyperkalemia] Onset: 01-14-2017 Episodic Occlusion or stenosis of precerebral arteries (8 sources) Carotid artery occlusion; Translations: [Occlusion and stenosis of unspecified carotid artery] Resolved: 09-18-2005 09-12-2023 Chronic Other aftercare (3 sources) Encounter for adjustment and management of vascular access device; Translations: [Encounter for adjustment and management of vascular access device] Onset: 04-12-2023 Episodic Other and ill-defined cerebrovascular disease (8 sources) Cerebrovascular disease; Translations: [Other cerebrovascular disease] Resolved: 06-28-2006 09-12-2023 Chronic Other circulatory disease (8 sources) H/O: cardiovascular disease; Translations: [Personal history of other diseases of the circulatory system] Onset: 04-04-2005 Resolved: 10-13-2015 10-13-2015 Episodic Other gastrointestinal disorders (8 sources) Diarrhea; Translations: [Diarrhea, unspecified] Onset: 07-20-2009 Resolved: 10-13-2015 10-13-2015 Episodic Other gastrointestinal disorders (8 sources) Occult blood in stools; Translations: [Other fecal abnormalities] Onset: 07-30-2017 Resolved: 08-12-2019 08-12-2019 Episodic Other non-epithelial cancer of skin (20 sources) Basal cell carcinoma of upper extremity; Translations: [Basal cell carcinoma of skin of left upper limb, including shoulder] Onset: 03-03-2018 03-03-2018 Episodic Other screening for suspected conditions (not mental disorders or infectious disease) (20 sources) Patient encounter status; Translations: [Encounter for screening for malignant neoplasm of colon] Onset: 07-30-2017 07-30-2017 Episodic Residual codes; unclassified (20 sources) Past history of procedure; Translations: [Other specified postprocedural states] Onset: 11-04-2019 11-04-2019 Episodic Results Test Name Value Interpretation Reference Range Facility [facility] 12-23-2023 [facility] Telephone (RIQ) MESHAEKTA Chiang ([id number]) 1945 M Date Time Provider Department 12/23/23 YOCASTA RODRÍGUEZ TNSunita During your visit today, we recorded the following information about you: Yocasta Bradley 12/23/2023 12:47 PM Signed Received fax RX request form from [facility] dated 12/12/2023; medication Pirfenidone; form complete, signed and fax back to [facility] on 12/18/2023. Allergies As of Date: 12/23/2023 Noted Allergy Reaction DUST 04/17/2019 14 - Other: See Comments MOLD 04/17/2019 14 - Other: See Comments Date Reviewed: 10/16/2023 Reviewed by: Timi Morgan MD - Fully Assessed Reason for Visit: Medication Authorization [1699] Prescriptions as of 12/23/2023 - isosorbide mononitrate ER (IMDUR) 60 mg 24 hr tablet Take 1 tablet by mouth once daily. - carvedilol (COREG) 6.25 mg tablet Take 6.25 mg by mouth two times a day. for blood pressure - lisinopril (ZESTRIL) 10 mg tablet Take 10 mg by mouth once daily. - pantoprazole (PROTONIX) 40 mg injection Inject 40 mg intravenously daily at 6 am. - pirfenidone (ESBRIET) 801 mg tablet Take 1 tablet by mouth three times a day with meals. - bumetanide (BUMEX) 1 mg tablet Take 1 tablet by mouth twice daily Once a day - doxazosin (CARDURA) 4 mg tablet Take 4 mg by mouth daily at bedtime. - lisinopril (ZESTRIL) 40 mg tablet Take 40 mg by mouth once daily. - sertraline (ZOLOFT) 50 mg tablet - doxazosin (CARDURA) 2 mg tablet Take 2 mg by mouth daily at bedtime. - amLODIPine (NORVASC) 10 mg tablet - ascorbic acid, vitamin C, (VITAMIN C) 500 mg tablet Take 500 mg by mouth once daily. - allopurinol (ZYLOPRIM) 100 mg tablet Take 100 mg by mouth once daily. - cetirizine HCl (ZYRTEC) 10 mg chewable tablet Take 10 mg by mouth once daily. - potassium chloride ER (K-DUR, KLOR-CON) 20 mEq tablet Take 20 mEq by mouth twice daily. - doxazosin (CARDURA) 8 mg tablet Take 8 mg by mouth daily at bedtime. - iv contrast (will be provided with radiology test) CT Cardiac - No IV access, insert saline lock prior to the sedation, infusion, injection for imaging exam. Discontinue saline lock post exam. If Pt. has a central line or IVAD, may access for administration according to line specific nursing protocol. Once exam is complete flush line and de-access according to line specific nursing protocol in the CT contrast administration guidelines link. - bumetanide (BUMEX) 2 mg tablet Take 1 mg by mouth once daily. - hydrALAZINE (APRESOLINE) 100 mg tablet Take 100 mg by mouth three times daily. - ezetimibe (ZETIA) 10 mg tablet Take 1 tablet by mouth once daily. - ferrous sulfate 325 mg (65 mg iron) tablet Take 1 tablet by mouth twice daily with meals. - nitroglycerin sublingual (NITROQUICK) 0.4 mg SL tablet Dissolve 1 tablet under the tongue every 5 minutes as needed. FOR CHEST PAIN. IF NO RELIEF CALL 911 - carvedilol (COREG) 25 mg tablet Take 25 mg by mouth twice daily with meals. - atorvastatin (LIPITOR) 80 mg tablet Take 1 tablet by mouth once daily. - ASPIRIN 81 MG TAB Take one(1) tablet daily. - MULTIVITAMIN ORAL TAB Take one(1) tablet daily. Problem List As Of Date 12/23/2023 Noted Resolved Occlusion and stenosis of carotid artery with c*05/17/2004 Essential Hypertension, Benign [I10] 07/20/2009 CVA [I67.89] 06/28/2006 CAROTID ART OCCL-NO INFARCT [I65.29] 09/18/2005 Hypercholesterolemia [E78.00] Atherosclerosis of renal artery (HCC) [I70.1] 11/21/2020 Atherosclerosis of cachil dehe artery of extremity (*12/08/2004 08/12/2019 Personal history of unspecified circulatory dis*04/04/2005 10/13/2015 CHRONIC KIDNEY DISEASE, STAGE I [N18.1] 03/29/2006 11/13/2007 IMPAIRED FASTING GLUCOSE [R73.01] 04/23/2007 CKD (chronic kidney disease) stage 3, GFR 30-59*11/13/2007 HBP (high blood pressure) [I10] 07/20/2009 10/13/2015 Diarrhea [R19.7] 07/20/2009 10/13/2015 Ed (Erectile Dysfunction) [N52.9] 07/20/2009 Inguinal hernia [K40.90] 10/17/2010 Inguinal hernia without mention of obstruction *10/30/2010 08/12/2019 Peripheral vascular disease (HCC) [I73.9] 11/21/2020 CAD (coronary atherosclerotic disease) [I25.10] Paroxysmal atrial fibrillation (HCC) [I48.0] Inguinal pain [R10.30] 10/04/2012 10/13/2015 SVT (supraventricular tachycardia) (HCC) [I47.1*10/28/2012 08/12/2019 Essential hypertension with goal blood pressure*06/14/2015 Atherosclerosis of cachil dehe coronary artery of na*06/14/2015 Acute diastolic CHF (congestive heart failure) *07/11/2017 11/21/2020 Occult blood positive stool [R19.5] 07/30/2017 08/12/2019 Encounter for screening for malignant neoplasm *07/30/2017 Absolute anemia [D64.9] 07/30/2017 Basal cell carcinoma (BCC) of skin of left uppe*03/03/2018 Pulmonary HTN (HCC) [I27.20] 08/12/2019 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 Normal [facility] 11-21-2023 MAKAYLA Telephone (RIQ) EKTA ZIMMER ([id number]) 1945 M Date Time Provider Department 11/21/23 YOCASTA RODRÍGUEZ (PSS) During your visit today, we recorded the following information about you: Yocasta Bradley 11/21/2023 9:42 AM Signed Received call today 11/21/2023 from [facility]; sleep technician [facility] requesting new RX for Pirfenidone 801 MG; patient prior medication delivery was tampered with; verbal RX order given. DX - J84.112 IPF Allergies As of Date: 11/21/2023 Noted Allergy Reaction DUST 04/17/2019 14 - Other: See Comments MOLD 04/17/2019 14 - Other: See Comments Date Reviewed: 10/16/2023 Reviewed by: Timi Morgan MD - Fully Assessed Reason for Visit: Medication Authorization [1699] Prescriptions as of 11/21/2023 - isosorbide mononitrate ER (IMDUR) 60 mg 24 hr tablet Take 1 tablet by mouth once daily. - carvedilol (COREG) 6.25 mg tablet Take 6.25 mg by mouth two times a day. for blood pressure - lisinopril (ZESTRIL) 10 mg tablet Take 10 mg by mouth once daily. - pantoprazole (PROTONIX) 40 mg injection Inject 40 mg intravenously daily at 6 am. - pirfenidone (ESBRIET) 801 mg tablet Take 1 tablet by mouth three times a day with meals. - bumetanide (BUMEX) 1 mg tablet Take 1 tablet by mouth twice daily Once a day - doxazosin (CARDURA) 4 mg tablet Take 4 mg by mouth daily at bedtime. - lisinopril (ZESTRIL) 40 mg tablet Take 40 mg by mouth once daily. - sertraline (ZOLOFT) 50 mg tablet - doxazosin (CARDURA) 2 mg tablet Take 2 mg by mouth daily at bedtime. - amLODIPine (NORVASC) 10 mg tablet - ascorbic acid, vitamin C, (VITAMIN C) 500 mg tablet Take 500 mg by mouth once daily. - allopurinol (ZYLOPRIM) 100 mg tablet Take 100 mg by mouth once daily. - cetirizine HCl (ZYRTEC) 10 mg chewable tablet Take 10 mg by mouth once daily. - potassium chloride ER (K-DUR, KLOR-CON) 20 mEq tablet Take 20 mEq by mouth twice daily. - doxazosin (CARDURA) 8 mg tablet Take 8 mg by mouth daily at bedtime. - iv contrast (will be provided with radiology test) CT Cardiac - No IV access, insert saline lock prior to the sedation, infusion, injection for imaging exam. Discontinue saline lock post exam. If Pt. has a central line or IVAD, may access for administration according to line specific nursing protocol. Once exam is complete flush line and de-access according to line specific nursing protocol in the CT contrast administration guidelines link. - bumetanide (BUMEX) 2 mg tablet Take 1 mg by mouth once daily. - hydrALAZINE (APRESOLINE) 100 mg tablet Take 100 mg by mouth three times daily. - ezetimibe (ZETIA) 10 mg tablet Take 1 tablet by mouth once daily. - ferrous sulfate 325 mg (65 mg iron) tablet Take 1 tablet by mouth twice daily with meals. - nitroglycerin sublingual (NITROQUICK) 0.4 mg SL tablet Dissolve 1 tablet under the tongue every 5 minutes as needed. FOR CHEST PAIN. IF NO RELIEF CALL 911 - carvedilol (COREG) 25 mg tablet Take 25 mg by mouth twice daily with meals. - atorvastatin (LIPITOR) 80 mg tablet Take 1 tablet by mouth once daily. - ASPIRIN 81 MG TAB Take one(1) tablet daily. - MULTIVITAMIN ORAL TAB Take one(1) tablet daily. Problem List As Of Date 11/21/2023 Noted Resolved Occlusion and stenosis of carotid artery with c*05/17/2004 Essential Hypertension, Benign [I10] 07/20/2009 CVA [I67.89] 06/28/2006 CAROTID ART OCCL-NO INFARCT [I65.29] 09/18/2005 Hypercholesterolemia [E78.00] Atherosclerosis of renal artery (HCC) [I70.1] 11/21/2020 Atherosclerosis of cachil dehe artery of extremity (*12/08/2004 08/12/2019 Personal history of unspecified circulatory dis*04/04/2005 10/13/2015 CHRONIC KIDNEY DISEASE, STAGE I [N18.1] 03/29/2006 11/13/2007 IMPAIRED FASTING GLUCOSE [R73.01] 04/23/2007 CKD (chronic kidney disease) stage 3, GFR 30-59*11/13/2007 HBP (high blood pressure) [I10] 07/20/2009 10/13/2015 Diarrhea [R19.7] 07/20/2009 10/13/2015 Ed (Erectile Dysfunction) [N52.9] 07/20/2009 Inguinal hernia [K40.90] 10/17/2010 Inguinal hernia without mention of obstruction *10/30/2010 08/12/2019 Peripheral vascular disease (HCC) [I73.9] 11/21/2020 CAD (coronary atherosclerotic disease) [I25.10] Paroxysmal atrial fibrillation (HCC) [I48.0] Inguinal pain [R10.30] 10/04/2012 10/13/2015 SVT (supraventricular tachycardia) (HCC) [I47.1*10/28/2012 08/12/2019 Essential hypertension with goal blood pressure*06/14/2015 Atherosclerosis of cachil dehe coronary artery of na*06/14/2015 Acute diastolic CHF (congestive heart failure) *07/11/2017 11/21/2020 Occult blood positive stool [R19.5] 07/30/2017 08/12/2019 Encounter for screening for malignant neoplasm *07/30/2017 Absolute anemia [D64.9] 07/30/2017 Basal cell carcinoma (BCC) of skin of left uppe*03/03/2018 Pulmonary HTN (HCC) [I27.20] 08/12/2019 Superior mesenteric artery stenosis (HCC (more content not included)... Normal [facility] HEMOGLOBINon 11-05-2023 Hemoglobin (Bld) [Mass/Vol] 14.5 g/dL Normal 13.0 - 17.5 [facility] Comment on above: Performed By: #### 2 [id number] #### [facility],[address] [place], [place] [id number] HEMOGLOBINon 10-29-2023 Hemoglobin (Bld) [Mass/Vol] 14.8 g/dL Normal 13.0 - 17.5 [facility] Comment on above: Performed By: #### 2 [id number] #### [facility],[address] [place], [place] [id number] HEMOGLOBINon 10-21-2023 Hemoglobin (Bld) [Mass/Vol] 13.9 g/dL Normal 13.0 - 17.5 [facility] Comment on above: Performed By: #### 2 [id number] #### [facility],[address] [place], [place] [id number] CNPNon 10-17-2023 CNPN Telephone (RIQ) EKTA ZIMMER ([id number]) 1945 M Date Time Provider Department 10/17/23 YOCASTA RODRÍGUEZ) RIQ During your visit today, we recorded the following information about you: Yocasta Bradley 10/17/2023 12:11 PM Signed Received fax PA request from [employer]; medication Pirfenidone; PA done today 10/17/2023 thru [employer]; Marshall: BRREUDUG; outcome status; ;Status:Approved;Revie w Type:Prior Auth;Coverage Start Date:09/10/2023;Coverage End Date:10/09/2024; DX - J84.112 IPF Started Pirfenidone 11/2022 Allergies As of Date: 10/17/2023 Noted Allergy Reaction DUST 04/17/2019 14 - Other: See Comments MOLD 04/17/2019 14 - Other: See Comments Date Reviewed: 10/16/2023 Reviewed by: Timi Morgan MD - Fully Assessed Reason for Visit: Medication Authorization [1699] Prescriptions as of 10/17/2023 - isosorbide mononitrate ER (IMDUR) 60 mg 24 hr tablet Take 1 tablet by mouth once daily. - carvedilol (COREG) 6.25 mg tablet Take 6.25 mg by mouth two times a day. for blood pressure - lisinopril (ZESTRIL) 10 mg tablet Take 10 mg by mouth once daily. - pantoprazole (PROTONIX) 40 mg injection Inject 40 mg intravenously daily at 6 am. - pirfenidone (ESBRIET) 801 mg tablet Take 1 tablet by mouth three times a day with meals. - bumetanide (BUMEX) 1 mg tablet Take 1 tablet by mouth twice daily Once a day - doxazosin (CARDURA) 4 mg tablet Take 4 mg by mouth daily at bedtime. - lisinopril (ZESTRIL) 40 mg tablet Take 40 mg by mouth once daily. - sertraline (ZOLOFT) 50 mg tablet - doxazosin (CARDURA) 2 mg tablet Take 2 mg by mouth daily at bedtime. - amLODIPine (NORVASC) 10 mg tablet - ascorbic acid, vitamin C, (VITAMIN C) 500 mg tablet Take 500 mg by mouth once daily. - allopurinol (ZYLOPRIM) 100 mg tablet Take 100 mg by mouth once daily. - cetirizine HCl (ZYRTEC) 10 mg chewable tablet Take 10 mg by mouth once daily. - potassium chloride ER (K-DUR, KLOR-CON) 20 mEq tablet Take 20 mEq by mouth twice daily. - doxazosin (CARDURA) 8 mg tablet Take 8 mg by mouth daily at bedtime. - iv contrast (will be provided with radiology test) CT Cardiac - No IV access, insert saline lock prior to the sedation, infusion, injection for imaging exam. Discontinue saline lock post exam. If Pt. has a central line or IVAD, may access for administration according to line specific nursing protocol. Once exam is complete flush line and de-access according to line specific nursing protocol in the CT contrast administration guidelines link. - bumetanide (BUMEX) 2 mg tablet Take 1 mg by mouth once daily. - hydrALAZINE (APRESOLINE) 100 mg tablet Take 100 mg by mouth three times daily. - ezetimibe (ZETIA) 10 mg tablet Take 1 tablet by mouth once daily. - ferrous sulfate 325 mg (65 mg iron) tablet Take 1 tablet by mouth twice daily with meals. - nitroglycerin sublingual (NITROQUICK) 0.4 mg SL tablet Dissolve 1 tablet under the tongue every 5 minutes as needed. FOR CHEST PAIN. IF NO RELIEF CALL 911 - carvedilol (COREG) 25 mg tablet Take 25 mg by mouth twice daily with meals. - atorvastatin (LIPITOR) 80 mg tablet Take 1 tablet by mouth once daily. - ASPIRIN 81 MG TAB Take one(1) tablet daily. - MULTIVITAMIN ORAL TAB Take one(1) tablet daily. Facility-Administered Medications as of 10/17/2023 - perflutren lipid microspheres 1.3 mL in NaCl (PF) 0.9% 10 mL injection (DEFINITY) - sodium chloride 0.9 % (flush) 10 mL (BD POSIFLUSH) Problem List As Of Date 10/17/2023 Noted Resolved Occlusion and stenosis of carotid artery with c*05/17/2004 Essential Hypertension, Benign [I10] 07/20/2009 CVA [I67.89] 06/28/2006 CAROTID ART OCCL-NO INFARCT [I65.29] 09/18/2005 Hypercholesterolemia [E78.00] Atherosclerosis of renal artery (HCC) [I70.1] 11/21/2020 Atherosclerosis of cachil dehe artery of extremity (*12/08/2004 08/12/2019 Personal history of unspecified circulatory dis*04/04/2005 10/13/2015 CHRONIC KIDNEY DISEASE, STAGE I [N18.1] 03/29/2006 11/13/2007 IMPAIRED FASTING GLUCOSE [R73.01] 04/23/2007 CKD (chronic kidney disease) stage 3, GFR 30-59*11/13/2007 HBP (high blood pressure) [I10] 07/20/2009 10/13/2015 Diarrhea [R19.7] 07/20/2009 10/13/2015 Ed (Erectile Dysfunction) [N52.9] 07/20/2009 Inguinal hernia [K40.90] 10/17/2010 Inguinal hernia without mention of obstruction *10/30/2010 08/12/2019 Peripheral vascular disease (HCC) [I73.9] 11/21/2020 CAD (coronary atherosclerotic disease) [I25.10] Paroxysmal atrial fibrillation (HCC) [I48.0] Inguinal pain [R10.30] 10/04/2012 10/13/2015 SVT (supraventricular tachycardia) (HCC) [I47.1*10/28/2012 08/12/2019 Essential hypertension with goal blood pressure*06/14/2015 Atherosclerosis of cachil dehe coronary artery of na*06/14/2015 Acute diastolic CHF (congestive heart failure) *07/11/2017 11/21/2020 Occult blood posit (more content not included)... Normal [facility] CT Chest WO contraston 10-16 IMPRESSION: Limited due to respiratory motion on inspiratory and expiratory phase images especially in the lower lungs. 1. Compared to 05/12/2022 exam, there may be mild progression of interstitial fibrosis, difficult to confirm. Findings do appear progressive compared to 2019 exam, within limitations. 2. No suspicious lung nodules readily identifiable, within limitations. 3. Intrathoracic lymphadenopathy presumably related to ILD, with some of the lymph nodes measuring slightly larger. Status post CABG with multiple additional cardiovascular findings noted in the body of the report. Please note: For future exams, patient may benefit from additional prone images (scanning from bottom of lung to the top), and lung base scanning from upper lungs (in the light of patient's dyspnea). These parameters need to be requested specifically by the ordering provider. [employer] Assistant: PSCB Transcribe Date/Time: Oct 17 2023 11:44A Dictated by : BRITTANY HATHAWAY MD This examination was interpreted and the report reviewed and electronically signed by: BRITTANY HATHAWAY MD on Oct 17 2023 12:29PM [facility] DIVISION OF RADIOLOGY * * *Final Report* * * DATE OF EXAM: Oct 16 2023 11:08AM [facility] [place] [id number] - CT CHEST WO IVCON / PROCEDURE REASON: Interstitial pulmonary disease (HCC) * * * * Physician Interpretation * * * * EXAMINATION: CHEST CT WITHOUT CONTRAST CLINICAL HISTORY: 78-year-old male former cigarette and cigar smoker, quit in 1982; EtOH 6/w; with Diagnosis based on CT chest with probable?UIP and lack of other potential causes. He has had stable to mild progression from 2019 to 2022.?He started pirfenidone in November 2022.??He has evidence of grade II DD and RVSP elevated at 60mmHg with normal RV size and function. Technique: Spiral CT acquisition of the chest from the thoracic inlet to the upper abdomen without contrast. Full inspiratory and expiratory phase images of the lungs were obtained. MQ: [id number] CT Radiation dose: Integrated Dose-length product (DLP) for this visit = 330 mGy*cm CT Dose Reduction Employed: Automated exposure control (AEC) Comparison: 05/12/2022 RESULT: Limitations: Cardiorespiratory motion noted, limiting evaluation of inspiratory images in the lower lungs, and more so on expiratory phase images. Barrel Cooper (topogram) images: Hyperinflation, with flattened hemidiaphragms. No additional findings. Lines, tubes, and devices: None. Lung parenchyma: Bilateral lung bases are suboptimally evaluated on both sets of images. On lung windows, presumed retained secretions in the trachea and about the level of the carlos alberto. Minimal bronchial wall thickening suggestive of airways inflammation. On some of the expiratory phase images, near total luminal collapse of left lower lobe distal segmental or subsegmental bronchi may be present (images 210-224) and may represent a form of excessive dynamic airway collapse. Interstitial fibrotic changes, with localized areas of traction bronchiectasis noted, for example anterior right upper lobe image 130, and upper to midlung zone predominant subpleural reticulation changes, scattered with microcystic lucencies, minimally thickened interlobular septa, and peripheral intralobular interstitial thickening, with architectural distortion/mild volume loss (images 34, 67, 85, 97, 117, 123), with peripheral traction bronchiectasis/bronchiolectasis (images 129, 140, 237). Some areas may demonstrate paraseptal emphysematous lucencies (image 86). The lung bases demonstrate mildly more extensive interstitial fibrotic changes, although details are difficult to delineate due to motion. There are some areas of localized dense subpleural fibrosis suspected, for example right upper lobe image 137. I do not appreciate any enlarging nodules within limitations of the exam. There is suggestion of progression of disease compared to 05/12/2022 exam (see coronal MPR images 183 - 188 series 7 and compared to 166-195 series 602 on prior study and images 167-193 series 601 on 04/07/2019 exam), with progression more evident compared to 2019. Biapical subpleural scarring. Multiple high attenuation foci noted especially in the lung bases may relate to dendriform ossification, visible on prior exam. Pleural space: No pleural effusion. No pneumothorax. Lower neck, lymph nodes, and mediastinum: Visualized portions of the thyroid appear stable. No progressive axillary or supraclavicular lymphadenopathy meeting size criteria noted. Intrathoracically, intrathoracic lymphadenopathy, likely related to ILD, with subcarinal lymph node measuring up to 24 mm image 163, previously about 22 mm. Heart, pericardium, and thoracic vessels: CABG changes noted. Multivessel cachil dehe coronary artery calcifications. Atherosclerotic calcifications of the aorta and its branches noted including aortic root. Incidental left vertebral artery arising off the aortic arch, an anatomic variant. Ascending aorta measures 31 x 38 mm, probably within normal limits. Pulmonary trunk is 29 mm, borderline dilated. Left atrial dilation. Aortic valve leaflet calcifications noted, and may be associated with valvular stenosis. Left atrial dilation. Multichamber cardiomegaly suspected. No pericardial effusion. Focal mitral annular calcifications. Stable esophagus with some endoluminal gas, dilated distally. There may be tiny hiatal hernia. Bones and soft tissues: Mild bilateral gynecomastia, similar to 2022 exam but developed since 2019 exam. On bone window images, degenerative changes of the spine noted. Median sternotomy changes. Healed sternal segments. Upper abdomen: Atherosclerotic calcifications of the abdominal aorta and its branches, with celiac, SMA and bilateral renal artery stents in place. Otherwise stable appearing unenhanced upper abdominal structures. 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 He has had stable to mild progression from 2019 to 2022.?He started pirfenidone in November 2022.??He has evidence of grade II DD and RVSP elevated at 60mmHg with normal RV size and function. Technique: Spiral CT acquisition of the chest from the thoracic inlet to the upper abdomen without contrast. Full inspiratory and expiratory phase images of the lungs were obtained. MQ: CTCWO_6 CT Radiation dose: Integrated Dose-length product (DLP) for this visit = 330 mGy*cm CT Dose Reduction Employed: Automated exposure control (AEC) Comparison: 05/12/2022 RESULT: Limitations: Cardiorespiratory motion noted, limiting evaluation of inspiratory images in the lower lungs, and more so on expiratory phase images. Barrel Cooper (topogram) images: Hyperinflation, with flattened hemidiaphragms. No additional findings. Lines, tubes, and devices: None. Lung parenchyma: Bilateral lung bases are suboptimally evaluated on both sets of images. On lung windows, presumed retained secretions in the trachea and about the level of the carlos alberto. Minimal bronchial wall thickening suggestive of airways inflammation. On some of the expiratory phase images, near total luminal collapse of left lower lobe distal segmental or subsegmental bronchi may be present (images 210-224) and may represent a form of excessive dynamic airway collapse. Interstitial fibrotic changes, with localized areas of traction bronchiectasis noted, for example anterior right upper lobe image 130, and upper to midlung zone predominant subpleural reticulation changes, scattered with microcystic lucencies, minimally thickened interlobular septa, and peripheral intralobular interstitial thickening, with architectural distortion/mild volume loss (images 34, 67, 85, 97, 117, 123), with peripheral traction bronchiectasis/bronchiolectasis (images 129, 140, 237). Some areas may demonstrate paraseptal emphysematous lucencies (image 86). The lung bases demonstrate mildly more extensive interstitial fibrotic changes, although details are difficult to delineate due to motion. There are some areas of localized dense subpleural fibrosis suspected, for example right upper lobe image 137. I do not appreciate any enlarging nodules within limitations of the exam. There is suggestion of progression of disease compared to 05/12/2022 exam (see coronal MPR images 183 - 188 series 7 and compared to 166-195 series 602 on prior study and images 167-193 series 601 on 04/07/2019 exam), with progression more evident compared to 2019. Biapical subpleural scarring. Multiple high attenuation foci noted especially in the lung bases may relate to dendriform ossification, visible on prior exam. Pleural space: No pleural effusion. No pneumothorax. Lower neck, lymph nodes, and mediastinum: Visualized portions of the thyroid appear stable. No progressive axillary or supraclavicular lymphadenopathy meeting size criteria noted. Intrathoracically, intrathoracic lymphadenopathy, likely related to ILD, with subcarinal lymph node measuring up to 24 mm image 163, previously about 22 mm. Heart, pericardium, and thoracic vessels: CABG changes noted. Multivessel cachil dehe coronary artery calcifications. Atherosclerotic calcifications of the aorta and its branches noted including aortic root. Incidental left vertebral artery arising off the aortic arch, an anatomic variant. Ascending aorta measures 31 x 38 mm, probably within normal limits. Pulmonary trunk is 29 mm, borderline dilated. Left atrial dilation. Aortic valve leaflet calcifications noted, and may be associated with valvular stenosis. Left atrial dilation. Multichamber cardiomegaly suspected. No pericardial effusion. Focal mitral annular calcifications. Stable esophagus with some endoluminal gas, dilated distally. There may be tiny hiatal hernia. Bones and soft tissues: Mild bilateral gynecomastia, similar to 2022 exam but developed since 2019 exam. On bone window images, degenerative changes of the spine noted. Median sternotomy changes. Healed sternal segments. Upper abdomen: Atherosclerotic calcifications of the abdominal aorta and its branches, with celiac, SMA and bilateral renal artery stents in place. Otherwise stable appearing unenhanced upper abdominal structures. IMPRESSION IMPRESSION: Limited due to respiratory motion on inspiratory and expiratory phase (more content not included)... [facility] CT Chest WO contrastOrdered By: [facility] Provider on 10-17-2023 [facility] CNOVon 10-16-2023 CNOV Office Visit (PULMST ) EKTA ZIMMER ([id number]) 1945 M Date Time Provider Department 10/16/23 1:30 PM TIMI MORGAN PULMST During your visit today, we recorded the following information about you: Pulse Blood pressure Weight 51/minute 150/57 66.3 kg Olman Mancini MD 10/16/2023 2:24 PM Addendum Respiratory [place] Ekta Zimmer is a 78 year old male here for a follow up with the [facility] Interstitial Lung Disease Team. 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 He has had stable to mild progression from 2019 to 2022. He started pirfenidone in November 2022. He has evidence of grade II DD and RVSP elevated at 60mmHg with normal RV size and function. Last office visit was on 04/03/2023 when the plan was to check LFTs and follow up in [address] chest and PFTs Since the last visit, he has been doing okay. No worsening shortness of breath. No ED visits/ hospitalizations. On pirfenidone 801mg TID, tolerating well. No side effects. Had LFTs done at OSH. Using 3L NC at home at rest and 5L on exertion He bikes everyday at home. He states that he has been having runny nose for a few months now No congestion or post nasal drip He may have allergies but does not usually get symptoms around this time REVIEW OF SYSTEMS: MRC Dyspnea Scale: 5. Too breathless to leave the house, or breathless when dressing or undressing All others per history of present illness or otherwise negative on detailed 14 point review. PAST MEDICAL HISTORY 09/04: Acute, but ill-defined, cerebrovascular disease Comment: L hemispheric No date: Arrhythmia No date: Atherosclerosis of renal artery (HCC) No date: Atrial fib/flutter, transient Comment: Atrial flutter 08/30/12 No date: CAD (coronary atherosclerotic disease) 11/13/2007: CHRONIC KIDNEY DISEASE, STAGE III (MOD) No date: Diarrhea No date: Diverticulosis of colon (without mention of hemorrhage) No date: Essential hypertension, benign 04/23/2007: Impaired fasting glucose No date: Internal hemorrhoids without mention of complication No date: Occlusion and stenosis of carotid artery without mention of cerebral infarction Comment: LEFT No date: On home oxygen therapy Comment: since June 2019 No date: Other and unspecified hyperlipidemia No date: Peripheral vascular disease (HCC) Comment: Stents in L carotid, L renal artery, and B iliacs; R Cebul No date: Stroke ([facility]) Comment: TIAs. last occurrence 2003 PAST SURGICAL HISTORY [id number]: ARTHRP KNE CONDYLEANDPLATU MEDIALANDLAT COMPARTMENTS Comment: Dr Eber Drew 10/05: BYP OTH/THN VEIN COMMON-IPSILATERAL CAROTID Comment: L Carotid endovasc Endarectomy/stent 08/14/12: CABG (4) VEIN GRAFTS AND ARTERIAL GRAFT(S) Comment: GARRETT to 1st Dx AND LAD, Saph to OM and Post descending 08/12/2017: COLONOSCOPY FLX DX W/COLLJ SPEC WHEN PFRMD Comment: Colonoscopy 06/22/09: COLONOSCOPY W/BIOPSY SINGLE/MULTIPLE Comment: repeat due 11/06: ENDOVASC TAA STENT REPAIR Comment: L renal arteryangioplasty/stent 08/12/2017: ESOPHAGOGASTRODUODENOSCOPY TRANSORAL DIAGNOSTIC Comment: EGD 01/05: EVASC PLACEMENT ILIAC ARTERY OCCLUSION DEVICE Comment: bilat iliac angioplasty/stent No date: RPR 1ST INGUN HRNA AGE 5 YRS/> REDUCIBLE Comment: Left 10/30/10: RPR 1ST INGUN HRNA AGE 5 YRS/> REDUCIBLE Comment: Right 05/21/2016: TEAEC W/PATCH GRF CAROTID VERTB SUBCLAV NECK INC; Right No date: XCAPSL CTRC RMVL INSJ IO LENS PROSTH W/O ECP; Bilateral SOCIAL HISTORY: Social History Tobacco Use Smoking status: Former Types: Cigarettes, Cigars Quit date: 07/25/1982 Years since quittin.2 Smokeless tobacco: Never Tobacco comments: quit cigars Alcohol Use: Approximately 3.6 oz/week [which includes 6 Cans of Beer (12oz) per week] (OCCASIONALLY) Drug Use: No FAMILY HISTORY Problem Relation Age of Onset other (chf) Mother other (chf) Father Diabetes Brother x 2 Ischemic Heart Disease Son d. [place] Ischemic Heart Disease Son CABG Cancer Brother Diabetes Sister other (cabg) Brother x 2 ALLERGIES Allergen Reactions Dust Other: See Comments Mold Other: See Comments CURRENT MEDICATIONS pantoprazole (PROTONIX) 40 mg injectionInject 40 mg intravenously daily at 6 am.Disp: Rfl: pirfenidone (ESBRIET) 801 mg tabletTake 1 tablet by mouth three times a day with meals.Disp: 90 tabletRfl: 11 bumetanide (BUMEX) 1 mg tabletTake 1 tablet by mouth twice daily Once a dayDisp: Rfl: doxazosin (CARDURA) 4 mg tabletTake 4 mg by mouth daily at bedtime.Disp: Rfl: lisinopril (ZESTRIL) 40 mg tabletTake 40 mg by mouth once daily.Disp: Rfl: sertraline (ZOLOFT) 50 mg tabletDisp: Rfl: doxazosin (CARDURA) 2 mg tabletTake 2 mg by mouth daily at bedtime.Disp: Rfl: amLODIPine (NORVASC) 10 mg tabletDisp: (more content not included)... 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 He has had stable to mild progression from 2019 to 2022.?He started pirfenidone in November 2022.??He has evidence of grade II DD and RVSP elevated at 60mmHg with normal RV size and function. Technique: Spiral CT acquisition of the chest from the thoracic inlet to the upper abdomen without contrast. Full inspiratory and expiratory phase images of the lungs were obtained. MQ: CTCWO_6 CT Radiation dose: Integrated Dose-length product (DLP) for this visit = 330 mGy*cm CT Dose Reduction Employed: Automated exposure control (AEC) Comparison: 05/12/2022 RESULT: Limitations: Cardiorespiratory motion noted, limiting evaluation of inspiratory images in the lower lungs, and more so on expiratory phase images. Barrel Cooper (topogram) images: Hyperinflation, with flattened hemidiaphragms. No additional findings. Lines, tubes, and devices: None. Lung parenchyma: Bilateral lung bases are suboptimally evaluated on both sets of images. On lung windows, presumed retained secretions in the trachea and about the level of the carlos alberto. Minimal bronchial wall thickening suggestive of airways inflammation. On some of the expiratory phase images, near total luminal collapse of left lower lobe distal segmental or subsegmental bronchi may be present (images 210-224) and may represent a form of excessive dynamic airway collapse. Interstitial fibrotic changes, with localized areas of traction bronchiectasis noted, for example anterior right upper lobe image 130, and upper to midlung zone predominant subpleural reticulation changes, scattered with microcystic lucencies, minimally thickened interlobular septa, and peripheral intralobular interstitial thickening, with architectural distortion/mild volume loss (images 34, 67, 85, 97, 117, 123), with peripheral traction bronchiectasis/bronchiolectasis (images 129, 140, 237). Some areas may demonstrate paraseptal emphysematous lucencies (image 86). The lung bases demonstrate mildly more extensive interstitial fibrotic changes, although details are difficult to delineate due to motion. There are some areas of localized dense subpleural fibrosis suspected, for example right upper lobe image 137. I do not appreciate any enlarging nodules within limitations of the exam. There is suggestion of progression of disease compared to 05/12/2022 exam (see coronal MPR images 183 - 188 series 7 and compared to 166-195 series 602 on prior study and images 167-193 series 601 on 04/07/2019 exam), with progression more evident compared to 2020. Biapical subpleural scarring. Multiple high attenuation foci noted especially in the lung bases may relate to dendriform ossification, visible on prior exam. Pleural space: No pleural effusion. No pneumothorax. Lower neck, lymph nodes, and mediastinum: Visualized portions of the thyroid appear stable. No progressive axillary or supraclavicular lymphadenopathy meeting size criteria noted. Intrathoracically, intrathoracic lymphadenopathy, likely related to ILD, with subcarinal lymph node measuring up to 24 mm image 163, previously about 22 mm. Heart, pericardium, and thoracic vessels: CABG changes noted. Multivessel cachil dehe coronary artery calcifications. Atherosclerotic calcifications of the aorta and its branches noted including aortic root. Incidental left vertebral artery arising off the aortic arch, an anatomic variant. Ascending aorta measures 31 x 38 mm, probably within normal limits. Pulmonary trunk is 29 mm, borderline dilated. Left atrial dilation. Aortic valve leaflet calcifications noted, and may be associated with valvular stenosis. Left atrial dilation. Multichamber cardiomegaly suspected. No pericardial effusion. Focal mitral annular calcifications. Stable esophagus with some endoluminal gas, dilated distally. There may be tiny hiatal hernia. Bones and soft tissues: Mild bilateral gynecomastia, similar to 2022 exam but developed since 2019 exam. On bone window images, degenerative changes of the spine noted. Median sternotomy changes. Healed sternal segments. Upper abdomen: Atherosclerotic calcifications of the abdominal aorta and its branches, with celiac, SMA and bilateral renal artery stents in place. Otherwise stable appearing unenhanced upper abdominal structures. IMPRESSION: Limited due to respiratory motion on inspiratory and expiratory phase images especially in the lower lungs. 1. Compared to 05/12/2022 exam, there may be mild progression of interstitial fibrosis, difficult to (more content not included)... Normal [facility] CT Chest WO contraston 10-15 Radiology Study observation (narrative) [facility] Hepatic function 2000 panelo n 10-16-2023 Albumin [Mass/Vol] 3.9 g/dL Normal 3.9-4.9 [facility] Comment on above: Order Comment: Speci men Type: BLOOD SPECIMENOrdering Facility: [facility] Address: [address] [place] [address] Performed By: #### 2 4325-3 ####[facility] LABCLIA [id number] [place] [address] [place] ALP [Catalytic activity/Vol] 88 U/L Normal 38-113 [facility] Comment on above: Order Comment: Speci men Type: BLOOD SPECIMENOrdering Facility: [facility] Address: [address] [place] [address] Performed By: #### 2 4325-3 ####[facility] LABCLIA [id number] [place] [address] [place] ALT [Catalytic activity/Vol] 15 U/L Normal 10-54 [facility] Comment on above: Order Comment: Speci men Type: BLOOD SPECIMENOrdering Facility: [facility] Address: [address] [place] [address] Performed By: #### 2 4325-3 ####[facility] LABCLIA [id number] [place] [address] [place] AST [Catalytic activity/Vol] 16 U/L Normal 14-40 [facility] Comment on above: Order Comment: Speci men Type: BLOOD SPECIMENOrdering Facility: [facility] Address: [address] [place] [address] Performed By: #### 2 4325-3 ####[facility] LABCLIA [id number] [place] [id number] [place] Bilirubin [Mass/Vol] 0.2 mg/dL Normal 0.2-1.3 [facility] Comment on above: Order Comment: Speci men Type: BLOOD SPECIMENOrdering Facility: [facility] Address: [address] [place] [address] Performed By: #### 2 4325-3 ####[facility] LABCLIA [id number] [place] [address] [place] Bilirubin.conjuga jac [Mass/Vol] mg/dL Normal <0.2 [facility] Comment on above: Order Comment: Speci men Type: BLOOD SPECIMENOrdering Facility: [facility] Address: [address] [place] [address] Performed By: #### 2 4325-3 ####[facility] LABCLIA [id number] [place] [address] [place] Protein [Mass/Vol] 7.3 g/dL Normal 6.3-8.0 [facility] Comment on above: Order Comment: Speci men Type: BLOOD SPECIMENOrdering Facility: [facility] Address: [address] [place] [address] Performed By: #### 2 4325-3 ####[facility] LABCLIA [id number] [place] [address] [place] HEMOGLOBINon 10-14-2023 Hemoglobin (Bld) [Mass/Vol] 14.0 g/dL Normal 13.0 - 17.5 [facility] Comment on above: Performed By: #### 2 [id number] #### [facility],[address] [place], [place] [id number] CNPNon 10-10-2023 CNPN Telephone (PMNA11) EKTA ZIMMER ([id number]) 1945 Date Time Provider Department 10/10/23 TIMI MORGAN PMNA11 During your visit today, we recorded the following information about you: Tiny Candelario 10/10/2023 12:21 PM Signed Prior Authorization Documentation Prior authorization requested for the following medication: Medication: Pirfenidone Provider: Dr. Jane Insurance Company Name: Medicare Insurance Company Phone number: Patient ID number: [id number] [facility] ID # [id number] Pharmacy Name: [facility] Telephone number: [phone] Tiny Candelario 10/10/2023 12:41 PM Signed Admin is awaiting a decision on Pirfenidone 801MG tablets Tiny Melvin Kael October 10, 2023 12:24 PM Tiny Candelario 10/10/2023 1:27 PM Signed EKTA ZIMMER (Marshall: AMPARO) ELVIN Approved today by [employer] 2016 CaseId:[id number];Status:Approved Review Type:Prior Auth;Coverage Start Date:09/10/2023;Coverage End Date:10/09/2024 Authorization Expiration Date: 10/08/2024 Drug Pirfenidone 801MG tablets Jolie Candelariomariia 10/10/2023 3:37 PM Signed Supporting Information for an exception request or prior authorization has been printed and placed in providers folder to be completed. Tiny Melvin Kael October 10, 2023 3:36 PM Admin scanned a blank in pt's chart. Tiny Melvin Kael October 10, 2023 3:37 PM Allergies As of Date: 10/10/2023 Noted Allergy Reaction DUST 04/17/2019 14 - Other: See Comments MOLD 04/17/2019 14 - Other: See Comments Date Reviewed: 04/04/2023 Reviewed by: Timi Morgan MD - Fully Assessed Reason for Visit: Insurance Authorization [[id number]] Prescriptions as of 10/10/2023 - pantoprazole (PROTONIX) 40 mg injection Inject 40 mg intravenously daily at 6 am. - pirfenidone (ESBRIET) 801 mg tablet Take 1 tablet by mouth three times a day with meals. - bumetanide (BUMEX) 1 mg tablet Take 1 tablet by mouth twice daily Once a day - doxazosin (CARDURA) 4 mg tablet Take 4 mg by mouth daily at bedtime. - lisinopril (ZESTRIL) 40 mg tablet Take 40 mg by mouth once daily. - sertraline (ZOLOFT) 50 mg tablet - doxazosin (CARDURA) 2 mg tablet Take 2 mg by mouth daily at bedtime. - amLODIPine (NORVASC) 10 mg tablet - ascorbic acid, vitamin C, (VITAMIN C) 500 mg tablet Take 500 mg by mouth once daily. - allopurinol (ZYLOPRIM) 100 mg tablet Take 100 mg by mouth once daily. - cetirizine HCl (ZYRTEC) 10 mg chewable tablet Take 10 mg by mouth once daily. - potassium chloride ER (K-DUR, KLOR-CON) 20 mEq tablet Take 20 mEq by mouth twice daily. - doxazosin (CARDURA) 8 mg tablet Take 8 mg by mouth daily at bedtime. - iv contrast (will be provided with radiology test) CT Cardiac - No IV access, insert saline lock prior to the sedation, infusion, injection for imaging exam. Discontinue saline lock post exam. If Pt. has a central line or IVAD, may access for administration according to line specific nursing protocol. Once exam is complete flush line and de-access according to line specific nursing protocol in the CT contrast administration guidelines link. - bumetanide (BUMEX) 2 mg tablet Take 1 mg by mouth once daily. - hydrALAZINE (APRESOLINE) 100 mg tablet Take 100 mg by mouth three times daily. - ezetimibe (ZETIA) 10 mg tablet Take 1 tablet by mouth once daily. - ferrous sulfate 325 mg (65 mg iron) tablet Take 1 tablet by mouth twice daily with meals. - nitroglycerin sublingual (NITROQUICK) 0.4 mg SL tablet Dissolve 1 tablet under the tongue every 5 minutes as needed. FOR CHEST PAIN. IF NO RELIEF CALL 911 - carvedilol (COREG) 25 mg tablet Take 25 mg by mouth twice daily with meals. - atorvastatin (LIPITOR) 80 mg tablet Take 1 tablet by mouth once daily. - ASPIRIN 81 MG TAB Take one(1) tablet daily. - MULTIVITAMIN ORAL TAB Take one(1) tablet daily. 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 Normal [facility] HEMOGLOBINon 10-07-2023 Hemoglobin (Bld) [Mass/Vol] 14.2 g/dL Normal 13.0 - 17.5 [facility] Comment on above: Performed By: #### 2 [id number] #### [facility],[address] [place] [address] HEMOGLOBINon 09-30-2023 Hemoglobin (Bld) [Mass/Vol] 13.1 g/dL Normal 13.0 - 17.5 [facility] Comment on above: Performed By: #### 2 60058 #### [facility],[address] [place] [address] HEMOGLOBINon 09-23-2023 Hemoglobin (Bld) [Mass/Vol] 13.4 g/dL Normal 13.0 - 17.5 [facility] Comment on above: Performed By: #### 2 [id number] #### [facility],[address] [place] [address] BMP with MG DAILYon 09-16-19 24 AGE 78 years Normal [facility] Comment on above: Performed By: #### 2 11215 #### [facility],[address] [place] [address] Anion gap [Moles/Vol] 16 mmol/L Normal 10 - 20 [facility] [facility] Comment on above: Performed By: #### 2 96532 #### [facility],[address] [place] [address] 07268 BMP with MG DAILY Normal [facility] Comment on above: Result Comment: BASI C METABOLIC PANEL Performed By: #### 2 06663 #### [facility],[address] [place] [address] 52173 Calcium [Mass/Vol] 8.4 mg/dL Low 8.5 - 10.1 [facility] Comment on above: Performed By: #### 2 80206 #### [facility],[address] [place] [address] 63779 Chloride [Moles/Vol] 107 mmol/L Normal 98 - 107 [facility] Comment on above: Performed By: #### 2 79616 #### [facility],[address] [place] [address] 61575 CO2 [Moles/Vol] 23.5 mmol/L Normal 21.0 - 32.0 [facility] Comment on above: Performed By: #### 2 35153 #### [facility],[address] [place] [address] 11915 Creatinine [Mass/Vol] 2.53 mg/dL High 0.70 - 1.30 [facility] Comment on above: Performed By: #### 2 42281 #### [facility],[address] [place] [address] 25609 eGFR 25 ML/MINUTE Low 60 - 999 [facility] Comment on above: Performed By: #### 2 75994 #### [facility],[address] [place] [address] 23818 eGFR(AA) 30 ML/MINUTE Low 60 - 999 [facility] Comment on above: Result Comment: ACCO RDING TO THE NATIONAL KIDNEY DISEASE EDUCATION PROGRAM(NKDE), A NORMAL eGFR IS A VALUE GREATER THAN OR EQUAL TO 60 ML/MIN/1.73 SQ METERS. CHRONIC KIDNEY DISEASE: <60mL/MIN/1.73 SQ METERS KIDNEY FAILURE: <15mL/MIN/1.73 SQ METERS THIS TEST SHOULD ONLY BE USED FOR PATIENTS 18 YEARS OF AGE AND OLDER. Performed By: #### 2 [id number] #### [address] [address] Glucose [Mass/Vol] 132 mg/dL High 74 - 106 [facility] Comment on above: Performed By: #### 2 78410 #### [address] [address] Magnesium [Mass/Vol] 2.2 mg/dL Normal 1.8 - 2.4 [facility] Comment on above: Performed By: #### 2 18142 #### [address] [address] Potassium [Moles/Vol] 4.7 mmol/L Normal 3.5 - 5.1 [facility] Comment on above: Performed By: #### 2 67066 #### [address] [address] Sodium [Moles/Vol] 142 mmol/L Normal 136 - 145 [facility] Comment on above: Performed By: #### 2 20589 #### [address] [address] Urea nitrogen [Mass/Vol] 64 mg/dL High 7 - 18 [facility] Comment on above: Performed By: #### 2 92980 #### [address] [address] HEMOGLOBINon 09-16-2023 Hemoglobin (Bld) [Mass/Vol] 13.0 g/dL Normal 13.0 - 17.5 [facility] Comment on above: Performed By: #### 2 95532 #### [facility],[address] [place] [address] HEMOGLOBINon 09-09-2023 Hemoglobin (Bld) [Mass/Vol] 12.5 g/dL Low 13.0 - 17.5 [facility] Comment on above: Performed By: #### 2 04593 #### [facility],[address] [place] [address] HEMOGLOBINon 09-02-2023 Hemoglobin (Bld) [Mass/Vol] 12.9 g/dL Low 13.0 - 17.5 [facility] Comment on above: Performed By: #### 2 86580 #### [facility],[address] [place] [address] HEMOGLOBINon 08-20-2023 Hemoglobin (Bld) [Mass/Vol] 13.3 g/dL Normal 13.0 - 17.5 [facility] Comment on above: Performed By: #### 2 41142 #### [facility],[address] [place] [address] HEMOGLOBINon 08-12-2023 Hemoglobin (Bld) [Mass/Vol] 13.8 g/dL Normal 13.0 - 17.5 [facility] Comment on above: Performed By: #### 2 04482 #### [facility],[address] [place] [address] HEMOGLOBINon 08-05-2023 Hemoglobin (Bld) [Mass/Vol] 13.5 g/dL Normal 13.0 - 17.5 [facility] Comment on above: Performed By: #### 2 90714 #### [facility],[address] [place] [address] HEMOGLOBINon 07-30-2023 Hemoglobin (Bld) [Mass/Vol] 13.6 g/dL Normal 13.0 - 17.5 [facility] Comment on above: Performed By: #### 2 97582 #### [facility],[address] [place] [address] HEMOGLOBINon 07-22-2023 Hemoglobin (Bld) [Mass/Vol] 13.7 g/dL Normal 13.0 - 17.5 [facility] Comment on above: Performed By: #### 2 55947 #### [facility],[address] [place] [address] HEMOGLOBINon 07-15-2023 Hemoglobin (Bld) [Mass/Vol] 13.4 g/dL Normal 13.0 - 17.5 [facility] Comment on above: Performed By: #### 2 97791 #### [facility],[address] [place] [address] HEMOGLOBINon 07-08-2023 Hemoglobin (Bld) [Mass/Vol] 13.9 g/dL Normal 13.0 - 17.5 [facility] Comment on above: Performed By: #### 2 93093 #### [facility],[address] [place] [address] RENAL FUNCTION PANEL WITH eG FRon 07-08-2023 AGE 78 years Normal [facility] Comment on above: Performed By: #### 2 42702 #### [facility],[address] [place] [address] Albumin [Mass/Vol] 3.0 g/dL Low 3.4 - 5.0 [facility] Comment on above: Performed By: #### 2 75640 #### [facility],[address] [place] [address] B/C RATIO 19 ratio Normal 0 - 30 [facility] Comment on above: Performed By: #### 2 95362 #### [facility],[address] [place], [place] [id number] Calcium [Mass/Vol] 8.2 mg/dL Low 8.5 - 10.1 [facility] Comment on above: Performed By: #### 2 93862 #### [facility],[address] [place] [address] 88582 Chloride [Moles/Vol] 106 mmol/L Normal 98 - 107 [facility] Comment on above: Performed By: #### 2 26223 #### [facility],[address] [place] [address] 56019 CO2 [Moles/Vol] 24.6 mmol/L Normal 21.0 - 32.0 [facility] Comment on above: Performed By: #### 2 82739 #### [facility],[address] [place] [address] 32410 Creatinine [Mass/Vol] 2.46 mg/dL High 0.70 - 1.30 [facility] Comment on above: Performed By: #### 2 20161 #### [facility],[address] [place] [address] 88011 eGFR 26 ML/MINUTE Low 60 - 999 [facility] Comment on above: Performed By: #### 2 53598 #### [facility],[address] [place] [address] 51233 eGFR(AA) 31 ML/MINUTE Low 60 - 999 [facility] Comment on above: Result Comment: ACCO RDING TO THE NATIONAL KIDNEY DISEASE EDUCATION PROGRAM(NKDE), A NORMAL eGFR IS A VALUE GREATER THAN OR EQUAL TO 60 ML/MIN/1.73 SQ METERS. CHRONIC KIDNEY DISEASE: <60mL/MIN/1.73 SQ METERS KIDNEY FAILURE: <15mL/MIN/1.73 SQ METERS THIS TEST SHOULD ONLY BE USED FOR PATIENTS 18 YEARS OF AGE AND OLDER. Performed By: #### 2 39222 #### [facility],[address] [place] [address] 97639 Glucose [Mass/Vol] 134 mg/dL High 74 - 106 [facility] Comment on above: Performed By: #### 2 59679 #### [facility],[address] [place] [address] 34456 Phosphate [Mass/Vol] 4.1 mg/dL Normal 2.6 - 4.7 [facility] Comment on above: Performed By: #### 2 18292 #### [facility],[address] [place] [address] 10134 Potassium [Moles/Vol] 4.7 mmol/L Normal 3.5 - 5.1 [facility] Comment on above: Performed By: #### 2 42556 #### [facility],[address] [place] [address] 89549 RENAL FUNCTION PANEL WITH eGFR Normal [facility] Comment on above: Result Comment: EMILIE L FUNCTION PANEL Performed By: #### 2 30722 #### [facility],[address] [place] [address] 29510 Sodium [Moles/Vol] 141 mmol/L Normal 136 - 145 [facility] Comment on above: Performed By: #### 2 90741 #### [facility],[address] [place] [address] 97019 Urea nitrogen [Mass/Vol] 47 mg/dL High 7 - 18 [facility] Comment on above: Performed By: #### 2 02592 #### [facility],[address] [place] [address] 04251 URINE CREATININE AND PROTEIN RATIOon 07-08-2023 CREATININE UR 83.87 mg/dl Normal [facility] Comment on above: Performed By: #### 2 45313 #### [facility],[address] [place] [address] 09085 PC RATIO 2.81 mg/dL Normal 0.00 - 10.00 [facility] Comment on above: Performed By: #### 2 71108 #### [facility],[address] [place] [address] 66364 Protein (U) [Mass/Vol] 235.50 mg/dL High 0.00 - 10.00 [facility] Comment on above: Performed By: #### 2 14576 #### [facility],[address] [place] [address] 93023 HEMOGLOBINon 07-01-2023 Hemoglobin (Bld) [Mass/Vol] 13.2 g/dL Normal 13.0 - 17.5 [facility] Comment on above: Performed By: #### 2 82383 #### [facility],[address] [place] [address] HEMOGLOBINon 06-24-2023 Hemoglobin (Bld) [Mass/Vol] 14.3 g/dL Normal 13.0 - 17.5 [facility] Comment on above: Performed By: #### 2 09648 #### [facility],[address] [place] [address] HEMOGLOBINon 06-14-2023 Hemoglobin (Bld) [Mass/Vol] 13.6 g/dL Normal 13.0 - 17.5 [facility] Comment on above: Performed By: #### 2 89720 #### [facility],[address] [place] [address] HEMOGLOBINon 2023 Hemoglobin (Bld) [Mass/Vol] 13.2 g/dL Normal 13.0 - 17.5 [facility] Comment on above: Performed By: #### 2 17032 #### [facility],[address] [place] [address] HEMOGLOBINon 05-30-2023 Hemoglobin (Bld) [Mass/Vol] 13.2 g/dL Normal 13.0 - 17.5 [facility] Comment on above: Performed By: #### 2 18482 #### [facility],[address] [place] [address] HEMOGLOBINon 05-24-2023 Hemoglobin (Bld) [Mass/Vol] 14.8 g/dL Normal 13.0 - 17.5 [facility] Comment on above: Performed By: #### 2 97170 #### [facility],[address] [place] [address] CMP with eGFRon 05-17-2023 AGE 77 years Normal [facility] Comment on above: Performed By: #### 2 24291 #### [facility],[address] [place] [address] 05906 Albumin [Mass/Vol] 2.8 g/dL Low 3.4 - 5.0 [facility] Comment on above: Performed By: #### 2 32224 #### [facility],[address] [place] [address] 18326 Albumin/Globulin [Mass ratio] 0.6 {ratio} Low 0.9 - 1.6 [facility] Comment on above: Performed By: #### 2 55941 #### [facility],[address] [place] [address] 19677 ALK PHOS 98 U/L Normal 46 - 116 [facility] Comment on above: Performed By: #### 2 08579 #### [facility],[address] [place] [address] 12846 ALT [Catalytic activity/Vol] 12 U/L Low 16 - 63 [facility] Comment on above: Performed By: #### 2 85222 #### [facility],[address] [place] [address] 11492 Anion gap [Moles/Vol] 13 mmol/L Normal 10 - 20 [facility] Comment on above: Performed By: #### 2 89716 #### [facility],[address] [place] [address] 01747 AST [Catalytic activity/Vol] 11 U/L Low 15 - 37 [facility] Comment on above: Performed By: #### 2 58936 #### [facility],[address] [place] [address] 67233 B/C RATIO 22 ratio Normal 0 - 30 [facility] Comment on above: Performed By: #### 2 62211 #### [facility],[address] [place] [address] 54620 Bilirubin [Mass/Vol] 0.3 mg/dL Normal 0.2 - 1.0 [facility] Comment on above: Performed By: #### 2 01131 #### [facility],[address] [place] [address] 92733 Calcium [Mass/Vol] 8.7 mg/dL Normal 8.5 - 10.1 [facility] Comment on above: Performed By: #### 2 28528 #### [facility],[address] [place], [place] [address] Chloride [Moles/Vol] 105 mmol/L Normal 98 - 107 [facility] Comment on above: Performed By: #### 2 17539 #### [facility],[address] [place], [place] [address] CMP with eGFR Normal [facility] Comment on above: Result Comment: COMP REHENSIVE METABOLIC PANEL Performed By: #### 2 45499 #### [facility],[address] [place] [address] 77277 CO2 [Moles/Vol] 29.0 mmol/L Normal 21.0 - 32.0 [facility] Comment on above: Performed By: #### 2 15385 #### [facility],[address] [place] [address] 39671 Creatinine [Mass/Vol] 2.62 mg/dL High 0.70 - 1.30 [facility] Comment on above: Performed By: #### 2 09276 #### [facility],[address] [place] [address] 74599 eGFR 24 ML/MINUTE Low 60 - 999 [facility] Comment on above: Performed By: #### 2 63533 #### [facility],[address] [place] [address] 62926 eGFR(AA) 29 ML/MINUTE Low 60 - 999 [facility] Comment on above: Result Comment: ACCO RDING TO THE NATIONAL KIDNEY DISEASE EDUCATION PROGRAM(NKDE), A NORMAL eGFR IS A VALUE GREATER THAN OR EQUAL TO 60 ML/MIN/1.73 SQ METERS. CHRONIC KIDNEY DISEASE: <60mL/MIN/1.73 SQ METERS KIDNEY FAILURE: <15mL/MIN/1.73 SQ METERS THIS TEST SHOULD ONLY BE USED FOR PATIENTS 18 YEARS OF AGE AND OLDER. Performed By: #### 2 68474 #### [facility],[address] [place] [address] 91215 Globulin (S) [Mass/Vol] 4.7 g/dL High 1.5 - 3.8 [facility] Comment on above: Performed By: #### 2 62235 #### [facility],[address] [place] [address] 79786 Glucose [Mass/Vol] 108 mg/dL High 74 - 106 [facility] Comment on above: Performed By: #### 2 95997 #### [facility],[address] [place] [address] 88584 Potassium [Moles/Vol] 4.6 mmol/L Normal 3.5 - 5.1 [facility] Comment on above: Performed By: #### 2 03043 #### [facility],[address] [place] [address] 86919 Protein [Mass/Vol] 7.5 g/dL Normal 6.4 - 8.2 [facility] Comment on above: Performed By: #### 2 39989 #### [facility],[address] [place] [address] 32565 Sodium [Moles/Vol] 142 mmol/L Normal 136 - 145 [facility] Comment on above: Performed By: #### 2 76122 #### [facility],[address] [place] [address] 62367 Urea nitrogen [Mass/Vol] 58 mg/dL High 7 - 18 [facility] Comment on above: Performed By: #### 2 23035 #### [facility],[address] [place] [address] 91808 HEMOGLOBINon 05-17-2023 Hemoglobin (Bld) [Mass/Vol] 13.4 g/dL Normal 13.0 - 17.5 [facility] Comment on above: Performed By: #### 2 35281 #### [facility],[address] [place] [address] 26449 HEMOGLOBINon 05-10-2023 Hemoglobin (Bld) [Mass/Vol] 12.6 g/dL Low 13.0 - 17.5 [facility] Comment on above: Performed By: #### 2 72243 #### [facility],[address] [place] [address] 57066 HEMOGLOBINon 05-02-2023 Hemoglobin (Bld) [Mass/Vol] 12.7 g/dL Low 13.0 - 17.5 [facility] Comment on above: Performed By: #### 2 61131 #### [facility],[address] [place] [address] 71004 CNPNon 04-26-2023 JENN Telephone (MARCELO) EKTA ZIMMER ([id number]) 1945 M Date Time Provider Department 04/26/23 TIMI MORGAN During your visit today, we recorded the following information about you: Hussain Desai 04/26/2023 2:53 PM Signed Admin faxed signed oxygen SWO. Allergies As of Date: 04/26/2023 Noted Allergy Reaction DUST 04/17/2019 14 - Other: See Comments MOLD 04/17/2019 14 - Other: See Comments Date Reviewed: 04/04/2023 Reviewed by: Timi Morgan MD - Fully Assessed Reason for Visit: Oxygen SWO [Other] Prescriptions as of 04/26/2023 - pantoprazole (PROTONIX) 40 mg injection Inject 40 mg intravenously daily at 6 am. - pirfenidone (ESBRIET) 801 mg tablet Take 1 tablet by mouth three times a day with meals. - bumetanide (BUMEX) 1 mg tablet Take 1 tablet by mouth twice daily Once a day - doxazosin (CARDURA) 4 mg tablet Take 4 mg by mouth daily at bedtime. - lisinopril (ZESTRIL) 40 mg tablet Take 40 mg by mouth once daily. - sertraline (ZOLOFT) 50 mg tablet - doxazosin (CARDURA) 2 mg tablet Take 2 mg by mouth daily at bedtime. - amLODIPine (NORVASC) 10 mg tablet - ascorbic acid, vitamin C, (VITAMIN C) 500 mg tablet Take 500 mg by mouth once daily. - allopurinol (ZYLOPRIM) 100 mg tablet Take 100 mg by mouth once daily. - cetirizine HCl (ZYRTEC) 10 mg chewable tablet Take 10 mg by mouth once daily. - potassium chloride ER (K-DUR, KLOR-CON) 20 mEq tablet Take 20 mEq by mouth twice daily. - doxazosin (CARDURA) 8 mg tablet Take 8 mg by mouth daily at bedtime. - iv contrast (will be provided with radiology test) CT Cardiac - No IV access, insert saline lock prior to the sedation, infusion, injection for imaging exam. Discontinue saline lock post exam. If Pt. has a central line or IVAD, may access for administration according to line specific nursing protocol. Once exam is complete flush line and de-access according to line specific nursing protocol in the CT contrast administration guidelines link. - bumetanide (BUMEX) 2 mg tablet Take 1 mg by mouth once daily. - hydrALAZINE (APRESOLINE) 100 mg tablet Take 100 mg by mouth three times daily. - ezetimibe (ZETIA) 10 mg tablet Take 1 tablet by mouth once daily. - ferrous sulfate 325 mg (65 mg iron) tablet Take 1 tablet by mouth twice daily with meals. - nitroglycerin sublingual (NITROQUICK) 0.4 mg SL tablet Dissolve 1 tablet under the tongue every 5 minutes as needed. FOR CHEST PAIN. IF NO RELIEF CALL 911 - carvedilol (COREG) 25 mg tablet Take 25 mg by mouth twice daily with meals. - atorvastatin (LIPITOR) 80 mg tablet Take 1 tablet by mouth once daily. - ASPIRIN 81 MG TAB Take one(1) tablet daily. - MULTIVITAMIN ORAL TAB Take one(1) tablet daily. Facility-Administered Medications as of 04/26/2023 - perflutren lipid microspheres 1.3 mL in NaCl (PF) 0.9% 10 mL injection (DEFINITY) - sodium chloride 0.9 % (flush) 10 mL (BD POSIFLUSH) Problem List As Of Date 04/26/2023 Noted Resolved Occlusion and stenosis of carotid artery with c*05/17/2004 Essential Hypertension, Benign [I10] 07/20/2009 CVA [I67.89] 06/28/2006 CAROTID ART OCCL-NO INFARCT [I65.29] 09/18/2005 Hypercholesterolemia [E78.00] Atherosclerosis of renal artery (HCC) [I70.1] 11/21/2020 Atherosclerosis of [place] artery of extremity (*12/08/2004 08/12/2019 Personal history of unspecified circulatory dis*04/04/2005 10/13/2015 CHRONIC KIDNEY DISEASE, STAGE I [N18.1] 03/29/2006 11/13/2007 IMPAIRED FASTING GLUCOSE [R73.01] 04/23/2007 CKD (chronic kidney disease) stage 3, GFR 30-59*11/13/2007 HBP (high blood pressure) [I10] 07/20/2009 10/13/2015 Diarrhea [R19.7] 07/20/2009 10/13/2015 Ed (Erectile Dysfunction) [N52.9] 07/20/2009 Inguinal hernia [K40.90] 10/17/2010 Inguinal hernia without mention of obstruction *10/30/2010 08/12/2019 Peripheral vascular disease (HCC) [I73.9] 11/21/2020 CAD (coronary atherosclerotic disease) [I25.10] Paroxysmal atrial fibrillation (HCC) [I48.0] Inguinal pain [R10.30] 10/04/2012 10/13/2015 SVT (supraventricular tachycardia) (HCC) [I47.1*10/28/2012 08/12/2019 Essential hypertension with goal blood pressure*06/14/2015 Atherosclerosis of c[place] de[place] coronary artery of na*06/14/2015 Acute diastolic CHF (congestive heart failure) *07/11/2017 11/21/2020 Occult blood positive stool [R19.5] 07/30/2017 08/12/2019 Encounter for screening for malignant neoplasm *07/30/2017 Absolute anemia [D64.9] 07/30/2017 Basal cell carcinoma (BCC) of skin of left uppe*03/03/2018 Pulmonary HTN (HCC) [I27.20] 08/12/2019 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 Normal [facility] HEMOGLOBINon 04-26-2023 Hemoglobin (Bld) [Mass/Vol] 12.8 g/dL Low 13.0 - 17.5 [facility] Comment on above: Result Comment: {HH] Performed By: #### 2 [id number] #### [facility],[address] [place] [address] HEMOGLOBINon 04-19-2023 Hemoglobin (Bld) [Mass/Vol] 13.4 g/dL Normal 13.0 - 17.5 [facility] Comment on above: Result Comment: {HH] Performed By: #### 2 49550 #### [facility],[address] [place] [address] HEMOGLOBINon 04-12-2023 Hemoglobin (Bld) [Mass/Vol] 12.2 g/dL Low 13.0 - 17.5 [facility] Comment on above: Result Comment: {HH] Performed By: #### 2 33965 #### [facility],[address] [place] [address] HEMOGLOBINon 04-05-2023 Hemoglobin (Bld) [Mass/Vol] 12.9 g/dL Low 13.0 - 17.5 [facility] Comment on above: Result Comment: {HH] Performed By: #### 2 67940 #### [facility],[address] [place] [address] CNOVon 04-03-2023 CNOV Office Visit (PULMST ) EKTA ZIMMER ([id number]) 1945 M Date Time Provider Department 04/03/23 1:00 PM TIMI MORGAN During your visit today, we recorded the following information about you: Pulse Blood pressure Weight 64/minute 159/69 67.5 kg Olman Mancini MD 04/03/2023 2:55 PM Addendum [facility]piratory [place] Ekta Zimmer is a 77 year old male here for a follow up with the [facility] Interstitial Lung Disease Team. 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 He has had stable to mild progression from 2019 to 2022. He started pirfenidone in November 2022. He has evidence of grade II DD and RVSP elevated at 60mmHg with normal RV size and function Last visit on 02/05/2023 Since the last visit, he has been doing okay. No worsening shortness of breath. No ED visits/ hospitalizations. He could not enrol in pulmonary rehab his was sick and was hospitalized. But he bikes everyday at home. He uses only 2L [place] at home now. On pirfenidone 801mg TID, tolerating well. No side effects REVIEW OF SYSTEMS: MRC Dyspnea Scale: 5. Too breathless to leave the house, or breathless when dressing or undressing All others per history of present illness or otherwise negative on detailed 14 point review. PAST MEDICAL HISTORY Diagnosis Date Acute, but ill-defined, cerebrovascular disease 09/04 L hemispheric Arrhythmia Atherosclerosis of renal artery (HCC) Atrial fib/flutter, transient Atrial flutter 08/30/12 CAD (coronary atherosclerotic disease) CHRONIC KIDNEY DISEASE, STAGE III (MOD) 11/13/2007 Diarrhea Diverticulosis of colon (without mention of hemorrhage) Essential hypertension, benign Impaired fasting glucose 04/23/2007 Internal hemorrhoids without mention of complication Occlusion and stenosis of carotid artery without mention of cerebral infarction LEFT On home oxygen therapy since June 2019 Other and unspecified hyperlipidemia Peripheral vascular disease (HCC) Stents in L carotid, L renal artery, and B iliacs; R Cebul Stroke (HCC) TIAs. last occurrence 2003 PAST SURGICAL HISTORY Procedure Laterality Date ARTHRP KNE CONDYLEANDPLATU MEDIALANDLAT COMPARTMENTS [id number] Dr Eber Drew BYP OTH/THN VEIN COMMON-IPSILATERAL CAROTID 10/05 L Carotid endovasc Endarectomy/stent CABG (4) VEIN GRAFTS AND ARTERIAL GRAFT(S) 08/14/12 GARRETT to 1st Dx AND LAD, Saph to OM and Post descending COLONOSCOPY FLX DX W/COLLJ SPEC WHEN PFRMD 08/12/2017 Colonoscopy COLONOSCOPY W/BIOPSY SINGLE/MULTIPLE 06/22/09 repeat due 2020 ENDOVASC TAA STENT REPAIR 11/06 L renal arteryangioplasty/stent ESOPHAGOGASTRODUODENOSCOPY TRANSORAL DIAGNOSTIC 08/12/2017 EGD EVASC PLACEMENT ILIAC ARTERY OCCLUSION DEVICE 01/05 bilat iliac angioplasty/stent RPR 1ST INGUN HRNA AGE 5 YRS/> REDUCIBLE Left RPR 1ST INGUN HRNA AGE 5 YRS/> REDUCIBLE 10/30/10 Right TEAEC W/PATCH GRF CAROTID VERTB SUBCLAV NECK INC Right 05/21/2016 XCAPSL CTRC RMVL INSJ IO LENS PROSTH W/O ECP Bilateral SOCIAL HISTORY: Social History Tobacco Use Smoking status: Former Types: Cigarettes, Cigars Quit date: 07/25/1982 Years since quittin.7 Smokeless tobacco: Never Tobacco comments: quit cigars Alcohol Use: Approximately 3.6 oz/week [which includes 6 Cans of Beer (12oz) per week] (OCCASIONALLY) Drug Use: No FAMILY HISTORY Problem Relation Age of Onset other (chf) Mother other (chf) Father Diabetes Brother x 2 Ischemic Heart Disease Son d. [place] Ischemic Heart Disease Son CABG Cancer Brother Diabetes Sister other (cabg) Brother x 2 ALLERGIES Allergen Reactions Dust Other: See Comments Mold Other: See Comments CURRENT MEDICATIONS pantoprazole (PROTONIX) 40 mg injectionInject 40 mg intravenously daily at 6 am.Disp: Rfl: pirfenidone (ESBRIET) 801 mg tabletTake 1 tablet by mouth three times a day with meals.Disp: 90 tabletRfl: 11 bumetanide (BUMEX) 1 mg tabletTake 1 tablet by mouth twice daily Once a dayDisp: Rfl: doxazosin (CARDURA) 4 mg tabletTake 4 mg by mouth daily at bedtime.Disp: Rfl: sertraline (ZOLOFT) 50 mg tabletDisp: Rfl: amLODIPine (NORVASC) 10 mg tabletDisp: Rfl: ascorbic acid, vitamin C, (VITAMIN C) 500 mg tabletTake 500 mg by mouth once daily.Disp: Rfl: hydrALAZINE (APRESOLINE) 100 mg tabletTake 100 mg by mouth three times daily.Disp: Rfl: ezetimibe (ZETIA) 10 mg tabletTake 1 tablet by mouth once daily.Disp: 90 tabletRfl: 3 ferrous sulfate 325 mg (65 mg iron) tabletTake 1 tablet by mouth twice daily with meals.Disp: 60 tabletRfl: 5 nitroglycerin sublingual (NITROQUICK) 0.4 mg SL tabletDissolve 1 tablet under the tongue every 5 minutes as needed. FOR CHEST PAIN. IF NO RELIEF CALL 911Disp: 1 Bottle of 25Rfl: 5 carvedilol (COREG) 25 mg tabletTake 25 mg by mouth twic (more content not included)... Normal [facility] HEMOGLOBINon 03-29-2023 Hemoglobin (Bld) [Mass/Vol] 12.1 g/dL Low 13.0 - 17.5 [facility] Comment on above: Result Comment: {HH] Performed By: #### 2 19417 #### [place] [address] CBC (NO DIFF)on 03-22-2023 CBC panel Auto (Bld) Normal [facility] Comment on above: Result Comment: CBC( WITHOUT DIFFERENTIAL) Performed By: #### 2 98278 #### [facility],[address] [place] [address] Erythrocyte distribution width (RBC) [Ratio] 21.2 % High 12.0 - 15.6 [facility] Comment on above: Performed By: #### 2 12780 #### [facility],[address] [place] [address] Hematocrit (Bld) [Volume fraction] 40.8 % Normal 40.0 - 52.0 [facility] Comment on above: Performed By: #### 2 19632 #### [facility],[address],[place] [address] Hemoglobin (Bld) [Mass/Vol] 13.0 g/dL Normal 13.0 - 17.5 [facility] Comment on above: Performed By: #### 2 42869 #### [facility],[address] [place] [address] MCH (RBC) [Entitic mass] 28 pg Normal 27 - 33 [facility] Comment on above: Performed By: #### 2 19515 #### [facility],[address] [place] [address] MCHC 32 X10 3 Normal 32 - 36 [facility] Comment on above: Performed By: #### 2 84615 #### [place] [address] MCV (RBC) [Entitic vol] 87 fL Normal 81 - 98 [facility] Comment on above: Performed By: #### 2 44124 #### [place] [address] PLATELET 261 x10EE3/UL Normal 150 - 450 [facility] Comment on above: Performed By: #### 2 15318 #### [facility],[address] [place] [address] Platelet mean volume (Bld) [Entitic vol] 8.0 fL Normal 6.4 - 10.5 [facility] Comment on above: Result Comment: {CB] Performed By: #### 2 15950 #### [facility],[address] [place] [address] RBC 4.71 x 10EE6/UL Normal 4.50 - 6.00 [facility] Comment on above: Performed By: #### 2 48485 #### [place] [address] WBC 11.0 x 10EE3/UL High 4.5 - 10.8 [facility] Comment on above: Performed By: #### 2 81022 #### [facility],[address] [place], [place] [address] HEMOGLOBINon 03-15-2023 Hemoglobin (Bld) [Mass/Vol] 12.8 g/dL Low 13.0 - 17.5 [facility] Comment on above: Result Comment: {HH] Performed By: #### 2 67690 #### [facility],[address] [place] [address] HEMOGLOBINon 03-08-2023 Hemoglobin (Bld) [Mass/Vol] 12.5 g/dL Low 13.0 - 17.5 [facility] Comment on above: Result Comment: {HH] Performed By: #### 2 18337 #### [facility],[address] [place] [address] HEMOGLOBINon 03-01-2023 Hemoglobin (Bld) [Mass/Vol] 12.3 g/dL Low 13.0 - 17.5 [facility] Comment on above: Result Comment: {HH] Performed By: #### 2 50221 #### [facility],[address] [place] [address] HEMOGLOBINon 02-22-2023 Hemoglobin (Bld) [Mass/Vol] 11.7 g/dL Low 13.0 - 17.5 [facility] Comment on above: Result Comment: {HH] Performed By: #### 2 61422 #### [facility],[address] [place] [address] HEMOGLOBINon 02-14-2023 Hemoglobin (Bld) [Mass/Vol] 11.6 g/dL Low 13.0 - 17.5 [facility] Comment on above: Result Comment: {HH] Performed By: #### 2 51123 #### [facility],[address] [place] [address] 25-HYDROXY D2+D3 [CCL]on 25-Hydroxy D Total 31.9 ng/mL Normal 30.0-100.0 [facility] Comment on above: Result Comment: Defi cient: <20.1 ng/mL Insufficient: 20.1 - 29.9 ng/mL Sufficient: 30.0 - 100.0 ng/mL Toxic: >150.0 ng/mL Reference: Wayne KEENE, N Engl J Med (2007)[phone] This test was developed and its performance characteristics determined by the [facility]ology and Laboratory [facility] [place] at the [facility]. The U.S. Food and Drug Administration has not approved or cleared this test, however, FDA clearance or approval is not currently [place] [address] Jose Alas III, M.D. [id number] Performed By: #### 2 43583 #### [address] [address] 25-Hydroxy D2 <5.0 Normal [facility] Comment on above: Performed By: #### 2 18912 #### [address] [address] 25-Hydroxy D3 31.9 ng/mL Normal [facility] Comment on above: Performed By: #### 2 51385 #### [facility],[address] [place] [address] CNOVon 02-05-2023 CNOV Office Visit (PMNA11 ) EKTA ZIMMER ([id number]) 1945 M Date Time Provider Department 02/05/23 2:20 PM BRITTANEY VILLALBA PMNA11 During your visit today, we recorded the following information about you: Temperature Pulse Respiration Blood pressure 98.5 degrees 65/minute 16/minute 153/52 Weight 69.9 kg Brittaney Villalba APRN.[facility] 02/05/2023 4:52 PM Signed HISTORY OF PRESENT ILLNESS: Ekta Zimmer is a very pleasant 77 year old male who presents today for routine follow-up for idiopathic pulmonary fibrosis. Diagnosis based on CT chest with probable UIP and lack of other potential causes. He has had stable to mild progression from 2019 to 2022. He started pirfenidone in November 2022. Currently requires 3-4L oxygen. He has evidence of grade II DD and RVSP elevated at 60mmHg with normal RV size and function. Mr. Zimmer feels that his breathing is about the same, but he does feel significant dyspnea with exertion such as ADLs and showering. He taking the full dose of pirfenidone at 801mg TID. he is tolerating this very well with no side effects. He has been getting erythropoietin injections every week for anemia. He is exercising by walking more often, but has not been enrolled yet in pulmonary rehab. He is using 3L oxygen and his saturations have been in the 90s at all times. In November 2022, he was in [facility] for one week for pneumonia. He recovered fully from this. In the past couple days he has had an outbreak of Shingles on the left side of his face, and is currently on antiviral for 7 days. Had colonoscopy recently with 3 polyps removed Seeing both nephrology and cardiology soon. He denies near syncope, syncope, chest pain, palpitations, PND, orthopnea or lower extremity edema. REVIEW OF SYSTEMS: MRC Dyspnea Scale: 5. Too breathless to leave the house, or breathless when dressing or undressing Otherwise, all others per history of present illness or negative on detailed 14 point review. PAST MEDICAL HISTORY Diagnosis Date Acute, but ill-defined, cerebrovascular disease 09/04 L hemispheric Arrhythmia Atherosclerosis of renal artery (HCC) Atrial fib/flutter, transient Atrial flutter 08/30/12 CAD (coronary atherosclerotic disease) CHRONIC KIDNEY DISEASE, STAGE III (MOD) 11/13/2007 Diarrhea Diverticulosis of colon (without mention of hemorrhage) Essential hypertension, benign Impaired fasting glucose 04/23/2007 Internal hemorrhoids without mention of complication Occlusion and stenosis of carotid artery without mention of cerebral infarction LEFT On home oxygen therapy since June 2019 Other and unspecified hyperlipidemia Peripheral vascular disease (HCC) Stents in L carotid, L renal artery, and B iliacs; R Cebul Stroke (HCC) TIAs. last occurrence 2003 PAST SURGICAL HISTORY Procedure Later[facility] [id number] [facility] Eber Drew BYP OTH/THN VEIN COMMON-IPSILATERAL CAROTID 10/05 L Carotid endovasc Endarectomy/stent CABG (4) VEIN GRAFTS AND ARTERIAL GRAFT(S) 08/14/12 GARRETT to 1st Dx AND LAD, Saph to OM and Post descending COLONOSCOPY FLX DX W/COLLJ SPEC WHEN PFRMD 08/12/2017 Colonoscopy COLONOSCOPY W/BIOPSY SINGLE/MULTIPLE 06/22/09 repeat due 2020 ENDOVASC TAA STENT REPAIR 11/06 L renal arteryangioplasty/stent ESOPHAGOGASTRODUODENOSCOPY TRANSORAL DIAGNOSTIC 08/12/2017 EGD EVASC PLACEMENT ILIAC ARTERY OCCLUSION DEVICE 01/05 bilat iliac angioplasty/stent RPR 1ST INGUN HRNA AGE 5 YRS/> REDUCIBLE Left RPR 1ST INGUN HRNA AGE 5 YRS/> REDUCIBLE 10/30/10 Right TEAEC W/PATCH GRF CAROTID VERTB SUBCLAV NECK INC Right 05/21/2016 XCAPSL CTRC RMVL INSJ IO LENS PROSTH W/O ECP Bilateral SOCIAL HISTORY: Social History Tobacco Use Smoking status: Former Types: Cigarettes, Cigars Quit date: 07/25/1982 Years since quittin.5 Smokeless tobacco: Never Tobacco comments: quit cigars Alcohol Use: Approximately 3.6 oz/week [which includes 6 Cans of Beer (12oz) per week] (OCCASIONALLY) Drug Use: No FAMILY HISTORY Problem Relation Age of Onset other (chf) Mother other (chf) Father Diabetes Brother x 2 Ischemic Heart Disease Son d. [place] Ischemic Heart Disease Son CABG Cancer Brother Diabetes Sister other (cabg) Brother x 2 ALLERGIES Allergen Reactions Dust Other: See Comments Mold Other: See Comments CURRENT MEDICATIONS pirfenidone (ESBRIET) 801 mg tabletTake 1 tablet by mouth three times a day with meals.Disp: 90 tabletRfl: 11 bumetanide (BUMEX) 1 mg tabletTake 1 tablet by mouth twice daily Once a dayDisp: Rfl: doxazosin (CARDURA) 4 mg tabletTake 4 mg by mouth daily at bedtime.Disp: Rfl: lisinopril (ZESTRIL) 40 mg tabletTake 40 mg by mouth once daily.Disp: Rfl: sertraline (ZOLOFT) 50 mg tabletDisp: Rfl: doxazosin (CARDURA) 2 mg tabletTake 2 mg by mouth daily at bedti (more content not included)... Normal [facility], INTACT [CCL]on 02-03-20 23 PTH, Intact 49 pg/mL Normal 15-65 [facility] Comment on above: Result Comment: [facility] [address] [id number] Jose Alas III, M.D. [id number] Performed By: #### 2 87502 #### [facility],[address] [place] [address] 25-HYDROXY D2+D3on 3 25-hydroxyvitamin D3 [Mass/Vol] 31.9 ng/mL Normal 30.0-100.0 [facility] Comment on above: Order Comment: Speci men Type: BLOOD SPECIMENOrdering Facility: [facility] Address: [address] [place] [address] Result Comment: Defi cient: <20.1 ng/mL Insufficient: 20.1 - 29.9 ng/mL Sufficient: 30.0 - 100.0 ng/mL Toxic: >150.0 ng/mL Reference: Wayne KEENE, N Engl J Med (2007)357:266-81 This test was developed and its performance characteristics determined by the [facility]ology [facility] Laboratory Medicine [place] at the [facility]. The U.S. Food and Drug Administration has not approved or cleared this test, however, FDA clearance or approval is not currently required for clinical use. Performed By: #### D 2D3 ####[facility] LABCLIA [id number] [place] [id number] [place] Vitamin D2 [Mass/Vol] <5.0 Normal [facility] Comment on above: Order Comment: Speci men Type: BLOOD SPECIMENOrdering Facility: [facility] Address: [address] [place] [address] Performed By: #### D 2D3 ####[facility] LABCLIA [id number] [address] [address] [place] Vitamin D3 [Mass/Vol] 31.9 ng/mL Normal [facility] Comment on above: Order Comment: Speci men Type: BLOOD SPECIMENOrdering Facility: [facility] Address: [address] [place] [address] Performed By: #### D 2D3 ####[facility] LABCLIA [id number] HA GOMES [id number] [place] [address] [place] CBC (NO DIFF)on 02-01-2023 CBC panel Auto (Bld) Normal [facility] Comment on above: Result Comment: CBC( WITHOUT DIFFERENTIAL) Performed By: #### 2 96929 #### [facility],[address] [place], [place] [id number] Erythrocyte distribution width (RBC) [Ratio] 20.0 % High 12.0 - 15.6 [facility] Comment on above: Performed By: #### 2 25089 #### [facility],[address] [place], [place] [id number] Hematocrit (Bld) [Volume fraction] 34.5 % Low 40.0 - 52.0 [facility] Comment on above: Performed By: #### 2 01173 #### [facility],[address] [place] [address] Hemoglobin (Bld) [Mass/Vol] 10.9 g/dL Low 13.0 - 17.5 [facility] Comment on above: Performed By: #### 2 70004 #### [facility],[address] [place] [address] MCH (RBC) [Entitic mass] 27 pg Normal 27 - 33 [facility] Comment on above: Performed By: #### 2 49711 #### [facility],[address] [place] [address] MCHC 32 X10 3 Normal 32 - 36 [facility] Comment on above: Performed By: #### 2 76876 #### [facility],[address] [place] [address] MCV (RBC) [Entitic vol] 86 fL Normal 81 - 98 [facility] Comment on above: Performed By: #### 2 03157 #### [facility],[address] [place] [address] PLATELET 292 x10EE3/UL Normal 150 - 450 [facility] Comment on above: Performed By: #### 2 65323 #### [facility],[address] [place] [address] Platelet mean volume (Bld) [Entitic vol] 7.9 fL Normal 6.4 - 10.5 [facility] Comment on above: Result Comment: {CB] Performed By: #### 2 00176 #### [facility],[address] [place] [address] RBC 4.02 x 10EE6/UL Low 4.50 - 6.00 [facility] Comment on above: Performed By: #### 2 45083 #### [facility],[address] [place] [address] WBC 8.8 x 10EE3/UL Normal 4.5 - 10.8 [facility] Comment on above: Performed By: #### 2 13476 #### [facility],[address] [place] [address] PTH-Intact [facility] 12-0 Parathyrin.intact [Mass/Vol] 49 pg/mL Normal 15-65 [facility] Comment on above: Order Comment: Speci men Type: BLOOD SPECIMENOrdering Facility: [facility] Address: [address] [place], [place] [id number] Performed By: #### 2 731-8 ####[facility] LABCLIA [id number] [facility] [id number] [place] [address] [place] RENAL FUNCTION PANEL WITH eG FRon 02-01-2023 AGE 77 years Normal [facility] Comment on above: Performed By: #### 2 52700 #### [facility],[address] [place] [address] Albumin [Mass/Vol] 2.9 g/dL Low 3.4 - 5.0 [facility] Comment on above: Performed By: #### 2 64685 #### [facility],[address] [place] [address] B/C RATIO 25 ratio Normal 0 - 30 [facility] Comment on above: Performed By: #### 2 66038 #### [facility],[address] [place] [address] Calcium [Mass/Vol] 8.5 mg/dL Normal 8.5 - 10.1 [facility] Comment on above: Performed By: #### 2 39865 #### [facility],[address] [place] [address] Chloride [Moles/Vol] 105 mmol/L Normal 98 - 107 [facility] Comment on above: Performed By: #### 2 64949 #### [facility],[address] [place] [address]263 CO2 [Moles/Vol] 27.0 mmol/L Normal 21.0 - 32.0 [facility] Comment on above: Performed By: #### 2 34910 #### [facility],[address] [place] [address] Creatinine [Mass/Vol] 2.16 mg/dL High 0.70 - 1.30 [facility] Comment on above: Performed By: #### 2 14555 #### [facility],[address] [place] [address]772 eGFR 30 ML/MINUTE Low 60 - 999 [facility] Comment on above: Performed By: #### 2 49668 #### [facility],[address] [place] [address] eGFR(AA) 36 ML/MINUTE Low 60 - 999 [facility] Comment on above: Result Comment: ACCO RDING TO THE NATIONAL KIDNEY DISEASE EDUCATION PROGRAM(NKDE), A NORMAL eGFR IS A VALUE GREATER THAN OR EQUAL TO 60 ML/MIN/1.73 SQ METERS. CHRONIC KIDNEY DISEASE: <60mL/MIN/1.73 SQ METERS KIDNEY FAILURE: <15mL/MIN/1.73 SQ METERS THIS TEST SHOULD ONLY BE USED FOR PATIENTS 18 YEARS OF AGE AND OLDER. Performed By: #### 2 13293 #### [facility],[address] [place] [address] Glucose [Mass/Vol] 115 mg/dL High 74 - 106 [facility] Comment on above: Performed By: #### 2 87641 #### [facility],[address] [place] [address] Phosphate [Mass/Vol] 3.6 mg/dL Normal 2.6 - 4.7 [facility] Comment on above: Performed By: #### 2 79864 #### [facility],[address] [place] [address] Potassium [Moles/Vol] 4.7 mmol/L Normal 3.5 - 5.1 [facility] Comment on above: Performed By: #### 2 33797 #### [facility],[address] [place] [address] RENAL FUNCTION PANEL WITH eGFR Normal [facility] Comment on above: Result Comment: EMILIE L FUNCTION PANEL Performed By: #### 2 80679 #### [facility],[address] [place] [address]66 Sodium [Moles/Vol] 142 mmol/L Normal 136 - 145 [facility] Comment on above: Performed By: #### 2 72873 #### [facility],[address] [place] [address] Urea nitrogen [Mass/Vol] 53 mg/dL High 7 - 18 [facility] Comment on above: Performed By: #### 2 85974 #### [address] [address] URINE CREATININE AND PROTEIN RATIOon 02-01-2023 CREATININE UR 61.71 mg/dl Normal [facility] Comment on above: Performed By: #### 2 88097 #### [address] [address] PC RATIO 1.96 mg/dL Normal 0.00 - 10.00 [facility] Comment on above: Performed By: #### 2 93412 #### [facility],[address] [place] [address] Protein (U) [Mass/Vol] 120.90 mg/dL High 0.00 - 10.00 [facility] Comment on above: Performed By: #### 2 12389 #### [facility],[address] [place] [address] HEMOGLOBINon 01-25-2023 Hemoglobin (Bld) [Mass/Vol] 10.4 g/dL Low 13.0 - 17.5 [facility] Comment on above: Result Comment: {HH] Performed By: #### 2 08618 #### [facility],[address] [place] [address] HEMOGLOBINon 01-18-2023 Hemoglobin (Bld) [Mass/Vol] 11.2 g/dL Low 13.0 - 17.5 [facility] Comment on above: Result Comment: {HH] Performed By: #### 2 74049 #### [facility],[address] [place] [address] HEMOGLOBINon 01-11-2023 Hemoglobin (Bld) [Mass/Vol] 10.4 g/dL Low 13.0 - 17.5 [facility] Comment on above: Result Comment: {HH] Performed By: #### 2 97920 #### [facility],[address] [place] [address] HEMOGLOBINon 01-04-2023 Hemoglobin (Bld) [Mass/Vol] 10.7 g/dL Low 13.0 - 17.5 [facility] Comment on above: Performed By: #### 2 43526 #### [facility],[address] [place] [address] HEMOGLOBINon 12-21-2022 Hemoglobin (Bld) [Mass/Vol] 9.7 g/dL Low 13.0 - 17.5 [facility] Comment on above: Result Comment: {HH] Performed By: #### 2 41966 #### [facility],[address] [place] [address] HEMOGLOBINon 12-07-2022 Hemoglobin (Bld) [Mass/Vol] 9.1 g/dL Low 13.0 - 17.5 [facility] Comment on above: Performed By: #### 2 71064 #### [facility],[address] [place] [address] HEMOGLOBINon 11-30-2022 Hemoglobin (Bld) [Mass/Vol] 9.3 g/dL Low 13.0 - 17.5 [facility] Comment on above: Result Comment: {HH] Performed By: #### 2 42266 #### [facility],[address] [place] [address] HEMOGLOBINon 11-23-2022 Hemoglobin (Bld) [Mass/Vol] 9.6 g/dL Low 13.0 - 17.5 [facility] Comment on above: Result Comment: {HH] Performed By: #### 2 64710 #### [facility],[address] [place] [address] HEMATOCRITon 11-16-2022 Hematocrit (Bld) [Volume fraction] 28.6 % Low 40.0 - 52.0 [facility] Comment on above: Result Comment: {HH] Performed By: #### 2 55726 #### [facility],[address] [place] [address] HEMOGLOBINon 11-16-2022 Hemoglobin (Bld) [Mass/Vol] 8.9 g/dL Low 13.0 - 17.5 [facility] Comment on above: Result Comment: {HH] Performed By: #### 2 46689 #### [facility],[address] [place] [address] XR CHEST 2V FRONTAL/LATon [facility] OXIMETRY WITH AMBULATIONon 0 09-11-2022 [facility] OXIMETRY WITH AMBULATIONon 0 08-02-2022 [facility] CNOVon 07-15-2017 CNOV Office Visit (AGCARDWST) Emeka ZIMMER ([id number]) 1945 MDate Time Provider Department07/15/17 10:30 AM MARIO GARCIA AGCARDWST During your visit today, we recorded the following information about you: Pulse Blood pressure Weight 74/minute 152/52 79.8 kgMario Garcia MD 07/16/2017 6:18 PM SignedPERTINENT CARDIAC HISTORYHTNCVA 2004DMHyperlipidemiaCarotid disease - left stent 2003, right CEA 2017PAD with bilat iliac and LEFT renal artery peripheral interventionsASCVD with CABG 08/14/12 (Shira)SVTCRFADHERENCE TO GUIDELINESACE-I or ARB for HF with prior LVEF<40 (NQF 0081) - CRF, consider low doseASA or Plavix for ASHD (NQF 0067) - metBeta greg for ASHD with prior [place] or prior LVEF<40 (NQF 0070) - metBeta greg for HF with prior LVEF<40 (NQF 0083) - N/AACE-I or ARB for ASHD with DM or prior LVEF<40 (NQF 0066) - metStatin therapy for ASHD or FHL or DM - metBMI documented and plan if >25 (NQF 0421) - lifestyle recommendation formTobacco use screening and referral (NQF 0028) - lifestyle recommendation formRecommendation for whole food, plant based diet - lifestyle recommendation formCLINICAL IMPRESSION/PLAN:Ekta Zimmer has had multiple changes made in medications. He developed somevolume overload. It is uncertain whether there has been any change in hisunderlying LV function. I'm concerned about the possibility of ischemia, givenhis recent chest tightness, but he relates this to the addition of clonidine.The reason for his decompensation remains unclear.Chest x-ray will be repeated to see if his effusions and vascularredistribution have improved. Echocardiogram will be done for assessment of LVfunction.I recommended that he continue his low-dose lisinopril. Stress test will beconsidered. We may consider the addition of carvedilol, depending upon hisblood pressures over the next week and his LV function.I've asked him to continue to hold his Lasix for the time being. He seems to betolerating this well and there has been some improvement in his volume status.I will see him in 3 months or as needed.Written and verbal health teaching given to patient, patient verbalizesunderstanding and agrees with treatment plan.DIAGNOSIS FOR VISIT:HypertensionASHDHISTORY OF PRESENT ILLNESSLarry Mariia Zimmer returns for follow-up of multiple cardiac issues, as noted above.There have been multiple changes made in his medication over the last severalmonths. Diuretics were discontinued due to elevated creatinine. Afterimprovement, and with the development of fluid overload, he was started onLasix. He noted some intermittent tightness in his chest when he was started onclonidine. He was taken off lisinopril because of renal insufficiency but hasbeen restarted on a lower dose. He reports that multiple doctors and makechanges in his medication. He is now off Lasix and clonidine and the chesttightness has resolved.He's had no exertional chest tightness. He has had worsening ankle edema. He'shad minimal orthopnea. He denies syncope, palpitations, TIAs, amaurosis andclaudication.ALLERGIES:ALLERGI ESNo Known AllergiesCURRENT OUTPATIENT MEDICATIONS:doxazosin (CARDURA) 8 mg tablet Take 2 tablets by mouth daily at bedtime.lisinopril (PRINIVIL) 10 mg tablet Take 1 tablet by mouth once daily.ezetimibe (ZETIA) 10 mg tablet Take 1 tablet by mouth once daily.amLODIPine (NORVASC) 10 mg tablet Take 1 tablet by mouth once daily.metoprolol tartrate, short acting, (LOPRESSOR) 25 mg tablet Take 1 tablet bymouth twice daily. Indications: 25 mg morning and 25 mg eveningatorvastatin (LIPITOR) 80 mg tablet Take 1 tablet by mouth once daily.dicyclomine (BENTYL) 10 mg capsule Take 1 capsule by mouth three times daily asneeded. Take before heading out to eat. You may take two, if needed.nitroglycerin sublingual 0.4 mg SL tablet Dissolve 1 tablet under the tongueevery 5 minutes as needed. FOR CHEST PAIN. IF NO RELIEF CALL 911ASPIRIN 81 MG TAB Take one(1) tablet daily.MULTIVITAMIN ORAL TAB Take one(1) tablet daily.MEDICATION, NON-DATABASE Take 2 tablets by mouth once daily. MULTIDOPHILUS FORDIARRHEA.PAST MEDICAL HISTORYDiagnosis Date- Acute, but ill-defined, cerebrovascular disease 09/04 L hemispheric- Atherosclerosis of renal artery (HCC)- Atrial fib/flutter, transient Atrial flutter 08/30/12- CAD (coronary atherosclerotic disease)- CHRONIC KIDNEY DISEASE, STAGE III (MOD) 11/13/2007- Diarrhea- Diverticulosis of colon (without mention of hemorrhage)- Essential hypertension, benign Dr Murphy- Impaired fasting glucose 04/23/2007- Internal hemorrhoids without mention of complication- Occlusion and stenosis of carotid artery without mention of cerebralinfarction LEFT- Other and unspecified hyperlipidemia- Peripheral vascular disease (HCC) Stents in L carotid, L renal artery, and B iliacs; R CebulPAST SURGICAL HISTORYProcedure Laterality Date- BYPASS GRAFT OTHR,CAROTID 10/05 L Carotid endovasc Endarectomy/stent- CABG (4) VEIN GRAFTS AND ARTERIAL GRAFT(S) 08/14/12 GARRETT to 1st Dx AND LAD, Saph to OM and Post descending- COLONOSCOPY W/BX 06/22/09 repeat due 2020- ENDOVAS ILIAC ANEURYSM STENT R 01/05 bilat iliac angioplasty/stent- ENDOVASC TAA STENT REPAIR 11/06 L renal arteryangioplasty/stent- REPAIR ING HERNIA,5+Y/O,REDUCIBL Left- REPAIR ING HERNIA,5+Y/O,REDUCIBL 10/30/10 Right- THROMBOENDARTECTMY NECK,NECK INCIS Right 05/21/2016- TOTAL KNEE REPLACEMENT [id number] Dr Eber Matthews HISTORYProblem Relation Age of Onset- chf [OTHER] Mother- chf [OTHER] Father- Diabetes Brother x 2- Ischemic Heart Disease Son d. 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 Enjoys working on cars.REVIEW OF SYSTEMS: General: No chills, fever, weight loss, night sweats.Respiratory: No productive cough. Cardiac: As noted above. GI: No melena.: No dysuria. Musculoskeletal: No myalgias.PHYSICAL EXAMINATION: S/he is alert and in no distress.VITAL SIGNS: BP 152/52[left manual[ Pulse 74 Wt 175 lb 14.4 oz (79.8kg)SHEENT: Skin is warm and dry. No xanthelasmas appreciated. Pharynx isbenign. There is no oral cyanosis. Neck: supple. No adenopathy or thyroidenlargement. Chest: Clear to percussion and auscultation. Trachea is midline. Air entry is equal. There is no chest wall tenderness. Cardiac: Regularrhythm. S1 and S2 are normal. PMI is nondisplaced. There is a 1/6 systolicejection murmur. No click is heard. Carotids are brisk with soft bilateralbruits. JVP is less than 10 cm. Abdomen: Soft and nontender. There are nopulsatile masses or bruits. No liver enlargement. Bowel sounds are active.Extremities: No edema. Pulses are intact and symmetrical. No clubbing orcyanosis. No femoral bruits. Neurologic: Grossly normal motor and sensory.S/he is alert and oriented x4.Recent chest x-ray showed mild interstitial pulmonary edema with smalleffusions.Carotid Doppler examination showed bilateral external carotid stenosis. Theinternals showed no significant narrowing. There is evidence of subclaviandisease bilaterally as well.EKG shows sinus rhythm. There is LVH.Most recent labs show worsening of renal insufficiency. There is evidence ofdecompensated heart failure.Electronically Signed:Mario Garcia, 2017 11:10 [facility]:Bob Ceron MD 07/15/2017 11:10 AM SignedLIFESTYLE CHANGEA healthy lifestyle is the most important component of your overall treatmentplan. Please give serious thought to the following areas and commit to makinglong term changes.EAT A WHOLE FOOD, PLANT BASED DIETThe nutrition your body gets is more important than the medicine you take.What matters most is the overall way you eat. We encourage you to minimize theuse of animal products (which include dairy and all meats except fatty fish)and use whole, unprocessed plant foods to provide your protein, vitamins andother nutrients. We have a lot of information to share with you on this topic.This is not a diet . It is a way of life that you will keep with you.EXERCISE REGULARLYIt is not important to spend hours in the gym, lifting weights and perspiringheavily. A total of 2-3 hours per week of aerobic (causing you to bemoderately short of breath) exercise is sufficient to improve your health.Talk to us before you begin a new exercise program, if you have heart diseaseor experience shortness of breath or chest pain.REDUCE STRESSChronic emotional and physical stress leads to disease. Ways of reducingstress include meditation, visualization, prayer, yoga and other forms ofrelaxation therapy. Consistency is the marshall. Find a technique that works foryou and do it every day.CULTIVATE RELATIONSHIPSLoneliness and isolation have a major negative impact on health. Seek outothers who can love, care for and nurture you. Avoid hurtful relationships.MAINTAIN IDEAL BODY WEIGHTThe best way to do this is to do all the things above. Our bodies naturallyfind the right weight if we keep moving and feed ourselves the right food. Ifyour BMI is greater than 25, we strongly recommend a referral to a weightmanagement program. Please speak to us or your family physician aboutavailable programs.AVOID NICOTINE IN ALL FORMSThis includes all tobacco products, whether chewed, smoked, vaped, or rubbed onthe skin. Smoking cessation programs, which can make use of tobaccosubstitutes, medications to suppress cravings and behavior management, areavailable. Please contact your family physician about programs in your area.Referring Provider: MARIO GARCIA [[id number]]Allergies As of Date: 07/15/2017(No Known Allergies)Date Reviewed: 07/15/2017Reviewed by: Tea Escoto) JEROD Liriano - Fully AssessedReason for Visit: Established Patient [175]Primary Visit Diagnosis:Atherosclerosis of cachil dehe coronary artery of c[place] dehe heart without angina pectoris [I25.10] Other Visit Diagnoses:Chronic diastolic CHF (congestive heart failure) (HCC) [I50.32] Hypertension, essential [I10] ASHD (arteriosclerotic heart disease) [I25.10]Order(s):doxazosin (CARDURA) 8 mg tabletTake 2 tablets by mouth daily at bedtime.Disp: 180 tabletRfl: 3 BASIC METABOLIC PNL [SQBMP] Order #: [id number] FUTURE ECHO [[id number]] Order #: [id number]: 1 FUTUREPrescriptions as of 07/15/2017 Sig: DOXAZOSIN 8 MG TABLET Take 2 tablets by mouth daily* LISINOPRIL 10 MG TABLET Take 1 tablet by mouth once d* EZETIMIBE 10 MG TABLET Take 1 tablet by mouth once d* AMLODIPINE 10 MG TABLET Take 1 tablet by mouth once d* METOPROLOL TARTRATE 25 MG TAB* Take 1 tablet by mouth twice * ATORVASTATIN 80 MG TABLET Take 1 tablet by mouth once d* DICYCLOMINE 10 MG CAPSULE Take 1 capsule by mouth three* NITROGLYCERIN 0.4 MG SUBLINGU* Dissolve 1 tablet under the t* * ASPIRIN 81 MG TABLET Take one(1) tablet daily. * MULTIVITAMIN TABLET Take one(1) tablet daily. * MEDICATION, NON-DATABASE Take 2 tablets by mouth once *Problem List As Of Date 07/15/2017 Noted Resolved CAROTID ART OCCL-CEREBRAL INFARCT [I63.239] INVALID FOR* Essential Hypertension, Benign [I10] 07/20/2009 CVA [I67.89] 06/28/2006 CAROTID ART OCCL-NO INFARCT [I65.29] 09/18/2005 More... Hypercholesterolemia [E78.00] RENAL ARTERY ATHEROSCLEROSIS [I70.1] Atherosclerosis of c[place]he artery of extremity (*INVALID FOR* Personal history of unspecified circulatory dis*INVALID FOR*10/13/2015 More... CHRONIC KIDNEY DISEASE, STAGE I [N18.1] INVALID FOR*11/13/2007 IMPAIRED FASTING GLUCOSE [R73.01] INVALID FOR* Chronic kidney disease, stage III (moderate) [N*INVALID FOR* More... HBP (high blood pressure) [I10] INVALID FOR*10/13/2015 More... Diarrhea [R19.7] INVALID FOR*10/13/2015 Ed (Erectile Dysfunction) [N52.9] INVALID FOR* Inguinal hernia [K40.90] INVALID FOR* Unilat ing hernia [K40.90] INVALID FOR* Peripheral vascular disease [I73.9] CAD (coronary atherosclerotic disease) [I25.10] Paroxysmal atrial fibrillation (HCC) [I48.0] More... Inguinal pain [R10.30] INVALID FOR*10/13/2015 SVT (supraventricular tachycardia) [I47.1] INVALID FOR* Essential hypertension with goal blood pressure*INVALID FOR* Atherosclerosis of cachil dehe coronary artery of na*INVALID FOR* Acute diastolic CHF (congestive heart failure) *INVALID FOR* More... Other instructions from your clinician: LIFESTYLE CHANGE A healthy lifestyle is the most important component of your overall treatment plan. Please give serious thought to the following areas and commit to making product management internship changes. EAT A WHOLE FOOD, PLANT BASED DIET The nutrition your body gets is more important than the medicine you take. What matters most is the overall way you eat. We encourage you to minimize the use of animal products (which include dairy and all meats except fatty fish) and use whole, unprocessed plant foods to provide your protein, vitamins and other nutrients. We have a lot of information to share with you on this topic. This is not a diet . It is a way of life that you will keep with you. EXERCISE REGULARLY It is not important to spend hours in the gym, lifting weights and perspiring heavily. A total of 2-3 hours per week of aerobic (causing you to be moderately short of breath) exercise is sufficient to improve your health. Talk to us before you begin a new exercise program, if you have heart disease or experience shortness of breath or chest pain. REDUCE STRESS Chronic emotional and physical stress leads to disease. Ways of reducing stress include meditation, visualization, prayer, yoga and other forms of relaxation therapy. Consistency is the marshall. Find a technique that works for you and do it every day. CULTIVATE RELATIONSHIPS Loneliness and isolation have a major negative impact on health. Seek out others who can love, care for and nurture you. Avoid hurtful relationships. MAINTAIN IDEAL BODY WEIGHT The best way to do this is to do all the things above. Our bodies naturally find the right weight if we keep moving and feed ourselves the right food. If your BMI is greater than 25, we strongly recommend a referral to a weight management program. Please speak to us or your family physician about available programs. AVOID NICOTINE IN ALL FORMS This includes all tobacco products, whether chewed, smoked, vaped, or rubbed on the skin. Smoking cessation programs, which can make use of tobacco substitutes, medications to suppress cravings and behavior management, are available. Please contact your family physician about programs in your area.Prescriptions ordered this encounter Disp Refills Start End DOXAZOSIN 8 MG TABLET 180 * 3 07/15/2017 Route: ORAL Sig: Take 2 tablets by mouth daily at bedtime.Medications Discontinued During This Encounter doxazosin (CARDURA) 8 mg tablet 180 * 3 07/16/2016 07/15/2017 Route: ORAL Sig: Take 2 tablets by mouth daily at bedtime. Disc: Reason for discontinue is not on file. Status:Closed by MARIO GARCIA MD on 07/16/17 Normal [facility] PROGRESSon 07-15-2017 PROGRESS HNO ID: [id number] thor: Mario Lancaster: (none)Author Type: PhysicianType: Progress NotesFiled: 07/16/2017 6:18 PMNote Text:PERTINENT CARDIAC HISTORYHTNCVA 2004DMHyperlipidemiaCarotid disease - left stent 2003, right CEA 2016PAD with bilat iliac and LEFT renal artery peripheral interventionsASCVD with CABG 08/14/12 (Shira)SVTCRFADHERENCE TO GUIDELINESACE-I or ARB for HF with prior LVEF<40 (NQF 0081) - CRF, consider low doseASA or Plavix for ASHD (NQF 0067) - metBeta greg for ASHD with prior [place] or prior LVEF<40 (NQF 0070) - metBeta greg for HF with prior LVEF<40 (NQF 0083) - N/AACE-I or ARB for ASHD with DM or prior LVEF<40 (NQF 0066) - metStatin therapy for ASHD or FHL or DM - metBMI documented and plan if >25 (NQF 0421) - lifestyle recommendation formTobacco use screening and referral (NQF 0028) - lifestyle recommendationformRecommendation for whole food, plant based diet - lifestyle recommendationformCLINICAL IMPRESSION/PLAN:Ekta Zimmer has had multiple changes made in medications. He developedsome volume overload. It is uncertain whether there has been any change inhis underlying LV function. I'm concerned about the possibility ofischemia, given his recent chest tightness, but he relates this to theaddition of clonidine. The reason for his decompensation remains unclear.Chest x-ray will be repeated to see if his effusions and vascularredistribution have improved. Echocardiogram will be done for assessmentof LV function.I recommended that he continue his low-dose lisinopril. Stress test willbe considered. We may consider the addition of carvedilol, depending uponhis blood pressures over the next week and his LV function.I've asked him to continue to hold his Lasix for the time being. He seemsto be tolerating this well and there has been some improvement in hisvolume status.I will see him in 3 months or as needed.Written and verbal health teaching given to patient, patient verbalizesunderstanding and agrees with treatment plan.DIAGNOSIS FOR VISIT:HypertensionASHDHISTORY OF PRESENT ILLNESSEkta Zimmer returns for follow-up of multiple cardiac issues, as notedabove.There have been multiple changes made in his medication over the lastseveral months. Diuretics were discontinued due to elevated creatinine.After improvement, and with the development of fluid overload, he wasstarted on Lasix. He noted some intermittent tightness in his chest whenhe was started on clonidine. He was taken off lisinopril because of renalinsufficiency but has been restarted on a lower dose. He reports thatmultiple doctors and make changes in his medication. He is now off Lasixand clonidine and the chest tightness has resolved.He's had no exertional chest tightness. He has had worsening ankle edema.He's had minimal orthopnea. He denies syncope, palpitations, TIAs,amaurosis and claudication.ALLERGIES:ALLERGIESN o Known AllergiesCURRENT OUTPATIENT MEDICATIONS:doxazosin (CARDURA) 8 mg tablet Take 2 tablets by mouth daily at bedtime.lisinopril (PRINIVIL) 10 mg tablet Take 1 tablet by mouth once daily.ezetimibe (ZETIA) 10 mg tablet Take 1 tablet by mouth once daily.amLODIPine (NORVASC) 10 mg tablet Take 1 tablet by mouth once daily.metoprolol tartrate, short acting, (LOPRESSOR) 25 mg tablet Take 1 tabletby mouth twice daily. Indications: 25 mg morning and 25 mg eveningatorvastatin (LIPITOR) 80 mg tablet Take 1 tablet by mouth once daily.dicyclomine (BENTYL) 10 mg capsule Take 1 capsule by mouth three timesdaily as needed. Take before heading out to eat. You may take two, ifneeded.nitroglycerin sublingual 0.4 mg SL tablet Dissolve 1 tablet under thetongue every 5 minutes as needed. FOR CHEST PAIN. IF NO RELIEF CALL 911ASPIRIN 81 MG TAB Take one(1) tablet daily.MULTIVITAMIN ORAL TAB Take one(1) tablet daily.MEDICATION, NON-DATABASE Take 2 tablets by mouth once daily. MULTIDOPHILUSFOR DIARRHEA.PAST MEDICAL HISTORYDiagnosis Date- Acute, but ill-defined, cerebrovascular disease 09/04 L hemispheric- Atherosclerosis of renal artery (HCC)- Atrial fib/flutter, transient Atrial flutter 08/30/12- CAD (coronary atherosclerotic disease)- CHRONIC KIDNEY DISEASE, STAGE III (MOD) 11/13/2007- Diarrhea- Diverticulosis of colon (without mention of hemorrhage)- Essential hypertension, benign Dr Murphy- Impaired fasting glucose 04/23/2007- Internal hemorrhoids without mention of complication- Occlusion and stenosis of carotid artery without mention of cerebralinfarction LEFT- Other and unspecified hyperlipidemia- Peripheral vascular disease (HCC) Stents in L carotid, L renal artery, and B iliacs; R CebulPAST SURGICAL HISTORYProcedure Laterality Date- BYPASS GRAFT OTHR,CAROTID 10/05 L Carotid endovasc Endarectomy/stent- CABG (4) VEIN GRAFTS AND ARTERIAL GRAFT(S) 08/14/12 GARRETT to 1st Dx AND LAD, Saph to OM and Post descending- COLONOSCOPY W/BX 06/22/09 repeat due 2020- ENDOVAS ILIAC ANEURYSM STENT R 01/05 bilat iliac angioplasty/stent- ENDOVASC TAA STENT REPAIR 11/06 L renal arteryangioplasty/stent- REPAIR ING HERNIA,5+Y/O,REDUCIBL Left- REPAIR ING HERNIA,5+Y/O,REDUCIBL 10/30/10 Right- THROMBOENDARTECTMY NECK,NECK INCIS Right 05/21/2016- TOTAL KNEE REPLACEMENT [id number] Dr Eber DrewFAMILY HISTORYProblem Relation Age of Onset- chf [OTHER] Mother- chf [OTHER] Father- Diabetes Brother x 2- Ischemic Heart Disease Son d. 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 Enjoys working on cars.REVIEW OF SYSTEMS: General: No chills, fever, weight loss, night sweats. Respiratory: No productive cough. Cardiac: As noted above. GI: Nomelena. : No dysuria. Musculoskeletal: No myalgias.PHYSICAL EXAMINATION: S/he is alert and in no distress.VITAL SIGNS: BP 152/52[left manual[ Pulse 74 Wt 175 lb 14.4 oz(79.8kg)SHEENT: Skin is warm and dry. No xanthelasmas appreciated. Pharynx isbenign. There is no oral cyanosis. Neck: supple. No adenopathy orthyroid enlargement. Chest: Clear to percussion and auscultation.Trachea is midline. Air entry is equal. There is no chest walltenderness. Cardiac: Regular rhythm. S1 and S2 are normal. PMI isnondisplaced. There is a 1/6 systolic ejection murmur. No click isheard. Carotids are brisk with soft bilateral bruits. JVP is less than10 cm. Abdomen: Soft and nontender. There are no pulsatile masses orbruits. No liver enlargement. Bowel sounds are active. Extremities: Noedema. Pulses are intact and symmetrical. No clubbing or cyanosis. Nofemoral bruits. Neurologic: Grossly normal motor and sensory. S/he isalert and oriented x4.Recent chest x-ray showed mild interstitial pulmonary edema with smalleffusions.Carotid Doppler examination showed bilateral external carotid stenosis.The internals showed no significant narrowing. There is evidence ofsubclavian disease bilaterally as well.EKG shows sinus rhythm. There is LVH.Most recent labs show worsening of renal insufficiency. There is evidenceof decompensated heart failure.Electronically Signed:Carroll Myrick 2017 11:10 [facility]:Jeremiah Moore MD [facility] CNOVon 01-14-2017 CNOV Office Visit (AGCARDWST) Emeka ZIMMER ([id number]) 1945 [facility] Time Provider Pzzjyugndn63/13/17 4:00 PM MARIO GARCIA AGCARDWST During your visit today, we recorded the following information about you: Pulse Blood pressure Weight Height 58/minute 140/58 84.5 kg 1.727 Constance Garcia MD 01/15/2017 5:42 PM SignedPERTINENT CARDIAC HISTORYHTNCVA 2004DMHyperlipidemiaCarotid disease - left stent 2003, right CEA 2016PAD with bilat iliac and LEFT renal artery peripheral interventionsASCVD with CABG 08/14/12 (Shira)SVTCRFADHERENCE TO GUIDELINESACE-I or ARB for HF with prior LVEFANDlt;40 (NQF 0081) - metASA or Plavix for ASHD (NQF 0067) - metBeta greg for ASHD with prior [place] or prior LVEFANDlt;40 (NQF 0070) - metBeta greg for HF with prior LVEFANDlt;40 (NQF 0083) - N/AACE-I or ARB for ASHD with DM or prior LVEFANDlt;40 (NQF 0066) - metStatin therapy for ASHD or FHL or DM - metBMI documented and plan if ANDgt;25 (NQ 0421) - lifestyle recommendation formTobacco use screening and referral ([facility] 0028) - lifestyle recommendation formRecommendation for whole food, plant based diet - lifestyle recommendation formCLINICAL IMPRESSION/PLAN:Ekta Zimmer is doing reasonably well but needs better control of his bloodpressure. I've advised him to increase his lisinopril to 30 milligrams dailyand to give us a call in the next week with an updated list of vital signs.I've encouraged him to remain active.I will see him in 6 months or as needed. If there is increased chest pain orshortness of breath, he has been advised to contact me.Written and verbal health teaching given to patient, patient verbalizesunderstanding and agrees with treatment plan.This note was generated using Cell-[employer]-Spot voice recognition system, and there may besome incorrect words, spellings, and punctuation that were not noted inchecking the note before saving.DIAGNOSIS FOR VISIT:ASHDHypertensionHISTORY OF PRESENT ILLNESSLamaryellen Zimmer returns for follow-up of multiple cardiac issues, as noted above.He reports stable exercise tolerance. He's had no recent chest discomfort. Hedenies orthopnea. He's had minimal ankle edema.He denies syncope, palpitations, TIAs, amaurosis and claudication.. Bloodpressures at home have been in the 140-160 systolic range.ALLERGIES:ALLERGIESNo Known AllergiesCURRENT OUTPATIENT MEDICATIONS:metoprolol tartrate, short acting, (LOPRESSOR) 25 mg tablet Take 1 tablet bymouth twice daily. Indications: 25 mg morning and 25 mg eveningatorvastatin (LIPITOR) 80 mg tablet Take 1 tablet by mouth once daily.doxazosin (CARDURA) 8 mg tablet Take 2 tablets by mouth daily at bedtime.ezetimibe (ZETIA) 10 mg tablet Take 1 tablet by mouth once daily.hydroCHLOROthiazide (HYDRODIURIL, ESIDRIX) 25 mg tablet Take 1 tablet by mouthonce daily.amLODIPine (NORVASC) 10 mg tablet Take 1 tablet by mouth once daily.lisinopril (ZESTRIL, PRINIVIL) 20 mg tablet Take 1 tablet by mouth once daily.dicyclomine (BENTYL) 10 mg capsule Take 1 capsule by mouth three times daily asneeded. Take before heading out to eat. You may take two, if needed.nitroglycerin sublingual 0.4 mg SL tablet Dissolve 1 tablet under the tongueevery 5 minutes as needed. FOR CHEST PAIN. IF NO RELIEF CALL 911MEDICATION, NON-DATABASE Take 2 tablets by mouth once daily. MULTIDOPHILUS FORDIARRHEA.ASPIRIN 81 MG TAB Take one(1) tablet daily.MULTIVITAMIN ORAL TAB Take one(1) tablet daily.PHYSICAL EXAMINATION:VITAL SIGNS: BP 140/58 Pulse 58 Ht 5' 8ANDquot; (1.73m) Wt 186 lb 4.8 oz(84.5kg) BMI 28.33 kg/(m2).Chest: Clear to percussion and auscultation. Trachea is midline. Air entry isequal. Cardiac: Regular rhythm. S1 and S2 are normal. PMI is nondisplaced.There is a 2/6 systolic ejection murmur and a soft S4 gallop.. Carotids arebrisk loud right carotid bruit. JVP is less than 10 cm. Abdomen: Soft andnontender. There are no pulsatile masses or bruits. No liver enlargement.Bowel sounds are active. Extremities: No edema. Pulses are diminished withbilateral femoral bruits.Recent labs reviewed. Renal function is mildly impaired, but stable. LDL was 64.Recent echocardiogram was reviewed. Left ventricular function is normal. Thereis mild aortic thickening without stenosis.Electronically Signed:Mario Garcia MDJanuary 14, 2017 1:20 PMCC: Bob Ceron MD 01/14/2017 1:23 PM AddendumIncrease lisinopril to 30 mg dailyCall us with BP readings in 2 wksLIFESTYLE CHANGEA healthy lifestyle is the most important component of your overall treatmentplan. Please give serious thought to the following areas and commit to makinglong term changes.EAT A WHOLE FOOD, PLANT BASED DIETThe nutrition your body gets is more important than the medicine you take.What matters most is the overall way you eat. We encourage you to minimize theuse of animal products (which include dairy and all meats except fatty fish)and use whole, unprocessed plant foods to provide your protein, vitamins andother nutrients. We have a lot of information to share with you on this topic. We also hold Shared Medical Appointments, where you can come visit with in the company of other patients and spend over an hour talking aboutthe challenges of changing the way you eat. This is not a ANDquot;dietANDquot;.It is a way of life that you will keep with you.EXERCISE REGULARLYIt is not important to spend hours in the gym, lifting weights and perspiringheavily. A total of 2-3 hours per week of aerobic (causing you to bemoderately short of breath) exercise is sufficient to improve your health.Talk to us before you begin a new exercise program, if you have heart diseaseor experience shortness of breath or chest pain.REDUCE STRESSChronic emotional and physical stress leads to disease. Ways of reducingstress include meditation, visualization, prayer, yoga and other forms ofrelaxation therapy. Consistency is the marshall. Find a technique that works foryou and do it every day.CULTIVATE RELATIONSHIPSLoneliness and isolation have a major negative impact on health. Seek outothers who can love, care for and nurture you. Avoid hurtful relationships.MAINTAIN IDEAL BODY WEIGHTThe best way to do this is to do all the things above. Our bodies naturallyfind the right weight if we keep moving and feed ourselves the right food. Ifyour BMI is greater than 25, we strongly recommend a referral to a weightmanagement program. Please speak to us or your family physician aboutavailable programs.AVOID NICOTINE IN ALL FORMSThis includes all tobacco products, whether chewed, smoked, vaped, or rubbed onthe skin. Smoking cessation programs, which can make use of tobaccosubstitutes, medications to suppress cravings and behavior management, areavailable. Please contact your family physician about programs in your area.Referring Provider: MARIO GARCIA [[id number]]Allergies As of Date: 01/14/2017(No Known Allergies)Date Reviewed: 01/14/2017Reviewed by: Mikayla Escalera - Fully AssessedReason for Visit: Follow Up [171]Primary Visit Diagnosis:Hypertension, essential [I10] Other Visit Diagnoses:ASHD (arteriosclerotic heart disease) [I25.10] Hyperkalemia [E87.5]Order(s):BASIC METABOLIC PNL [SQBMP] Order #: [id number] FUTURE lisinopril 30 mg tabletTake 1 tablet by mouth once daily.Disp: 90 tabletRfl: 3Prescriptions as of 01/14/2017 Sig: LISINOPRIL 30 MG TABLET Take 1 tablet by mouth once d* METOPROLOL TARTRATE 25 MG TAB* Take 1 tablet by mouth twice * ATORVASTATIN 80 MG TABLET Take 1 tablet by mouth once d* DOXAZOSIN 8 MG TABLET Take 2 tablets by mouth daily* EZETIMIBE 10 MG TABLET Take 1 tablet by mouth once d* HYDROCHLOROTHIAZIDE 25 MG TAB* Take 1 tablet by mouth once d* AMLODIPINE 10 MG TABLET Take 1 tablet by mouth once d* DICYCLOMINE 10 MG CAPSULE Take 1 capsule by mouth three* NITROGLYCERIN 0.4 MG SUBLINGU* Dissolve 1 tablet under the t* * MEDICATION, NON-DATABASE Take 2 tablets by mouth once * * ASPIRIN 81 MG TABLET Take one(1) tablet daily. * MULTIVITAMIN TABLET Take one(1) tablet daily.Problem List As Of Date 01/14/2017 Noted Resolved CAROTID ART OCCL-CEREBRAL INFARCT [I63.239] INVALID FOR* Essential Hypertension, Benign [I10] 07/20/2009 CVA [I67.89] 06/28/2006 CAROTID ART OCCL-NO INFARCT [I65.29] 09/18/2005 More... Hypercholesterolemia [E78.00] RENAL ARTERY ATHEROSCLEROSIS [I70.1] Atherosclerosis of cachil dehe artery of extremity (*INVALID FOR* Personal history of unspecified circulatory dis*INVALID FOR*10/13/2015 More... CHRONIC KIDNEY DISEASE, STAGE I [N18.1] INVALID FOR*11/13/2007 IMPAIRED FASTING GLUCOSE [R73.01] INVALID FOR* Chronic kidney disease, stage III (moderate) [N*INVALID FOR* More... HBP (high blood pressure) [I10] INVALID FOR*10/13/2015 More... Diarrhea [R19.7] INVALID FOR*10/13/2015 Ed (Erectile Dysfunction) [N52.9] INVALID FOR* Inguinal hernia [K40.90] INVALID FOR* Unilat ing hernia [K40.90] INVALID FOR* Peripheral vascular disease [I73.9] CAD (coronary atherosclerotic disease) [I25.10] Atrial fib/flutter, transient More... Inguinal pain [R10.30] INVALID FOR*10/13/2015 SVT (supraventricular tachycardia) [I47.1] INVALID FOR* Essential hypertension with goal blood pressure*INVALID FOR* Atherosclerosis of cachil dehe coronary artery of na*INVALID FOR* Other instructions from your clinician: Increase lisinopril to 30 mg daily Call us with BP readings in 2 wks LIFESTYLE CHANGE A healthy lifestyle is the most important component of your overall treatment plan. Please give serious thought to the following areas and commit to making product management internship changes. EAT A WHOLE FOOD, PLANT BASED DIET The nutrition your body gets is more important than the medicine you take. What matters most is the overall way you eat. We encourage you to minimize the use of animal products (which include dairy and all meats except fatty fish) and use whole, unprocessed plant foods to provide your protein, vitamins and other nutrients. We have a lot of information to share with you on this topic. We also hold Shared Medical Appointments, where you can come visit with Dr. Garcia in the company of other patients and spend over an hour talking about the challenges of changing the way you eat. This is not a diet . It is a way of life that you will keep with you. EXERCISE REGULARLY It is not important to spend hours in the gym, lifting weights and perspiring heavily. A total of 2-3 hours per week of aerobic (causing you to be moderately short of breath) exercise is sufficient to improve your health. Talk to us before you begin a new exercise program, if you have heart disease or experience shortness of breath or chest pain. REDUCE STRESS Chronic emotional and physical stress leads to disease. Ways of reducing stress include meditation, visualization, prayer, yoga and other forms of relaxation therapy. Consistency is the marshall. Find a technique that works for you and do it every day. CULTIVATE RELATIONSHIPS Loneliness and isolation have a major negative impact on health. Seek out others who can love, care for and nurture you. Avoid hurtful relationships. MAINTAIN IDEAL BODY WEIGHT The best way to do this is to do all the things above. Our bodies naturally find the right weight if we keep moving and feed ourselves the right food. If your BMI is greater than 25, we strongly recommend a referral to a weight management program. Please speak to us or your family physician about available programs. AVOID NICOTINE IN ALL FORMS This includes all tobacco products, whether chewed, smoked, vaped, or rubbed on the skin. Smoking cessation programs, which can make use of tobacco substitutes, medications to suppress cravings and behavior management, are available. Please contact your family physician about programs in your area.Prescriptions ordered this encounter Disp Refills Start End LISINOPRIL 30 MG TABLET 90 t* 3 01/14/2017 Route: ORAL Sig: Take 1 tablet by mouth once daily.Medications Discontinued During This Encounter lisinopril (ZESTRIL, PRINIVIL) 20 mg* 90 t* 3 02/19/2016 01/14/2017 Route: ORAL Sig: Take 1 tablet by mouth once daily. Disc: Reason for discontinue is not on file. Status:Closed by MARIO GARCIA MD on 01/15/17 [facility] PROGRESSon 01-14-2017 PROGRESS HNO ID: [id number] thor: Mario Lancaster: (none)Author Type: PhysicianType: Progress NotesFiled: 01/15/2017 5:42 PMNote Text:PERTINENT CARDIAC HISTORYHTNCVA 2004DMHyperlipidemiaCarotid disease - left stent 2003, right CEA 2016PAD with bilat iliac and LEFT renal artery peripheral interventionsASCVD with CABG 08/14/12 (Shira)SVTCRFADHERENCE TO GUIDELINESACE-I or ARB for HF with prior LVEF<40 (NQF 0081) - metASA or Plavix for ASHD (NQF 0067) - metBeta greg for ASHD with prior [place] or prior LVEF<40 (NQF 0070) - metBeta greg for HF with prior LVEF<40 (NQF 0083) - N/AACE-I or ARB for ASHD with DM or prior LVEF<40 (NQF 0066) - metStatin therapy for ASHD or FHL or DM - metBMI documented and plan if >25 (NQF 0421) - lifestyle recommendation formTobacco use screening and referral (NQF 0028) - lifestyle recommendationformRecommendation for whole food, plant based diet - lifestyle recommendationformCLINICAL IMPRESSION/PLAN:Ekta Zimmer is doing reasonably well but needs better control of hisblood pressure. I've advised him to increase his lisinopril to 30milligrams daily and to give us a call in the next week with an updatedlist of vital signs.I've encouraged him to remain active.I will see him in 6 months or as needed. If there is increased chest painor shortness of breath, he has been advised to contact me.Written and verbal health teaching given to patient, patient verbalizesunderstanding and agrees with treatment plan.This note was generated using Cell-[employer]Spot voice recognition system, and theremay be some incorrect words, spellings, and punctuation that were notnoted in checking the note before saving.DIAGNOSIS FOR VISIT:ASHDHypertensionHISTORY OF PRESENT ILLNESSLarry Mariia Zimmer returns for follow-up of multiple cardiac issues, as notedabove.He reports stable exercise tolerance. He's had no recent chest discomfort.He denies orthopnea. He's had minimal ankle edema.He denies syncope, palpitations, TIAs, amaurosis and claudication.. Bloodpressures at home have been in the 140-160 systolic range.ALLERGIES:ALLERGIESNo Known AllergiesCURRENT OUTPATIENT MEDICATIONS:metoprolol tartrate, short acting, (LOPRESSOR) 25 mg tablet Take 1 tabletby mouth twice daily. Indications: 25 mg morning and 25 mg eveningatorvastatin (LIPITOR) 80 mg tablet Take 1 tablet by mouth once daily.doxazosin (CARDURA) 8 mg tablet Take 2 tablets by mouth daily at bedtime.ezetimibe (ZETIA) 10 mg tablet Take 1 tablet by mouth once daily.hydroCHLOROthiazide (HYDRODIURIL, ESIDRIX) 25 mg tablet Take 1 tablet bymouth once daily.amLODIPine (NORVASC) 10 mg tablet Take 1 tablet by mouth once daily.lisinopril (ZESTRIL, PRINIVIL) 20 mg tablet Take 1 tablet by mouth oncedaily.dicyclomine (BENTYL) 10 mg capsule Take 1 capsule by mouth three timesdaily as needed. Take before heading out to eat. You may take two, ifneeded.nitroglycerin sublingual 0.4 mg SL tablet Dissolve 1 tablet under thetongue every 5 minutes as needed. FOR CHEST PAIN. IF NO RELIEF CALL 911MEDICATION, NON-DATABASE Take 2 tablets by mouth once daily. MULTIDOPHILUSFOR DIARRHEA.ASPIRIN 81 MG TAB Take one(1) tablet daily.MULTIVITAMIN ORAL TAB Take one(1) tablet daily.PHYSICAL EXAMINATION:VITAL SIGNS: BP 140/58 Pulse 58 Ht 5' 8 (1.73m) Wt 186 lb 4.8 oz(84.5kg) BMI 28.33 kg/(m2).Chest: Clear to percussion and auscultation. Trachea is midline. Airentry is equal. Cardiac: Regular rhythm. S1 and S2 are normal. PMI isnondisplaced. There is a 2/6 systolic ejection murmur and a soft D7otgbzm.. Carotids are brisk loud right carotid bruit. JVP is less than10 cm. Abdomen: Soft and nontender. There are no pulsatile masses orbruits. No liver enlargement. Bowel sounds are active. Extremities: Noedema. Pulses are diminished with bilateral femoral bruits.Recent labs reviewed. Renal function is mildly impaired, but stable. LDLwas 64.Recent echocardiogram was reviewed. Left ventricular function is normal.There is mild aortic thickening without stenosis.Electronically Signed:Mario Garcia MDJanuary 14, 2017 1:20 PMCC: Jeremiah Moore MD [facility] OBSOLETEon 12-19-2016 OBSOLETE Refill (AGCARDWST) Emeka ZIMMER ([id number]) 1945 [facility] Time Provider Fyjenghpxw87/18/17 MARIO GARCIA During your visit today, we recorded the following information about you:Tye aPrra RN, RN 12/19/2016 4:33 PM SignedPatient phones requesting refills as follows:Pending Prescriptions Disp Refills ATORVASTATIN 80 MG TABLET 90 tablet 3 Sig: Take 1 tablet by mouth once daily. ENRIKE: No Please review and advise.Max Giron has been identified by name and date of : YesRX INSTRUCTIONS:Patient aware RX will be sent to pharmacy. No need to notify patient.Dacia Giron MD 12/19/2016 4:35 PM SignedThe following approved medication requests have been transmitted electronically.Signed Prescriptions Disp Refills atorvastatin (LIPITOR) 80 mg tablet 90 tablet 3 Sig: Take 1 tablet by mouth once daily. ENRIKE: No Authorizing Provider: MARIO GARCIA MDAllergies As of Date: 12/19/2016(No Known Allergies)Date Reviewed: 10/25/2016Reviewed by: Jackie Anne Ma - Fully AssessedReason for Visit: Refill Request [94]Order(s):atorvastatin (LIPITOR) 80 mg tabletTake 1 tablet by mouth once daily.Disp: 90 tabletRfl: 3Prescriptions as of 12/19/2016 Sig: ATORVASTATIN 80 MG TABLET Take 1 tablet by mouth once d* DOXAZOSIN 8 MG TABLET Take 2 tablets by mouth daily* EZETIMIBE 10 MG TABLET Take 1 tablet by mouth once d* HYDROCHLOROTHIAZIDE 25 MG TAB* Take 1 tablet by mouth once d* AMLODIPINE 10 MG TABLET Take 1 tablet by mouth once d* LISINOPRIL 20 MG TABLET Take 1 tablet by mouth once d* METOPROLOL TARTRATE 25 MG TAB* Take 1 tablet by mouth twice * DICYCLOMINE 10 MG CAPSULE Take 1 capsule by mouth three* NITROGLYCERIN 0.4 MG SUBLINGU* Dissolve 1 tablet under the t* * MEDICATION, NON-DATABASE Take 2 tablets by mouth once * * ASPIRIN 81 MG TABLET Take one(1) tablet daily. * MULTIVITAMIN TABLET Take one(1) tablet daily.Problem List As Of Date 12/19/2016 Noted Resolved CAROTID ART OCCL-CEREBRAL INFARCT [I63.239] INVALID FOR* Essential Hypertension, Benign [I10] 07/20/2009 CVA [I67.89] 06/28/2006 CAROTID ART OCCL-NO INFARCT [I65.29] 09/18/2005 More... Hypercholesterolemia [E78.00] RENAL ARTERY ATHEROSCLEROSIS [I70.1] Atherosclerosis of cachil dehe artery of extremity (*INVALID FOR* Personal history of unspecified circulatory dis*INVALID FOR*10/13/2015 More... CHRONIC KIDNEY DISEASE, STAGE I [N18.1] INVALID FOR*11/13/2007 IMPAIRED FASTING GLUCOSE [R73.01] INVALID FOR* Chronic kidney disease, stage III (moderate) [N*INVALID FOR* More... HBP (high blood pressure) [I10] INVALID FOR*10/13/2015 More... Diarrhea [R19.7] INVALID FOR*10/13/2015 Ed (Erectile Dysfunction) [N52.9] INVALID FOR* Inguinal hernia [K40.90] INVALID FOR* Unilat ing hernia [K40.90] INVALID FOR* Peripheral vascular disease [I73.9] CAD (coronary atherosclerotic disease) [I25.10] Atrial fib/flutter, transient More... Inguinal pain [R10.30] INVALID FOR*10/13/2015 SVT (supraventricular tachycardia) [I47.1] INVALID FOR* Essential hypertension with goal blood pressure*INVALID FOR* Atherosclerosis of cachil dehe coronary artery of na*INVALID FOR*Prescriptions ordered this encounter Disp Refills Start End ATORVASTATIN 80 MG TABLET 90 t* 3 12/19/2016 Route: ORAL Sig: Take 1 tablet by mouth once daily.Medications Discontinued During This Encounter atorvastatin (LIPITOR) 80 mg tablet 90 t* 3 12/22/2015 12/19/2016 Route: ORAL Sig: Take 1 tablet by mouth once daily. Disc: Reason for discontinue is not on file. Status:Closed by MIKAYLA ESCALERA MA on 12/19/16 Normal [facility] Vital Signs Date Time Vital Sign Value Performing Clinician Facility 10-16-2023 13:41-0400 Diastolic blood pressure 57 mm[Hg] Timi Almaraz MD Work Phone: [facility] Comment on above: Repeat BP 10-16-2023 13:41-0400 Heart rate 51 /min Timi Almaraz MD Work Phone: [facility] 10-16-2023 13:41-0400 Systolic blood pressure 150 mm[Hg] Timi Almaraz MD Work Phone: [facility] Comment on above: Repeat BP 10-16-2023 13:21-0400 Body mass index (BMI) [Ratio] 22.22 kg/m2 Timi Almaraz MD Work Phone: [facility] 10-16-2023 13:21-0400 Body weight 66.3 kg Timi Almaraz MD Work Phone: [facility] 10-16-2023 13:21-0400 SaO2% (BldA) [Mass fraction] 98 % Timi Almaraz MD Work Phone: [facility] Comment on above: 3L 02-05-2023 14:08-0500 Body temperature 98.49 [degF] Brittaney Glennie POLITICAL SCIENTIST.TURPENTINE FARMER Work Phone: [facility] 02-05-2023 14:08-0500 Body weight 69.85 kg Brittaney Glennie POLITICAL SCIENTIST.TURPENTINE FARMER Work Phone: [facility] 02-05-2023 14:08-0500 Diastolic blood pressure 52 mm[Hg] Brittaney Glennie POLITICAL SCIENTIST.TURPENTINE FARMER Work Phone: [facility] 02-05-2023 14:08-0500 Heart rate 65 /min Brittaney Glennie POLITICAL SCIENTIST.TURPENTINE FARMER Work Phone: [facility] 02-05-2023 14:08-0500 Respiratory rate 16 /min Brittaney Glennie POLITICAL SCIENTIST.TURPENTINE FARMER Work Phone: [facility] 02-05-2023 14:08-0500 SaO2% (BldA) [Mass fraction] 92 % Brittaney Glennie POLITICAL SCIENTIST.TURPENTINE FARMER Work Phone: [facility] 02-05-2023 14:08-0500 Systolic blood pressure 153 mm[Hg] Brittaney Glennie POLITICAL SCIENTIST.TURPENTINE FARMER Work Phone: [facility] 10-31-2022 15:02-0400 Body temperature 98.4 [degF] Brittaney Glennie POLITICAL SCIENTIST.TURPENTINE FARMER Work Phone: [facility] 10-31-2022 15:02-0400 Body weight 69.3 kg Brittaney Glennie POLITICAL SCIENTIST.TURPENTINE FARMER Work Phone: [facility] 10-31-2022 15:02-0400 Diastolic blood pressure 41 mm[Hg] Brittaney Glennie POLITICAL SCIENTIST.TURPENTINE FARMER Work Phone: [facility] 10-31-2022 15:02-0400 Heart rate 58 /min Brittaney Glennie POLITICAL SCIENTIST.TURPENTINE FARMER Work Phone: [facility] 10-31-2022 15:02-0400 Respiratory rate 16 /min Brittaney Villalba POLITICAL SCIENTIST.TURPENTINE FARMER Work Phone: [facility] 10-31-2022 15:02-0400 SaO2% (BldA) [Mass fraction] 99 % Brittaney Glennie POLITICAL SCIENTIST.TURPENTINE FARMER Work Phone: [facility] 10-31-2022 15:02-0400 Systolic blood pressure 173 mm[Hg] Brittaney Glennie POLITICAL SCIENTIST.TURPENTINE FARMER Work Phone: [facility] Encounters Encounter Date Encounter Type Care Provider Facility Start: 12-23-2023 End: 12-23-2023 Telephone encounter [facility] Comment on above: Medication Authoriza tion Start: 11-21-2023 End: 11-21-2023 Telephone encounter [facility] Comment on above: Medication Authoriza tion Start: 11-06-2023 ambulatory NAVA DIAZ [facility] Start: 11-05-2023 End: 11-05-2023 ambulatory NAVA DIAZ [facility] Start: 10-29-2023 End: 10-29-2023 ambulatory NAVA DIAZ [facility] Start: 10-21-2023 End: 10-21-2023 ambulatory NAVA DIAZ [facility] Start: 10-17-2023 Telephone encounter Yocasta (Pss) [facility] Comment on above: Medication Authoriza tion Start: 10-16-2023 End: 10-[facility] Start: 10-16-2023 End: 10-16-2023 [facility] Start: 10-16-2023 End: 10-16-2023 Patient encounter procedure Timi Almaraz MD Work Phone: Pulmonary Medicine Comment on above: IPF (idiopathic pulm onary fibrosis) (HCC) (Primary Dx) Start: 10-16-2023 End: 10-16-2023 ambulatory OLMAN CHANDNA [facility] Comment on above: Spirometry Start: 10-16-2023 End: 10-16-2023 Patient encounter procedure Pulm Fct Lab 3 Work Phone: Pulmonary Medicine [facility] Start: 10-16-2023 End: 10-16-2023 ambulatory OLMANAMOR MANCINI Facility:[facility] Start: 10-16-2023 End: 10-16-2023 Subsequent hospital visit by physician [facility] Rajwinder (I-Stat) CT Scan [facility] Comment on above: Interstitial pulmona ry disease (HCC) [J84.9] Start: 10-14-2023 End: 10-14-2023 ambulatory NAVA DIAZ [facility] Start: 10-10-2023 Telephone encounter Timi Almaraz MD Work Phone: Pulmonary Medicine Comment on above: Insurance Authorizat ion Start: 10-07-2023 End: 10-07-2023 ambulatory NAVA DIAZ [facility] Start: 09-30-2023 End: 09-30-2023 ambulatory NAVA DIAZ [facility] Start: 09-23-2023 End: 09-23-2023 ambulatory NAVA DIAZ [facility] Start: 09-16-2023 End: 09-16-2023 ambulatory NAVA DIAZ [facility] Start: 09-09-2023 End: 09-09-2023 ambulatory NAVA DIAZ [facility] Start: 09-02-2023 End: 09-02-2023 ambulatory NAVA DIAZ [facility] Start: 08-20-2023 End: 08-20-2023 ambulatory NAVA DIAZ [facility] Start: 08-12-2023 End: 08-12-2023 ambulatory NAVA DIAZ [facility] Start: 08-05-2023 End: 08-05-2023 ambulatory NAVA DIAZ [facility] Start: 07-30-2023 End: 07-30-2023 ambulatory NAVA DIAZ [facility] Start: 07-22-2023 End: 07-22-2023 ambulatory NAVA DIAZ [facility] Start: 07-15-2023 End: 07-15-2023 ambulatory NAVA DIAZ [facility] Start: 07-08-2023 End: 07-08-2023 ambulatory NAVA DIAZ [facility] Start: 07-01-2023 End: 07-01-2023 ambulatory [facility]AVA DIAZ [facility] Start: 06-24-2023 End: 06-24-2023 ambulatory NAVA DIAZ [facility] Start: 06-14-2023 End: 06-14-2023 ambulatory NAVA DIAZ [facility] Start: 2023 End: 2023 ambulatory NAVA DIAZ [facility] Start: 05-30-2023 End: 05-30-2023 ambulatory NAVA DIAZ [facility] Start: 05-24-2023 End: 05-24-2023 ambulatory NAVA DIAZ [facility] Start: 05-17-2023 End: 05-17-2023 ambulatory NAVA DIAZ [facility] Start: 05-10-2023 End: 05-10-2023 ambulatory NAVA DIAZ [facility] Start: 05-02-2023 End: 05-02-2023 ambulatory NAVA DIAZ [facility] Start: 04-26-2023 Telephone encounter Timi Almaraz MD Work Phone: Pulmonary Medicine Comment on above: Oxygen SWO Start: 04-26-2023 End: 04-26-2023 ambulatory NAVA DIAZ [facility] Start: 04-19-2023 End: 04-19-2023 ambulatory NAVA DIAZ [facility] Start: 04-12-2023 End: 04-12-2023 ambulatory NAVA DIAZ [facility] Start: 04-05-2023 End: 04-05-2023 ambulatory NAVA DIAZ [facility] Start: 04-03-2023 End: 04-03-2023 ambulatory BRITTANEY VILLALBA Facility:[facility] Start: 03-29-2023 End: 03-29-2023 ambulatory NAVA DIAZ [facility] Start: 03-22-2023 End: 03-22-2023 ambulatory NAAV DIAZ [facility] Start: 03-15-2023 End: 03-15-2023 ambulatory NAVA DIAZ [facility] Start: 03-08-2023 End: 03-08-2023 ambulatory NAVA DIAZ [facility] Start: 03-01-2023 End: 03-01-2023 ambulatory NAVA DIAZ [facility] Start: 02-22-2023 End: 02-22-2023 ambulatory NAVA DIAZ [facility] Start: 02-14-2023 End: 02-14-2023 ambulatory NAVA DIAZ [facility] Start: 02-08-2023 End: 02-08-2023 ambulatory NAVA DIAZ [facility] Start: 02-05-2023 End: 02-05-2023 ambulatory BRITTANEYFLO VILLALBA Facility:[facility] Start: 02-05-2023 End: 02-05-2023 Patient encounter procedure Brittaney Villalba APRN.TURPENTINE FARMER Work Phone: Pulmonary Medicine Comment on above: IPF (idiopathic pulm onary fibrosis) (HCC) (Primary Dx); Chronic hypoxemic respiratory failure (HCC); High risk medication use; Pulmonary HTN (HCC) Start: 02-05-2023 End: 02-05-2023 ambulatory BRITTANEY VILLALBA Pulmonary Medicine Comment on above: Spirometry Start: 02-05-2023 End: 02-05-2023 Patient encounter procedure Pulm Fct Lab 2 - A110 Work Phone: [facility] Start: 02-01-2023 End: 02-01-2023 ambulatory NAVA DIAZ [facility] Start: 01-25-2023 End: 01-25-2023 ambulatory NAVA DIAZ [facility] Start: 01-18-2023 End: 01-18-2023 ambulatory NAVA DIAZ [facility] Start: 01-11-2023 End: 01-11-2023 ambulatory NAVA DIAZ [facility] Start: 01-04-2023 End: 01-04-2023 ambulatory NAVA DIAZ [facility] Start: 12-28-2022 End: 12-28-2022 ambulatory NAVA DIAZ [facility] Start: 12-21-2022 End: 12-21-2022 ambulatory NAVA DIAZ [facility] Start: 12-17-2022 End: 12-17-2022 ambulatory Brittaney Villalba APRN.TURPENTINE FARMER Work Phone: Pulmonary Medicine Comment on above: IPF (idiopathic pulm onary fibrosis) (HCC) (Primary Dx); Chronic hypoxemic respiratory failure (HCC); High risk medication use Start: 12-17-2022 End: 12-17-2022 Telemedicine consultation with patient Brittaney Villalba APRKRUNAL Work Phone: [facility] Start: 12-14-2022 End: 12-14-2022 ambulatory NAVA DIAZ [facility] Start: 12-07-2022 End: 12-07-2022 [facility] Start: 11-30-2022 End: 11-30-2022 [facility] Start: 11-23-2022 End: 11-23-2022 [facility] Start: 11-16-2022 End: 11-16-2022 ambulatory USHA COSBY [facility] Start: 11-14-2022 Telephone encounter Yocasta (Pss) [facility] [place] Comment on above: Medication Authoriza tion Start: 11-01-2022 Telephone encounter Yocasta (Pss) [facility] [place] Comment on above: Medication Authoriza tion IPF (idiopathic pulm onary fibrosis) (HCC) (Primary Dx) Start: 10-31-2022 End: 10-31-2022 Office outpatient visit 40 minutes Brittaney Everettzuleyka GRIFFIN Work Phone: Pulmonary Medicine Comment on above: IPF (idiopathic pulm onary fibrosis) (HCC) (Primary Dx); Chronic hypoxemic respiratory failure (HCC); High risk medication use; SOB (shortness of breath); Pulmonary HTN ([facility]) Start: 10-31-2022 End: 10-31-2022 Subsequent hospital visit by physician Xr Chest Main A21 Radiology Comment on above: ILD (interstitial kimberlee ng disease) ([facility]) [J84.9] Start: 10-31-2022 End: 10-31-2022 ambulatory Pulm A110 Work Phone: Pulmonary Medicine Comment on above: Spirometry Start: 10-31-2022 End: 10-31-2022 Patient encounter procedure Pulm Fct Lab 1 - A110 Work Phone: [facility] Start: 09-13-2022 ambulatory Timi Almaraz MD Work Phone: Pulmonary Medicine Comment on above: Inogen G5 Start: 09-12-2022 Telephone encounter Rajendra hurtado MARKETING AND COMMUNICATIONS OFFICER Work Phone: Pulmonary Medicine Comment on above: Oxygen Start: 09-11-2022 End: 09-11-2022 ambulatory Tracie Wilkerson MD Work Phone: Pulmonary Lab Comment on above: Spirometry IPF (idiopathic pulm onary fibrosis) (HCC) (Primary Dx) Start: 09-11-2022 End: 09-11-2022 Patient encounter procedure Pulm Lab [facility] Work Phone: [facility] Start: 08-02-2022 End: 08-02-2022 ambulatory Pulm Stro Work Phone: Pulmonary Lab Comment on above: Spirometry Start: 08-02-2022 End: 08-02-2022 Patient encounter procedure Pulm Lab [facility] Work Phone: [facility] Start: 05-22-2022 Telephone encounter Tammy Wei RN Pulmonary Medicine Comment on above: New ILD Start: 10-15-2017 Ambulatory MARIO GARCIA Facility :[facility] Start: 07-15-2017 End: 07-15-2017 Ambulatory MARIO [facility] Start: 01-14-2017 End: 01-14-[address] [facility] [place] [facility] Procedures Date Procedure Procedure Detail Performing Clinician Start: 10-16-2023 Brncdilat rspse spmt ry pre&post-brncdilat admludmila Mancini MD Work Phone: Start: 10-16-2023 Ct thorax w/o contra st material Olman Mancini MD Work Phone: Start: 04-19-2023 PSA screening RASHMI NI Comment on above: Performed By: #### [id number] #### [facility],[address] [place] [id number] Start: 02-05-2023 Brncdilat rspse spmt ry pre&post-brncdilat admn Brittaney Villalba POLITICAL SCIENTIST.TURPENTINE FARMER Work Phone: Start: 10-31-2022 Radiologic exam ches t 2 views Timi Almaraz MD Work Phone: Start: 10-31-2022 Co diffusing capacity M myron Almaraz MD Work Phone: Start: 09-11-2022 Noninvasive ear/puls e oximetry multiple deter Timi Almaraz MD Work Phone: Start: 08-02-2022 Noninvasive ear/puls e oximetry multiple deter Timi Almaraz MD Work Phone: Plan of Treatment Date Care Activity Detail Author Start: 04-29-2024 End: 04-29-2024 Patient encounter procedure 04/29/2024 12:00 PM EST Office Visit Pulmonary Medicine [address] [place] [id number] Timi Morgan MD [address] [place] [id number] 6 MONTHS FU Pulmonary Medicine Comment on above: 6 MONTHS FU Start: 04-29-2024 End: 04-29-2024 ambulatory Pulmonary Medicine [facility] Comment on above: 6 MONTH FU Start: 11-03-2023 Covid-19 Vaccine ( season) Covid-19 Vaccine ( season) [facility] Start: 11-03-2023 Covid-19 Vaccine ( season) Covid-19 Vaccine ( season) [facility] Start: 09-01-2024 Influenza vaccination Influenza Vacc ine (#1) [facility] Start: 10-16-2023 End: 10-16-2023 Patient encounter procedure 10/16/2023 1:30 PM EDT Office Visit Pulmonary Medicine [address] [place] [address] Timi Morgan MD [address] [place] [address] 6 Month Follow Up Pulmonary Medicine Comment on above: 6 Month Follow Up Start: 10-16-2023 End: 10-16-2023 ambulatory Pulmonary Medicine [facility] Comment on above: Spoke to pt, pt awar e of location change, //AMD //AMD Start: 10-16-2023 End: 10-16-2023 Patient encounter procedure 10/16/2023 11:[address] Scan [facility] [address] [place], [place] [id number] Interstitial pulmonary disease (HCC) [J84.9] CT Scan [facility] Comment on above: Interstitial pulmona ry disease (HCC) [J84.9] Start: 03-04-2023 Advance Directive Discussion Advance Directive Discussion [facility] Start: 03-04-2023 Depression Assessment Depression Ass essment [facility] Start: 02-15-2023 COVID-19 VACCINE (4 - Pfizer series) COVID-19 VACCINE (4 - Pfizer series) [facility] Start: 12-11-2022 Covid-19 Vaccine ( season) Covid-19 Vaccine ( season) [facility] Start: 11-02-2022 Influenza vaccination C [facility] Start: 11-01-2022 End: 01-01-2023 CBC W Auto Differential panel - Blood CBC + DIFF Lab Routine IPF (idiopathic pulmonary fibrosis) (HCC) High risk medication use Expected: 11/01/2022, Expires: 01/01/2023 [facility] Work Phone: Comment on above: Expected: 11/01/2022 , Expires: 01/01/2023 Start: 11-01-2022 End: 01-01-2023 Comprehensive metabolic 2000 panel - Serum or Plasma COMP METABOLIC PANEL Lab Routine IPF (idiopathic pulmonary fibrosis) (HCC) High risk medication use Expected: 11/01/2022, Expires: 01/01/2023 [facility] Work Phone: Comment on above: Expected: 11/01/2022 , Expires: 01/01/2023 Start: 11-01-2022 End: 01-01-2023 Natriuretic peptide.B prohormone N-Terminal [Mass/volume] in Serum or Plasma NT PRO BNP Lab Routine SOB (shortness of breath) Expected: 11/01/2022, Expires: 01/01/2023 [facility] Work Phone: Comment on above: Expected: 11/01/2022 , Expires: 01/01/2023 Start: 10-02-2022 DIABETES SCREEN DIABETES SCREEN [facility] Start: 10-02-2022 Diabetes Screening Diabetes Screenin g [facility] Start: 03-04-2022 ADVANCE DIRECTIVE DISCUSSION ADVANCE DIRECTIVE DISCUSSION [facility] Start: 03-04-2022 DEPRESSION ASSESSMENT DEPRESSION ASS ESSMENT [facility] Start: 10-22-2020 ANNUAL PCP TEAM [employer] [place] DISEASE VISIT ANNUAL PCP TEAM CHRONIC DISEASE VISIT [facility] Start: 10-02-2020 Complete blood count Hemoglobin/Josh tocrit [facility] Start: 10-02-2020 Creatinine measurement Serum Creatin ine [facility] Start: 10-02-2020 HEMOGLOBIN/HEMATOCRIT HEMOGLOBIN/HEM ATOCRIT [facility] Start: 10-02-2020 SERUM CREATININE SERUM CREATININE Cl [facility] Start: 07-15-2020 COVID-19 VACCINE (3 - Booster for Pfizer series) COVID-19 VACCINE (3 - Booster for Pfizer series) [facility] Start: 07-15-2020 COVID-19 VACCINE (3 - Pfizer series) COVID-19 VACCINE (3 - Pfizer series) [facility] Start: 09-18-2019 Hepatitis B surface antibody level LDL CHOLESTEROL [facility] Start: 06-17-2015 SHINGRIX VACCINE (2 of 3) SHINGRIX VACCINE (2 of 3) [facility] Start: 01-02-2014 Urine microalbumin profile [facility] Start: 06-08-1963 Anxiety Screening Anxiety Screening [facility] Start: 06-08-1963 BP CONTROLLED (<130/80) BP CONTROLLE D (<130/80) [facility] Start: 06-08-1963 Depression Screening Depression Scre ening [facility] Start: 1945 COVID-19 VACCINE (#1) COVID-19 VACCI NE (#1) [facility] End: 10-31-2023 Hepatic function 2000 panel - Serum or Plasma HEPATIC FUNCTION PNL Lab Routine High risk medication use Once per month for 12 Occurrences starting 10/31/2022 until 10/31/2023 [facility] Work Phone: Comment on above: Once per month for 1 2 Occurrences starting 10/31/2022 until 10/31/2023 End: 10-15-2024 Hepatic function 2000 panel - Serum or Plasma HEPATIC FUNCTION PNL Lab Routine IPF (idiopathic pulmonary fibrosis) (HCC) Every 3 months for 10 Occurrences starting 10/16/2023 until 10/15/2024 [facility] Work Phone: Comment on above: Every 3 months for 1 0 Occurrences starting 10/16/2023 until 10/15/2024 Hepatic function 200 0 panel - Serum or Plasma HEPATIC FUNCTION PNL Lab Routine IPF (idiopathic pulmonary fibrosis) (HCC) 10/16/2023 2:44 PM EDT [facility] End: 06-21-2023 LUNG DIFFUSION CAPACITY (DLCO) LUNG DIFFUSION CAPACITY (DLCO) PFT Routine ILD (interstitial lung disease) (HCC) 1 Occurrences starting 05/22/2022 until 06/21/2023 [facility] Work Phone: Comment on above: 1 Occurrences starti ng 05/22/2022 until 06/21/2023 LUNG DIFFUSION CAPAC ITY (DLCO) LUNG DIFFUSION CAPACITY (DLCO) PFT Routine ILD (interstitial lung disease) (HCC) 10/31/2022 2:06 PM EDT [facility] Work Phone: End: 11-30-2023 LUNG DIFFUSION CAPACITY (DLCO) LUNG DIFFUSION CAPACITY (DLCO) PFT Routine IPF (idiopathic pulmonary fibrosis) (HCC) 1 Occurrences starting 10/31/2022 until 11/30/2023 [facility] Work Phone: Comment on above: 1 Occurrences starti ng 10/31/2022 until 11/30/2023 LUNG DIFFUSION CAPAC ITY (DLCO) LUNG DIFFUSION CAPACITY (DLCO) PFT Routine IPF (idiopathic pulmonary fibrosis) (HCC) 02/05/2023 1:26 PM EST [facility] Work Phone: LUNG DIFFUSION CAPAC ITY (DLCO) LUNG DIFFUSION CAPACITY (DLCO) PFT Routine Interstitial pulmonary disease (HCC) 10/16/2023 12:14 PM EDT [facility] Work Phone: End: 11-14-2024 LUNG DIFFUSION CAPACITY (DLCO) LUNG DIFFUSION CAPACITY (DLCO) PFT Routine IPF (idiopathic pulmonary fibrosis) (HCC) 1 Occurrences starting 10/16/2023 until 11/14/2024 [facility] Comment on above: 1 Occurrences starti ng 10/16/2023 until 11/14/2024 Pulmonary rehabilita tion pro CONSULT PULMONARY REHABILITATION PROGRAM Procedures Routine IPF (idiopathic pulmonary fibrosis) (HCC) Chronic hypoxemic respiratory failure (HCC) Ordered: 10/31/2022 [facility] Work Phone: Comment on above: Ordered: 10/31/2022 Pulmonary rehabilita tion pro CONSULT PULMONARY REHABILITATION PROGRAM Procedures Routine IPF (idiopathic pulmonary fibrosis) (HCC) Ordered: 02/05/2023 [facility] Work Phone: Comment on above: Ordered: 02/05/2023 SPIROMETRY - BASELIN E AND POST DILATOR SPIROMETRY - BASELINE AND POST DILATOR PFT Routine Interstitial pulmonary disease (HCC) 10/16/2023 12:14 PM EDT [facility] Work Phone: End: 06-21-2023 SPIROMETRY WITH DILATOR IF OBSTRUCTED SPIROMETRY WITH DILATOR IF OBSTRUCTED PFT Routine ILD (interstitial lung disease) (HCC) 1 Occurrences starting 05/22/2022 until 06/21/2023 [facility] Work Phone: Comment on above: 1 Occurrences starti ng 05/22/2022 until 06/21/2023 End: 11-30-2023 SPIROMETRY WITH DILATOR IF OBSTRUCTED SPIROMETRY WITH DILATOR IF OBSTRUCTED PFT Routine IPF (idiopathic pulmonary fibrosis) (HCC) 1 Occurrences starting 10/31/2022 until 11/30/2023 [facility] Work Phone: Comment on above: 1 Occurrences starti ng 10/31/2022 until 11/30/2023 SPIROMETRY WITH DILA TOR IF OBSTRUCTED SPIROMETRY WITH DILATOR IF OBSTRUCTED PFT Routine IPF (idiopathic pulmonary fibrosis) ([facility]) 02/05/2023 1:26 PM EST [facility] Work Phone: End: 11-14-2024 SPIROMETRY WITH DILATOR IF OBSTRUCTED SPIROMETRY WITH DILATOR IF OBSTRUCTED PFT Routine IPF (idiopathic pulmonary fibrosis) ([facility]) 1 Occurrences starting 10/16/2023 until 11/14/2024 [facility] Comment on above: 1 Occurrences starti ng 10/16/2023 until 11/14/2024 End: 11-14-2024 XR Chest PA and Lateral XR CHEST 2V FRONTAL/LAT Radiology Routine IPF (idiopathic pulmonary fibrosis) ([facility]) 1 Occurrences starting 10/16/2023 until 11/14/2024 [facility] Comment on above: 1 Occurrences starti ng 10/16/2023 until 11/14/2024 [facility] Immunizations Immunization Date Immunization Notes Care Provider Fa cility 11-29-2022 influenza virus vacc ine, unspecified formulation Timi Almaraz MD Work Phone: [facility] 01-19-2022 influenza virus vacc ine, unspecified formulation Yocasta [facility] 01-19-2019 influenza, high dose seasonal, preservative-free Tammy Wei RN [facility] 04-26-2016 influenza, high dose seasonal, preservative-free Tammy Wei RN [facility] 04-22-2015 zoster vaccine, live Tammy Wei RN [facility] 04-11-2015 pneumococcal conjuga te vaccine, 13 valent Tammy Wei RN [facility] 01-19-2014 influenza, high dose seasonal, preservative-free Tammy Wei RN [facility] Work Phone: 01-19-2014 pneumococcal polysaccharide vaccine, 23 valent Tammy Wei RN [facility] Work Phone: 01-13-2013 influenza virus vacc ine, unspecified formulation Tammy Wei RN [facility] Work Phone: 12-23-2009 influenza virus vacc ine, unspecified formulation Tammy Wei RN [facility] Work Phone: 12-13-2008 influenza virus vacc ine, unspecified formulation Tammy Wei RN [facility] 12-13-2008 pneumococcal polysaccharide vaccine, 23 valent Tammy Wei RN [facility] 01-02-2005 influenza virus vacc ine, unspecified formulation Tammy Wei RN [facility] Work Phone: 01-03-2004 diphtheria and tetan us toxoids, adsorbed for pediatric use Tammy Wei RN [facility] Work Phone: Payers Date Payer Category Payer Medicare MEDICARE MEDICAR E A AND B [id number] 2010-Present [phone] [address] [address] [place] [address] Medicare [id number] 2010 Medicare [id number] 2005 Private Health Insurance [employer] PPO [id number] 2005-Present [phone] [address] [place] [address] PPO [id number] 2005 Private Health Insurance [id number] 1945 Unknown [id number] 2.16.840.1.151931.3.579. 2.651 1945 Unknown [id number] 2.16.840.1.302066.3.579. 2.651 1945 Unknown [id number] 2.16.840.1.706095.3.579. 2.651 1945 Unknown [id number] 2.16.840.1.300407.3.579. 2.651 1945 Unknown [id number] 2.16.840.1.507097.3.579. 2.65 1945 Unknown [id number] 2.16.840.1.190320.3.579. 2.65 1945 Unknown [id number] 2.16.840.1.145341.3.579. 2.65 1945 Unknown [id number] 2.16.840.1.044776.3.579. 2.65 1945 Unknown [id number] 2.16840.1.083479.3.579. 2.65 1945 Unknown [id number] 2.16840.1.526539.3.579. 2 1945 Unknown [id number] 2.16840.1.285634.3.579. 2. 1945 Unknown [id number] 2.840.1.219118.3.579. 2 1945 Unknown [id number] 2.16840.1.517616.3.579. 2. 1945 Unknown [id number] 2.840.1.307371.3.579. 2. 1945 Unknown [id number] 2.16840.1.444839.3.579. 2. 1945 Unknown [id number] 2.16840.1.772409.3.579. 2. 1945 Unknown [id number] 2.16840.1.495693.3.579. 2. 1945 Unknown [id number] 2.16840.1.577967.3.579. 2. 1945 Unknown [id number] 2.16840.1.184909.3.579. 2.65 1945 Unknown [id number] 2.16840.1.632238.3.579. 2 1945 Unknown [id number] 2.16.840.1.815938.3.579. 2.65 1945 Unknown [id number] 2.16.840.1.199698.3.579. 2. 1945 Unknown [id number] 2.16.840.1.255347.3.579. 2. 1945 Unknown [id number] 2.16840.1.957845.3.579. 2. 1945 Unknown [id number] 2.16840.1.046713.3.579. 2. 1945 Unknown [id number] 2.840.1.503920.3.579. 2 1945 Unknown [id number] 2.840.1.639460.3.579. 2 1945 Unknown [id number] 2.840.1.757434.3.579. 2 1945 Unknown [id number] 2.840.1.401007.3.579. 2 1945 Unknown [id number] 2.840.1.091173.3.579. 2 1945 Unknown [id number] 2.840.1.115109.3.579. 2 1945 Unknown [id number] 2.840.1.551716.3.579. 2. 1945 Unknown [id number] 2.16840.1.299614.3.579. 2. 1945 Unknown [id number] 2.16840.1.656529.3.579. 2 1945 Unknown [id number] 2.16840.1.587064.3.579. 2. 1945 Unknown [id number] 2.16840.1.428223.3.579. 2.651 1945 Unknown [id number] 2.16.840.1.448177.3.579. 2.651 1945 Unknown [id number] 2.16.840.1.344754.3.579. 2.651 1945 Unknown [id number] 2.16.840.1.077997.3.579. 2.65 1945 Unknown [id number] 2.16.840.1.153773.3.579. 2.651 1945 Unknown [id number] 2.16.840.1.918664.3.579. 2.65 1945 Unknown [id number] 2.840.1.822557.3.579. 2.65 1945 Unknown [id number] 2.840.1.736485.3.579. 2.65 1945 Unknown [id number] 2.16840.1.668676.3.579. 2.651 1945 Unknown [id number] 2.840.1.343872.3.579. 2.65 1945 Unknown [id number] 2.16840.1.863057.3.579. 2.651 1945 Unknown [id number] 2.840.1.671789.3.579. 2.65 1945 Unknown [id number] 2.16.840.1.313896.3.579. 2.651 1945 Unknown [id number] 2.16.840.1.617437.3.579. 2.651 1945 Unknown [id number] 2.16.840.1.524755.3.579. 2.651 1945 Unknown [id number] 2.16.840.1.342539.3.579. 2.651 1945 Unknown [id number] 2.16.840.1.605573.3.579. 2.651 Medicare [id number] Social History Date Type Detail Facility Start: 01-14-2012 End: 07-25-2022 Tobacco smoking status NHIS Ex-smoker [facility] End: 03-04-2002 History of tobacco use Current smoker [facility] End: 03-04-2002 History of tobacco use Cigarette Smoker [facility] History of tobacco use Cigar Smoker [facility] Start: 01-14-2012 End: 07-25-2022 Tobacco use and exposure Smokeless tobacco non-user [facility] Start: 11-21-2020 End: 10-16-2023 Alcohol intake Current drinker of alcohol (finding) [facility] Start: 11-21-2020 End: 07-25-2022 Alcohol intake [facility] Start: 08-12-2019 End: 09-28-2019 History SDOH Alcohol Frequency 2 [facility] Start: 08-12-2019 End: 09-28-2019 History SDOH Alcohol Std Drinks 1 [facility] Start: 04-16-2019 End: 08-12-2019 History SDOH Social Connections Phone 5 [facility] Start: 08-12-2019 History SDOH Social Connections Religious 98 [facility] Start: 04-16-2019 History SDOH Physical Activity DPW 0 [facility] Start: 08-12-2019 History SDOH Stress 3 [facility] Start: 04-16-2019 Education 12 [facility] Start: 1945 Sex Assigned At Male [facility] Start: 07-25-2022 Tobacco Comment quit cigars [facility] Start: 08-12-2019 End: 07-25-2022 Social connection and isolation panel [facility] Frequency of Communication with Friends and Family Not on file [facility] Are you now , , , , never or living with a partner? Refused [facility] How often to you hav e a drink containing alcohol? Monthly or less [facility] Work Phone: How many standard dr inks containing alcohol do you have on a typical day? 1 or 2 [facility] Work Phone: How often do you hav e 6 or more drinks on 1 occasion? Never [facility] Work Phone: Do you feel stress - tense, restless, nervous, or anxious, or unable to sleep at night because your mind is troubled all the time - these days [OSQ] To some extent [facility] (I/We) worried wheth er (my/our) food would run out before (I/we) got money to buy more. Never true [facility] Work Phone: In the past 12 month s, was there a time when you were not able to pay the mortgage or rent on time? No [facility] Start: 09-27-2019 Gender identity Identifies as male gender (finding) [facility] Start: 11-14-2020 Sexual orientation Heterosexual (finding) [facility] Medical Equipment Procedure Code Equipment Code Equipment Original Text Equipment Identifier Dates Stent Icast 6fr 6mm 16mm Tracheobronchial Covered - [id number] Start: 10-02-2019 Stent Icast 6mm 6fr .035in Ptfe 22mm 120cm Tracheobronchial Covered - [id number] Start: 10-02-2019 Stent Icast 6mm 6fr .035in Ptfe 22mm 120cm Tracheobronchial Covered - [id number] Start: 10-02-2019 Stent Icast 6mm 6fr .035in Ptfe 22mm 120cm Tracheobronchial Covered - [id number] Start: 10-02-2019 Clinical Notes 09-30-2019 to 12-23-2023 Telephone Encounter - Yocasta Bradley - 12/23/2023 12:44 PM EDTTelephone Encounter - Yocasta Bradley - 12/23/2023 12:44 PM EDTTelephone Encounter - Yocasta Bradley - 11/21/2023 9:37 AM EDT Note Date & Type Note Facility 12-23-2023 Telephone encounter Note Received fax RX request form from [facility] dated 12/12/2023; medication Pirfenidone; form complete, signed and fax back to [facility] on 12/18/2023. [facility] 12-23-2023 Miscellaneous Notes Received fax RX request form from [facility] dated 12/12/2023; medication Pirfenidone; form complete, signed and fax back to [facility] on 12/18/2023. documented in this encounter [facility] 11-21-2023 Telephone encounter Note Received call today 11/21/2023 from [facility]; sleep technician Aayushi requesting new RX for Pirfenidone 801 MG; patient prior medication delivery was tampered with; verbal RX order given. DX - J84.112 IPF [facility] 11-21-2023 Miscellaneous Notes Received call today 11/21/2023 from [facility]; sleep technician Aayushi requesting new RX for Pirfenidone 801 MG; patient prior medication delivery was tampered with; verbal RX order given. DX - J84.112 IPF documented in this encounter [facility] 10-17-2023 Telephone encounter Note Re[facility] medication Pir[facility]; PA done today 10/17/2023 thru [facility]; [place]: BRREUDUG; outcome status; ;Status:Approved;Review Type:Prior Auth;Coverage Start Date:09/10/2023;Coverage End Date:10/09/2024; DX - J84.112 IPF Started Pirfenidone 11/2022 [facility] 10-17-2023 Miscellaneous Notes Received fax PA request from [employer]; medication Pirfenidone; PA done today 10/17/2023 thru [employer]; [place]: BASHIRUDUG; outcome status; ;Status:Approved;Review Type:Prior Auth;Coverage Start Date:09/10/2023;Coverage End Date:10/09/2024; DX - J84.112 IPF Started Pirfenidone 11/2022 documented in this encounter [facility] 10-16-2023 Instructions Olman Mancini MD - 10/16/2023 2:19 PM EDT - Your breathing tests and CT chest are stable - You can get blood test - liver function tests today - Please follow up in 6 months with breathing test and chest x ray documented in this encounter [facility] 10-16-2023 Note HNO ID: [id number] Author: TIMI MORGAN MD Service: ? Author Type: Physician Type: Progress Notes Filed: 10/16/2023 14:30 Note Text: [facility] [place] Ekta Zimmer is a 78 year old male here for a follow up with the [facility] Interstitial Lung Disease Team. 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 He has had stable to mild progression from 2019 to 2022. He started pirfenidone in November 2022. He has evidence of grade II DD and RVSP elevated at 60mmHg with normal RV size and function. Last office visit was on 04/03/2023 when the plan was to check LFTs and follow up in [address] chest and PFTs Since the last visit, he has been doing okay. No worsening shortness of breath. No ED visits/ hospitalizations. On pirfenidone 801mg TID, tolerating well. No side effects. Had LFTs done at OSH. Using 3L NC at home at rest and 5L on exertion He bikes everyday at home. He states that he has been having runny nose for a few months now No congestion or post nasal drip He may have allergies but does not usually get symptoms around this time REVIEW OF SYSTEMS: MRC Dyspnea Scale: 5. Too breathless to leave the house, or breathless when dressing or undressing All others per history of present illness or otherwise negative on detailed 14 point review. PAST MEDICAL HISTORY 09/04: Acute, but ill-defined, cerebrovascular disease Comment: L hemispheric No date: Arrhythmia No date: Atherosclerosis of renal artery (HCC) No date: Atrial fib/flutter, transient Comment: Atrial flutter 08/30/12 No date: CAD (coronary atherosclerotic disease) 11/13/2007: CHRONIC KIDNEY DISEASE, STAGE III (MOD) No date: Diarrhea No date: Diverticulosis of colon (without mention of hemorrhage) No date: Essential hypertension, benign 04/23/2007: Impaired fasting glucose No date: Internal hemorrhoids without mention of complication No date: Occlusion and stenosis of carotid artery without mention of cerebral infarction Comment: LEFT No date: On home oxygen therapy Comment: since June 2019 No date: Other and unspecified hyperlipidemia No date: Peripheral vascular disease (HCC) Comment: Stents in L carotid, L renal artery, and B iliacs; R Cebul No date: Stroke (HCC) Comment: TIAs. last occurrence 2003 PAST SURGICAL HISTORY [id number]: ARTHRP KNE CONDYLEANDPLATU MEDIALANDLAT COMPARTMENTS Comment: Dr Eber Drew 10/05: BYP OTH/THN VEIN COMMON-IPSILATERAL CAROTID Comment: L Carotid endovasc Endarectomy/stent 08/14/12: CABG (4) VEIN GRAFTS AND ARTERIAL GRAFT(S) Comment: GARRETT to 1st Dx AND LAD, Saph to OM and Post descending 08/12/2017: COLONOSCOPY FLX DX W/COLLJ SPEC WHEN PFRMD Comment: Colonoscopy 06/22/09: COLONOSCOPY W/BIOPSY SINGLE/MULTIPLE Comment: repeat due 11/06: ENDOVASC TAA STENT REPAIR Comment: L renal arteryangioplasty/stent 08/12/2017: ESOPHAGOGASTRODUODENOSCOPY TRANSORAL DIAGNOSTIC Comment: EGD 01/05: EVASC PLACEMENT ILIAC ARTERY OCCLUSION DEVICE Comment: bilat iliac angioplasty/stent No date: RPR 1ST INGUN HRNA AGE 5 YRS/> REDUCIBLE Comment: Left 10/30/10: RPR 1ST INGUN HRNA AGE 5 YRS/> REDUCIBLE Comment: Right 05/21/2016: TEAEC W/PATCH GRF CAROTID VERTB SUBCLAV NECK INC; Right No date: XCAPSL CTRC RMVL INSJ IO LENS PROSTH W/O ECP; Bilateral SOCIAL HISTORY: Social History Tobacco Use Smoking status: Former Types: Cigarettes, Cigars Quit date: 07/25/1982 Years since quittin.2 Smokeless tobacco: Never Tobacco comments: quit cigars Alcohol Use: Approximately 3.6 oz/week [which includes 6 Cans of Beer (12oz) per week] (OCCASIONALLY) Drug Use: No FAMILY HISTORY Problem Relation Age of Onset other (chf) Mother other (chf) Father Diabetes Brother x 2 Ischemic Heart Disease Son d. [place] Ischemic Heart Disease Son CABG Cancer Brother Diabetes Sister other (cabg) Brother x 2 ALLERGIES Allergen Reactions Dust Other: See Comments Mold Other: See Comments CURRENT MEDICATIONS pantoprazole (PROTONIX) 40 mg injectionInject 40 mg intravenously daily at 6 am.Disp: Rfl: pirfenidone (ESBRIET) 801 mg tabletTake 1 tablet by mouth three times a day with meals.Disp: 90 tabletRfl: 11 bumetanide (BUMEX) 1 mg tabletTake 1 tablet by mouth twice daily Once a dayDisp: Rfl: doxazosin (CARDURA) 4 mg tabletTake 4 mg by mouth daily at bedtime.Disp: Rfl: lisinopril (ZESTRIL) 40 mg tabletTake 40 mg by mouth once daily.Disp: Rfl: sertraline (ZOLOFT) 50 mg tabletDisp: Rfl: doxazosin (CARDURA) 2 mg tabletTake 2 mg by mouth daily at bedtime.Disp: Rfl: amLODIPine (NORVASC) 10 mg tabletDisp: Rfl: ascorbic acid, vitamin C, (VITAMIN C) 500 mg tabletTake 500 mg by mouth once daily.Disp: Rfl: allopurinol (ZYLOPRIM) 100 mg tabletTake 100 mg by mouth once daily.Disp: Rfl: cetirizine HCl (ZYRTEC) 10 mg chewable tabletTake 10 mg by mo (more content not included)... [facility] 10-16-2023 History of Present illness Narrative Images from the original note were not included. [facility] [place] Ekta Zimmer is a 78 year old male here for a follow up with the [facility] Interstitial Lung Disease Team. 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 He has had stable to mild progression from 2019 to 2022. He started pirfenidone in November 2022. He has evidence of grade II DD and RVSP elevated at 60mmHg with normal RV size and function. Last office visit was on 04/03/2023 when the plan was to check LFTs and follow up in [address] chest and PFTs Since the last visit, he has been doing okay. No worsening shortness of breath. No ED visits/ hospitalizations. On pirfenidone 801mg TID, tolerating well. No side effects. Had LFTs done at OSH. Using 3L NC at home at rest and 5L on exertion He bikes everyday at home. He states that he has been having runny nose for a few months now No congestion or post nasal drip He may have allergies but does not usually get symptoms around this time REVIEW OF SYSTEMS: MRC Dyspnea Scale: 5. Too breathless to leave the house, or breathless when dressing or undressing All others per history of present illness or otherwise negative on detailed 14 point review. PAST MEDICAL HISTORY 09/04: Acute, but ill-defined, cerebrovascular disease Comment: L hemispheric No date: Arrhythmia No date: Atherosclerosis of renal artery (HCC) No date: Atrial fib/flutter, transient Comment: Atrial flutter 08/30/12 No date: CAD (coronary atherosclerotic disease) 11/13/2007: CHRONIC KIDNEY DISEASE, STAGE III (MOD) No date: Diarrhea No date: Diverticulosis of colon (without mention of hemorrhage) No date: Essential hypertension, benign 04/23/2007: Impaired fasting glucose No date: Internal hemorrhoids without mention of complication No date: Occlusion and stenosis of carotid artery without mention of cerebral infarction Comment: LEFT No date: On home oxygen therapy Comment: since June 2019 No date: Other and unspecified hyperlipidemia No date: Peripheral vascular disease (HCC) Comment: Stents in L carotid, L renal artery, and B iliacs; R Cebul No date: Stroke (HCC) Comment: TIAs. last occurrence 2003 PAST SURGICAL HISTORY [id number]: ARTHRP KNE CONDYLE&PLATU MEDIAL&LAT COMPARTMENTS Comment: Dr Eber Drew 10/05: BYP OTH/THN VEIN COMMON-IPSILATERAL CAROTID Comment: L Carotid endovasc Endarectomy/stent 08/14/12: CABG (4) VEIN GRAFTS & ARTERIAL GRAFT(S) Comment: GARRETT to 1st Dx & LAD, Saph to OM and Post descending 08/12/2017: COLONOSCOPY FLX DX W/COLLJ SPEC WHEN PFRMD Comment: Colonoscopy 06/22/09: COLONOSCOPY W/BIOPSY SINGLE/MULTIPLE Comment: repeat due 11/06: ENDOVASC TAA STENT REPAIR Comment: L renal arteryangioplasty/stent 08/12/2017: ESOPHAGOGASTRODUODENOSCOPY TRANSORAL DIAGNOSTIC Comment: EGD 01/05: EVASC PLACEMENT ILIAC ARTERY OCCLUSION DEVICE Comment: bilat iliac angioplasty/stent No date: RPR 1ST INGUN HRNA AGE 5 YRS/> REDUCIBLE Comment: Left 10/30/10: RPR 1ST INGUN HRNA AGE 5 YRS/> REDUCIBLE Comment: Right 05/21/2016: TEAEC W/PATCH GRF CAROTID VERTB SUBCLAV NECK INC; Right No date: XCAPSL CTRC RMVL INSJ IO LENS PROSTH W/O ECP; Bilateral SOCIAL HISTORY: Social History Tobacco Use Smoking status: Former Types: Cigarettes, Cigars Quit date: 07/25/1982 Years since quittin.2 Smokeless tobacco: Never Tobacco comments: quit cigars Alcohol Use: Approximately 3.6 oz/week [which includes 6 Cans of Beer (12oz) per week] (OCCASIONALLY) Drug Use: No FAMILY HISTORY Problem Relation Age of Onset other (chf) Mother other (chf) Father Diabetes Brother x 2 Ischemic Heart Disease Son d. [place] Ischemic Heart Disease Son CABG Cancer Brother Diabetes Sister other (cabg) Brother x 2 ALLERGIES Allergen Reactions Dust Other: See Comments Mold Other: See Comments CURRENT MEDICATIONS pantoprazole (PROTONIX) 40 mg injection^Inject 40 mg intravenously daily at 6 am.^Disp: ^Rfl: pirfenidone (ESBRIET) 801 mg tablet^Take 1 tablet by mouth three times a day with meals.^Disp: 90 tablet^Rfl: 11 bumetanide (BUMEX) 1 mg tablet^Take 1 tablet by mouth twice daily Once a day^Disp: ^Rfl: doxazosin (CARDURA) 4 mg tablet^Take 4 mg by mouth daily at bedtime.^Disp: ^Rfl: lisinopril (ZESTRIL) 40 mg tablet^Take 40 mg by mouth once daily.^Disp: ^Rfl: sertraline (ZOLOFT) 50 mg tablet^^Disp: ^Rfl: doxazosin (CARDURA) 2 mg tablet^Take 2 mg by mouth daily at bedtime.^Disp: ^Rfl: amLODIPine (NORVASC) 10 mg tablet^^Disp: ^Rfl: ascorbic acid, vitamin C, (VITAMIN C) 500 mg tablet^Take 500 mg by mouth once daily.^Disp: ^Rfl: allopurinol (ZYLOPRIM) 100 mg tablet^Take 100 mg by mouth once daily.^Disp: ^Rfl: cetirizine HCl (ZYRTEC) 10 mg chewable tablet^Take 10 mg by mouth once daily.^Disp: ^Rfl: potassium chloride ER (K-DUR, KLOR-CON) 20 mEq tablet^Take 20 mEq by mouth twice daily.^Disp: ^Rfl: doxazosin (CARDURA) 8 mg tablet^Take 8 mg by mouth daily at bedtime.^Disp: ^Rfl: (Patient not taking: Reported on 07/25/2022) iv contrast (will be provided with radiology test)^CT Cardiac - No IV access, insert saline lock prior to the sedation, infusion, injection for imaging exam. Discontinue saline lock post exam. If Pt. has a central line or IVAD, may access for administration according to line specific nursing protocol. Once exam is complete flush line and de-access according to line specific nursing protocol in the CT contrast administration guidelines link.^Disp: 1 Each^Rfl: 0 bumetanide (BUMEX) 2 mg tablet^Take 1 mg by mouth once daily. ^Disp: ^Rfl: hydrALAZINE (APRESOLINE) 100 mg tablet^Take 100 mg by mouth three times daily.^Disp: ^Rfl: ezetimibe (ZETIA) 10 mg tablet^Take 1 tablet by mouth once daily.^Disp: 90 tablet^Rfl: 3 ferrous sulfate 325 mg (65 mg iron) tablet^Take 1 tablet by mouth twice daily with meals.^Disp: 60 tablet^Rfl: 5 nitroglycerin sublingual (NITROQUICK) 0.4 mg SL tablet^Dissolve 1 tablet under the tongue every 5 minutes as needed. FOR CHEST PAIN. IF NO RELIEF CALL 911^Disp: 1 Bottle of 25^Rfl: 5 carvedilol (COREG) 25 mg tablet^Take 25 mg by mouth twice daily with meals. ^Disp: ^Rfl: atorvastatin (LIPITOR) 80 mg tablet^Take 1 tablet by mouth once daily.^Disp: 90 tablet^Rfl: 3 ASPIRIN 81 MG TAB^Take one(1) tablet daily.^Disp: 30^Rfl: 0 MULTIVITAMIN ORAL TAB^Take one(1) tablet daily.^Disp: ^Rfl: 0 (Patient not taking: Reported on 04/03/2023) PHYSICAL EXAM: Wt 146 lb 2.6 oz (66.3kg) General appearance: Well appearing, alert, in no acute distress. Skin: No suspicious rashes or lesions Head: Normocephalic, no lesions or alopecia Eyes: No jaundice, no redness Respiratory: No labored breathing, no cyanosis. Extremities: No edema, clubbing. Musculoskeletal: No joint swelling, no deformity Neuro: Gait normal. Grossly non-focal DATA REVIEWED (independently reviewed by myself) Laboratory Data Laboratory data reviewed in [facility] Everywhere. Pulmonary Function Data PFT available since last visit: Yes. PFT results Stable Six minute walk Six minute walk available since last visit: No Radiology Data New radiology data since last visit: CT Chest: Stable Echocardiogram Was an echo performed since last visit?: No Heart Catheterization Was a right heart catheterization performed since last visit?: No ASSESSMENT Ekta Zimmer is a 78 year old male with IPF coming for a follow up Idiopathic Pulmonary Fibrosis Diagnosis based on CT chest with probable UIP and lack of other potential causes. He has had stable to mild progression from 2019 to 2022. He started pirfenidone in November 2022. He has evidence of grade II DD and RVSP elevated at 60mmHg with normal RV size and function - Overall, stable since the last visit - On 3L NC at rest and 5L on exertion - CT chest and PFTs stable - On pirfenidone 801mg TID, tolerating well. No side effects - Up to date with vaccines PLAN - Continue pirfenidone 801mg TID - Repeat LFTs - On 3L NC at rest and 5L on exertion - Okay to use OTC nasal sprays or allergy medications - Follow up in 6 months with CXR and PFTs - Annual CT chest to monitor for malignancy Treating diagnosis: IPF: Idiopathic pulmonary fibrosis ILD medications at end of visit: Pirfenidone Follow-up in 6 months ILD CHECKLIST Was the patient discussed at a multidisciplinary discussion?: No Is the patient being treated with oxygen therapy?: Yes- continuous. On 3L NC at rest and 5L on exertion Does the patient have pulmonary hypertension: Suspected but not yet confirmed, RHC not performed Is the patient being referred for transplantation?: No Olman Mancini MD October 16, 2023 STAFF ATTENDING NOTE I have personally interviewed and examined the patient. I have personally verified elements of the exam listed above. Interval changes or irregualrities are as noted. I have personally and independently reviewed data (see data section). I have personally reviewed the problem list above and concur. Changes, if any, are noted. I have personally reviewed the plan list above and concur. Changes, if any, are noted. Timi Almaraz MD 10/16/2023 documented in this encounter [facility] 10-16-2023 Note HNO ID: [id number] Author: REAL PIKE RRT Service: ? Author Type: Registered Resp Therapist Type: Progress Notes Filed: 10/16/2023 12:29 Note Text: PULM FUNCTION: Provider: Timi Morgan MD Spirometry w/BD: 1 DLCO: 1 [facility] 10-16-2023 History of Present illness Narrative PULM FUNCTION: Provider: Timi Morgan MD Spirometry w/BD: 1 DLCO: 1 documented in this encounter [facility] 10-16-2023 History of Present illness Narrative Radiology Service Progress Note PATIENT NAME: Ekta Zimmer DATE OF SERVICE: October 16, 2023 TIME: 11:09 AM PATIENT IDENTITY VERIFICATION COMPLETED USING TWO (2) IDENTIFIERS: Name and Date of confirmed by patient verbally. FALL SCREENING: Has the patient had 2 falls in the last year or 1 fall with injury or currently using an Ambulatory Assistive Device (Walker, Cane, Wheelchair, Crutches, etc.)? No PATIENT PRESENTS WITH AN IMPLANTABLE OR ATTACHED DENTIST/OWNER: No RADIOLOGY DEPARTMENT: CT; Exam(s) Completed: Chest PERIPHERAL IV DATA: Not applicable SIGNED BY: RT Julia(Dawna) October 16, 2023 11:09 AM documented in this encounter [facility] 10-16-2023 Note HNO ID: [id number] Author: SARAI ALAN RT(R) Service: ? Author Type: Technologist Type: Progress Notes Filed: 10/16/2023 11:09 Note Text: Radiology Service Progress Note PATIENT NAME: Ekta Zimmer DATE OF SERVICE: October 16, 2023 TIME: 11:09 AM PATIENT IDENTITY VERIFICATION COMPLETED USING TWO (2) IDENTIFIERS: Name and Date of confirmed by patient verbally. FALL SCREENING: Has the patient had 2 falls in the last year or 1 fall with injury or currently using an Ambulatory Assistive Device (Walker, Cane, Wheelchair, Crutches, etc.)? No PATIENT PRESENTS WITH AN IMPLANTABLE OR ATTACHED DENTIST/OWNER: No RADIOLOGY DEPARTMENT: CT; Exam(s) Completed: Chest PERIPHERAL IV DATA: Not applicable SIGNED BY: RT Julia(Dawna) October 16, 2023 11:09 AM [facility] 10-10-2023 Telephone encounter Note Supporting Information for an exception request or prior authorization has been printed and placed in providers folder to be completed. Tiny Scruggs October 10, 2023 3:36 PM Admin scanned a blank in pt's chart. Tiny Scruggs October 10, 2023 3:37 PM [facility] 10-10-2023 Miscellaneous Notes Supporting Information for an exception request or prior authorization has been printed and placed in providers folder to be completed. Tiny Scruggs October 10, 2023 3:36 PM Admin scanned a blank in pt's chart. Tiny Scruggs October 10, 2023 3:37 PM Summary: Pirfenidone Images from the original note were not included. EKTA ZIMMER ([place]arshall: PHIL OCONNOR Approved today by [facility] 2017 CaseId:[id number];Status:Approved Review Type:Prior Auth;Coverage Start Date:09/10/2023;Coverage End Date:10/09/2024 Authorization Expiration Date: 10/08/2024 Drug Pirfenidone 801MG tablets Summary: Prior Authorization Images from the original note were not included. Admin is awaiting a decision on Pirfenidone 801MG tablets Tiny Scruggs October 10, 2023 12:24 PM Summary: Prior Authorization Prior Authorization Documentation Prior authorization requested for the following medication: Medication: Pirfenidone Provider: Dr. Jane Insurance Company Name: Medicare Insurance [employer] Phone number: Patient ID number: [id number] [facility] ID # [id number] Pharmacy Name: [facility] Telephone number: [phone] documented in this encounter [facility] 10-10-2023 Telephone encounter Note Summary: Pirfenidone Images from the original note were not included. EKTA ZIMMER ([place]: AMPARO) ELVIN Approved today by [employer] [facility] Medicare 2017 CaseId:[id number];Status:Approved Review Type:Prior Auth;Coverage Start Date:09/10/2023;Coverage End Date:10/09/2024 Authorization Expiration Date: 10/08/2024 Drug Pirfenidone 801MG tablets [facility] 10-10-2023 Telephone encounter Note Summary: Prior Authorization Images from the original note were not included. Admin is awaiting a decision on Pirfenidone 801MG tablets Tiny Scruggs October 10, 2023 12:24 PM [facility] 10-10-2023 Telephone encounter Note Summary: Prior Authorization Prior Authorization Documentation Prior authorization requested for the following medication: Medication: Pirfenidone Provider: Dr. Jane Insurance Company Name: Medicare Insurance Company Phone number: Patient ID number: [id number] [employer] ID # [id number] Pharmacy Name: [facility] Telephone number: [phone] [facility] 04-26-2023 Miscellaneous Notes Images from the original note were not included. Admin faxed signed oxygen SWO. documented in this encounter [facility] 04-03-2023 Note HNO ID: [id number] Author: TIMI MORGAN MD Service: ? Author Type: Physician Type: Progress Notes Filed: 04/04/2023 08:29 Note Text: [facility] [place] Ekta Zimmer is a 77 year old male here for a follow up with the [facility] Interstitial Lung Disease Team. 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 He has had stable to mild progression from 2019 to 2022. He started pirfenidone in November 2022. He has evidence of grade II DD and RVSP elevated at 60mmHg with normal RV size and function Last visit on 02/05/2023 Since the last visit, he has been doing okay. No worsening shortness of breath. No ED visits/ hospitalizations. He could not enrol in pulmonary rehab his was sick and was hospitalized. But he bikes everyday at home. He uses only 2L NC at home now. On pirfenidone 801mg TID, tolerating well. No side effects REVIEW OF SYSTEMS: MRC Dyspnea Scale: 5. Too breathless to leave the house, or breathless when dressing or undressing All others per history of present illness or otherwise negative on detailed 14 point review. PAST MEDICAL HISTORY Diagnosis Date Acute, but ill-defined, cerebrovascular disease 09/04 L hemispheric Arrhythmia Atherosclerosis of renal artery (HCC) Atrial fib/flutter, transient Atrial flutter 08/30/12 CAD (coronary atherosclerotic disease) CHRONIC KIDNEY DISEASE, STAGE III (MOD) 11/13/2007 Diarrhea Diverticulosis of colon (without mention of hemorrhage) Essential hypertension, benign Impaired fasting glucose 04/23/2007 Internal hemorrhoids without mention of complication Occlusion and stenosis of carotid artery without mention of cerebral infarction LEFT On home oxygen therapy since June 2019 Other and unspecified hyperlipidemia Peripheral vascular disease (HCC) Stents in L carotid, L renal artery, and B iliacs; R Cebul Stroke (HCC) TIAs. last occurrence 2003 PAST SURGICAL HISTORY Procedure Laterality Date [facility] [id number] Dr Eber Drew BYP OTH/N VEIN COMMON-IPSILATERAL CAROTID 10/05 L Carotid endovasc Endarectomy/stent CABG (4) VEIN GRAFTS AND ARTERIAL GRAFT(S) 08/14/12 GARRETT to 1st Dx AND LAD, Saph to OM and Post descending COLONOSCOPY FLX DX W/COLLJ SPEC WHEN PFRMD 08/12/2017 Colonoscopy COLONOSCOPY W/BIOPSY SINGLE/MULTIPLE 06/22/09 repeat due 2019 ENDOVASC TAA STENT REPAIR 11/06 L renal arteryangioplasty/stent ESOPHAGOGASTRODUODENOSCOPY TRANSORAL DIAGNOSTIC 08/12/2017 EGD EVASC PLACEMENT ILIAC ARTERY OCCLUSION DEVICE 01/05 bilat iliac angioplasty/stent RPR 1ST INGUN HRNA AGE 5 YRS/> REDUCIBLE Left RPR 1ST INGUN HRNA AGE 5 YRS/> REDUCIBLE 10/30/10 Right TEAEC W/PATCH GRF CAROTID VERTB SUBCLAV NECK INC Right 05/21/2016 XCAPSL CTRC RMVL INSJ IO LENS PROSTH W/O ECP Bilateral SOCIAL HISTORY: Social History Tobacco Use Smoking status: Former Types: Cigarettes, Cigars Quit date: 07/25/1982 Years since quittin.7 Smokeless tobacco: Never Tobacco comments: quit cigars Alcohol Use: Approximately 3.6 oz/week [which includes 6 Cans of Beer (12oz) per week] (OCCASIONALLY) Drug Use: No FAMILY HISTORY Problem Relation Age of Onset other (chf) Mother other (chf) Father Diabetes Brother x 2 Ischemic Heart Disease Son d. [place] Ischemic Heart Disease Son CABG Cancer Brother Diabetes Sister other (cabg) Brother x 2 ALLERGIES Allergen Reactions Dust Other: See Comments Mold Other: See Comments CURRENT MEDICATIONS pantoprazole (PROTONIX) 40 mg injectionInject 40 mg intravenously daily at 6 am.Disp: Rfl: pirfenidone (ESBRIET) 801 mg tabletTake 1 tablet by mouth three times a day with meals.Disp: 90 tabletRfl: 11 bumetanide (BUMEX) 1 mg tabletTake 1 tablet by mouth twice daily Once a dayDisp: Rfl: doxazosin (CARDURA) 4 mg tabletTake 4 mg by mouth daily at bedtime.Disp: Rfl: sertraline (ZOLOFT) 50 mg tabletDisp: Rfl: amLODIPine (NORVASC) 10 mg tabletDisp: Rfl: ascorbic acid, vitamin C, (VITAMIN C) 500 mg tabletTake 500 mg by mouth once daily.Disp: Rfl: hydrALAZINE (APRESOLINE) 100 mg tabletTake 100 mg by mouth three times daily.Disp: Rfl: ezetimibe (ZETIA) 10 mg tabletTake 1 tablet by mouth once daily.Disp: 90 tabletRfl: 3 ferrous sulfate 325 mg (65 mg iron) tabletTake 1 tablet by mouth twice daily with meals.Disp: 60 tabletRfl: 5 nitroglycerin sublingual (NITROQUICK) 0.4 mg SL tabletDissolve 1 tablet under the tongue every 5 minutes as needed. FOR CHEST PAIN. IF NO RELIEF CALL 911Disp: 1 Bottle of 25Rfl: 5 carvedilol (COREG) 25 mg tabletTake 25 mg by mouth twice daily with meals. Disp: Rfl: atorvastatin (LIPITOR) 80 mg tabletTake 1 tablet by mouth once daily.Disp: 90 tabletRfl: 3 ASPIRIN 81 MG TABTake one(1) tablet daily.Disp: 30Rfl: 0 lisinopril (ZESTRIL) 40 mg tabletTake 40 mg by mouth once daily (more content not included)... [facility] 02-05-2023 History of Present illness Narrative HISTORY OF PRESENT ILLNESS: Ekta Zimmer is a very pleasant 77 year old male who presents today for routine follow-up for idiopathic pulmonary fibrosis. Diagnosis based on CT chest with probable UIP and lack of other potential causes. He has had stable to mild progression from 2019 to 2022. He started pirfenidone in November 2022. Currently requires 3-4L oxygen. He has evidence of grade II DD and RVSP elevated at 60mmHg with normal RV size and function. Mr. Zimmer feels that his breathing is about the same, but he does feel significant dyspnea with exertion such as ADLs and showering. He taking the full dose of pirfenidone at 801mg TID. he is tolerating this very well with no side effects. He has been getting erythropoietin injections every week for anemia. He is exercising by walking more often, but has not been enrolled yet in pulmonary rehab. He is using 3L oxygen and his saturations have been in the 90s at all times. In November 2022, he was in [facility] for one week for pneumonia. He recovered fully from this. In the past couple days he has had an outbreak of Shingles on the left side of his face, and is currently on antiviral for 7 days. Had colonoscopy recently with 3 polyps removed Seeing both nephrology and cardiology soon. He denies near syncope, syncope, chest pain, palpitations, PND, orthopnea or lower extremity edema. REVIEW OF SYSTEMS: MRC Dyspnea Scale: 5. Too breathless to leave the house, or breathless when dressing or undressing Otherwise, all others per history of present illness or negative on detailed 14 point review. PAST MEDICAL HISTORY Diagnosis Date Acute, but ill-defined, cerebrovascular disease 09/04 L hemispheric Arrhythmia Atherosclerosis of renal artery (HCC) Atrial fib/flutter, transient Atrial flutter 08/30/12 CAD (coronary atherosclerotic disease) CHRONIC KIDNEY DISEASE, STAGE III (MOD) 11/13/2007 Diarrhea Diverticulosis of colon (without mention of hemorrhage) Essential hypertension, benign Impaired fasting glucose 04/23/2007 Internal hemorrhoids without mention of complication Occlusion and stenosis of carotid artery without mention of cerebral infarction LEFT On home oxygen therapy since June 2019 Other and unspecified hyperlipidemia Peripheral vascular disease (HCC) Stents in L carotid, L renal artery, and B iliacs; R Cebul Stroke (HCC) TIAs. last occurrence 2003 PAST SURGICAL HISTORY Procedure Laterality Date ARTHRP KNE CONDYLE&PLATU MEDIAL&LAT COMPARTMENTS [id number] Dr Eber Drew BYP OTH/THN VEIN COMMON-IPSILATERAL CAROTID 10/05 L Carotid endovasc Endarectomy/stent CABG (4) VEIN GRAFTS & ARTERIAL GRAFT(S) 08/14/12 GARRETT to 1st Dx & LAD, Saph to OM and Post descending COLONOSCOPY FLX DX W/COLLJ SPEC WHEN PFRMD 08/12/2017 Colonoscopy COLONOSCOPY W/BIOPSY SINGLE/MULTIPLE 06/22/09 repeat due 2020 ENDOVASC TAA STENT REPAIR 11/06 L renal arteryangioplasty/stent ESOPHAGOGASTRODUODENOSCOPY TRANSORAL DIAGNOSTIC 08/12/2017 EGD EVASC PLACEMENT ILIAC ARTERY OCCLUSION DEVICE 01/05 bilat iliac angioplasty/stent RPR 1ST INGUN HRNA AGE 5 YRS/> REDUCIBLE Left RPR 1ST INGUN HRNA AGE 5 YRS/> REDUCIBLE 10/30/10 Right TEAEC W/PATCH GRF CAROTID VERTB SUBCLAV NECK INC Right 05/21/2016 XCAPSL CTRC RMVL INSJ IO LENS PROSTH W/O ECP Bilateral SOCIAL HISTORY: Social History Tobacco Use Smoking status: Former Types: Cigarettes, Cigars Quit date: 07/25/1982 Years since quittin.5 Smokeless tobacco: Never Tobacco comments: quit cigars Alcohol Use: Approximately 3.6 oz/week [which includes 6 Cans of Beer (12oz) per week] (OCCASIONALLY) Drug Use: No FAMILY HISTORY Problem Relation Age of Onset other (chf) Mother other (chf) Father Diabetes Brother x 2 Ischemic Heart Disease Son d. [place] Ischemic Heart Disease Son CABG Cancer Brother Diabetes Sister other (cabg) Brother x 2 ALLERGIES Allergen Reactions Dust Other: See Comments Mold Other: See Comments CURRENT MEDICATIONS pirfenidone (ESBRIET) 801 mg tablet^Take 1 tablet by mouth three times a day with meals.^Disp: 90 tablet^Rfl: 11 bumetanide (BUMEX) 1 mg tablet^Take 1 tablet by mouth twice daily Once a day^Disp: ^Rfl: doxazosin (CARDURA) 4 mg tablet^Take 4 mg by mouth daily at bedtime.^Disp: ^Rfl: lisinopril (ZESTRIL) 40 mg tablet^Take 40 mg by mouth once daily.^Disp: ^Rfl: sertraline (ZOLOFT) 50 mg tablet^^Disp: ^Rfl: doxazosin (CARDURA) 2 mg tablet^Take 2 mg by mouth daily at bedtime.^Disp: ^Rfl: amLODIPine (NORVASC) 10 mg tablet^^Disp: ^Rfl: ascorbic acid, vitamin C, (VITAMIN C) 500 mg tablet^Take 500 mg by mouth once daily.^Disp: ^Rfl: allopurinol (ZYLOPRIM) 100 mg tablet^Take 100 mg by mouth once daily.^Disp: ^Rfl: cetirizine HCl (ZYRTEC) 10 mg chewable tablet^Take 10 mg by mouth once daily.^Disp: ^Rfl: potassium chloride ER (K-DUR, KLOR-CON) 20 mEq tablet^Take 20 mEq by mouth twice daily.^Disp: ^Rfl: doxazosin (CARDURA) 8 mg tablet^Take 8 mg by mouth daily at bedtime.^Disp: ^Rfl: (Patient not taking: Reported on 07/25/2022) iv contrast (will be provided with radiology test)^CT Cardiac - No IV access, insert saline lock prior to the sedation, infusion, injection for imaging exam. Discontinue saline lock post exam. If Pt. has a central line or IVAD, may access for administration according to line specific nursing protocol. Once exam is complete flush line and de-access according to line specific nursing protocol in the CT contrast administration guidelines link.^Disp: 1 Each^Rfl: 0 bumetanide (BUMEX) 2 mg tablet^Take 1 mg by mouth once daily. ^Disp: ^Rfl: hydrALAZINE (APRESOLINE) 100 mg tablet^Take 100 mg by mouth three times daily.^Disp: ^Rfl: ezetimibe (ZETIA) 10 mg tablet^Take 1 tablet by mouth once daily.^Disp: 90 tablet^Rfl: 3 ferrous sulfate 325 mg (65 mg iron) tablet^Take 1 tablet by mouth twice daily with meals.^Disp: 60 tablet^Rfl: 5 nitroglycerin sublingual (NITROQUICK) 0.4 mg SL tablet^Dissolve 1 tablet under the tongue every 5 minutes as needed. FOR CHEST PAIN. IF NO RELIEF CALL 911^Disp: 1 Bottle of 25^Rfl: 5 carvedilol (COREG) 25 mg tablet^Take 25 mg by mouth twice daily with meals. ^Disp: ^Rfl: atorvastatin (LIPITOR) 80 mg tablet^Take 1 tablet by mouth once daily.^Disp: 90 tablet^Rfl: 3 ASPIRIN 81 MG TAB^Take one(1) tablet daily.^Disp: 30^Rfl: 0 MULTIVITAMIN ORAL TAB^Take one(1) tablet daily.^Disp: ^Rfl: 0 PHYSICAL EXAM: General: In no apparent distress BP 153/52 Pulse 65 Temp 36.9 C (98.5 F) (Temporal) Resp 16 Wt 69.9 kg (154 lb) SpO2 92% BMI 23.42 kg/m HEENT: shingles outbreak--dried scabs to left forehead, puffiness and redness of left eye and cheek Neck: Supple, without lymphadenopathy, thyromegaly or JVD Chest: bibasilar inspiratory crackles Cardiac: + 4/6 systolic murmur, Regular rate and rhythm Abdomen: Normal bowel sounds, soft, nontender, without hepatosplenomegaly Extremities: No clubbing, cyanosis or edema Musculoskeletal: No synovitis Skin: No rash or suspicious lesions of visualized exposed areas Neurologic: Nonfocal, strength 5/5 DATA REVIEWED (independently reviewed by myself) Laboratory Data Laboratory data reviewed in [facility] and [facility] Everywhere. DENIS No results found for: DENIS , ANAQL , ANAEIA Rheumatoid Factor No results found for: RF TSH TSH (uU/mL) Date Value 05/13/2012 2.050 HIV No results found for: HIVSCN , [id number] Hepatitis B Surface Antigen No results found for: HBSAGR Hepatitis C Hep C Antibody IA (no units) Date Value 10/10/2015 Negative NT PRO BNP Lab Results Component Value Date PBNP 2,737 (H) 07/11/2017 PBNP 4,574 (H) 07/01/2017 Chemistries Lab Results Component Value Date NA 138 11/24/2019 NA 140 10/03/2019 NA 143 09/28/2019 K 4.5 11/24/2019 K 3.5 (L) 10/03/2019 K 4.1 09/28/2019 CHLOR 106 11/24/2019 CHLOR 98 10/03/2019 CHLOR 101 09/28/2019 CO2 29 10/03/2019 CO2 28 09/28/2019 CO2 25 08/13/2019 BUN 71 (H) 10/03/2019 BUN 81 (H) 09/28/2019 BUN 54 (H) 08/13/2019 CREAT 1.67 (A) 11/24/2019 CREAT 2.05 (H) 10/03/2019 CREAT 2.19 (H) 09/28/2019 GLUC 116 (A) 11/24/2019 GLUC 91 10/03/2019 GLUC 93 09/28/2019 ANION 6 11/24/2019 ANION 13 10/03/2019 ANION 14 09/28/2019 Liver Function Lab Results Component Value Date AST 17 01/19/2019 AST 18 03/03/2018 AST 19 10/25/2016 ALT 9 (L) 01/19/2019 ALT 19 03/03/2018 ALT 14 06/12/2017 ALKPHOS 94 01/19/2019 ALKPHOS 90 03/03/2018 ALKPHOS 76 10/25/2016 TBILI 0.4 01/19/2019 TBILI 0.3 03/03/2018 TBILI 0.4 10/25/2016 CBC Lab Results Component Value Date HB 8.7 (L) 10/03/2019 HB 10.3 (L) 09/28/2019 HB 9.6 (L) 08/13/2019 HCT 27.5 (L) 10/03/2019 HCT 33.6 (L) 09/28/2019 HCT 32.2 (L) 08/13/2019 WBC 6.45 10/03/2019 WBC 7.42 09/28/2019 WBC 8.11 08/13/2019 PLT 173 10/03/2019 PLT 203 09/28/2019 PLT 203 08/13/2019 Pulmonary Function Data PFT available: Yes. PFT results mild restriction with severe diffusion impairment. Date FVC FEV1 FEV1/FVC TLC DLCO 07/25/2022 3.09/86 2.20/81 71 7.94/34 10/31/2022 2.45/71 1.79/70 73 6.03/26 02/05/2023 2.54/74 1.91/74 75 5.56/24 Ambulatory oximetry 09/11/2022 Oximetry with Ambulation Test for This Encounter O2 Device O2 Adapter NC O2 Flow SpO2% HR Activity Ft Walked (ft) Time (min) Avg Speed (MPH) R/A 86 69 Resting NC 2 96 61 Resting NC 2 88 75 Sit to stand NC 3 88 70 Resting NC 4 99 55 Resting NC 4 90 81 Walking, usual pace 305 3 1.16 Six minute walk Six minute walk available: No Radiology Data CT chest 05/12/2022 Probable UIP Echocardiogram Was an echo performed?: No 08/30/2022 Impression CONCLUSIONS: - Exam indication: Shortness of Breath - The left ventricle is mildly dilated. There is moderate concentric left ventricular hypertrophy. Left ventricular systolic function is normal. EF = 56 5% (2D biplane) Grade II left ventricular diastolic dysfunction. - The right ventricle is normal in size. Right ventricular systolic function is normal. - The left atrial cavity is severely dilated. - The right atrial cavity is mildly dilated. - There is moderate (2+) mitral valve regurgitation. Regurgitant orifice area (PISA) is 0.12 cm . - Estimated right ventricular systolic pressure is likely underestimated due to a weak or incomplete tricuspid regurgitation signal and is, at least, 60 mmHg consistent with moderate pulmonary hypertension. Estimated right atrial pressure is 3 mmHg based on IVC assessment. -Trivial-1+ TR, RVSP = 60 mmHg (eccentric jet) (prior 39 mmHg). -2+ MR - Exam was compared with the prior CC echocardiographic exam performed on 07/24/2017. Higher RVSP today, otherwise similar to prior exam. 07/24/2017 CONCLUSIONS: - Exam indication: CAD - The left ventricle is normal in size. There is mild concentric left ventricular hypertrophy. Left ventricular systolic function is normal. EF = 59 5% (2D biplane) Indeterminate left ventricular diastolic dysfunction. - The right ventricle is normal in size. Right ventricular systolic function is normal. - The left atrial cavity is mildly dilated. - Moderate AV thickening without stenosis. - Exam was compared with the prior CC echocardiographic exam performed on 06/18/2016, no significant change. Heart Catheterization Was a right heart catheterization performed?: No ASSESSMENT Ekta Zimmer is a 77 year old male with IPF with significant physiologic decline from July to October of 2022. He has severe grade 5 dyspnea, but feels stable to last appt. He is tolerating the pirfenidone well. He has grade II DD and CKD for which he is following with nephrology and cardiology. He had hospitalization with pneumonia in November for which he had full recovery. PFTs today are stable from last in October. PLAN Continue pirfenidone 801mg TID Pulmonary rehab--will send to [facility] pulm rehab in [place] fax [phone] Continue oxygen 4L continuous PH likely related to left heart (grade II DD on echo). 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. Follow-up March with Dr. Kimball All questions were answered to Ekta Chiang Zimmer's satisfaction, Ekta Chiang Mesha verbalizes understanding and agrees with treatment plan and was encouraged to contact me with questions Brittaney Villalba APRN.CNP I spent 40 minutes face to face with the patient. >50% of that time was spent counseling and coordinating care regarding interpretation of symptoms and tests and diagnostic and therapeutic options. All questions were answered to Ekta Zimmer's satisfaction, Ekta Vangs verbalizes understanding and agrees with treatment plan and was encouraged to contact me with questions This note was generated with voice recognition software and may contain errors, including spelling, grammar, syntax and misrecognition of what was dictated, that are not fully corrected. CC: PCP: Franky Lockhart MD documented in this encounter [facility] 02-05-2023 Note HNO ID: [id number] Author: Brittaney Villalba APRN.JEN Service: ? Author Type: Nurse Practitioner Type: Progress Notes Filed: 02/05/2023 4:52 PM Note Text: HISTORY OF PRESENT ILLNESS: Ekta Zimmer is a very pleasant 77 year old male who presents today for routine follow-up for idiopathic pulmonary fibrosis. Diagnosis based on CT chest with probable UIP and lack of other potential causes. He has had stable to mild progression from 2019 to 2022. He started pirfenidone in November 2022. Currently requires 3-4L oxygen. He has evidence of grade II DD and RVSP elevated at 60mmHg with normal RV size and function. Mr. Zimmer feels that his breathing is about the same, but he does feel significant dyspnea with exertion such as ADLs and showering. He taking the full dose of pirfenidone at 801mg TID. he is tolerating this very well with no side effects. He has been getting erythropoietin injections every week for anemia. He is exercising by walking more often, but has not been enrolled yet in pulmonary rehab. He is using 3L oxygen and his saturations have been in the 90s at all times. In November 2022, he was in [facility] for one week for pneumonia. He recovered fully from this. In the past couple days he has had an outbreak of Shingles on the left side of his face, and is currently on antiviral for 7 days. Had colonoscopy recently with 3 polyps removed Seeing both nephrology and cardiology soon. He denies near syncope, syncope, chest pain, palpitations, PND, orthopnea or lower extremity edema. REVIEW OF SYSTEMS: MRC Dyspnea Scale: 5. Too breathless to leave the house, or breathless when dressing or undressing Otherwise, all others per history of present illness or negative on detailed 14 point review. PAST MEDICAL HISTORY Diagnosis Date Acute, but ill-defined, cerebrovascular disease 09/04 L hemispheric Arrhythmia Atherosclerosis of renal artery (HCC) Atrial fib/flutter, transient Atrial flutter 08/30/12 CAD (coronary atherosclerotic disease) CHRONIC KIDNEY DISEASE, STAGE III (MOD) 11/13/2007 Diarrhea Diverticulosis of colon (without mention of hemorrhage) Essential hypertension, benign Impaired fasting glucose 04/23/2007 Internal hemorrhoids without mention of complication Occlusion and stenosis of carotid artery without mention of cerebral infarction LEFT On home oxygen therapy since June 2019 Other and unspecified hyperlipidemia Peripheral vascular disease (HCC) Stents in L carotid, L renal artery, and B iliacs; R Cebul Stroke (HCC) TIAs. last occurrence 2003 PAST SURGICAL HISTORY Procedure Later[facility] [id number] Dr Eber Drew BYP OTH/THN VEIN COMMON-IPSILATERAL CAROTID 10/05 L Carotid endovasc Endarectomy/stent CABG (4) VEIN GRAFTS AND ARTERIAL GRAFT(S) 08/14/12 GARRETT to 1st Dx AND LAD, Saph to OM and Post descending COLONOSCOPY FLX DX W/COLLJ SPEC WHEN PFRMD 08/12/2017 Colonoscopy COLONOSCOPY W/BIOPSY SINGLE/MULTIPLE 06/22/09 repeat due 2019 ENDOVASC TAA STENT REPAIR 11/06 L renal arteryangioplasty/stent ESOPHAGOGASTRODUODENOSCOPY TRANSORAL DIAGNOSTIC 08/12/2017 EGD EVASC PLACEMENT ILIAC ARTERY OCCLUSION DEVICE 01/05 bilat iliac angioplasty/stent RPR 1ST INGUN HRNA AGE 5 YRS/> REDUCIBLE Left RPR 1ST INGUN HRNA AGE 5 YRS/> REDUCIBLE 10/30/10 Right TEAEC W/PATCH GRF CAROTID VERTB SUBCLAV NECK INC Right 05/21/2016 XCAPSL CTRC RMVL INSJ IO LENS PROSTH W/O ECP Bilateral SOCIAL HISTORY: Social History Tobacco Use Smoking status: Former Types: Cigarettes, Cigars Quit date: 07/25/1982 Years since quittin.5 Smokeless tobacco: Never Tobacco comments: quit cigars Alcohol Use: Approximately 3.6 oz/week [which includes 6 Cans of Beer (12oz) per week] (OCCASIONALLY) Drug Use: No FAMILY HISTORY Problem Relation Age of Onset other (chf) Mother other (chf) Father Diabetes Brother x 2 Ischemic Heart Disease Son d. [place] Ischemic Heart Disease Son CABG Cancer Brother Diabetes Sister other (cabg) Brother x 2 ALLERGIES Allergen Reactions Dust Other: See Comments Mold Other: See Comments CURRENT MEDICATIONS pirfenidone (ESBRIET) 801 mg tabletTake 1 tablet by mouth three times a day with meals.Disp: 90 tabletRfl: 11 bumetanide (BUMEX) 1 mg tabletTake 1 tablet by mouth twice daily Once a dayDisp: Rfl: doxazosin (CARDURA) 4 mg tabletTake 4 mg by mouth daily at bedtime.Disp: Rfl: lisinopril (ZESTRIL) 40 mg tabletTake 40 mg by mouth once daily.Disp: Rfl: sertraline (ZOLOFT) 50 mg tabletDisp: Rfl: doxazosin (CARDURA) 2 mg tabletTake 2 mg by mouth daily at bedtime.Disp: Rfl: amLODIPine (NORVASC) 10 mg tabletDisp: Rfl: ascorbic acid, vitamin C, (VITAMIN C) 500 mg tabletTake 500 mg by mouth once daily.Disp: Rfl: allopurinol (ZYLOPRIM) 100 mg tabletTake 100 mg by mouth once daily.Disp: Rfl: cetirizine HCl (ZYRTEC) 10 mg chewable t (more content not included)... [facility] 02-05-2023 Note HNO ID: [id number] Author: Karena Oden RRT Service: ? Author Type: Registered Resp Therapist Type: Progress Notes Filed: 02/05/2023 1:45 PM Note Text: PULM FUNCTION SMARTBLOCK: Provider: Brittaney Villalba APRN.TURPENTINE FARMER Spirometry: 1 DLCO: 1 [facility] 02-05-2023 History of Present illness Narrative PULM FUNCTION SMARTBLOCK: Provider: Brittaney Villalba APRN.CNP Spirometry: 1 DLCO: 1 documented in this encounter [facility] 12-17-2022 History of Present illness Narrative VIRTUAL VISIT PROGRESS NOTE This is a virtual visit using [employer] Video Visit. It required patient-provider interaction for the medical decision making as documented below. I have communicated my name and active licensure. The patient's identity and physical location were verified at the time of this visit. Either the patient or their legal account maintenance representative has been informed of the risks and benefits of -- and alternatives to -- treatment through a remote evaluation and consents to proceed with the evaluation remotely. Ekta Zimmer is a 77 year old male seen for idiopathic pulmonary fibrosis. He returns for evaluation of idiopathic pulmonary fibrosis. Diagnosis based on CT chest with probably UIP and lack of other potential causes. He has had stable to mild progression from 2019 to 2022. He started pirfenidone in November 2022. Currently requires 4L oxygen. He has evidence of grade II DD and RVSP elevated at 60mmHg with normal RV size and function. He has been getting erythropoietin injections every week for anemia. He is exercising by walking more often. He is using 3L oxygen and his saturations have been in the 90s at all times. He feels that his breathing is in fact a little better, and walking outside in the fresh air is helpful. He is now on the full dose of pirfenidone at 801mg TID. he is tolerating this very well with no side effects. HISTORY REVIEWED (electronic chart updated): PAST MEDICAL HISTORY Diagnosis Date Acute, but ill-defined, cerebrovascular disease 09/04 L hemispheric Arrhythmia Atherosclerosis of renal artery (HCC) Atrial fib/flutter, transient Atrial flutter 08/30/12 CAD (coronary atherosclerotic disease) CHRONIC KIDNEY DISEASE, STAGE III (MOD) 11/13/2007 Diarrhea Diverticulosis of colon (without mention of hemorrhage) Essential hypertension, benign Impaired fasting glucose 04/23/2007 Internal hemorrhoids without mention of complication Occlusion and stenosis of carotid artery without mention of cerebral infarction LEFT On home oxygen therapy since June 2019 Other and unspecified hyperlipidemia Peripheral vascular disease (HCC) Stents in L carotid, L renal artery, and B iliacs; R Cebul Stroke (HCC) TIAs. last occurrence 2003 PAST SURGICAL HISTORY Procedure Laterality Date ARTHRP KNE CONDYLE&PLATU MEDIAL&LAT COMPARTMENTS [id number] Dr Eber Drew BYP OTH/THN VEIN COMMON-IPSILATERAL CAROTID 10/05 L Carotid endovasc Endarectomy/stent CABG (4) VEIN GRAFTS & ARTERIAL GRAFT(S) 08/14/12 GARRETT to 1st Dx & LAD, Saph to OM and Post descending COLONOSCOPY FLX DX W/COLLJ SPEC WHEN PFRMD 08/12/2017 Colonoscopy COLONOSCOPY W/BIOPSY SINGLE/MULTIPLE 06/22/09 repeat due 2019 ENDOVASC TAA STENT REPAIR 11/06 L renal arteryangioplasty/stent ESOPHAGOGASTRODUODENOSCOPY TRANSORAL DIAGNOSTIC 08/12/2017 EGD EVASC PLACEMENT ILIAC ARTERY OCCLUSION DEVICE 01/05 bilat iliac angioplasty/stent RPR 1ST INGUN HRNA AGE 5 YRS/> REDUCIBLE Left RPR 1ST INGUN HRNA AGE 5 YRS/> REDUCIBLE 10/30/10 Right TEAEC W/PATCH GRF CAROTID VERTB SUBCLAV NECK INC Right 05/21/2016 XCAPSL CTRC RMVL INSJ IO LENS PROSTH W/O ECP Bilateral FAMILY HISTORY Problem Relation Age of Onset other (chf) Mother other (chf) Father Diabetes Brother x 2 Ischemic Heart Disease Son d. [place] Ischemic Heart Disease Son CABG Cancer Brother Diabetes Sister other (cabg) Brother x 2 Social History Tobacco Use Smoking status: Former Types: Cigarettes, Cigars Quit date: 07/25/1982 Years since quittin.4 Smokeless tobacco: Never Tobacco comments: quit cigars Substance Use Topics Alcohol use: Yes Alcohol/week: 15.0 standard drinks of alcohol Types: 6 Cans of Beer (12oz) per week Comment: OCCASIONALLY Drug use: No Current Outpatient Medications Medication Sig allopurinol (ZYLOPRIM) 100 mg tablet Take 100 mg by mouth once daily. amLODIPine (NORVASC) 10 mg tablet ascorbic acid, vitamin C, (VITAMIN C) 500 mg tablet Take 500 mg by mouth once daily. ASPIRIN 81 MG TAB Take one(1) tablet daily. atorvastatin (LIPITOR) 80 mg tablet Take 1 tablet by mouth once daily. bumetanide (BUMEX) 1 mg tablet Take 1 tablet by mouth twice daily Once a day bumetanide (BUMEX) 2 mg tablet Take 1 mg by mouth once daily. carvedilol (COREG) 25 mg tablet Take 25 mg by mouth twice daily with meals. cetirizine HCl (ZYRTEC) 10 mg chewable tablet Take 10 mg by mouth once daily. doxazosin (CARDURA) 2 mg tablet Take 2 mg by mouth daily at bedtime. doxazosin (CARDURA) 4 mg tablet Take 4 mg by mouth daily at bedtime. doxazosin (CARDURA) 8 mg tablet Take 8 mg by mouth daily at bedtime. (Patient not taking: Reported on 07/25/2022) ezetimibe (ZETIA) 10 mg tablet Take 1 tablet by mouth once daily. ferrous sulfate 325 mg (65 mg iron) tablet Take 1 tablet by mouth twice daily with meals. hydrALAZINE (APRESOLINE) 100 mg tablet Take 100 mg by mouth three times daily. iv contrast (will be provided with radiology test) CT Cardiac - No IV access, insert saline lock prior to the sedation, infusion, injection for imaging exam. Discontinue saline lock post exam. If Pt. has a central line or IVAD, may access for administration according to line specific nursing protocol. Once exam is complete flush line and de-access according to line specific nursing protocol in the CT contrast administration guidelines link. lisinopril (ZESTRIL) 40 mg tablet Take 40 mg by mouth once daily. MULTIVITAMIN ORAL TAB Take one(1) tablet daily. nitroglycerin sublingual (NITROQUICK) 0.4 mg SL tablet Dissolve 1 tablet under the tongue every 5 minutes as needed. FOR CHEST PAIN. IF NO RELIEF CALL 911 pirfenidone (ESBRIET) 267 mg capsule Take 1 capsule by mouth three times daily for 7 days, THEN 2 capsules three times daily for 7 days, THEN 3 capsules three times daily. pirfenidone (ESBRIET) 267 mg capsule Take 3 capsules by mouth three times daily. potassium chloride ER (K-DUR, KLOR-CON) 20 mEq tablet Take 20 mEq by mouth twice daily. sertraline (ZOLOFT) 50 mg tablet Current Facility-Administered Medications Medication Dose Route Frequency perflutren lipid microspheres 1.3 mL in NaCl (PF) 0.9% 10 mL injection (DEFINITY) INTRAVENOUS DIRECTED PRN sodium chloride 0.9 % (flush) 10 mL (BD POSIFLUSH) 10 mL INTRAVENOUS DIRECTED PRN ALLERGIES Allergen Reactions Dust Other: See Comments Mold Other: See Comments REVIEW OF SYSTEMS: GENERAL: feeling well without fatigue, no recent change in weight, no fever As noted in HPI PHYSICAL EXAMINATION: VIDEO EXAM: (if completed, performed via video enabled technology) GENERAL: alert and appropriate, in no distress, well-hydrated, well nourished, and happy, smiling, interactive HEAD: normocephalic, no abnormality or lesion noted RESPIRATORY: breathing non-labored CHEST: equal chest rise with normal respiratory effort NEUROLOGIC: no obvious deficit Pulmonary Function Data PFT available: Yes. PFT results mild restriction with severe diffusion impairment. Significant decline from last testing. Date FVC FEV1 FEV1/FVC TLC DLCO 07/25/2022 3.09/86 2.20/81 71 7.94/34 10/31/2022 2.45/71 1.79/[address] chest 05/12/2022 Probable UIP Echocardiogram Was an echo performed?: Yes 08/30/2022 Impression CONCLUSIONS: - Exam indication: Shortness of Breath - The left ventricle is mildly dilated. There is moderate concentric left ventricular hypertrophy. Left ventricular systolic function is normal. EF = 56 5% (2D biplane) Grade II left ventricular diastolic dysfunction. - The right ventricle is normal in size. Right ventricular systolic function is normal. - The left atrial cavity is severely dilated. - The right atrial cavity is mildly dilated. - There is moderate (2+) mitral valve regurgitation. Regurgitant orifice area (PISA) is 0.12 cm . - Estimated right ventricular systolic pressure is likely underestimated due to a weak or incomplete tricuspid regurgitation signal and is, at least, 60 mmHg consistent with moderate pulmonary hypertension. Estimated right atrial pressure is 3 mmHg based on IVC assessment. -Trivial-1+ TR, RVSP = 60 mmHg (eccentric jet) (prior 39 mmHg). -2+ MR - Exam was compared with the prior CC echocardiographic exam performed on 07/24/2017. Higher RVSP today, otherwise similar to prior exam. 07/24/2017 CONCLUSIONS: - Exam indication: CAD - The left ventricle is normal in size. There is mild concentric left ventricular hypertrophy. Left ventricular systolic function is normal. EF = 59 5% (2D biplane) Indeterminate left ventricular diastolic dysfunction. - The right ventricle is normal in size. Right ventricular systolic function is normal. - The left atrial cavity is mildly dilated. - Moderate AV thickening without stenosis. - Exam was compared with the prior echocardiographic exam performed on 06/18/2016, no significant change. Heart Catheterization Was a right heart catheterization performed?: No Ambulatory oximetry 09/11/2022 Oximetry with Ambulation Test for This Encounter O2 Device O2 Adapter NC O2 Flow SpO2% HR Activity Ft Walked (ft) Time (min) Avg Speed (MPH) R/A 86 69 Resting NC 2 96 61 Resting NC 2 88 75 Sit to stand NC 3 88 70 Resting NC 4 99 55 Resting NC 4 90 81 Walking, usual pace 305 3 1.16 ASSESSMENT: IPF. Feeling well and tolerating the pirfenidone at full dose of 801mg TID with no side effects. PLAN: Continue pirfenidone. Need liver function tests monthly x 3, then every 3 months. Will put in for the 801mg TID pill to Gold Continue oxygen 3L continue exercise. Will look in on the pulmonary rehab order and if this has been faxed. Return as scheduled in February There are no Patient Instructions on file for this visit. I spent a total of 30 minutes on the date of the service which included preparing to see the patient, [id number] patient care, completing clinical documentation, obtaining and/or reviewing separately obtained history, performing a medically appropriate examination, and counseling and educating the patient/family/caregiver Brittaney Villalba APRN.TURPENTINE FARMER documented in this encounter [facility] 11-14-2022 Miscellaneous Notes Received faxed PA approval from [employer] today 11/14/2022; Pirfenidone 267 mg tablets has been approved from 10/15/2022 to 11/14/2023. Received outlook message from Tay Lucio today 11/14/2022; per plan, PA was denied; plan can be reached @ ; contact patient insurance @ spoke with Ada(Rep); call transferred to ; call lost/dropped; contact Dhaval OCONNOR department @ spoke with ELVIN Castle; verbal PA done for Esbriet 267 mg; Esbriet 267 mg approved ;approved from 10/14/2022 to 11/14/2023; Ref/ . documented in this encounter [facility] 11-01-2022 Miscellaneous Notes Received message request from Fatuma Lucio with [employer] today 11/01/2022; New RX's needed for Pirfenidone; RX form complete signed and faxed today 11/01/2022; PA done thru [employer]eds today 11/01/2022; Marshall: [id number]; status outcome; unable to proceed prior PA done; noting PA done previously not by me; pending outcome status. documented in this encounter [facility] 10-31-2022 Instructions Brittaney Villalba APRN.TURPENTINE FARMER - 10/31/2022 3:38 PM EDT You have pulmonary fibrosis, which means that there is scar tissue in the lungs. When there is scar tissue in the lungs, the lungs can't expand as fully and the oxygen exchange from the lung to the blood is impaired. This can make you feel short of breath, cause cough, and lead to a decrease in oxygen levels in the blood requiring that you wear oxygen. Unfortunately, lung scarring generally gets worse over time. We have two medications available which decrease the progression of the scarring in the lung. They do not take the scarring away and they do not stop the scarring process completely. Therefore, you will not feel improvement in your symptoms on these medications. The hope is that they keep you from getting worse or prevent getting worse at a fast rate. The two medications and their most common side effects I will list below. Both are as effective as each other in trials, and so we do not recommend one over the other due to effectiveness. Both medications require that you have blood work before starting the medication, then monthly x 3 months, then every 3 months thereafter. Both of these medications are sent through a mail specialty pharmacy. The actual prieto tag of these medications is high, but insurances cover it and there are dominic foundations such that most patients have no cost for the meds. Pirfenidone (Esbriet)-this medication is taken three times daily with food. It gets titrated up to a full dose of 3 pills three times daily, and there is a 1 pill three times daily formulation that you can switch to once you are tolerating the full dosing. You DO have to take this medication with food. The most common side effects are reflux/heartburn, stomach upset and sometimes nausea. This medication can also occasionally cause sun sensitivity (basically can cause a sun burn). You will need to avoid direct sun as much as possible and wear SPF 50 or long sleeves/hat, etc when outdoors. Nintedanib (OFEV)-this medication is taken as one pill twice daily. You should also take this with food, but it is not quite as important as with the esbriet. The most common side effect is diarrhea. Sometimes people do have to take an anti-diarrheal with this medication to decrease the diarrhea. It also can cause some increase risk in bleeding, and there has been some thought from the trials that this can cause a very slight increase risk for things like stroke and heart attack. Our team at the [facility] do not think this is a truly high risk, but you should know about this. documented in this encounter [facility] 10-31-2022 History of Present illness Narrative HISTORY OF PRESENT ILLNESS: Ekta Zimmer is a very pleasant 77 year old male who presents today for routine follow-up for idiopathic pulmonary fibrosis. He was seen by Dr. Kimball in consult on 07/25/2022 He returns for evaluation of idiopathic pulmonary fibrosis. Diagnosis based on CT chest with probably UIP and lack of other potential causes. He has had stable to mild progression from 2019 to 2022. Mr. Zimmer has been a very active person, but is now more limited in his activity by shortness of breath. He states that his saturations decrease with exertion on 4L oxygen to the 70s with more heavy activity. No significant cough. He is not on antifibrotic. Currently requires 4L oxygen. He has evidence of grade II DD and RVSP elevated at 60mmHg with normal RV size and function. He denies near syncope, syncope, chest pain, palpitations, PND, orthopnea or lower extremity edema. He has a significant heart and vascular history: CAD with CABG x 4, PVD, pAF, renal artery stenosis, carotid stenosis, iliac stenosis REVIEW OF SYSTEMS: MRC Dyspnea Scale: 4. Stops for breath after about 100 m or after a few minutes on the level Otherwise, all others per history of present illness or negative on detailed 14 point review. PAST MEDICAL HISTORY Diagnosis Date Acute, but ill-defined, cerebrovascular disease 09/04 L hemispheric Arrhythmia Atherosclerosis of renal artery (HCC) Atrial fib/flutter, transient Atrial flutter 08/30/12 CAD (coronary atherosclerotic disease) CHRONIC KIDNEY DISEASE, STAGE III (MOD) 11/13/2007 Diarrhea Diverticulosis of colon (without mention of hemorrhage) Essential hypertension, benign Impaired fasting glucose 04/23/2007 Internal hemorrhoids without mention of complication Occlusion and stenosis of carotid artery without mention of cerebral infarction LEFT On home oxygen therapy since June 2019 Other and unspecified hyperlipidemia Peripheral vascular disease (HCC) Stents in L carotid, L renal artery, and B iliacs; R Cebul Stroke (HCC) TIAs. last occurrence 2003 PAST SURGICAL HISTORY Procedure Laterality Date ARTHRP KNE CONDYLE&PLATU MEDIAL&LAT COMPARTMENTS [id number] Dr Eber Drew BYP OTH/THN VEIN COMMON-IPSILATERAL CAROTID 10/05 L Carotid endovasc Endarectomy/stent CABG (4) VEIN GRAFTS & ARTERIAL GRAFT(S) 08/14/12 GARRETT to 1st Dx & LAD, Saph to OM and Post descending COLONOSCOPY FLX DX W/COLLJ SPEC WHEN PFRMD 08/12/2017 Colonoscopy COLONOSCOPY W/BIOPSY SINGLE/MULTIPLE 06/22/09 repeat due 2019 ENDOVASC TAA STENT REPAIR 11/06 L renal arteryangioplasty/stent ESOPHAGOGASTRODUODENOSCOPY TRANSORAL DIAGNOSTIC 08/12/2017 EGD EVASC PLACEMENT ILIAC ARTERY OCCLUSION DEVICE 01/05 bilat iliac angioplasty/stent RPR 1ST INGUN HRNA AGE 5 YRS/> REDUCIBLE Left RPR 1ST INGUN HRNA AGE 5 YRS/> REDUCIBLE 10/30/10 Right TEAEC W/PATCH GRF CAROTID VERTB SUBCLAV NECK INC Right 05/21/2016 XCAPSL CTRC RMVL INSJ IO LENS PROSTH W/O ECP Bilateral SOCIAL HISTORY: Social History Tobacco Use Smoking status: Former Types: Cigarettes, Cigars Quit date: 07/25/1982 Years since quittin.2 Smokeless tobacco: Never Tobacco comments: quit cigars Alcohol Use: Approximately 9 oz/week [which includes 6 Cans of Beer (12oz) per week] (OCCASIONALLY) Drug Use: No FAMILY HISTORY Problem Relation Age of Onset other (chf) Mother other (chf) Father Diabetes Brother x 2 Ischemic Heart Disease Son d. [place] Ischemic Heart Disease Son CABG Cancer Brother Diabetes Sister other (cabg) Brother x 2 ALLERGIES Allergen Reactions Dust Other: See Comments Mold Other: See Comments CURRENT MEDICATIONS lisinopril (ZESTRIL) 40 mg tablet^Take 40 mg by mouth once daily.^Disp: ^Rfl: sertraline (ZOLOFT) 50 mg tablet^^Disp: ^Rfl: doxazosin (CARDURA) 2 mg tablet^Take 2 mg by mouth daily at bedtime.^Disp: ^Rfl: amLODIPine (NORVASC) 10 mg tablet^^Disp: ^Rfl: ascorbic acid, vitamin C, (VITAMIN C) 500 mg tablet^Take 500 mg by mouth once daily.^Disp: ^Rfl: allopurinol (ZYLOPRIM) 100 mg tablet^Take 100 mg by mouth once daily.^Disp: ^Rfl: cetirizine HCl (ZYRTEC) 10 mg chewable tablet^Take 10 mg by mouth once daily.^Disp: ^Rfl: potassium chloride ER (K-DUR, KLOR-CON) 20 mEq tablet^Take 20 mEq by mouth twice daily.^Disp: ^Rfl: doxazosin (CARDURA) 8 mg tablet^Take 8 mg by mouth daily at bedtime.^Disp: ^Rfl: (Patient not taking: Reported on 07/25/2022) iv contrast (will be provided with radiology test)^CT Cardiac - No IV access, insert saline lock prior to the sedation, infusion, injection for imaging exam. Discontinue saline lock post exam. If Pt. has a central line or IVAD, may access for administration according to line specific nursing protocol. Once exam is complete flush line and de-access according to line specific nursing protocol in the CT contrast administration guidelines link.^Disp: 1 Each^Rfl: 0 bumetanide (BUMEX) 2 mg tablet^Take 1 mg by mouth once daily. ^Disp: ^Rfl: hydrALAZINE (APRESOLINE) 100 mg tablet^Take 100 mg by mouth three times daily.^Disp: ^Rfl: ezetimibe (ZETIA) 10 mg tablet^Take 1 tablet by mouth once daily.^Disp: 90 tablet^Rfl: 3 ferrous sulfate 325 mg (65 mg iron) tablet^Take 1 tablet by mouth twice daily with meals.^Disp: 60 tablet^Rfl: 5 nitroglycerin sublingual (NITROQUICK) 0.4 mg SL tablet^Dissolve 1 tablet under the tongue every 5 minutes as needed. FOR CHEST PAIN. IF NO RELIEF CALL 911^Disp: 1 Bottle of 25^Rfl: 5 carvedilol (COREG) 25 mg tablet^Take 25 mg by mouth twice daily with meals. ^Disp: ^Rfl: atorvastatin (LIPITOR) 80 mg tablet^Take 1 tablet by mouth once daily.^Disp: 90 tablet^Rfl: 3 ASPIRIN 81 MG TAB^Take one(1) tablet daily.^Disp: 30^Rfl: 0 MULTIVITAMIN ORAL TAB^Take one(1) tablet daily.^Disp: ^Rfl: 0 PHYSICAL EXAM: General: In no apparent distress BP (!) 173/41 Pulse (!) 58 Temp 36.9 C (98.4 F) (Temporal) Resp 16 Wt 69.3 kg (152 lb 12.5 oz) SpO2 99% BMI 23.23 kg/m HEENT: Unremarkable; Neck: Supple, without lymphadenopathy, thyromegaly or JVD Chest: bibasilar inspiratory crackles Cardiac: + 4/6 systolic murmur, Regular rate and rhythm Abdomen: Normal bowel sounds, soft, nontender, without hepatosplenomegaly Extremities: No clubbing, cyanosis or edema Musculoskeletal: No synovitis Skin: No rash or suspicious lesions of visualized exposed areas Neurologic: Nonfocal, strength 5/5 DATA REVIEWED (independently reviewed by myself) Laboratory Data Laboratory data reviewed in [facility] Everywhere. DENIS No results found for: DENIS , ANAQL , ANAEIA Rheumatoid Factor No results found for: RF TSH TSH (uU/mL) Date Value 05/13/2012 2.050 HIV No results found for: HIVSCN , [id number] Hepatitis B Surface Antigen No results found for: HBSAGR Hepatitis C Hep C Antibody IA (no units) Date Value 10/10/2015 Negative NT PRO BNP Lab Results Component Value Date PBNP 2,737 (H) 07/11/2017 PBNP 4,574 (H) 07/01/2017 Chemistries Lab Results Component Value Date NA 138 11/24/2019 NA 140 10/03/2019 NA 143 09/28/2019 K 4.5 11/24/2019 K 3.5 (L) 10/03/2019 K 4.1 09/28/2019 CHLOR 106 11/24/2019 CHLOR 98 10/03/2019 CHLOR 101 09/28/2019 CO2 29 10/03/2019 CO2 28 09/28/2019 CO2 25 08/13/2019 BUN 71 (H) 10/03/2019 BUN 81 (H) 09/28/2019 BUN 54 (H) 08/13/2019 CREAT 1.67 (A) 11/24/2019 CREAT 2.05 (H) 10/03/2019 CREAT 2.19 (H) 09/28/2019 GLUC 116 (A) 11/24/2019 GLUC 91 10/03/2019 GLUC 93 09/28/2019 ANION 6 11/24/2019 ANION 13 10/03/2019 ANION 14 09/28/2019 Liver Function Lab Results Component Value Date AST 17 01/19/2019 AST 18 03/03/2018 AST 19 10/25/2016 ALT 9 (L) 01/19/2019 ALT 19 03/03/2018 ALT 14 06/12/2017 ALKPHOS 94 01/19/2019 ALKPHOS 90 03/03/2018 ALKPHOS 76 10/25/2016 TBILI 0.4 01/19/2019 TBILI 0.3 03/03/2018 TBILI 0.4 10/25/2016 CBC Lab Results Component Value Date HB 8.7 (L) 10/03/2019 HB 10.3 (L) 09/28/2019 HB 9.6 (L) 08/13/2019 HCT 27.5 (L) 10/03/2019 HCT 33.6 (L) 09/28/2019 HCT 32.2 (L) 08/13/2019 WBC 6.45 10/03/2019 WBC 7.42 09/28/2019 WBC 8.11 08/13/2019 PLT 173 10/03/2019 PLT 203 09/28/2019 PLT 203 08/13/2019 Pulmonary Function Data PFT available: Yes. PFT results mild restriction with severe diffusion impairment. Significant decline from last testing. Date FVC FEV1 FEV1/FVC TLC DLCO 07/25/2022 3.09/86 2.20/81 71 7.94/34 10/31/2022 2.45/71 1.79/70 73 6.03/26 Ambulatory oximetry 09/11/2022 Oximetry with Ambulation Test for This Encounter O2 Device O2 Adapter NC O2 Flow SpO2% HR Activity Ft Walked (ft) Time (min) Avg Speed (MPH) R/A 86 69 Resting NC 2 96 61 Resting NC 2 88 75 Sit to stand NC 3 88 70 Resting NC 4 99 55 Resting NC 4 90 81 Walking, usual pace 305 3 1.16 Six minute walk Six minute walk available: No Radiology Data CT chest 05/12/2022 Probable UIP Echocardiogram Was an echo performed?: Yes 08/30/2022 Impression CONCLUSIONS: - Exam indication: Shortness of Breath - The left ventricle is mildly dilated. There is moderate concentric left ventricular hypertrophy. Left ventricular systolic function is normal. EF = 56 5% (2D biplane) Grade II left ventricular diastolic dysfunction. - The right ventricle is normal in size. Right ventricular systolic function is normal. - The left atrial cavity is severely dilated. - The right atrial cavity is mildly dilated. - There is moderate (2+) mitral valve regurgitation. Regurgitant orifice area (PISA) is 0.12 cm . - Estimated right ventricular systolic pressure is likely underestimated due to a weak or incomplete tricuspid regurgitation signal and is, at least, 60 mmHg consistent with moderate pulmonary hypertension. Estimated right atrial pressure is 3 mmHg based on IVC assessment. -Trivial-1+ TR, RVSP = 60 mmHg (eccentric jet) (prior 39 mmHg). -2+ MR - Exam was compared with the prior CC echocardiographic exam performed on 07/24/2017. Higher RVSP today, otherwise similar to prior exam. 07/24/2017 CONCLUSIONS: - Exam indication: CAD - The left ventricle is normal in size. There is mild concentric left ventricular hypertrophy. Left ventricular systolic function is normal. EF = 59 5% (2D biplane) Indeterminate left ventricular diastolic dysfunction. - The right ventricle is normal in size. Right ventricular systolic function is normal. - The left atrial cavity is mildly dilated. - Moderate AV thickening without stenosis. - Exam was compared with the prior echocardiographic exam performed on 06/18/2016, no significant change. 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 He has mMRC grade 4 dyspnea, chronic hypoxemic respiratory failure with need for 4L oxygen, and severe diffusion impairment. He has had significant decline in his FVC since last testing. Echo also shows evidence of elevated RVSP of 60mmHg, consistent with moderate pulmonary hypertension. RV function normal. Grade II DD. We discussed his diagnosis of IPF at length and the two antifibrotic medications. We also discussed possible RHC to assess for PH and use of inhaled treprostinil. PLAN -Start pirfenidone and titrate to 801mg TID with food. Hepatic function panel at baseline, monthly x 3, and every 3 months -Start pulmonary rehab -Continue oxygen 2L resting and 4L with exertion -RHC discussed to assess for presence, severity and category of PH, and possible qualification of inhaled treprostinil. May have combination of group 2 and 3 PH based on Echo. -He is unlikely to be a good transplant candidate based on his advanced age and vasculopathies. Follow-up 3 months with jackie, DLco and labs All questions were answered to Ekta Zimmer's satisfaction, Ekta Zimmer verbalizes understanding and agrees with treatment plan and was encouraged to contact me with questions Brittaney Villalba APRN.TURPENTINE FARMER I spent 67 minutes face to face with the patient. >50% of that time was spent counseling and coordinating care regarding interpretation of symptoms and tests and diagnostic and therapeutic options. All questions were answered to Ekta Zimmer's satisfaction, Ekta Zimmer verbalizes understanding and agrees with treatment plan and was encouraged to contact me with questions This note was generated with voice recognition software and may contain errors, including spelling, grammar, syntax and misrecognition of what was dictated, that are not fully corrected. INTERSTITIAL LUNG DISEASE DATABASE CHECKLIST Treating diagnosis: IPF: Idiopathic pulmonary fibrosis Biopsy confirmed?: No Was the patient discussed at a multidisciplinary discussion?: No Current ILD medications: No medication ILD medications at end of visit: Pirfenidone Is the patient being treated with oxygen therapy?: Yes- continuous Does the patient have pulmonary hypertension: Yes Is the patient being referred for transplantation?: No CC: PCP: Franky Lockhart MD Medical Decision Making: Level: 5 - High documented in this encounter [facility] 10-31-2022 History of Present illness Narrative Radiology Service Progress Note PATIENT NAME: Ekta Zimmer DATE OF SERVICE: October 31, 2022 TIME: 2:59 PM PATIENT IDENTITY VERIFICATION COMPLETED USING TWO (2) IDENTIFIERS: Name and Date of confirmed by patient verbally. FALL SCREENING: Has the patient had 2 falls in the last year or 1 fall with injury or currently using an Ambulatory Assistive Device (Walker, Cane, Wheelchair, Crutches, etc.)? Yes, Patient High Risk for Falls What interventions were put in place to prevent falls during this visit? Yellow Falls Risk Wristband Applied PATIENT GENDER DATA: Male PATIENT RELEVANT IMPLANT DATA REVIEWED: Not Applicable RADIOLOGY DEPARTMENT: General X-ray: Exam(s) Completed: Chest X-Ray PERIPHERAL IV DATA: Not applicable SIGNED BY: RT Susan(Dawna) October 31, 2022 2:59 PM documented in this encounter [facility] 09-12-2022 Miscellaneous Notes I spoke to Mr. Zimmer and Rita. Patient currently has oxygen from [employer]. Home oxygen concentrator and tanks. He has had for approximately 3 years. He purchased his own Inogen G4 POC, which has a pulse dose limit of 3. They want an Inogen G5 with a pulse setting of 6 pulse dose. I explained that [employer] may not provide this device and they would have to purchase it on their own. Patient is going to stop at [employer] to investigate. Rajendra Blackman RRT documented in this encounter [facility] 06-02-2022 History of Present illness Narrative PULM FUNCTION SMARTBLOCK: Provider: Timi Almaraz MD Oximetry - Ambulation: 1 documented in this encounter [facility] 06-02-2022 History of Present illness Narrative PULM FUNCTION SMARTBLOCK: Provider: Timi Morgan MD Oximetry - Ambulation: 1 documented in this encounter [facility] 06-02-2022 Procedure note Associated Ord er(s): OXIMETRY WITH AMBULATION RESPIRATORY THERAPY OXIMETRY WITH AMBULATION Oximetry with Ambulation Test for This Encounter O2 Device O2 Adapter NC O2 Flow SpO2% HR Activity Ft Walked (ft) Time (min) Avg Speed (MPH) R/A 93 71 Resting R/A 90 101 Walking, usual pace 510 3 1.93 R/A 93 73 Resting R/A 93 116 Walking, fastest pace 635 3 2.41 General Information Pulse Oximetry Site Total Time Spent O2 Supply Carrier Walking Assistance/Device Forehead 30 -- None NAME: Cindy Ward RRT PATIENT NAME: Ekta Zimmer DATE: August 02, 2022 TIME: 7:57 AM Comment: documented in this encounter [facility] 06-02-2022 Procedure note Associated Ord er(s): OXIMETRY WITH AMBULATION RESPIRATORY THERAPY OXIMETRY WITH AMBULATION Oximetry with Ambulation Test for This Encounter O2 Device O2 Adapter NC O2 Flow SpO2% HR Activity Ft Walked (ft) Time (min) Avg Speed (MPH) R/A 86 69 Resting NC 2 96 61 Resting NC 2 88 75 Sit to stand NC 3 88 70 Resting NC 4 99 55 Resting NC 4 90 81 Walking, usual pace 305 3 1.16 General Information Pulse Oximetry Site Total Time Spent O2 Supply Carrier Walking Assistance/Device Forehead 30 3 Wheel Walker 3 Wheel Walker NAME: Cindy Ward RRT PATIENT NAME: Ekta Zimmer DATE: September 11, 2022 TIME: 1:48 PM Comment: documented in this encounter [facility] 05-22-2022 Miscellaneous Notes Summary: New ILD Interstitial Lung Disease Referral Intake Ekta Zimmer [id number] May 22, 2022 3:22 PM Schedulers: --Please schedule patient with any ILD provider --Testing needed: 1) Jackie 2) DLCO Consult information: Referred by: Dr. Ian Rogers Office name/city: [facility] Diagnosis: IPF CT chest: yes, requesting date of last: 05/12/2022 where was this performed?: [facility] Biopsy(Surgical or transbronchial): No type: date: where was this performed?: Current or past treatment (for the ILD diagnosis): None Have you ever been told that you have scleroderma? No Have you been told by your physician that your lung disease is due to an occupational or work exposure? No Have you ever been deployed? No *Please remember to give the authorization for release of medical records to your doctor(s), and also obtain your CT(s) on a disc from the radiology department and hand carry this to your appointment. 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 SVT (supraventricular tachycardia) 10/28/2012 08/12/2019 Inguinal pain 10/04/2012 10/13/2015 Inguinal hernia without ment ion of obstruction or gangrene, unilateral or unspecified, (not specified as recurrent) 10/30/2010 08/12/2019 HBP (high blood pressure) 07/20/20092015 Overview: 02/17/2014: Home BP Cuff Validated. 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 09/18/2005 Overview: LEFT Atherosclerosis of renal artery 11/21/2020 Overview: H: B/L renal artery severe stenosis and CKD A: s/p bilateral renal artery stenting P: ASA & Plavix, follow-up in 1 month w/ renal duplex Peripheral vascular disease 11/03 documented as of this encounter (statuses as of 05/22/2022) [facility] History of Past illness Narrative* Problem Noted Date Resolved Date 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 SVT (supraventricular tachycardia) 10/28/2012 08/12/2019 Inguinal pain 10/04/2012 10/13/2015 Inguinal hernia without ment ion of obstruction or gangrene, unilateral or unspecified, (not specified as recurrent) 10/30/2010 08/12/2019 HBP (high blood pressure) 07/20/20092015 Overview: 02/17/2014: Home BP Cuff Validated. 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 09/18/2005 Overview: LEFT Atherosclerosis of renal artery 11/21/2020 Overview: H: B/L renal artery severe stenosis and CKD A: s/p bilateral renal artery stenting P: ASA & Plavix, follow-up in 1 month w/ renal duplex Peripheral vascular disease 11/03 documented as of this encounter (statuses as of 08/02/2022) [facility] History of Past illness Narrative* Problem Noted Date Diagnosed Date Resolved Date 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 SVT (supraventricular tachycardia) 10/28/2012 08/12/2019 Inguinal pain 10/04/2012 10/13/2015 Inguinal hernia without ment ion of obstruction or gangrene, unilateral or unspecified, (not specified as recurrent) 10/30/2010 08/12/2019 HBP (high blood pressure) 07/20/2009 Overview: 02/17/2014: Home BP Cuff Validated. 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 0 09/18/2005 Overview: LEFT Atherosclerosis of renal artery 11/21/2020 Overview: H: B/L renal artery severe stenosis and CKD A: s/p bilateral renal artery stenting P: ASA & Plavix, follow-up in 1 month w/ renal duplex Peripheral vascular disease 11/21/2020 documented as of this encounter (statuses as of 09/12/2022) [facility] History of Past illness Narrative* Problem Noted Date Diagnosed Date Resolved Date 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 SVT (supraventricular tachycardia) 10/28/2012 08/12/2019 Inguinal pain 10/04/2012 10/13/2015 Inguinal hernia without ment ion of obstruction or gangrene, unilateral or unspecified, (not specified as recurrent) 10/30/2010 08/12/2019 HBP (high blood pressure) 07/20/2009 Overview: 02/17/2014: Home BP Cuff Validated. 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 0 09/18/2005 Overview: LEFT Atherosclerosis of renal artery 11/21/2020 Overview: H: B/L renal artery severe stenosis and CKD A: s/p bilateral renal artery stenting P: ASA & Plavix, follow-up in 1 month w/ renal duplex Peripheral vascular disease 11/21/2020 documented as of this encounter (statuses as of 09/12/2022) [facility] History of Past illness Narrative* Problem Noted Date Diagnosed Date Resolved Date 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 SVT (supraventricular tachycardia) 10/28/2012 08/12/2019 Inguinal pain 10/04/2012 10/13/2015 Inguinal hernia without ment ion of obstruction or gangrene, unilateral or unspecified, (not specified as recurrent) 10/30/2010 08/12/2019 HBP (high blood pressure) 07/20/2009 Overview: 02/17/2014: Home BP Cuff Validated. 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 0 09/18/2005 Overview: LEFT Atherosclerosis of renal artery 11/21/2020 Overview: H: B/L renal artery severe stenosis and CKD A: s/p bilateral renal artery stenting P: ASA & Plavix, follow-up in 1 month w/ renal duplex Peripheral vascular disease 11/21/2020 documented as of this encounter (statuses as of 09/12/2022) [facility] History of Past illness Narrative* Problem Noted Date Diagnosed Date Resolved Date 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 SVT (supraventricular tachycardia) 10/28/2012 08/12/2019 Inguinal pain 10/04/2012 10/13/2015 Inguinal hernia without ment ion of obstruction or gangrene, unilateral or unspecified, (not specified as recurrent) 10/30/2010 08/12/2019 HBP (high blood pressure) 07/20/2009 Overview: 02/17/2014: Home BP Cuff Validated. 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 0 09/18/2005 Overview: LEFT Atherosclerosis of renal artery 11/21/2020 Overview: H: B/L renal artery severe stenosis and CKD A: s/p bilateral renal artery stenting P: ASA & Plavix, follow-up in 1 month w/ renal duplex Peripheral vascular disease 11/21/2020 documented as of this encounter (statuses as of 09/14/2022) [facility] History of Past illness Narrative* Problem Noted Date Diagnosed Date Resolved Date 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 SVT (supraventricular tachycardia) 10/28/2012 08/12/2019 Inguinal pain 10/04/2012 10/13/2015 Inguinal hernia without ment ion of obstruction or gangrene, unilateral or unspecified, (not specified as recurrent) 10/30/2010 08/12/2019 HBP (high blood pressure) 07/20/2009 Overview: 02/17/2014: Home BP Cuff Validated. 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 0 09/18/2005 Overview: LEFT Atherosclerosis of renal artery 11/21/2020 Overview: H: B/L renal artery severe stenosis and CKD A: s/p bilateral renal artery stenting P: ASA & Plavix, follow-up in 1 month w/ renal duplex Peripheral vascular disease 11/21/2020 documented as of this encounter (statuses as of 10/31/2022) [facility] History of Past illness Narrative* Problem Noted Date Diagnosed Date Resolved Date 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 SVT (supraventricular tachycardia) 10/28/2012 08/12/2019 Inguinal pain 10/04/2012 10/13/2015 Inguinal hernia without ment ion of obstruction or gangrene, unilateral or unspecified, (not specified as recurrent) 10/30/2010 08/12/2019 HBP (high blood pressure) 07/20/2009 Overview: 02/17/2014: Home BP Cuff Validated. 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 0 09/18/2005 Overview: LEFT Atherosclerosis of renal artery 11/21/2020 Overview: H: B/L renal artery severe stenosis and CKD A: s/p bilateral renal artery stenting P: ASA & Plavix, follow-up in 1 month w/ renal duplex Peripheral vascular disease 11/21/2020 documented as of this encounter (statuses as of 11/01/2022) [facility] History of Past illness Narrative* Problem Noted Date Diagnosed Date Resolved Date 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 SVT (supraventricular tachycardia) 10/28/2012 08/12/2019 Inguinal pain 10/04/2012 10/13/2015 Inguinal hernia without ment ion of obstruction or gangrene, unilateral or unspecified, (not specified as recurrent) 10/30/2010 08/12/2019 HBP (high blood pressure) 07/20/2009 Overview: 02/17/2014: Home BP Cuff Validated. 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 0 09/18/2005 Overview: LEFT Atherosclerosis of renal artery 11/21/2020 Overview: H: B/L renal artery severe stenosis and CKD A: s/p bilateral renal artery stenting P: ASA & Plavix, follow-up in 1 month w/ renal duplex Peripheral vascular disease 11/21/2020 documented as of this encounter (statuses as of 11/01/2022) [facility] History of Past illness Narrative* Problem Noted Date Diagnosed Date Resolved Date Superior mesenteric artery stenosis 09/30/2019 11/21/2020 Chronic mesenteric ischemia 09/30/2019 11/21/2020 Overview: H: Recent weight loss A: 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 SVT (supraventricular tachycardia) 10/28/2012 08/12/2019 Inguinal pain 10/04/2012 10/13/2015 Inguinal hernia without ment ion of obstruction or gangrene, unilateral or unspecified, (not specified as recurrent) 10/30/2010 08/12/2019 HBP (high blood pressure) 07/20/2009 Overview: 02/17/2014: Home BP Cuff Validated. 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 0 09/18/2005 Overview: LEFT Atherosclerosis of renal artery 11/21/2020 Overview: H: B/L renal artery severe stenosis and CKD A: s/p bilateral renal artery stenting P: ASA & Plavix, follow-up in 1 month w/ renal duplex Peripheral vascular disease 11/21/2020 documented as of this encounter (statuses as of 11/01/2022) [facility] History of Past illness Narrative* Problem Noted Date Diagnosed Date Resolved Date Superior mesenteric artery stenosis 09/30/2019 11/21/2020 Chronic mesenteric ischemia 09/30/2019 11/21/2020 Overview: H: Recent weight loss A: 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 SVT (supraventricular tachycardia) 10/28/2012 08/12/2019 Inguinal pain 10/04/2012 10/13/2015 Inguinal hernia without ment ion of obstruction or gangrene, unilateral or unspecified, (not specified as recurrent) 10/30/2010 08/12/2019 HBP (high blood pressure) 07/20/2009 Overview: 02/17/2014: Home BP Cuff Validated. 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 0 09/18/2005 Overview: LEFT Atherosclerosis of renal artery 11/21/2020 Overview: H: B/L renal artery severe stenosis and CKD A: s/p bilateral renal artery stenting P: ASA & Plavix, follow-up in 1 month w/ renal duplex Peripheral vascular disease 11/21/2020 documented as of this encounter (statuses as of 11/01/2022) [facility] History of Past illness Narrative* Problem Noted Date Diagnosed Date Resolved Date Superior mesenteric artery stenosis 09/30/2019 11/21/2020 Chronic mesenteric ischemia 09/30/2019 11/21/2020 Overview: H: Recent weight loss A: 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 SVT (supraventricular tachycardia) 10/28/2012 08/12/2019 Inguinal pain 10/04/2012 10/13/2015 Inguinal hernia without ment ion of obstruction or gangrene, unilateral or unspecified, (not specified as recurrent) 10/30/2010 08/12/2019 HBP (high blood pressure) 07/20/2009 Overview: 02/17/2014: Home BP Cuff Validated. 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 0 09/18/2005 Overview: LEFT Atherosclerosis of renal artery 11/21/2020 Overview: H: B/L renal artery severe stenosis and CKD A: s/p bilateral renal artery stenting P: ASA & Plavix, follow-up in 1 month w/ renal duplex Peripheral vascular disease 11/21/2020 documented as of this encounter (statuses as of 11/15/2022) [facility] History of Past illness Narrative* Problem Noted Date Diagnosed Date Resolved Date Superior mesenteric artery stenosis 09/30/2019 11/21/2020 Chronic mesenteric ischemia 09/30/2019 11/21/2020 Overview: H: Recent weight loss A: 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 SVT (supraventricular tachycardia) 10/28/2012 08/12/2019 Inguinal pain 10/04/2012 10/13/2015 Inguinal hernia without ment ion of obstruction or gangrene, unilateral or unspecified, (not specified as recurrent) 10/30/2010 08/12/2019 HBP (high blood pressure) 07/20/2009 Overview: 02/17/2014: Home BP Cuff Validated. 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 0 09/18/2005 Overview: LEFT Atherosclerosis of renal artery 11/21/2020 Overview: H: B/L renal artery severe stenosis and CKD A: s/p bilateral renal artery stenting P: ASA & Plavix, follow-up in 1 month w/ renal duplex Peripheral vascular disease 11/21/2020 documented as of this encounter (statuses as of 12/17/2022) [facility] History of Past illness Narrative* Problem Noted Date Diagnosed Date Resolved Date Superior mesenteric artery stenosis 09/30/2019 11/21/2020 Chronic mesenteric ischemia 09/30/2019 11/21/2020 Overview: H: Recent weight loss A: 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 SVT (supraventricular tachycardia) 10/28/2012 08/12/2019 Inguinal pain 10/04/2012 10/13/2015 Inguinal hernia without ment ion of obstruction or gangrene, unilateral or unspecified, (not specified as recurrent) 10/30/2010 08/12/2019 HBP (high blood pressure) 07/20/2009 Overview: 02/17/2014: Home BP Cuff Validated. 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 0 09/18/2005 Overview: LEFT Atherosclerosis of renal artery 11/21/2020 Overview: H: B/L renal artery severe stenosis and CKD A: s/p bilateral renal artery stenting P: ASA & Plavix, follow-up in 1 month w/ renal duplex Peripheral vascular disease 11/21/2020 documented as of this encounter (statuses as of 02/05/2023) [facility] History of Past illness Narrative* Problem Noted Date Diagnosed Date Resolved Date Superior mesenteric artery stenosis 09/30/2019 11/21/2020 Chronic mesenteric ischemia 09/30/2019 11/21/2020 Overview: H: Recent weight loss A: 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 SVT (supraventricular tachycardia) 10/28/2012 08/12/2019 Inguinal pain 10/04/2012 10/13/2015 Inguinal hernia without ment ion of obstruction or gangrene, unilateral or unspecified, (not specified as recurrent) 10/30/2010 08/12/2019 HBP (high blood pressure) 07/20/2009 Overview: 02/17/2014: Home BP Cuff Validated. 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 0 09/18/2005 Overview: LEFT Atherosclerosis of renal artery 11/21/2020 Overview: H: B/L renal artery severe stenosis and CKD A: s/p bilateral renal artery stenting P: ASA & Plavix, follow-up in 1 month w/ renal duplex Peripheral vascular disease 11/21/2020 documented as of this encounter (statuses as of 02/06/2023) [facility] History of Past illness Narrative* Problem Noted Date Diagnosed Date Resolved Date Superior mesenteric artery stenosis 09/30/2019 11/21/2020 Chronic mesenteric ischemia 09/30/2019 11/21/2020 Overview: H: Recent weight loss A: 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 SVT (supraventricular tachycardia) 10/28/2012 08/12/2019 Inguinal pain 10/04/2012 10/13/2015 Inguinal hernia without ment ion of obstruction or gangrene, unilateral or unspecified, (not specified as recurrent) 10/30/2010 08/12/2019 HBP (high blood pressure) 07/20/2009 Overview: 02/17/2014: Home BP Cuff Validated. 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 0 09/18/2005 Overview: LEFT Atherosclerosis of renal artery 11/21/2020 Overview: H: B/L renal artery severe stenosis and CKD A: s/p bilateral renal artery stenting P: ASA & Plavix, follow-up in 1 month w/ renal duplex Peripheral vascular disease 11/21/2020 documented as of this encounter (statuses as of 04/26/2023) [facility] Diagnosis ILD (interstitial lung disease) (HCC)- Primary Postinflammatory pulmonary fibrosis [facility] Diagnosis ILD (interstitial lung disease) (HCC)- Primary Postinflammatory pulmonary fibrosis [facility] Diagnosis SOB (shortness of breath)- Primary Shortness of breath [facility] Diagnosis IPF (idiopathic pulmonary fibrosis) (HCC)- Primary Idiopathic pulmonary fibrosis [facility] Diagnosis ILD (interstitial lung disease) (HCC)- Primary Postinflammatory pulmonary fibrosis [facility] Diagnosis ILD (interstitial lung disease) (HCC) Postinflammatory pulmonary fibrosis [facility] Diagnosis IPF (idiopathic pulmonary fibrosis) (HCC)- Primary Idiopathic pulmonary fibrosis Chronic hypoxemic respiratory failure (HCC) Chronic respiratory failure High risk medication use Encounter for long-term (current) use of other medications SOB (shortness of breath) Shortness of breath Pulmonary HTN (HCC) Other chronic pulmonary heart diseases [facility] Diagnosis IPF (idiopathic pulmonary fibrosis) (HCC)- Primary Idiopathic pulmonary fibrosis [facility] Diagnosis IPF (idiopathic pulmonary fibrosis) (HCC)- Primary Idiopathic pulmonary fibrosis Chronic hypoxemic respiratory failure (HCC) Chronic respiratory failure High risk medication use Encounter for long-term (current) use of other medications [facility] Diagnosis IPF (idiopathic pulmonary fibrosis) (HCC)- Primary Idiopathic pulmonary fibrosis documented in this encounter [facility] note* Diagnosis IPF (idiopathic pulmonary fibrosis) (HCC)- Primary Idiopathic pulmonary fibrosis documented in this encounter [facility] note* Diagnosis IPF (idiopathic pulmonary fibrosis) (HCC)- Primary Idiopathic pulmonary fibrosis Chronic hypoxemic respiratory failure (HCC) Chronic respiratory failure High risk medication use Encounter for long-term (current) use of other medications Pulmonary HTN (HCC) Other chronic pulmonary heart diseases [facility] Diagnosis Interstitial pulmonary disease (HCC)- Primary Postinflammatory pulmonary fibrosis documented in this encounter [facility] note* Diagnosis Interstitial pulmonary disease (HCC)- Primary Postinflammatory pulmonary fibrosis documented in this encounter [facility] note* Diagnosis IPF (idiopathic pulmonary fibrosis) (HCC)- Primary Idiopathic pulmonary fibrosis documented in this encounter [facility] note* Diagnosis ILD (interstitial lung disease) (HCC)- Primary Postinflammatory pulmonary fibrosis Dyspnea, unspecified IPF (idiopathic pulmonary fibrosis) (HCC) Idiopathic pulmonary fibrosis Interstitial pulmonary disease (HCC) Postinflammatory pulmonary fibrosis documented in this encounter [facility] for referral (narrative)* Outpatient Procedure (Routine) - Pending Review Specialty Diagnoses / Procedures Referred By Roselia blackwell Referred To [facility] Diagnoses ILD (interstitial lung disease) (HCC) Procedures LUNG DIFFUSION CAPACITY (DLCO) DIFFUSING CAPACITY Brittaney Villalba APRN.CNP [address] [address] [facility] [place] [address] [place] [address] Referral ID Status Reason Start Date Expiration Date Visits Requested Visits Authorized [id number] Pending Review Auto-Generat ed Referral 05/22/2022 06/21/2023 1 1 * Outpatient Procedure (Routine) - Pending Review Specialty Diagnoses / Procedures Referred By Roselia blackwell Referred To Contact [facility] Diagnoses ILD (interstitial lung disease) (HCC) Procedures SPIROMETRY WITH DILATOR IF OBSTRUCTED BRNCDILAT RSPSE SPMTRY PRE&POST-BRNCDILAT ADMJennifer Hoytica, POLITICAL SCIENTIST.TURPENTINE FARMER [address] [address] [facility] [place] [address] [place], [place] [address] [phone] Referral ID Status Reason Start Date Expiration Date Visits Requested Visits Authorized [id number] Pending Review Auto-Generat ed Referral 05/22/2022 06/21/2023 1 1 [facility] for referral (narrative)* Outpatient Procedure (Routine) - Authorized Specialty Diagnoses / Procedures Referred By Contac t Referred To Contact [facility] Diagnoses IPF (idiopathic pulmonary fibrosis) (HCC) Procedures LUNG DIFFUSION CAPACITY (DLCO) DIFFUSING CAPACITY Brittaney Villalba APRN.CNP [address] [place] [address] Res[facility] [place] [phone] Referral ID Status Reason Start Date Expiration Date Visits Requested Visits Authorized [id number] Authorized Auto-Generat ed Referral 10/31/2022 11/30/2023 1 1 * Outpatient Procedure (Routine) - Authorized Specialty Diagnoses / Procedures Referred By Contac t Referred To Contact [facility] Diagnoses IPF (idiopathic pulmonary fibrosis) (HCC) Procedures SPIROMETRY WITH DILATOR IF OBSTRUCTED BRNCDILAT RSPSE SPMTRY PRE&POST-BRNCDILAT ADMN Brittaney Villalba APRN.TURPENTINE FARMER [address] [address] [facility] [place] [address] [place], [place] [address] [address] Referral ID Status Reason Start Date Expiration Date Visits Requested Visits Authorized [id number] Authorized Auto-Generat ed Referral 10/31/2022 11/30/2023 1 1 * Medication Prior Authorization - Pending Review Specialty Diagnoses / Procedures Referred By Contac t Referred To Contact Diagnoses IPF (idiopathic pulmonary fibrosis) (HCC) Timi Morgan MD [address] [place] [phone] Referral ID Status Reason Start Date Expiration Date V isits Requested Visits Authorized [id number] Pending Review 1 1 [facility] Outpatient Procedure (Routine) - Authorized Specialty Diagnoses / Procedures Referred By Contac t Referred To Contact [facility] Diagnoses IPF (idiopathic pulmonary fibrosis) (HCC) Procedures LUNG DIFFUSION CAPACITY (DLCO) [place] [address] [place] [address] [place] [address] Referral ID Status Reason Start Date Expiration Date Visits Requested Visits Authorized [id number] Authorized Auto-Generat ed Referral 10/16/2023 11/14/2024 1 1 * Outpatient Procedure (Routine) - Authorized Specialty Diagnoses / Procedures Referred By Contac t Referred To Contact [facility] Diagnoses IPF (idiopathic pulmonary fibrosis) (HCC) Procedures SPIROMETRY WITH DILATOR IF OBSTRUCTED BRNCDILAT RSPSE SPMTRY PRE&[place] [address] [place] [address] [place] [address] Referral ID Status Reason Start Date Expiration Date Visits Requested Visits Authorized [id number] Authorized Auto-Generat ed Referral 10/16/2023 11/14/2024 1 1 [facility] Summary Purpose Family History No Family History Records FoundNo Family History Records FoundNo Family History Records FoundNo Family History Records Found Advance Directives No Advanced Directives Records FoundNo Advanced Directives Records FoundNo Advanced Directives Records FoundNo Advanced Directives Records Found Reason for Referral Specialty Diagnoses / Procedures Referred By Contac t Referred To Contact Diagnoses IPF (idiopathic pulmonary fibrosis) (HCC) Brittaney Villalba, ALISHA.TURPENTINE FARMER [address] [place] [address] Referral ID Status Reason Start Date Expiration Date V isits Requested Visits Authorized [id number] Authorized 1 1 Specialty Diagnoses / Procedures Referred By Contac t Referred To Contact CT IMAG[facility] Diagnoses Interstitial pulmonary disease (HCC) Procedures CT CHEST WO IVCON DIAGNOSTIC COMPUTED TOMOGRAPHY THORAX [place] [address] [place] [address] Ct [facility] [place] [address] Referral ID Status Reason Start Date Expiration Date V isits Requested Visits Authorized [id number] Closed Auto-Generate d Referral 04/03/2023 05/02/2024 1 1 Additional Source Comments (unrecognized sect ion and content) No Status Records FoundNo Status Records FoundNo Status Records FoundNo Status Records Found INFORMATION SOURCE (unrecogn ized section and content) DATE CREATED AUTHOR 08/21/2017 [facility] DATE CREATED AUTHOR AUTHOR'S ORGANIZ ATION 08/21/2017 [facility] DATE CREATED AUTHOR AUTHOR'S ORGANIZ ATION 11/08/2023 [facility] DATE CREATED AUTHOR AUTHOR'S ORGANIZ ATION 12/25/2023 [facility] Source Comments (unrecognize d section and content) In the event this informatio n is protected by the Federal Confidentiality of Alcohol and Drug Abuse Patient Records regulations: The Federal rules restrict any use of the information to criminally investigate or prosecute any alcohol or drug abuse patient.[facility] the event this information is protected by the Federal Confidentiality of Alcohol and Drug Abuse Patient Records regulations: The Federal rules restrict any use of the information to criminally investigate or prosecute any alcohol or drug abuse patient.[facility] the event this information is protected by the Federal Confidentiality of Alcohol and Drug Abuse Patient Records regulations: The Federal rules restrict any use of the information to criminally investigate or prosecute any alcohol or drug abuse patient.[facility] the event this information is protected by the Federal Confidentiality of Alcohol and Drug Abuse Patient Records regulations: The Federal rules restrict any use of the information to criminally investigate or prosecute any alcohol or drug abuse patient.[facility] the event this information is protected by the Federal Confidentiality of Alcohol and Drug Abuse Patient Records regulations: The Federal rules restrict any use of the information to criminally investigate or prosecute any alcohol or drug abuse patient.[facility] the event this information is protected by the Federal Confidentiality of Alcohol and Drug Abuse Patient Records regulations: The Federal rules restrict any use of the information to criminally investigate or prosecute any alcohol or drug abuse patient.[facility] the event this information is protected by the Federal Confidentiality of Alcohol and Drug Abuse Patient Records regulations: The Federal rules restrict any use of the information to criminally investigate or prosecute any alcohol or drug abuse patient.[facility] the event this information is protected by the Federal Confidentiality of Alcohol and Drug Abuse Patient Records regulations: The Federal rules restrict any use of the information to criminally investigate or prosecute any alcohol or drug abuse patient.[facility] the event this information is protected by the Federal Confidentiality of Alcohol and Drug Abuse Patient Records regulations: The Federal rules restrict any use of the information to criminally investigate or prosecute any alcohol or drug abuse patient.[facility] the event this information is protected by the Federal Confidentiality of Alcohol and Drug Abuse Patient Records regulations: The Federal rules restrict any use of the information to criminally investigate or prosecute any alcohol or drug abuse patient.[facility] HospitalIn the event this information is protected by the Federal Confidentiality of Alcohol and Drug Abuse Patient Records regulations: The Federal rules restrict any use of the information to criminally investigate or prosecute any alcohol or drug abuse patient.[facility] the event this information is protected by the Federal Confidentiality of Alcohol and Drug Abuse Patient Records regulations: The Federal rules restrict any use of the information to criminally investigate or prosecute any alcohol or drug abuse patient.[facility] Hospital[facility] the event this information is protected by the Federal Confidentiality of Alcohol and Drug Abuse Patient Records regulations: The Federal rules restrict any use of the information to criminally investigate or prosecute any alcohol or drug abuse patient.[facility] HospitalIn the event this information is protected by the Federal Confidentiality of Alcohol and Drug Abuse Patient Records regulations: The Federal rules restrict any use of the information to criminally investigate or prosecute any alcohol or drug abuse patient.[facility] HospitalIn the event this information is protected by the Federal Confidentiality of Alcohol and Drug Abuse Patient Records regulations: The Federal rules restrict any use of the information to criminally investigate or prosecute any alcohol or drug abuse patient.[facility] HospitalIn the event this information is protected by the Federal Confidentiality of Alcohol and Drug Abuse Patient Records regulations: The Federal rules restrict any use of the information to criminally investigate or prosecute any alcohol or drug abuse patient.[facility] HospitalIn the event this information is protected by the Federal Confidentiality of Alcohol and Drug Abuse Patient Records regulations: The Federal rules restrict any use of the information to criminally investigate or prosecute any alcohol or drug abuse patient.[facility] HospitalIn the event this information is protected by the Federal Confidentiality of Alcohol and Drug Abuse Patient Records regulations: The Federal rules restrict any use of the information to criminally investigate or prosecute any alcohol or drug abuse patient.[facility] HospitalIn the event this information is protected by the Federal Confidentiality of Alcohol and Drug Abuse Patient Records regulations: The Federal rules restrict any use of the information to criminally investigate or prosecute any alcohol or drug abuse patient.[facility] HospitalIn the event this information is protected by the Federal Confidentiality of Alcohol and Drug Abuse Patient Records regulations: The Federal rules restrict any use of the information to criminally investigate or prosecute any alcohol or drug abuse patient.[facility] HospitalIn the event this information is protected by the Federal Confidentiality of Alcohol and Drug Abuse Patient Records regulations: The Federal rules restrict any use of the information to criminally investigate or prosecute any alcohol or drug abuse patient.[facility] HospitalIn the event this information is protected by the Federal Confidentiality of Alcohol and Drug Abuse Patient Records regulations: The Federal rules restrict any use of the information to criminally investigate or prosecute any alcohol or drug abuse patient.[facility] HospitalIn the event this information is protected by the Federal Confidentiality of Alcohol and Drug Abuse Patient Records regulations: The Federal rules restrict any use of the information to criminally investigate or prosecute any alcohol or drug abuse patient.[facility] HospitalIn the event this information is protected by the Federal Confidentiality of Alcohol and Drug Abuse Patient Records regulations: The Federal rules restrict any use of the information to criminally investigate or prosecute any alcohol or drug abuse patient.[facility] HospitalIn the event this information is protected by the Federal Confidentiality of Alcohol and Drug Abuse Patient Records regulations: The Federal rules restrict any use of the information to criminally investigate or prosecute any alcohol or drug abuse patient.[facility] Reason for Visit (unrecogniz ed section and content) Reason Comments New ILD Reason Comments Spirometry Specialty Diagnoses / Procedures Referred By Contac t Referred To Contact [facility] Diagnoses ILD (interstitial lung disease) (HCC) Procedures OXIMETRY WITH AMBULATION NONINVASIVE EAR/PULSE OXIMETRY Timi Hung MD [address] [place], [place] [id number] Res[facility] [place] [phone] Referral ID Status Reason Start Date Expiration Date V isits Requested Visits Authorized [id number] Closed Auto-Generate d Referral 07/25/2022 08/24/2023 1 1 Specialty Diagnoses / Procedures Referred By Contac t Referred To Contact [facility] [place] Diagnoses SOB (shortness of breath) Procedures OXIMETRY WITH AMBULATION NONINVASIVE EAR/PULSE OXIMETRY MULTIPLE Timi Rebolledo MD [address] [place], [place] [id number] Res[facility] [place] [phone] Referral ID Status Reason Start Date Expiration Date V isits Requested Visits Authorized [id number] Closed Auto-Generate d Referral 09/03/2022 10/03/2023 1 1 Reason Comments Oxygen Specialty Diagnoses / Procedures Referred By Contac t Referred To Contact [facility] [place] Diagnoses ILD (interstitial lung disease) (HCC) Procedures LUNG DIFFUSION CAPACITY (DLCO) DIFFUSING CAPACITY Timi Morgan MD [address] [place], [place] [id number] Respiratory [address] [address] Referral ID Status Reason Start Date Expiration Date V isits Requested Visits Authorized [id number] Closed Auto-Generate d Referral 10/24/2022 08/24/2023 1 1 Reason Comments Radio Gen A21 Reason Comments Recheck Reason Comments Medication Authorization Specialty Diagnoses / Procedures Referred By Contac t Referred To Contact [facility] [place] Diagnoses IPF (idiopathic pulmonary fibrosis) (HCC) Procedures SPIROMETRY WITH DILATOR IF OBSTRUCTED BRNCDILAT RSPSE SPMTRY PRE&POST-BRNCDILAT ADMN Brittaney Villalba, POLITICAL SCIENTIST.TURPENTINE FARMER [address] [address] Referral ID Status Reason Start Date Expiration Date V isits Requested Visits Authorized [id number] Closed Auto-Generate d Referral 10/31/2022 11/30/2023 1 1 Specialty Diagnoses / Procedures Referred By Contac t Referred To Contact [facility] [place] Diagnoses IPF (idiopathic pulmonary fibrosis) (HCC) Procedures LUNG DIFFUSION CAPACITY (DLCO) DIFFUSING CAPACITY Brittaney Villalba, POLITICAL SCIENTIST.TURPENTINE FARMER [address] [id number] [address] Referral ID Status Reason Start Date Expiration Date V isits Requested Visits Authorized [id number] Closed Auto-Generate d Referral 10/31/2022 11/30/2023 1 1 Reason Comments Follow Up Reason Comments Oxygen SWO Reason Comments Insurance Authorization Specialty Diagnoses / Procedures Referred By Contac t Referred To Contact [facility] [place] Diagnoses Interstitial pulmonary disease (HCC) Procedures SPIROMETRY - BASELINE AND POST DILATOR BRNCDILAT RSPSE SPMTRY PRE&[place] [address] [place] [address] [place] [address] Referral ID Status Reason Start Date Expiration Date V isits Requested Visits Authorized [id number] Closed Auto-Generate d Referral 04/03/2023 05/02/2024 1 1 Specialty Diagnoses / Procedures Referred By Contac t Referred To Contact [facility] [place] Diagnoses Interstitial pulmonary disease (HCC) Procedures LUNG DIFFUSION CAPACITY (DLCO) [place] [address] [place] [address] [facility] [place] [address] [place] [id number] Referral ID Status Reason Start Date Expiration Date V isits Requested Visits Authorized [id number] Closed Auto-Generate d Referral 04/03/2023 05/02/2024 1 1 Reason Comments Established Patient Reason Comments Radiology CT Specialty Diagnoses / Procedures Referred By Contac t Referred To Contact CT IMAGING Diagnoses Interstitial pulmonary disease (HCC) Procedures CT CHEST WO IVCON DIAGNOSTIC COMPUTED TOMOGRAPHY THORAX W/[place] [address] [place] [address] Ct Imaging [facility]95 Referral ID Status Reason Start Date Expiration Date V isits Requested Visits Authorized [id number] Closed Auto-Generate d Referral 04/03/2023 05/02/2024 1 1 Care Teams (unrecognized sec tion and content) Copying Machine Mechanic Relationship Specialty Start Date End Date Franky Lockhart MD [address] [place] [id number] PCP - General Internal Medicine 04/22/20 Copying Machine Mechanic Relationship Specialty Start Date End Date Franky Lockhart MD [address] [place] [address] PCP - General Internal Medicine 04/22/20 Copying Machine Mechanic Relationship Specialty Start Date End Date Franky Lockhart MD [address] [place] [address] PCP - General Internal Medicine 04/22/20 Copying Machine Mechanic Relationship Specialty Start Date End Date Franky Lockhart MD [address] [place] [address] PCP - General Internal Medicine 04/22/20 Copying Machine Mechanic Relationship Specialty Start Date End Date Franky Lockhart MD [address] [place] [address] PCP - General Internal Medicine 04/22/20 Copying Machine Mechanic Relationship Specialty Start Date End Date Franky Lockhart MD [address] [place] [address] PCP - General Internal Medicine 04/22/20 Copying Machine Mechanic Relationship Specialty Start Date End Date Franky Lockhart MD [address] [place] [address] PCP - General Internal Medicine 04/22/20 Copying Machine Mechanic Relationship Specialty Start Date End Date Franky Lockhart MD [address] [place] [address] PCP - General Internal Medicine 04/22/20 Copying Machine Mechanic Relationship Specialty Start Date End Date Franky Lockhart MD [address] [place] [address] PCP - General Internal Medicine 04/22/20 Copying Machine Mechanic Relationship Specialty Start Date End Date Franky Lockhart MD [address] [place] [address] PCP - General Internal Medicine 04/22/20 Copying Machine Mechanic Relationship Specialty Start Date End Date Franky Lockhart MD [address] [place] [address] PCP - General Internal Medicine 04/22/20 Copying Machine Mechanic Relationship Specialty Start Date End Date Franky Lockhart MD [address] [facility] [address] [place] [address] PCP - General Internal Medicine 04/22/20 Copying Machine Mechanic Relationship Specialty Start Date End Date [facility] [address] [facility] [address] [place] [address] PCP - General Internal Medicine 04/22/20 Copying Machine Mechanic Relationship Specialty Start Date End Date [facility] Lockhart [facility] [address] [facility] [address] [place] [address] PCP - General Internal Medicine 04/22/20 Copying Machine Mechanic Relationship Specialty Start Date End Date Frank[facility] Lockhart [facility] [address] [facility] [address] [place] [address] PCP - General Internal Medicine 04/22/20 Copying Machine Mechanic Relationship Specialty Start Date End Date Franky Lockhart MD [address] [facility] [address] [place] [address] PCP - General Internal Medicine 04/22/20 Copying Machine Mechanic Relationship Specialty Start Date End Date Frank[facility] Lockhart MD [address] [facility] [address] [place] [address] PCP - General Internal Medicine 04/22/20 FOR RECORDS PERTAINING TO PATIENTS WHO ARE OR HAVE BEEN ENROLLED IN A CHEMICAL DEPENDENCY/SUBSTANCEABUSE PROGRAM, SOME INFORMATION MAY BE OMITTED. This clinical summary was aggregated from multiple sources. Caution should be exercised in using it in the provision of clinical care. This summary normalizes information from multiple sources, and as a consequence, information in this document may materially change the coding, format and clinical context of patient data. In addition, data may be omitted in some cases. CLINICAL DECISIONS SHOULD BE BASED ON THE PRIMARY CLINICAL RECORDS. [facility], [facility]. provides no warranty or guarantee of the accuracy or completeness of information in this document.
== END | disposition home or self-care (01) ==
LOC: CVS 08:48
PROVIDERS: PCP Internal Medicine; Referring Provider Nurse Practitioner Gerontology; Visit Provider Nurse Practitioner Gerontology
DX: I10 Essential (primary) hypertension (principal)
CPT/HCPCS: 93975

== ENCOUNTER 2024-01-07 13:02 | Outpatient (RCR) | payer MEDICARE, OTHER, SELFPAY ==
[2024-01-07 15:28] LABS: Hematocrit 34.9 % (40-54); Hemoglobin 10.7 g/dL (13.0-16.5); Mean Corp Hgb Conc 30.7 g/dL (32-36); Mean Corpuscular Hgb 28.9 pg (27.0-32.0); Mean Corpuscular Volume 94.3 fL (80-94); Mean Platelet Vol. 11.2 fl (6.2-12.0); Platelet Count 104 K/mm3 (150-450); RBC Distribution Width CV 16.2 % (11.6-14.6); RBC Distribution Width SD 55.4 fl (35.1-43.9); White Blood Count 9.8 K/mm3 (4.4-11.0)
[2024-01-07 16:07] LABS: Anion Gap 6 (5-15); BUN 72 mg/dL (7-18); BUN/Creat Ratio 26.9 RATIO (10-20); Calcium,Total 8.6 mg/dL (8.5-10.1); Chloride 114 mmol/L (98-107); Creatinine, Serum 2.68 mg/dL (0.70-1.30); EST Glomerular Filtration Rate 25 mL/min (>60); Est Glom Filt Rate - Afr Amer 30 mL/min (>60); Glucose 114 mg/dL (74-106); Potassium 5.1 mmol/L (3.5-5.1); Sodium Level 142 mmol/L (136-145)
== END 2024-02-01 23:59 ==
LOC: BIMLAB 13:02
PROVIDERS: PCP Internal Medicine; Referring Provider Internal Medicine Nephrology; Visit Provider Internal Medicine Nephrology
DX: D63.1 Anemia in chronic kidney disease (principal); N18.9 Chronic kidney disease, unspecified
CPT/HCPCS: 36415; 80048; 85027

== ENCOUNTER 2024-02-13 13:22 | Outpatient (RCR) | payer MEDICARE, OTHER, SELFPAY ==
[2024-02-13 15:24] LABS: Hematocrit 31.3 % (40-54); Hemoglobin 9.8 g/dL (13.0-16.5); Mean Corp Hgb Conc 31.3 g/dL (32-36); Mean Corpuscular Hgb 30.7 pg (27.0-32.0); Mean Corpuscular Volume 98.1 fL (80-94); Mean Platelet Vol. 10.9 fl (6.2-12.0); Platelet Count 101 K/mm3 (150-450); RBC Distribution Width CV 17.8 % (11.6-14.6); RBC Distribution Width SD 63.9 fl (35.1-43.9); Red Blood Count 3.19 M/mm3 (4.6-6.2); White Blood Count 11.5 K/mm3 (4.4-11.0)
[2024-02-13 15:38] LABS: Anion Gap 10 (5-15); BUN 57 mg/dL (7-18); BUN/Creat Ratio 19.7 RATIO (10-20); Calcium,Total 8.7 mg/dL (8.5-10.1); Chloride 111 mmol/L (98-107); Creatinine, Serum 2.89 mg/dL (0.70-1.30); EST Glomerular Filtration Rate 23 mL/min (>60); Est Glom Filt Rate - Afr Amer 27 mL/min (>60); Glucose 131 mg/dL (74-106); Potassium 4.7 mmol/L (3.5-5.1); Sodium Level 142 mmol/L (136-145)
== END 2024-03-03 23:59 ==
LOC: BIMLAB 13:22
PROVIDERS: PCP Internal Medicine; Referring Provider Internal Medicine Nephrology; Visit Provider Internal Medicine Nephrology
DX: N18.9 Chronic kidney disease, unspecified (principal); D63.1 Anemia in chronic kidney disease
CPT/HCPCS: 36415; 80048; 85027

== ENCOUNTER 2024-03-23 14:13 | Outpatient (RCR) | payer MEDICARE, OTHER, SELFPAY ==
[2024-03-05 15:07] LABS: Hematocrit 29.5 % (40-54); Mean Corp Hgb Conc 30.5 g/dL (32-36); Mean Corpuscular Volume 101.7 fL (80-94); Mean Platelet Vol. 10.9 fl (6.2-12.0); Platelet Count 181 K/mm3 (150-450); RBC Distribution Width CV 15.6 % (11.6-14.6); RBC Distribution Width SD 58.1 fl (35.1-43.9); White Blood Count 9.8 K/mm3 (4.4-11.0)
[2024-03-05 15:41] LABS: Albumin, Serum 2.7 g/dL (3.2-5.0); BUN 71 mg/dL (7-18); BUN/Creat Ratio 26.8 RATIO (10-20); Calcium,Total 8.8 mg/dL (8.5-10.1); Chloride 110 mmol/L (98-107); Creatinine, Serum 2.65 mg/dL (0.70-1.30); EST Glomerular Filtration Rate 25 mL/min (>60); Est Glom Filt Rate - Afr Amer 30 mL/min (>60); Glucose 160 mg/dL (74-106); Phosphorus 3.1 mg/dL (2.5-4.9); Potassium 5.1 mmol/L (3.5-5.1); Sodium Level 137 mmol/L (136-145)
[2024-03-05 16:12] LABS: Protein, Urine (Random) 68.4 mg/dL (<11.9); Protein:Creat Ratio 1221 mg/g CRE (0-200)
[2024-03-23 17:00] LABS: Erythrocyte Sedimentation Rate 38 mm/hr (0-20)
[2024-03-23 17:01] LABS: Hematocrit 29.9 % (40-54); Hemoglobin 9.3 g/dL (13.0-16.5); Mean Corp Hgb Conc 31.1 g/dL (32-36); Mean Corpuscular Volume 102.7 fL (80-94); Mean Platelet Vol. 10.8 fl (6.2-12.0); Platelet Count 247 K/mm3 (150-450); RBC Distribution Width CV 14.1 % (11.6-14.6); RBC Distribution Width SD 52.8 fl (35.1-43.9); Red Blood Count 2.91 M/mm3 (4.6-6.2); White Blood Count 12.8 K/mm3 (4.4-11.0)
[2024-03-23 18:29] LABS: ALB/GLOB Ratio 0.6 RATIO (0.9-2.4); AST(SGOT) 19 U/L (15-37); Alanine Aminotransfer ALT/SGPT 43 U/L (16-61); Albumin, Serum 2.9 g/dL (3.2-5.0); Alkaline Phosphatase 104 U/L (45-117); Anion Gap 8 (5-15); BUN 83 mg/dL (7-18); BUN/Creat Ratio 29.5 RATIO (10-20); Calcium,Total 8.8 mg/dL (8.5-10.1); Chloride 114 mmol/L (98-107); Cholesterol 146 mg/dL (200); Creatinine, Serum 2.81 mg/dL (0.70-1.30); EST Glomerular Filtration Rate 23 mL/min (>60); Est Glom Filt Rate - Afr Amer 28 mL/min (>60); Globulin 4.6 g/dL (2.2-4.2); Glucose 113 mg/dL (74-106); High Density Lipoprotein 61 mg/dL; Potassium 5.9 mmol/L (3.5-5.1); Protein, Total 7.5 g/dL (6.4-8.2); Sodium Level 143 mmol/L (136-145); T4 Free Direct 0.78 ng/dL (0.76-1.46); Triglycerides 61 mg/dL; Very Low Density Lipoprotein 12 mg/dL (5-40)
== END 2024-04-03 23:59 ==
LOC: BIMLAB 14:13
PROVIDERS: PCP Internal Medicine; Referring Provider Internal Medicine Nephrology; Visit Provider Internal Medicine Nephrology
DX: E78.5 Hyperlipidemia, unspecified; I12.9 Hypertensive chronic kidney disease with stage 1 through stage 4 chronic kidney disease, or unspecified chronic kidney disease; D63.1 Anemia in chronic kidney disease; N18.32 Chronic kidney disease, stage 3b
CPT/HCPCS: 36415; 80053; 80061; 80069; 82570; 84156; 84439; 84443; 85027; 85652

== ENCOUNTER → 2024-03-27 | Outpatient (CLI) | payer MEDICARE, OTHER, SELFPAY ==
[2024-03-27 15:46] LABS: Anion Gap 9 (5-15); BUN 103 mg/dL (7-18); BUN/Creat Ratio 34.7 RATIO (10-20); Calcium,Total 8.8 mg/dL (8.5-10.1); Chloride 113 mmol/L (98-107); Creatinine, Serum 2.97 mg/dL (0.70-1.30); EST Glomerular Filtration Rate 22 mL/min (>60); Est Glom Filt Rate - Afr Amer 26 mL/min (>60); Glucose 122 mg/dL (74-106); Potassium 5.3 mmol/L (3.5-5.1); Sodium Level 141 mmol/L (136-145)
== END | disposition home or self-care (01) ==
LOC: BIMLAB 11:54
PROVIDERS: PCP Internal Medicine; Referring Provider Internal Medicine; Visit Provider Internal Medicine
DX: E87.5 Hyperkalemia (principal)
CPT/HCPCS: 36415; 80048

== ENCOUNTER → 2024-03-31 | Outpatient (CLI) | payer MEDICARE, OTHER, SELFPAY ==
[2024-03-31 15:43] LABS: Anion Gap 8 (5-15); BUN 76 mg/dL (7-18); BUN/Creat Ratio 29.7 RATIO (10-20); Calcium,Total 8.7 mg/dL (8.5-10.1); Chloride 108 mmol/L (98-107); Creatinine, Serum 2.56 mg/dL (0.70-1.30); EST Glomerular Filtration Rate 26 mL/min (>60); Est Glom Filt Rate - Afr Amer 31 mL/min (>60); Glucose 120 mg/dL (74-106); Potassium 5.5 mmol/L (3.5-5.1); Sodium Level 135 mmol/L (136-145)
== END | disposition home or self-care (01) ==
LOC: BIMLAB 13:42
PROVIDERS: PCP Internal Medicine; Referring Provider Internal Medicine Nephrology; Visit Provider Internal Medicine Nephrology
DX: E87.5 Hyperkalemia (principal)
CPT/HCPCS: 36415; 80048

== ENCOUNTER 2024-04-09 13:03 | Outpatient (RCR) | payer MEDICARE, OTHER, SELFPAY ==
[2024-04-09 15:27] LABS: Hematocrit 27.2 % (40-54); Hemoglobin 8.5 g/dL (13.0-16.5); Mean Corp Hgb Conc 31.3 g/dL (32-36); Mean Corpuscular Hgb 32.1 pg (27.0-32.0); Mean Corpuscular Volume 102.6 fL (80-94); Mean Platelet Vol. 10.6 fl (6.2-12.0); Platelet Count 224 K/mm3 (150-450); RBC Distribution Width SD 56.7 fl (35.1-43.9); Red Blood Count 2.65 M/mm3 (4.6-6.2); White Blood Count 9.7 K/mm3 (4.4-11.0)
[2024-04-09 15:57] LABS: Anion Gap 8 (5-15); BUN 69 mg/dL (7-18); BUN/Creat Ratio 27.7 RATIO (10-20); Calcium,Total 8.1 mg/dL (8.5-10.1); Chloride 114 mmol/L (98-107); Creatinine, Serum 2.49 mg/dL (0.70-1.30); EST Glomerular Filtration Rate 27 mL/min (>60); Est Glom Filt Rate - Afr Amer 32 mL/min (>60); Glucose 149 mg/dL (74-106); Potassium 5.8 mmol/L (3.5-5.1); Sodium Level 138 mmol/L (136-145)
== END 2024-05-01 23:59 ==
LOC: BIMLAB 13:03
PROVIDERS: PCP Internal Medicine; Referring Provider Internal Medicine Nephrology; Visit Provider Internal Medicine Nephrology
DX: D63.1 Anemia in chronic kidney disease (principal); N18.32 Chronic kidney disease, stage 3b
CPT/HCPCS: 36415; 80048; 85027

== ENCOUNTER 2024-04-11 08:47 | Inpatient (IN) | payer MEDICARE, OTHER, SELFPAY ==
[2024-04-11] VITALS (22 sets, daily range): BP systolic 148–188; BP diastolic 44–64; PULSE 57–91; RESP 16–22; TEMP 36.3–36.9; O2SAT 71–99; BMI 24.7; BMI 20.9
--- NOTE | 2024-04-11 08:59 | EKG12_ITS ---
Test Reason : Blood Pressure : */* mmHG Vent. Rate : 70 BPM Atrial Rate : 70 BPM P-R Int : 234 ms QRS Dur : 110 ms QT Int : 422 ms P-R-T Axes : 85 60 212 degrees QTcB Int : 455 ms Sinus rhythm with 1st degree A-V block Septal infarct , age undetermined ST & T wave abnormality, consider inferior ischemia ST & T wave abnormality, consider anterolateral ischemia Abnormal ECG Confirmed by SUNG HEADLEY MD ([id number]), medical transcription editor CALLIE AGUILAR ([id number]) on 04/13/2024 6:30:52 AM Referred By: DYAN Confirmed By: SUNG HEADLEY MD
--- NOTE | 2024-04-11 09:01 | ED.VIS.DYS ---
HPI History of Present Illness Chief Complaint: Shortness of Breath Informant: patient and spouse/S.O. Onset/Context/Timing Onset: Today Context: gradual Timing: Continuous Quality: Positive for Wheezing Current Severity: Moderate Maximum Severity: Moderate Worsened by: Nothing Relieved by: Nothing Associated Symptoms cough and green sputum; Negative for fever or sore throat Chest Pain: Positive for None Narrative Narrative: 78-year-old male history of pulmonary fibrosis typically on 3 L oxygen at home last night had increased to 10 L. Also history of chronic kidney disease, anemia, A-fib, CAD, CHF, prior CABG and TIA. Patient's had a cough and shortness of breath last couple days and he got much more short of breath today. Cough of green sputum. No chest pain. No history of DVT or PE. No recent fever. No leg pain or swelling. He has been eating and drinking well. No one else at home is ill. PE Risk Factors: Negative for Cancer, OCP + Smoking + > 35, Prior DVT or PE, Recent immobilization, Recent surgery or Recent travel Prior similar symptoms: No Recent Illness/Hospitalization: No PFSH PFS Medical History Hyperkalemia Weight loss, non-intentional Stage III chronic kidney disease BPH (benign prostatic hyperplasia) Insomnia Anemia GI bleed Anxiety Depression Kidney disease Former smoker On home oxygen therapy Atrial fibrillation Coronary artery disease Hypertension Respiratory failure with hypoxia CHF (congestive heart failure) Hypoxia Hemoptysis Hypoxia Interstitial lung disease Chronic cough Flu vaccine need Increased sputum production Generalized anxiety disorder Diarrhea Varicose veins of both lower extremities Arthritis Secondary pulmonary arterial hypertension FRANCISCO JAVIER (obstructive sleep apnea) Pleural effusion due to CHF (congestive heart failure) (08/27/19) Diverticulitis Hypoxia Elevated troponin (04/07/19) PND (post-nasal drip) Transient ischemic attack Anemia in chronic kidney disease (CKD) CVA (cerebral vascular accident) Stenosis of left subclavian artery Chronic kidney disease, stage 3 Renal artery stenosis Paroxysmal atrial flutter Bilateral carotid artery stenosis Peripheral vascular occlusive disease Atherosclerosis of coronary artery of [place] heart without angina pectoris Essential (primary) hypertension Hyperlipidemia Chronic diastolic (congestive) heart failure GERD (gastroesophageal reflux disease) Gout Arthritis Home Medications ?Medication ?Instructions ?Recorded ?Last Taken ?Type aspirin 81 mg chewable tablet 81 mg PO QHS Heart 08/03/19 04/10/24 History ascorbate calcium (vitamin C) 500 500 mg PO DAILY vitamin 09/28/20 Unknown History mg tablet nitroglycerin 0.4 mg sublingual 0.4 mg sublingual PRN PRN Angina 08/14/22 Unknown Rx tablet #25 tabs ferrous sulfate 325 mg (65 mg 325 mg PO BID supplement 01/16/23 04/11/24 History iron) tablet (Feosol) ezetimibe 10 mg tablet 10 mg PO QHS cholesterol #90 tabs 09/02/23 04/10/24 Rx hydralazine 100 mg tablet 100 mg PO TID #270 tabs 09/25/23 04/11/24 Rx pirfenidone 267 mg tablet 801 mg PO TID 09/25/23 04/11/24 History carvedilol 3.125 mg tablet 3.125 mg PO BID blood pressure #60 10/17/23 04/11/24 Rx tabs sertraline 50 mg tablet 50 mg PO DAILY mental health #90 11/05/23 04/11/24 Rx tabs atorvastatin 80 mg tablet 80 mg PO QHS for cholesterol #90 12/23/23 04/10/24 Rx TABLETS doxazosin 8 mg tablet 8 mg PO QHS #90 tabs 12/25/23 04/10/24 Rx amlodipine 10 mg tablet 10 mg PO DAILY blood pressure #90 03/03/24 04/11/24 Rx tabs lymvzvhxfsdd-bfj-omlxf acid-vit 1 tab PO QDAY 03/23/24 04/11/24 History K-lycop 400 mcg-20 mcg-370 mcg tablet (Men's 50 Plus Multivitamin) isosorbide mononitrate 120 mg 120 mg PO QAM this is a dose 04/07/24 04/11/24 Rx tablet,extended release 24 hr increase #90 tabs Allergy/AdvReac Type Severity Reaction Status Date / Time No Known Allergies Allergy Verified 04/11/24 08:49 Family History Son CAD (coronary artery disease) Brother CAD (coronary artery disease) Diabetes Brother CAD (coronary artery disease) Diabetes Other Anemia Arthritis CVA (cerebral vascular accident) Hyperlipemia Hypertension Kidney disease Skin cancer Surgical History H/O basal cell carcinoma excision (09/2018) History of left common carotid artery stent placement (2003) History of stent insertion of renal artery (10/01/19) History of angioplasty of peripheral vessel History of left heart catheterization (08/13/12) H/O coronary artery bypass surgery (08/14/12) History of herniorrhaphy History of right-sided carotid endarterectomy (05/2016) H/O colonoscopy History of knee replacement Social History Smoking Status: Former smoker Tobacco: How many years used: 15 how long ago did patient quit smokin second hand exposure: No alcohol intake: current alcohol intake frequency: holidays/special occasions only substance use type: does not use caffeine: Yes ROS ROS ED ROS Narrative Shortness of breath. Cough of green sputum. No leg pain or swelling Constitutional Constitutional ED: Denies chills or fever(s) Eyes Eyes: Denies blurry vision ENT ENT ED: Denies ear pain Cardiovascular Cardiovascular: Denies chest pain or palpitations Respiratory/Chest Respiratory/Chest: Reports cough, dyspnea and sputum Gastrointestinal Gastrointestinal: Denies abdominal pain, constipation, diarrhea, melena, nausea or vomiting Genitourinary Genitourinary ED: Denies dysuria or hematuria Musculoskeletal Musculoskeletal: Denies arthralgias or back pain Integumentary Denies abscess or Abrasions Neurologic Neurologic: Denies headache(s) Psychiatric Psychiatric: Denies anxiety or depression Endocrine Endocrinology: Denies cold intolerance or heat intolerance Hematologic/Lymphatic Hematologic/Lymphatic: Denies easy bleeding, easy bruising or lymphadenopathy Allergic/Immunologic Allergic/Immunologic ED: Denies mouth swelling, tongue swelling or urticaria EXAM Physical Exam Narrative Exam Narrative: 78-year-old male currently his vital signs are stable initially on 6 L he was only 71% hypoxic. Now he is on high flow 10 L is 95%. Sitting upright in bed. Female present at bedside. H EENT exam pupils round react light. Mytrex membranes. No facial droop. Normal speech. No trauma. Neck nontender no JVD. No lymphadenopathy. Back nontender. Lungs expiratory wheezing throughout. No rales or rhonchi. Heart regular rhythm rate about 60 no murmur. Chest wall ribs nontender. No crepitance. Abdomen soft nontender. Moving all 4 extremities. Normal manager crisis strength. Normal dorsi plantarflexion. Calves are nontender without edema or cords. Neurologically is awake alert. Answering questions following commands. Const Vital Signs: 04/11/24 08:48 04/11/24 08:49 04/11/24 08:53 Temperature 97.8 F 97.8 F Temperature Source Oral Oral Pulse Rate 57 L 57 L Respiratory Rate 18 18 Respiratory Effort Respiratory Depth Respiratory Pattern Blood Pressure 148/48 H 148/48 H Blood Pressure Mean 81 81 Pulse Ox 95 71 71 Oxygen Delivery Method High Flow Nasal Cannula Nasal Cannula Oxygen Flow Rate (L/min) 12 6 6 04/11/24 08:56 04/11/24 09:10 04/11/24 09:10 Temperature Temperature Source Pulse Rate 58 L Respiratory Rate 20 H Respiratory Effort Short of Breath Respiratory Depth Normal Respiratory Pattern Normal Tachypnea Blood Pressure Blood Pressure Mean Pulse Ox 98 Oxygen Delivery Method Nasal Cannula High Flow Oxygen Flow Rate (L/min) 6 10 04/11/24 10:05 04/11/24 11:10 Temperature 98.3 F 97.4 F L Temperature Source Oral Oral Pulse Rate 61 66 Respiratory Rate 17 18 Respiratory Effort Respiratory Depth Respiratory Pattern Blood Pressure 156/44 H 174/50 H Blood Pressure Mean 81 91 Pulse Ox 97 98 Oxygen Delivery Method High Flow High Flow Oxygen Flow Rate (L/min) 8 8 Positive well nourished and well developed; Negative for obese, cachectic, contractures or unkempt General Appearance ED: well developed; Negative for unkempt, cachectic, contractures, NAD or pallor Nutritional Appearance: Negative for cachectic or obese HEENT Reports moist mucous membranes; Denies dry mucous membranes atraumatic; Negative for trauma or tenderness Mouth ED: No dry mucous membranes Mouth: No dry mucous membranes Eyes PERRL and EOMs intact bilaterally Neck no lymphadenopathy, supple, no meningeal signs and no JVD General: Negative for tenderness Resp normal respiratory effort and No clear to auscultation bilaterally Resp Narrative: Bilateral wheezing. No rales or rhonchi. Equal symmetrical. On 10 L he is not in acute distress. Auscultation: wheezes Cardio regular rate, regular rhythm, S1 normal heart sound, S2 normal heart sound and no murmurs Rate: Negative for bradycardia or tachycardic Rhythm: Negative for abnormal rhythm GI non-tender, non-distended and no masses Palpation: soft; Negative for tender, guarding or rebound tenderness present Back/Spine no CVA tenderness and normal to inspection General Back: Negative for CVA tenderness Extremity normal to inspection General Extremety ED: Negative for edema or tenderness General Extremity: Negative for edema Neuro oriented x3 and CN's II-XII intact bilaterally Sensorium / Orientation: alert, oriented to person, oriented to place and oriented to time; Negative for orientation impaired, confused, lethargic or stuporous Motor Exam: strength 5/5 throughout Psych mental status grossly normal Appearance: Negative for unkempt Attitude: No agitated Mood & Affect: Negative for depressed, anxious or tearful Thought Process: normal thought process Skin no wounds and skin turgor normal General Skin Exam: Negative for jaundice or pallor Lesions: no lesions Rashes: no rashes Trauma: Negative for abrasion, laceration or puncture MDM MDM MDM Narrative Medical decision making narrative: 78-year-old male hypoxic with pulmonary fibrosis. Bilateral wheezing. Rule out pneumonia versus viral respiratory infections versus CHF versus other etiologies. He has no history of DVT or PE or risk factors. No leg pain or swelling. He will be treated with Solu-Medrol and aerosols will DuoNeb and albuterol. Cardiac/respiratory workup. Repeat exam at 11:45 AM patient is improved. He is breathing better. Currently he is not wheezing. He was recently taken off his diuretic at home about a month ago. It seems like this is secondary to CHF he may or may not also have a viral URI. He will be given IV Lasix and admitted to the hospital. History & Record Review Discussion w/independent historian: Family Additional record(s) reviewed:: Prior inpatient record, Prior outpatient record, Prior ED visit and Prior labs Lab Data Attestation: I reviewed the patient's lab results. Lab results narrative: COVID and flu negative. CBC shows a white count of 11. H&H 9.1 and 29. Platelets 221. Electrolytes show sodium 140. Potassium 5.3. Gap 6. BUN is 67 creatinine of 2.24. Glucose 111. Troponins elevated to 296. BNP is elevated at 1,830 Patient has known kidney disease these are consistent with his prior labs. He has known CHF. Labs: Laboratory Results - last 24 hr 04/11/24 09:10 WBC 11.0 RBC 2.89 L Hgb 9.1 L Hct 29.0 L MCV 100.3 H MCH 31.5 MCHC 31.4 L RDW Std Deviation 53.2 H RDW Coeff of Lisa 14.7 H Plt Count 221 MPV 9.8 Immature Gran % (Auto) 0.400 Neut % (Auto) 79.4 H Lymph % (Auto) 8.3 L [place] % (Auto) 7.4 Eos % (Auto) 3.7 Baso % (Auto) 0.8 Absolute Neuts (auto) 8.8 H Absolute Lymphs (auto) 0.91 Nucleated RBC % 0 Sodium 140 Potassium 5.3 H Chloride 116 H Carbon Dioxide 18.0 L Anion Gap 6 BUN 67 H Creatinine 2.24 H Estim Creat Clear Calc 26.29 Est GFR (MDRD) Af Amer 37 L Est GFR (MDRD) Non-Af 30 L BUN/Creatinine Ratio 29.9 H Glucose 111 H Calcium 8.5 Troponin I High Sens 296 H* B-Natriuretic Peptide 1830.9 H Radiography Chest X-Ray - ED: 2 View, Read by ED Physician, Read by Radiologist, Heart, Mediastinum, Bony Structures, Chronic Changes, CHF, Right Effusion and Left Effusion Diagnostic Testing: Clinical Impression(s) from Imaging Studies Chest X-Ray 04/11/24 09:45 IMPRESSION: Stable abnormal imaging findings compared to priors. Reading Location: [facility] Chest x-ray, 2 views, AP and lateral, interpreted both by myself and the radiologist consistent with bilateral pleural effusions, CHF and chronic changes. Rhythm Strip Rhythm Strip: Sinus Rhythm Rate: 70 Ectopy: None EKG Initial EKG: Attestation: I personally reviewed and interpreted this EKG as follows: Interpretation: Sinus Rhythm and No Acute Injury Pattern Comments: Normal sinus rhythm rate of 70 first-degree AV block TX interval 234. Does have inverted T waves in V3 through V6. Prior EKG tracings: not available for review Discharge Plan Dx/Rx/DC Orders Clinical Impression: Acute dyspnea, Hypoxia, CHF (congestive heart failure), Viral URI, Elevated troponin, History of atrial fibrillation, History of chronic kidney disease, History of pulmonary fibrosis Disposition Disposition: Acute Care [facility]
[2024-04-11] MEDS: Albuterol 2.5 MG/3 ML VIAL.NEB. INHALATION (09:09)
[2024-04-11] MEDS: Ipratropium/Albuterol Sulfate 3 ML AMPUL.NEB INHALATION ×2 (09:09→20:39)
[2024-04-11 09:17] LABS: Absolute Lymphocyte Count 0.91 X10^3/uL (0.83-4.51); Absolute Neutrophil Count 8.8 X10^3/uL (2.0-7.7); Basophil# 0.09 X10^3/uL; Basophil% 0.8 % (0-1); Eosinophil# 0.41 X10^3/uL; Eosinophils% 3.7 % (0-5); Hemoglobin 9.1 g/dL (13.0-16.5); Lymphocyte # 0.91 X10^3/ul (0.83-4.51); Lymphocyte % 8.3 % (19-41); Mean Corp Hgb Conc 31.4 g/dL (32-36); Mean Corpuscular Hgb 31.5 pg (27.0-32.0); Mean Corpuscular Volume 100.3 fL (80-94); Mean Platelet Vol. 9.8 fl (6.2-12.0); Monocyte# 0.81 X10^3/uL; Monocyte% 7.4 % (0-10); NRBC Flagged by Analyzer 0 % (0-5); Neutrophil # 8.76 X10^3/uL (2.7-7.7); Neutrophil % 79.4 % (47-70); Platelet Count 221 K/mm3 (150-450); RBC Distribution Width CV 14.7 % (11.6-14.6); RBC Distribution Width SD 53.2 fl (35.1-43.9); Red Blood Count 2.89 M/mm3 (4.6-6.2)
[2024-04-11 09:30] LABS: BNP,B-Type NATRIURETIC PEPTIDE 1830.9 pg/mL (0-100)
[2024-04-11 09:38] LABS: Anion Gap 6 (5-15); BUN 67 mg/dL (7-18); BUN/Creat Ratio 29.9 RATIO (10-20); Calcium,Total 8.5 mg/dL (8.5-10.1); Chloride 116 mmol/L (98-107); Creatinine, Serum 2.24 mg/dL (0.70-1.30); EST Glomerular Filtration Rate 30 mL/min (>60); Est Glom Filt Rate - Afr Amer 37 mL/min (>60); Estimated Creatinine Clearance 26.29 ml/min; Glucose 111 mg/dL (74-106); Potassium 5.3 mmol/L (3.5-5.1); Sodium Level 140 mmol/L (136-145); Troponin-I HS 296 pg/mL (3.0-78.0)
[2024-04-11] MEDS: MethylPREDNISolone 125 MG/2 ML Vial IV (09:40)
--- NOTE | 2024-04-11 09:45 | RAD_ITS ---
PROCEDURE: CHEST PA AND LATERAL REASON FOR EXAM: Cough TECHNIQUE: Frontal and lateral views of the chest. COMPARISON: Reviewed. FINDINGS: Sternotomy changes. Heart size enlarged but stable. Patchy bilateral airspace disease primarily at the bases with a moderate left small right pleural effusion. No pneumothorax. RAD/Chest PA and Lateral IMPRESSION: Stable abnormal imaging findings compared to priors. Reading Location: [facility]
--- NOTE | 2024-04-11 11:43 | EKG12_ITS ---
Test Reason : CHF Blood Pressure : */* mmHG Vent. Rate : 69 BPM Atrial Rate : 69 BPM P-R Int : 210 ms QRS Dur : 106 ms QT Int : 404 ms P-R-T Axes : 74 56 208 degrees QTcB Int : 432 ms Sinus rhythm with 1st degree A-V block Incomplete left bundle branch block Left ventricular hypertrophy with repolarization abnormality ( Sokolow-Connolly , Arnold product , Romhilt-Lamb ) Abnormal ECG Confirmed by ANA DIAZ, DAVID ([id number]), assignment editor CALLIE AGUILAR ([id number]) on 05/18/2024 10:47:39 AM Referred By: Confirmed By: DAVID PEREZ MD
[2024-04-11] MEDS: Furosemide 40 MG/4 ML Vial IV ×2 (11:58→17:01)
--- NOTE | 2024-04-11 12:02 | HP.PCM.HOS_ITS ---
HPI - General General Date of Admission: 04/11/24 Date of Service: 04/11/24 Chief Complaint: Worsening shortness of breath and cough HPI Narrative EKTA CONWAY, is a 78 M who presented to [facility] ED on 04/11/2024 with worsening shortness of breath and cough. Patient has history significant for pulmonary fibrosis on 3 L home O2, CKD stage IV, anemia, CAD with CABG, and CHF. Follows with [facility] pulmonology and has been stable on 3 L for the past 2 years. Denies any prior IPF exacerbations. He was recently started on pirfenidone and has been tolerating this without issue. He notably was recently taken off his home diuretic for unclear reason. In ED patient was requiring 8 L high flow nasal cannula to maintain oxygen saturations greater than 90%. He was otherwise afebrile with normal sinus rhythm and only mildly elevated blood pressure. Lab workup notable for BNP 1830 and troponin 296. BNP notably is similar to slightly higher than previous values. CBC and BMP are at baseline. Chest x-ray showed patchy bilateral airspace disease primarily at bases with moderate left and small right pleural effusions. COVID/flu/RSV negative. Patient was given a dose of IV Lasix along with a breathing treatment and dose of steroids with improvement in his symptoms. Hospitalist was then contacted for admission. I saw the patient at bedside in the ED. Patient was sitting up and breathing comfortably on 8 L high flow nasal cannula. Noted that he felt significantly better now than he did earlier today. States that he has no shortness of breath when sitting up but has felt more short of breath especially with lying flat over the past week or so. Denies any lower extremity swelling. Reported mild wheezing that improved after breathing treatment today. Denies any recent sick contacts he is aware of. Denies any other infectious symptoms. Has been eating and drinking without issue. No other acute concerns currently. [facility] Medical History Hyperkalemia Weight loss, non-intentional Stage III chronic kidney disease BPH (benign prostatic hyperplasia) Insomnia Anemia GI bleed Anxiety Depression Kidney disease Former smoker On home oxygen therapy Atrial fibrillation Coronary artery disease Hypertension Respiratory failure with hypoxia CHF (congestive heart failure) Hypoxia Hemoptysis Hypoxia Interstitial lung disease Chronic cough Flu vaccine need Increased sputum production Generalized anxiety disorder Diarrhea Varicose veins of both lower extremities Arthritis Secondary pulmonary arterial hypertension FRANCISCO JAVIER (obstructive sleep apnea) Pleural effusion due to CHF (congestive heart failure) (08/27/19) Diverticulitis Hypoxia Elevated troponin (04/07/19) PND (post-nasal drip) Transient ischemic attack Anemia in chronic kidney disease (CKD) CVA (cerebral vascular accident) Stenosis of left subclavian artery Chronic kidney disease, stage 3 Renal artery stenosis Paroxysmal atrial flutter Bilateral carotid artery stenosis Peripheral vascular occlusive disease Atherosclerosis of coronary artery of [place] heart without angina pectoris Essential (primary) hypertension Hyperlipidemia Chronic diastolic (congestive) heart failure GERD (gastroesophageal reflux disease) Gout Arthritis Home Medications ?Medication ?Instructions ?Recorded ?Last Taken ?Type aspirin 81 mg chewable tablet 81 mg PO QHS Heart 08/0204/10/24 History ascorbate calcium (vitamin C) 500 500 mg PO DAILY ewa min 09/28/20 Unknown History mg tablet nitroglycerin 0.4 mg sublingual 0.4 mg sublingual PRN PRN Angina 08/14/22 Unknown Rx tablet #25 tabs ferrous sulfate 325 mg (65 mg 325 mg PO BID supplement 01/16/23 04/11/24 History iron) tablet (Feosol) ezetimibe 10 mg tablet 10 mg PO QHS cholesterol #90 tabs 09/02/23 04/10/24 Rx hydralazine 100 mg tablet 100 mg PO TID #270 tabs 09/0204/11/24 Rx pirfenidone 267 mg tablet 801 mg PO TID 09/25/2304/11 History carvedilol 3.125 mg tablet 3.125 mg PO BID blood press ure #60 10/17/23 04/11/24 Rx tabs sertraline 50 mg tablet 50 mg PO DAILY mental health #90 11/05/23 04/11/24 Rx tabs atorvastatin 80 mg tablet 80 mg PO QHS for cholesterol #90 12/23/23 04/10/24 Rx TABLETS doxazosin 8 mg tablet 8 mg PO QHS #90 tabs 4 04/10/24 Rx amlodipine 10 mg tablet 10 mg PO DAILY blood pressur e #90 03/03/24 04/11/24 Rx tabs [id number] acid-vit 1 tab PO QDAY 03/23/24 04/11/24 History K-lycop 400 mcg-20 mcg-370 mcg tablet (Men's 50 Plus Multivitamin) isosorbide mononitrate 120 mg 120 mg PO QAM this is a dose 04/07/24 04/11/24 Rx tablet,extended release 24 hr increase #90 tabs Allergy/AdvReac Type Severity Reaction Status Date / Time No Known Allergies Allergy Verified 04/11/24 08:49 Family History Son CAD (coronary artery disease) Brother CAD (coronary artery disease) Diabetes Brother CAD (coronary artery disease) Diabetes Other Anemia Arthritis CVA (cerebral vascular accident) Hyperlipemia Hypertension Kidney disease Skin cancer Surgical History H/O basal cell carcinoma excision (09/2018) History of left common carotid artery stent placement (2003) History of stent insertion of renal artery (10/01/19) History of angioplasty of peripheral vessel History of left heart catheterization (08/13/12) H/O coronary artery bypass surgery (08/14/12) History of herniorrhaphy History of right-sided carotid endarterectomy (05/2016) H/O colonoscopy History of knee replacement Social History Smoking Status: Former smoker Tobacco: How many years used: 15 how long ago did patient quit smokin second hand exposure: No alcohol intake: current alcohol intake frequency: holidays/special occasions only substance use type: does not use caffeine: Yes ROS Constitutional Constitutional: Denies chills, fatigue, fever(s), malaise or weakness Eyes Eyes: Denies change in vision Cardiovascular Cardiovascular: Denies chest pain Respiratory/Chest Respiratory/Chest: Reports cough, shortness of breath at rest, shortness of breath with exertion and wheezing; Denies productive cough Gastrointestinal Gastrointestinal: Denies abdominal pain, constipation, diarrhea, nausea or vomiting Genitourinary Genitourinary: Denies dysuria Musculoskeletal Musculoskeletal: Denies arthralgias or myalgias Neurologic Neurologic: Denies dizziness or headache(s) Vital Signs Vital Signs Vital Signs: 04/11/24 08:48 04/11/24 08:49 04/11/24 08:53 Temperature 97.8 F 97.8 F Temperature Source Oral Oral Pulse Rate 57 L 57 L Respiratory Rate 18 18 Respiratory Effort Respiratory Depth Respiratory Pattern Blood Pressure 148/48 H 148/48 H Blood Pressure Mean 81 81 Pulse Ox 95 71 71 Oxygen Delivery Method High Flow Nasal Cannula Nasal Cannula Oxygen Flow Rate (L/min) 12 6 6 04/11/24 08:56 04/11/24 09:10 04/11/24 09:10 Temperature Temperature Source Pulse Rate 58 L Respiratory Rate 20 H Respiratory Effort Short of Breath Respiratory Depth Normal Respiratory Pattern Normal Tachypnea Blood Pressure Blood Pressure Mean Pulse Ox 98 Oxygen Delivery Method Nasal Cannula High Flow Oxygen Flow Rate (L/min) 6 10 04/11/24 10:05 04/11/24 11:10 Temperature 98.3 F 97.4 F L Temperature Source Oral Oral Pulse Rate 61 66 Respiratory Rate 17 18 Respiratory Effort Respiratory Depth Respiratory Pattern Blood Pressure 156/44 H 174/50 H Blood Pressure Mean 81 91 Pulse Ox 97 98 Oxygen Delivery Method High Flow High Flow Oxygen Flow Rate (L/min) 8 8 Weight Weight: 73.7 kg Body Mass Index (BMI) 24.7 Physical Exam Const alert, oriented x3, no apparent distress and average body habitus Constitutional Narrative: Pleasant elderly male, mildly fatigued appearing but otherwise sitting up comfortably in bed, breathing comfortably on 8 L high flow nasal cannula, conversing normally and in no acute distress. General Appearance: cooperative and comfortable HEENT normocephalic, head/scalp atraumatic, hearing grossly normal bilaterally, nasal mucous membranes and turbinates normal and moist oral mucous membranes Eyes PERRL, EOMs intact bilaterally and conjunctivae normal Neck full ROM Chest inspection of chest normal Resp normal respiratory effort and no use of accessory muscles Resp Narrative: Breathing notably on 8 L high flow nasal cannula. Mild wheezing noted in upper airways and mild crackles noted in bilateral lung bases, otherwise good air movement noted. Cardio regular rate, regular rhythm, no murmurs and peripheral pulses 2+ throughout GI normal to inspection, nondistended, normoactive bowel sounds, soft to palpation, non-tender and non-distended Back/Spine normal ROM Extremity normal to inspection, full ROM and no pedal edema Skin no rashes or lesions noted Psych mental status grossly normal Results Lab / Micro Data 04/11/24 09:10 04/11/24 09:10 Labs: Laboratory Results - last 24 hr 04/11/24 09:10: WBC 11.0, RBC 2.89 L, Hgb 9.1 L, Hct 29.0 L, MCV 100.3 H, MCH 31.5, MCHC 31.4 L, RDW Std Deviation 53.2 H, RDW Coeff of Lisa 14.7 H, Plt Count 221, MPV 9.8, Immature Gran % (Auto) 0.400, Neut % (Auto) 79.4 H, Lymph % (Auto) 8.3 L, [place] % (Auto) 7.4, Eos % (Auto) 3.7, Baso % (Auto) 0.8, Absolute Neuts (auto) 8.8 H, Absolute Lymphs (auto) 0.91, Nucleated RBC % 0, Sodium 140, P otassium 5.3 H, Chloride 116 H, Carbon Dioxide 18.0 L, Anion Gap 6, BUN 67 H, C reatinine 2.24 H, Estim Creat Clear Calc 26.29, Est GFR (MDRD) Af Amer 37 L, Est GFR (MDRD) Non-Af 30 L, BUN/Creatinine Ratio 29.9 H, Glucose 111 H, Calcium 8.5, Troponin I High Sens 296 H*, B-Natriuretic Peptide 1830.9 H Micro: Microbiology 04/11/24 09:16 Mucosa - Nasopharyngeal SARS-CoV-2, Influenza & RSV (PCR) - Final Imaging Radiology Impression Chest X-Ray 04/11/24 09:45 IMPRESSION: Stable abnormal imaging findings compared to priors. [facility] Assessment & Plan Assessment/Plan (1) Acute on chronic respiratory failure: (2) Elevated troponin: (3) Acute heart failure with preserved ejection fraction (HFpEF): PLAN: Plan Patient is a 78-year-old male who presented [facility] ED on 04/11/2024 with worsening shortness of breath. 1. Acute on chronic hypoxic respiratory failure suspected secondary to acute HFpEF exacerbation in setting of pulmonary fibrosis ? Admit under status to PCU. On baseline 3 L nasal cannula. Requiring 8 L high flow nasal cannula to maintain appropriate oxygen saturations on admit. BNP elevated and chest x-ray with volume overload noted consistent with heart failure exacerbation. Last echo in 2022 showed EF 65%, moderate concentric LV hypertrophy, moderate pulmonary hypertension. Will treat with IV Lasix 40 mg twice daily for now, monitor daily BMP and urine output. Did improve with breathing treatment and IV Solu-Medrol in the ED but lower concern for IPF exacerbation, will continue home inhalers and hold on further steroids. Wean supplemental oxygen as able. 2. Mild hyperkalemia ? Potassium 5.3 on admit, similar to previous values on recent labs. Presume secondary to chronic kidney disease. Monitor, no need to treat at this time. 3. Elevated troponin ? Troponin 296 on admit, repeat pending. EKG with no ischemic changes noted and patient with no chest pain. Very likely secondary to demand ischemia in setting of respiratory failure with heart failure exacerbation. Treatment as above. 4. CKD stage IV with chronic metabolic acidosis ? Creatinine 2.24 on admit, baseline 2.2-2.6. Bicarb 18, also at baseline. Treating with IV Lasix as noted above, monitor daily BMP and urine output. 5. Chronic anemia ? Hemoglobin 9.1 on admit, at baseline. Follow-up a.m. CBC. 6. History of CAD with CABG, hypertension, hyperlipidemia ? Continue home aspirin, atorvastatin, Zetia, Coreg, amlodipine, hydralazine, doxazosin and nitrate. 7. Anxiety/depression ? Stable. Continue home sertraline. DVT prophylaxis: Heparin subcu CODE STATUS: DNR CCA, DNI Expected disposition: Home, TBD Total clinical time spent by myself addressing the patient's medical issues, reviewing all the data, and collaborating with patient's care team: 75 minutes. Charges/Coding Visit Charges Inpatient E&M: 51917 Init Hosp L3
--- NOTE | 2024-04-11 12:25 | CASEMGMT ---
Care Management Face to Face with patient for initial transition planning/care coordination assessment in the ED.? This health science writer introduced self and role at [facility]. Patient alert and oriented. Patient willing to participate in assessment and is able to answer all questions appropriately.? Care providers, pharmacy, and demographics verified. Admitting Diagnosis: Acute Dyspnea Other diagnosis history: Including but not limited to: Stage III Chronic Kidney Disease, Anemia, AFib. CAD, HTN, CHF, FRANCISCO JAVIER, TIA, Arthritis. PCP: Dr. Dominguez Specialists: Patient sees a Felt Hat Steamer and a Department Mgr in [place] however wasn?t able to remember their names. Preferred Pharmacy: [facility] Insurance: Medicare, Part A and B Prescription Benefit:?Yes Living Will/HPOA: Yes; patient?s carolina Astudillo and Nick Zimmer. LNOK: Patient?s , Rita Zimmer and carolina Zimmer.? Patient has 2 sons that are .? Living Arrangements: Patient and patient?s reside in a single-story home. Patient denied any environmental barriers.? Patient has 2 steps that he has to go up/down when entering/exiting his home however patient denied any issues with navigating steps. Transportation: Both patient and patient?s drive. DME: Oxygen, wheelchair, grab bar in shower and shower chair. HHC: Not previously used and not needed at this time. SNF/Rehab: Patient denied any previous SNF placement however reported he went to rehab in [place] following a previous left knee replacement.? Patient unable to remember name of facility where rehab took place. Community Resources: Denied any and denied a current need. Behavioral Health History: Per medical records review, patient has a history of anxiety and depression. Patient goals: Patient wishes to discharge home, denies need for home health care at this time. Patient states he has no further needs or concerns at this time. Disposition Plan: admission to acute; RN CM/SW to follow for discharge planning needs that may arise. Ansley Evans, NURSE PRACTITIONER PHYSICIAN ASSISTANT, TELEPHONIC NURSE CASE MANAGER
[2024-04-11 13:10] LABS: Procalcitonin 0.13 ng/mL (0.00-0.09)
[2024-04-11] MEDS: 0.9% Saline Lock 10 ML Syringe IV ×2 (17:00→23:00)
[2024-04-11] MEDS: Carvedilol 3.125 MG TABLET PO (17:01)
[2024-04-11] MEDS: hydrALAZINE 50 MG Tablet 100 MG PO ×2 (17:56→22:57)
[2024-04-11] MEDS: PIRFENIDONE 801 MG PO (18:35)
[2024-04-11] MEDS: Doxazosin 4 MG Tablet 8 MG PO (22:59)
[2024-04-11] MEDS: Atorvastatin Calcium 80 MG Tablet PO (22:59)
[2024-04-11] MEDS: Aspirin 81 MG TAB.CHEW PO (22:59)
[2024-04-11] MEDS: Heparin Injection (Vial) 5,000 UNIT/ML VIAL 5000 UNIT SC (23:00)
[2024-04-11] MEDS: Ezetimibe 10 MG Tablet PO (23:00)
[2024-04-12] VITALS (14 sets, daily range): BP systolic 155–187; BP diastolic 42–67; PULSE 67–92; RESP 16–18; TEMP 36.6; O2SAT 94–98; BMI 20.8
[2024-04-12] MEDS: Heparin Injection (Vial) 5,000 UNIT/ML VIAL 5000 UNIT SC ×3 (05:07→21:50)
[2024-04-12] MEDS: hydrALAZINE 50 MG Tablet 100 MG PO ×3 (05:07→21:48)
[2024-04-12 05:08] LABS: Hematocrit 27.8 % (40-54); Hemoglobin 8.7 g/dL (13.0-16.5); Mean Corp Hgb Conc 31.3 g/dL (32-36); Mean Corpuscular Hgb 31.3 pg (27.0-32.0); Mean Platelet Vol. 10.1 fl (6.2-12.0); Platelet Count 248 K/mm3 (150-450); RBC Distribution Width CV 14.7 % (11.6-14.6); RBC Distribution Width SD 53.6 fl (35.1-43.9); Red Blood Count 2.78 M/mm3 (4.6-6.2); White Blood Count 4.8 K/mm3 (4.4-11.0)
[2024-04-12] MEDS: 0.9% Saline Lock 10 ML Syringe IV ×5 (05:08→21:50)
[2024-04-12 05:18] LABS: Anion Gap 9 (5-15); BUN 72 mg/dL (7-18); BUN/Creat Ratio 32.3 RATIO (10-20); Calcium,Total 8.5 mg/dL (8.5-10.1); Chloride 114 mmol/L (98-107); Creatinine, Serum 2.23 mg/dL (0.70-1.30); EST Glomerular Filtration Rate 30 mL/min (>60); Est Glom Filt Rate - Afr Amer 37 mL/min (>60); Glucose 117 mg/dL (74-106); Potassium 5.4 mmol/L (3.5-5.1); Sodium Level 139 mmol/L (136-145)
[2024-04-12] MEDS: Ipratropium/Albuterol Sulfate 3 ML AMPUL.NEB INHALATION ×4 (07:11→19:28)
[2024-04-12] MEDS: Sertraline 50 MG Tablet PO (07:49)
[2024-04-12] MEDS: Carvedilol 3.125 MG TABLET PO ×2 (07:49→15:57)
[2024-04-12] MEDS: amLODIPine 10 MG Tablet PO (07:49)
[2024-04-12] MEDS: PIRFENIDONE 801 MG PO ×3 (07:50→18:30)
[2024-04-12 09:38] LABS: Troponin-I HS 224 pg/mL (3.0-78.0)
[2024-04-12] MEDS: Furosemide 40 MG/4 ML Vial IV ×2 (10:12→18:31)
--- NOTE | 2024-04-12 10:39 | PN.HOSP_ITS ---
Reason for Visit Reason for Visit: Diagnoses Acute diastolic (congestive) heart failure (04/11/24) Acute and chronic respiratory failure, unspecified whether with hypoxia or hypercapnia (04/11/24) Other specified abnormal findings of blood chemistry (04/11/24) Subjective Subjective Saw patient at bedside this morning. Sitting back comfortably in bedside chair, in no acute distress. Had good energy level this morning. Breathing comfortably on 5 L nasal cannula at rest. Continues to feel slightly more short of breath than his normal, especially with exertion. Has had good urine output on IV Lasix. No other new concerns today. Objective Data Objective Data Vital Signs: Vital Signs Temp Pulse Resp BP Pulse Ox O2 Del Method O2 Flow Rate 97.9 F 69 18 156/42 H 94 Nasal Cannula 5 04/12/24 07:45 04/12/24 10:13 04/12/24 10:13 04/12/24 10:13 04/12/24 10:13 04/12/24 10:13 04/12/24 10:13 Oxygen Flow Rate (L/min) 5 Oxygen Delivery Method Nasal Cannula Weight: 62.1 kg Body Mass Index (BMI) 20.8 Intake & Output: Intake and Output for Last 24 Hours 04/10/24 04/11/24 04/12/24 23:59 23:59 23:59 Intake Total 400 / 400 Output Total 1250 / 1250 Balance 400 / -700 -1250 / -1250 Lab / Micro Data 04/12/24 03:36 04/12/24 03:36 Labs: Laboratory Results - last 24 hr 04/11/24 01:40: Procalcitonin 0.13 H 04/12/24 03:36: WBC 4.8, RBC 2.78 L, Hgb 8.7 L, Hct 27.8 L, MCV 100.0 H, MCH 31.3, MCHC 31.3 L, RDW Std Deviation 53.6 H, RDW Coeff of Lisa 14.7 H, Plt Count 248, MPV 10.1, Sodium 139, Potassium 5.4 H, Chloride 114 H, Carbon Dioxide 16.0 L, Anion Gap 9, BUN 72 H, Creatinine 2.23 H, Estim Creat Clear Calc 24.10, Est GFR (MDRD) Af Amer 37 L, Est GFR (MDRD) Non-Af 30 L, BUN/Creatinine Ratio 32.3 H , Glucose 117 H, Calcium 8.5 04/12/24 08:20: Troponin I High Sens 224 H* Micro: Microbiology 04/11/24 16:35 Mucosa - Nasopharyngeal Respiratory Panel (PCR) - Final 04/11/24 09:16 Mucosa - Nasopharyngeal SARS-CoV-2, Influenza & RSV (PCR) - Final Rhythm Strip Rhythm Strip: Sinus Rhythm Rate: 70 Ectopy: None Physical Exam Const alert, oriented x3, no apparent distress and average body habitus Constitutional Narrative: Pleasant elderly male, energy improved from admission, sitting up comfortably in bedside chair, conversing normally and in no acute distress. General Appearance: cooperative and comfortable HEENT normocephalic, head/scalp atraumatic, hearing grossly normal bilaterally, nasal mucous membranes and turbinates normal and moist oral mucous membranes Eyes PERRL, EOMs intact bilaterally and conjunctivae normal Neck full ROM Chest inspection of chest normal Resp normal respiratory effort and no use of accessory muscles Resp Narrative: Breathing notably on 5 L nasal cannula. Mild crackles noted in bilateral lung bases but otherwise good air movement throughout and no wheezing noted today. Improving. Cardio regular rate, regular rhythm, no murmurs and peripheral pulses 2+ throughout GI normal to inspection, nondistended, normoactive bowel sounds, soft to palpation, non-tender and non-distended Back/Spine normal ROM Extremity normal to inspection, full ROM and no pedal edema Skin no rashes or lesions noted Psych mental status grossly normal Assessment & Plan Assessment/Plan (1) Acute on chronic respiratory failure: (2) Elevated troponin: (3) Acute heart failure with preserved ejection fraction (HFpEF): PLAN: Plan Patient is a 78-year-old male who presented [facility] ED on 04/11/2024 with worsening shortness of breath. 1. Acute on chronic hypoxic respiratory failure suspected secondary to acute HFpEF exacerbation in setting of pulmonary fibrosis ? On baseline 3 L nasal cannula. Requiring 8 L high flow nasal cannula to maintain appropriate oxygen saturations on admit. BNP elevated and chest x-ray with volume overload noted consistent with heart failure exacerbation. Last echo in 2022 showed EF 65%, moderate concentric LV hypertrophy, moderate pulmonary hypertension. Lower concern for true IPF exacerbation but did have improvement with wheezing in the ED with breathing treatment and IV steroids. Will continue IV steroids through 04/12 and transition to p.o. steroids on 04/13 with plan for 5-day course of steroids total. Continue to wean submental oxygen as able. Continue home inhalers. Will plan for O2 ambulatory testing on 04/13 in preparation for possible discharge home. 2. Mild hyperkalemia ? Potassium 5.3 on admit, similar to previous values on recent labs. Presume secondary to chronic kidney disease. Monitor, no need to treat at this time. 3. Elevated troponin ? Troponin 296 on admit, repeat 224. EKG with no ischemic changes noted and patient with no chest pain. Very likely secondary to demand ischemia in setting of respiratory failure with heart failure exacerbation. Treatment as above. 4. CKD stage IV with chronic metabolic acidosis ? Creatinine 2.24 on admit, baseline 2.2-2.6. Bicarb 18, also at baseline. Treating with IV Lasix as noted above and kidney function has remained stable, continue to monitor daily BMP and urine output. 5. Chronic anemia ? Hemoglobin stable at baseline around 9. 6. History of CAD with CABG, hypertension, hyperlipidemia ? Continue home aspirin, atorvastatin, Zetia, Coreg, amlodipine, hydralazine, doxazosin and nitrate. 7. Anxiety/depression ? Stable. Continue home sertraline. DVT prophylaxis: Heparin subcu CODE STATUS: DNR CCA, DNI Expected disposition: Home, 1 to 2 days Total clinical time spent by myself addressing the patient's medical issues, reviewing all the data, and collaborating with patient's care team: 35 minutes. Charges/Coding Visit Charges Inpatient E&M: 79302 Subs Hosp L2
[2024-04-12] MEDS: Ferrous Sulfate 325 MG Tablet PO (12:02)
[2024-04-12 12:27] LABS: Bedside Glucose 173 mg/dL (74-106)
[2024-04-12] MEDS: Sodium Bicarbonate 650 MG Tablet 1300 MG PO ×2 (15:57→21:49)
[2024-04-12] MEDS: Sodium Polystyrene Sulfonate 15 GM/60 ML UDC PO (16:10)
[2024-04-12] MEDS: Aspirin 81 MG TAB.CHEW PO (21:48)
[2024-04-12] MEDS: Doxazosin 4 MG Tablet 8 MG PO (21:49)
[2024-04-12] MEDS: Atorvastatin Calcium 80 MG Tablet PO (21:49)
[2024-04-12] MEDS: Ezetimibe 10 MG Tablet PO (21:49)
[2024-04-12] MEDS: MELATONIN 3 MG TABLET PO (22:01)
[2024-04-13] VITALS (15 sets, daily range): BP systolic 143–166; BP diastolic 45–66; PULSE 60–81; RESP 16–20; TEMP 36.4–36.6; O2SAT 84–97; BMI 20.9
[2024-04-13] MEDS: Sodium Bicarbonate 650 MG Tablet 1300 MG PO ×3 (06:05→22:10)
[2024-04-13] MEDS: hydrALAZINE 50 MG Tablet 100 MG PO ×3 (06:06→22:11)
[2024-04-13] MEDS: Heparin Injection (Vial) 5,000 UNIT/ML VIAL 5000 UNIT SC ×3 (06:06→22:11)
[2024-04-13 06:35] LABS: Hematocrit 27.7 % (40-54); Hemoglobin 8.9 g/dL (13.0-16.5); Mean Corp Hgb Conc 32.1 g/dL (32-36); Mean Corpuscular Hgb 31.4 pg (27.0-32.0); Mean Corpuscular Volume 97.9 fL (80-94); Mean Platelet Vol. 10.1 fl (6.2-12.0); Platelet Count 258 K/mm3 (150-450); RBC Distribution Width SD 53.3 fl (35.1-43.9); Red Blood Count 2.83 M/mm3 (4.6-6.2); White Blood Count 9.8 K/mm3 (4.4-11.0)
[2024-04-13 06:56] LABS: Anion Gap 9 (5-15); BUN 81 mg/dL (7-18); BUN/Creat Ratio 34.2 RATIO (10-20); Calcium,Total 8.1 mg/dL (8.5-10.1); Chloride 112 mmol/L (98-107); Creatinine, Serum 2.37 mg/dL (0.70-1.30); EST Glomerular Filtration Rate 28 mL/min (>60); Est Glom Filt Rate - Afr Amer 34 mL/min (>60); Estimated Creatinine Clearance 22.56 ml/min; Glucose 155 mg/dL (74-106); Potassium 4.9 mmol/L (3.5-5.1); Sodium Level 139 mmol/L (136-145)
[2024-04-13] MEDS: Ipratropium/Albuterol Sulfate 3 ML AMPUL.NEB INHALATION ×4 (06:57→19:48)
[2024-04-13] MEDS: PIRFENIDONE 801 MG PO ×3 (08:24→18:50)
[2024-04-13] MEDS: Carvedilol 3.125 MG TABLET PO ×2 (08:24→16:14)
[2024-04-13] MEDS: amLODIPine 10 MG Tablet PO (08:25)
[2024-04-13] MEDS: Sertraline 50 MG Tablet PO (08:25)
[2024-04-13] MEDS: predniSONE 20 MG Tablet 40 MG PO (08:25)
--- NOTE | 2024-04-13 09:29 | PCM.PN.HOSP ---
Reason for Visit Reason for Visit: Diagnoses Acute diastolic (congestive) heart failure (04/11/24) Acute and chronic respiratory failure, unspecified whether with hypoxia or hypercapnia (04/11/24) Other specified abnormal findings of blood chemistry (04/11/24) Subjective Subjective No new events, but required 15 liters with activity (he ususally goes up to 8 with ambulation at home). Objective Data Objective Data Vital Signs: Vital Signs Temp Pulse Resp BP Pulse Ox O2 Del Method O2 Flow Rate 36.6 C 81 18 143/55 H 93 Nasal Cannula 3 04/13/24 08:20 04/13/24 08:20 04/13/24 08:20 04/13/24 08:20 04/13/24 08:20 04/13/24 08:29 04/13/24 08:29 Oxygen Flow Rate (L/min) 3 Oxygen Delivery Method Nasal Cannula Weight: 62.681 kg Body Mass Index (BMI) 20.9 Intake & Output: Intake and Output for Last 24 Hours 04/11/24 04/12/24 04/13/24 23:59 23:59 23:59 Intake Total 400 / 400 960 / 960 Output Total 2200 / 2200 50 / 50 Balance 400 / -700 -1240 / -1240 -50 / -50 Lab / Micro Data 04/13/24 05:44 04/13/24 05:44 Labs: Laboratory Results - last 24 hr 04/12/24 08:20: Troponin I High Sens 224 H* 04/12/24 12:00: POC Glucose 173 H 04/13/24 05:44: WBC 9.8, RBC 2.83 L, Hgb 8.9 L, Hct 27.7 L, MCV 97.9 H, MCH 31.4, MCHC 32.1, RDW Std Deviation 53.3 H, RDW Coeff of Lisa 15.0 H, Plt Count 258, MPV 10.1, Sodium 139, Potassium 4.9, Chloride 112 H, Carbon Dioxide 19.0 L, Anion Gap 9, BUN 81 H, Creatinine 2.37 H, Estim Creat Clear Calc 22.56, Est GFR (MDRD) Af Amer 34 L, Est GFR (MDRD) Non-Af 28 L, BUN/Creatinine Ratio 34.2 H, Glucose 155 H, Calcium 8.1 L Micro: Microbiology 04/11/24 16:35 Mucosa - Nasopharyngeal Respiratory Panel (PCR) - Final 04/11/24 09:16 Mucosa - Nasopharyngeal SARS-CoV-2, Influenza & RSV (PCR) - Final Rhythm Strip Rhythm Strip: Sinus Rhythm Rate: 70 Ectopy: None Physical Exam Const alert and no apparent distress HEENT head/scalp atraumatic and moist oral mucous membranes Resp normal respiratory effort, no retractions, no use of accessory muscles and clear to auscultation bilaterally Cardio regular rate, regular rhythm, S1 normal heart sound and S2 normal heart sound GI normal to inspection, nondistended, normoactive bowel sounds, soft to palpation, non-tender and non-distended Extremity normal to inspection and full ROM Neuro Sensorium / Orientation: awake and alert Assessment & Plan Assessment/Plan (1) Acute on chronic respiratory failure: (2) Elevated troponin: (3) Acute heart failure with preserved ejection fraction (HFpEF): PLAN: Plan Acute on chronic hypoxic respiratory failure suspected secondary to acute HFpEF exacerbation in setting of pulmonary fibrosis On baseline 3 L nasal cannula. Requiring 8 L high flow nasal cannula to maintain appropriate oxygen saturations on admit. BNP elevated and chest x-ray with volume overload noted consistent with heart failure exacerbation. Last echo in 2022 showed EF 65%, moderate concentric LV hypertrophy, moderate pulmonary hypertension. No significant improvement. Will resume methylpred 40 Q12. Continue with IV furosemide 40 BID Elevated troponin Troponin 296 on admit, repeat 224. EKG with no ischemic changes noted and patient with no chest pain. Very likely secondary to demand ischemia in setting of respiratory failure with heart failure exacerbation. Treatment as above. CKD stage IV with chronic metabolic acidosis Creatinine 2.24 on admit, baseline 2.2-2.6. Bicarb 18, also at baseline. Treating with IV Lasix as noted above and kidney function has remained stable, continue to monitor daily BMP and urine output. Chronic conditions: Chronic anemia? Hemoglobin stable at baseline around 9. History of CAD with CABG, hypertension, hyperlipidemia? Continue home aspirin, atorvastatin, Zetia, Coreg, amlodipine, hydralazine, doxazosin and nitrate. Anxiety/depression? Stable. Continue home sertraline. DVT prophylaxis: Heparin subcu CODE STATUS: DNR CCA, DNI Expected disposition: TBD when his ambulatory oxygen around 8 l/m Charges/Coding Visit Charges Inpatient E&M: 45624 Subs Hosp L2
[2024-04-13] MEDS: Sodium Polystyrene Sulfonate 15 GM/60 ML UDC PO (10:36)
[2024-04-13] MEDS: Furosemide 40 MG/4 ML Vial IV ×2 (10:37→18:51)
[2024-04-13] MEDS: Ferrous Sulfate 325 MG Tablet PO (12:58)
--- NOTE | 2024-04-13 15:01 | CHAPLAIN ---
Type of Pastoral Visit _x__ Initial Visit ___ Follow-up Visit ___ On-call Visit ___ General Patient Visit ___ Spiritual Assessment ___ Family Conference ___ Bereavement ___ Rapid Response ___ Code Blue ___ Other (describe below) Pastoral Care Referral From _x__ Patient ___ Family ___ Nurse ___ Physician ___ Dental Laboratory Technician ___ Computer System Technician ___ Other (describe below) Sacrament/Intervention _x__ Active listening ___ Anointing ___ Holiness ___ Bereavement ___ Communion _x__ Lisa exploration ___ ___ Life review ___ Prayer ___ Reconciliation ___ Sacrament of Sick ___ Supportive presence ___ Wedding ___ Other (describe below) Pastoral Comments patient and spouse are in the room; pt is talkative as is his ; mostly the conversation is directed by them and their new jainism start/family; pt says he is not worried and that,I'm just getting things checked out;
[2024-04-13] MEDS: Atorvastatin Calcium 80 MG Tablet PO (22:10)
[2024-04-13] MEDS: Doxazosin 4 MG Tablet 8 MG PO (22:11)
[2024-04-13] MEDS: Ezetimibe 10 MG Tablet PO (22:11)
[2024-04-13] MEDS: Aspirin 81 MG TAB.CHEW PO (22:11)
[2024-04-13] MEDS: 0.9% Saline Lock 10 ML Syringe IV (22:14)
[2024-04-14] VITALS (11 sets, daily range): BP systolic 129–168; BP diastolic 48–93; PULSE 68–92; RESP 16–21; TEMP 36.6–36.8; O2SAT 92–96; BMI 21.8
[2024-04-14 04:10] LABS: Absolute Lymphocyte Count 0.46 X10^3/uL (0.83-4.51); Absolute Neutrophil Count 9.7 X10^3/uL (2.0-7.7); Basophil# 0.01 X10^3/uL; Basophil% 0.1 % (0-1); Hematocrit 25.8 % (40-54); Hemoglobin 8.3 g/dL (13.0-16.5); Lymphocyte # 0.46 X10^3/ul (0.83-4.51); Lymphocyte % 4.4 % (19-41); Mean Corp Hgb Conc 32.2 g/dL (32-36); Mean Corpuscular Volume 96.3 fL (80-94); Mean Platelet Vol. 10.2 fl (6.2-12.0); Monocyte# 0.23 X10^3/uL; Monocyte% 2.2 % (0-10); NRBC Flagged by Analyzer 0 % (0-5); Neutrophil % 92.3 % (47-70); POSITIVE DIFFERENTIAL YES; Platelet Count 242 K/mm3 (150-450); RBC Distribution Width CV 15.2 % (11.6-14.6); RBC Distribution Width SD 52.4 fl (35.1-43.9); Red Blood Count 2.68 M/mm3 (4.6-6.2); White Blood Count 10.5 K/mm3 (4.4-11.0)
[2024-04-14 05:06] LABS: Anion Gap 9 (5-15); BUN 82 mg/dL (7-18); BUN/Creat Ratio 33.3 RATIO (10-20); Calcium,Total 7.8 mg/dL (8.5-10.1); Chloride 108 mmol/L (98-107); Creatinine, Serum 2.46 mg/dL (0.70-1.30); EST Glomerular Filtration Rate 27 mL/min (>60); Est Glom Filt Rate - Afr Amer 33 mL/min (>60); Estimated Creatinine Clearance 22.82 ml/min; Glucose 145 mg/dL (74-106); Sodium Level 138 mmol/L (136-145)
[2024-04-14] MEDS: Sodium Bicarbonate 650 MG Tablet 1300 MG PO ×2 (06:00→13:21)
[2024-04-14] MEDS: hydrALAZINE 50 MG Tablet 100 MG PO ×2 (06:00→13:21)
[2024-04-14] MEDS: Heparin Injection (Vial) 5,000 UNIT/ML VIAL 5000 UNIT SC ×2 (06:01→13:21)
[2024-04-14] MEDS: Ipratropium/Albuterol Sulfate 3 ML AMPUL.NEB INHALATION ×3 (07:05→14:29)
[2024-04-14] MEDS: PIRFENIDONE 801 MG PO ×2 (08:52→12:08)
[2024-04-14] MEDS: Carvedilol 3.125 MG TABLET PO ×2 (08:53→16:28)
[2024-04-14] MEDS: amLODIPine 10 MG Tablet PO (08:54)
[2024-04-14] MEDS: Sertraline 50 MG Tablet PO (08:55)
[2024-04-14] MEDS: Furosemide 40 MG/4 ML Vial IV (09:00)
[2024-04-14] MEDS: Sodium Polystyrene Sulfonate 15 GM/60 ML UDC PO (09:00)
--- NOTE | 2024-04-14 09:58 | PCM.PN.HOSP ---
Reason for Visit Reason for Visit: Diagnoses Acute diastolic (congestive) heart failure (04/11/24) Acute and chronic respiratory failure, unspecified whether with hypoxia or hypercapnia (04/11/24) Other specified abnormal findings of blood chemistry (04/11/24) Subjective Subjective Feels well. Objective Data Objective Data Vital Signs: Vital Signs Temp Pulse Resp BP Pulse Ox O2 Del Method O2 Flow Rate 36.6 C 68 16 168/50 H 93 Nasal Cannula 3 04/14/24 08:49 04/14/24 08:49 04/14/24 08:49 04/14/24 08:49 04/14/24 08:49 04/14/24 08:49 04/14/24 08:49 Oxygen Flow Rate (L/min) 3 Oxygen Delivery Method Nasal Cannula Weight: 65.2 kg Body Mass Index (BMI) 21.8 Intake & Output: Intake and Output for Last 24 Hours 04/12/24 04/13/24 04/14/24 23:59 23:59 23:59 Intake Total 960 / 960 1280 / 1280 120 / 120 Output Total 2200 / 2200 310 / 310 Balance -1240 / -1240 970 / 970 120 / 120 Lab / Micro Data 04/14/24 03:16 04/14/24 03:16 Labs: Laboratory Results - last 24 hr 04/14/24 03:16: WBC 10.5, RBC 2.68 L, Hgb 8.3 L, Hct 25.8 L, MCV 96.3 H, MCH 31.0, MCHC 32.2, RDW Std Deviation 52.4 H, RDW Coeff of Lisa 15.2 H, Plt Count 242, MPV 10.2, Immature Gran % (Auto) 1.000 H, Neut % (Auto) 92.3 H, Lymph % (Auto) 4.4 L, [place] % (Auto) 2.2, Eos % (Auto) 0.0, Baso % (Auto) 0.1, Absolute Neuts (auto) 9.7 H, Absolute Lymphs (auto) 0.46 L, Nucleated RBC % 0, Sodium 138, Potassium 4.0, Chloride 108 H, Carbon Dioxide 21.0, Anion Gap 9, BUN 82 H, Creatinine 2.46 H, Estim Creat Clear Calc 22.82, Est GFR (MDRD) Af Amer 33 L, Est GFR (MDRD) Non-Af 27 L, BUN/Creatinine Ratio 33.3 H, Glucose 145 H, Calcium 7.8 L Micro: Microbiology 04/11/24 16:35 Mucosa - Nasopharyngeal Respiratory Panel (PCR) - Final 04/11/24 09:16 Mucosa - Nasopharyngeal SARS-CoV-2, Influenza & RSV (PCR) - Final Rhythm Strip Rhythm Strip: Sinus Rhythm Rate: 70 Ectopy: None Physical Exam Const alert and no apparent distress Resp normal respiratory effort, no retractions, no use of accessory muscles and clear to auscultation bilaterally Resp Narrative: diminished breath sounds. Cardio regular rate, regular rhythm, S1 normal heart sound and S2 normal heart sound Extremity normal to inspection and full ROM Neuro Sensorium / Orientation: awake and alert Assessment & Plan Assessment/Plan (1) Acute on chronic respiratory failure: (2) Elevated troponin: (3) Acute heart failure with preserved ejection fraction (HFpEF): PLAN: Plan Acute on chronic hypoxic respiratory failure suspected secondary to acute HFpEF exacerbation in setting of pulmonary fibrosis On baseline 3 L nasal cannula. Requiring 8 L high flow nasal cannula to maintain appropriate oxygen saturations on admit. BNP elevated and chest x-ray with volume overload noted consistent with heart failure exacerbation. Last echo in 2022 showed EF 65%, moderate concentric LV hypertrophy, moderate pulmonary hypertension. No significant improvement. Will resume methylpred 40 Q12. Continue with IV furosemide 40 BID change to prednisone taper. Ambulator pulse ox, he required 2 liters w rest and 6 liters with activity. Elevated troponin Troponin 296 on admit, repeat 224. EKG with no ischemic changes noted and patient with no chest pain. Very likely secondary to demand ischemia in setting of respiratory failure with heart failure exacerbation. Treatment as above. CKD stage IV with chronic metabolic acidosis Creatinine 2.24 on admit, baseline 2.2-2.6. Bicarb 18, also at baseline. Treating with IV Lasix as noted above and kidney function has remained stable, continue to monitor daily BMP and urine output. Chronic conditions: Chronic anemia? Hemoglobin stable at baseline around 9. History of CAD with CABG, hypertension, hyperlipidemia? Continue home aspirin, atorvastatin, Zetia, Coreg, amlodipine, hydralazine, doxazosin and nitrate. Anxiety/depression? Stable. Continue home sertraline. DVT prophylaxis: Heparin subcu CODE STATUS: DNR CCA, DNI Expected disposition: DC home.
[2024-04-14] MEDS: Ferrous Sulfate 325 MG Tablet PO (12:08)
--- NOTE | 2024-04-14 15:44 | PCM.DC.SUM ---
Providers Date of Admission: 04/11/24 Primary Care Physician: Dr. Virginie Lockhart MD Reason For Visit: ACUTE ON CHRONIC RESPIRATORY FAILURE Diagnosis Discharge Diagnosis (1) Acute on chronic respiratory failure: Status: Chronic Code(s): J96.20 - Acute and chronic respiratory failure, unspecified whether with hypoxia or hypercapnia (2) Elevated troponin: Status: Acute Code(s): R79.89 - Other specified abnormal findings of blood chemistry Plan Acute on chronic hypoxic respiratory failure suspected secondary to acute HFpEF exacerbation in setting of pulmonary fibrosis On baseline 3 L nasal cannula. Requiring 8 L high flow nasal cannula to maintain appropriate oxygen saturations on admit. BNP elevated and chest x-ray with volume overload noted consistent with heart failure exacerbation. Last echo in 2022 showed EF 65%, moderate concentric LV hypertrophy, moderate pulmonary hypertension. No significant improvement. Will resume methylpred 40 Q12. Continue with IV furosemide 40 BID change to prednisone taper. Ambulator pulse ox, he required 2 liters w rest and 6 liters with activity. DC furosemide give CKD. Elevated troponin Troponin 296 on admit, repeat 224. EKG with no ischemic changes noted and patient with no chest pain. Very likely secondary to demand ischemia in setting of respiratory failure with heart failure exacerbation. Treatment as above. CKD stage IV with chronic metabolic acidosis Creatinine 2.24 on admit, baseline 2.2-2.6. Bicarb 18, also at baseline. Treating with IV Lasix as noted above and kidney function has remained stable, continue to monitor daily BMP and urine output. Chronic conditions: Chronic anemia? Hemoglobin stable at baseline around 9. History of CAD with CABG, hypertension, hyperlipidemia? Continue home aspirin, atorvastatin, Zetia, Coreg, amlodipine, hydralazine, doxazosin and nitrate. Anxiety/depression? Stable. Continue home sertraline. DVT prophylaxis: Heparin subcu CODE STATUS: DNR CCA, DNI Expected disposition: DC home. Medications at Discharge Home Medications aspirin 81 mg chewable tablet 81 mg PO QHS Heart 08/03/19 ascorbate calcium (vitamin C) 500 mg tablet 500 mg PO DAILY vitamin 09/28/20 nitroglycerin 0.4 mg sublingual tablet 0.4 mg sublingual PRN PRN Angina #25 tabs 08/14/22 ferrous sulfate 325 mg (65 mg iron) tablet (Feosol) 325 mg PO BID supplement 01/16/23 ezetimibe 10 mg tablet 10 mg PO QHS cholesterol #90 tabs 09/02/23 hydralazine 100 mg tablet 100 mg PO TID #270 tabs 09/25/23 pirfenidone 267 mg tablet 801 mg PO TID 09/25/23 carvedilol 3.125 mg tablet 3.125 mg PO BID blood pressure #60 tabs 10/17/23 sertraline 50 mg tablet 50 mg PO DAILY mental health #90 tabs 11/05/23 atorvastatin 80 mg tablet 80 mg PO QHS for cholesterol #90 TABLETS 12/23/23 doxazosin 8 mg tablet 8 mg PO QHS #90 tabs 12/25/23 amlodipine 10 mg tablet 10 mg PO DAILY blood pressure #90 tabs 03/03/24 [id number] acid-vit K-lycop 400 mcg-20 mcg-370 mcg tablet (Men's 50 Plus Multivitamin) 1 tab PO QDAY 03/23/24 isosorbide mononitrate 120 mg tablet,extended release 24 hr 120 mg PO QAM this is a dose increase #90 tabs 04/07/24 sodium bicarbonate 650 mg tablet 1,300 mg PO TID kidneys 04/12/24 sodium polystyrene sulfonate 15 gram-sorbitol 20 gram/60 mL oral susp (SPS (with sorbitol)) 60 ml PO DAILY high potassium 04/12/24 prednisone 10 mg tablet 10 mg PO DAILY #30 tabs 04/14/24 Hospital Course Operations None Summary of Care Provided Minutes Spent on Discharge: 32 Weight / BMI Weight Weight: 65.2 kg Body Mass Index (BMI) 21.8 ABG / Lab / Microbiology Data 04/14/24 03:16 04/14/24 03:16 Laboratory: Laboratory Results - last 24 hr 04/14/24 03:16: WBC 10.5, RBC 2.68 L, Hgb 8.3 L, Hct 25.8 L, MCV 96.3 H, MCH 31.0, MCHC 32.2, RDW Std Deviation 52.4 H, RDW Coeff of Lisa 15.2 H, Plt Count 242, MPV 10.2, Immature Gran % (Auto) 1.000 H, Neut % (Auto) 92.3 H, Lymph % (Auto) 4.4 L, [place] % (Auto) 2.2, Eos % (Auto) 0.0, Baso % (Auto) 0.1, Absolute Neuts (auto) 9.7 H, Absolute Lymphs (auto) 0.46 L, Nucleated RBC % 0, Sodium 138, Potassium 4.0, Chloride 108 H, Carbon Dioxide 21.0, Anion Gap 9, BUN 82 H, Creatinine 2.46 H, Estim Creat Clear Calc 22.82, Est GFR (MDRD) Af Amer 33 L, Est GFR (MDRD) Non-Af 27 L, BUN/Creatinine Ratio 33.3 H, Glucose 145 H, Calcium 7.8 L Microbiology: Microbiology 04/11/24 16:35 Mucosa - Nasopharyngeal Respiratory Panel (PCR) - Final 04/11/24 09:16 Mucosa - Nasopharyngeal SARS-CoV-2, Influenza & RSV (PCR) - Final D/C Instructions Discharge Diet: No restrictions DC O2, CPAP, BIPAP Needs RN Home O2 Qualification: Home O2 Qualification: Is the patient on home oxygen Yes 04/14/24 12:09 Home O2 Qualification: AT REST 1-Pulse Ox at rest 92 04/14/24 12:09 1- Oxygen flow rate at rest 2 04/14/24 12:09 2-Pulse Ox at rest 90 04/13/24 10:34 2- Oxygen flow rate at rest 3 04/13/24 10:34 Home O2 Qualification: WITH AMBULATION 1- Pulse Ox with ambulation 92 04/14/24 12:09 1- Oxygen Flow Rate with 6 04/14/24 12:09 ambulation 2- Pulse Ox with ambulation 84 04/13/24 10:34 2- Oxygen Flow Rate with 8 04/13/24 10:34 ambulation 3- Pulse Ox with ambulation 90 04/13/24 10:34 3- Oxygen Flow Rate with 15 04/13/24 10:34 ambulation Home O2 Discharge instructions: Yes Type of respiratory needs?: Oxygen Oxygen frequency: With Ambulation Oxygen liters per minute during Ambulation: 6 DC home with Oxygen: Yes Home O2 MD Review: I have reviewed the oxygen testing, and the patient qualifies for home oxygen equipment and portability. The patient is mobile in the home and the community. Meaningful Use Info Meaningful Use Meaningful Use Diagnoses (Choose all that apply): None applicable Ischemic Stroke Statin Dosing Therapy Reference: STATIN DOSE THERAPY REFERENCE: * Patients > 75 years receive moderate or high dose statin therapy. * Patients 75 years or YOUNGER should receive HIGH intensity statin dose unless contraindicated. You will be required to document reason for non-treatment if statin daily dose does not meet guidelines. HIGH DOSE STATIN THERAPY DAILY Atorvastatin > than or = to 40 mg Rosuvastatin > than or = to 20 mg Amlodipine + Atorvastatin > than or = to 2.5/40 mg Ezetimibe + Simvastatin 10/80 mg Simvastatin 80mg Discharge Plan Admission Admit Date/Time: 04/11/24 12:02 Primary Reason for Your Visit: Respiratory failure. Attending Provider: Lauri Spencer Primary Care Provider: Virginie Lockhart Consulting Providers: Daron Sarabia Discharge Orders/Prescriptions Prescriptions: New prednisone 10 mg tablet 10 mg PO DAILY Qty: 30 0RF Rx Instructions: 4 tabs daily for 3 days, then 3 tabs daily for 3 days, then 2 tabs daily for 3 days, then 1 tab daily for 3 days Continued ascorbate calcium (vitamin C) 500 mg tablet 500 mg PO DAILY nitroglycerin 0.4 mg tablet, sublingual 0.4 mg SL PRN PRN (Reason: Angina) Qty: 25 3RF ferrous sulfate [Feosol] 325 mg (65 mg iron) tablet 325 mg PO BID pirfenidone 267 mg tablet 801 mg PO TID Patient Comments: WEEK: QTY: PLEASE SEE ATTACHED INSTRUCTIONS hydralazine 100 mg tablet 100 mg PO TID Qty: 270 3RF Rx Instructions: Hold for SBP less than 130 mmHg Men's 50 Plus Multivitamin 400-20-370 mcg tablet 1 tab PO QDAY aspirin 81 MG tablet,chewable 81 mg PO QHS sodium bicarbonate 650 mg tablet 1,300 mg PO TID SPS (with sorbitol) 15-20 gram/60 mL suspension 60 ml PO DAILY Patient Comments: [NO ORIGINAL SIG] ezetimibe 10 mg tablet 10 mg PO QHS Qty: 90 3RF carvedilol 3.125 mg tablet 3.125 mg PO BID Qty: 60 11RF sertraline 50 mg tablet 50 mg PO DAILY Qty: 90 1RF atorvastatin 80 mg tablet 80 mg PO QHS Qty: 90 3RF doxazosin 8 mg tablet 8 mg PO QHS Qty: 90 3RF amlodipine 10 mg tablet 10 mg PO DAILY Qty: 90 0RF isosorbide mononitrate 120 mg tablet extended release 24 hr 120 mg PO QAM Qty: 90 3RF Referrals / Follow Up: Virginie Lockhart MD [Primary Care Provider] - Within 2 Weeks Disposition Disposition (needs filled in before D/C Order can be placed): Home, Self Care Charges/Coding Visit Charges Inpatient E&M: 10050 Disch Hosp >30min
--- NOTE | 2024-04-14 16:22 | CASEMGMT ---
Patient has order for discharge. Patient maintaining on home oxygen. RN CM in to discuss needs at discharge. Patient and deny needs or help at discharge. Patient to follow-up with pulmonary rehab. Patient and had no further questions or concerns
== END 2024-04-14 17:03 | disposition home or self-care (01) | DRG 291 ==
LOC: ED 12:07 → PCU 15:07
PROVIDERS: Admitting Provider Hospitalist; Emergency Provider Emergency Medicine; PCP Internal Medicine
DX: I13.0 Hypertensive heart and chronic kidney disease with heart failure and stage 1 through stage 4 chronic kidney disease, or unspecified chronic kidney disease (principal); J96.21 Acute and chronic respiratory failure with hypoxia; I50.31 Acute diastolic (congestive) heart failure; I24.89 Other forms of acute ischemic heart disease; E87.22 Chronic metabolic acidosis; N18.4 Chronic kidney disease, stage 4 (severe); J90 Pleural effusion, not elsewhere classified; D63.1 Anemia in chronic kidney disease; Z66 Do not resuscitate; I27.20 Pulmonary hypertension, unspecified; F32.A Depression, unspecified; J84.10 Pulmonary fibrosis, unspecified; E78.5 Hyperlipidemia, unspecified; E87.5 Hyperkalemia; I25.10 Atherosclerotic heart disease of native coronary artery without angina pectoris; F41.1 Generalized anxiety disorder; Z87.891 Personal history of nicotine dependence; Z79.82 Long term (current) use of aspirin; Z99.81 Dependence on supplemental oxygen; Z95.1 Presence of aortocoronary bypass graft; Z86.73 Personal history of transient ischemic attack (TIA), and cerebral infarction without residual deficits; Z79.899 Other long term (current) drug therapy; Z79.02 Long term (current) use of antithrombotics/antiplatelets; Z98.62 Peripheral vascular angioplasty status; Z96.659 Presence of unspecified artificial knee joint; Z11.52 Encounter for screening for COVID-19
CPT/HCPCS: 36415; 71046; 80048; 82962; 83880; 84145; 84484; 85025; 85027; 87631; 87633; 93005; 94640; 94668; 97161; 97165; 99252; 99285; A4216; G0463; J1940

== ENCOUNTER 2024-04-26 15:53 | Inpatient (IN) | payer MEDICARE, OTHER, SELFPAY ==
[2024-04-16 11:06] VITALS: BMI 23.4
[2024-04-26] VITALS (18 sets, daily range): BP systolic 114–175; BP diastolic 40–84; PULSE 63–95; RESP 12–30; TEMP 36.4–36.8; O2SAT 65–100; BMI 23.0; BMI 21.9
--- NOTE | 2024-04-26 16:15 | EKG12_ITS ---
Test Reason : SOB Blood Pressure : */* mmHG Vent. Rate : 79 BPM Atrial Rate : * BPM P-R Int : * ms QRS Dur : 106 ms QT Int : 424 ms P-R-T Axes : * 42 198 degrees QTcB Int : 486 ms Atrial fibrillation Left ventricular hypertrophy with repolarization abnormality ( Arnold product ) Prolonged QT Abnormal ECG Confirmed by Lazaro Garcia ([id number]), book or script editor CALLIE AGUILAR ([id number]) on 04/27/2024 10:31:29 AM Referred By: Confirmed By: Lazaro Garcia
--- NOTE | 2024-04-26 16:15 | CT_ITS ---
PROCEDURE: CTA chest with IV contrast REASON FOR EXAM: Hypoxia, hemoptysis TECHNIQUE: Multiple contiguous axial images through the chest were obtained after the administration of intravenous contrast. Two-dimensional and three-dimensional MIP coronal and sagittal reformatted images were reconstructed. Low-dose imaging technique was utilized. COMPARISON: 08/17/2022 FINDINGS: Moderate cardiomegaly. Heavy three-vessel coronary artery calcifications. Status post CABG. No significant pericardial effusion. Calcified nonaneurysmal thoracic aorta without gross dissection. Normal caliber pulmonary arteries without filling defects. No bulky adenopathy. Mild anasarca. No acute findings in the visualized upper abdomen. Central airways are patent. Mild/moderate bilateral pleural effusions, slightly greater on the right. Mild bibasilar atelectasis. No patchy infiltrates or pneumothorax. Mild scattered subpleural fibrotic changes. Borderline mild bronchiectasis. No dominant pulmonary mass. No acute osseous abnormality. Degenerative changes of the spine. CT/CTA Chest W/WO Contrast IMPRESSION: 1. Negative for pulmonary embolism. 2. Mild/moderate bilateral pleural effusions with adjacent basilar atelectasis. 3. Mild subpleural pulmonary fibrotic changes. Borderline bronchiectasis. 4. Moderate cardiomegaly and coronary artery disease. One or more dose reduction techniques were used (e.g., Automated exposure contr ol, adjustment of the mA and/or kV according to patient size, use of iterative reconstruction technique). Reading Location: [id number]
--- NOTE | 2024-04-26 16:15 | ED.VIS.DYS ---
HPI History of Present Illness Chief Complaint: Shortness of Breath [facility] Medical History History of pulmonary fibrosis History of chronic kidney disease History of atrial fibrillation Elevated troponin Hyperkalemia Weight loss, non-intentional Stage III chronic kidney disease BPH (benign prostatic hyperplasia) Insomnia Anemia GI bleed Anxiety Depression Kidney disease Former smoker On home oxygen therapy Atrial fibrillation Coronary artery disease Hypertension Respiratory failure with hypoxia CHF (congestive heart failure) Hypoxia Hemoptysis Hypoxia Interstitial lung disease Chronic cough Flu vaccine need Increased sputum production Generalized anxiety disorder Diarrhea Varicose veins of both lower extremities Arthritis Secondary pulmonary arterial hypertension FRANCISCO JAVIER (obstructive sleep apnea) Pleural effusion due to CHF (congestive heart failure) (08/27/19) Diverticulitis Hypoxia Elevated troponin (04/07/19) PND (post-nasal drip) Transient ischemic attack Anemia in chronic kidney disease (CKD) CVA (cerebral vascular accident) Stenosis of left subclavian artery Chronic kidney disease, stage 3 Renal artery stenosis Paroxysmal atrial flutter Bilateral carotid artery stenosis Peripheral vascular occlusive disease Atherosclerosis of coronary artery of [place] heart without angina pectoris Essential (primary) hypertension Hyperlipidemia Chronic diastolic (congestive) heart failure GERD (gastroesophageal reflux disease) Gout Arthritis Home Medications ?Medication ?Instructions ?Recorded ?Last Taken ?Type aspirin 81 mg chewable tablet 81 mg PO QHS Heart 08/03/19 04/10/24 History nitroglycerin 0.4 mg sublingual 0.4 mg sublingual PRN PRN Angina 08/14/22 Unknown Rx tablet #25 tabs ferrous sulfate 325 mg (65 mg 325 mg PO BID supplement 01/16/23 04/11/24 History iron) tablet (Feosol) ezetimibe 10 mg tablet 10 mg PO QHS cholesterol #90 tabs 09/02/23 04/10/24 Rx hydralazine 100 mg tablet 100 mg PO TID #270 tabs 09/25/23 04/11/24 Rx pirfenidone 267 mg tablet 801 mg PO TID 09/25/23 04/11/24 History carvedilol 3.125 mg tablet 3.125 mg PO BID blood pressure #60 10/17/23 04/11/24 Rx tabs sertraline 50 mg tablet 50 mg PO DAILY mental health #90 11/05/23 04/11/24 Rx tabs atorvastatin 80 mg tablet 80 mg PO QHS for cholesterol #90 12/23/23 04/10/24 Rx TABLETS doxazosin 8 mg tablet 8 mg PO QHS #90 tabs 12/25/23 04/10/24 Rx amlodipine 10 mg tablet 10 mg PO DAILY blood pressure #90 03/03/24 04/11/24 Rx tabs arztqegikccr-jta-geizf acid-vit 1 tab PO QDAY 03/23/24 04/11/24 History K-lycop 400 mcg-20 mcg-370 mcg tablet (Men's 50 Plus Multivitamin) isosorbide mononitrate 120 mg 120 mg PO QAM this is a dose 04/07/24 04/11/24 Rx tablet,extended release 24 hr increase #90 tabs sodium bicarbonate 650 mg tablet 1,300 mg PO TID kidneys 04/12/24 Unknown History bumetanide 1 mg tablet 1 mg PO BID 04/23/24 Unknown History Allergy/AdvReac Type Severity Reaction Status Date / Time No Known Allergies Allergy Verified 04/26/24 15:55 Family History Son CAD (coronary artery disease) Brother CAD (coronary artery disease) Diabetes Brother CAD (coronary artery disease) Diabetes Other Anemia Arthritis CVA (cerebral vascular accident) Hyperlipemia Hypertension Kidney disease Skin cancer Surgical History H/O basal cell carcinoma excision (09/2018) History of left common carotid artery stent placement (2003) History of stent insertion of renal artery (10/01/19) History of angioplasty of peripheral vessel History of left heart catheterization (08/13/12) H/O coronary artery bypass surgery (08/14/12) History of herniorrhaphy History of right-sided carotid endarterectomy (05/2016) H/O colonoscopy History of knee replacement Social History Smoking Status: Former smoker Tobacco: How many years used: 15 how long ago did patient quit smokin second hand exposure: No alcohol intake: current alcohol intake frequency: holidays/special occasions only substance use type: does not use caffeine: Yes EXAM Physical Exam Const Vital Signs: 04/26/24 15:55 04/26/24 16:05 04/26/24 16:11 Temperature 97.5 F L Temperature Source Oral Pulse Rate 80 Respiratory Rate 30 H 26 H Respiratory Effort Respiratory Pattern Blood Pressure 135/44 H Blood Pressure Mean 74 Pulse Ox 78 65 100 Oxygen Delivery Method Nasal Cannula Nasal Cannula Non-Rebreather Oxygen Flow Rate (L/min) 6 6 15 Fraction of Inspired Oxygen (FIO2) 04/26/24 16:12 04/26/24 16:23 04/26/24 16:24 Temperature Temperature Source Pulse Rate Respiratory Rate Respiratory Effort Short of Breath Labored Accessory Muscle Use Respiratory Pattern Tachypnea Blood Pressure Blood Pressure Mean Pulse Ox 97 Oxygen Delivery Method Bi-pap Bi-pap Oxygen Flow Rate (L/min) Fraction of Inspired Oxygen (FIO2) 40 40 04/26/24 16:30 04/26/24 17:08 Temperature Temperature Source Pulse Rate 83 Respiratory Rate 27 H Respiratory Effort Respiratory Pattern Tachypnea Blood Pressure Blood Pressure Mean Pulse Ox 96 97 Oxygen Delivery Method Non-Rebreather Oxygen Flow Rate (L/min) 15 Fraction of Inspired Oxygen (FIO2) 40 MDM MDM MDM Narrative Medical decision making narrative: HISTORY OF PRESENT ILLNESS: 78-year-old male history of pulmonary fibrosis, chronic hypoxemic respiratory failure, CHF, CAD status post CABG, hypertension, hyperlipidemia, CKD presents with acute onset of shortness of breath. 1 day of worsening shortness of breath and cough. There is no report of hemoptysis. There is report of slight leg swelling. Endorses nausea and vomiting. Denies chest pain or abdominal pain. Denies syncope. Denies unilateral leg swelling. Denies any other PE risk factors (the patient denies recent surgery in the last 4 weeks or immobilization in the last 3 days, denies previous diagnosis of DVT or PE, hemoptysis, unilateral leg swelling or malignancy with treatment the last 6 months or palliative. No estrogen use noted.) Per the patient's loved 1 patient was recently admitted for fluid on the lungs and received Lasix. REVIEW OF SYSTEMS: Pertinent positives: Shortness of breath, cough, hemoptysis Pertinent negatives: Chest pain PHYSICAL EXAM: Nursing triage notes reviewed, Vital signs reviewed Constitutional: please see mdm HENT: MMM Eyes: Pupils equal round and reactive to light, Extraocular muscles intact Neck: No stridor, no JVD, full neck ROM Lungs: Severe respiratory distress, increased work of breathing, conversational dyspnea, accessory muscle use, coarse crackles noted throughout. No full consolidation. No rales. Heart: Regular rate and rhythm, No murmurs, No rubs and No gallops, 2+ distal pulses (radial, femoral, posterior tibial) in all extremities Abdomen: Soft, there is no tenderness, rigidity, rebound or guarding, no obvious peritoneal signs, no palpable pulsatile abdominal masses, no auscultated abdominal bruit : No CVAT Extremities: No edema Neuro: Alert, oriented, moves all 4 extremities, sensation in all 4 extremities Skin: No rash or lesions noted MEDICAL DECISION MAKING: Chief Complaint: Shortness of breath External records reviewed: Reviewed recent hospitalization from 04/11/2024 until 04/14/2024 for acute on chronic respiratory failure, heart failure exacerbation, elevated troponin, CKD. Per this note the patient's CODE STATUS is DNR-CCA, DNI Factors affecting care: As per HPI Social determinants of health: none History obtained from others: Family Consults: Internal Medicine (Dr. Song), Cardiology (Dr. Villanueva) -discussed the patient's elevated troponin, EKG changes. He recommended no Funeral Pre Arrangement Specialist, no heparin. He thought this was demand ischemia. MDM Narrative: Patient was initially tachypneic with respirate of 30, hypoxic with initial pulse ox of 70% on 6 L by nasal cannula. He appeared in acute respiratory distress. Conversational dyspnea, accessory muscle use, belly breathing intercostal retractions. Lungs with coarse crackles. No obvious wheezing. No obvious lower extremity edema. No obvious stigmata of VTE on initial exam. IV O2 monitor was placed. Patient was initially stabilized with nonrebreather and switched promptly to BiPAP given increased work of breathing and hypoxia. I considered the following differential diagnosis: Pneumonia, COVID, flu, RSV, CHF, arrhythmia, anemia, ACS, CHF exacerbation, acute exacerbation of chronic hypoxemic respiratory failure I obtained a broad lab and imaging workup to further elucidate etiology of patient's complaints ALL IMAGES (IF OBTAINED) HAVE BEEN PERSONALLY REVIEWED AND INTERPRETED BY MYSELF. ABG without evidence of respiratory acidosis, CO2 within normal limits, no sign of metabolic acidosis either. EKG with normal sinus rhythm, normal axis, prolonged QT interval at 46, slight changes in ST segments in V2 and V3 with a baseline T wave inversions laterally. Initial troponin elevated consistent with myocardial ischemia is likely demand ischemia secondary to hypoxia, CKD and heart failure BNP elevated consistent with heart failure exacerbation CBC leukocytosis suggestive of systemic inflammation, mild anemia, no thrombocytopenia noted BMP without significant electrolyte abnormalities, there is CKD is slightly worse than prior CT of the chest shows cardiomegaly and pulmonary edema. No PE. No pneumonia. Patient was resting more comfortably on BiPAP. Given acute respiratory failure, hypoxia and signs of CHF to be admitted to the ICU. Discussed with hospitalist. The patient and/or family, caregivers express understanding. The patient and/or family, caregivers agrees with the plan. Shared decision making: I will have a discussion with the patient and or visitors regarding risk/benefits of further testing or admission. They will be made aware of of the risk/benefits inherent in this decision they will be given the opportunity to voice understanding. Total critical care time today provided was at least 60 minutes. This excludes separately billable procedures. Critical care time (if documented) is secondary to the patient having high probability of clinically significant/life threatening deterioration in the patient's condition which required my urgent intervention. Impression: 1. Acute respiratory failure 2. Acute on chronic CHF exacerbation 3. CKD 4. Anemia 5. Hypoxia 6. Elevated troponin Dispo: Admit to ICU This note was generated with [email or web address] dictation software. It may contain incorrect words, spelling, and punctuation that were not noted in review of the chart prior to signing. Lab Data Labs: Laboratory Results - last 24 hr 04/26/24 16:15 WBC 16.6 H RBC 3.03 L Hgb 9.6 L Hct 31.3 L MCV 103.3 H MCH 31.7 MCHC 30.7 L RDW Std Deviation 61.4 H RDW Coeff of Lisa 16.3 H Plt Count 206 MPV 10.7 Immature Gran % (Auto) 0.700 Neut % (Auto) 81.9 H Lymph % (Auto) 10.2 L [place] % (Auto) 4.8 Eos % (Auto) 2.2 Baso % (Auto) 0.2 Absolute Neuts (auto) 13.6 H Absolute Lymphs (auto) 1.69 Nucleated RBC % 0 Sodium 145 Potassium 5.0 Chloride 110 H Carbon Dioxide 25.0 Anion Gap 10 BUN 74 H Creatinine 2.70 H Estim Creat Clear Calc 21.81 Est GFR (MDRD) Af Amer 30 L Est GFR (MDRD) Non-Af 24 L BUN/Creatinine Ratio 27.4 H Glucose 268 H Calcium 8.6 Troponin I High Sens 344 H* B-Natriuretic Peptide 2775.8 H Discharge Plan Triage Chief Complaint: Shortness of Breath ED Provider: Raj Jackson Dx/Rx/DC Orders Prescriptions: No Action nitroglycerin 0.4 mg tablet, sublingual 0.4 mg SL PRN PRN (Reason: Angina) Qty: 25 3RF ferrous sulfate [Feosol] 325 mg (65 mg iron) tablet 325 mg PO BID pirfenidone 267 mg tablet 801 mg PO TID Patient Comments: WEEK: QTY: PLEASE SEE ATTACHED INSTRUCTIONS hydralazine 100 mg tablet 100 mg PO TID Qty: 270 3RF Rx Instructions: Hold for SBP less than 130 mmHg Men's 50 Plus Multivitamin 400-20-370 mcg tablet 1 tab PO QDAY bumetanide 1 mg tablet 1 mg PO BID aspirin 81 MG tablet,chewable 81 mg PO QHS sodium bicarbonate 650 mg tablet 1,300 mg PO TID ezetimibe 10 mg tablet 10 mg PO QHS Qty: 90 3RF carvedilol 3.125 mg tablet 3.125 mg PO BID Qty: 60 11RF sertraline 50 mg tablet 50 mg PO DAILY Qty: 90 1RF atorvastatin 80 mg tablet 80 mg PO QHS Qty: 90 3RF doxazosin 8 mg tablet 8 mg PO QHS Qty: 90 3RF amlodipine 10 mg tablet 10 mg PO DAILY Qty: 90 0RF isosorbide mononitrate 120 mg tablet extended release 24 hr 120 mg PO QAM Qty: 90 3RF Primary Care Provider: Virginie Lockhart Referrals: Virginie Lockhart MD [Primary Care Provider] - Print Language: Taiwanese
[2024-04-26] MEDS: Ondansetron 4 MG/2 ML Vial IV (16:27)
[2024-04-26 16:28] LABS: Absolute Lymphocyte Count 1.69 X10^3/uL (0.83-4.51); Absolute Neutrophil Count 13.6 X10^3/uL (2.0-7.7); Basophil# 0.03 X10^3/uL; Basophil% 0.2 % (0-1); Eosinophil# 0.37 X10^3/uL; Eosinophils% 2.2 % (0-5); Hematocrit 31.3 % (40-54); Hemoglobin 9.6 g/dL (13.0-16.5); Lymphocyte # 1.69 X10^3/ul (0.83-4.51); Lymphocyte % 10.2 % (19-41); Mean Corp Hgb Conc 30.7 g/dL (32-36); Mean Corpuscular Hgb 31.7 pg (27.0-32.0); Mean Corpuscular Volume 103.3 fL (80-94); Mean Platelet Vol. 10.7 fl (6.2-12.0); Monocyte# 0.79 X10^3/uL; Monocyte% 4.8 % (0-10); NRBC Flagged by Analyzer 0 % (0-5); Neutrophil # 13.62 X10^3/uL (2.7-7.7); Neutrophil % 81.9 % (47-70); Platelet Count 206 K/mm3 (150-450); RBC Distribution Width CV 16.3 % (11.6-14.6); RBC Distribution Width SD 61.4 fl (35.1-43.9); Red Blood Count 3.03 M/mm3 (4.6-6.2); White Blood Count 16.6 K/mm3 (4.4-11.0)
[2024-04-26 16:46] LABS: Anion Gap 10 (5-15); BUN 74 mg/dL (7-18); BUN/Creat Ratio 27.4 RATIO (10-20); Calcium,Total 8.6 mg/dL (8.5-10.1); Chloride 110 mmol/L (98-107); EST Glomerular Filtration Rate 24 mL/min (>60); Est Glom Filt Rate - Afr Amer 30 mL/min (>60); Estimated Creatinine Clearance 21.81 ml/min; Glucose 268 mg/dL (74-106); Sodium Level 145 mmol/L (136-145); Troponin-I HS 344 pg/mL (3.0-78.0)
[2024-04-26 16:54] LABS: BNP,B-Type NATRIURETIC PEPTIDE 2775.8 pg/mL (0-100)
[2024-04-26] MEDS: Furosemide 40 MG/4 ML Vial IV (17:56)
--- NOTE | 2024-04-26 18:30 | PCM.HP.STD ---
HPI - General General Date of Admission: 04/26/24 Date of Service: 04/26/24 Chief Complaint: SOB HPI Narrative EKTA CONWAY, is a 78-year-old male history of CHF, pulmonary fibrosis, A-fib, FRANCISCO JAVIER, CKD, coronary artery disease status post CABG, hypertension presented [facility] ED 04/26/2024 with 1 day of worsening cough and shortness of breath, additionally with some slight leg swelling, nausea, and vomiting. Patient was recently admitted from 04/11/2024 until 04/14/2024 for acute on chronic respiratory failure secondary to heart failure exacerbation. On arrival to the ED patient tachypneic with respiratory rate in the 30s and was hypoxic at 70% on 6 L of nasal cannula and was acutely in respiratory distress. Patient was initially stabilized on nonrebreather however was switched promptly to BiPAP given increased work of breathing and hypoxia. Patient initially afebrile in the ED with blood pressure 135/44 and heart rate of 80. White blood cell count 16.6 and hemoglobin 9.6. Troponin found to be 344 and BNP 2700 which was up from previous. Additionally patient's creatinine 2.70 up from 2.46 earlier in the month. CTA obtained in the ED which showed no pulmonary embolism but did show mild to moderate bilateral pleural effusions. Patient given IV Lasix and hospitalist contacted for admission for heart failure exacerbation. Patient evaluated with at bedside, patient been doing well since he was discharged 04/14 was seen in his primary care docs office 3 days ago, at the time he was doing so well that his bumetanide was decreased from twice daily to once daily however yesterday patient and his reincreased it as he began to get short of breath and today patient was so short of breath that he had to come to the hospital. Had an episode where he coughed up some phlegm that appeared to have some blood in it but has not had any green or productive sputum otherwise, denies chest pain, swelling in legs is better than it was. Patient with some nausea today but not having abdominal pain, intermittently gets diarrhea but this is chronic. Patient feeling little bit better in the ED but still significantly short of breath [facility] Medical History History of pulmonary fibrosis History of chronic kidney disease History of atrial fibrillation Elevated troponin Hyperkalemia Weight loss, non-intentional Stage III chronic kidney disease BPH (benign prostatic hyperplasia) Insomnia Anemia GI bleed Anxiety Depression Kidney disease Former smoker On home oxygen therapy Atrial fibrillation Coronary artery disease Hypertension Respiratory failure with hypoxia CHF (congestive heart failure) Hypoxia Hemoptysis Hypoxia Interstitial lung disease Chronic cough Flu vaccine need Increased sputum production Generalized anxiety disorder Diarrhea Varicose veins of both lower extremities Arthritis Secondary pulmonary arterial hypertension FRANCISCO JAVIER (obstructive sleep apnea) Pleural effusion due to CHF (congestive heart failure) (08/27/19) Diverticulitis Hypoxia Elevated troponin (04/07/19) PND (post-nasal drip) Transient ischemic attack Anemia in chronic kidney disease (CKD) CVA (cerebral vascular accident) Stenosis of left subclavian artery Chronic kidney disease, stage 3 Renal artery stenosis Paroxysmal atrial flutter Bilateral carotid artery stenosis Peripheral vascular occlusive disease Atherosclerosis of coronary artery of [place] heart without angina pectoris Essential (primary) hypertension Hyperlipidemia Chronic diastolic (congestive) heart failure GERD (gastroesophageal reflux disease) Gout Arthritis Home Medications ?Medication ?Instructions ?Recorded ?Last Taken ?Type aspirin 81 mg chewable tablet 81 mg PO QHS Heart 08/03/19 04/10/24 History nitroglycerin 0.4 mg sublingual 0.4 mg sublingual PRN PRN Angina 08/14/22 Unknown Rx tablet #25 tabs ferrous sulfate 325 mg (65 mg 325 mg PO BID supplement 01/16/23 04/11/24 History iron) tablet (Feosol) ezetimibe 10 mg tablet 10 mg PO QHS cholesterol #90 tabs 09/02/23 04/10/24 Rx hydralazine 100 mg tablet 100 mg PO TID #270 tabs 09/25/23 04/11/24 Rx pirfenidone 267 mg tablet 801 mg PO TID 09/25/23 04/11/24 History carvedilol 3.125 mg tablet 3.125 mg PO BID blood pressure #60 10/17/23 04/11/24 Rx tabs sertraline 50 mg tablet 50 mg PO DAILY mental health #90 11/05/23 04/11/24 Rx tabs atorvastatin 80 mg tablet 80 mg PO QHS for cholesterol #90 12/23/23 04/10/24 Rx TABLETS doxazosin 8 mg tablet 8 mg PO QHS #90 tabs 12/25/23 04/10/24 Rx amlodipine 10 mg tablet 10 mg PO DAILY blood pressure #90 03/03/24 04/11/24 Rx tabs lxshxtzfzecj-zpa-jelbl acid-vit 1 tab PO QDAY 03/23/24 04/11/24 History K-lycop 400 mcg-20 mcg-370 mcg tablet (Men's 50 Plus Multivitamin) isosorbide mononitrate 120 mg 120 mg PO QAM this is a dose 04/07/24 04/11/24 Rx tablet,extended release 24 hr increase #90 tabs sodium bicarbonate 650 mg tablet 1,300 mg PO TID kidneys 04/12/24 Unknown History bumetanide 1 mg tablet 1 mg PO BID 04/23/24 Unknown History Allergy/AdvReac Type Severity Reaction Status Date / Time No Known Allergies Allergy Verified 04/26/24 15:55 Family History Son CAD (coronary artery disease) Brother CAD (coronary artery disease) Diabetes Brother CAD (coronary artery disease) Diabetes Other Anemia Arthritis CVA (cerebral vascular accident) Hyperlipemia Hypertension Kidney disease Skin cancer Surgical History H/O basal cell carcinoma excision (09/2018) History of left common carotid artery stent placement (2003) History of stent insertion of renal artery (10/01/19) History of angioplasty of peripheral vessel History of left heart catheterization (08/13/12) H/O coronary artery bypass surgery (08/14/12) History of herniorrhaphy History of right-sided carotid endarterectomy (05/2016) H/O colonoscopy History of knee replacement Social History Smoking Status: Former smoker Tobacco: How many years used: 15 how long ago did patient quit smokin second hand exposure: No alcohol intake: current alcohol intake frequency: holidays/special occasions only substance use type: does not use caffeine: Yes ROS ROS Narrative General: Denies fever/chills HENT: Some chronic chronic nasal congestive symptoms EYES: Denies changes in vision Resp: Had 1 episode with some blood in sputum, increasing shortness of breath Cardiac: Denies chest pain GI: Denies abdominal pain, has been a little bit nauseous, does have some intermittent diarrhea which is not new : Denies changes in urination Extremity: Swelling is improved MSK: Generalized weakness Neuro: Denies any numbness/tingling Heme: Denies any bleeding or bruising Skin: Denies rashes Psychiatric: Patient very down about presents area Vital Signs Vital Signs Vital Signs: 04/26/24 15:55 04/26/24 16:05 04/26/24 16:11 Temperature 97.5 F L Temperature Source Oral Pulse Rate 80 Respiratory Rate 30 H 26 H Respiratory Effort Respiratory Pattern Blood Pressure 135/44 H Blood Pressure Mean 74 Pulse Ox 78 65 100 Oxygen Delivery Method Nasal Cannula Nasal Cannula Non-Rebreather Oxygen Flow Rate (L/min) 6 6 15 Fraction of Inspired Oxygen (FIO2) 04/26/24 16:12 04/26/24 16:23 04/26/24 16:24 Temperature Temperature Source Pulse Rate Respiratory Rate Respiratory Effort Short of Breath Labored Accessory Muscle Use Respiratory Pattern Tachypnea Blood Pressure Blood Pressure Mean Pulse Ox 97 Oxygen Delivery Method Bi-pap Bi-pap Oxygen Flow Rate (L/min) Fraction of Inspired Oxygen (FIO2) 40 40 04/26/24 16:30 04/26/24 17:08 04/26/24 17:19 Temperature Temperature Source Pulse Rate 83 82 Respiratory Rate 27 H 18 Respiratory Effort Respiratory Pattern Tachypnea Blood Pressure 155/58 H Blood Pressure Mean 90 Pulse Ox 96 97 100 Oxygen Delivery Method Non-Rebreather Bi-pap Oxygen Flow Rate (L/min) 15 Fraction of Inspired Oxygen (FIO2) 40 04/26/24 18:02 04/26/24 18:19 Temperature 97.8 F Temperature Source Pulse Rate 95 75 Respiratory Rate 22 H 24 H Respiratory Effort Respiratory Pattern Blood Pressure 149/84 H 175/48 H Blood Pressure Mean 105 90 Pulse Ox 97 100 Oxygen Delivery Method Nasal Cannula Oxygen Flow Rate (L/min) 6 Fraction of Inspired Oxygen (FIO2) Weight Weight: 68.9 kg Body Mass Index (BMI) 23.0 Physical Exam Narrative General: Alert, oriented, appears to feel unwell HEENT: Atraumatic, normocephalic Eyes: Anicteric, normal conjunctiva, extraocular movements grossly intact Neck: Supple Respiratory: Diminished bilaterally with significant increased work of breathing Cardiovascular: Low-grade sinus tachycardia GI: Soft, nontender, nondistended Extremities: No edema Musculoskeletal: Moving all extremities Neuro: No overt focal neurological deficits Skin: No rashes appreciated Psych: Cooperative Results Lab / Micro Data 04/26/24 16:15 04/26/24 16:15 Labs: Laboratory Results - last 24 hr 04/26/24 16:15: WBC 16.6 H, RBC 3.03 L, Hgb 9.6 L, Hct 31.3 L, MCV 103.3 H, MCH 31.7, MCHC 30.7 L, RDW Std Deviation 61.4 H, RDW Coeff of Lisa 16.3 H, Plt Count 206, MPV 10.7, Immature Gran % (Auto) 0.700, Neut % (Auto) 81.9 H, Lymph % (Auto) 10.2 L, [place] % (Auto) 4.8, Eos % (Auto) 2.2, Baso % (Auto) 0.2, Absolute Neuts (auto) 13.6 H, Absolute Lymphs (auto) 1.69, Nucleated RBC % 0, Sodium 145, Potassium 5.0, Chloride 110 H, Carbon Dioxide 25.0, Anion Gap 10, BUN 74 H, Creatinine 2.70 H, Estim Creat Clear Calc 21.81, Est GFR (MDRD) Af Amer 30 L, Est GFR (MDRD) Non-Af 24 L, BUN/Creatinine Ratio 27.4 H, Glucose 268 H, Calcium 8.6, Troponin I High Sens 344 H*, B-Natriuretic Peptide 2775.8 H Micro: Microbiology 04/26/24 16:45 Mucosa - Nose SARS-CoV-2, Influenza & RSV (PCR) - Final Imaging Radiology Impression Chest CTA 04/26/24 16:15 IMPRESSION: 1. Negative for pulmonary embolism. 2. Mild/moderate bilateral pleural effusions with adjacent basilar atelectasis. 3. Mild subpleural pulmonary fibrotic changes. Borderline bronchiectasis. 4. Moderate cardiomegaly and coronary artery disease. One or more dose reduction techniques were used (e.g., Automated exposure control, adjustment of the mA and/or kV according to patient size, use of iterative reconstruction technique). Reading Location: [facility] Assessment & Plan Assessment/Plan (1) Acute respiratory failure with hypoxia: PLAN: Plan # Hypoxia secondary to acute exacerbation of chronic heart failure with preserved ejection fraction -Admit to telemetry -BNP greater than 2700 -CTA with bilateral effusions -IV Lasix -Last echo 05/02/2022 with EF of 60% but moderate concentric left ventricular hypertrophy -Repeat echo ordered -Daily weights, I's and O's -Fluid restriction, heart healthy diet # Elevated troponin -Troponin 344 -No chest pain, suspect this secondary to hypoxia -No further acute workup at this time -EKG read out as A-fib however it appears to be more sinus arrhythmia with some artifact, rhythm strips also appear to be sinus, patient to be monitored on telemetry -If patient found to have A-fib can consider anticoagulation # CKD stage IV -Creatinine 2.70, slightly up from baseline which appears to be low to mid twos but does not meet criteria for BRAYDON -Could be component of cardiorenal given patient appears fluid overloaded -IV Lasix -Avoid nephrotoxic agents -Daily BMPs -Low threshold for nephrology involvement # Pulmonary fibrosis -Complicates #1 -Patient chronically on pirfenidone # History of coronary artery disease -Status post bypass in 2013 -Patient on beta-greg, ezetimibe, statin, aspirin # Chronic macrocytic anemia -Hemoglobin 9.6, appears to be at baseline #FRANCISCO JAVIER -Continue home NIPPV if applicable -Patient was using the ED but was switched to nonrebreather as he breathes through his mouth and therefore was not tolerating nasal cannula as he was desaturating when he was not actively thinking about breathing through his nose #Hypertension -Blood pressure 155/58 on admission, continue home antihypertensives #Depression/anxiety -Continue home medications #DVT ppx: hep subq Emilee Song MD Charges/Coding Visit Charges Inpatient E&M: 49243 Init Hosp L2
--- NOTE | 2024-04-26 18:45 | CM.ED ---
Social Work Date of referral: 04/26/24 Reason for referral: Support Referred by: Social Work Identification antisqueak worker attempted to provide support however, patient was receiving breathing treatment and patient's was tearful at bedside and expressed a preference for support and follow up to be done on a different date. No known needs at this time. Ansley Evans, AUTOMOTIVE GENERAL MANAGER, ONCOLOGY REP SPECIALIST
[2024-04-26 18:51] LABS: Troponin-I HS 359 pg/mL (3.0-78.0)
--- NOTE | 2024-04-26 19:03 | ECHOD_ITS ---
Reason For Study Reason For Study: CHF Procedure This was a 2D Doppler, Color Flow transthoracic echocardiogram. Exam performed portable in ICU/CCU. Left Ventricle Normal LV size. Concentric left ventricular hypertrophy. The estimated ejection fraction is 50-55 %. Unable to assess diastolic dysfunction. No regional wall motion abnormalities noted. Right Ventricle Normal RV size. Normal systolic function. Atria The left atrium is mildly enlarged. Normal right atrium. No doppler evidence for ASD. Mitral Valve There is moderate mitral annular calcification. There is no mitral valve stenosis. Mild (1+) mitral valve insufficiency. Tricuspid Valve There is no tricuspid stenosis. Trivial tricuspid valve insufficiency. Pulmonary artery systolic pressure is 50 mmHg. Aortic Valve Aortic sclerosis, no stenosis. There is no aortic stenosis. Trivial aortic valve insufficiency. Pulmonic Valve There is no pulmonic valvular stenosis. Trivial pulmonic valve insufficiency. Great Vessels Normal sized aortic root. Pericardium/Pleural No pericardial effusion. MMode/2D Measurements & Calculations LVIDd: 5.3 cm IVSd: 1.3 cm LVOT diam: 2.0 cm LVIDs: 4.0 cm LVPWd: 1.6 cm LVOT area: 3.3 cm2 RVDd: 4.0 cm FS: 24.6 % Ao root diam: 3.3 cm LAV(MOD-bp): 93.0 ml LVAd ap4: 42.9 cm2 LAV(MOD-bp) Indexed: 51.8 ml/m2 LVLd ap4: 9.8 cm LAV(MOD-sp2): 88.4 ml EDV(MOD-sp4): 156.9 ml LAV(MOD-sp4): 90.8 ml EDV(sp4-el): 158.4 ml LVAs ap4: 30.0 cm2 LVLs ap4: 8.5 cm ESV(MOD-sp4): 91.0 ml ESV(sp4-el): 89.5 ml EF(MOD-sp4): 42.0 % EF(sp4-el): 43.5 % SV(MOD-sp4): 66.0 ml SV(sp4-el): 68.8 ml LA A4 area: 26.9 cm2 SI(MOD-sp4): 36.8 ml/m2 LA dimension(2D): 5.2 cm RA A4 area: 20.3 cm2 TAPSE: 1.6 cm Time Measurements MV dec time: 0.20 sec Doppler Measurements & Calculations MV E max fei: 119.0 cm/sec Lat Peak E' Fei: 5.6 cm/sec Med Peak E' Fei: 4.9 cm/sec MV A max fei: 79.8 cm/sec E/E' lat: 21.3 E/E' med: 24.4 MV E/A: 1.5 Ao V2 max: 204.3 cm/sec AI max fei: 388.2 cm/sec LV V1 max: 106.3 cm/sec Ao max P.7 mmHg AI max P.4 mmHg LV V1 max P.5 mmHg Ao V2 mean: 139.7 cm/sec LV V1 mean P.0 mmHg Ao mean P.8 mmHg AI dec slope: 401.9 cm/sec2 LV V1 mean: 64.2 cm/sec Ao V2 VTI: 43.7 cm AI P1/2t: 283.0 msec LV V1 VTI: 24.6 cm AV (velocity ratio): 0.56 JULISA(I,D): 1.8 cm2 JULISA(V,D): 1.7 cm2 SV(LVOT): 80.4 ml PA V2 max: 111.2 cm/sec TR max fei: 325.4 cm/sec TR max P.3 mmHg ECHO/Echo Complete Interpretation Summary The estimated ejection fraction is 50-55 %. The left atrium is mildly enlarged. Mild (1+) mitral valve insufficiency. Trivial aortic valve insufficiency. Ordering Physician: Emilee Song Referring Physician: FRANKY PETERSEN Performed By: Laverne Hayden RDCS
[2024-04-26] MEDS: Aspirin 81 MG TAB.CHEW PO (20:50)
[2024-04-26] MEDS: Atorvastatin Calcium 80 MG Tablet PO (20:51)
[2024-04-26] MEDS: Doxazosin 4 MG Tablet 8 MG PO (20:51)
[2024-04-26] MEDS: Ezetimibe 10 MG Tablet PO (20:51)
[2024-04-26] MEDS: hydrALAZINE 50 MG Tablet 100 MG PO (20:51)
[2024-04-26] MEDS: Heparin Injection (Vial) 5,000 UNIT/ML VIAL 5000 UNIT SC (20:52)
[2024-04-26] MEDS: Sodium Bicarbonate 650 MG Tablet 1300 MG PO (20:52)
[2024-04-27] VITALS (32 sets, daily range): BP systolic 121–158; BP diastolic 42–101; PULSE 57–94; RESP 12–24; TEMP 36.8–37.3; O2SAT 90–98; BMI 22.4
[2024-04-27] MEDS: hydrALAZINE 50 MG Tablet 100 MG PO ×3 (05:46→20:18)
[2024-04-27] MEDS: Heparin Injection (Vial) 5,000 UNIT/ML VIAL 5000 UNIT SC ×3 (05:46→20:20)
[2024-04-27] MEDS: Sodium Bicarbonate 650 MG Tablet 1300 MG PO ×3 (05:47→20:18)
--- NOTE | 2024-04-27 05:55 | EKG12_ITS ---
Test Reason : AM EKG Blood Pressure : */* mmHG Vent. Rate : 79 BPM Atrial Rate : 79 BPM P-R Int : 190 ms QRS Dur : 102 ms QT Int : 426 ms P-R-T Axes : * 55 213 degrees QTcB Int : 488 ms Normal sinus rhythm Moderate voltage criteria for LVH, may be normal variant ( Sokolow-Connolly , [place]lin product ) CAN NOT RULE OUT SEPTAL INFARCT, AGE UNDETERMINED ST ABNORMALITY, POSSIBLE INFERIOR SUBENDOCARDIAL ISCHEMIA Abnormal ECG When compared with ECG of 26-Apr-2024 16:49, MANUAL COMPARISON REQUIRED DATA IS UNCONFIRMED Confirmed by Lazaro Garcia ([id number]), visual effects editor CALLIE AGUILAR ([id number]) on 04/27/2024 10:42:29 AM Referred By: JANKI Confirmed By: Lazaro Garcia
[2024-04-27 06:17] LABS: Absolute Lymphocyte Count 1.48 X10^3/uL (0.83-4.51); Absolute Neutrophil Count 9.1 X10^3/uL (2.0-7.7); Basophil# 0.03 X10^3/uL; Basophil% 0.3 % (0-1); Eosinophil# 0.35 X10^3/uL; Hematocrit 29.6 % (40-54); Hemoglobin 9.1 g/dL (13.0-16.5); Lymphocyte # 1.48 X10^3/ul (0.83-4.51); Lymphocyte % 12.7 % (19-41); Mean Corp Hgb Conc 30.7 g/dL (32-36); Mean Corpuscular Volume 104.2 fL (80-94); Mean Platelet Vol. 10.9 fl (6.2-12.0); Monocyte# 0.66 X10^3/uL; Monocyte% 5.6 % (0-10); NRBC Flagged by Analyzer 0 % (0-5); Neutrophil # 9.12 X10^3/uL (2.7-7.7); Platelet Count 176 K/mm3 (150-450); RBC Distribution Width CV 16.5 % (11.6-14.6); RBC Distribution Width SD 63.2 fl (35.1-43.9); Red Blood Count 2.84 M/mm3 (4.6-6.2); White Blood Count 11.7 K/mm3 (4.4-11.0)
[2024-04-27 06:56] LABS: Anion Gap 5 (5-15); BUN 69 mg/dL (7-18); BUN/Creat Ratio 28.2 RATIO (10-20); Calcium,Total 8.2 mg/dL (8.5-10.1); Chloride 110 mmol/L (98-107); Creatinine, Serum 2.45 mg/dL (0.70-1.30); EST Glomerular Filtration Rate 27 mL/min (>60); Est Glom Filt Rate - Afr Amer 33 mL/min (>60); Estimated Creatinine Clearance 23.44 ml/min; Glucose 93 mg/dL (74-106); Potassium 5.1 mmol/L (3.5-5.1); Sodium Level 144 mmol/L (136-145); Troponin-I HS 949 pg/mL (3.0-78.0)
[2024-04-27 07:24] LABS: Allen Test Positive; Base Excess 1 mmol/L (-2 to +2); Bicarbonate 25.4 mmol/L (22-26); Blood Gas Specimen Type ART; Mode Not entered; O2 Delivery Device BiPAP; PEEP 6; PO2 66 mmHG (75-100); RR 12; SITE R Radial; SO2 93 % (95-99); Total Carbon Dioxide 27 mmol/L; pCO2 40.7 mmHg (35-45)
--- NOTE | 2024-04-27 07:58 | PCM.PN.HOSP ---
Reason for Visit Reason for Visit: Diagnoses Acute respiratory failure with hypoxia (04/26/24) Subjective Subjective Patient sitting up in chair at bedside with Airvo, patient doing much better, still short of breath but significantly improved Objective Data Objective Data Vital Signs: Vital Signs Temp Pulse Resp BP Pulse Ox O2 Del Method O2 Flow Rate 98.3 F 85 20 H 158/45 H 94 Airvo 60 04/27/24 05:00 04/27/24 07:00 04/27/24 06:00 04/27/24 06:00 04/27/24 06:00 04/27/24 07:44 04/27/24 07:44 FiO2 50 04/27/24 07:44 Oxygen Flow Rate (L/min) 60 Oxygen Delivery Method Airvo Weight: 66.7 kg Body Mass Index (BMI) 22.4 Intake & Output: Intake and Output for Last 24 Hours 04/25/24 04/26/24 04/27/24 23:59 23:59 23:59 Intake Total 240 / 240 Output Total 225 / 325 500 / 500 Balance -225 / -205 -260 / -260 Lab / Micro Data 04/27/24 05:55 04/27/24 05:55 Labs: Laboratory Results - last 24 hr 04/26/24 16:15: WBC 16.6 H, RBC 3.03 L, Hgb 9.6 L, Hct 31.3 L, MCV 103.3 H, MCH 31.7, MCHC 30.7 L, RDW Std Deviation 61.4 H, RDW Coeff of Lisa 16.3 H, Plt Count 206, MPV 10.7, Immature Gran % (Auto) 0.700, Neut % (Auto) 81.9 H, Lymph % (Auto) 10.2 L, [place] % (Auto) 4.8, Eos % (Auto) 2.2, Baso % (Auto) 0.2, Absolute Neuts (auto) 13.6 H, Absolute Lymphs (auto) 1.69, Nucleated RBC % 0, Sodium 145, Potassium 5.0, Chloride 110 H, Carbon Dioxide 25.0, Anion Gap 10, BUN 74 H, Creatinine 2.70 H, Estim Creat Clear Calc 21.81, Est GFR (MDRD) Af Amer 30 L, Est GFR (MDRD) Non-Af 24 L, BUN/Creatinine Ratio 27.4 H, Glucose 268 H, Calcium 8.6, Troponin I High Sens 344 H*, B-Natriuretic Peptide 2775.8 H 04/26/24 17:58: Troponin I High Sens 359 H* 04/27/24 05:55: WBC 11.7 H, RBC 2.84 L, Hgb 9.1 L, Hct 29.6 L, MCV 104.2 H, MCH 32.0, MCHC 30.7 L, RDW Std Deviation 63.2 H, RDW Coeff of Lisa 16.5 H, Plt Count 176, MPV 10.9, Immature Gran % (Auto) 0.400, Neut % (Auto) 78.0 H, Lymph % (Auto) 12.7 L, [place] % (Auto) 5.6, Eos % (Auto) 3.0, Baso % (Auto) 0.3, Absolute Neuts (auto) 9.1 H, Absolute Lymphs (auto) 1.48, Nucleated RBC % 0, Sodium 144, Potassium 5.1, Chloride 110 H, Carbon Dioxide 29.0, Anion Gap 5, BUN 69 H, Creatinine 2.45 H, Estim Creat Clear Calc 23.44, Est GFR (MDRD) Af Amer 33 L, Est GFR (MDRD) Non-Af 27 L, BUN/Creatinine Ratio 28.2 H, Glucose 93, Calcium 8.2 L, Troponin I High Sens 949 H* Micro: Microbiology 04/26/24 16:45 Mucosa - Nose SARS-CoV-2, Influenza & RSV (PCR) - Final ABG Data ABG results: ABG 04/26/24 16:29 Specimen Type ART Sample Site R Radial pH 7.40 Bicarbonate Actual 25.4 Total CO2 27 Base Excess 1 O2 Saturation 93 L O2 % 40.0 ABG pCO2 40.7 ABG pO2 66 L Jamel Test Positive Respiration Rate 12 O2 Delivery Device BiPAP Vent Mode Not entered POC PEEP 6 Radiography Diagnostic Testing: Radiology Impression Chest CTA 04/26/24 16:15 IMPRESSION: 1. Negative for pulmonary embolism. 2. Mild/moderate bilateral pleural effusions with adjacent basilar atelectasis. 3. Mild subpleural pulmonary fibrotic changes. Borderline bronchiectasis. 4. Moderate cardiomegaly and coronary artery disease. One or more dose reduction techniques were used (e.g., Automated exposure control, adjustment of the mA and/or kV according to patient size, use of iterative reconstruction technique). [facility] Physical Exam Narrative General: Alert, oriented, no apparent distress HEENT: Atraumatic, normocephalic Eyes: Anicteric, normal conjunctiva, extraocular movements grossly intact Neck: Supple Respiratory: Crackles at the bases, increased respiratory effort but improved from yesterday Cardiovascular: Regular rate GI: Soft, nontender, nondistended Extremities: No sig pitting edema Musculoskeletal: Moving all extremities Neuro: No overt focal neurological deficits Skin: No rashes appreciated Psych: Cooperative Assessment & Plan Assessment/Plan (1) Acute respiratory failure with hypoxia: PLAN: Plan # Hypoxia secondary to acute exacerbation of chronic heart failure with preserved ejection fraction -Admit to telemetry -BNP greater than 2700 -CTA with bilateral effusions -IV Lasix -Last echo 05/02/2022 with EF of 60% but moderate concentric left ventricular hypertrophy -Repeat echo ordered -Daily weights, I's and O's -Fluid restriction, heart healthy diet -04/27: Patient on IV Lasix twice daily, presently on Airvo, continue supportive care, given patient still in the ICU with respiratory failure, pulm did evaluate and recommended cardiology consult, cardiology evaluated and agrees with diuresis and he will be monitored. Echo with EF of 50 to 55% and left ventricular hypertrophy # Elevated troponin -Troponin 344 -No chest pain, suspect this secondary to hypoxia -No further acute workup at this time -EKG read out as A-fib however it appears to be more sinus arrhythmia with some artifact, rhythm strips also appear to be sinus, patient to be monitored on telemetry -If patient found to have A-fib can consider anticoagulation -04/27: Troponin trended up to 949 but patient has not had any chest pain, troponin subsequently trended down, no wall motion abnormalities noted # CKD stage IV -Creatinine 2.70, slightly up from baseline which appears to be low to mid twos but does not meet criteria for BRAYDON -Could be component of cardiorenal given patient appears fluid overloaded -IV Lasix -Avoid nephrotoxic agents -Daily BMPs -Low threshold for nephrology involvement -04/27: Creatinine down to 2.45 with Lasix, suspect increased was in part cardiorenal, baseline, continuing diuresis this patient is continued to be in respiratory failure. Again low threshold for nephrology consult # Pulmonary fibrosis -Complicates #1 -Patient chronically on pirfenidone -04/27: to bring in pirfenidone this a.m. # History of coronary artery disease -Status post bypass in 2012 -Patient on beta-greg, ezetimibe, statin, aspirin -04/27: Continue home meds, no wall motion abnormalities # Chronic macrocytic anemia -Hemoglobin 9.6, appears to be at baseline -04/27: Hemoglobin 9.1, no signs or symptoms of bleeding, currently stable #FRANCISCO JAVIER -Continue home NIPPV if applicable -Patient was using the ED but was switched to nonrebreather as he breathes through his mouth and therefore was not tolerating nasal cannula as he was desaturating when he was not actively thinking about breathing through his nose -04/27: Patient presently on Airvo #Hypertension -Blood pressure 155/58 on admission, continue home antihypertensives -04/27: BP same 120/64, continue home medication at this time Chronic medical problems: #Depression/anxiety -Continue home medications #DVT ppx: hep subq Emilee Song MD Charges/Coding Visit Charges Inpatient E&M: 98593 Subs Hosp L2
[2024-04-27] MEDS: Carvedilol 3.125 MG TABLET PO ×2 (08:54→16:39)
[2024-04-27] MEDS: amLODIPine 10 MG Tablet PO (09:37)
[2024-04-27] MEDS: Sertraline 50 MG Tablet PO (09:37)
[2024-04-27] MEDS: Furosemide 40 MG/4 ML Vial IV ×2 (09:38→17:34)
[2024-04-27] MEDS: 0.9% Saline Lock 10 ML Syringe IV ×3 (09:39→17:34)
--- NOTE | 2024-04-27 10:00 | CASEMGMT ---
JEROD HART chart review: Patient was admitted 04/11/24 - 04/14/24 for acute on chronic respiratory failure. Pt discharged home with family support. Provider ordered Prednisone at D/C. Pt was instructed to follow up with pulmonary rehab. Pt returned to [facility] ED 04/26/2024 with 1 day of worsening cough and shortness of breath, additionally with some slight leg swelling, nausea, and vomiting. JEROD HART discussed needs at DC and readmission. Pt states he picked up medication and has been taking all meds as prescribed. Pt was to start with Pulmonary Rehab today, 04/27/24. Pt denies needs at D/C. Pt gets O2 through JEROD ESTRD[facility] CM to follow for any changes in O2. Pt denies any additional questions or concerns at this time.
[2024-04-27] MEDS: FLU VACCINE **HIGH DOSE** TV 24-25 180 MCG/0.5 ML SYRINGE IM (10:01)
[2024-04-27 10:33] LABS: Troponin-I HS 680 pg/mL (3.0-78.0)
--- NOTE | 2024-04-27 10:55 | EX.PCM.CONCC ---
Assessment & Plan Assessment/Plan (1) Acute respiratory failure with hypoxia: PLAN: Plan RECOMMENDATIONS: 1. Continue to wean FiO2 to maintain oxygen saturations at or above 90%. 2. Ongoing diuresis as tolerated by hemodynamics and renal function. 3. Given that the patient's primary issue is related to heart failure, recommend consultation to cardiology. 4. Encourage incentive spirometer use and mobilize patient as tolerated. IMPRESSIONS: 1. Respiratory failure with hypoxemia Appears secondary to exacerbation of underlying artery with preserved ejection fraction in a patient with known coronary artery disease status post CABG and valvular heart disease. The patient does have an elevated BNP and troponin. Repeat echocardiogram is pending. Recommend weaning FiO2 to maintain oxygen saturations at or above 90%. Continue ongoing diuresis as tolerated by hemodynamics and renal function. Given that the patient's primary issue is cardiac in nature, recommend consultation to cardiology. In addition to the aforementioned, the patient reported that he is followed by an outside director manufacturing engineering in [place], for reasons that are not entirely clear, as the patient is a relatively poor historian. Despite this, I do suspect that he likely has an underlying component of idiopathic pulmonary fibrosis, based on the fact that he is on pirfenidone on an outpatient basis. Will attempt to obtain outside pulmonary records from [facility]. Thoracentesis can be considered if the patient does not improve clinically with diuresis. 2. History of chronic kidney disease/coronary artery disease/anemia/obstructive sleep apnea/hypertension/depression Complicates care, management, recovery and prognosis. Continue home medications as indicated. This note was generated with [employer] dictation software. It may contain incorrect words, spelling, and punctuation that were not noted in checking the note before signing. HPI Consult Data Date of Consult: 04/27/24 HPI Narrative Reason for Consultation: Respiratory failure with hypoxemia HPI Narrative: The patient is a 78-year-old male, with a history as outlined below, who presented to the emergency department on April 26 with shortness of breath. The patient is currently followed in the cardiology clinic due to a history of coronary artery disease status post CABG, bilateral carotid artery stenosis, and peripheral vascular disease. The patient was just admitted to the hospital April 11 with acute on chronic hypoxemic respiratory failure related to congestive heart failure and pulmonary fibrosis. At the time of his discharge, the patient required 6 L/min of supplemental oxygen. The patient reported to me that he was supposed to be seen today in the cardiology clinic. He is followed on an outpatient basis by a director manufacturing engineering in [place] for what I suspect is IPF. However, the patient is not able to confirm why he is followed by the aforementioned director manufacturing engineering. On presentation to the emergency department, the patient was documented to be afebrile hemodynamically stable. He was initially saturating 78% on 6 L/min via nasal cannula. Laboratory evaluation was notable for a white blood cell count of 16,000 with a hemoglobin of 9.6 g/dL and platelet count of 206,000. Chemistry profile was notable for a creatinine of 2.7 with a troponin of 344 and BNP of 2775. CTA chest ruled out pulmonary embolism. There was evidence of cardiomegaly along with moderate bilateral pleural effusions with associated atelectasis. Subpleural fibrotic changes were also noted. COVID, influenza and RSV PCR's were negative. The patient was placed on Lasix and admitted to the medical intensive care unit for further management. Echocardiogram is currently pending. [facility] Medical History History of pulmonary fibrosis History of chronic kidney disease History of atrial fibrillation Elevated troponin Hyperkalemia Weight loss, non-intentional Stage III chronic kidney disease BPH (benign prostatic hyperplasia) Insomnia Anemia GI bleed Anxiety Depression Kidney disease Former smoker On home oxygen therapy Atrial fibrillation Coronary artery disease Hypertension Respiratory failure with hypoxia CHF (congestive heart failure) Hypoxia Hemoptysis Hypoxia Interstitial lung disease Chronic cough Flu vaccine need Increased sputum production Generalized anxiety disorder Diarrhea Varicose veins of both lower extremities Arthritis Secondary pulmonary arterial hypertension FRANCISCO JAVIER (obstructive sleep apnea) Pleural effusion due to CHF (congestive heart failure) (08/27/19) Diverticulitis Hypoxia Elevated troponin (04/07/19) PND (post-nasal drip) Transient ischemic attack Anemia in chronic kidney disease (CKD) CVA (cerebral vascular accident) Stenosis of left subclavian artery Chronic kidney disease, stage 3 Renal artery stenosis Paroxysmal atrial flutter Bilateral carotid artery stenosis Peripheral vascular occlusive disease Atherosclerosis of coronary artery of [place] heart without angina pectoris Essential (primary) hypertension Hyperlipidemia Chronic diastolic (congestive) heart failure GERD (gastroesophageal reflux disease) Gout Arthritis Home Medications ?Medication ?Instructions ?Recorded ?Last Taken ?Type aspirin 81 mg chewable tablet 81 mg PO QHS Heart 08/03/19 04/25/24 History nitroglycerin 0.4 mg sublingual 0.4 mg sublingual PRN PRN Angina 08/14/22 Unknown Rx tablet #25 tabs ferrous sulfate 325 mg (65 mg 325 mg PO BID supplement 01/16/23 04/26/24 History iron) tablet (Feosol) ezetimibe 10 mg tablet 10 mg PO QHS cholesterol #90 tabs 09/02/23 04/25/24 Rx hydralazine 100 mg tablet 100 mg PO TID #270 tabs 09/25/23 04/26/24 Rx pirfenidone 267 mg tablet 801 mg PO TID Pulmonary fibrosis 09/25/23 04/26/24 History carvedilol 3.125 mg tablet 3.125 mg PO BID blood pressure #60 10/17/23 04/26/24 Rx tabs sertraline 50 mg tablet 50 mg PO DAILY mental health #90 11/05/23 04/26/24 Rx tabs atorvastatin 80 mg tablet 80 mg PO QHS for cholesterol #90 12/23/23 04/25/24 Rx TABLETS doxazosin 8 mg tablet 8 mg PO QHS #90 tabs 12/25/23 04/25/24 Rx amlodipine 10 mg tablet 10 mg PO DAILY blood pressure #90 03/03/24 04/26/24 Rx tabs djqszeqwxhpw-ybc-kzywu acid-vit 1 tab PO QDAY VITAMIN 03/23/24 04/26/24 History K-lycop 400 mcg-20 mcg-370 mcg tablet (Men's 50 Plus Multivitamin) isosorbide mononitrate 120 mg 120 mg PO QAM this is a dose 04/07/24 04/26/24 Rx tablet,extended release 24 hr increase #90 tabs sodium bicarbonate 650 mg tablet 1,300 mg PO TID kidneys 04/12/24 04/26/24 History bumetanide 1 mg tablet 1 mg PO BID CHF 04/23/24 04/26/24 History Allergy/AdvReac Type Severity Reaction Status Date / Time No Known Allergies Allergy Verified 04/26/24 15:55 Family History Son CAD (coronary artery disease) Brother CAD (coronary artery disease) Diabetes Brother CAD (coronary artery disease) Diabetes Other Anemia Arthritis CVA (cerebral vascular accident) Hyperlipemia Hypertension Kidney disease Skin cancer Surgical History H/O basal cell carcinoma excision (09/2018) History of left common carotid artery stent placement (2003) History of stent insertion of renal artery (10/01/19) History of angioplasty of peripheral vessel History of left heart catheterization (08/13/12) H/O coronary artery bypass surgery (08/14/12) History of herniorrhaphy History of right-sided carotid endarterectomy (05/2016) H/O colonoscopy History of knee replacement Social History Smoking Status: Former smoker Tobacco: How many years used: 15 how long ago did patient quit smokin second hand exposure: No alcohol intake: current alcohol intake frequency: holidays/special occasions only substance use type: does not use caffeine: Yes ROS ROS Narrative 10 systems were reviewed with pertinent positives as noted in the HPI above. Physical Exam Const alert, oriented x3 and no apparent distress Constitutional Narrative: Sitting in bedside recliner. General Appearance: cooperative HEENT normocephalic, head/scalp atraumatic and moist oral mucous membranes Eyes PERRL, EOMs intact bilaterally and conjunctivae normal Neck supple General: trachea midline Chest inspection of chest normal Resp normal respiratory effort Resp Narrative: Mild basilar rales Cardio regular rate and regular rhythm GI normal to inspection, nondistended, normoactive bowel sounds Extremity General Extremity: edema bilateral lower extremity; Negative for clubbing Skin no rashes or lesions noted Neuro CN's II-XII intact bilaterally, moves all extremities and no focal motor deficits Psych cooperative and affect normal Lab / Micro Data 04/27/24 05:55 04/27/24 05:55 Labs: Laboratory Results - last 24 hr 04/26/24 16:15: WBC 16.6 H, RBC 3.03 L, Hgb 9.6 L, Hct 31.3 L, MCV 103.3 H, MCH 31.7, MCHC 30.7 L, RDW Std Deviation 61.4 H, RDW Coeff of Lisa 16.3 H, Plt Count 206, MPV 10.7, Immature Gran % (Auto) 0.700, Neut % (Auto) 81.9 H, Lymph % (Auto) 10.2 L, [place] % (Auto) 4.8, Eos % (Auto) 2.2, Baso % (Auto) 0.2, Absolute Neuts (auto) 13.6 H, Absolute Lymphs (auto) 1.69, Nucleated RBC % 0, Sodium 145, Potassium 5.0, Chloride 110 H, Carbon Dioxide 25.0, Anion Gap 10, BUN 74 H, Creatinine 2.70 H, Estim Creat Clear Calc 21.81, Est GFR (MDRD) Af Amer 30 L, Est GFR (MDRD) Non-Af 24 L, BUN/Creatinine Ratio 27.4 H, Glucose 268 H, Calcium 8.6, Troponin I High Sens 344 H*, B-Natriuretic Peptide 2775.8 H 04/26/24 17:58: Troponin I High Sens 359 H* 04/27/24 05:55: WBC 11.7 H, RBC 2.84 L, Hgb 9.1 L, Hct 29.6 L, MCV 104.2 H, MCH 32.0, MCHC 30.7 L, RDW Std Deviation 63.2 H, RDW Coeff of Lisa 16.5 H, Plt Count 176, MPV 10.9, Immature Gran % (Auto) 0.400, Neut % (Auto) 78.0 H, Lymph % (Auto) 12.7 L, [place] % (Auto) 5.6, Eos % (Auto) 3.0, Baso % (Auto) 0.3, Absolute Neuts (auto) 9.1 H, Absolute Lymphs (auto) 1.48, Nucleated RBC % 0, Sodium 144, Potassium 5.1, Chloride 110 H, Carbon Dioxide 29.0, Anion Gap 5, BUN 69 H, Creatinine 2.45 H, Estim Creat Clear Calc 23.44, Est GFR (MDRD) Af Amer 33 L, Est GFR (MDRD) Non-Af 27 L, BUN/Creatinine Ratio 28.2 H, Glucose 93, Calcium 8.2 L, Troponin I High Sens 949 H* 04/27/24 10:00: Troponin I High Sens 680 H* Micro: Microbiology 04/26/24 16:45 Mucosa - Nose SARS-CoV-2, Influenza & RSV (PCR) - Final ABG Data ABG results: ABG 04/26/24 16:29 Specimen Type ART Sample Site R Radial pH 7.40 Bicarbonate Actual 25.4 Total CO2 27 Base Excess 1 O2 Saturation 93 L O2 % 40.0 ABG pCO2 40.7 ABG pO2 66 L Jamel Test Positive Respiration Rate 12 O2 Delivery Device BiPAP Vent Mode Not entered POC PEEP 6 Imaging Radiology Impression Chest CTA 04/26/24 16:15 IMPRESSION: 1. Negative for pulmonary embolism. 2. Mild/moderate bilateral pleural effusions with adjacent basilar atelectasis. 3. Mild subpleural pulmonary fibrotic changes. Borderline bronchiectasis. 4. Moderate cardiomegaly and coronary artery disease. One or more dose reduction techniques were used (e.g., Automated exposure control, adjustment of the mA and/or kV according to patient size, use of iterative reconstruction technique). Reading Location: [facility] Charges/Coding Visit Charges Inpatient E&M: 75743 Init Hosp L3
[2024-04-27] MEDS: Ferrous Sulfate 325 MG Tablet PO ×2 (12:18→16:39)
[2024-04-27] MEDS: PIRFENIDONE 801 MG PO ×2 (12:22→16:39)
--- NOTE | 2024-04-27 12:34 | PCM.CONS.C ---
Assessment & Plan Assessment/Plan (1) Acute respiratory failure with hypoxia: PLAN: Patient presented with profound hypoxia and was placed on BiPAP with improvement in the respiratory status. He is now on Airvo and has been diuresed. The patient carries a history of pulmonary fibrosis with pulmonary artery hypertension but noninvasive measurement. He is due to have a right heart cath done tomorrow at the [facility] as part of his workup. At this point time the patient appears to be improving this is a similar presentation to earlier this month. Will continue with aggressive diuresis and monitoring and management of what appears to be short burst of an atrial tachyarrhythmia. Will switch the patient's amlodipine to diltiazem to see if that will better control the atrial tachyarrhythmia and continue blood pressure control. Will need to monitor him closely as he has a history of bradycardia. (2) Atherosclerosis of coronary artery of [place] heart without angina pectoris: QUALIFIERS: Coronary Disease-Associated Artery/Lesion type: [place] artery Qualified Code(s): I25.10 - Atherosclerotic heart disease of [place] coronary artery without angina pectoris PLAN: Patient carries a history of known coronary disease status post bypass graft surgery as noted below. He denies any anginal symptoms his enzymes were minimally elevated probably related to demand ischemia given his profound hypoxia and known atherosclerotic disease. (3) H/O coronary artery bypass surgery: PLAN: Remote bypass graft surgery with a sequential BALES graft to the LAD diagonal and vein graft to the OM branch of the circumflex and a vein graft to the PDA of the right. (4) Chronic diastolic (congestive) heart failure: PLAN: Patient was admitted early April with a similar presentation. Long-term management is going to be complicated given his combination of pulmonary renal and cardiac issues. (5) Paroxysmal atrial flutter: PLAN: Patient appears to be having some type of atrial tachyarrhythmia it does not appear to be flutter but it could be short burst of atrial fibs. Currently he is not anticoagulated due to a history of anemia and GI bleeds. He is on aspirin. The patient's [id number] score is at least 4. (6) Essential (primary) hypertension: PLAN: Patient's blood pressures been adequate controlled in the hospital on his current medical therapy we are making the change to see if we can better control the SVT/atrial tachyarrhythmia. PLAN: Plan 1. Will continue with diuresis and monitoring his renal function closely as he did receive exposure to contrast yesterday. 2. Will change amlodipine to diltiazem CD2 140 mg starting at 6 PM tonight. 3. Will monitor his heart rate and hold the medication this heart rate is less than 55. It has run in the 50-60 bpm range in his home environment. 4. Continue his Coreg at low-dose 3.125 mg twice daily. 5. Follow-up with echocardiogram to reevaluate any structural changes. Echo was done earlier today. 6. Patient was encouraged to continue to follow-up with his pulmonary physicians at the [facility]. HPI Consult Data Date of Consult: 04/27/24 HPI Narrative Reason for Consultation: Heart failure preserved ejection fraction decompensated hypoxia. HPI Narrative: EKTA CONWAY, is a 78 M who presents with a history of heart failure preserved ejection fraction. He also carries a history of pulmonary fibrosis. He was recently hospitalized they were through April 14 with congestive heart failure. He was diuresed and placed on Bumex 1 mg twice daily. He did very well in his home environment when his edema was resolved it was decided with his drafter marine to decrease the Bumex back to 1 a day. After a few days the patient noticed that he was getting short of breath and his Bumex was increased to twice daily dosing regiment. However his shortness of breath progressed and he presented to the emergency room in respiratory distress on 04/26/2024. The patient was diuresed with IV Lasix he has markedly improved he is now still on Airvo but is speaking in full sentences and eating without dyspnea. The patient does carry a long history of renal insufficiency his creatinine and early April was 2.45 it was 2.70 on admission yesterday is now down to 2.45 today. He did receive the CT angiogram yesterday. The patient is EKG was difficult to interpret due to baseline artifact on presentation yesterday. It appeared to be irregular regular but there were occasional P waves noted. Is difficult to tell if this was atrial fibrillation or some type of supraventricular tachycardia. Today after recovery of his respiratory failure the patient's the normal sinus rhythm. He has had short burst of what appears to be an SVT or possibly short runs of atrial fibs. Patient gives a history of known coronary disease status post bypass graft surgery. He also has a history of peripheral vascular disease his last intervention by Dr. Corral did not show any areas of his lower extremities that were revascularizable. The patient was due to have a right heart catheterization tomorrow at the [facility] through the pulmonary department. That has been scheduled for next week by his . Patient status post bypass graft surgery 2012 left internal mammary artery graft sequential to the first diagonal and left anterior descending. Saphenous vein graft to the OM branch of the circumflex and a saphenous vein graft to the PDA of the right coronary artery. The patient also had a history of carotid disease status post interventions. He has had bilateral renal artery stents in 2019. He carries a history of hyperlipidemia previous atrial flutter chronic kidney disease and a remote CVA with minimal deficit. An echocardiogram is pending at this time. [facility] Medical History History of pulmonary fibrosis History of chronic kidney disease History of atrial fibrillation Elevated troponin Hyperkalemia Weight loss, non-intentional Stage III chronic kidney disease BPH (benign prostatic hyperplasia) Insomnia Anemia GI bleed Anxiety Depression Kidney disease Former smoker On home oxygen therapy Atrial fibrillation Coronary artery disease Hypertension Respiratory failure with hypoxia CHF (congestive heart failure) Hypoxia Hemoptysis Hypoxia Interstitial lung disease Chronic cough Flu vaccine need Increased sputum production Generalized anxiety disorder Diarrhea Varicose veins of both lower extremities Arthritis Secondary pulmonary arterial hypertension FRANCISCO JAVIER (obstructive sleep apnea) Pleural effusion due to CHF (congestive heart failure) (08/27/19) Diverticulitis Hypoxia Elevated troponin (04/07/19) PND (post-nasal drip) Transient ischemic attack Anemia in chronic kidney disease (CKD) CVA (cerebral vascular accident) Stenosis of left subclavian artery Chronic kidney disease, stage 3 Renal artery stenosis Paroxysmal atrial flutter Bilateral carotid artery stenosis Peripheral vascular occlusive disease Atherosclerosis of coronary artery of [place] heart without angina pectoris Essential (primary) hypertension Hyperlipidemia Chronic diastolic (congestive) heart failure GERD (gastroesophageal reflux disease) Gout Arthritis Home Medications ?Medication ?Instructions ?Recorded ?Last Taken ?Type aspirin 81 mg chewable tablet 81 mg PO QHS Heart 08/03/19 04/25/24 History nitroglycerin 0.4 mg sublingual 0.4 mg sublingual PRN PRN Angina 08/14/22 Unknown Rx tablet #25 tabs ferrous sulfate 325 mg (65 mg 325 mg PO BID supplement 01/16/23 04/26/24 History iron) tablet (Feosol) ezetimibe 10 mg tablet 10 mg PO QHS cholesterol #90 tabs 09/02/23 04/25/24 Rx hydralazine 100 mg tablet 100 mg PO TID #270 tabs 09/25/23 04/26/24 Rx pirfenidone 267 mg tablet 801 mg PO TID Pulmonary fibrosis 09/25/23 04/26/24 History carvedilol 3.125 mg tablet 3.125 mg PO BID blood pressure #60 10/17/23 04/26/24 Rx tabs sertraline 50 mg tablet 50 mg PO DAILY mental health #90 11/05/23 04/26/24 Rx tabs atorvastatin 80 mg tablet 80 mg PO QHS for cholesterol #90 12/23/23 04/25/24 Rx TABLETS doxazosin 8 mg tablet 8 mg PO QHS #90 tabs 12/25/23 04/25/24 Rx amlodipine 10 mg tablet 10 mg PO DAILY blood pressure #90 03/03/24 04/26/24 Rx tabs qjxkxchsuemk-job-vceyj acid-vit 1 tab PO QDAY VITAMIN 03/23/24 04/26/24 History K-lycop 400 mcg-20 mcg-370 mcg tablet (Men's 50 Plus Multivitamin) isosorbide mononitrate 120 mg 120 mg PO QAM this is a dose 04/07/24 04/26/24 Rx tablet,extended release 24 hr increase #90 tabs sodium bicarbonate 650 mg tablet 1,300 mg PO TID kidneys 04/12/24 04/26/24 History bumetanide 1 mg tablet 1 mg PO BID CHF 04/23/24 04/26/24 History Allergy/AdvReac Type Severity Reaction Status Date / Time No Known Allergies Allergy Verified 04/26/24 15:55 Family History Son CAD (coronary artery disease) Brother CAD (coronary artery disease) Diabetes Brother CAD (coronary artery disease) Diabetes Other Anemia Arthritis CVA (cerebral vascular accident) Hyperlipemia Hypertension Kidney disease Skin cancer Surgical History H/O basal cell carcinoma excision (09/2018) History of left common carotid artery stent placement (2003) History of stent insertion of renal artery (10/01/19) History of angioplasty of peripheral vessel History of left heart catheterization (08/13/12) H/O coronary artery bypass surgery (08/14/12) History of herniorrhaphy History of right-sided carotid endarterectomy (05/2016) H/O colonoscopy History of knee replacement Social History Smoking Status: Former smoker Tobacco: How many years used: 15 how long ago did patient quit smokin second hand exposure: No alcohol intake: current alcohol intake frequency: holidays/special occasions only substance use type: does not use caffeine: Yes ROS Constitutional Constitutional: Reports systems reviewed and no addt'l complaints, except as documented Eyes Eyes: Reports systems reviewed and no addt'l complaints, except as documented ENT HEENT: Reports systems reviewed and no addt'l complaints, except as documented Cardiovascular Cardiovascular: Reports as per HPI Respiratory/Chest Respiratory/Chest: Reports as per HPI Gastrointestinal Gastrointestinal: Reports systems reviewed and no addt'l complaints, except as documented Genitourinary Genitourinary: Reports as per HPI Musculoskeletal Musculoskeletal: Reports systems reviewed and no addt'l complaints, except as documented Integumentary Integumentary: Reports systems reviewed and no addt'l complaints, except as documented Neurologic Neurologic: Reports as per HPI Psychiatric Psychiatric: Reports systems reviewed and no addt'l complaints, except as documented Endocrine Endocrinology: Reports systems reviewed and no addt'l complaints, except as documented Hematologic/Lymphatic Hematologic/Lymphatic: Reports systems reviewed and no addt'l complaints, except as documented Allergic/Immunologic Allergic/Immunologic: Reports systems reviewed and no addt'l complaints, except as documented Physical Exam Narrative Patient is a frail-appearing white male appearing his stated age Const alert and oriented x3 HEENT normocephalic Eyes PERRL Neck no JVD and no carotid bruits Chest inspection of chest normal Resp Auscultation: crackles bilateral base and rales bilateral (Dry rales) upper Cardio Rate: regular rate Rhythm: abnormal rhythm irregularly irregular and ectopic beats Heart Sounds: S1 normal, S2 normal and murmur systolic II/ soft right sternal border; Negative for click or gallop GI soft to palpation Extremity General Extremity: Negative for edema Neuro Neuro Narrative: Alert and oriented x 3 Psych mental status grossly normal Risk Stratification Risk Stratification Applicable: Yes Age >/= 65: Yes >/= 3 CAD Risk Factors (HTN, HLD, DM, family hx of CAD, or current smoker): Yes Aspirin Use in the Past 7 Days: Yes Severe Angina (>/= episodes in 24 hours): No EKG ST Changes >/= 0.5mm: No Positive Cardiac Marker: Yes ALEXANDRO Risk Stratification Score: 4 ALEXANDRO % Risk: 20% Risk Charges/Coding Visit Charges Inpatient E&M: 49737 Init Hosp L3 Objective Data Vital Signs: Vital Signs Temp Pulse Resp BP Pulse Ox O2 Del Method O2 Flow Rate 98.2 F 83 17 135/57 H 91 Airvo 60 04/27/24 12:00 04/27/24 12:00 04/27/24 12:00 04/27/24 12:00 04/27/24 12:00 04/27/24 12:28 04/27/24 12:28 FiO2 50 04/27/24 12:28 Oxygen Flow Rate (L/min) 60 Oxygen Delivery Method Airvo Weight: 147 lb 0.773 oz Body Mass Index (BMI) 22.4 Intake & Output: Intake and Output for Last 24 Hours 04/25/24 04/26/24 04/27/24 23:59 23:59 23:59 Intake Total 720 / 720 Output Total 225 / 325 875 / 875 Balance -225 / -205 -155 / -155 Lab / Micro Data Attestation: I reviewed the patient's lab results. 04/27/24 05:55 04/27/24 05:55 Labs: Laboratory Results - last 24 hr 04/26/24 16:15: WBC 16.6 H, RBC 3.03 L, Hgb 9.6 L, Hct 31.3 L, MCV 103.3 H, MCH 31.7, MCHC 30.7 L, RDW Std Deviation 61.4 H, RDW Coeff of Lisa 16.3 H, Plt Count 206, MPV 10.7, Immature Gran % (Auto) 0.700, Neut % (Auto) 81.9 H, Lymph % (Auto) 10.2 L, [place] % (Auto) 4.8, Eos % (Auto) 2.2, Baso % (Auto) 0.2, Absolute Neuts (auto) 13.6 H, Absolute Lymphs (auto) 1.69, Nucleated RBC % 0, Sodium 145, Potassium 5.0, Chloride 110 H, Carbon Dioxide 25.0, Anion Gap 10, BUN 74 H, Creatinine 2.70 H, Estim Creat Clear Calc 21.81, Est GFR (MDRD) Af Amer 30 L, Est GFR (MDRD) Non-Af 24 L, BUN/Creatinine Ratio 27.4 H, Glucose 268 H, Calcium 8.6, Troponin I High Sens 344 H*, B-Natriuretic Peptide 2775.8 H 04/26/24 17:58: Troponin I High Sens 359 H* 04/27/24 05:55: WBC 11.7 H, RBC 2.84 L, Hgb 9.1 L, Hct 29.6 L, MCV 104.2 H, MCH 32.0, MCHC 30.7 L, RDW Std Deviation 63.2 H, RDW Coeff of Lisa 16.5 H, Plt Count 176, MPV 10.9, Immature Gran % (Auto) 0.400, Neut % (Auto) 78.0 H, Lymph % (Auto) 12.7 L, [place] % (Auto) 5.6, Eos % (Auto) 3.0, Baso % (Auto) 0.3, Absolute Neuts (auto) 9.1 H, Absolute Lymphs (auto) 1.48, Nucleated RBC % 0, Sodium 144, Potassium 5.1, Chloride 110 H, Carbon Dioxide 29.0, Anion Gap 5, BUN 69 H, Creatinine 2.45 H, Estim Creat Clear Calc 23.44, Est GFR (MDRD) Af Amer 33 L, Est GFR (MDRD) Non-Af 27 L, BUN/Creatinine Ratio 28.2 H, Glucose 93, Calcium 8.2 L, Troponin I High Sens 949 H* 04/27/24 10:00: Troponin I High Sens 680 H* Micro: Microbiology 04/26/24 16:45 Mucosa - Nose SARS-CoV-2, Influenza & RSV (PCR) - Final ABG Data ABG results: ABG 04/26/24 16:29 Specimen Type ART Sample Site R Radial pH 7.40 Bicarbonate Actual 25.4 Total CO2 27 Base Excess 1 O2 Saturation 93 L O2 % 40.0 ABG pCO2 40.7 ABG pO2 66 L Jamel Test Positive Respiration Rate 12 O2 Delivery Device BiPAP Vent Mode Not entered POC PEEP 6 Rhythm Strip Rhythm Strip: Sinus Rhythm Rate: 78 Ectopy: - (SVT noted) Cardiology Labs/Tests 04/26/24 16:15: WBC 16.6 H, RBC 3.03 L, Hgb 9.6 L, Hct 31.3 L, MCV 103.3 H, MCH 31.7, MCHC 30.7 L, Plt Count 206, MPV 10.7, Immature Gran % (Auto) 0.700, Neut % (Auto) 81.9 H, Lymph % (Auto) 10.2 L, [place] % (Auto) 4.8, Eos % (Auto) 2.2, Baso % (Auto) 0.2, Absolute Neuts (auto) 13.6 H, Nucleated RBC % 0, Sodium 145, Potassium 5.0, Chloride 110 H, Carbon Dioxide 25.0, Anion Gap 10, BUN 74 H, Creatinine 2.70 H, Est GFR (MDRD) Af Amer 30 L, Est GFR (MDRD) Non-Af 24 L, BUN/Creatinine Ratio 27.4 H, Glucose 268 H, Calcium 8.6, B-Natriuretic Peptide 2775.8 H 04/26/24 16:29: pH 7.40, Bicarbonate Actual 25.4, Base Excess 1, O2 Saturation 93 L, ABG pCO2 40.7, ABG pO2 66 L, Jamel Test Positive 04/27/24 05:55: WBC 11.7 H, RBC 2.84 L, Hgb 9.1 L, Hct 29.6 L, MCV 104.2 H, MCH 32.0, MCHC 30.7 L, Plt Count 176, MPV 10.9, Immature Gran % (Auto) 0.400, Neut % (Auto) 78.0 H, Lymph % (Auto) 12.7 L, [place] % (Auto) 5.6, Eos % (Auto) 3.0, Baso % (Auto) 0.3, Absolute Neuts (auto) 9.1 H, Nucleated RBC % 0, Sodium 144, Potassium 5.1, Chloride 110 H, Carbon Dioxide 29.0, Anion Gap 5, BUN 69 H, Creatinine 2.45 H, Est GFR (MDRD) Af Amer 33 L, Est GFR (MDRD) Non-Af 27 L, BUN/Creatinine Ratio 28.2 H, Glucose 93, Calcium 8.2 L Rhythm: EKG: ECHO: Stress Test: Cardiac Cath: PCI: CT Surgery: Holter monitor: EPS: PPM: CXR: Chest CT Scan: Radiography Diagnostic Testing: Radiology Impression Chest CTA 04/26/24 16:15 IMPRESSION: 1. Negative for pulmonary embolism. 2. Mild/moderate bilateral pleural effusions with adjacent basilar atelectasis. 3. Mild subpleural pulmonary fibrotic changes. Borderline bronchiectasis. 4. Moderate cardiomegaly and coronary artery disease. One or more dose reduction techniques were used (e.g., Automated exposure control, adjustment of the mA and/or kV according to patient size, use of iterative reconstruction technique). Reading Location: [facility]
--- NOTE | 2024-04-27 12:41 | CHAPLAIN ---
Type of Pastoral Visit _x__ Initial Visit ___ Follow-up Visit ___ On-call Visit ___ General Patient Visit ___ Spiritual Assessment ___ Family Conference ___ Bereavement ___ Rapid Response ___ Code Blue ___ Other (describe below) Pastoral Care Referral From _x__ Patient ___ Family ___ Nurse ___ Physician ___ Amusement Or Recreation Card Checker ___ Financial Advocate ___ Other (describe below) Sacrament/Intervention _x__ Active listening ___ Anointing ___ Hindu ___ Bereavement ___ Communion ___ Lisa exploration ___ ___ Life review _x__ Prayer ___ Reconciliation ___ Sacrament of Sick ___ Supportive presence ___ Wedding ___ Other (describe below) Pastoral Comments patient returned to hospital and had been seen by this hoisting laborer previously; pt gives update, believes that things are going as expected, has no concerns; pt does ask for a prayer for better health
[2024-04-27] MEDS: Aspirin 81 MG TAB.CHEW PO (20:17)
[2024-04-27] MEDS: Doxazosin 4 MG Tablet 8 MG PO (20:18)
[2024-04-27] MEDS: Atorvastatin Calcium 80 MG Tablet PO (20:20)
[2024-04-27] MEDS: Ezetimibe 10 MG Tablet PO (20:20)
[2024-04-28] VITALS (32 sets, daily range): BP systolic 122–175; BP diastolic 41–109; PULSE 57–94; RESP 11–29; TEMP 36.2–37.1; O2SAT 81–100; BMI 21.2
[2024-04-28 03:23] LABS: Hemoglobin 7.9 g/dL (13.0-16.5); Mean Corp Hgb Conc 30.4 g/dL (32-36); Mean Corpuscular Hgb 31.6 pg (27.0-32.0); Mean Platelet Vol. 10.6 fl (6.2-12.0); Platelet Count 147 K/mm3 (150-450); RBC Distribution Width CV 16.2 % (11.6-14.6); RBC Distribution Width SD 61.8 fl (35.1-43.9); White Blood Count 10.1 K/mm3 (4.4-11.0)
[2024-04-28 03:48] LABS: Anion Gap 7 (5-15); BUN 70 mg/dL (7-18); BUN/Creat Ratio 26.9 RATIO (10-20); Chloride 108 mmol/L (98-107); EST Glomerular Filtration Rate 25 mL/min (>60); Est Glom Filt Rate - Afr Amer 31 mL/min (>60); Estimated Creatinine Clearance 21.03 ml/min; Glucose 88 mg/dL (74-106); Sodium Level 143 mmol/L (136-145)
[2024-04-28] MEDS: hydrALAZINE 50 MG Tablet 100 MG PO ×3 (05:24→19:43)
[2024-04-28] MEDS: Heparin Injection (Vial) 5,000 UNIT/ML VIAL 5000 UNIT SC ×3 (05:24→19:43)
[2024-04-28] MEDS: Sodium Bicarbonate 650 MG Tablet 1300 MG PO ×3 (05:25→19:44)
[2024-04-28] MEDS: Carvedilol 3.125 MG TABLET PO ×2 (07:43→17:35)
[2024-04-28] MEDS: Sertraline 50 MG Tablet PO (07:44)
[2024-04-28] MEDS: PIRFENIDONE 801 MG PO ×3 (07:45→17:35)
[2024-04-28] MEDS: Furosemide 40 MG/4 ML Vial IV ×2 (07:45→17:33)
[2024-04-28] MEDS: dilTIAZem CD 180 MG Capsule PO (07:46)
--- NOTE | 2024-04-28 08:00 | PCM.PN.INT ---
Assessment & Plan Assessment/Plan (1) Acute respiratory failure with hypoxia: PLAN: Plan RECOMMENDATIONS: 1. Continue to wean supplemental oxygen to maintain saturations at or above 90%. 2. Ongoing diuresis as tolerated by hemodynamics and renal function. 3. Encourage incentive spirometer use and mobilize patient as tolerated. 4. Plan for right heart catheterization next week at [facility]. IMPRESSIONS: 1. Respiratory failure with hypoxemia Appears secondary to exacerbation of underlying heart failure with preserved ejection fraction in a patient with known coronary artery disease status post CABG, with associated pulmonary hypertension, which is likely multifactorial in etiology. The patient did present with an elevated BNP and troponin. Cardiology is currently following to assist with medical management. Recommend continuing ongoing diuresis as tolerated by hemodynamics and renal function. The patient is followed by an outside able bodied tankerman at [facility]. There were tentative plans for the patient to undergo a right heart catheterization for workup of pulmonary hypertension next week. The patient appears to have an underlying component of IPF, based on the fact that he is maintained on pirfenidone on an outpatient basis. Thoracentesis can be considered if the patient does not improve clinically with diuresis. 2. History of chronic kidney disease/coronary artery disease/anemia/obstructive sleep apnea/hypertension/depression Complicates care, management, recovery and prognosis. Continue home medications as indicated. This note was generated with [employer] dictation software. It may contain incorrect words, spelling, and punctuation that were not noted in checking the note before signing. Subjective Subjective The patient was seen and examined at the bedside this morning. Events from the last 24 hours have been reviewed. The patient is currently afebrile, hemodynamically stable and maintaining appropriate oxygen saturations on 8 L/min via nasal cannula. Hemoglobin is dropped to 7.9 g/dL. White blood cell count is normal. Creatinine has increased mildly to 2.6. Objective Data Objective Data The patient's most recent lab work, culture data and imaging studies have all been personally reviewed. Surface echocardiogram demonstrated concentric LVH with an ejection fraction of 55% and a pulmonary artery systolic pressure of 50 mmHg. Vital Signs: Vital Signs Temp Pulse Resp BP Pulse Ox O2 Del Method O2 Flow Rate 98.7 F 73 13 139/73 H 94 Airvo 60 04/28/24 04:00 04/28/24 07:00 04/28/24 07:00 04/28/24 07:00 04/28/24 07:00 04/28/24 07:00 04/28/24 07:00 FiO2 40 04/28/24 07:00 Oxygen Flow Rate (L/min) 60 Oxygen Delivery Method Airvo Weight: 140 lb Body Mass Index (BMI) 21.2 Intake & Output: Intake and Output for Last 24 Hours 04/26/24 04/27/24 04/28/24 23:59 23:59 23:59 Intake Total 1200 / 1200 Output Total 225 / 325 1125 / 1325 500 / 500 Balance -225 / -205 75 / -125 -500 / -500 Lab / Micro Data Attestation: I reviewed the patient's lab results. 04/28/24 03:15 04/28/24 03:15 Labs: Laboratory Results - last 24 hr 04/27/24 10:00: Troponin I High Sens 680 H* 04/28/24 03:15: WBC 10.1, RBC 2.50 L, Hgb 7.9 L, Hct 26.0 L, MCV 104.0 H, MCH 31.6, MCHC 30.4 L, RDW Std Deviation 61.8 H, RDW Coeff of Lisa 16.2 H, Plt Count 147 L, MPV 10.6, Sodium 143, Potassium 5.0, Chloride 108 H, Carbon Dioxide 28.0, Anion Gap 7, BUN 70 H, Creatinine 2.60 H, Estim Creat Clear Calc 21.03, Est GFR (MDRD) Af Amer 31 L, Est GFR (MDRD) Non-Af 25 L, BUN/Creatinine Ratio 26.9 H, Glucose 88, Calcium 8.0 L Micro: Microbiology 04/26/24 16:45 Mucosa - Nose SARS-CoV-2, Influenza & RSV (PCR) - Final Radiography Diagnostic Testing: Radiology Impression Echocardiogram 04/26/24 19:03 Interpretation Summary The estimated ejection fraction is 50-55 %. The left atrium is mildly enlarged. Mild (1+) mitral valve insufficiency. Trivial aortic valve insufficiency. Ordering Physician: Emilee Song Referring Physician: FRANKY PETERSEN Performed By: Laverne Hayden RDCS Rhythm Strip Rhythm Strip: Sinus Rhythm Rate: 78 Ectopy: - (SVT noted) Physical Exam Const alert, oriented x3 and no apparent distress Constitutional Narrative: Sitting in bedside recliner. General Appearance: cooperative HEENT normocephalic, head/scalp atraumatic and moist oral mucous membranes Eyes PERRL, EOMs intact bilaterally and conjunctivae normal Neck supple General: trachea midline Chest inspection of chest normal Resp normal respiratory effort and no use of accessory muscles Auscultation: rales Cardio regular rate and regular rhythm Heart Sounds: murmur GI normal to inspection, nondistended, normoactive bowel sounds Extremity General Extremity: edema bilateral lower extremity; Negative for clubbing Skin no rashes or lesions noted Neuro CN's II-XII intact bilaterally, moves all extremities and no focal motor deficits Psych cooperative and affect normal Charges/Coding Visit Charges Inpatient E&M: 97898 Subs Hosp L2
--- NOTE | 2024-04-28 08:17 | PCM.PN.HOSP ---
Reason for Visit Reason for Visit: Diagnoses Essential (primary) hypertension (04/26/24) Atherosclerotic heart disease of [place] coronary artery without angina pectoris (04/26/24) Unspecified atrial flutter (04/26/24) Chronic diastolic (congestive) heart failure (04/26/24) Acute respiratory failure with hypoxia (04/26/24) Presence of aortocoronary bypass graft (04/26/24) Subjective Subjective Patient resting comfortably in bed, still short of breath but is significantly improving, cough with a little bit of sputum Objective Data Objective Data Vital Signs: Vital Signs Temp Pulse Resp BP Pulse Ox O2 Del Method O2 Flow Rate 98.7 F 73 13 139/73 H 94 Airvo 60 04/28/24 04:00 04/28/24 07:00 04/28/24 07:00 04/28/24 07:00 04/28/24 07:00 04/28/24 07:00 04/28/24 07:00 FiO2 40 04/28/24 07:00 Oxygen Flow Rate (L/min) 60 Oxygen Delivery Method Airvo Weight: 63.503 kg Body Mass Index (BMI) 21.2 Intake & Output: Intake and Output for Last 24 Hours 04/26/24 04/27/24 04/28/24 23:59 23:59 23:59 Intake Total 1200 / 1200 Output Total 225 / 325 1125 / 1325 500 / 500 Balance -225 / -205 75 / -125 -500 / -500 Lab / Micro Data 04/28/24 03:15 04/28/24 03:15 Labs: Laboratory Results - last 24 hr 04/27/24 10:00: Troponin I High Sens 680 H* 04/28/24 03:15: WBC 10.1, RBC 2.50 L, Hgb 7.9 L, Hct 26.0 L, MCV 104.0 H, MCH 31.6, MCHC 30.4 L, RDW Std Deviation 61.8 H, RDW Coeff of Lisa 16.2 H, Plt Count 147 L, MPV 10.6, Sodium 143, Potassium 5.0, Chloride 108 H, Carbon Dioxide 28.0, Anion Gap 7, BUN 70 H, Creatinine 2.60 H, Estim Creat Clear Calc 21.03, Est GFR (MDRD) Af Amer 31 L, Est GFR (MDRD) Non-Af 25 L, BUN/Creatinine Ratio 26.9 H, Glucose 88, Calcium 8.0 L Micro: Microbiology 04/26/24 16:45 Mucosa - Nose SARS-CoV-2, Influenza & RSV (PCR) - Final Radiography Diagnostic Testing: Radiology Impression Echocardiogram 04/26/24 19:03 Interpretation Summary The estimated ejection fraction is 50-55 %. The left atrium is mildly enlarged. Mild (1+) mitral valve insufficiency. Trivial aortic valve insufficiency. Ordering Physician: Emilee Song Referring Physician: FRANKY PETERSEN Performed By: Laverne Hayden RDCS Rhythm Strip Rhythm Strip: Sinus Rhythm Rate: 78 Ectopy: - (SVT noted) Physical Exam Narrative General: Alert, oriented, no apparent distress HEENT: Atraumatic, normocephalic Eyes: Anicteric, normal conjunctiva, extraocular movements grossly intact Neck: Supple Respiratory: Crackles at the bases, increased respiratory effort but continues to improve Cardiovascular: Regular rate GI: Soft, nontender, nondistended Extremities: No sig pitting edema Musculoskeletal: Moving all extremities Neuro: No overt focal neurological deficits Skin: No rashes appreciated Psych: Cooperative Assessment & Plan Assessment/Plan (1) Acute respiratory failure with hypoxia: PLAN: Plan # Hypoxia secondary to acute exacerbation of chronic heart failure with preserved ejection fraction -Admit to telemetry -BNP greater than 2700 -CTA with bilateral effusions -IV Lasix -Last echo 05/02/2022 with EF of 60% but moderate concentric left ventricular hypertrophy -Repeat echo ordered -Daily weights, I's and O's -Fluid restriction, heart healthy diet -04/27: Patient on IV Lasix twice daily, presently on Airvo, continue supportive care, given patient still in the ICU with respiratory failure, pulm did evaluate and recommended cardiology consult, cardiology evaluated and agrees with diuresis and he will be monitored. Echo with EF of 50 to 55% and left ventricular hypertrophy -04/28: Remains on Airvo but continues to improve, patient remains on IV diuresis and is tolerating this well, continue monitor daily weights and I's and O's, appreciate cardiology and pulm/crit input # Elevated troponin -Troponin 344 -No chest pain, suspect this secondary to hypoxia -No further acute workup at this time -EKG read out as A-fib however it appears to be more sinus arrhythmia with some artifact, rhythm strips also appear to be sinus, patient to be monitored on telemetry -If patient found to have A-fib can consider anticoagulation -04/27: Troponin trended up to 949 but patient has not had any chest pain, troponin subsequently trended down, no wall motion abnormalities noted -04/28: Patient denies any chest pain or other cardiac complaints today # CKD stage IV -Creatinine 2.70, slightly up from baseline which appears to be low to mid twos but does not meet criteria for BRAYDON -Could be component of cardiorenal given patient appears fluid overloaded -IV Lasix -Avoid nephrotoxic agents -Daily BMPs -Low threshold for nephrology involvement -04/27: Creatinine down to 2.45 with Lasix, suspect increased was in part cardiorenal, baseline, continuing diuresis this patient is continued to be in respiratory failure. Again low threshold for nephrology consult -04/28: # Pulmonary fibrosis -Complicates #1 -Patient chronically on pirfenidone -04/27: to bring in pirfenidone this a.m. -04/28: Pulmonology consulted, continue home medication, patient with as needed albuterol as well # History of coronary artery disease -Status post bypass in 2012 -Patient on beta-greg, ezetimibe, statin, aspirin -04/27: Continue home meds, no wall motion abnormalities -04/28: Patient on Coreg, Imdur, hydralazine and his amlodipine was changed to diltiazem as he has had somewhat of an irregular heartbeat, does not appear to be overtly fib, seems more like sinus arrhythmia, monitor how patient does on diltiazem as well as blood pressure # Chronic macrocytic anemia -Hemoglobin 9.6, appears to be at baseline -04/27: Hemoglobin 9.1, no signs or symptoms of bleeding, currently stable -04/28: Hemoglobin 7.9, yesterday 9.1 the baseline does seem to be around 8-9, may just be within margin of air as patient denies any bleeding, repeat in the a.m. if any further downtrend can consider changing heparin to SCDs and possible further workup, continue home iron in the meantime #FRANCISCO JAVIER -Continue home NIPPV if applicable -Patient was using the ED but was switched to nonrebreather as he breathes through his mouth and therefore was not tolerating nasal cannula as he was desaturating when he was not actively thinking about breathing through his nose -04/27: Patient presently on Airvo -04/28: Patient tolerating Airvo #Hypertension -Blood pressure 155/58 on admission, continue home antihypertensives -04/27: BP same 120/64, continue home medication at this time -04/28: Blood pressure 139/73 this a.m., patient's home meds were continued but amlodipine has been changed to diltiazem due to a sinus arrhythmia and possibly a brief burst of SVT, patient being monitored on telemetry, will assess how patient tolerates this Chronic medical problems: #Depression/anxiety -Continue home medications #DVT ppx: hep subq Emilee Song MD Charges/Coding Visit Charges Inpatient E&M: 13752 Subs Hosp L2
--- NOTE | 2024-04-28 09:06 | PN.CARD_ITS ---
Subjective Subjective Patient is resting comfortably seated in the chair on nasal cannula. He reports he is breathing easier but he has not been up in the room at all yet. I's and O's have been negative his creatinine is up slightly to 2.60. Blood pressure has been in the 140?150 systolic range and 50?75 diastolic. Heart rate is been 69-73 and appears to be more regular on his telemetry since the addition of diltiazem. Echocardiogram done yesterday showed an EF of 50-55% with concentric left ventricular prophy mild left atrial enlargement 1+ mitral regurgitation the pulmonary artery pressure of 50 the RV was read as normal size and normal systolic function. There was aortic valve sclerosis with no significant stenosis. This really represents no significant change from an old echocardiogram May 2022. Objective Data Vital Signs: Vital Signs Temp Pulse Resp BP Pulse Ox O2 Del Method O2 Flow Rate 98.7 F 73 13 139/73 H 94 Airvo 60 04/28/24 04:00 04/28/24 07:00 04/28/24 07:00 04/28/24 07:00 04/28/24 07:00 04/28/24 07:00 04/28/24 07:00 FiO2 40 04/28/24 07:00 Oxygen Flow Rate (L/min) 60 Oxygen Delivery Method Airvo Weight: 140 lb Body Mass Index (BMI) 21.2 Intake & Output: Intake and Output for Last 24 Hours 04/26/24 04/27/24 04/28/24 23:59 23:59 23:59 Intake Total 1200 / 1200 Output Total 225 / 325 1125 / 1325 500 / 500 Balance -225 / -205 75 / -125 -500 / -500 Lab / Micro Data 04/28/24 03:15 04/28/24 03:15 Labs: Laboratory Results - last 24 hr 04/27/24 10:00: Troponin I High Sens 680 H* 04/28/24 03:15: WBC 10.1, RBC 2.50 L, Hgb 7.9 L, Hct 26.0 L, MCV 104.0 H, MCH 31.6, MCHC 30.4 L, RDW Std Deviation 61.8 H, RDW Coeff of Lisa 16.2 H, Plt Count 147 L, MPV 10.6, Sodium 143, Potassium 5.0, Chloride 108 H, Carbon Dioxide 28.0, Anion Gap 7, BUN 70 H, Creatinine 2.60 H, Estim Creat Clear Calc 21.03, Est GFR (MDRD) Af Amer 31 L, Est GFR (MDRD) Non-Af 25 L, BUN/Creatinine Ratio 26.9 H, Glucose 88, Calcium 8.0 L Rhythm Strip Rhythm Strip: Sinus Rhythm Rate: 70 Ectopy: - (SVT noted) Cardiology Labs/Tests 04/28/24 03:15: WBC 10.1, RBC 2.50 L, Hgb 7.9 L, Hct 26.0 L, MCV 104.0 H, MCH 31.6, MCHC 30.4 L, Plt Count 147 L, MPV 10.6, Sodium 143, Potassium 5.0, C hloride 108 H, Carbon Dioxide 28.0, Anion Gap 7, BUN 70 H, Creatinine 2.60 H, E st GFR (MDRD) Af Amer 31 L, Est GFR (MDRD) Non-Af 25 L, BUN/Creatinine Ratio 26.9 H, Glucose 88, Calcium 8.0 L Rhythm: EKG: ECHO: Stress Test: Cardiac Cath: PCI: CT Surgery: Holter monitor: EPS: PPM: CXR: Chest CT Scan: Radiography Diagnostic Testing: Radiology Impression Echocardiogram 04/26/24 19:03 Interpretation Summary The estimated ejection fraction is 50-55 %. The left atrium is mildly enlarged. Mild (1+) mitral valve insufficiency. Trivial aortic valve insufficiency. Ordering Physician: Emilee Song Referring Physician: FRANKY PETERSEN Performed By: Laverne Hayden RDCS Physical Exam Narrative Patient resting company in the seated position in his chair on oxygen. Const alert and oriented x3 HEENT normocephalic Eyes PERRL Neck supple Resp normal respiratory effort Auscultation: crackles bilateral base and diminished lung sounds bilateral lower Cardio Rate: regular rate Rhythm: regular rhythm Heart Sounds: S1 normal, S2 normal and murmur systolic II/ soft mid right sternal border; Negative for click or gallop Extremity no pedal edema Neuro Neuro Narrative: Alert and oriented x 3 Psych mental status grossly normal Assessment & Plan Assessment/Plan (1) Acute respiratory failure with hypoxia: PLAN: Patient being managed by the pulmonary status and hospitalist. He is weaned down from Airvo to nasal cannula. The patient has been diuresed gently his creatinine was 2.7 on admission went down to 2.5 and today is up to 2.6. The patient also is anemic hemoglobin dropped from 9.1-7.9. (2) Chronic kidney disease, stage IV (severe): PLAN: Patient's renal function has been monitored closely his GFR is 25 on today's blood work. (3) Atherosclerosis of coronary artery of [place] heart without angina pectoris: QUALIFIERS: Coronary Disease-Associated Artery/Lesion type: [place] artery Qualified Code(s): I25.10 - Atherosclerotic heart disease of [place] coronary artery without angina pectoris PLAN: Patient denies any anginal symptoms. Patient status post coronary bypass graft surgery with a sequential BALES graft to the LAD diagonal vein graft to the OM branch of the circumflex and a vein graft to the PDA of the right coronary artery. (4) Paroxysmal atrial flutter: PLAN: Patient has had some short burst of frequent PACs but no definitive atrial fibrillation or flutter. We had switched his amlodipine to diltiazem in hopes of improving the rhythm control and avoiding any type of atrial fibrillation which could have can attributed to his decompensation. The patient's had no significant documented atrial fibs or flutter. He is not on oral anticoagulation at this time. (5) Essential (primary) hypertension: PLAN: Blood pressures run in the 140?150 range systolic over 50?75 diastolic. Will continue to monitor this as we may need to increase his Coreg and/or diltiazem. (6) Anemia in chronic kidney disease (CKD): QUALIFIERS: Chronic kidney disease stage: stage 3 (moderate) C hronic kidney disease stage 3 subtype: stage 3b (GFR 30-44) Qualified Code(s): N18.32 - Chronic kidney disease, stage 3b; D63.1 - Anemia in chronic kidney disease PLAN: Patient's hemoglobin this morning is 7.9 this should be monitored closely if it continues to drop he would probably require and benefit from transfusion to hemoglobin of 8 given his hypoxia pulmonary fibrosis renal insufficiency and cardiovascular status. PLAN: Plan 1. Will continue diltiazem and Coreg may need to titrate depending on heart rate and blood pressure response. 2. The patient is scheduled to be evaluated with right heart catheterization at the [facility] early next week. 3. We are unable to make significant gains in stabilizing the patient consideration should be given of transferring the patient to the [facility]. 4. Monitor the patient's hemoglobin for further evaluation as needed. He has a history of anemia. Charges/Coding Visit Charges Inpatient E&M: 20220 Subs Hosp L3
[2024-04-28] MEDS: Ferrous Sulfate 325 MG Tablet PO ×2 (11:56→17:34)
[2024-04-28] MEDS: Ezetimibe 10 MG Tablet PO (19:44)
[2024-04-28] MEDS: Doxazosin 4 MG Tablet 8 MG PO (19:44)
[2024-04-28] MEDS: Atorvastatin Calcium 80 MG Tablet PO (19:45)
[2024-04-28] MEDS: Aspirin 81 MG TAB.CHEW PO (19:48)
[2024-04-29] VITALS (23 sets, daily range): BP systolic 141–187; BP diastolic 50–100; PULSE 62–105; RESP 13–28; TEMP 36.4–36.9; O2SAT 90–100; BMI 21.4
[2024-04-29 04:20] LABS: Hematocrit 27.9 % (40-54); Hemoglobin 8.8 g/dL (13.0-16.5); Mean Corp Hgb Conc 31.5 g/dL (32-36); Mean Corpuscular Hgb 32.1 pg (27.0-32.0); Mean Corpuscular Volume 101.8 fL (80-94); Mean Platelet Vol. 10.1 fl (6.2-12.0); Platelet Count 139 K/mm3 (150-450); RBC Distribution Width CV 15.9 % (11.6-14.6); RBC Distribution Width SD 58.4 fl (35.1-43.9); Red Blood Count 2.74 M/mm3 (4.6-6.2); White Blood Count 9.1 K/mm3 (4.4-11.0)
[2024-04-29 04:42] LABS: BUN 64 mg/dL (4-19); BUN/Creat Ratio 25.6 RATIO (10-20); Creatinine, Serum 2.5 mg/dL (0.8-1.3); EST Glomerular Filtration Rate 25 (>60); Estimated Creatinine Clearance 21.87 ml/min; Glucose 101 mg/dL (70-99)
[2024-04-29] MEDS: hydrALAZINE 50 MG Tablet 100 MG PO ×3 (05:01→21:13)
[2024-04-29] MEDS: Heparin Injection (Vial) 5,000 UNIT/ML VIAL 5000 UNIT SC ×3 (05:02→21:14)
[2024-04-29] MEDS: Sodium Bicarbonate 650 MG Tablet 1300 MG PO ×3 (05:02→21:13)
[2024-04-29 06:20] LABS: Anion Gap 15 (5-15); Calcium,Total 7.7 mg/dL (7.6-11.0); Carbon Dioxide 23.9 mmol/L (21.0-32.0); Chloride 102 mmol/L (98-107); Potassium 4.9 mmol/L (3.5-5.1); Sodium Level 141 mmol/L (136-145)
--- NOTE | 2024-04-29 07:11 | PCM.PN.HOSP ---
Reason for Visit Reason for Visit: Shortness of breath Subjective Subjective Patient has required up titration of oxygen again. Had been on Airvo and now on 13 L nasal cannula. Did have an episode earlier today where he got up independently and went to the bathroom. Nursing went in the slid to the floor with no injury. He was off oxygen and did that himself when he walked to the bathroom. Per discussion with his he does have a history of pulmonary fibrosis and follows at [facility] with pulmonary medicine. They have an upcoming appointment for pulmonary medicine visit and a right heart cath. He has never had a right heart cath. His did indicate at his last appointment on April 07 his primary psychometrician did tell him to enjoy what time he had. We did briefly discuss the options for palliative care and hospice as well as ongoing aggressive management potential transfer to [facility]. They are going to consider things tonight as we diurese him further and see how he is feeling tomorrow. Objective Data Objective Data Vital Signs: Vital Signs Temp Pulse Resp BP Pulse Ox O2 Del Method O2 Flow Rate 97.5 F L 74 13 160/61 H 99 Airvo 50 04/29/24 04:00 04/29/24 07:00 04/29/24 07:00 04/29/24 07:00 04/29/24 07:00 04/29/24 07:00 04/29/24 07:00 FiO2 92 04/29/24 07:00 Oxygen Flow Rate (L/min) 50 Oxygen Delivery Method Airvo Weight: 63.957 kg Body Mass Index (BMI) 21.4 Intake & Output: Intake and Output for Last 24 Hours 04/27/24 04/28/24 04/29/24 23:59 23:59 23:59 Intake Total 1200 / 1200 Output Total 1125 / 1325 1175 / 1475 600 / 600 Balance 75 / -125 -1175 / -1475 -600 / -600 Lab / Micro Data 04/29/24 04:10 04/29/24 04:10 Labs: Laboratory Results - last 24 hr 04/29/24 04:10: WBC 9.1, RBC 2.74 L, Hgb 8.8 L, Hct 27.9 L, MCV 101.8 H, MCH 32.1 H, MCHC 31.5 L, RDW Std Deviation 58.4 H, RDW Coeff of Lisa 15.9 H, Plt Count 139 L, MPV 10.1, Sodium 141, Potassium 4.9, Chloride 102, Carbon Dioxide 23.9, Anion Gap 15, BUN 64 H, Creatinine 2.5 H, Estim Creat Clear Calc 21.87, Est GFR (MDRD) Af Amer Not Reportable, Est GFR (MDRD) Non-Af 25 L, BUN/Creatinine Ratio 25.6 H, Glucose 101 H, Calcium 7.7 Micro: Microbiology 04/26/24 16:45 Mucosa - Nose SARS-CoV-2, Influenza & RSV (PCR) - Final Rhythm Strip Rhythm Strip: Sinus Rhythm Rate: 70 Ectopy: - (SVT noted) Physical Exam Const alert, oriented x3 and no apparent distress Constitutional Narrative: Thin, white male, sitting up in bed currently on 13 L nasal cannula, Some mild dyspnea on conversation, does not appear toxic, at bedside HEENT head/scalp atraumatic and moist oral mucous membranes HEENT Narrative: No thrush, Mallampati 2 Head and Scalp: normocephalic Neck supple Neck Narrative: Trachea midline Resp No normal respiratory effort, no retractions, no use of accessory muscles and No clear to auscultation bilaterally Resp Narrative: Scattered crackles diffusely, tachypnea and conversational dyspnea but no signs of extremis Auscultation: rales; Negative for rhonchi or wheezes Cardio regular rate, S1 normal heart sound, S2 normal heart sound, no murmurs, no rub, no gallops and no clicks Cardio Narrative: Irregularly irregular rhythm GI normal to inspection, nondistended, normoactive bowel sounds, soft to palpation and non-tender GI Narrative: Thin Extremity Extremity Narrative: Trace to 1+ bilateral lower extremity pitting edema, no cyanosis or clubbing Neuro oriented x3, moves all extremities and no focal motor deficits Speech: speech normal Psych Psych Narrative: Affect is flat but patient interacts appropriately Assessment & Plan Assessment/Plan (1) Acute respiratory failure with hypoxia: (2) Chronic kidney disease, stage IV (severe): PLAN: Plan Acute on chronic hypoxic respiratory failure -Multifactorial with pulmonary fibrosis and acute on chronic HFpEF -Patient does follow with pulmonary medicine at [facility] -Plan was for right heart cath next week and an appointment to see him on the or 06 May -Continue aggressive diuresis and was transitioned to Lasix drip today -Depending on renal function could consider metolazone tomorrow -Continue I-S and Acapella -Titrate oxygen as needed -Patient does not appear to have significant amount of fluid to pursue thoracentesis at this point -Restart home pirfenidone at discharge -May need to consider transfer to tertiary center depending on progression of disease if patient would like to remain aggressive Paroxysmal atrial flutter/atrial fibrillation -Patient was not in A-fib today -Amlodipine was switched to diltiazem and this could be contributing to lower extremity edema -Cardiology is following and appreciate input CAD/essential hypertension/hyperlipidemia -status post coronary bypass graft surgery with a sequential BALES graft to the LAD diagonal vein graft to the OM branch of the circumflex and a vein graft to the PDA of the right coronary artery -Continue home Zetia and atorvastatin -Continue home aspirin -Continue transition from amlodipine to diltiazem -Continue home Coreg and increase dose to 6.25 mg from 3.125 -Continue home isosorbide mononitrate Chronic anemia secondary to renal disease -Nephrology is consulted -Anemia stable -Continue home oral iron BRAYDON on CKD stage IV/history of renal artery stenosis -Baseline creatinine is between 1.8 and 2.0 over the last 6 months -Has clinically worsened -Had been on ELEAZAR inhibitor and SLG 2 inhibitor but discontinued ELEAZAR inhibitor due to hyperkalemia -Previous renal artery stents -Nephrology is okay with continued Lasix drip at this time but agrees that the patient should likely be transferred to tertiary center however not desiring transfer at this time -Continue home bicarb Pulmonary fibrosis -Restart medicine at discharge -May need transfer to tertiary center -Did discuss hospice and palliative care with patient and family today and they will consider -Require considerable amount of oxygen at this time FRANCISCO JAVIER -Patient does not use CPAP regularly at home -Continue supplemental oxygen at night Depression/anxiety -Continue home sertraline DVT prophylaxis -Continue subcu heparin CODE STATUS -Full code as verified at the time of admission Charges/Coding Visit Charges Inpatient E&M: 67383 Subs Hosp L2
--- NOTE | 2024-04-29 08:06 | PN.CC_ITS ---
Assessment & Plan Assessment/Plan (1) Acute respiratory failure with hypoxia: PLAN: Plan RECOMMENDATIONS: 1. Continue to wean supplemental oxygen to maintain saturations at or above 90%. 2. Transition from IV push Lasix to continuous infusion. 3. Encourage incentive spirometer use and mobilize patient as tolerated. 4. Plan for right heart catheterization next week at [facility]. IMPRESSIONS: 1. Respiratory failure with hypoxemia Appears secondary to exacerbation of underlying heart failure with preserved ejection fraction in a patient with known coronary artery disease status post CABG, with associated pulmonary hypertension, which is likely multifactorial in etiology. The patient did present with an elevated BNP and troponin. Cardiology is currently following to assist with medical management. Recommend continuing ongoing diuresis as tolerated by hemodynamics and renal function. The patient is followed by an outside environmental studies faculty member at [facility]. There were tentative plans for the patient to undergo a right heart catheterization for workup of pulmonary hypertension next week. The patient appears to have an underlying component of IPF, based on the fact that he is maintained on pirfenidone on an outpatient basis. Thoracentesis can be considered if the patient does not improve clinically with diuresis. 2. History of chronic kidney disease/coronary artery disease/anemia/obstructive sleep apnea/hypertension/depression Complicates care, management, recovery and prognosis. Continue home medications as indicated. This note was generated with [employer] dictation software. It may contain incorrect words, spelling, and punctuation that were not noted in checking the note before signing. Subjective Subjective The patient was seen and examined at the bedside this morning. Events from the last 24 hours have been reviewed. Last evening, the patient was placed back on heated high flow oxygen after he desaturated while ambulating to the bathroom. This morning, the patient was successfully transitioned back to nasal cannula oxygen at 10 L/min. The patient continues to tolerate diuresis. White blood cell count is normal. Hemoglobin and platelet count are stable. Creatinine is stable at 2.5. Objective Data Objective Data The patient's most recent lab work, culture data and imaging studies have all been personally reviewed. Surface echocardiogram demonstrated concentric LVH with an ejection fraction of 55% and a pulmonary artery systolic pressure of 50 mmHg. Vital Signs: Vital Signs Temp Pulse Resp BP Pulse Ox O2 Del Method O2 Flow Rate 97.5 F L 70 22 H 160/61 H 100 Airvo 50 04/29/24 04:00 04/29/24 07:24 04/29/24 07:24 04/29/24 07:00 04/29/24 07:24 04/29/24 07:24 04/29/24 07:24 FiO2 60 04/29/24 07:24 Oxygen Flow Rate (L/min) 50 Oxygen Delivery Method Airvo Weight: 141 lb Body Mass Index (BMI) 21.4 Intake & Output: Intake and Output for Last 24 Hours 04/27/24 04/28/24 04/29/24 23:59 23:59 23:59 Intake Total 1200 / 1200 Output Total 1125 / 1325 1175 / 1475 600 / 600 Balance 75 / -125 -1175 / -1475 -600 / -600 Lab / Micro Data Attestation: I reviewed the patient's lab results. 04/29/24 04:10 04/29/24 04:10 Labs: Laboratory Results - last 24 hr 04/29/24 04:10: WBC 9.1, RBC 2.74 L, Hgb 8.8 L, Hct 27.9 L, MCV 101.8 H, MCH 32.1 H, MCHC 31.5 L, RDW Std Deviation 58.4 H, RDW Coeff of Lisa 15.9 H, Plt Count 139 L, MPV 10.1, Sodium 141, Potassium 4.9, Chloride 102, Carbon Dioxide 23.9, Anion Gap 15, BUN 64 H, Creatinine 2.5 H, Estim Creat Clear Calc 21.87, Est GFR (MDRD) Af Amer Not Reportable, Est GFR (MDRD) Non-Af 25 L, B UN/Creatinine Ratio 25.6 H, Glucose 101 H, Calcium 7.7 Micro: Microbiology 04/26/24 16:45 Mucosa - Nose SARS-CoV-2, Influenza & RSV (PCR) - Final Radiography Diagnostic Testing: Radiology Impression Echocardiogram 04/26/24 19:03 Interpretation Summary The estimated ejection fraction is 50-55 %. The left atrium is mildly enlarged. Mild (1+) mitral valve insufficiency. Trivial aortic valve insufficiency. Ordering Physician: Emilee Song Referring Physician: FRANKY PETERSEN Performed By: Laverne Hayden RDCS Rhythm Strip Rhythm Strip: Sinus Rhythm Rate: 70 Ectopy: - (SVT noted) Physical Exam Const alert, oriented x3 and no apparent distress Constitutional Narrative: Sitting in bedside recliner. General Appearance: cooperative HEENT normocephalic, head/scalp atraumatic and moist oral mucous membranes Eyes PERRL, EOMs intact bilaterally and conjunctivae normal Neck supple General: trachea midline Chest inspection of chest normal Resp normal respiratory effort and no use of accessory muscles Auscultation: rales bilateral lower Cardio regular rate and regular rhythm Heart Sounds: murmur GI normal to inspection, nondistended, normoactive bowel sounds Extremity General Extremity: edema bilateral lower extremity; Negative for clubbing Skin no rashes or lesions noted Neuro CN's II-XII intact bilaterally, moves all extremities and no focal motor deficits Psych cooperative and affect normal Charges/Coding Visit Charges Inpatient E&M: 27371 Subs Hosp L2
[2024-04-29] MEDS: Carvedilol 6.25 MG Tablet PO ×2 (09:43→16:46)
[2024-04-29] MEDS: dilTIAZem CD 180 MG Capsule PO (09:45)
[2024-04-29] MEDS: Furosemide 40 MG/4 ML Vial IV (09:45)
[2024-04-29] MEDS: PIRFENIDONE 801 MG PO ×3 (09:45→16:44)
[2024-04-29] MEDS: Sertraline 50 MG Tablet PO ×2 (09:45)
[2024-04-29] MEDS: 0.9% Saline Lock 10 ML Syringe IV ×2 (09:45→11:24)
[2024-04-29] MEDS: Furosemide 500 MG in Empty Viaflex 50 mL 1 EACH CONT INF (11:25)
[2024-04-29] MEDS: Ferrous Sulfate 325 MG Tablet PO ×2 (12:15→16:45)
--- NOTE | 2024-04-29 12:48 | CON.PCM.RE_ITS ---
Assessment & Plan Assessment/Plan (1) Chronic kidney disease, stage IV (severe): PLAN: Acute renal failure CKD stage IV Baseline creatinine is around 1.8-2.0. Over the last 6 months, clinically worsened. Initially proteinuria has worsened. We started him on max dose ELEAZAR inhibitor, SGLT2 inhibitor. Proteinuria did improve. Unfortunately had persistent hyperkalemia requiring discontinuation of ELEAZAR inhibitor. History of renal artery stenosis, status post stenting. Repeat renal Dopplers are negative x 2. History of pulmonary fibrosis. Follows with pulmonology at [facility]. He was on antifibrotic agent. Oxygen requirements have increased significantly recently. Currently he is on [address] chest reviewed, extensive scarring, effusions. Troponins were marginally elevated, likely demand ischemia as per primary. Echocardiogram with decent ejection fraction, moderate pulmonary hypertension. He was scheduled to have right heart cath with pulmonology next week. Admitted twice with shortness of breath. Does not have much peripheral edema. I think most of the shortness of breath is related to his lung issues. He might be better off with transfer to [facility] for pulmonary hypertension evaluation. Discussed with . Patient at this time is not willing to get transferred. Lasix drip ordered by ICU service today. Will assess response. dw Dr Murphy (2) Pulmonary fibrosis: HPI Consult Data Date of Consult: 04/29/24 HPI Narrative Reason for Consultation: BRAYDON HPI Narrative: EKTA CONWAY, is a 78 M who presents To the hospital with shortness of breath. He is well-known to me. He has known history of CKD stage IIIb/IV. Baseline creatinine around 1.8-2.0. Prior history of renal artery stenosis, status post stenting Pulmonary fibrosis, sees pulmonology at [facility]. He is on an antifibrotic agent. Original plan was to get a right heart cath next week as outpatient. Over the last 1 to 2 months, he has had issues with worsening shortness of breath, acute renal failure, hyperkalemia. He was on lisinopril, Farxiga. We had to stop the lisinopril due to persistent hyperkalemia. Repeat renal Dopplers negative. called our office couple of weeks ago with complaints of shortness of breath, lower extremity edema. He was advised to start taking Bumex. He was admitted here last week with shortness of breath, treated for congestive heart failure. Came back with about the same symptoms. Currently does not have much lower extremity edema. 1+ lower extremity edema. [facility] Medical History History of pulmonary fibrosis History of chronic kidney disease History of atrial fibrillation Elevated troponin Hyperkalemia Weight loss, non-intentional Stage III chronic kidney disease BPH (benign prostatic hyperplasia) Insomnia Anemia GI bleed Anxiety Depression Kidney disease Former smoker On home oxygen therapy Atrial fibrillation Coronary artery disease Hypertension Respiratory failure with hypoxia CHF (congestive heart failure) Hypoxia Hemoptysis Hypoxia Interstitial lung disease Chronic cough Flu vaccine need Increased sputum production Generalized anxiety disorder Diarrhea Varicose veins of both lower extremities Arthritis Secondary pulmonary arterial hypertension FRANCISCO JAVIER (obstructive sleep apnea) Pleural effusion due to CHF (congestive heart failure) (08/27/19) Diverticulitis Hypoxia Elevated troponin (04/07/19) PND (post-nasal drip) Transient ischemic attack Anemia in chronic kidney disease (CKD) CVA (cerebral vascular accident) Stenosis of left subclavian artery Chronic kidney disease, stage 3 Renal artery stenosis Paroxysmal atrial flutter Bilateral carotid artery stenosis Peripheral vascular occlusive disease Atherosclerosis of coronary artery of [place] heart without angina pectoris Essential (primary) hypertension Hyperlipidemia Chronic diastolic (congestive) heart failure GERD (gastroesophageal reflux disease) Gout Arthritis Home Medications ?Medication ?Instructions ?Recorded ?Last Taken ?Type aspirin 81 mg chewable tablet 81 mg PO QHS Heart 08/0204/25/24 History nitroglycerin 0.4 mg sublingual 0.4 mg sublingual PRN PRN Angina 08/14/22 Unknown Rx tablet #25 tabs ferrous sulfate 325 mg (65 mg 325 mg PO BID supplement 01/16/23 04/26/24 History iron) tablet (Feosol) ezetimibe 10 mg tablet 10 mg PO QHS cholesterol #90 tabs 09/02/23 04/25/24 Rx hydralazine 100 mg tablet 100 mg PO TID #270 tabs 09/0204/26/24 Rx pirfenidone 267 mg tablet 801 mg PO TID Pulmonary fibr osis 09/25/23 04/26/24 History carvedilol 3.125 mg tablet 3.125 mg PO BID blood press ure #60 10/17/23 04/26/24 Rx tabs sertraline 50 mg tablet 50 mg PO DAILY mental health #90 11/05/23 04/26/24 Rx tabs atorvastatin 80 mg tablet 80 mg PO QHS for cholesterol #90 12/23/23 04/25/24 Rx TABLETS doxazosin 8 mg tablet 8 mg PO QHS #90 tabs 4 04/25/24 Rx amlodipine 10 mg tablet 10 mg PO DAILY blood pressur e #90 03/03/24 04/26/24 Rx tabs cshwqksmzqmk-rvy-sunyl acid-vit 1 tab PO QDAY VITAMIN 03/23/24 04/26/24 History K-lycop 400 mcg-20 mcg-370 mcg tablet (Men's 50 Plus Multivitamin) isosorbide mononitrate 120 mg 120 mg PO QAM this is a dose 04/07/24 04/26/24 Rx tablet,extended release 24 hr increase #90 tabs sodium bicarbonate 650 mg tablet 1,300 mg PO TID kidne ys 04/12/24 04/26/24 History bumetanide 1 mg tablet 1 mg PO BID CHF 04/23/24 History Allergy/AdvReac Type Severity Reaction Status Date / Time No Known Allergies Allergy Verified 04/26/24 15:55 Family History Son CAD (coronary artery disease) Brother CAD (coronary artery disease) Diabetes Brother CAD (coronary artery disease) Diabetes Other Anemia Arthritis CVA (cerebral vascular accident) Hyperlipemia Hypertension Kidney disease Skin cancer Surgical History H/O basal cell carcinoma excision (09/2018) History of left common carotid artery stent placement (2003) History of stent insertion of renal artery (10/01/19) History of angioplasty of peripheral vessel History of left heart catheterization (08/13/12) H/O coronary artery bypass surgery (08/14/12) History of herniorrhaphy History of right-sided carotid endarterectomy (05/2016) H/O colonoscopy History of knee replacement Social History Smoking Status: Former smoker Tobacco: How many years used: 15 how long ago did patient quit smokin second hand exposure: No alcohol intake: current alcohol intake frequency: holidays/special occasions only substance use type: does not use caffeine: Yes ROS ROS Narrative negative except above Physical Exam Narrative Alert awake oriented x 3 no obvious distress no pallor no icterus no JVD s1s2 no murmurs lungs clear abdomen soft no organomegaly no edema no cyanosis Lab / Micro Data 04/29/24 04:10 04/29/24 04:10 Labs: Laboratory Results - last 24 hr 04/29/24 04:10: WBC 9.1, RBC 2.74 L, Hgb 8.8 L, Hct 27.9 L, MCV 101.8 H, MCH 32.1 H, MCHC 31.5 L, RDW Std Deviation 58.4 H, RDW Coeff of Lisa 15.9 H, Plt Count 139 L, MPV 10.1, Sodium 141, Potassium 4.9, Chloride 102, Carbon Dioxide 23.9, Anion Gap 15, BUN 64 H, Creatinine 2.5 H, Estim Creat Clear Calc 21.87, Est GFR (MDRD) Af Amer Not Reportable, Est GFR (MDRD) Non-Af 25 L, B UN/Creatinine Ratio 25.6 H, Glucose 101 H, Calcium 7.7 Micro: Microbiology 04/28/24 10:40 Sputum, Expectorated/Coughed Gram Stain - Final 04/28/24 10:40 Sputum, Expectorated/Coughed Respiratory Culture - Preliminary GNR Poss Pseudomonas sp Rhythm Strip Rhythm Strip: Sinus Rhythm Rate: 70 Ectopy: - (SVT noted)
--- NOTE | 2024-04-29 14:10 | NURSING ---
Report given to ANGELIKA Mayberry and Ranjit RN who will resume care of this patient at this time.
[2024-04-29] MEDS: Aspirin 81 MG TAB.CHEW PO (21:13)
[2024-04-29] MEDS: Atorvastatin Calcium 80 MG Tablet PO (21:14)
[2024-04-29] MEDS: Doxazosin 4 MG Tablet 8 MG PO (21:15)
[2024-04-30] VITALS (13 sets, daily range): BP systolic 140–160; BP diastolic 48–107; PULSE 57–80; RESP 13–19; TEMP 36.3–37.1; O2SAT 92–100; BMI 22.1
[2024-04-30] MEDS: Ezetimibe 10 MG Tablet PO ×2 (00:21→21:33)
[2024-04-30] MEDS: Sodium Bicarbonate 650 MG Tablet 1300 MG PO (05:08)
[2024-04-30] MEDS: hydrALAZINE 50 MG Tablet 100 MG PO ×3 (05:08→21:32)
[2024-04-30] MEDS: Heparin Injection (Vial) 5,000 UNIT/ML VIAL 5000 UNIT SC ×3 (05:08→21:33)
--- NOTE | 2024-04-30 07:50 | PCM.PN.INT ---
Assessment & Plan Assessment/Plan (1) Acute respiratory failure with hypoxia: PLAN: Plan RECOMMENDATIONS: 1. Continue to wean supplemental oxygen to maintain saturations at or above 90%. 2. Continue Lasix infusion as tolerated by hemodynamics and renal function. 3. Start antimicrobials to address Pseudomonas isolated from sputum culture. 4. Encourage incentive spirometer use and mobilize patient as tolerated. 5. Plan for right heart catheterization next week at [facility]. IMPRESSIONS: 1. Respiratory failure with hypoxemia Appears secondary to exacerbation of underlying heart failure with preserved ejection fraction in a patient with known coronary artery disease status post CABG, with associated pulmonary hypertension, which is likely multifactorial in etiology. The patient did present with an elevated BNP and troponin. Cardiology is currently following to assist with medical management. Recommend continuing ongoing diuresis as tolerated by hemodynamics and renal function. The patient is followed by an outside commercial collections specialist at [facility]. There were tentative plans for the patient to undergo a right heart catheterization for workup of pulmonary hypertension next week. The patient also appears to have an underlying component of IPF, based on the fact that he is maintained on pirfenidone on an outpatient basis. Lastly, the patient did have a sputum culture, which was positive for pansensitive Pseudomonas aeruginosa, for which antimicrobials have been initiated. 2. History of chronic kidney disease/coronary artery disease/anemia/obstructive sleep apnea/hypertension/depression Complicates care, management, recovery and prognosis. Continue home medications as indicated. This note was generated with [employer] dictation software. It may contain incorrect words, spelling, and punctuation that were not noted in checking the note before signing. Subjective Subjective The patient was seen and examined at the bedside this morning. Events from the last 24 hours have been reviewed. The patient is currently afebrile, hemodynamically stable and maintaining appropriate oxygen saturations on 10 L/min via nasal cannula. The patient is currently documented to be overall net -3.2 L for the hospitalization. Sputum culture was also noted to be positive for Pseudomonas this morning. Therefore, antibiotics were initiated. White blood cell count is normal. Hemoglobin and platelet count are stable. Creatinine is stable at 2.5. Objective Data Objective Data The patient's most recent lab work, culture data and imaging studies have all been personally reviewed. Surface echocardiogram demonstrated concentric LVH with an ejection fraction of 55% and a pulmonary artery systolic pressure of 50 mmHg. Sputum culture dated April 28 was positive for Pseudomonas aeruginosa. Vital Signs: Vital Signs Temp Pulse Resp BP Pulse Ox O2 Del Method O2 Flow Rate 98.2 F 66 17 155/48 H 100 High Flow 10 04/30/24 03:33 04/30/24 05:08 04/30/24 03:33 04/30/24 05:08 04/30/24 03:33 04/30/24 03:33 04/30/24 03:33 FiO2 57 04/29/24 08:00 Oxygen Flow Rate (L/min) 10 Oxygen Delivery Method High Flow Weight: 145 lb 12.8 oz Body Mass Index (BMI) 22.1 Intake & Output: Intake and Output for Last 24 Hours 04/28/24 04/29/24 04/30/24 23:59 23:59 23:59 Intake Total 490 / 740 500 / 500 Output Total 1175 / 1475 2125 / 2450 775 / 775 Balance -1175 / -1475 -1635 / -1710 -275 / -275 Lab / Micro Data Attestation: I reviewed the patient's lab results. 04/30/24 07:44 04/30/24 07:44 Labs: Laboratory Results - last 24 hr 04/29/24 04:10: WBC 9.1, RBC 2.74 L, Hgb 8.8 L, Hct 27.9 L, MCV 101.8 H, MCH 32.1 H, MCHC 31.5 L, RDW Std Deviation 58.4 H, RDW Coeff of Lisa 15.9 H, Plt Count 139 L, MPV 10.1, Sodium 141, Potassium 4.9, Chloride 102, Carbon Dioxide 23.9, Anion Gap 15, BUN 64 H, Creatinine 2.5 H, Estim Creat Clear Calc 21.87, Est GFR (MDRD) Af Amer Not Reportable, Est GFR (MDRD) Non-Af 25 L, BUN/Creatinine Ratio 25.6 H, Glucose 101 H, Calcium 7.7 Micro: Microbiology 04/28/24 10:40 Sputum, Expectorated/Coughed Gram Stain - Final 04/28/24 10:40 Sputum, Expectorated/Coughed Respiratory Culture - Preliminary GNR Poss Pseudomonas sp 04/26/24 16:45 Mucosa - Nose SARS-CoV-2, Influenza & RSV (PCR) - Final Radiography Diagnostic Testing: Radiology Impression Echocardiogram 04/26/24 19:03 Interpretation Summary The estimated ejection fraction is 50-55 %. The left atrium is mildly enlarged. Mild (1+) mitral valve insufficiency. Trivial aortic valve insufficiency. Ordering Physician: Emilee oSng Referring Physician: FRANKY PETERSEN Performed By: Laverne Hayden RDCS Rhythm Strip Rhythm Strip: Sinus Rhythm Rate: 70 Ectopy: - (SVT noted) Physical Exam Const alert, oriented x3 and no apparent distress Constitutional Narrative: Sitting in bedside recliner. General Appearance: cooperative HEENT normocephalic, head/scalp atraumatic and moist oral mucous membranes Eyes PERRL, EOMs intact bilaterally and conjunctivae normal Neck supple General: trachea midline Chest inspection of chest normal Resp normal respiratory effort and no use of accessory muscles Auscultation: rales bilateral lower Cardio regular rate and regular rhythm Heart Sounds: murmur GI normal to inspection, nondistended, normoactive bowel sounds Extremity General Extremity: edema bilateral lower extremity; Negative for clubbing Skin no rashes or lesions noted Neuro CN's II-XII intact bilaterally, moves all extremities and no focal motor deficits Psych cooperative and affect normal Charges/Coding Visit Charges Inpatient E&M: 63738 Subs Hosp L2
[2024-04-30] MEDS: dilTIAZem CD 180 MG Capsule PO (08:00)
[2024-04-30] MEDS: PIRFENIDONE 801 MG PO ×3 (08:00→17:28)
--- NOTE | 2024-04-30 08:01 | PCM.PN.HOSP ---
Reason for Visit Reason for Visit: Shortness of breath Subjective Subjective No issues overnight. Patient is feeling better today. His was able to talk to his primary senior maintenance technician as well as his warehouse receiver and they do feel that this is not related to worsening pulmonary fibrosis but likely related to pulmonary hypertension and should respond to diuretics. He has been tolerating his Lasix drip thus far and renal function remained stable. No specific complaints today. Multiple family is at the bedside and questions were answered. Objective Data Objective Data Vital Signs: Vital Signs Temp Pulse Resp BP Pulse Ox O2 Del Method O2 Flow Rate 98.2 F 66 17 155/48 H 100 High Flow 10 04/30/24 03:33 04/30/24 05:08 04/30/24 03:33 04/30/24 05:08 04/30/24 03:33 04/30/24 03:33 04/30/24 03:33 FiO2 57 04/29/24 08:00 Oxygen Flow Rate (L/min) 10 Oxygen Delivery Method High Flow Weight: 66.134 kg Body Mass Index (BMI) 22.1 Intake & Output: Intake and Output for Last 24 Hours 04/28/24 04/29/24 04/30/24 23:59 23:59 23:59 Intake Total 490 / 740 500 / 500 Output Total 1175 / 1475 2125 / 2450 775 / 775 Balance -1175 / -1475 -1635 / -1710 -275 / -275 Lab / Micro Data 04/30/24 07:44 04/30/24 07:44 Micro: Microbiology 04/28/24 10:40 Sputum, Expectorated/Coughed Gram Stain - Final 04/28/24 10:40 Sputum, Expectorated/Coughed Respiratory Culture - Preliminary GNR Poss Pseudomonas sp 04/26/24 16:45 Mucosa - Nose SARS-CoV-2, Influenza & RSV (PCR) - Final Rhythm Strip Rhythm Strip: Sinus Rhythm Rate: 70 Ectopy: - (SVT noted) Physical Exam Const alert, oriented x3, no apparent distress and average body habitus; Negative for healthy appearing Constitutional Narrative: Thin, white male, s sitting up in a chair at the bedside on 10 L nasal cannula, no significant conversational dyspnea today, appears less fatigued and more interactive today, nontoxic HEENT head/scalp atraumatic and moist oral mucous membranes HEENT Narrative: Mallampati 2, no thrush Head and Scalp: normocephalic Resp normal respiratory effort, no retractions, no use of accessory muscles and clear to auscultation bilaterally Resp Narrative: Less tachypneic, diminished but clear today without crackles Auscultation: Negative for rales, rhonchi or wheezes Cardio regular rate, regular rhythm, S1 normal heart sound, S2 normal heart sound, no murmurs, no rub, no gallops and no clicks Cardio Narrative: Normal sinus rhythm today GI normal to inspection, nondistended, normoactive bowel sounds, soft to palpation and non-tender GI Narrative: Thin Extremity Extremity Narrative: Trace bilateral lower extremity pitting edema, no cyanosis or clubbing Neuro oriented x3, moves all extremities and no focal motor deficits Speech: speech normal Psych affect normal Psych Narrative: Affect is normalized, patient interacts appropriately and jokes Assessment & Plan Assessment/Plan (1) Acute respiratory failure with hypoxia: (2) Chronic kidney disease, stage IV (severe): PLAN: Plan Acute on chronic hypoxic respiratory failure -Multifactorial with pulmonary fibrosis and acute on chronic HFpEF -Patient does follow with pulmonary medicine at [facility] -Plan was for right heart cath next week and an appointment to see him on the or 06 May -Renal function remained stable we will continue Lasix drip -Patient is -3 L for the hospitalization -Continue I-S and Acapella -Titrate oxygen as needed -Has been weaned down to 10 L nasal cannula -Restart home pirfenidone at discharge -Case was discussed with his primary senior maintenance technician who feels that his pulmonary fibrosis looks to be stable however still highly suspect this is related to pulmonary hypertension and needs aggressive diuresis Paroxysmal atrial flutter/atrial fibrillation -Normal sinus rhythm today -Continue diltiazem -Cardiology is following and appreciate input CAD/essential hypertension/hyperlipidemia -status post coronary bypass graft surgery with a sequential BALES graft to the LAD diagonal vein graft to the OM branch of the circumflex and a vein graft to the PDA of the right coronary artery -Continue home Zetia and atorvastatin -Continue home aspirin -Continue transition from amlodipine to diltiazem -Continue home Coreg and increase dose to 6.25 mg from 3.125 -Continue home isosorbide mononitrate Chronic anemia secondary to renal disease -Hemoglobin is stable and trending up with diuresis currently 9.1 -Continue home iron -Likely related to renal disease BRAYDON on CKD stage IV/history of renal artery stenosis -Baseline creatinine is between 1.8 and 2.0 over the last 6 months -Renal function stable in last 24 hours at 2.5 despite aggressive diuresis with Lasix drip -Had been on ELEAZAR inhibitor and SLGT2 inhibitor but discontinued ELEAZAR inhibitor due to hyperkalemia -Previous renal artery stents -Nephrology is okay with continued Lasix drip at this time but agrees that the patient should likely be transferred to tertiary center however not desiring transfer at this time -Continue home bicarb Pulmonary fibrosis -Restart medicine at discharge -Primary senior maintenance technician has reviewed his images and feels like his pulmonary fibrosis is stable -Currently on 10 L nasal cannula will continue diuresis FRANCISCO JAVIER -Patient does not use CPAP regularly at home -Continue supplemental oxygen at night Depression/anxiety -Continue home sertraline DVT prophylaxis -Continue subcu heparin CODE STATUS -Full code as verified at the time of admission Charges/Coding Visit Charges Inpatient E&M: 52365 Subs Hosp L2
[2024-04-30 08:44] LABS: Hematocrit 28.2 % (40-54); Hemoglobin 9.1 g/dL (13.0-16.5); Mean Corp Hgb Conc 32.3 g/dL (32-36); Mean Corpuscular Hgb 32.5 pg (27.0-32.0); Mean Corpuscular Volume 100.7 fL (80-94); Mean Platelet Vol. 11.6 fl (6.2-12.0); Platelet Count 143 K/mm3 (150-450); RBC Distribution Width CV 15.9 % (11.6-14.6); RBC Distribution Width SD 58.3 fl (35.1-43.9); White Blood Count 7.8 K/mm3 (4.4-11.0)
[2024-04-30] MEDS: Carvedilol 6.25 MG Tablet PO ×2 (09:15→17:29)
[2024-04-30] MEDS: Piperacil/Tazobactam 3.375 GM in 0.9% Normal Saline (50mL MB+) 50 ML IV ×2 (10:56→21:32)
[2024-04-30] MEDS: 0.9% Normal Saline (100mL Bag) 100 ML 15 ML IV (10:56)
[2024-04-30] MEDS: Ferrous Sulfate 325 MG Tablet PO ×2 (12:28→17:28)
--- NOTE | 2024-04-30 12:43 | PN.RENAL_ITS ---
Subjective Subjective Looks better clinically. Subjectively breathing is better. Decent urine output. Creatinine about the same. Electrolytes pending. Objective Data Objective Data Vital Signs: Vital Signs Temp Pulse Resp BP Pulse Ox O2 Del Method O2 Flow Rate 98.8 F 80 19 H 140/58 H 98 High Flow 10 04/30/24 08:11 04/30/24 08:21 04/30/24 08:11 04/30/24 08:11 04/30/24 08:21 04/30/24 08:21 04/30/24 08:21 FiO2 57 04/29/24 08:00 Oxygen Flow Rate (L/min) 10 Oxygen Delivery Method High Flow Weight: 66.134 kg Body Mass Index (BMI) 22.1 Intake & Output: Intake and Output for Last 24 Hours 04/28/24 04/29/24 04/30/24 23:59 23:59 23:59 Intake Total 490 / 740 500 / 500 Output Total 1175 / 1475 2125 / 2450 775 / 775 Balance -1175 / -1475 -1635 / -1710 -275 / -275 Lab / Micro Data 04/30/24 07:44 04/30/24 07:44 Labs: Laboratory Results - last 24 hr 04/30/24 07:44: WBC 7.8, RBC 2.80 L, Hgb 9.1 L, Hct 28.2 L, MCV 100.7 H, MCH 32.5 H, MCHC 32.3, RDW Std Deviation 58.3 H, RDW Coeff of Lisa 15.9 H, Plt Count 143 L, MPV 11.6, BUN 63 H, Creatinine 2.5 H, Estim Creat Clear Calc 22.78, Est GFR (MDRD) Non-Af 26 L, BUN/Creatinine Ratio 25.3 H, Glucose 84 Micro: Microbiology 04/28/24 10:40 Sputum, Expectorated/Coughed Gram Stain - Final 04/28/24 10:40 Sputum, Expectorated/Coughed Respiratory Culture - Preliminary Pseudomonas aeruginosa 04/26/24 16:45 Mucosa - Nose SARS-CoV-2, Influenza & RSV (PCR) - Final Rhythm Strip Rhythm Strip: Sinus Rhythm Rate: 70 Ectopy: - (SVT noted) Physical Exam Narrative Alert awake oriented x 3 no obvious distress no pallor no icterus no JVD s1s2 no murmurs lungs clear abdomen soft no organomegaly no edema no cyanosis Assessment & Plan Assessment/Plan (1) Chronic kidney disease, stage IV (severe): PLAN: Acute renal failure CKD stage IV Baseline creatinine is around 1.8-2.0. Over the last 6 months, clinically worsened. Initially proteinuria has worsened. We started him on max dose ELEAZAR inhibitor, SGLT2 inhibitor. Proteinuria did improve. Unfortunately had persistent hyperkalemia requiring discontinuation of ELEAZAR inhibitor. History of renal artery stenosis, status post stenting. Repeat renal Dopplers are negative x 2. History of pulmonary fibrosis. Follows with pulmonology at [facility]. He was on antifibrotic agent. He had a CT chest with [facility] first week of April. Spoke to his rose grading supervisor today. As per him the fibrotic changes or not significantly different from before. Troponins were marginally elevated, likely demand ischemia as per primary. Echocardiogram with decent ejection fraction, moderate pulmonary hypertension. He was scheduled to have right heart cath with pulmonology next week. Admitted twice with shortness of breath. Does not have much peripheral edema. Pulmonary edema/effusions on CT chest. Has been on Lasix drip. Good urine output. Symptomatically better. Continue Lasix for 1 more day. Discussed with family, rose grading supervisor from [facility], hospitalist. Plan is to diurese him, once O2 requirements are better, discharged home on Bumex. He will have right heart cath as outpatient next week. (2) Pulmonary fibrosis:
[2024-04-30] MEDS: Furosemide 500 MG in Empty Viaflex 50 mL 1 EACH CONT INF (16:05)
[2024-04-30 18:25] LABS: Anion Gap 13 (5-15); BUN 63 mg/dL (4-19); BUN/Creat Ratio 25.2 RATIO (10-20); Carbon Dioxide 28.4 mmol/L (22.0-29.0); Chloride 102 mmol/L (96-108); EST Glomerular Filtration Rate 26 (>60); Estimated Creatinine Clearance 22.78 ml/min; Glucose 84 mg/dL (70-99); Potassium 4.7 mmol/L (3.3-5.1); Sodium Level 143 mmol/L (133-145)
[2024-04-30] MEDS: Doxazosin 4 MG Tablet 8 MG PO (21:32)
[2024-04-30] MEDS: Atorvastatin Calcium 80 MG Tablet PO (21:33)
[2024-04-30] MEDS: Aspirin 81 MG TAB.CHEW PO (21:33)
[2024-05-01] VITALS (12 sets, daily range): BP systolic 137–178; BP diastolic 47–87; PULSE 63–88; RESP 15–23; TEMP 36.6–37.3; O2SAT 92–97; BMI 22.1
[2024-05-01] MEDS: Heparin Injection (Vial) 5,000 UNIT/ML VIAL 5000 UNIT SC ×3 (05:20→20:58)
[2024-05-01] MEDS: Acetaminophen 325 MG Tablet 650 MG PO ×2 (05:20→15:56)
[2024-05-01] MEDS: hydrALAZINE 50 MG Tablet 100 MG PO ×3 (05:20→20:58)
--- NOTE | 2024-05-01 07:10 | PCM.PN.INT ---
Assessment & Plan Assessment/Plan (1) Acute respiratory failure with hypoxia: PLAN: Plan RECOMMENDATIONS: 1. Continue to wean supplemental oxygen to maintain saturations at or above 90%. 2. Continue Lasix infusion as tolerated by hemodynamics and renal function. Morning labs are pending. 3. Continue antimicrobials to complete 7 days of therapy. 4. Encourage incentive spirometer use and mobilize patient as tolerated. 5. Plan for right heart catheterization next week at [facility]. IMPRESSIONS: 1. Respiratory failure with hypoxemia Appears secondary to exacerbation of underlying heart failure with preserved ejection fraction in a patient with known coronary artery disease status post CABG, with associated pulmonary hypertension, which is likely multifactorial in etiology. The patient did present with an elevated BNP and troponin. Cardiology is currently following to assist with medical management. Recommend continuing ongoing diuresis as tolerated by hemodynamics and renal function. The patient is followed by an outside cigar tobacco rehandler at [facility]. There were tentative plans for the patient to undergo a right heart catheterization for workup of pulmonary hypertension next week. The patient also appears to have an underlying component of IPF, based on the fact that he is maintained on pirfenidone on an outpatient basis. Lastly, the patient did have a sputum culture, which was positive for pansensitive Pseudomonas aeruginosa, for which antimicrobials will be continued to complete a 7-day treatment course. 2. History of chronic kidney disease/coronary artery disease/anemia/obstructive sleep apnea/hypertension/depression Complicates care, management, recovery and prognosis. Continue home medications as indicated. This note was generated with [employer] dictation software. It may contain incorrect words, spelling, and punctuation that were not noted in checking the note before signing. Subjective Subjective The patient was seen and examined at the bedside this morning. Events from the last 24 hours have been reviewed. The patient is currently afebrile, hemodynamically stable and maintaining appropriate oxygen saturations on 8 L/min via nasal cannula. The patient is currently documented to be overall net -4.4 L for the hospitalization. He remains on a continuous Lasix infusion with morning labs pending. Objective Data Objective Data The patient's most recent lab work, culture data and imaging studies have all been personally reviewed. Surface echocardiogram demonstrated concentric LVH with an ejection fraction of 55% and a pulmonary artery systolic pressure of 50 mmHg. Sputum culture dated April 28 was positive for Pseudomonas aeruginosa. Vital Signs: Vital Signs Temp Pulse Resp BP Pulse Ox O2 Del Method O2 Flow Rate 97.9 F 78 16 178/74 H 93 High Flow 8 05/01/24 05:03 05/01/24 05:20 05/01/24 05:03 05/01/24 05:20 05/01/24 05:03 05/01/24 05:03 05/01/24 05:03 FiO2 57 04/29/24 08:00 Oxygen Flow Rate (L/min) 8 Oxygen Delivery Method High Flow Weight: 145 lb 11.2 oz Body Mass Index (BMI) 22.1 Intake & Output: Intake and Output for Last 24 Hours 04/29/24 04/30/24 05/01/24 23:59 23:59 23:59 Intake Total 490 / 740 1394.52 / 1394.52 50 / 50 Output Total 2125 / 2450 2595 / 2595 350 / 350 Balance -1635 / -1710 -1200.48 / -1200.48 -300 / -300 Lab / Micro Data Attestation: I reviewed the patient's lab results. 04/30/24 07:44 04/30/24 07:44 Labs: Laboratory Results - last 24 hr 04/30/24 07:44: WBC 7.8, RBC 2.80 L, Hgb 9.1 L, Hct 28.2 L, MCV 100.7 H, MCH 32.5 H, MCHC 32.3, RDW Std Deviation 58.3 H, RDW Coeff of Lisa 15.9 H, Plt Count 143 L, MPV 11.6, Sodium Cancelled 04/30/24 07:44: Sodium 143, Potassium Cancelled 04/30/24 07:44: Potassium 4.7, Chloride Cancelled, Chloride Direct 102, Carbon Dioxide Cancelled 04/30/24 07:44: Carbon Dioxide 28.4, Anion Gap Cancelled 04/30/24 07:44: Anion Gap 13, BUN Cancelled 04/30/24 07:44: BUN 63 H, Creatinine Cancelled 04/30/24 07:44: Creatinine 2.50 H, Estim Creat Clear Calc Cancelled 04/30/24 07:44: Estim Creat Clear Calc 22.78, Est GFR (MDRD) Af Amer Cancelled, Est GFR (MDRD) Non-Af Cancelled 04/30/24 07:44: Est GFR (MDRD) Non-Af 26 L, BUN/Creatinine Ratio Cancelled 04/30/24 07:44: BUN/Creatinine Ratio 25.2 H, Glucose Cancelled 04/30/24 07:44: Glucose 84, Calcium Cancelled 04/30/24 07:44: Calcium 8.0 Micro: Microbiology 04/28/24 10:40 Sputum, Expectorated/Coughed Gram Stain - Final 04/28/24 10:40 Sputum, Expectorated/Coughed Respiratory Culture - Final Pseudomonas aeruginosa 04/26/24 16:45 Mucosa - Nose SARS-CoV-2, Influenza & RSV (PCR) - Final Radiography Diagnostic Testing: Radiology Impression Echocardiogram 04/26/24 19:03 Interpretation Summary The estimated ejection fraction is 50-55 %. The left atrium is mildly enlarged. Mild (1+) mitral valve insufficiency. Trivial aortic valve insufficiency. Ordering Physician: Emilee Song Referring Physician: FRANKY PETERSEN Performed By: Laverne Hayden RDCS Rhythm Strip Rhythm Strip: Sinus Rhythm Rate: 70 Ectopy: - (SVT noted) Physical Exam Const alert, oriented x3 and no apparent distress General Appearance: cooperative HEENT normocephalic, head/scalp atraumatic and moist oral mucous membranes Eyes PERRL, EOMs intact bilaterally and conjunctivae normal Neck supple General: trachea midline Chest inspection of chest normal Resp normal respiratory effort and no use of accessory muscles Auscultation: Negative for rales, rhonchi or wheezes Cardio regular rate and regular rhythm Heart Sounds: murmur GI normal to inspection, nondistended, normoactive bowel sounds Extremity General Extremity: edema bilateral lower extremity; Negative for clubbing Skin no rashes or lesions noted Neuro CN's II-XII intact bilaterally, moves all extremities and no focal motor deficits Psych cooperative and affect normal Charges/Coding Visit Charges Inpatient E&M: 27708 Subs Hosp L2
--- NOTE | 2024-05-01 07:13 | PCM.PN.HOSP ---
Reason for Visit Reason for Visit: Shortness of breath Subjective Subjective We have been able to wean his oxygen to 8 L heated high flow nasal cannula. Blood pressure remains elevated so we will add clonidine. Patient is complaining of some knee pain that is red and swollen highly suspect gout. Uric acid is pending. Objective Data Objective Data Vital Signs: Vital Signs Temp Pulse Resp BP Pulse Ox O2 Del Method O2 Flow Rate 97.9 F 78 16 178/74 H 93 High Flow 8 05/01/24 05:03 05/01/24 05:20 05/01/24 05:03 05/01/24 05:20 05/01/24 05:03 05/01/24 05:03 05/01/24 05:03 FiO2 57 04/29/24 08:00 Oxygen Flow Rate (L/min) 8 Oxygen Delivery Method High Flow Weight: 66.088 kg Body Mass Index (BMI) 22.1 Intake & Output: Intake and Output for Last 24 Hours 04/29/24 04/30/24 05/01/24 23:59 23:59 23:59 Intake Total 490 / 740 1394.52 / 1394.52 50 / 50 Output Total 2125 / 2450 2595 / 2595 350 / 350 Balance -1635 / -1710 -1200.48 / -1200.48 -300 / -300 Lab / Micro Data 05/01/24 10:54 05/01/24 10:54 Labs: Laboratory Results - last 24 hr 04/30/24 07:44: WBC 7.8, RBC 2.80 L, Hgb 9.1 L, Hct 28.2 L, MCV 100.7 H, MCH 32.5 H, MCHC 32.3, RDW Std Deviation 58.3 H, RDW Coeff of Lisa 15.9 H, Plt Count 143 L, MPV 11.6, Sodium Cancelled 04/30/24 07:44: Sodium 143, Potassium Cancelled 04/30/24 07:44: Potassium 4.7, Chloride Cancelled, Chloride Direct 102, Carbon Dioxide Cancelled 04/30/24 07:44: Carbon Dioxide 28.4, Anion Gap Cancelled 04/30/24 07:44: Anion Gap 13, BUN Cancelled 04/30/24 07:44: BUN 63 H, Creatinine Cancelled 04/30/24 07:44: Creatinine 2.50 H, Estim Creat Clear Calc Cancelled 04/30/24 07:44: Estim Creat Clear Calc 22.78, Est GFR (MDRD) Af Amer Cancelled, Est GFR (MDRD) Non-Af Cancelled 04/30/24 07:44: Est GFR (MDRD) Non-Af 26 L, BUN/Creatinine Ratio Cancelled 04/30/24 07:44: BUN/Creatinine Ratio 25.2 H, Glucose Cancelled 04/30/24 07:44: Glucose 84, Calcium Cancelled 04/30/24 07:44: Calcium 8.0 Micro: Microbiology 04/28/24 10:40 Sputum, Expectorated/Coughed Gram Stain - Final 04/28/24 10:40 Sputum, Expectorated/Coughed Respiratory Culture - Final Pseudomonas aeruginosa 04/26/24 16:45 Mucosa - Nose SARS-CoV-2, Influenza & RSV (PCR) - Final Rhythm Strip Rhythm Strip: Sinus Rhythm Rate: 70 Ectopy: - (SVT noted) Physical Exam Const alert, oriented x3, no apparent distress and average body habitus; Negative for healthy appearing Constitutional Narrative: Thin, white male, sitting up in bed, at bedside, no significant conversational dyspnea today, appears less fatigued and more interactive today, nontoxic HEENT head/scalp atraumatic and moist oral mucous membranes HEENT Narrative: No thrush Head and Scalp: normocephalic Resp normal respiratory effort, no retractions, no use of accessory muscles and clear to auscultation bilaterally Resp Narrative: Few scattered crackles Auscultation: Negative for rales, rhonchi or wheezes Cardio regular rate, regular rhythm, S1 normal heart sound, S2 normal heart sound, no murmurs, no rub, no gallops and no clicks GI normal to inspection, nondistended, normoactive bowel sounds, soft to palpation and non-tender GI Narrative: Thin Extremity Extremity Narrative: Trace bilateral lower extremity pitting edema, no cyanosis or clubbing Neuro oriented x3, moves all extremities and no focal motor deficits Speech: speech normal Psych affect normal Psych Narrative: patient interacts appropriately and jokes Assessment & Plan Assessment/Plan (1) Acute respiratory failure with hypoxia: (2) Chronic kidney disease, stage IV (severe): PLAN: Plan Acute on chronic hypoxic respiratory failure -Multifactorial with pulmonary fibrosis and acute on chronic HFpEF -Patient does follow with pulmonary medicine at [facility] -Plan was for right heart cath next week and an appointment to see him on the or 06 May -Renal function remained stable we will continue Lasix drip -Patient is 4.4 L for the hospitalization -Continue I-S and Acapella -Titrate oxygen as needed -Has been weaned down to 8 L nasal cannula -Restart home pirfenidone at discharge -Case was discussed with his primary data support specialist who feels that his pulmonary fibrosis looks to be stable however still highly suspect this is related to pulmonary hypertension and needs aggressive diuresis Paroxysmal atrial flutter/atrial fibrillation -Remains in normal sinus rhythm -Continue diltiazem -Cardiology is following and appreciate input Knee pain -Suspect gout -Check x-ray -Uric acid pending -Start prednisone burst 40 daily x 5 days CAD/essential hypertension/hyperlipidemia -status post coronary bypass graft surgery with a sequential BALES graft to the LAD diagonal vein graft to the OM branch of the circumflex and a vein graft to the PDA of the right coronary artery -Continue home Zetia and atorvastatin -Continue home aspirin -Continue diltiazem -Continue Coreg at increased dose of 6.25 -Continue hydralazine -Continue home isosorbide mononitrate -Add clonidine patch Chronic anemia secondary to renal disease -Hemoglobin is stable and trending up with diuresis currently 9.1 -Continue home iron -Likely related to renal disease BRAYDON on CKD stage IV/history of renal artery stenosis -Baseline creatinine is between 1.8 and 2.0 over the last 6 months -Renal function stable in last 24 hours at 2.5 despite aggressive diuresis with Lasix drip -Had been on ELEAZAR inhibitor and SLGT2 inhibitor but discontinued ELEAZAR inhibitor due to hyperkalemia -Previous renal artery stents -Nephrology is okay with continued Lasix drip at this time but agrees that the patient should likely be transferred to tertiary center however not desiring transfer at this time -Continue home bicarb Pulmonary fibrosis -Restart medicine at discharge -Primary data support specialist has reviewed his images and feels like his pulmonary fibrosis is stable -Currently on 8 L nasal cannula will continue diuresis FRANCISCO JAVIER -Patient does not use CPAP regularly at home -Continue supplemental oxygen at night Depression/anxiety -Continue home sertraline DVT prophylaxis -Continue subcu heparin CODE STATUS -Full code as verified at the time of admission Charges/Coding Visit Charges Inpatient E&M: 65377 Subs Hosp L2
[2024-05-01] MEDS: Carvedilol 6.25 MG Tablet PO ×2 (09:06→17:29)
[2024-05-01] MEDS: dilTIAZem CD 180 MG Capsule PO (09:06)
[2024-05-01] MEDS: PIRFENIDONE 801 MG PO ×3 (09:07→17:29)
[2024-05-01] MEDS: Sertraline 50 MG Tablet PO (09:07)
[2024-05-01] MEDS: Piperacil/Tazobactam 3.375 GM in 0.9% Normal Saline (50mL MB+) 50 ML IV ×2 (09:37→20:59)
[2024-05-01 11:08] LABS: Hematocrit 28.9 % (40-54); Hemoglobin 9.2 g/dL (13.0-16.5); Mean Corp Hgb Conc 31.8 g/dL (32-36); Mean Corpuscular Hgb 31.6 pg (27.0-32.0); Mean Corpuscular Volume 99.3 fL (80-94); Mean Platelet Vol. 10.3 fl (6.2-12.0); Platelet Count 166 K/mm3 (150-450); RBC Distribution Width CV 15.8 % (11.6-14.6); RBC Distribution Width SD 57.4 fl (35.1-43.9); Red Blood Count 2.91 M/mm3 (4.6-6.2)
[2024-05-01] MEDS: Ferrous Sulfate 325 MG Tablet PO ×2 (11:49→17:30)
--- NOTE | 2024-05-01 12:00 | CASEMGMT ---
Addendum entered by Farhad Omalley 05/01/24 16:48: Dr Murphy aware of scheduled OP heart cath 05/05. Original Note: JEROD HART note: JEROD CM to room. Pt sitting up in chair, @ bedside. Per , pt is scheduled for OP heart cath @ [facility] 05/05 @ 2 PM to check for pulm htn. Pt also has appt Wed 05/06 w/pulm @ [facility], Dr Kimball. states pt has an Inogen, but only goes up to 6 L/M. Pt does not have portable O2 tanks to dc home on, if O2 liter flow is higher than 6 L/M. She states the Inogen, is pulsating, and states does not seem to deliver good quality O2. Pt may need portable tank from [place] to discharge home on, when medically ready. Sunny BSN JEROD CM
[2024-05-01 12:15] LABS: Anion Gap 14 (5-15); BUN 60 mg/dL (4-19); BUN/Creat Ratio 23.2 RATIO (10-20); Carbon Dioxide 27.2 mmol/L (22.0-29.0); Chloride 99 mmol/L (96-108); Creatinine, Serum 2.59 mg/dL (0.70-1.20); EST Glomerular Filtration Rate 25 (>60); Estimated Creatinine Clearance 21.97 ml/min; Glucose 120 mg/dL (70-99); Sodium Level 140 mmol/L (133-145)
[2024-05-01] MEDS: metOLazone 5 MG Tablet PO (13:48)
--- NOTE | 2024-05-01 15:12 | PN.RENAL_ITS ---
Subjective Subjective He says breathing is better. Still on 6 L of oxygen. Not much peripheral edema. Objective Data Objective Data Vital Signs: Vital Signs Temp Pulse Resp BP Pulse Ox O2 Del Method O2 Flow Rate 99.1 F 72 22 H 146/48 H 97 High Flow 8 05/01/24 12:00 05/01/24 13:48 05/01/24 14:00 05/01/24 13:48 05/01/24 14:00 05/01/24 14:00 05/01/24 14:00 FiO2 57 04/29/24 08:00 Oxygen Flow Rate (L/min) 8 Oxygen Delivery Method High Flow Weight: 66.088 kg Body Mass Index (BMI) 22.1 Intake & Output: Intake and Output for Last 24 Hours 04/29/24 04/30/24 05/01/24 23:59 23:59 23:59 Intake Total 490 / 740 1394.52 / 1394.52 100 / 100 Output Total 2125 / 2450 2595 / 2595 350 / 350 Balance -1635 / -1710 -1200.48 / -1200.48 -250 / -250 Lab / Micro Data 05/01/24 10:54 05/01/24 10:54 Labs: Laboratory Results - last 24 hr 04/30/24 07:44: Sodium Cancelled 04/30/24 07:44: Sodium 143, Potassium Cancelled 04/30/24 07:44: Potassium 4.7, Chloride Cancelled, Chloride Direct 102, Carbon Dioxide Cancelled 04/30/24 07:44: Carbon Dioxide 28.4, Anion Gap Cancelled 04/30/24 07:44: Anion Gap 13, BUN Cancelled 04/30/24 07:44: BUN 63 H, Creatinine Cancelled 04/30/24 07:44: Creatinine 2.50 H, Estim Creat Clear Calc Cancelled 04/30/24 07:44: Estim Creat Clear Calc 22.78, Est GFR (MDRD) Af Amer Cancelled, Est GFR (MDRD) Non-Af Cancelled 04/30/24 07:44: Est GFR (MDRD) Non-Af 26 L, BUN/Creatinine Ratio Cancelled 04/30/24 07:44: BUN/Creatinine Ratio 25.2 H, Glucose Cancelled 04/30/24 07:44: Glucose 84, Calcium Cancelled 04/30/24 07:44: Calcium 8.0 05/01/24 10:54: WBC 10.0, RBC 2.91 L, Hgb 9.2 L, Hct 28.9 L, MCV 99.3 H, MCH 31.6, MCHC 31.8 L, RDW Std Deviation 57.4 H, RDW Coeff of Lisa 15.8 H, Plt Count 166, MPV 10.3, Sodium Cancelled 05/01/24 10:54: Sodium 140, Potassium Cancelled 05/01/24 10:54: Potassium 4.0, Chloride Cancelled, Chloride Direct 99, Carbon Dioxide Cancelled 05/01/24 10:54: Carbon Dioxide 27.2, Anion Gap Cancelled 05/01/24 10:54: Anion Gap 14, BUN Cancelled 05/01/24 10:54: BUN 60 H, Creatinine Cancelled 05/01/24 10:54: Creatinine 2.59 H, Estim Creat Clear Calc Cancelled 05/01/24 10:54: Estim Creat Clear Calc 21.97, Est GFR (MDRD) Af Amer Cancelled, Est GFR (MDRD) Non-Af Cancelled 05/01/24 10:54: Est GFR (MDRD) Non-Af 25 L, BUN/Creatinine Ratio Cancelled 05/01/24 10:54: BUN/Creatinine Ratio 23.2 H, Glucose Cancelled 05/01/24 10:54: Glucose 120 H, Calcium Cancelled 05/01/24 10:54: Calcium 8.0 Micro: Microbiology 04/28/24 10:40 Sputum, Expectorated/Coughed Gram Stain - Final 04/28/24 10:40 Sputum, Expectorated/Coughed Respiratory Culture - Final Pseudomonas aeruginosa 04/26/24 16:45 Mucosa - Nose SARS-CoV-2, Influenza & RSV (PCR) - Final Rhythm Strip Rhythm Strip: Sinus Rhythm Rate: 70 Ectopy: - (SVT noted) Physical Exam Narrative Alert awake oriented x 3 no obvious distress no pallor no icterus no JVD s1s2 no murmurs lungs clear abdomen soft no organomegaly no edema no cyanosis Assessment & Plan Assessment/Plan (1) Chronic kidney disease, stage IV (severe): PLAN: Acute renal failure CKD stage IV Baseline creatinine is around 1.8-2.0. Over the last 6 months, clinically worsened. Initially proteinuria has worsened. We started him on max dose ELEAZAR inhibitor, SGLT2 inhibitor. Proteinuria did improve. Unfortunately had persistent hyperkalemia requiring discontinuation of ELEAZAR inhibitor. History of renal artery stenosis, status post stenting. Repeat renal Dopplers are negative x 2. History of pulmonary fibrosis. Follows with pulmonology at [facility]. He was on antifibrotic agent. He had a CT chest with [facility] first week of April. Spoke to his automatic lathe tender. As per him the fibrotic changes or not significantly different from before. Troponins were marginally elevated, likely demand ischemia as per cardiology. Echocardiogram with decent ejection fraction, moderate pulmonary hypertension. He was scheduled to have right heart cath with pulmonology next week. Admitted twice with shortness of breath. Does not have much peripheral edema. Pulmonary edema/effusions on CT chest. Has been on Lasix drip. Good urine output. Symptomatically better. However he is still on 6 L of nasal cannula. I suspect there is some component of pulmonary hypertension. Will give 1 dose of metolazone today. Electrolytes pending. Their goal is to get discharged and have right heart cath as outpatient next week. Otherwise he may have to be transferred. Discussed with family, automatic lathe tender from [facility], hospitalist. Plan is to diurese him, once O2 requirements are better, discharged home on Bumex. He will have right heart cath as outpatient next week. If he is still on high O2 requirements by next week, probably better to transfer to [facility] (2) Pulmonary fibrosis:
--- NOTE | 2024-05-01 16:45 | RAD_ITS ---
PROCEDURE: KNEE 4 OR MORE VIEWS REASON FOR EXAM: Pain TECHNIQUE: 5 view(s) of the right knee COMPARISON: None. FINDINGS: No fracture. No suspicious bone lesion. Moderate tricompartmental degenerative changes Normal alignment. No effusion. Vascular calcifications. RAD/Knee 4 or More Views IMPRESSION: Moderate tricompartmental degenerative changes with no acute osseous abnormalit y. Reading Location: [facility]
[2024-05-01] MEDS: predniSONE 20 MG Tablet 40 MG PO (17:28)
[2024-05-01] MEDS: Furosemide 500 MG in Empty Viaflex 50 mL 1 EACH CONT INF (19:57)
[2024-05-01 20:40] LABS: Uric Acid 10.7 mg/dL (3.5-7.2)
[2024-05-01] MEDS: Doxazosin 4 MG Tablet 8 MG PO (20:58)
[2024-05-01] MEDS: Aspirin 81 MG TAB.CHEW PO (20:58)
[2024-05-01] MEDS: Atorvastatin Calcium 80 MG Tablet PO (20:59)
[2024-05-01] MEDS: Ezetimibe 10 MG Tablet PO (20:59)
[2024-05-02] VITALS (10 sets, daily range): BP systolic 140–162; BP diastolic 43–79; PULSE 56–68; RESP 16–22; TEMP 36.6–37.1; O2SAT 88–96; BMI 20.4
[2024-05-02] MEDS: hydrALAZINE 50 MG Tablet 100 MG PO ×3 (05:14→21:19)
[2024-05-02] MEDS: Heparin Injection (Vial) 5,000 UNIT/ML VIAL 5000 UNIT SC ×3 (05:14→21:24)
[2024-05-02 05:35] LABS: Absolute Lymphocyte Count 0.43 X10^3/uL (0.83-4.51); Basophil# 0.01 X10^3/uL; Basophil% 0.1 % (0-1); Hematocrit 29.1 % (40-54); Hemoglobin 9.3 g/dL (13.0-16.5); Lymphocyte # 0.43 X10^3/ul (0.83-4.51); Lymphocyte % 5.6 % (19-41); Mean Corpuscular Hgb 31.5 pg (27.0-32.0); Mean Corpuscular Volume 98.6 fL (80-94); Mean Platelet Vol. 10.4 fl (6.2-12.0); Monocyte# 0.14 X10^3/uL; Monocyte% 1.8 % (0-10); NRBC Flagged by Analyzer 0 % (0-5); Neutrophil # 7.01 X10^3/uL (2.7-7.7); POSITIVE DIFFERENTIAL YES; Platelet Count 184 K/mm3 (150-450); RBC Distribution Width CV 15.6 % (11.6-14.6); RBC Distribution Width SD 55.6 fl (35.1-43.9); Red Blood Count 2.95 M/mm3 (4.6-6.2); White Blood Count 7.6 K/mm3 (4.4-11.0)
[2024-05-02 05:58] LABS: Anion Gap 15 (5-15); BUN 65 mg/dL (4-19); BUN/Creat Ratio 23.5 RATIO (10-20); Calcium 8.2 mg/dL (7.6-11.0); Carbon Dioxide 28.1 mmol/L (22.0-29.0); Chloride 98 mmol/L (96-108); Creatinine, Serum 2.77 mg/dL (0.70-1.20); EST Glomerular Filtration Rate 23 (>60); Estimated Creatinine Clearance 18.97 ml/min; Glucose 153 mg/dL (70-99); Magnesium 1.9 mg/dL (1.5-2.2); Phosphorus 5.5 mg/dL (2.7-4.5); Potassium 4.2 mmol/L (3.3-5.1); Sodium Level 141 mmol/L (133-145)
[2024-05-02] MEDS: Carvedilol 6.25 MG Tablet PO ×2 (08:25→17:26)
[2024-05-02] MEDS: PIRFENIDONE 801 MG PO ×3 (08:26→17:26)
[2024-05-02] MEDS: Sertraline 50 MG Tablet PO (08:27)
[2024-05-02] MEDS: dilTIAZem CD 180 MG Capsule PO (08:28)
[2024-05-02] MEDS: predniSONE 20 MG Tablet 40 MG PO (08:30)
[2024-05-02] MEDS: Piperacil/Tazobactam 3.375 GM in 0.9% Normal Saline (50mL MB+) 50 ML IV ×2 (08:32→21:25)
--- NOTE | 2024-05-02 12:12 | PN.HOSP_ITS ---
Reason for Visit Reason for Visit: Shortness of breath Subjective Subjective Breathing is much better. Patient has been weaned to 3 to 4 L nasal cannula at rest. States he is feeling well. Renal function is starting to bump slightly so we will back off on his Lasix drip to 10 mg from 20 mg. Hopeful for discharge in the next 24 to 48 hours. Patient has no complaints at this time. Objective Data Objective Data Vital Signs: Vital Signs Temp Pulse Resp BP Pulse Ox O2 Del Method O2 Flow Rate 98.1 F 62 19 H 161/79 H 88 High Flow 3 05/02/24 08:00 05/02/24 08:00 05/02/24 08:00 05/02/24 08:00 05/02/24 09:22 05/02/24 08:00 05/02/24 09:22 FiO2 57 04/29/24 08:00 Oxygen Flow Rate (L/min) 3 Oxygen Delivery Method High Flow Weight: 61.008 kg Body Mass Index (BMI) 20.4 Intake & Output: Intake and Output for Last 24 Hours 04/30/24 05/01/24 05/02/24 23:59 23:59 23:59 Intake Total 1394.52 / 1394.52 1176.15 / 1176.15 290 / 290 Output Total 2595 / 2595 1500 / 1500 600 / 600 Balance -1200.48 / -1200.48 -323.85 / -323.85 -310 / -310 Lab / Micro Data 05/02/24 04:45 05/02/24 04:45 Labs: Laboratory Results - last 24 hr 05/01/24 10:54: Sodium 140, Potassium 4.0, Chloride Direct 99, Carbon Dioxide 27.2, Anion Gap 14, BUN 60 H, Creatinine 2.59 H, Estim Creat Clear Calc 21.97, E st GFR (MDRD) Non-Af 25 L, BUN/Creatinine Ratio 23.2 H, Glucose 120 H, Uric Acid 10.7 H, Calcium 8.0 05/02/24 04:45: WBC 7.6, RBC 2.95 L, Hgb 9.3 L, Hct 29.1 L, MCV 98.6 H, MCH 31.5, MCHC 32.0, RDW Std Deviation 55.6 H, RDW Coeff of Lisa 15.6 H, Plt Count 184, MPV 10.4, Immature Gran % (Auto) 0.500, Neut % (Auto) 92.0 H, Lymph % (Auto) 5.6 L, Johnson % (Auto) 1.8, Eos % (Auto) 0.0, Baso % (Auto) 0.1, Absolute Neuts (auto) 7.0, Absolute Lymphs (auto) 0.43 L, Nucleated RBC % 0, Sodium 141, Potassium 4.2, Chloride Direct 98, Carbon Dioxide 28.1, Anion Gap 15, BUN 65 H, Creatinine 2.77 H, Estim Creat Clear Calc 18.97, Est GFR (MDRD) Non-Af 23 L, B UN/Creatinine Ratio 23.5 H, Glucose 153 H, Calcium 8.2, Phosphorus 5.5 H, Magnesium 1.9 Micro: Microbiology 04/28/24 10:40 Sputum, Expectorated/Coughed Gram Stain - Final 04/28/24 10:40 Sputum, Expectorated/Coughed Respiratory Culture - Final Pseudomonas aeruginosa 04/26/24 16:45 Mucosa - Nose SARS-CoV-2, Influenza & RSV (PCR) - Final Radiography Diagnostic Testing: Radiology Impression Knee X-Ray 05/01/24 16:45 IMPRESSION: Moderate tricompartmental degenerative changes with no acute osseous abnormality. [facility] Rhythm Strip Rhythm Strip: Sinus Rhythm Rate: 70 Ectopy: - (SVT noted) Physical Exam Const alert, oriented x3, no apparent distress and average body habitus; Negative for healthy appearing Constitutional Narrative: Thin, white male, sitting up in a chair at the bedside, appears comfortable, nontoxic, down to 3 L nasal cannula, no dyspnea with conversation, watching television HEENT head/scalp atraumatic and moist oral mucous membranes HEENT Narrative: Mallampati 1-2, no thrush Head and Scalp: normocephalic Resp normal respiratory effort, no retractions, no use of accessory muscles and clear to auscultation bilaterally Resp Narrative: Diminished but clear Auscultation: Negative for rales, rhonchi or wheezes Cardio regular rate, regular rhythm, S1 normal heart sound, S2 normal heart sound, no murmurs, no rub, no gallops and no clicks GI normal to inspection, nondistended, normoactive bowel sounds, soft to palpation and non-tender GI Narrative: Thin Extremity Extremity Narrative: Trace bilateral lower extremity pitting edema, no cyanosis or clubbing Neuro oriented x3, moves all extremities and no focal motor deficits Speech: speech normal Psych affect normal Psych Narrative: patient interacts appropriately and jokes Assessment & Plan Assessment/Plan (1) Acute respiratory failure with hypoxia: (2) Chronic kidney disease, stage IV (severe): PLAN: Plan Acute on chronic hypoxic respiratory failure -Multifactorial with pulmonary fibrosis, pseudomonal pneumonia and acute on chronic HFpEF -Patient does follow with pulmonary medicine at [facility] -Plan was for right heart cath next week and an appointment to see him on the or 06 May -Renal function is starting to climb so we will decrease Lasix drip from 20 to 10/h with intention to transition to oral Lasix tomorrow -Patient is 4.8 L for the hospitalization -Continue I-S and Acapella -Titrate oxygen as needed -Has been weaned down to 3-4 L nasal cannula -Restart home pirfenidone at discharge -Case was discussed with his primary temperature control inspector who feels that his pulmonary fibrosis looks to be stable however still highly suspect this is related to pulmonary hypertension and needs aggressive diuresis -Possible discharge tomorrow Pseudomonas pneumonia -Continue antibiotics -Day 3 of 7 Paroxysmal atrial flutter/atrial fibrillation -Remains in normal sinus rhythm -Continue diltiazem -Cardiology is following and appreciate input Right knee pain secondary to gout with moderate tricompartmental degenerative joint disease -Uric acid was markedly elevated -Continue prednisone burst 40 daily x 5 days--> day 2 of 5 CAD/essential hypertension/hyperlipidemia -status post coronary bypass graft surgery with a sequential BALES graft to the LAD diagonal vein graft to the OM branch of the circumflex and a vein graft to the PDA of the right coronary artery -Continue home Zetia and atorvastatin -Continue home aspirin -Continue diltiazem -Continue Coreg at increased dose of 6.25 -Continue hydralazine -Continue home isosorbide mononitrate -Continue clonidine patch Chronic anemia secondary to renal disease -Hemoglobin is stable and trending up with diuresis currently 9.1 -Continue home iron -Likely related to renal disease BRAYDON on CKD stage IV/history of renal artery stenosis -Baseline creatinine is between 1.8 and 2.0 over the last 6 months -Renal function stable in last 24 hours at 2.5 despite aggressive diuresis with Lasix drip -Had been on ELEAZAR inhibitor and SLGT2 inhibitor but discontinued ELEAZAR inhibitor due to hyperkalemia -Previous renal artery stents -Nephrology is okay with continued Lasix drip at this time but agrees that the patient should likely be transferred to tertiary center however not desiring transfer at this time -Continue home bicarb Pulmonary fibrosis -Restart medicine at discharge -Primary temperature control inspector has reviewed his images and feels like his pulmonary fibrosis is stable -Currently on 3-4 L nasal cannula will continue diuresis FRANCISCO JAVIER -Patient does not use CPAP regularly at home -Continue supplemental oxygen at night Depression/anxiety -Continue home sertraline DVT prophylaxis -Continue subcu heparin CODE STATUS -Full code as verified at the time of admission Charges/Coding Visit Charges Inpatient E&M: 57508 Subs Hosp L2
[2024-05-02] MEDS: Ferrous Sulfate 325 MG Tablet PO ×2 (12:51→17:29)
--- NOTE | 2024-05-02 14:03 | PN.CC_ITS ---
Objective Data Objective Data Vital Signs: Vital Signs Last response 3 Temperature 36.7 C 05/02/24 08:00 Temperature Source Temporal 05/02/24 08:00 Pulse Rate 68 05/02/24 12:51 Pulse Strength Weak (1+) 05/02/24 10:00 Respiratory Rate 19 H 05/02/24 08:00 Respiratory Effort Normal, Non-Labored 05/01/24 14:00 Respiratory Depth Normal 05/01/24 14:00 Respiratory Pattern Normal 05/01/24 14:00 Blood Pressure 161/79 H 05/02/24 08:00 Blood Pressure Mean 106 05/02/24 08:00 Blood Pressure Source Monitor 05/02/24 08:00 Blood Pressure Position Semi-Fowlers 05/02/24 08:00 Blood Pressure Location Left Arm 05/02/24 08:00 Pulse Ox 88 05/02/24 09:22 Oxygen Delivery Method High Flow 05/02/24 08:00 Oxygen Flow Rate (L/min) 3 05/02/24 09:22 Fraction of Inspired Oxygen (FIO2) 57 04/29/24 08:00 I&O: I&O Last 24 Hours 3 05/01/24 05/02/24 05/02/24 23:59 11:59 23:59 Intake Total 1126.15 / 1176.15 50 / 340 290 / 340 Output Total 1150 / 1500 600 / 600 Balance -23.85 / -323.85 -550 / -260 290 / -260 I&O: Total Stay 3 04/26/24 15:53 thru 05/02/24 12:56 Intake Total 4600.67 Output Total 9345 Balance -4744.33 Current Meds Ordered / Administered: Current meds ordered / Administered 3 Generic Name Dose Route Start Last Admin Trade Name Freq PRN Reason Stop Dose Admin Acetaminophen 650 mg 04/26/24 19:03 05/01/24 15:56 Acetaminophen 325 Mg Tablet PO 650 mg Q6H PRN PRN Administration Pain 1-10 Or Fever >100.7 Albuterol Sulfate 2.5 mg 04/26/24 19:03 Albuterol 2.5 Mg/3 Ml Vial.Neb. INHALATION Q2H PRN PRN SOB &/OR WHEEZING Aspirin 81 mg 04/26/24 22:00 05/01/24 20:58 Aspirin 81 Mg Tab.Chew PO 81 mg QHS TRINI Administration Atorvastatin Calcium 80 mg 04/26/24 22:00 05/01/24 20:59 Atorvastatin Calcium 80 Mg Tablet PO 80 mg QHS [facility] Administration Carvedilol 6.25 mg 04/29/24 08:00 05/02/24 08:25 Carvedilol 6.25 Mg Tablet PO 6.25 mg BIDCM TRINI Administration Protocol Clonidine HCl 0.3 mg 05/01/24 07:15 05/01/24 09:10 Clonidine Hcl 0.3 Mg Patch TD 0.3 mg Q7D TRINI Administration Diltiazem HCl 180 mg 04/28/24 10:00 05/02/24 08:28 Diltiazem Cd 180 Mg Capsule PO 180 mg DAILY [facility] Administration Protocol Doxazosin Mesylate 8 mg 04/26/24 22:00 05/01/24 20:58 Doxazosin 4 Mg Tablet PO 8 mg QHS TRINI Administration Ezetimibe 10 mg 04/26/24 22:00 05/01/24 20:59 Ezetimibe 10 Mg Tablet PO 10 mg QHS TRINI Administration Ferrous Sulfate 325 mg 04/27/24 12:00 05/02/24 12:51 Ferrous Sulfate 325 Mg Tablet PO 325 mg 1200,1700 TRINI Administration Heparin Sodium (Porcine) 5,000 unit 04/26/24 22:00 05/02/24 12:52 Heparin Injection (Vial) 5,000 Unit/Ml Vial SC 5,000 unit Q8 TRINI Administration Hydralazine HCl 100 mg 04/26/24 22:00 05/02/24 12:51 Hydralazine 50 Mg Tablet PO 100 mg TID TRINI Administration Sodium Chloride 100 mls @ 15 mls/hr 04/26/24 19:13 04/30/24 19:16 IV Infused .Q6H40M PRN Infusion Saline Flush Sodium Chloride 100 mls @ 15 mls/hr 04/26/24 19:13 IV .Q6H40M PRN Additional IVPB Infusion Furosemide 500 mg/ N/A 50 mls @ 1 mls/hr 04/29/24 10:45 05/01/24 19:57 CONT INF 20 mg/hr .Q50H TRINI 2 mls/hr Administration 10 MG/HR Piperacillin Sod/Tazobactam 50 mls @ 12.5 mls/hr 04/30/24 10:00 05/02/24 12:56 Sod 3.375 gm/ Sodium Chloride IV Infused Q12 TRINI Infusion Isosorbide Mononitrate 120 mg 04/27/24 10:00 05/02/24 08:26 Isosorbide Mononitrate 120 Mg Tablet PO 120 mg QAM TRINI Administration Protocol Melatonin 3 mg 04/26/24 19:03 Melatonin 3 Mg Tablet PO QHS PRN PRN INSOMNIA Ondansetron HCl 4 mg 04/26/24 19:03 Ondansetron 4 Mg/2 Ml Vial IV Q8H PRN PRN NAUSEA/VOMITING Prednisone 40 mg 05/02/24 08:00 05/02/24 08:30 Prednisone 20 Mg Tablet PO 05/06/24 08:01 40 mg BREAKFAST TRINI Administration Senna/Docusate Sodium 2 tablet 04/26/24 19:03 Senna/Docusate Sodium 1 Tablet PO BID PRN PRN Constipation Sertraline HCl 50 mg 04/27/24 10:00 05/02/24 08:27 Sertraline 50 Mg Tablet PO 50 mg DAILY TRINI Administration Sodium Chloride 10 - 40 ml 04/26/24 19:13 04/29/24 11:24 0.9% Saline Lock 10 Ml Syringe IV 10 ml UD PRN Administration SALINE FLUSH Lab / Micro Data 05/02/24 04:45 05/02/24 04:45 Labs: Laboratory Results - last 24 hr 05/01/24 10:54: Uric Acid 10.7 H 05/02/24 04:45: WBC 7.6, RBC 2.95 L, Hgb 9.3 L, Hct 29.1 L, MCV 98.6 H, MCH 31.5, MCHC 32.0, RDW Std Deviation 55.6 H, RDW Coeff of Lisa 15.6 H, Plt Count 184, MPV 10.4, Immature Gran % (Auto) 0.500, Neut % (Auto) 92.0 H, Lymph % (Auto) 5.6 L, [place] % (Auto) 1.8, Eos % (Auto) 0.0, Baso % (Auto) 0.1, Absolute Neuts (auto) 7.0, Absolute Lymphs (auto) 0.43 L, Nucleated RBC % 0, Sodium 141, Potassium 4.2, Chloride Direct 98, Carbon Dioxide 28.1, Anion Gap 15, BUN 65 H, Creatinine 2.77 H, Estim Creat Clear Calc 18.97, Est GFR (MDRD) Non-Af 23 L, B UN/Creatinine Ratio 23.5 H, Glucose 153 H, Calcium 8.2, Phosphorus 5.5 H, Magnesium 1.9 Rhythm Strip Rhythm Strip: Sinus Rhythm Rate: 70 Ectopy: - (SVT noted) Imaging Radiology Impression Knee X-Ray 05/01/24 16:45 IMPRESSION: Moderate tricompartmental degenerative changes with no acute osseous abnormality. Reading Location: [facility] Assessment and Plan . Assessment and plan: HPI Patient seen and examined Chart and data reviewed Breathing 3 LPM O2 comfortably at rest Brisk diuresis w/ loop diuretics Imaging reviewed Renal function poor, but stable EXAM GEN NAD VS as above HEENT O2 N/C COR RRR CHEST crackles ABD soft EXT minimal edema NATALY NF ASSESSMENT 1. Dyspnea / hypoxemia 2. Suspected IPF 3. CHF / CABG / PAH -supplemental O2 as needed -loop diuretics as tolerated -VTE ppx -defer steroids and ABX to IM Available as needed The entirety of this encounter was done via Telemedicine
[2024-05-02] MEDS: Aspirin 81 MG TAB.CHEW PO (21:19)
[2024-05-02] MEDS: Atorvastatin Calcium 80 MG Tablet PO (21:20)
[2024-05-02] MEDS: Doxazosin 4 MG Tablet 8 MG PO (21:20)
[2024-05-02] MEDS: Ezetimibe 10 MG Tablet PO (21:20)
[2024-05-02] MEDS: Acetaminophen 325 MG Tablet 650 MG PO (21:24)
[2024-05-02] MEDS: Furosemide 100 MG/10 ML Vial 60 MG IV (21:24)
[2024-05-03] MEDS: 0.9% Saline Lock 10 ML Syringe IV ×2 (04:49→10:22)
[2024-05-03 04:50] VITALS: BP 128/78; PULSE 67
[2024-05-03] MEDS: hydrALAZINE 50 MG Tablet 100 MG PO (04:50)
[2024-05-03] MEDS: Furosemide 100 MG/10 ML Vial 60 MG IV (04:50)
[2024-05-03] MEDS: Heparin Injection (Vial) 5,000 UNIT/ML VIAL 5000 UNIT SC (04:50)
[2024-05-03 04:55] LABS: Absolute Lymphocyte Count 1.22 X10^3/uL (0.83-4.51); Absolute Neutrophil Count 7.7 X10^3/uL (2.0-7.7); Basophil# 0.01 X10^3/uL; Basophil% 0.1 % (0-1); Eosinophil# 0.02 X10^3/uL; Eosinophils% 0.2 % (0-5); Hematocrit 29.7 % (40-54); Hemoglobin 9.5 g/dL (13.0-16.5); Lymphocyte # 1.22 X10^3/ul (0.83-4.51); Lymphocyte % 12.8 % (19-41); Mean Corpuscular Hgb 31.3 pg (27.0-32.0); Mean Corpuscular Volume 97.7 fL (80-94); Mean Platelet Vol. 10.2 fl (6.2-12.0); Monocyte% 5.2 % (0-10); NRBC Flagged by Analyzer 0 % (0-5); Neutrophil # 7.74 X10^3/uL (2.7-7.7); Neutrophil % 81.2 % (47-70); Platelet Count 189 K/mm3 (150-450); RBC Distribution Width CV 15.4 % (11.6-14.6); RBC Distribution Width SD 55.5 fl (35.1-43.9); Red Blood Count 3.04 M/mm3 (4.6-6.2); White Blood Count 9.5 K/mm3 (4.4-11.0)
[2024-05-03 05:04] VITALS: BMI 20.5
[2024-05-03 05:30] LABS: Magnesium 1.9 mg/dL (1.5-2.2)
[2024-05-03 06:00] LABS: Anion Gap 16 (5-15); BUN 75 mg/dL (4-19); Calcium 7.8 mg/dL (7.6-11.0); Carbon Dioxide 26.9 mmol/L (22.0-29.0); Chloride 96 mmol/L (96-108); Creatinine, Serum 3.12 mg/dL (0.70-1.20); EST Glomerular Filtration Rate 20 (>60); Estimated Creatinine Clearance 16.86 ml/min (50-250); Glucose 136 mg/dL (70-99); Potassium 3.9 mmol/L (3.3-5.1); Sodium Level 139 mmol/L (133-145)
[2024-05-03] MEDS: PIRFENIDONE 801 MG PO ×2 (08:09→10:23)
[2024-05-03] MEDS: predniSONE 20 MG Tablet 40 MG PO (08:09)
[2024-05-03] MEDS: Carvedilol 6.25 MG Tablet PO (08:09)
[2024-05-03 08:10] VITALS: BP 141/51; PULSE 64; RESP 14; TEMP 36.6; O2SAT 100
[2024-05-03 08:14] VITALS: O2SAT 90; O2SAT 99
[2024-05-03 09:38] VITALS: O2SAT 90; O2SAT 99
[2024-05-03] MEDS: Piperacil/Tazobactam 3.375 GM in 0.9% Normal Saline (50mL MB+) 50 ML IV (10:22)
[2024-05-03] MEDS: dilTIAZem CD 180 MG Capsule PO (10:22)
[2024-05-03] MEDS: Ferrous Sulfate 325 MG Tablet PO (10:23)
[2024-05-03] MEDS: Sertraline 50 MG Tablet PO (10:23)
--- NOTE | 2024-05-03 11:26 | DS.PCM_ITS ---
Providers Date of Admission: 04/26/24 Date of Discharge: 05/03/24 Primary Care Physician: Dr. Virginie Lockhart MD Consultations 04/27/24 08:00 Consult: Vehicle Detailer / Pulmonary Medicine Routine Consulting Provider: Intensivists/Pulmonary Med Reason for Consult: respiratory failure, requiring ICU admission, still on airvo EMERGENT Consult: No Notified: Yes Date Notified: 04/27/24 Time Notified: 08:13 Method of Notification: Verbal 04/27/24 11:19 Consult: Cardiology Routine Consulting Provider: Lazaro Garcia Reason for Consult: ppulm rec cards, 2ndHF exac this month, significant decomp, elevated tro EMERGENT Consult: No Notified: Yes Date Notified: 04/27/24 Time Notified: 11:36 Method of Notification: Text 04/28/24 13:01 Consult: Nephrology Routine Consulting Provider: Gris Leal Reason for Consult: ckd, anemia, HF being IV diuresed, resp failure in ICU, known pt EMERGENT Consult: No Notified: Yes Date Notified: 04/28/24 Time Notified: 13:01 Method of Notification: Answering Service Reason For Visit: RESPIRATORY FAILURE 2/2 CHF Diagnosis Discharge Diagnosis (1) Acute respiratory failure with hypoxia: Status: Acute Code(s): J96.01 - Acute respiratory failure with hypoxia (2) Chronic kidney disease, stage IV (severe): Status: Chronic Code(s): N18.4 - Chronic kidney disease, stage 4 (severe) Medications at Discharge Home Medications aspirin 81 mg chewable tablet 81 mg PO QHS Heart 08/03/19 nitroglycerin 0.4 mg sublingual tablet 0.4 mg sublingual PRN PRN Angina #25 tabs 08/14/22 ferrous sulfate 325 mg (65 mg iron) tablet (Feosol) 325 mg PO BID supplement 01/16/23 ezetimibe 10 mg tablet 10 mg PO QHS cholesterol #90 tabs 09/02/23 hydralazine 100 mg tablet 100 mg PO TID #270 tabs 09/25/23 pirfenidone 267 mg tablet 801 mg PO TID Pulmonary fibrosis 09/25/23 carvedilol 3.125 mg tablet 3.125 mg PO BID blood pressure #60 tabs 10/17/23 sertraline 50 mg tablet 50 mg PO DAILY mental health #90 tabs 11/05/23 atorvastatin 80 mg tablet 80 mg PO QHS for cholesterol #90 TABLETS 12/23/23 doxazosin 8 mg tablet 8 mg PO QHS #90 tabs 12/25/23 amlodipine 10 mg tablet 10 mg PO DAILY blood pressure #90 tabs 03/03/24 rysqdmgyvnwq-nyh-ljoor acid-vit K-lycop 400 mcg-20 mcg-370 mcg tablet (Men's 50 Plus Multivitamin) 1 tab PO QDAY VITAMIN 03/23/24 isosorbide mononitrate 120 mg tablet,extended release 24 hr 120 mg PO QAM this is a dose increase #90 tabs 04/07/24 sodium bicarbonate 650 mg tablet 1,300 mg PO TID kidneys 04/12/24 bumetanide 1 mg tablet 1 mg PO BID CHF 04/23/24 Held on 05/03/24. Instructions: Resume on 05/06/01. clonidine 0.3 mg/24 hr weekly transdermal patch 0.3 mg transdermal Q7D #4 ea 05/03/24 diltiazem HCl 180 mg capsule,extended release 24 hr 180 mg PO DAILY #30 caps 05/03/24 levofloxacin 250 mg tablet 250 mg PO DAILY #5 tabs 05/03/24 prednisone 10 mg tablet 10 mg PO DAILY #2 tabs 05/03/24 Hospital Course Operations None Procedures 2-D Echocardiogram, EKG and - (CTA chest/knee x-ray) Summary of Care Provided Minutes Spent on Discharge: 45 Hospital Course: Mr. Zimmer is a 78-year-old male with a known history of pulmonary fibrosis on 3 L of oxygen at rest and 6 L with exertion who follows at the [facility] with pulmonary fibrosis specialist who presents emergency department at [facility] on 04/26/2024 with a chief complaint of shortness of breath. Patient reported that he had had a worsening cough, shortness of breath and some lower extremity edema along with nausea and vomiting for about 24 hours prior to presentation. He had a recent admission here from 10/03 to 01/21/2025 for acute on chronic respiratory failure secondary to acute on chronic HFpEF. Upon arrival to emergency department the patient was tachypneic with a respiratory rate in the 30s and hypoxic on his 6 L at an SpO2 70%. His temperature was 97.5, heart rate 80, blood pressure was 135/44. CBC on admission showed a white count of 16.6, chronic stable anemia with a hemoglobin of 9.6 and left shift with an 81.9% neutrophilia. An ABG was obtained showed a pH of 7.4 with a pCO2 of 40.7 and a pO2 of 66 on BiPAP. Chemistry panel showed a serum creatinine slightly elevated from baseline at 2.74 (baseline 2.3-2.5) his electrolytes are otherwise unremarkable. Glucose was 268. Troponin was 359 and they were cycled with slow trend down. Appears that his troponins are fairly consistently elevated. His BNP was 2775.8. CT of the chest was performed and negative for PE but did showed mild to moderate bilateral pleural effusions with adjacent bibasilar atelectasis, subpleural pulmonary fibrotic changes with borderline bronchiectasis and mild cardiomegaly and coronary artery disease. He was admitted to the telemetry floor and placed on IV Lasix bolus and a repeat echocardiogram was ordered. Cardiology and pulmonary medicine were consulted. Echocardiogram was done on 04/27/2024 and showed an EF of 50 to 55% with mild left atrial enlargement, mild mitral valve insufficiency, trivial aortic valve insufficiency and right ventricular systolic pressures were 50 mmHg. Patient did inform us that he has a right heart catheterization coming up on 05/06/2024 at [facility] which was ordered by his document improvement specialist. We did uptitrate his oxygen during his hospital course to a max of 13 L heated high flow nasal cannula. He was transition to Lasix drip for aggressive diuresis. Nephrology was following due to his CKD during his hospital stay and they agreed with ongoing aggressive diuresis. We were able to talk to his vice president quality at [facility] who feels that his pulmonary fibrosis is stable and this is likely related to volume overload. We were able to to obtain a sputum culture and he grew out Pseudomonas at which time he was started on pseudomonal coverage with Zosyn. He had completed 2 full days prior to discharge and was transitioned to Levaquin 250 mg daily for another 5 days at the time of discharge. Reduced dose was utilized based on creatinine clearance. With ongoing diuresis via Lasix drip and treatment of his pneumonia his oxygen status slowly improved with time and we were able to wean him to 3 L nasal cannula at rest and 6 L nasal cannula with exertion which is his baseline oxygen. He did develop some right-sided knee pain during his hospital course. It appears consistent with gout and uric acid was obtained which was noted to be markedly elevated. This is not surprising giving the Lasix use during his hospitalization. He was started on a prednisone burst 40 mg daily x 5 days. He had 2 more days at discharge and was sent with prescription for this. His serum creatinine had bumped up to 3.12 at the time of discharge which is above his baseline. We went ahead and held his Bumex at the time of discharge until 05/05/2024 at which time he was instructed to restart this. I have also asked him to obtain a basic metabolic profile in the next 3 to 7 days with his primary care physician or his vice president quality. Again, he does have a appointment with his vice president quality as well as an appointment for right side heart cath to be done on 05/06/2024. We have also asked him to follow-up with his primary care physician within the next week. He was able to be discharged home on his baseline oxygen on 05/03/2024. Discharge diagnoses: Acute on chronic hypoxic respiratory failure Acute on chronic heart failure with preserved ejection fraction Pseudomonal pneumonia Paroxysmal atrial fibrillation/flutter Right knee gout Right knee moderate tricompartmental degenerative joint disease CAD Essential hypertension Hyperlipidemia Chronic anemia secondary to renal disease BRAYDON on CKD stage IV History of renal artery stenosis Pulmonary fibrosis FRANCISCO JAVIER Anxiety and depression Physical Exam Const alert, oriented x3, no apparent distress and average body habitus; Negative for healthy appearing Constitutional Narrative: Thin, white male, sitting up in a chair at the bedside, appears comfortable, nontoxic, sitting up in a chair at the bedside, remains on 3 L nasal cannula, no dyspnea with conversation, watching TV General Appearance: cooperative, comfortable, well kempt and well developed Exam Limitations: no limitations Nutritional Appearance: thin HEENT normocephalic, head/scalp atraumatic and moist oral mucous membranes HEENT Narrative: Dentures in place, Mallampati 2, no thrush, mild hearing loss Eyes EOMs intact bilaterally and conjunctivae normal Eyes Narrative: No scleral icterus Neck supple Neck Narrative: Trachea midline Resp normal respiratory effort, no retractions, no use of accessory muscles and clear to auscultation bilaterally Resp Narrative: Diminished but clear Auscultation: Negative for rales, rhonchi or wheezes Cardio regular rate, regular rhythm, S1 normal heart sound, S2 normal heart sound, no murmurs, no rub, no gallops and no clicks Cardio Narrative: Normal sinus rhythm today GI normal to inspection, nondistended, normoactive bowel sounds, soft to palpation and non-tender GI Narrative: Thin Extremity no clubbing, cyanosis or edema Extremity Narrative: 2+ radial and pedal pulses Skin skin turgor normal, no jaundice, no petechiae and no mottling Neuro oriented x3, moves all extremities and no focal motor deficits Speech: speech normal Psych affect normal Psych Narrative: patient interacts appropriately and jokes Weight / BMI Weight Weight: 61.099 kg Body Mass Index (BMI) 20.5 ABG / Lab / Microbiology Data 05/03/24 04:45 05/03/24 04:45 Laboratory: Laboratory Results - last 24 hr 05/03/24 04:45: WBC 9.5, RBC 3.04 L, Hgb 9.5 L, Hct 29.7 L, MCV 97.7 H, MCH 31.3, MCHC 32.0, RDW Std Deviation 55.5 H, RDW Coeff of Lisa 15.4 H, Plt Count 189, MPV 10.2, Immature Gran % (Auto) 0.500, Neut % (Auto) 81.2 H, Lymph % (Auto) 12.8 L, Gonzales % (Auto) 5.2, Eos % (Auto) 0.2, Baso % (Auto) 0.1, Absolute Neuts (auto) 7.7, Absolute Lymphs (auto) 1.22, Nucleated RBC % 0, Sodium 139, Potassium 3.9, Chloride Direct 96, Carbon Dioxide 26.9, Anion Gap 16 H, BUN 75 H , Creatinine 3.12 H, Estim Creat Clear Calc 16.86 L, Est GFR (MDRD) Non-Af 20 L, BUN/Creatinine Ratio 24.0 H, Glucose 136 H, Calcium 7.8, Magnesium 1.9 Microbiology: Microbiology 04/28/24 10:40 Sputum, Expectorated/Coughed Gram Stain - Final 04/28/24 10:40 Sputum, Expectorated/Coughed Respiratory Culture - Final Pseudomonas aeruginosa 04/26/24 16:45 Mucosa - Nose SARS-CoV-2, Influenza & RSV (PCR) - Final D/C Instructions Discharge Diet: Low fat / Low cholesterol (2 g sodium restriction/1.75 L of fluid restriction) Discharge Activity: Return to Normal Activity (Patient herself accordingly) DC O2, CPAP, BIPAP Needs PSN CPAP & BiPAP: BiPAP & CPAP Settings per PSN Mode CPAP 05/01/24 10:16 Bipap Delivery Device Nasal Pillows 04/27/24 09:00 BiPAP Inspiratory Pressure 14 04/26/24 16:30 BiPAP Expiratory Pressure 6 04/26/24 16:30 BiPAP Rate 12 04/26/24 16:30 Fraction of Inspired Oxygen ( 57 04/29/24 08:00 FIO2) Total Flow Rate 60 04/29/24 07:24 Home O2 Discharge instructions: Yes Type of respiratory needs?: Oxygen Oxygen frequency: Continuous Continuous oxygen liters per minute: 3 DC home with Oxygen: Yes Home O2 MD Review: I have reviewed the oxygen testing, and the patient qualifies for home oxygen equipment and portability. The patient is mobile in the home and the community. Meaningful Use Info Meaningful Use Meaningful Use Diagnoses (Choose all that apply): None applicable Ischemic Stroke Statin Dosing Therapy Reference: STATIN DOSE THERAPY REFERENCE: * Patients > 75 years receive moderate or high dose statin therapy. * Patients 75 years or YOUNGER should receive HIGH intensity statin dose unless contraindicated. You will be required to document reason for non-treatment if statin daily dose does not meet guidelines. HIGH DOSE STATIN THERAPY DAILY Atorvastatin > than or = to 40 mg Rosuvastatin > than or = to 20 mg Amlodipine + Atorvastatin > than or = to 2.5/40 mg Ezetimibe + Simvastatin 10/80 mg Simvastatin 80mg Discharge Plan Admission Admit Date/Time: 04/26/24 18:31 Primary Reason for Your Visit: Shortness of breath Attending Provider: Sue Murphy Primary Care Provider: Virginie Lockhart Consulting Providers: Mark Duffy; Jame Mcgregor; Simón Mo; Ian Rogers; Simón Moran; Justin Hercules; Benjamin Ortiz; Katherine Hoover; Olivier Murphy; Derrek Jensen; Mauro Ching; Keeley Ross; Kasandra Dahl; Linda Gilman; Serg,Pascual; Eliud Moreno; Raphael Fernandez; Dre Moon; Randy Milan; Juliane Moreira; Juan Antonio Mcnamara; Lopez Damon; Jeremiah Peña; Lazaro Garcia; Gris Leal; Emilee Song Instructions Additional Instructions / Restrictions: 1. Please hold Bumex until Saturday and then restart 2. Please either ask your primary care physician or your pulmonary doctor for a basic metabolic profile to recheck your kidney function and electrolytes within the next 3 to 7 days 3. Please follow-up with your pulmonary doctor as scheduled 4. Please complete prednisone for right knee gout 5. Please complete Levaquin for Pseudomonas pneumonia Discharge Orders/Prescriptions Prescriptions: New diltiazem HCl 180 mg Capsule,Extended Release 24hr 180 mg PO DAILY Qty: 30 0RF clonidine 0.3 mg/24 hr Patch Weekly 0.3 mg transdermal Q7D Qty: 4 0RF prednisone 10 mg tablet 10 mg PO DAILY Qty: 2 0RF levofloxacin 250 mg tablet 250 mg PO DAILY Qty: 5 0RF Continued nitroglycerin 0.4 mg tablet, sublingual 0.4 mg SL PRN PRN (Reason: Angina) Qty: 25 3RF ferrous sulfate [Feosol] 325 mg (65 mg iron) tablet 325 mg PO BID pirfenidone 267 mg tablet 801 mg PO TID Patient Comments: WEEK: QTY: PLEASE SEE ATTACHED INSTRUCTIONS hydralazine 100 mg tablet 100 mg PO TID Qty: 270 3RF Rx Instructions: Hold for SBP less than 130 mmHg Men's 50 Plus Multivitamin 400-20-370 mcg tablet 1 tab PO QDAY aspirin 81 MG tablet,chewable 81 mg PO QHS sodium bicarbonate 650 mg tablet 1,300 mg PO TID ezetimibe 10 mg tablet 10 mg PO QHS Qty: 90 3RF carvedilol 3.125 mg tablet 3.125 mg PO BID Qty: 60 11RF sertraline 50 mg tablet 50 mg PO DAILY Qty: 90 1RF atorvastatin 80 mg tablet 80 mg PO QHS Qty: 90 3RF doxazosin 8 mg tablet 8 mg PO QHS Qty: 90 3RF amlodipine 10 mg tablet 10 mg PO DAILY Qty: 90 0RF isosorbide mononitrate 120 mg tablet extended release 24 hr 120 mg PO QAM Qty: 90 3RF Held bumetanide 1 mg tablet 1 mg PO BID Hold Instructions: Resume on 05/06/01. Referrals / Follow Up: Virginie Lockhart MD [Primary Care Provider] - In 1 Week Disposition Disposition (needs filled in before D/C Order can be placed): Home, Self Care Charges/Coding Visit Charges Inpatient E&M: 64633 Disch Hosp >30min
[2024-05-03 13:00] VITALS: BP 145/62; PULSE 65; RESP 16; TEMP 36.6; O2SAT 98
== END 2024-05-03 13:28 | disposition home or self-care (01) | DRG 177 ==
LOC: ED 16:36 → ICU 20:04
PROVIDERS: Internal Medicine Critical Care Medicine; Admitting Provider Internal Medicine; Emergency Provider Emergency Medicine; PCP Internal Medicine; Visit Provider Internal Medicine
DX: J15.1 Pneumonia due to Pseudomonas (principal); J96.21 Acute and chronic respiratory failure with hypoxia; I50.33 Acute on chronic diastolic (congestive) heart failure; I24.89 Other forms of acute ischemic heart disease; N18.4 Chronic kidney disease, stage 4 (severe); I13.0 Hypertensive heart and chronic kidney disease with heart failure and stage 1 through stage 4 chronic kidney disease, or unspecified chronic kidney disease; I48.92 Unspecified atrial flutter; N17.9 Acute kidney failure, unspecified; J90 Pleural effusion, not elsewhere classified; I47.19 Other supraventricular tachycardia; D63.1 Anemia in chronic kidney disease; I27.20 Pulmonary hypertension, unspecified; B96.5 Pseudomonas (aeruginosa) (mallei) (pseudomallei) as the cause of diseases classified elsewhere; J84.112 Idiopathic pulmonary fibrosis; F32.A Depression, unspecified; Z95.828 Presence of other vascular implants and grafts; D53.9 Nutritional anemia, unspecified; G47.33 Obstructive sleep apnea (adult) (pediatric); I25.10 Atherosclerotic heart disease of native coronary artery without angina pectoris; E78.5 Hyperlipidemia, unspecified; E87.5 Hyperkalemia; E87.8 Other disorders of electrolyte and fluid balance, not elsewhere classified; M10.061 Idiopathic gout, right knee; M17.11 Unilateral primary osteoarthritis, right knee; R79.89 Other specified abnormal findings of blood chemistry; Z87.891 Personal history of nicotine dependence; F41.1 Generalized anxiety disorder; Z79.82 Long term (current) use of aspirin; R80.9 Proteinuria, unspecified; Z79.01 Long term (current) use of anticoagulants; Z96.0 Presence of urogenital implants; Z79.899 Other long term (current) drug therapy; Z79.02 Long term (current) use of antithrombotics/antiplatelets; Z96.659 Presence of unspecified artificial knee joint; Z95.1 Presence of aortocoronary bypass graft; Z95.5 Presence of coronary angioplasty implant and graft; Z98.890 Other specified postprocedural states
CPT/HCPCS: 36415; 36600; 71275; 73564; 80048; 82803; 83735; 83880; 84100; 84484; 84550; 85025; 85027; 87070; 87077; 87184; 87186; 87205; 87631; 90662; 93005; 93306; 94002; 94660; 94762; 97116; 97161; 97165; 99252; 99284; Q9967; A4216; G0463; J1940; J2405

== ENCOUNTER 2024-05-13 13:00 | Outpatient (RCR) | payer MEDICARE, OTHER, SELFPAY ==
[2024-04-16 11:06] VITALS: BMI 23.4
--- NOTE | 2024-05-14 07:31 | PCM.PR.TP ---
Exercise - Initial Assessment Visit Session Number:: 2 Physician Prescribed Exercise Modalities: SciFit Stepper and SciFit Pro-II Ergometer Current METSs:: 2 Target HR:: 107 (85-107) Maximum Exercise HR:: 96 Resting Blood Pressure: 130/50 Maximum Exercise Blood Pressure: 138/50 Minimum SpO2 with exercise: 84 EKG Type: NSR with frequent PAC's Nutrition/Wt Mgmt - Initial Visit Session Number:: 2 Weight Management Admit Height:: 5 ft 8 in Admit Weight:: 154 lb Admit BMI:: 23.4 Nutrition/Wt Mgmt - 30-Day Visit Date of Eval: 05/14/24 Session Number:: 2 Weight Management Height: 5 ft 8 in Weight:: 154 lb BMI: 23.4 Weight Goals Progress:: Progressing (Pt has only been able to attend 2 sessions due to recent hospitalization. Pt will attend nutrition class ) Nutrition/Wt Mgmt - 60-Day Visit Session Number:: 2 Weight Management Height: 5 ft 8 in Weight:: 154 lb BMI: 23.4 Nutrition/Wt Mgmt - 90-Day Visit Session Number:: 2 Weight Management Height: 5 ft 8 in Weight:: 154 lb BMI: 23.4 Nutrition/Wt Mgmt - Final Visit Session Number:: 2 Weight Management Height: 5 ft 8 in Weight:: 154 lb BMI: 23.4 Psychosocial - Initial Assess Visit Session Number:: 2 Problems/Goals History of Emotional Disorders: Anxious (due to illness) Psychosocial Goals: 1. Patient is free from overwhelming symtoms of depression (or anxiety, 2. Identifies personal stressors & states the strategies for managing, 3. Identifies activities to decrease isolation and/or symptoms of, 4. Improved psychosocial coping skills., 5. Verbalizes coping strategies., 6. Adequate treatment of depression. and 7. Improved Q.O.L. Self-reported stressors: Recent Illness Psychosocial Test Tool Used:: Pulmonary QOL and PHQ-9 Questionnaire Referred to MD for counseling:: No Referral to Behavioral Health PS - Interventions: Yes: Attend Stress Management Classes Intervention/Plan: See List Interventions/Plan:: Assess stressors,coping strategies & signs of derpression on admission, Instruct/assist pt to develop coping & personal stress Mgt strategies, Refer to Behavioral Health if appropriate, Refer to Physician if appropriate, Instruct patient to recognize signs & symptoms of depression, Instruct patient to recog and Other additional plan/intervention Comments:: Pt will attend stress management class Psychosocial - 30-Day Visit Date of Eval: 05/14/24 Session Number:: 2 Problems/Goals History of Emotional Disorders: Anxious (due to illness) Psychosocial Goals: 1. Patient is free from overwhelming symtoms of depression (or anxiety, 2. Identifies personal stressors & states the strategies for managing, 3. Identifies activities to decrease isolation and/or symptoms of, 4. Improved psychosocial coping skills., 5. Verbalizes coping strategies., 6. Adequate treatment of depression. and 7. Improved Q.O.L. Self-reported stressors: Recent Illness Psychosocial Test Tool Used:: Pulmonary QOL and PHQ-9 Questionnaire Referred to MD for counseling:: No Referral to Behavioral Health PS - Interventions: Yes: Attend Stress Management Classes Plan Interventions/Plan:: Assess stressors,coping strategies & signs of derpression on admission, Instruct/assist pt to develop coping & personal stress Mgt strategies, Refer to Behavioral Health if appropriate, Refer to Physician if appropriate, Instruct patient to recognize signs & symptoms of depression, Instruct patient to recog and Other additional plan/intervention Comments:: Pt will attend stress management class Psychosocial - 60-Day Visit Session Number:: 2 Problems/Goals History of Emotional Disorders: Anxious (due to illness) Psychosocial Goals: 1. Patient is free from overwhelming symtoms of depression (or anxiety, 2. Identifies personal stressors & states the strategies for managing, 3. Identifies activities to decrease isolation and/or symptoms of, 4. Improved psychosocial coping skills., 5. Verbalizes coping strategies., 6. Adequate treatment of depression. and 7. Improved Q.O.L. Self-reported stressors: Recent Illness Psychosocial Test Tool Used:: Pulmonary QOL and PHQ-9 Questionnaire Referred to MD for counseling:: No Referral to Behavioral Health PS - Interventions: Yes: Attend Stress Management Classes Plan Interventions/Plan:: Assess stressors,coping strategies & signs of derpression on admission, Instruct/assist pt to develop coping & personal stress Mgt strategies, Refer to Behavioral Health if appropriate, Refer to Physician if appropriate, Instruct patient to recognize signs & symptoms of depression, Instruct patient to recog and Other additional plan/intervention Comments:: Pt will attend stress management class Psychosocial - 90-Day Visit Session Number:: 2 Problems/Goals History of Emotional Disorders: Anxious (due to illness) Psychosocial Goals: 1. Patient is free from overwhelming symtoms of depression (or anxiety, 2. Identifies personal stressors & states the strategies for managing, 3. Identifies activities to decrease isolation and/or symptoms of, 4. Improved psychosocial coping skills., 5. Verbalizes coping strategies., 6. Adequate treatment of depression. and 7. Improved Q.O.L. Self-reported stressors: Recent Illness Psychosocial Test Tool Used:: Pulmonary QOL and PHQ-9 Questionnaire Referred to MD for counseling:: No Referral to Behavioral Health PS - Interventions: Yes: Attend Stress Management Classes Plan Interventions/Plan:: Assess stressors,coping strategies & signs of derpression on admission, Instruct/assist pt to develop coping & personal stress Mgt strategies, Refer to Behavioral Health if appropriate, Refer to Physician if appropriate, Instruct patient to recognize signs & symptoms of depression, Instruct patient to recog and Other additional plan/intervention Comments:: Pt will attend stress management class Psychosocial - Final Assess Visit Session Number:: 2 Problems/Goals History of Emotional Disorders: Anxious (due to illness) Psychosocial Goals: 1. Patient is free from overwhelming symtoms of depression (or anxiety, 2. Identifies personal stressors & states the strategies for managing, 3. Identifies activities to decrease isolation and/or symptoms of, 4. Improved psychosocial coping skills., 5. Verbalizes coping strategies., 6. Adequate treatment of depression. and 7. Improved Q.O.L. Self-reported stressors: Recent Illness Psychosocial Test Tool Used:: Pulmonary QOL and PHQ-9 Questionnaire Referred to MD for counseling:: No Referral to Behavioral Health PS - Interventions: Yes: Attend Stress Management Classes Plan Interventions/Plan:: Assess stressors,coping strategies & signs of derpression on admission, Instruct/assist pt to develop coping & personal stress Mgt strategies, Refer to Behavioral Health if appropriate, Refer to Physician if appropriate, Instruct patient to recognize signs & symptoms of depression, Instruct patient to recog and Other additional plan/intervention Comments:: Pt will attend stress management class Oxygen & Oxygen Titration Init Visit Session Number:: 2 Initial Assessment SpO2:: 84 Oxygen & Oxygen Titration 30D Visit Date of Eval: 05/14/24 Session Number:: 2 Reassessment Reassessment- 30 Days: Demonstrate knowledge of O2 Rx at rest & w/exercise, Using O2 as Rx'd, Has home O2 as Rx'd and Uses port O2 as Rx'd SpO2:: 84 Oxygen & Oxygen Titration 60D Visit Date of Eval: 05/14/24 Session Number:: 2 Reassessment SpO2:: 84 Oxygen & Oxygen Titration 90D Visit Date of Eval: 05/14/24 Session Number:: 2 Reassessment SpO2:: 84 Oxygen & Oxygen Titration GELACIO Visit Date of Eval: 05/14/24 Session Number:: 2 Reassessment SpO2:: 84 Core Components - Initial Visit Session Number:: 2 Hypertension Hypertension Diagnosis:: Hypertension ICD-10 I10 BP: 130/50 [place] [employer] Hypertension Guidelines Blood Pressure: 138/50 Outcomes/Goals: Able to verbalize/achieve optimal blood pressure <130/80 and Incorporates diet changes & exercise for blood pressure control by DC Tobacco - Initial Assessment Tobacco Program Goals Stages of Change:: Maintenance Do you have family support?: Yes (Pt stopped smoking 50 years ago) Gave Education Materials For:: Tobacco Triggers, Pulmonary Disease, Risk Factors, Breathing Techniques, Medical Compliance, Pulmonary A&P, Exacerbation Signs & Symptoms and Stress & Relaxation Core Components - 30 DAYS Visit Date of Eval: 05/14/24 Session Number:: 2 Hypertension Hypertension Diagnosis:: Hypertension ICD-10 I10 Resting Blood Pressure:: 130/50 [place] [employer] Hypertension Guidelines Peak Exercise Blood Pressure:: 138/50 Outcomes/Goals: Able to verbalize/achieve optimal blood pressure <130/80 and Incorporates diet changes & exercise for blood pressure control by DC Interventions/plan: Instruct on optimal blood pressure, hypertension & medications and Instruct on effects of sodium, alcohol, stress, exercise &hypertension 30 day Reassessments:: Progressing Reassessment Notes & Comments:: Pt has only been able to attend 2 sessions due to recent hospitalization. Will continue to monitor BP's and report to physician if necessary Tobacco - 30-Day Tobacco Program Goals Stages of Change:: Maintenance Learning Barriers: Participates in education Do you have family support?: Yes (Pt stopped smoking 50 years ago) Gave Education Materials For:: Tobacco Triggers, Pulmonary Disease, Risk Factors, Breathing Techniques, Medical Compliance, Pulmonary A&P, Exacerbation Signs & Symptoms and Stress & Relaxation Exacerbation Mgmt & Airway Clearance Reassessment: Demonstrates knowledge of O2 Rx at rest, Demonstrates knowledge of O2 Rx with exercise, Using O2 as prescribed, Has home O2 as prescribed and Uses port O2 as prescribed Bronchial Hygiene Plan: Yes: Pt demonstrates correctly for effective cough, Yes: Pt demo correct for CPT, Yes: Pt demo correct for device, Yes: Pt demo correct for NS nasal spray, Yes: Pt demo correct for sputum management, Yes: Pt demo correct for improved hydration, Yes: Pt demo correct for hand hygiene, Yes: Pt demo correct for evalute sputum, Yes: Pt demo correct for verbalize when to call MD and Yes: Pt demo correct for cleaning of respiratory equipment Medication Medication list reviewed:: Yes Taking medications 100% of the time:: Met Medication reassessment: Yes: Pt demonstrates correct technique timing for MDI, Yes: Pt demonstrates correct technique timing for DPI, Yes: Pt demonstrates correct technique timing for NEB and Yes: Pt demonstrates correct technique timing for spacer Core Components - 60 DAYS Visit Session Number:: 2 Hypertension Hypertension Diagnosis:: Hypertension ICD-10 I10 Resting Blood Pressure:: 130/50 [place] [employer] Hypertension Guidelines Peak Exercise Blood Pressure:: 138/50 Outcomes/Goals: Able to verbalize/achieve optimal blood pressure <130/80 and Incorporates diet changes & exercise for blood pressure control by DC Interventions/plan: Instruct on optimal blood pressure, hypertension & medications and Instruct on effects of sodium, alcohol, stress, exercise &hypertension 60 day Reassessments:: Progressing Reassessment Notes & Comments:: Pt has only been able to attend 2 sessions due to recent hospitalization. Will continue to monitor BP's and report to physician if necessary Tobacco - 60-Day Tobacco Program Goals Stages of Change:: Maintenance Learning Barriers: Participates in education Do you have family support?: Yes (Pt stopped smoking 50 years ago) Gave Education Materials For:: Tobacco Triggers, Pulmonary Disease, Risk Factors, Breathing Techniques, Medical Compliance, Pulmonary A&P, Exacerbation Signs & Symptoms and Stress & Relaxation Exacerbation Mgmt & Airway Clearance Reassessment: Demonstrates knowledge of O2 Rx at rest, Demonstrates knowledge of O2 Rx with exercise, Using O2 as prescribed, Has home O2 as prescribed and Uses port O2 as prescribed Bronchial Hygiene Plan: Yes: Pt demonstrates correctly for effective cough, Yes: Pt demo correct for CPT, Yes: Pt demo correct for device, Yes: Pt demo correct for NS nasal spray, Yes: Pt demo correct for sputum management, Yes: Pt demo correct for improved hydration, Yes: Pt demo correct for hand hygiene, Yes: Pt demo correct for evalute sputum, Yes: Pt demo correct for verbalize when to call MD and Yes: Pt demo correct for cleaning of respiratory equipment Medication Taking medications 100% of the time:: Met Medication reassessment: Yes: Pt demonstrates correct technique timing for MDI, Yes: Pt demonstrates correct technique timing for DPI, Yes: Pt demonstrates correct technique timing for NEB and Yes: Pt demonstrates correct technique timing for spacer Core Components - 90 DAYS Visit Session Number:: 2 Hypertension Hypertension Diagnosis:: Hypertension ICD-10 I10 Resting Blood Pressure:: 130/50 [place] [employer] Hypertension Guidelines Peak Exercise Blood Pressure:: 138/50 Outcomes/Goals: Able to verbalize/achieve optimal blood pressure <130/80 and Incorporates diet changes & exercise for blood pressure control by DC Interventions/plan: Instruct on optimal blood pressure, hypertension & medications and Instruct on effects of sodium, alcohol, stress, exercise &hypertension 90 day Reassessments:: Progressing Reassessment Notes & Comments:: Pt has only been able to attend 2 sessions due to recent hospitalization. Will continue to monitor BP's and report to physician if necessary Tobacco - 90-Day Tobacco Program Goals Stages of Change:: Maintenance Learning Barriers: Participates in education Do you have family support?: Yes (Pt stopped smoking 50 years ago) Gave Education Materials For:: Tobacco Triggers, Pulmonary Disease, Risk Factors, Breathing Techniques, Medical Compliance, Pulmonary A&P, Exacerbation Signs & Symptoms and Stress & Relaxation Exacerbation Mgmt & Airway Clearance Bronchial Hygiene Plan: Yes: Pt demonstrates correctly for effective cough, Yes: Pt demo correct for CPT, Yes: Pt demo correct for device, Yes: Pt demo correct for NS nasal spray, Yes: Pt demo correct for sputum management, Yes: Pt demo correct for improved hydration, Yes: Pt demo correct for hand hygiene, Yes: Pt demo correct for evalute sputum, Yes: Pt demo correct for verbalize when to call MD and Yes: Pt demo correct for cleaning of respiratory equipment Medication Medication reassessment: Yes: Pt demonstrates correct technique timing for MDI, Yes: Pt demonstrates correct technique timing for DPI, Yes: Pt demonstrates correct technique timing for NEB and Yes: Pt demonstrates correct technique timing for spacer Core Components - Final Visit Session Number:: 2 Hypertension Hypertension Diagnosis:: Hypertension ICD-10 I10 Resting Blood Pressure:: 130/50 [place] [employer] Hypertension Guidelines Peak Exercise Blood Pressure:: 138/50 Outcomes/Goals: Able to verbalize/achieve optimal blood pressure <130/80 and Incorporates diet changes & exercise for blood pressure control by DC Tobacco - Final Tobacco Program Goals Stages of Change:: Maintenance Learning Barriers: Participates in education Do you have family support?: Yes (Pt stopped smoking 50 years ago) Exacerbation Mgmt & Airway Clearance Bronchial Hygiene Plan: Yes: Pt demonstrates correctly for effective cough, Yes: Pt demo correct for CPT, Yes: Pt demo correct for device, Yes: Pt demo correct for NS nasal spray, Yes: Pt demo correct for sputum management, Yes: Pt demo correct for improved hydration, Yes: Pt demo correct for hand hygiene, Yes: Pt demo correct for evalute sputum, Yes: Pt demo correct for verbalize when to call MD and Yes: Pt demo correct for cleaning of respiratory equipment Medication Medication reassessment: Yes: Pt demonstrates correct technique timing for MDI, Yes: Pt demonstrates correct technique timing for DPI, Yes: Pt demonstrates correct technique timing for NEB and Yes: Pt demonstrates correct technique timing for spacer Patient Health Questionnaire PHQ-9 Screening 30-Day Re-eval Assessment: 1. Little interest or pleasure in doing things: Several days 2. Feeling down, depressed, or hopeless: Not at all 3. Trouble falling or staying asleep, or sleeping too much: More than half the days 4. Feeling tired or having little energy: More than half the days 5. Poor appetite or overeating: Several days 6. Feeling bad about yourself -- or that you are a failure or have let yourself or your family down: Not at all 7. Trouble concentrating on things, such as reading the newspaper or watching television: Not at all 8. Moving or speaking so slowly that other people could have noticed. Or the opposite - being so fidgety or restless that you have been moving around a lot more than usual: Not at all 9. Thoughts that you would be better off , or of hurting yourself in some way: Not at all Total Score: 6 Knowledge Questionaire (BCKQ) Information Information: [place] COPD Knowledge Questionnaire (BCKQ) This questionnaire is designed to find out what you know about your lung problem. It should be completed without help form anyone else. This usually takes between 10 and 20 minutes. Your answers will help us to find out what information you need to help you to understand and manage your lung condition. Tate the paimiut which you think is the correct answer. Self-Efficacy 6-Item Scale 30-Day Re-eval Assessment: We would like to know how confident you are in doing certain activities. Please select your confidence level for: Fatigue Select Number: 5 Physical Discomfort or Pain Select Number: 5 Emotional Distress Select Number: 5 Other Symptoms or Health Problems Select Number: 5 Different Tasks and Activities Select Number: 5 Medication Select Number: 5 Total Score:: 5 Nutrition Survey Nutrition Survey Instructions Scoring Instructions
[2024-05-14 07:40] VITALS: BP 130/50; BP 138/50; O2SAT 84; BMI 23.4
== END 2024-06-01 23:59 ==
LOC: PR 13:00
PROVIDERS: PCP Internal Medicine
DX: J84.112 Idiopathic pulmonary fibrosis (principal)
CPT/HCPCS: 97150; G0239

== ENCOUNTER 2024-05-14 15:17 | Inpatient (IN) | payer MEDICARE, OTHER, SELFPAY ==
[2024-05-14] VITALS (16 sets, daily range): BP systolic 108–171; BP diastolic 46–70; PULSE 70–94; RESP 16–30; TEMP 36.4–37.1; O2SAT 76–100; BMI 23.4; BMI 25.7
--- NOTE | 2024-05-14 15:25 | ED.VIS.DYS ---
HPI History of Present Illness Chief Complaint: Shortness of Breath [facility] Medical History (Updated 05/14/24 @ 21:[address] Simón Vasques, DO) Chronic kidney disease, stage IV (severe) Elevated troponin Pulmonary fibrosis History of pulmonary fibrosis History of chronic kidney disease History of atrial fibrillation Hyperkalemia Weight loss, non-intentional Stage III chronic kidney disease BPH (benign prostatic hyperplasia) Insomnia Anemia GI bleed Anxiety Depression Kidney disease Former smoker On home oxygen therapy Atrial fibrillation Coronary artery disease Hypertension Respiratory failure with hypoxia CHF (congestive heart failure) Hypoxia Hemoptysis Hypoxia Interstitial lung disease Chronic cough Flu vaccine need Increased sputum production Generalized anxiety disorder Diarrhea Varicose veins of both lower extremities Arthritis Secondary pulmonary arterial hypertension FRANCISCO JAVIER (obstructive sleep apnea) Pleural effusion due to CHF (congestive heart failure) (08/27/19) Diverticulitis Hypoxia Elevated troponin (04/07/19) PND (post-nasal drip) Transient ischemic attack Anemia in chronic kidney disease (CKD) CVA (cerebral vascular accident) Stenosis of left subclavian artery Chronic kidney disease, stage 3 Renal artery stenosis Paroxysmal atrial flutter Bilateral carotid artery stenosis Peripheral vascular occlusive disease Atherosclerosis of coronary artery of [place] heart without angina pectoris Essential (primary) hypertension Hyperlipidemia Chronic diastolic (congestive) heart failure GERD (gastroesophageal reflux disease) Gout Arthritis Home Medications ?Medication ?Instructions ?Recorded ?Last Taken ?Type aspirin 81 mg chewable tablet 81 mg PO QHS Heart 08/03/19 05/13/24 History nitroglycerin 0.4 mg sublingual 0.4 mg sublingual PRN PRN Angina 08/14/22 Unknown Rx tablet #25 tabs ferrous sulfate 325 mg (65 mg 325 mg PO BID supplement 01/16/23 05/14/24 History iron) tablet (Feosol) ezetimibe 10 mg tablet 10 mg PO QHS cholesterol #90 tabs 09/02/23 05/13/24 Rx hydralazine 100 mg tablet 100 mg PO TID #270 tabs 09/25/23 05/14/24 Rx pirfenidone 267 mg tablet 801 mg PO TID Pulmonary fibrosis 09/25/23 05/14/24 History carvedilol 3.125 mg tablet 3.125 mg PO BID blood pressure #60 10/17/23 05/14/24 Rx tabs atorvastatin 80 mg tablet 80 mg PO QHS for cholesterol #90 12/23/23 05/13/24 Rx TABLETS doxazosin 8 mg tablet 8 mg PO QHS #90 tabs 12/25/23 05/13/24 Rx amlodipine 10 mg tablet 10 mg PO DAILY blood pressure #90 03/03/24 04/26/24 Rx tabs jxiimolvrbhz-[id number]-vnafg acid-vit 1 tab PO QDAY VITAMIN 03/23/24 05/14/24 History K-lycop 400 mcg-20 mcg-370 mcg tablet (Men's 50 Plus Multivitamin) isosorbide mononitrate 120 mg 120 mg PO QAM this is a dose 04/07/24 05/14/24 Rx tablet,extended release 24 hr increase #90 tabs sodium bicarbonate 650 mg tablet 1,300 mg PO TID kidneys 04/12/24 05/14/24 History bumetanide 1 mg tablet 1 mg PO BID CHF 04/23/24 05/14/24 History clonidine 0.3 mg/24 hr weekly 0.3 mg transdermal Q7D #4 ea 05/03/24 Unknown Rx transdermal patch Held on 05/14/24. Instructions: BP RUNNING LOW AT HOME diltiazem HCl 180 mg 180 mg PO DAILY #30 caps 05/03/24 05/14/24 Rx capsule,extended release 24 hr sertraline 50 mg tablet 50 mg PO DAILY mental health #90 05/04/24 05/14/24 Rx tabs fluticasone propionate 50 1 spray intranasal DAILY PRN 05/14/24 05/13/24 History mcg/actuation nasal allergy symptoms spray,suspension (Flonase Allergy Relief) Allergy/AdvReac Type Severity Reaction Status Date / Time No Known Allergies Allergy Verified 04/26/24 15:55 Family History Son CAD (coronary artery disease) Brother CAD (coronary artery disease) Diabetes Brother CAD (coronary artery disease) Diabetes Other Anemia Arthritis CVA (cerebral vascular accident) Hyperlipemia Hypertension Kidney disease Skin cancer Surgical History H/O basal cell carcinoma excision (09/2018) History of left common carotid artery stent placement (2003) History of stent insertion of renal artery (10/01/19) History of angioplasty of peripheral vessel History of left heart catheterization (08/13/12) H/O coronary artery bypass surgery (08/14/12) History of herniorrhaphy History of right-sided carotid endarterectomy (05/2016) H/O colonoscopy History of knee replacement Social History Smoking Status: Former smoker Tobacco: How many years used: 15 how long ago did patient quit smokin second hand exposure: No alcohol intake: current alcohol intake frequency: holidays/special occasions only substance use type: does not use caffeine: Yes EXAM Physical Exam Const Vital Signs: 05/14/24 15:18 05/14/24 15:33 05/14/24 16:13 Temperature 97.6 F L Temperature Source Temporal Pulse Rate 77 70 Respiratory Rate 30 H 19 H Respiratory Effort Short of Breath Blood Pressure 108/46 L 154/55 H Blood Pressure Mean 66 88 Pulse Ox 76 93 Oxygen Delivery Method Nasal Cannula Nasal Cannula Oxygen Flow Rate (L/min) 8 6 05/14/24 16:54 05/14/24 17:51 05/14/24 18:54 Temperature 97.8 F 97.9 F Temperature Source Temporal Temporal Pulse Rate 70 77 70 Respiratory Rate 19 H 17 18 Respiratory Effort Blood Pressure 166/62 H 155/53 H 171/56 H Blood Pressure Mean 96 87 94 Pulse Ox 96 95 96 Oxygen Delivery Method Nasal Cannula Nasal Cannula Nasal Cannula Oxygen Flow Rate (L/min) 7 7 05/14/24 19:02 05/14/24 20:00 05/14/24 21:00 Temperature 98.2 F 98.5 F Temperature Source Oral Pulse Rate 75 90 86 Respiratory Rate 22 H 23 H 17 Respiratory Effort Blood Pressure 143/58 H 164/58 H 161/67 H Blood Pressure Mean 86 93 98 Pulse Ox 94 91 95 Oxygen Delivery Method High Flow High Flow Oxygen Flow Rate (L/min) 7 7 MDM MDM MDM Narrative Medical decision making narrative: HISTORY OF PRESENT ILLNESS: 78-year-old male history of anxiety, CKD 3, GI bleed, pulmonary fibrosis, CVA, FRANCISCO JAVIER who shortness of breath. States he always wears 8 L of oxygen. Notes increasing shortness of breath acutely this morning. Per they were going to come into the ED at that time but he felt a bit better. He got worse suddenly this afternoon. She notes increasing lower extremity edema. He notes shortness of breath but denies chest pain. Denies any bleeding diathesis. Denies sick contacts. Denies cough fever chills. Denies vomiting or diarrhea. He does note nausea. The patient denies recent surgery in the last 4 weeks or immobilization in the last 3 days, denies previous diagnosis of DVT or PE, hemoptysis, unilateral leg swelling or malignancy with treatment the last 6 months or palliative. No estrogen use noted. REVIEW OF SYSTEMS: Pertinent positives: Shortness of breath, Leg swelling Pertinent negatives: Syncope, chest pain PHYSICAL EXAM: Nursing triage notes reviewed, Vital signs reviewed Constitutional: please see mdm HENT: MMM Eyes: Pupils equal round and reactive to light, Extraocular muscles intact Neck: No stridor, no JVD, full neck ROM Lungs: Clear to auscultation, No wheezing or rales. No increased work of breathing, no conversational dyspnea, no accessory muscle use, no nasal flaring. No respiratory distress noted Heart: Regular rate and rhythm, No murmurs, No rubs and No gallops, 2+ distal pulses (radial, femoral, posterior tibial) in all extremities Abdomen: Soft, there is no tenderness, rigidity, rebound or guarding, no obvious peritoneal signs, no palpable pulsatile abdominal masses, no auscultated abdominal bruit : No CVAT Extremities: Trace edema noted in bilateral lower extremity Neuro: No new focal neurological deficits, cranial nerves II through XII intact, 5/5 strength in all present extremities. Intact sensation to light touch in all present extremities, 2+ reflexes bilateral patella tendons. Skin: No rash or lesions noted MEDICAL DECISION MAKING: Chief Complaint: Shortness of External records reviewed: Reviewed prior ED visit. Reviewed admission from May 2024. At that time patient's ejection fraction was noted to be 50 to 55%. Patient respiratory culture during his recent hospitalization grew Pseudomonas. Treated with initially Zosyn and then levofloxacin. Factors affecting care: pulmonary fibrosis, chronic hypoxemic respiratory failure, CHF, CAD status post CABG, hypertension, hyperlipidemia, CKD Social determinants of health: none History obtained from others: Consults: Internal medicine (Dr. Cuellar) [facility] Narrative: Patient was initially tachypneic with respirate of 30, saturating 76% on nasal cannula. Patient was initially placed on high flow nasal cannula but weaned down to 6 L home O2 when I initially evaluated the patient. His respiratory rate had improved to 18. He had no increased work of breathing, he did not have any conversational dyspnea did not appear in respiratory distress. He appeared comfortable. I considered the following differential diagnosis: Acute on chronic respiratory failure, CHF, ACS, arrhythmia, anemia, electrolyte disturbance, COVID, RSV, flu, pneumonia ALL IMAGES (IF OBTAINED) HAVE BEEN PERSONALLY REVIEWED AND INTERPRETED BY MYSELF. EKG with normal sinus rhythm rate of 69, first-degree AV block with a prolonged HI interval 210, normal QTc interval, normal axis, no obvious STEMI, noted lateral T wave inversions that are similar to prior EKG when compared to April 2024 ABG without evidence of acidosis noted hypoxia. Patient was noted to be 91% and placed back on high flow nasal cannula at 7 L. CBC without leukocytosis, severe anemia, no thrombocytopenia. With no leukocytosis to suggest active inflammation, noted stable anemia, no thrombocytopenia noted BMP without significant electrolyte disturbances, there is no sign of a metabolic acidosis, there is sign of endorgan hypoperfusion with elevated anion gap likely secondary to hypoxia, noted baseline kidney function with a creatinine of 2.72 Chest x-ray was read reviewed personally myself shows evidence of cardiomegaly and pulmonary venous congestion consistent with likely COPD exacerbation BNP elevated consistent with volume overload Troponin elevated however downtrending from prior likely secondary demand ischemia from hypoxia and CKD. No sign of ACS or occlusive coronary artery disease COVID RSV flu negative Given signs of volume overload, initial hypoxia and requirement for high flow nasal cannula patient be admitted. Gave 60 mg IV Lasix. Discussed with the hospitalist. The patient and/or family, caregivers express understanding. The patient and/or family, caregivers agrees with the plan. Shared decision making: I will have a discussion with the patient and or visitors regarding risk/benefits of further testing or admission. They will be made aware of of the risk/benefits inherent in this decision they will be given the opportunity to voice understanding. Total critical care time today provided was at least 30 minutes. This excludes separately billable procedures. Critical care time (if documented) is secondary to the patient having high probability of clinically significant/life threatening deterioration in the patient's condition which required my urgent intervention. Impression: 1. Acute on chronic hypoxic respiratory 2. CHF exacerbation 3. CKD Dispo: Admit to ICU This note was generated with [employer] software. It may contain incorrect words, spelling, and punctuation that were not noted in review of the chart prior to signing. Lab Data Labs: Laboratory Results - last 24 hr 05/14/24 05/14/24 05/14/24 15:31 17:41 19:39 WBC 9.8 RBC 2.98 L Hgb 9.4 L Hct 29.2 L MCV 98.0 H MCH 31.5 MCHC 32.2 RDW Std Deviation 56.5 H RDW Coeff of Lisa 15.7 H Plt Count 275 MPV 10.1 Immature Gran % (Auto) 0.600 Neut % (Auto) 79.6 H Lymph % (Auto) 11.5 L [place] % (Auto) 6.7 Eos % (Auto) 1.4 Baso % (Auto) 0.2 Absolute Neuts (auto) 7.8 H Absolute Lymphs (auto) 1.13 Nucleated RBC % 0 Sodium 143 Potassium 4.3 Chloride 103 Carbon Dioxide 24.4 Anion Gap 16 H BUN 84 H Creatinine 2.72 H Est GFR (MDRD) Non-Af 23 L BUN/Creatinine Ratio 30.7 H Glucose 151 H Calcium 8.5 Magnesium 2.5 H Troponin T High Sens 117 H* Troponin T Hi Sens 2 Hr 110 H* Troponin T Hi Sens 4Hr 107 H* [place] [address] H ABG Data ABG results: ABG 05/14/24 16:08 Specimen Type ART Sample Site L Brach pH 7.49 H Bicarbonate Actual 31.2 H Total CO2 33 Base Excess 8 H O2 Saturation 95 O2 % 6.0 ABG pCO2 40.6 ABG pO2 67 L Jamel Test Positive O2 Delivery Device Cannula Vent Mode Not entered Radiography Diagnostic Testing: Clinical Impression(s) from Imaging Studies Chest X-Ray 05/14/24 15:47 IMPRESSION: Cardiomegaly and CHF with small bilateral pleural effusions and bibasilar atelectasis. Reading Location: [facility] Discharge Plan Disposition Disposition: Acute Care Hospital [facility] Discharge Date/Time: 05/14/24 21:38
--- NOTE | 2024-05-14 15:47 | EKG12_ITS ---
Test Reason : VTACH MONITOR Blood Pressure : */* mmHG Vent. Rate : 105 BPM Atrial Rate : 136 BPM P-R Int : * ms QRS Dur : 110 ms QT Int : 394 ms P-R-T Axes : 73 68 216 degrees QTcB Int : 520 ms Critical Test Result: AV Block Sinus tachycardia with 2nd degree A-V block ([place] I) with occasional and consecutive Premature ventricular complexes Incomplete left bundle branch block Left ventricular hypertrophy with repolarization abnormality ( [place] product , Romhilt-Lamb ) Prolonged QT Abnormal ECG No previous ECGs available Confirmed by KAYODE DIAZ, SUNG ([id number]), video editor FUENTES MUELLER ([id number]) on 05/21/2024 1:03:21 PM Referred By: Confirmed By: SUNG HEADLEY MD
--- NOTE | 2024-05-14 15:47 | RAD_ITS ---
PROCEDURE: CHEST 1 VIEW (PORTABLE) 05/14/2024 REASON FOR EXAM: SHORTNESS OF BREATH TECHNIQUE: Frontal view of the chest. COMPARISON: Comparison is made with prior study dated April 11, 2024. FINDINGS: EKG electrodes are seen. Vascular congestion and CHF with small bilateral pleural effusions and bibasilar atelectasis. Findings suggestive of scarring at the lung bases. Prior CABG. Calcification of the aortic arch. RAD/Chest 1 View (Portable) IMPRESSION: Cardiomegaly and CHF with small bilateral pleural effusions and bibasilar atele ctasis. Reading Location: [id number]
[2024-05-14 15:57] LABS: Absolute Lymphocyte Count 1.13 X10^3/uL (0.83-4.51); Absolute Neutrophil Count 7.8 X10^3/uL (2.0-7.7); Basophil# 0.02 X10^3/uL; Basophil% 0.2 % (0-1); Eosinophil# 0.14 X10^3/uL; Eosinophils% 1.4 % (0-5); Hematocrit 29.2 % (40-54); Hemoglobin 9.4 g/dL (13.0-16.5); Lymphocyte # 1.13 X10^3/ul (0.83-4.51); Lymphocyte % 11.5 % (19-41); Mean Corp Hgb Conc 32.2 g/dL (32-36); Mean Corpuscular Hgb 31.5 pg (27.0-32.0); Mean Platelet Vol. 10.1 fl (6.2-12.0); Monocyte# 0.66 X10^3/uL; Monocyte% 6.7 % (0-10); NRBC Flagged by Analyzer 0 % (0-5); Neutrophil # 7.83 X10^3/uL (2.7-7.7); Neutrophil % 79.6 % (47-70); Platelet Count 275 K/mm3 (150-450); RBC Distribution Width CV 15.7 % (11.6-14.6); RBC Distribution Width SD 56.5 fl (35.1-43.9); Red Blood Count 2.98 M/mm3 (4.6-6.2); White Blood Count 9.8 K/mm3 (4.4-11.0)
[2024-05-14 16:11] LABS: Allen Test Positive; Base Excess 8 mmol/L (-2 to +2); Bicarbonate 31.2 mmol/L (22-26); Blood Gas Specimen Type ART; Mode Not entered; O2 Delivery Device Cannula; PO2 67 mmHG (75-100); SITE L Brach; SO2 95 % (95-99); Total Carbon Dioxide 33 mmol/L; pCO2 40.6 mmHg (35-45); pH 7.49 (7.35-7.45)
[2024-05-14 16:21] LABS: Anion Gap 16 (5-15); BUN 84 mg/dL (4-19); BUN/Creat Ratio 30.7 RATIO (10-20); Calcium,Total 8.5 mg/dL (7.6-11.0); Carbon Dioxide 24.4 mmol/L (21.0-32.0); Chloride 103 mmol/L (98-108); Creatinine, Serum 2.72 mg/dL (0.70-1.20); EST Glomerular Filtration Rate 23 (>60); Glucose 151 mg/dL (70-99); Potassium 4.3 mmol/L (3.3-5.1); Sodium Level 143 mmol/L (133-145)
[2024-05-14 16:48] LABS: Pro- Brain NATRIURETIC PEPTIDE 37931 pg/mL (<=1800); Troponin T High Sensitivity 117 ng/L (<=22)
[2024-05-14 18:36] LABS: Troponin T High Sens 2 HR 110 ng/L (<=22)
[2024-05-14] MEDS: Furosemide 100 MG/10 ML Vial 60 MG IV (18:59)
--- NOTE | 2024-05-14 19:55 | PCM.HP.STD ---
[facility] - General General Date of Admission: 05/14/24 Date of Service: 05/14/24 Chief Complaint: SOB. [facility] Narrative EKTA CONWAY, is a 78 M with a past medical history of essential hypertension; on amlodipine, clonidine TTS 0.3 mg patch, hydralazine and bumetanide 1 mg p.o. twice daily, hyperlipidemia; on ezetimibe plus atorvastatin, former history of tobacco abuse x ~42 years (quit ~2009), CAD; s/p CABG x 4 (2012) on ISMO and as needed SL NTG, history of atrial fibrillation; on diltiazem but not on anticoagulation, history of chronic diastolic CHF; with preserved LVEF of ~50% (05/2024), history of TIA/CVA, history of stenosis of the Left subclavian artery, history of bilateral carotid artery stenosis; s/p Left common carotid artery stent (2003) and Right carotid endarterectomy (2016), history of pulmonary fibrosis with ILD; on pirfenidone 3 times daily, chronic hypoxic respiratory failure on 8L nasal cannula at home continuous, history of secondary arterial pulmonary hypertension; currently not on treatment, FRANCISCO JAVIER; on CPAP, CKD; stage IV on sodium bicarbonate 1300 mg p.o. 3 times daily, peripheral vascular disease; s/p angioplasty of peripheral vessel with bilateral internal and external iliac stents, history of varicose veins of both lower extremities, history of bilateral renal artery stenosis; s/p Left/Right stent (), history of GI bleed, JEAN; on ferrous sulfate twice daily, history of diverticulitis, history of hernia; s/p repair, history of basal cell carcinoma; s/p excision (2018), depression; on sertraline, BPH; on doxazosin, allergic rhinitis; on fluticasone propionate daily as needed, history of gout, OA; s/p TKR and recent admission here from April 26, 2024 to May 03, 2024 with initial chief complaints of shortness of breath and lower extremity edema complicated by clinical evidence of acute hypoxic respiratory failure requiring BiPAP with CTA of chest done in ER negative for PE but positive for moderate bilateral pleural effusions with patient started on Lasix for acute exacerbation of chronic diastolic CHF after one of his primary care doctors decrease his bumetanide from twice daily to once daily compounded by suspected pneumonia with sputum cultures eventually growing out Pseudomonas aeruginosa treated initially with Zosyn and then transition of the levofloxacin with patient set up to undergo outpatient Right heart catheterization to evaluate severity of pulmonary hypertension on May 06, 2024 who now re-presents to [facility] ER complaining of shortness of breath. Mr. Conway reports his symptoms began earlier this morning when he awakened noting worsening shortness of breath. His explained to the ER physician that they were going to come into the ER at that time but he began to feel better and then suddenly decompensated this afternoon with associated increasing lower extremity edema so they finally decided to come in for further evaluation and treatment. According to the ER physician patient's recent Right heart catheterization revealed only mild secondary arterial pulmonary artery hypertension. He admits to nausea but he denies associated chest pain, syncope, near syncope recent bleeding, recent sick contacts, cough, fever, chills, vomiting or diarrhea. In the ER he was noted to have an elevated NT pro-BNP II of 37,931 pg/mL (up from his previous baseline pro-BNP of 2,775 pg/mL last admission) with chest x-ray revealing cardiomegaly and CHF with small bilateral pleural effusions and bibasilar atelectasis consistent with AE of chronic diastolic CHF; with preserved LVEF with the patient also noted to be be tachypneic with a respiratory rate of 30 and saturating 76% on 6 L nasal cannula but then was switched to high flow oxygen with ABG revealing pH 7.49/pCO2 40.6 mmHg/pO2 67 mmHg/bicarbonate 31.2 mmol/L at 95% on 6L NC consistent with Acute-on Chronic Hypoxic Respiratory Failure complicated by laboratory evidence of CKD stage IV with elevated serum creatinine of 2.72 mg/dL, BUN of 84 mg/dL and eGFR of 23 mL/min along with elevated troponin T levels of 117 ng/L present on admission consistent with suspected Acute Cardiac Strain. He was then started on Airvo and transferred to ICU for ongoing care for status expected to extend beyond 2 midnights. [facility] Medical History (Updated 05/15/24 @ 02:[address] Simón Vasques, ) Chronic kidney disease, stage IV (severe) Elevated troponin Pulmonary fibrosis History of pulmonary fibrosis History of chronic kidney disease History of atrial fibrillation Hyperkalemia Weight loss, non-intentional Stage III chronic kidney disease BPH (benign prostatic hyperplasia) Insomnia Anemia GI bleed Anxiety Depression Kidney disease Former smoker On home oxygen therapy Atrial fibrillation Coronary artery disease Hypertension Respiratory failure with hypoxia CHF (congestive heart failure) Hypoxia Hemoptysis Hypoxia Interstitial lung disease Chronic cough Flu vaccine need Increased sputum production Generalized anxiety disorder Diarrhea Varicose veins of both lower extremities Arthritis Secondary pulmonary arterial hypertension FRANCISCO JAVIER (obstructive sleep apnea) Pleural effusion due to CHF (congestive heart failure) (08/27/19) Diverticulitis Hypoxia Elevated troponin (04/07/19) PND (post-nasal drip) Transient ischemic attack Anemia in chronic kidney disease (CKD) CVA (cerebral vascular accident) Stenosis of left subclavian artery Chronic kidney disease, stage 3 Renal artery stenosis Paroxysmal atrial flutter Bilateral carotid artery stenosis Peripheral vascular occlusive disease Atherosclerosis of coronary artery of [place] heart without angina pectoris Essential (primary) hypertension Hyperlipidemia Chronic diastolic (congestive) heart failure GERD (gastroesophageal reflux disease) Gout Arthritis Home Medications ?Medication ?Instructions ?Recorded ?Last Taken ?Type aspirin 81 mg chewable tablet 81 mg PO QHS Heart 08/03/19 05/13/24 History nitroglycerin 0.4 mg sublingual 0.4 mg sublingual PRN PRN Angina 08/14/22 Unknown Rx tablet #25 tabs ferrous sulfate 325 mg (65 mg 325 mg PO BID supplement 01/16/23 05/14/24 History iron) tablet (Feosol) ezetimibe 10 mg tablet 10 mg PO QHS cholesterol #90 tabs 09/02/23 05/13/24 Rx hydralazine 100 mg tablet 100 mg PO TID #270 tabs 09/25/23 05/14/24 Rx pirfenidone 267 mg tablet 801 mg PO TID Pulmonary fibrosis 09/25/23 05/14/24 History carvedilol 3.125 mg tablet 3.125 mg PO BID blood pressure #60 10/17/23 05/14/24 Rx tabs atorvastatin 80 mg tablet 80 mg PO QHS for cholesterol #90 12/23/23 05/13/24 Rx TABLETS doxazosin 8 mg tablet 8 mg PO QHS #90 tabs 12/25/23 05/13/24 Rx amlodipine 10 mg tablet 10 mg PO DAILY blood pressure #90 03/03/24 04/26/24 Rx tabs yscfxilfcynf-may-cljtw acid-vit 1 tab PO QDAY VITAMIN 03/23/24 05/14/24 History K-lycop 400 mcg-20 mcg-370 mcg tablet (Men's 50 Plus Multivitamin) isosorbide mononitrate 120 mg 120 mg PO QAM this is a dose 04/07/24 05/14/24 Rx tablet,extended release 24 hr increase #90 tabs sodium bicarbonate 650 mg tablet 1,300 mg PO TID kidneys 04/12/24 05/14/24 History bumetanide 1 mg tablet 1 mg PO BID CHF 04/23/24 05/14/24 History clonidine 0.3 mg/24 hr weekly 0.3 mg transdermal Q7D #4 ea 05/03/24 Unknown Rx transdermal patch Held on 05/14/24. Instructions: BP RUNNING LOW AT HOME diltiazem HCl 180 mg 180 mg PO DAILY #30 caps 05/03/24 05/14/24 Rx capsule,extended release 24 hr sertraline 50 mg tablet 50 mg PO DAILY mental health #90 05/04/24 05/14/24 Rx tabs fluticasone propionate 50 1 spray intranasal DAILY PRN 05/14/24 05/13/24 History mcg/actuation nasal allergy symptoms spray,suspension (Flonase Allergy Relief) Allergy/AdvReac Type Severity Reaction Status Date / Time No Known Allergies Allergy Verified 04/26/24 15:55 Family History Son CAD (coronary artery disease) Brother CAD (coronary artery disease) Diabetes Brother CAD (coronary artery disease) Diabetes Other Anemia Arthritis CVA (cerebral vascular accident) Hyperlipemia Hypertension Kidney disease Skin cancer Surgical History H/O basal cell carcinoma excision (09/2018) History of left common carotid artery stent placement (2003) History of stent insertion of renal artery (10/01/19) History of angioplasty of peripheral vessel History of left heart catheterization (08/13/12) H/O coronary artery bypass surgery (08/14/12) History of herniorrhaphy History of right-sided carotid endarterectomy (05/2016) H/O colonoscopy History of knee replacement Social History Smoking Status: Former smoker Tobacco: How many years used: 15 how long ago did patient quit smokin second hand exposure: No alcohol intake: current alcohol intake frequency: holidays/special occasions only substance use type: does not use caffeine: Yes Vital Signs Vital Signs Vital Signs: 05/14/24 15:18 05/14/24 15:33 05/14/24 16:13 Temperature 97.6 F L Temperature Source Temporal Pulse Rate 77 70 Respiratory Rate 30 H 19 H Respiratory Effort Short of Breath Blood Pressure 108/46 L 154/55 H Blood Pressure Mean 66 88 Pulse Ox 76 93 Oxygen Delivery Method Nasal Cannula Nasal Cannula Oxygen Flow Rate (L/min) 8 6 05/14/24 16:54 05/14/24 17:51 05/14/24 18:54 Temperature 97.8 F 97.9 F Temperature Source Temporal Temporal Pulse Rate 70 77 70 Respiratory Rate 19 H 17 18 Respiratory Effort Blood Pressure 166/62 H 155/53 H 171/56 H Blood Pressure Mean 96 87 94 Pulse Ox 96 95 96 Oxygen Delivery Method Nasal Cannula Nasal Cannula Nasal Cannula Oxygen Flow Rate (L/min) 7 7 05/14/24 19:02 Temperature 98.2 F Temperature Source Pulse Rate 75 Respiratory Rate 22 H Respiratory Effort Blood Pressure 143/58 H Blood Pressure Mean 86 Pulse Ox 94 Oxygen Delivery Method Oxygen Flow Rate (L/min) Results Medical Records Data Attestation: I reviewed the patient's medical records Lab / Micro Data Attestation: I reviewed the patient's lab results. 05/15/24 03:18 05/15/24 03:18 Labs: Laboratory Results - last 24 hr 05/14/24 15:31: WBC 9.8, RBC 2.98 L, Hgb 9.4 L, Hct 29.2 L, MCV 98.0 H, MCH 31.5, MCHC 32.2, RDW Std Deviation 56.5 H, RDW Coeff of Lisa 15.7 H, Plt Count 275, MPV 10.1, Immature Gran % (Auto) 0.600, Neut % (Auto) 79.6 H, Lymph % (Auto) 11.5 L, [place] % (Auto) 6.7, Eos % (Auto) 1.4, Baso % (Auto) 0.2, Absolute Neuts (auto) 7.8 H, Absolute Lymphs (auto) 1.13, Nucleated RBC % 0, Sodium 143, Potassium 4.3, Chloride 103, Carbon Dioxide 24.4, Anion Gap 16 H, BUN 84 H, Creatinine 2.72 H, Est GFR (MDRD) Non-Af 23 L, BUN/Creatinine Ratio 30.7 H, Glucose 151 H, Calcium 8.5, Troponin T High Sens 117 H*, [place] [address] H 05/14/24 17:41: Troponin T Hi Sens 2 Hr 110 H* Micro: Microbiology 05/14/24 15:25 Mucosa - Nose SARS-CoV-2, Influenza & RSV (PCR) - Final ABG Data ABG results: ABG 05/14/24 16:08 Specimen Type ART Sample Site L Brach pH 7.49 H Bicarbonate Actual 31.2 H Total CO2 33 Base Excess 8 H O2 Saturation 95 O2 % 6.0 ABG pCO2 40.6 ABG pO2 67 L Jamel Test Positive O2 Delivery Device Cannula Vent Mode Not entered Imaging Radiology Impression Chest X-Ray 05/14/24 15:47 IMPRESSION: Cardiomegaly and CHF with small bilateral pleural effusions and bibasilar atelectasis. Reading Location: [facility] Assessment & Plan Assessment/Plan (1) Acute exacerbation of chronic heart failure: (2) Acute on chronic hypoxic respiratory failure: (3) Elevated troponin: (4) Chronic kidney disease, stage IV (severe): (5) Cardiorenal syndrome: QUALIFIERS: Heart failure presence: with heart failure Hypertensive chronic kidney disease stage: stage 1-4 or unspecified chronic kidney disease Qualified Code(s): I13.0 - Hypertensive heart and chronic kidney disease with heart failure and stage 1 through stage 4 chronic kidney disease, or unspecified chronic kidney disease (6) Fibrosis, idiopathic pulmonary: (7) Secondary pulmonary arterial hypertension: PLAN: Plan 1. Elevated NT pro-BNP II of 37,931 pg/mL (up from his previous baseline pro-BNP of 2,775 pg/mL last admission) with chest x-ray revealing cardiomegaly and CHF with small bilateral pleural effusions and bibasilar atelectasis consistent with AE of chronic diastolic CHF; with preserved LVEF of ~50% (05/2024) - Admit to ICU. Start bumetanide IV drip and follow strict I's & O's. Check daily BNP and CXR to follow trend. Mildly elevated d-dimer of 0.79 present on admission is actually in normal range when adjusted for age. Finally, we will consult [facility] to see tis patient on rounds in the AM for further recommendations with help appreciated in advance. 2. Tachypneic with a respiratory rate of 30 and saturating 76% on 6 L nasal cannula but then was switched to high flow oxygen with ABG revealing pH 7.49/pCO2 40.6 mmHg/pO2 67 mmHg/bicarbonate 31.2 mmol/L at 95% on 6L NC consistent with Acute-on Chronic Hypoxic Respiratory Failure due to #1 - Continue current regimen and recheck ABG in AM to follow trend to see if oxygen can be weaned. 3. Elevated troponin T levels of 117 ng/L present on admission consistent with suspected Acute Cardiac Strain attributable to #1 & #2 - Serialize troponin and start renally-dosed Lovenox. 4. CKD stage IV with elevated serum creatinine of 2.72 mg/dL, BUN of 84 mg/dL and eGFR of 23 mL/min with suspected Cardiorenal Syndrome adding to the medical complexity of #1 - #3 - Hold potentially nephrotoxic medications. Give Albumin 25g IV once and check renal indices daily to follow trend. Finally, we will reconsult nephrology to see this patient on rounds in the a.m. for further recommendations with help appreciated in advance. 5. History of pulmonary fibrosis with ILD; on pirfenidone 3 times daily, chronic hypoxic respiratory failure on ~6-8L nasal cannula at home continuous adding to the burden of disease outlined from #1 - #4 - Noted. Continue pirfenidone as previous and slowly wean supplemental oxygen as tolerated back to baseline level. 6. Recent admission here from April 26, 2024 to May 03, 2024 with initial chief complaints of shortness of breath and lower extremity edema complicated by clinical evidence of acute hypoxic respiratory failure requiring BiPAP with CTA of chest done in ER negative for PE but positive for moderate bilateral pleural effusions with patient started on Lasix for acute exacerbation of chronic diastolic CHF after one of his primary care doctors allegedly decreased his bumetanide from twice daily to once daily compounded by suspected Pneumonia with sputum cultures eventually growing out Pseudomonas aeruginosa treated initially with Zosyn and then transition of the levofloxacin - Noted. 7. CAD; s/p CABG x 4 (2012) on ISMO and as needed SL NTG - Continue 8. History of atrial fibrillation; on diltiazem but not on anticoagulation - Start renally-dosed Lovenox. 9. Essential hypertension; on amlodipine, clonidine TTS 0.3 mg patch, hydralazine and bumetanide 1 mg p.o. twice daily - Bumetanide switched to IV. Continue other antihypertensives as previous. 10. Hyperlipidemia; on ezetimibe plus atorvastatin - Maintain current regimen and check Lipid Profile. 11. Former history of tobacco abuse x ~42 years (quit ~2009) - Noted. 12. History of TIA/CVA - Noted with no evidence of recurrence at this time. 13. History of stenosis of the Left subclavian artery - Noted. 14. History of bilateral carotid artery stenosis; s/p Left common carotid artery stent (2003) and Right carotid endarterectomy (2016) - Noted. 15. History of secondary arterial pulmonary hypertension; currently not on treatment - Noted. Allegedly mild on recent Right heart catheterization. 16. FRANCISCO JAVIER; on CPAP - Patient currently on high-flow oxygen for #2 - Noted. 17. Peripheral vascular disease; s/p angioplasty of peripheral vessel with bilateral internal and external iliac stents - Noted. 18. History of varicose veins of both lower extremities - Noted. 19. History of bilateral renal artery stenosis; s/p Left/Right stent (2003/2004) - Noted. 20. History of GI bleed - Stable with no evidence report of bleeding this admission. 21. JEAN; on ferrous sulfate twice daily - Continue current therapy. 22. History of diverticulitis - Noted. 23. History of hernia; s/p repair - Noted. 24. History of basal cell carcinoma; s/p excision (2018) - Noted for the sake of completeness. 25. Depression; on sertraline - Resume sertraline as before. 26. BPH; on doxazosin - Continue doxazosin as previous. 27. Allergic rhinitis; on fluticasone propionate daily as needed - Maintain prn fluticasone. 28. History of gout - Chronic and stable with no evidence of acute flare. 29. OA; s/p TKR - Stable. 30. DVT prophylaxis - Patient started on renally-dosed Lovenox for #6 & #8. Total time: Approximately (but not less than) 75 minutes.
[2024-05-14 20:25] LABS: Troponin T High Sens 4 HR 107 ng/L (<=22)
[2024-05-14 21:52] LABS: Magnesium 2.5 mg/dL (1.5-2.2)
[2024-05-14] MEDS: Sodium Bicarbonate 650 MG Tablet 1300 MG PO (22:35)
[2024-05-14] MEDS: Piperacil/Tazobactam 3.375 GM in 0.9% Normal Saline (50mL MB+) 50 ML IV (22:35)
[2024-05-14] MEDS: Enoxaparin 60 MG/0.6 ML Syringe SC (22:36)
[2024-05-14] MEDS: Lactobacillis Acidophilus 1 CAP PO (22:36)
[2024-05-14] MEDS: Pantoprazole Sodium 40 MG Tablet PO (22:36)
[2024-05-14] MEDS: Atorvastatin Calcium 80 MG Tablet PO (22:36)
[2024-05-14] MEDS: 0.9% Saline Lock 10 ML Syringe IV (22:36)
[2024-05-14] MEDS: Ezetimibe 10 MG Tablet PO (22:36)
[2024-05-14] MEDS: hydrALAZINE 50 MG Tablet 100 MG PO (22:37)
[2024-05-14] MEDS: PIRFENIDONE 801 MG PO (22:37)
[2024-05-14] MEDS: Doxazosin 4 MG Tablet 8 MG PO (22:37)
[2024-05-14] MEDS: Aspirin 81 MG TAB.CHEW PO (22:37)
[2024-05-14] MEDS: MethylPREDNISolone 125 MG/2 ML Vial IV (22:38)
[2024-05-14 22:46] LABS: D-Dimer Quantitative (DVT/PE) 0.79 FEU/ug/m (0.27-0.49)
[2024-05-14 22:55] LABS: Lactic Acid < 1.0 mmol/L (0.0-2.0)
[2024-05-14] MEDS: Bumetanide 12.5 MG in CONTAINER,EMPTY 1 BAG 2 MG CONT INF (22:55)
[2024-05-14] MEDS: Albumin Human 25% (100 mL) 25 GM/100 ML BAG IV (22:56)
[2024-05-14 23:26] LABS: Allen Test Positive; Base Excess 7 mmol/L (-2 to +2); Bicarbonate 30.4 mmol/L (22-26); Blood Gas Specimen Type ART; Mode Not entered; O2 Delivery Device Cannula; PO2 65 mmHG (75-100); SITE L Radial; SO2 94 % (95-99); Total Carbon Dioxide 32 mmol/L; pCO2 41.8 mmHg (35-45); pH 7.47 (7.35-7.45)
[2024-05-15] VITALS (31 sets, daily range): BP systolic 122–162; BP diastolic 47–103; PULSE 70–90; RESP 12–24; TEMP 36.8–37.2; O2SAT 92–100; BMI 24.3
[2024-05-15 03:27] LABS: Absolute Lymphocyte Count 0.33 X10^3/uL (0.83-4.51); Absolute Neutrophil Count 7.1 X10^3/uL (2.0-7.7); Basophil# 0.02 X10^3/uL; Basophil% 0.3 % (0-1); Eosinophil# 0.03 X10^3/uL; Eosinophils% 0.4 % (0-5); Hematocrit 26.6 % (40-54); Hemoglobin 8.2 g/dL (13.0-16.5); Lymphocyte # 0.33 X10^3/ul (0.83-4.51); Lymphocyte % 4.4 % (19-41); Mean Corp Hgb Conc 30.8 g/dL (32-36); Mean Corpuscular Hgb 30.5 pg (27.0-32.0); Mean Corpuscular Volume 98.9 fL (80-94); Mean Platelet Vol. 10.3 fl (6.2-12.0); Monocyte# 0.09 X10^3/uL; Monocyte% 1.2 % (0-10); NRBC Flagged by Analyzer 0 % (0-5); Neutrophil # 7.05 X10^3/uL (2.7-7.7); Neutrophil % 93.2 % (47-70); POSITIVE DIFFERENTIAL YES; Platelet Count 234 K/mm3 (150-450); RBC Distribution Width CV 15.6 % (11.6-14.6); RBC Distribution Width SD 56.2 fl (35.1-43.9); Red Blood Count 2.69 M/mm3 (4.6-6.2); White Blood Count 7.6 K/mm3 (4.4-11.0)
[2024-05-15 03:54] LABS: ALB/GLOB Ratio 1.2 RATIO (0.9-2.4); AST(SGOT) 27 U/L (<=37); Alanine Aminotransfer ALT/SGPT 24 U/L (<=46); Albumin, Serum 3.3 g/dL (3.4-4.8); Alkaline Phosphatase 66 U/L (40-129); Anion Gap 14 (5-15); BUN 78 mg/dL (4-19); BUN/Creat Ratio 29.8 RATIO (10-20); Carbon Dioxide 25.9 mmol/L (21.0-32.0); Chloride 105 mmol/L (98-108); Creatinine, Serum 2.62 mg/dL (0.70-1.20); EST Glomerular Filtration Rate 24 (>60); Estimated Creatinine Clearance 22.48 ml/min (50-250); Globulin 2.8 g/dL (2.2-4.2); Glucose 182 mg/dL (70-99); Phosphorus 2.3 mg/dL (2.7-4.5); Protein, Total 6.1 g/dL (5.9-8.4); Sodium Level 145 mmol/L (133-145); Total Bilirubin 0.29 mg/dL (0.00-1.30)
[2024-05-15 04:05] LABS: Pro- Brain NATRIURETIC PEPTIDE 35921 pg/mL (<=1800)
[2024-05-15] MEDS: Piperacil/Tazobactam 3.375 GM in 0.9% Normal Saline (50mL MB+) 50 ML IV ×3 (05:13→21:14)
[2024-05-15] MEDS: Sodium Bicarbonate 650 MG Tablet 1300 MG PO ×3 (05:13→21:13)
[2024-05-15] MEDS: hydrALAZINE 50 MG Tablet 100 MG PO ×3 (05:13→21:13)
--- NOTE | 2024-05-15 05:30 | RAD_ITS ---
PROCEDURE: CHEST 1 VIEW (PORTABLE) 05/15/2024 REASON FOR EXAM: AE CHF WITH PULMONARY FIBROSIS AND RESPIRATORY SANDY TECHNIQUE: Frontal view of the chest. COMPARISON: Chest x-ray dated 05/14/2024. FINDINGS: The cardiac silhouette is prominent. Diffuse bilateral interstitial opacities noted. This may represent underlying pulmonary fibrosis. There is increased opacity however within the lungs, when compared to examination from 05/14/2024. There are bilateral pleural effusions present. No pneumothorax. Median sternotomy wires are present, likely from prior CABG surgery. Stent is noted overlying the left carotid region. RAD/Chest 1 View (Portable) IMPRESSION: Increasing bilateral airspace opacities may suggest pulmonary edema in the sett ing of underlying pulmonary fibrosis. Follow-up until resolution is recommended. Reading Location: [id number]
[2024-05-15 05:34] LABS: Allen Test Positive; Base Excess 3 mmol/L (-2 to +2); Bicarbonate 26.5 mmol/L (22-26); Blood Gas Specimen Type ART; Mode Not entered; O2 Delivery Device Cannula; PO2 44 mmHG (75-100); SITE R Radial; SO2 82 % (95-99); Total Carbon Dioxide 28 mmol/L; pCO2 36.5 mmHg (35-45); pH 7.47 (7.35-7.45)
[2024-05-15] MEDS: PIRFENIDONE 801 MG PO ×3 (08:22→17:16)
[2024-05-15] MEDS: Multivitamins,Ther W-Minerals Tablet 1 TABLET PO (08:22)
[2024-05-15] MEDS: Carvedilol 3.125 MG TABLET PO ×2 (08:22→17:17)
[2024-05-15] MEDS: dilTIAZem CD 180 MG Capsule PO (10:33)
[2024-05-15] MEDS: Lactobacillis Acidophilus 1 CAP PO ×4 (10:33→21:13)
[2024-05-15] MEDS: Pantoprazole Sodium 40 MG Tablet PO (10:33)
[2024-05-15] MEDS: Enoxaparin 60 MG/0.6 ML Syringe SC (10:34)
[2024-05-15] MEDS: amLODIPine 10 MG Tablet PO (10:34)
[2024-05-15] MEDS: MethylPREDNISolone 125 MG/2 ML Vial 60 MG IV ×2 (10:35→21:13)
[2024-05-15] MEDS: Sertraline 50 MG Tablet PO (10:35)
--- NOTE | 2024-05-15 10:53 | PN_ITS ---
Subjective Subjective Patient seen and examined. He had no active complaints and said he felt his breathing was improving. He remains on Airvo at 40L/min with FiO2 of 50%. He remains on bumex drip. Review of systems is otherwise negative. Objective Data Objective Data Vital Signs: Vital Signs Temp Pulse Resp BP Pulse Ox O2 Del Method O2 Flow Rate 98.9 F 80 23 H 154/47 H 98 Airvo 40 05/15/24 08:00 05/15/24 09:00 05/15/24 09:00 05/15/24 09:00 05/15/24 09:02 05/15/24 09:02 05/15/24 09:02 FiO2 50 05/15/24 09:02 Oxygen Flow Rate (L/min) 40 Oxygen Delivery Method Airvo Weight: 160 lb 4.417 oz Body Mass Index (BMI) 24.3 Intake & Output: Intake and Output for Last 24 Hours 05/13/24 05/14/24 05/15/24 23:59 23:59 23:59 Intake Total 200 / 200 418.17 / 418.17 Output Total 1050 / 1050 Balance 200 / 200 -631.83 / -631.83 Lab / Micro Data 05/15/24 03:18 05/15/24 03:18 Labs: Laboratory Results - last 24 hr 05/14/24 15:31: WBC 9.8, RBC 2.98 L, Hgb 9.4 L, Hct 29.2 L, MCV 98.0 H, MCH 31.5, MCHC 32.2, RDW Std Deviation 56.5 H, RDW Coeff of Lisa 15.7 H, Plt Count 275, MPV 10.1, Immature Gran % (Auto) 0.600, Neut % (Auto) 79.6 H, Lymph % (Auto) 11.5 L, [place] % (Auto) 6.7, Eos % (Auto) 1.4, Baso % (Auto) 0.2, Absolute Neuts (auto) 7.8 H, Absolute Lymphs (auto) 1.13, Nucleated RBC % 0, Sodium 143, Potassium 4.3, Chloride 103, Carbon Dioxide 24.4, Anion Gap 16 H, BUN 84 H, C reatinine 2.72 H, Est GFR (MDRD) Non-Af 23 L, BUN/Creatinine Ratio 30.7 H, G lucose 151 H, Calcium 8.5, Troponin T High Sens 117 H*, [place] [address] H 05/14/24 17:41: Troponin T Hi Sens 2 Hr 110 H* 05/14/24 19:39: Magnesium 2.5 H, Troponin T Hi Sens 4Hr 107 H* 05/14/24 22:15: D-Dimer Quant (PE/DVT) 0.79 H*, Lactic Acid < 1.0 05/15/24 03:18: WBC 7.6, RBC 2.69 L, Hgb 8.2 L, Hct 26.6 L, MCV 98.9 H, MCH 30.5, MCHC 30.8 L, RDW Std Deviation 56.2 H, RDW Coeff of Lisa 15.6 H, Plt Count 234, MPV 10.3, Immature Gran % (Auto) 0.500, Neut % (Auto) 93.2 H, Lymph % (Auto) 4.4 L, [place] % (Auto) 1.2, Eos % (Auto) 0.4, Baso % (Auto) 0.3, Absolute Neuts (auto) 7.1, Absolute Lymphs (auto) 0.33 L, Nucleated RBC % 0, Sodium 145, Potassium 4.0, Chloride 105, Carbon Dioxide 25.9, Anion Gap 14, BUN 78 H, C reatinine 2.62 H, Estim Creat Clear Calc 22.48 L, Est GFR (MDRD) Non-Af 24 L, B UN/Creatinine Ratio 29.8 H, Glucose 182 H, Calcium 8.0, Phosphorus 2.3 L, Total Bilirubin 0.29, AST 27, ALT 24, Alkaline Phosphatase 66, [place] [address] H, Total Protein 6.1, Albumin 3.3 L, Globulin 2.8, Albumin/Globulin Ratio 1.2, TSH 2.680 Micro: Microbiology 05/14/24 15:25 Mucosa - Nose SARS-CoV-2, Influenza & RSV (PCR) - Final ABG Data ABG results: ABG 05/14/24 05/14/24 05/15/24 16:08 23:22 05:31 Specimen Type ART ART ART Sample Site L Brach L Radial R Radial pH 7.49 H 7.47 H 7.47 H Bicarbonate Actual 31.2 H 30.4 H 26.5 H Total CO2 33 32 28 Base Excess 8 H 7 H 3 H O2 Saturation 95 94 L 82 L O2 % 6.0 8.0 6.0 ABG pCO2 40.6 41.8 36.5 ABG pO2 67 L 65 L 44 L Jamel Test Positive Positive Positive O2 Delivery Device Cannula Cannula Cannula Vent Mode Not entered Not entered Not entered Radiography Diagnostic Testing: Radiology Impression Chest X-Ray 05/14/24 15:47 IMPRESSION: Cardiomegaly and CHF with small bilateral pleural effusions and bibasilar atelectasis. Reading Location: [id number] Chest X-Ray 05/15/24 05:30 IMPRESSION: Increasing bilateral airspace opacities may suggest pulmonary edema in the setting of underlying pulmonary fibrosis. Follow-up until resolution is recommended. Reading Location: [id number] Physical Exam Const alert, oriented x3, no apparent distress and well nourished General Appearance: cooperative and well developed HEENT normocephalic, head/scalp atraumatic, moist oral mucous membranes and oropharynx normal Eyes PERRL and EOMs intact bilaterally Neck supple and no JVD Lymph Lymphatic: no lymphadenopathy noted and no lymphedema noted Resp Resp Narrative: diminished breath sounds bibasally, no wheezing, few crackles. On Airvo with FiO2 of 50% and 40L/min. Cardio regular rate, regular rhythm, S1 normal heart sound, S2 normal heart sound and no murmurs GI normal to inspection, nondistended, normoactive bowel sounds, soft to palpation, non-tender and non-distended Extremity normal capillary refill, no clubbing, cyanosis or edema and no calf tenderness General Extremity: no tenderness to palpation of joints or extremities Skin General Skin Exam: no breakdown Neuro CN's II-XII intact bilaterally, no focal motor deficits and no sensory deficits noted Motor Exam: strength 5/5 throughout and general weakness Psych thought process normal and cooperative Appearance: appropriate Assessment & Plan Assessment/Plan (1) Acute on chronic hypoxic respiratory failure: (2) Acute exacerbation of chronic heart failure: (3) Chronic kidney disease, stage IV (severe): PLAN: Plan #Acute on chronic hypoxic respiratory failure due to acute on chronic exacerbation of HFrEF * admitted with a complaint Of shortness of breath. * proBNP was elevated at over 37,000. Chest x-ray showed evidence of fluid overload. * on bumex drip. * titrate oxygen to maintain sats >90%; breathing treatment with bronchodilators. * CXR shoewd cardiomegaly and CHF with small bilateral pleural effusions and bibasila atelectasis * 2D echo: * cardiology consulted; await recs. * #Elevated troponins, likely due to demand ischemia from heart failure. 2D echo ordered and pending. Cardiology consult. Acute on chronic anemia: * Hemoglobin is 8.2. Was 9.4 yesterday. * Continue to monitor closely and transfuse if Hb is less than 7. * He does have a history of GI bleed so if hemoglobin continues to drop further we will check stool for occult blood and iron profile. * #CKD IV: Cr was 2.72 on admission. Concern for cardiorenal syndrome. nephrology consulted. Await recs. #History of pulmonary fibrosis * on pirfenidone. * #CAD s/p CABG x 4 * * #History of A-fib: On Cardizem. Not on anticoagulation due to history of GI bleed #Benign essential hypertension: Probably pending clonidine, hydralazine and Bumex. #Hyperlipidemia: On ezetimibe and statin. #History of bilateral carotid artery stenosis * s/p left common carotid artery stent and right carotid endarterectomy. * #Depression: On sertraline #BPH: On doxazosin # History of CAD: Stable DVT prophylaxis: On renally dosed Lovenox. Charges/Coding Visit Charges Inpatient E&M: [id number] [facility] L3
[2024-05-15] MEDS: Ferrous Sulfate 325 MG Tablet PO ×2 (11:38→17:16)
--- NOTE | 2024-05-15 11:40 | PCM.CONS.R ---
Assessment & Plan Assessment/Plan (1) Chronic kidney disease, stage IV (severe): PLAN: Abbreviated version ? ? Right atrial pressure (mean) 4.00 mmHg Mean pulmonary artery pressure 27.00 mmHg Pulmonary artery occlusion pressure (end-expiration) 14.00 mmHg Cardiac index (thermodilution) 3.13 L/min/m2 Pulmonary vascular resistance 2.32 Wood Units Mixed venous oxyhemoglobin 67.00 % ? Summary: Resting values consistent with mild precapillary PH with preserved cardiac index in supine position. ? Due to left atrial enlargement and suspicion for occult diastolic dysfunction/postcapillary disease, a 500 ml NS fluid challenge was administered. The mPAP khurram from 27 to 35 and the PAWP from 14 to 22 (V-wave up to 30 mmHg) consistent with occult diastolic dysfunction and combined pre/postcapillary PH Cr is close to baseline History of IPF - follows with pulmonology. ? pulmonary HTN - recent right heart cath 05/05/24. see report above He was supposed to enroll in trial for IPF at [facility] as per last pulmonology note clinically he does not look overloaded. not much edema. 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 He is well known to me from office. History of CKD stage 3B. baseline cr was around 1.8 or so. recently low 2s history of Renal A stenosis. previous stenting. repeat dopplers negative recently recent admission for dyspnea. diuresed felt better sees pulmonology at [facility] Medical History (Updated 05/15/24 @ 02:[address] Simón Vasques, DO) Chronic kidney disease, stage IV (severe) Elevated troponin Pulmonary fibrosis History of pulmonary fibrosis History of chronic kidney disease History of atrial fibrillation Hyperkalemia Weight loss, non-intentional Stage III chronic kidney disease BPH (benign prostatic hyperplasia) Insomnia Anemia GI bleed Anxiety Depression Kidney disease Former smoker On home oxygen therapy Atrial fibrillation Coronary artery disease Hypertension Respiratory failure with hypoxia CHF (congestive heart failure) Hypoxia Hemoptysis Hypoxia Interstitial lung disease Chronic cough Flu vaccine need Increased sputum production Generalized anxiety disorder Diarrhea Varicose veins of both lower extremities Arthritis Secondary pulmonary arterial hypertension FRANCISCO JAVIER (obstructive sleep apnea) Pleural effusion due to CHF (congestive heart failure) (08/27/19) Diverticulitis Hypoxia Elevated troponin (04/07/19) PND (post-nasal drip) Transient ischemic attack Anemia in chronic kidney disease (CKD) CVA (cerebral vascular accident) Stenosis of left subclavian artery Chronic kidney disease, stage 3 Renal artery stenosis Paroxysmal atrial flutter Bilateral carotid artery stenosis Peripheral vascular occlusive disease Atherosclerosis of coronary artery of [place] heart without angina pectoris Essential (primary) hypertension Hyperlipidemia Chronic diastolic (congestive) heart failure GERD (gastroesophageal reflux disease) Gout Arthritis Home Medications ?Medication ?Instructions ?Recorded ?Last Taken ?Type aspirin 81 mg chewable tablet 81 mg PO QHS Heart 08/03/19 05/13/24 History nitroglycerin 0.4 mg sublingual 0.4 mg sublingual PRN PRN Angina 08/14/22 Unknown Rx tablet #25 tabs ferrous sulfate 325 mg (65 mg 325 mg PO BID supplement 01/16/23 05/14/24 History iron) tablet (Feosol) ezetimibe 10 mg tablet 10 mg PO QHS cholesterol #90 tabs 09/02/23 05/13/24 Rx hydralazine 100 mg tablet 100 mg PO TID #270 tabs 09/25/23 05/14/24 Rx pirfenidone 267 mg tablet 801 mg PO TID Pulmonary fibrosis 09/25/23 05/14/24 History carvedilol 3.125 mg tablet 3.125 mg PO BID blood pressure #60 10/17/23 05/14/24 Rx tabs atorvastatin 80 mg tablet 80 mg PO QHS for cholesterol #90 12/23/23 05/13/24 Rx TABLETS doxazosin 8 mg tablet 8 mg PO QHS #90 tabs 12/25/23 05/13/24 Rx amlodipine 10 mg tablet 10 mg PO DAILY blood pressure #90 03/03/24 04/26/24 Rx tabs [id number] acid-vit 1 tab PO QDAY VITAMIN 03/23/24 05/14/24 History K-lycop 400 mcg-20 mcg-370 mcg tablet (Men's 50 Plus Multivitamin) isosorbide mononitrate 120 mg 120 mg PO QAM this is a dose 04/07/24 05/14/24 Rx tablet,extended release 24 hr increase #90 tabs sodium bicarbonate 650 mg tablet 1,300 mg PO TID kidneys 04/12/24 05/14/24 History bumetanide 1 mg tablet 1 mg PO BID CHF 04/23/24 05/14/24 History clonidine 0.3 mg/24 hr weekly 0.3 mg transdermal Q7D #4 ea 05/03/24 Unknown Rx transdermal patch Held on 05/14/24. Instructions: BP RUNNING LOW AT HOME diltiazem HCl 180 mg 180 mg PO DAILY #30 caps 05/03/24 05/14/24 Rx capsule,extended release 24 hr sertraline 50 mg tablet 50 mg PO DAILY mental health #90 05/04/24 05/14/24 Rx tabs fluticasone propionate 50 1 spray intranasal DAILY PRN 05/14/24 05/13/24 History mcg/actuation nasal allergy symptoms spray,suspension (Flonase Allergy Relief) Allergy/AdvReac Type Severity Reaction Status Date / Time No Known Allergies Allergy Verified 04/26/24 15:55 Family History Son CAD (coronary artery disease) Brother CAD (coronary artery disease) Diabetes Brother CAD (coronary artery disease) Diabetes Other Anemia Arthritis CVA (cerebral vascular accident) Hyperlipemia Hypertension Kidney disease Skin cancer Surgical History H/O basal cell carcinoma excision (09/2018) History of left common carotid artery stent placement (2003) History of stent insertion of renal artery (10/01/19) History of angioplasty of peripheral vessel History of left heart catheterization (08/13/12) H/O coronary artery bypass surgery (08/14/12) History of herniorrhaphy History of right-sided carotid endarterectomy (05/2016) H/O colonoscopy History of knee replacement Social History Smoking Status: Former smoker Tobacco: How many years used: 15 how long ago did patient quit smokin second hand exposure: No alcohol intake: current alcohol intake frequency: holidays/special occasions only substance use type: does not use caffeine: Yes ROS ROS Narrative negative except above Physical Exam Narrative Alert awake oriented x 3 no obvious distress no pallor no icterus no JVD s1s2 no murmurs lungs clear abdomen soft no organomegaly no edema no cyanosis Lab / Micro Data 05/15/24 03:18 05/15/24 03:18 Labs: Laboratory Results - last 24 hr 05/14/24 15:31: WBC 9.8, RBC 2.98 L, Hgb 9.4 L, Hct 29.2 L, MCV 98.0 H, MCH 31.5, MCHC 32.2, RDW Std Deviation 56.5 H, RDW Coeff of Lisa 15.7 H, Plt Count 275, MPV 10.1, Immature Gran % (Auto) 0.600, Neut % (Auto) 79.6 H, Lymph % (Auto) 11.5 L, Starr % (Auto) 6.7, Eos % (Auto) 1.4, Baso % (Auto) 0.2, Absolute Neuts (auto) 7.8 H, Absolute Lymphs (auto) 1.13, Nucleated RBC % 0, Sodium 143, Potassium 4.3, Chloride 103, Carbon Dioxide 24.4, Anion Gap 16 H, BUN 84 H, Creatinine 2.72 H, Est GFR (MDRD) Non-Af 23 L, BUN/Creatinine Ratio 30.7 H, Glucose 151 H, Calcium 8.5, Troponin T High Sens 117 H*, [place] [address] H 05/14/24 17:41: Troponin T Hi Sens 2 Hr 110 H* 05/14/24 19:39: Magnesium 2.5 H, Troponin T Hi Sens 4Hr 107 H* 05/14/24 22:15: D-Dimer Quant (PE/DVT) 0.79 H*, Lactic Acid < 1.0 05/15/24 03:18: WBC 7.6, RBC 2.69 L, Hgb 8.2 L, Hct 26.6 L, MCV 98.9 H, MCH 30.5, MCHC 30.8 L, RDW Std Deviation 56.2 H, RDW Coeff of Lisa 15.6 H, Plt Count 234, MPV 10.3, Immature Gran % (Auto) 0.500, Neut % (Auto) 93.2 H, Lymph % (Auto) 4.4 L, Starr % (Auto) 1.2, Eos % (Auto) 0.4, Baso % (Auto) 0.3, Absolute Neuts (auto) 7.1, Absolute Lymphs (auto) 0.33 L, Nucleated RBC % 0, Sodium 145, Potassium 4.0, Chloride 105, Carbon Dioxide 25.9, Anion Gap 14, BUN 78 H, Creatinine 2.62 H, Estim Creat Clear Calc 22.48 L, Est GFR (MDRD) Non-Af 24 L, BUN/Creatinine Ratio 29.8 H, Glucose 182 H, Calcium 8.0, Phosphorus 2.3 L, Total Bilirubin 0.29, AST 27, ALT 24, Alkaline Phosphatase 66, [place] [address] H, Total Protein 6.1, Albumin 3.3 L, Globulin 2.8, Albumin/Globulin Ratio 1.2, TSH 2.680 Micro: Microbiology 05/14/24 15:25 Mucosa - Nose SARS-CoV-2, Influenza & RSV (PCR) - Final ABG Data ABG results: ABG 05/14/24 05/14/24 05/15/24 16:08 23:22 05:31 Specimen Type ART ART ART Sample Site L Brach L Radial R Radial pH 7.49 H 7.47 H 7.47 H Bicarbonate Actual 31.2 H 30.4 H 26.5 H Total CO2 33 32 28 Base Excess 8 H 7 H 3 H O2 Saturation 95 94 L 82 L O2 % 6.0 8.0 6.0 ABG pCO2 40.6 41.8 36.5 ABG pO2 67 L 65 L 44 L Jamel Test Positive Positive Positive O2 Delivery Device Cannula Cannula Cannula Vent Mode Not entered Not entered Not entered Imaging Radiology Impression Chest X-Ray 05/14/24 15:47 IMPRESSION: Cardiomegaly and CHF with small bilateral pleural effusions and bibasilar atelectasis. Reading Location: [id number] Chest X-Ray 05/15/24 05:30 IMPRESSION: Increasing bilateral airspace opacities may suggest pulmonary edema in the setting of underlying pulmonary fibrosis. Follow-up until resolution is recommended. Reading Location: [id number]
--- NOTE | 2024-05-15 12:15 | CT_ITS ---
PROCEDURE: CHEST WITHOUT CONTRAST 05/15/2024 REASON FOR EXAM: FLARE UP OF INTERSTITIAL PULMONARY FIBROSIS TECHNIQUE: Chest CT without contrast. Coronal and Sagittal reconstruction series were provided. One or more dose reduction techniques were used (e.g., Automated exposure control, adjustment of the mA and/or kV according to patient size, use of iterative reconstruction technique COMPARISON: Comparison is made with prior study dated April 26 2024. RADIATION DOSE SUMMARY: CTDlvol: 9.5 mGy DLP: 351.42 mGycm FINDINGS: Hardware: EKG electrodes are seen. Lymph nodes: Small benign-appearing mediastinal lymph nodes. Heart and Vasculature: Prior CABG. Atherosclerotic calcifications of the thoracic aorta. Thoracic aorta and pulmonary arteries have normal contours; noncontrast technique limits evaluation. Coronary Artery Calcifications: Present Lungs and Airways: Bilateral pleural effusions right greater than left with the dependent bibasilar atelectasis superimposed on chronic interstitial scarring. Fluid is seen in the right minor fissure. Focal scarring is seen in the peripheral aspect of both upper lobes more prominent on the right side. Upper Abdomen: Unremarkable Bones: Degenerative changes of the thoracic spine. CT/Chest without Contrast IMPRESSION: Persistent bilateral pleural effusions right greater than left with underlying compressive atelectasis superimposed on chronic interstitial scarring. Reading Location: [facility]
--- NOTE | 2024-05-15 14:28 | CASEMGMT ---
JEROD HART Readmission Note: Pt admitted to [facility] 04/26 to 05/03/24 with initial chief complaints of shortness of breath and lower extremity edema complicated by clinical evidence of acute hypoxic respiratory failure requiring BiPAP. Pt had moderate bilateral pleural effusions. 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 Pt now re-presents to [facility] complaining of shortness of breath on 05/14/24. Pt reports he gets his O2 through [employer], pt states he followed up with pulmonary rehab and had 2 sessions. Pt had a heart catheterization. Pt states the doctor discussed transferring him to [facility], pt is upset and would like to stay here if possible. Follow pt for safe DC planning.
--- NOTE | 2024-05-15 15:47 | CHAPLAIN ---
Type of Pastoral Visit _x__ Initial Visit ___ Follow-up Visit ___ On-call Visit ___ General Patient Visit ___ Spiritual Assessment ___ Family Conference ___ Bereavement ___ Rapid Response ___ Code Blue ___ Other (describe below) Pastoral Care Referral From _x__ Patient ___ Family ___ Nurse ___ Physician ___ Auto Parker ___ Zoo Keeper ___ Other (describe below) Sacrament/Intervention _x__ Active listening ___ Anointing ___ Methodist ___ Bereavement ___ Communion _x__ Lisa exploration ___ ___ Life review _x__ Prayer ___ Reconciliation ___ Sacrament of Sick ___ Supportive presence ___ Wedding ___ Other (describe below) Pastoral Comments patient has been seen frequently in previous admissions; spouse gives example of how God answered prayers for the patient on a previous admission when he was unresponsive and now patient has recovered from that; prayer and presence given
[2024-05-15] MEDS: Bumetanide 12.5 MG in CONTAINER,EMPTY 1 BAG 2 MG CONT INF (17:46)
[2024-05-15] MEDS: Aspirin 81 MG TAB.CHEW PO (21:13)
[2024-05-15] MEDS: Atorvastatin Calcium 80 MG Tablet PO (21:13)
[2024-05-15] MEDS: Doxazosin 4 MG Tablet 8 MG PO (21:13)
[2024-05-15] MEDS: Ezetimibe 10 MG Tablet PO (21:14)
[2024-05-16] VITALS (29 sets, daily range): BP systolic 105–160; BP diastolic 39–93; PULSE 52–95; RESP 10–22; TEMP 36.6–36.8; O2SAT 90–100; BMI 27.0
[2024-05-16] MEDS: Piperacil/Tazobactam 3.375 GM in 0.9% Normal Saline (50mL MB+) 50 ML IV ×3 (06:41→20:31)
[2024-05-16] MEDS: Sodium Bicarbonate 650 MG Tablet 1300 MG PO ×3 (06:42→21:19)
[2024-05-16] MEDS: 0.9% Saline Lock 10 ML Syringe IV ×2 (06:44→21:19)
[2024-05-16 06:56] LABS: Absolute Lymphocyte Count 0.61 X10^3/uL (0.83-4.51); Absolute Neutrophil Count 7.7 X10^3/uL (2.0-7.7); Hematocrit 27.6 % (40-54); Hemoglobin 8.7 g/dL (13.0-16.5); Lymphocyte # 0.61 X10^3/ul (0.83-4.51); Lymphocyte % 7.2 % (19-41); Mean Corp Hgb Conc 31.5 g/dL (32-36); Mean Corpuscular Hgb 30.9 pg (27.0-32.0); Mean Corpuscular Volume 97.9 fL (80-94); Mean Platelet Vol. 10.4 fl (6.2-12.0); Monocyte# 0.16 X10^3/uL; Monocyte% 1.9 % (0-10); NRBC Flagged by Analyzer 0 % (0-5); Neutrophil # 7.65 X10^3/uL (2.7-7.7); Neutrophil % 90.3 % (47-70); Platelet Count 268 K/mm3 (150-450); RBC Distribution Width CV 15.3 % (11.6-14.6); Red Blood Count 2.82 M/mm3 (4.6-6.2); White Blood Count 8.5 K/mm3 (4.4-11.0)
[2024-05-16 07:24] LABS: Anion Gap 16 (5-15); BUN 74 mg/dL (4-19); BUN/Creat Ratio 24.8 RATIO (10-20); Calcium,Total 8.1 mg/dL (7.6-11.0); Carbon Dioxide 26.2 mmol/L (21.0-32.0); Chloride 101 mmol/L (98-108); Creatinine, Serum 2.99 mg/dL (0.70-1.20); EST Glomerular Filtration Rate 21 (>60); Glucose 165 mg/dL (70-99); Potassium 4.4 mmol/L (3.3-5.1); Sodium Level 143 mmol/L (133-145)
[2024-05-16] MEDS: Carvedilol 3.125 MG TABLET PO ×2 (08:08→16:46)
[2024-05-16] MEDS: PIRFENIDONE 801 MG PO ×3 (08:08→16:47)
[2024-05-16] MEDS: Multivitamins,Ther W-Minerals Tablet 1 TABLET PO (08:09)
[2024-05-16] MEDS: amLODIPine 10 MG Tablet PO (08:09)
[2024-05-16] MEDS: Lactobacillis Acidophilus 1 CAP PO ×4 (08:09→21:18)
[2024-05-16] MEDS: Enoxaparin 60 MG/0.6 ML Syringe SC (08:09)
[2024-05-16] MEDS: Pantoprazole Sodium 40 MG Tablet PO (08:10)
[2024-05-16] MEDS: dilTIAZem CD 180 MG Capsule PO (08:10)
[2024-05-16] MEDS: MethylPREDNISolone 125 MG/2 ML Vial 60 MG IV ×2 (08:11→21:18)
[2024-05-16] MEDS: Sertraline 50 MG Tablet PO (08:11)
--- NOTE | 2024-05-16 10:31 | PN_ITS ---
Subjective Subjective Patient seen and examined. He is feeling better today. He is off Airvo and down to 8 L of oxygen. He says he feels like his breathing has improved. He is still coughing. Review of systems otherwise negative. Objective Data Objective Data Vital Signs: Vital Signs Temp Pulse Resp BP Pulse Ox O2 Del Method O2 Flow Rate 98.2 F 82 20 H 151/63 H 99 High Flow 8 05/16/24 08:00 05/16/24 10:00 05/16/24 10:00 05/16/24 10:00 05/16/24 10:00 05/16/24 10:00 05/16/24 10:00 FiO2 50 05/15/24 12:00 Oxygen Flow Rate (L/min) 8 Oxygen Delivery Method High Flow Weight: 178 lb 9.191 oz Body Mass Index (BMI) 27.0 Intake & Output: Intake and Output for Last 24 Hours 05/14/24 05/15/24 05/16/24 23:59 23:59 23:59 Intake Total 200 / 200 486.53 / 486.53 170 / 170 Output Total 2600 / 2600 600 / 600 Balance 200 / 200 -2113.47 / -2113.47 -430 / -430 Lab / Micro Data 05/16/24 06:40 05/16/24 06:40 Labs: Laboratory Results - last 24 hr 05/16/24 06:40: WBC 8.5, RBC 2.82 L, Hgb 8.7 L, Hct 27.6 L, MCV 97.9 H, MCH 30.9, MCHC 31.5 L, RDW Std Deviation 55.0 H, RDW Coeff of Lisa 15.3 H, Plt Count 268, MPV 10.4, Immature Gran % (Auto) 0.600, Neut % (Auto) 90.3 H, Lymph % (Auto) 7.2 L, Divide % (Auto) 1.9, Eos % (Auto) 0.0, Baso % (Auto) 0.0, Absolute Neuts (auto) 7.7, Absolute Lymphs (auto) 0.61 L, Nucleated RBC % 0, Sodium 143, Potassium 4.4, Chloride 101, Carbon Dioxide 26.2, Anion Gap 16 H, BUN 74 H, C reatinine 2.99 H, Estim Creat Clear Calc 19.70 L, Est GFR (MDRD) Non-Af 21 L, B UN/Creatinine Ratio 24.8 H, Glucose 165 H, Calcium 8.1 Micro: Microbiology 05/14/24 15:25 Mucosa - Nose SARS-CoV-2, Influenza & RSV (PCR) - Final Radiography Diagnostic Testing: Radiology Impression Chest CT 05/15/24 12:15 IMPRESSION: Persistent bilateral pleural effusions right greater than left with underlying compressive atelectasis superimposed on chronic interstitial scarring. Reading Location: [facility] Physical Exam Const alert, oriented x3, no apparent distress and well nourished General Appearance: cooperative and well developed HEENT normocephalic, head/scalp atraumatic, moist oral mucous membranes and oropharynx normal Eyes PERRL and EOMs intact bilaterally Neck supple and no JVD Lymph Lymphatic: no lymphadenopathy noted and no lymphedema noted Resp Resp Narrative: diminished breath sounds bibasally, no wheezing, few crackles. on 8L of oxygen by nasal canula Cardio regular rate, regular rhythm, S1 normal heart sound, S2 normal heart sound and no murmurs GI normal to inspection, nondistended, normoactive bowel sounds, soft to palpation, non-tender and non-distended Extremity normal capillary refill, no clubbing, cyanosis or edema and no calf tenderness General Extremity: no tenderness to palpation of joints or extremities Skin General Skin Exam: no breakdown Neuro CN's II-XII intact bilaterally, no focal motor deficits and no sensory deficits noted Motor Exam: strength 5/5 throughout and general weakness Psych thought process normal and cooperative Appearance: appropriate Assessment & Plan Assessment/Plan (1) Acute on chronic hypoxic respiratory failure: (2) Acute exacerbation of chronic heart failure: (3) Chronic kidney disease, stage IV (severe): PLAN: Plan #Acute on chronic hypoxic respiratory failure due to acute on chronic exacerbation of HFrEF * admitted with a complaint Of shortness of breath. * proBNP was elevated at over 37,000. Chest x-ray showed evidence of fluid overload. * remains on bumex drip. * titrate oxygen to maintain sats >90%; breathing treatment with bronchodilators. * CXR showed cardiomegaly and CHF with small bilateral pleural effusions and bibasila atelectasis * he had a 2D echo done on 04/27/2024 which showed EF of 50-55% and unable to assess diastolic dysfunction, with no regional wall motion abnormalities noted. * he is in negative balance by 2.29L * #Elevated troponins, likely due to demand ischemia from heart failure. * 2D echo from 04/28/2024 as above. * Currently stable and down to 8 L of oxygen. May have been due to demand ischemia from heart failure. * Cardiology consulted. Still awaiting cardiology evaluation. Acute on chronic anemia: * Hemoglobin is 8.7 today. . * Continue to monitor closely and transfuse if Hb is less than 7. * He does have a history of GI bleed * #CKD IV: Cr today is up to 2.99, from 2.62 yesterday. * Since he is trending upwards and oxygen requirement is improving we will take him off the bumex drip for today and see. * nephrology on board. * #History of pulmonary fibrosis * on pirfenidone. * counseled that he will benefit from close follow up with his pulmonology team at [facility] for evaluation of his pulmonary fibrosis. * #CAD s/p CABG x 4 * on aspirin, high intensity statin, ezetemibe and carvedilol * #History of A-fib: On Cardizem and metoprolol. Not on anticoagulation due to history of GI bleed #Benign essential hypertension: Probably pending clonidine, hydralazine and Bumex. #Hyperlipidemia: On ezetimibe and statin. #History of bilateral carotid artery stenosis * s/p left common carotid artery stent and right carotid endarterectomy. * #Depression: On sertraline #BPH: On doxazosin # History of CAD: Stable DVT prophylaxis: On renally dosed Lovenox. Charges/Coding Visit Charges Inpatient E&M: 79883 Subs Hosp L2
[2024-05-16] MEDS: Finasteride 5 MG Tablet PO (11:25)
[2024-05-16] MEDS: Ferrous Sulfate 325 MG Tablet PO ×2 (11:26→16:46)
--- NOTE | 2024-05-16 12:53 | PCM.CONS.C ---
Assessment & Plan Assessment/Plan (1) Acute on chronic hypoxic respiratory failure: PLAN: This is likely from a combination of pulmonary fibrosis and CHF with preserved EF. He still could be slightly volume overloaded. Reasonable to continue IV Bumex overnight. If his creatinine remained stable he could be switched to oral dosing from tomorrow. No specific workup required for his elevated troponin at this time. HPI Consult Data Date of Consult: 05/16/24 HPI Narrative Reason for Consultation: Shortness of breath HPI Narrative: EKTA CONWAY, is a 78 M who presents with shortness of breath. He has a history of CHF with preserved EF, pulmonary fibrosis, CAD status post CABG. Please see Dr. Garcia' note from April 27, 2024 for further details. Patient was started on IV Bumex and his shortness of breath is improved. He feels he is still not back to baseline. He is on home oxygen. [facility] Medical History (Updated 05/15/24 @ 02:[address] Simón Vasques, DO) Chronic kidney disease, stage IV (severe) Elevated troponin Pulmonary fibrosis History of pulmonary fibrosis History of chronic kidney disease History of atrial fibrillation Hyperkalemia Weight loss, non-intentional Stage III chronic kidney disease BPH (benign prostatic hyperplasia) Insomnia Anemia GI bleed Anxiety Depression Kidney disease Former smoker On home oxygen therapy Atrial fibrillation Coronary artery disease Hypertension Respiratory failure with hypoxia CHF (congestive heart failure) Hypoxia Hemoptysis Hypoxia Interstitial lung disease Chronic cough Flu vaccine need Increased sputum production Generalized anxiety disorder Diarrhea Varicose veins of both lower extremities Arthritis Secondary pulmonary arterial hypertension FRANCISCO JAVIER (obstructive sleep apnea) Pleural effusion due to CHF (congestive heart failure) (08/27/19) Diverticulitis Hypoxia Elevated troponin (04/07/19) PND (post-nasal drip) Transient ischemic attack Anemia in chronic kidney disease (CKD) CVA (cerebral vascular accident) Stenosis of left subclavian artery Chronic kidney disease, stage 3 Renal artery stenosis Paroxysmal atrial flutter Bilateral carotid artery stenosis Peripheral vascular occlusive disease Atherosclerosis of coronary artery of [place] heart without angina pectoris Essential (primary) hypertension Hyperlipidemia Chronic diastolic (congestive) heart failure GERD (gastroesophageal reflux disease) Gout Arthritis Home Medications ?Medication ?Instructions ?Recorded ?Last Taken ?Type aspirin 81 mg chewable tablet 81 mg PO QHS Heart 08/03/19 05/13/24 History nitroglycerin 0.4 mg sublingual 0.4 mg sublingual PRN PRN Angina 08/14/22 Unknown Rx tablet #25 tabs ferrous sulfate 325 mg (65 mg 325 mg PO BID supplement 01/16/23 05/14/24 History iron) tablet (Feosol) ezetimibe 10 mg tablet 10 mg PO QHS cholesterol #90 tabs 09/02/23 05/13/24 Rx hydralazine 100 mg tablet 100 mg PO TID #270 tabs 09/25/23 05/14/24 Rx pirfenidone 267 mg tablet 801 mg PO TID Pulmonary fibrosis 09/25/23 05/14/24 History carvedilol 3.125 mg tablet 3.125 mg PO BID blood pressure #60 10/17/23 05/14/24 Rx tabs atorvastatin 80 mg tablet 80 mg PO QHS for cholesterol #90 12/23/23 05/13/24 Rx TABLETS doxazosin 8 mg tablet 8 mg PO QHS #90 tabs 12/25/23 05/13/24 Rx amlodipine 10 mg tablet 10 mg PO DAILY blood pressure #90 03/03/24 04/26/24 Rx tabs uomnrlphrhaa-awi-wcbrw acid-vit 1 tab PO QDAY VITAMIN 03/23/24 05/14/24 History K-lycop 400 mcg-20 mcg-370 mcg tablet (Men's 50 Plus Multivitamin) isosorbide mononitrate 120 mg 120 mg PO QAM this is a dose 04/07/24 05/14/24 Rx tablet,extended release 24 hr increase #90 tabs sodium bicarbonate 650 mg tablet 1,300 mg PO TID kidneys 04/12/24 05/14/24 History bumetanide 1 mg tablet 1 mg PO BID CHF 04/23/24 05/14/24 History clonidine 0.3 mg/24 hr weekly 0.3 mg transdermal Q7D #4 ea 05/03/24 Unknown Rx transdermal patch Held on 05/14/24. Instructions: BP RUNNING LOW AT HOME diltiazem HCl 180 mg 180 mg PO DAILY #30 caps 05/03/24 05/14/24 Rx capsule,extended release 24 hr sertraline 50 mg tablet 50 mg PO DAILY mental health #90 05/04/24 05/14/24 Rx tabs fluticasone propionate 50 1 spray intranasal DAILY PRN 05/14/24 05/13/24 History mcg/actuation nasal allergy symptoms spray,suspension (Flonase Allergy Relief) Allergy/AdvReac Type Severity Reaction Status Date / Time No Known Allergies Allergy Verified 04/26/24 15:55 Family History Son CAD (coronary artery disease) Brother CAD (coronary artery disease) Diabetes Brother CAD (coronary artery disease) Diabetes Other Anemia Arthritis CVA (cerebral vascular accident) Hyperlipemia Hypertension Kidney disease Skin cancer Surgical History H/O basal cell carcinoma excision (09/2018) History of left common carotid artery stent placement (2003) History of stent insertion of renal artery (10/01/19) History of angioplasty of peripheral vessel History of left heart catheterization (08/13/12) H/O coronary artery bypass surgery (08/14/12) History of herniorrhaphy History of right-sided carotid endarterectomy (05/2016) H/O colonoscopy History of knee replacement Social History Smoking Status: Former smoker Tobacco: How many years used: 15 how long ago did patient quit smokin second hand exposure: No alcohol intake: current alcohol intake frequency: holidays/special occasions only substance use type: does not use caffeine: Yes Physical Exam Const alert and oriented x3 HEENT normocephalic Neck Neck Narrative: Jugular veins are distended Resp Resp Narrative: Bibasal crackles Extremity no pedal edema Risk Stratification Risk Stratification Applicable: No Objective Data Vital Signs: Vital Signs Temp Pulse Resp BP Pulse Ox O2 Del Method O2 Flow Rate 98.0 F 61 14 124/48 H 93 High Flow 9 05/16/24 12:00 05/16/24 12:00 05/16/24 12:00 05/16/24 12:00 05/16/24 12:00 05/16/24 12:00 05/16/24 12:00 FiO2 50 05/15/24 12:00 Oxygen Flow Rate (L/min) 9 Oxygen Delivery Method High Flow Weight: 178 lb 9.191 oz Body Mass Index (BMI) 27.0 Intake & Output: Intake and Output for Last 24 Hours 05/14/24 05/15/24 05/16/24 23:59 23:59 23:59 Intake Total 200 / 200 486.53 / 486.53 220 / 220 Output Total 2600 / 2600 600 / 600 Balance 200 / 200 -2113.47 / -2113.47 -380 / -380 Lab / Micro Data 05/16/24 06:40 05/16/24 06:40 Labs: Laboratory Results - last 24 hr 05/16/24 06:40: WBC 8.5, RBC 2.82 L, Hgb 8.7 L, Hct 27.6 L, MCV 97.9 H, MCH 30.9, MCHC 31.5 L, RDW Std Deviation 55.0 H, RDW Coeff of Lisa 15.3 H, Plt Count 268, MPV 10.4, Immature Gran % (Auto) 0.600, Neut % (Auto) 90.3 H, Lymph % (Auto) 7.2 L, [place] % (Auto) 1.9, Eos % (Auto) 0.0, Baso % (Auto) 0.0, Absolute Neuts (auto) 7.7, Absolute Lymphs (auto) 0.61 L, Nucleated RBC % 0, Sodium 143, Potassium 4.4, Chloride 101, Carbon Dioxide 26.2, Anion Gap 16 H, BUN 74 H, Creatinine 2.99 H, Estim Creat Clear Calc 19.70 L, Est GFR (MDRD) Non-Af 21 L, BUN/Creatinine Ratio 24.8 H, Glucose 165 H, Calcium 8.1 Cardiology Labs/Tests 05/16/24 06:40: WBC 8.5, RBC 2.82 L, Hgb 8.7 L, Hct 27.6 L, MCV 97.9 H, MCH 30.9, MCHC 31.5 L, Plt Count 268, MPV 10.4, Immature Gran % (Auto) 0.600, Neut % (Auto) 90.3 H, Lymph % (Auto) 7.2 L, [place] % (Auto) 1.9, Eos % (Auto) 0.0, Baso % (Auto) 0.0, Absolute Neuts (auto) 7.7, Nucleated RBC % 0, Sodium 143, Potassium 4.4, Chloride 101, Carbon Dioxide 26.2, Anion Gap 16 H, BUN 74 H, Creatinine 2.99 H, Est GFR (MDRD) Non-Af 21 L, BUN/Creatinine Ratio 24.8 H, Glucose 165 H, Calcium 8.1 Rhythm: EKG: ECHO: Stress Test: Cardiac Cath: PCI: CT Surgery: Holter monitor: EPS: PPM: CXR: Chest CT Scan: Radiography Diagnostic Testing: Radiology Impression Chest CT 05/15/24 12:15 IMPRESSION: Persistent bilateral pleural effusions right greater than left with underlying compressive atelectasis superimposed on chronic interstitial scarring. Reading Location: [place] [address]
[2024-05-16] MEDS: Bumetanide 12.5 MG in CONTAINER,EMPTY 1 BAG 2 MG CONT INF (16:47)
[2024-05-16] MEDS: hydrALAZINE 50 MG Tablet 100 MG PO (21:18)
[2024-05-16] MEDS: Ezetimibe 10 MG Tablet PO (21:18)
[2024-05-16] MEDS: Atorvastatin Calcium 80 MG Tablet PO (21:18)
[2024-05-16] MEDS: Aspirin 81 MG TAB.CHEW PO (21:18)
[2024-05-16] MEDS: Doxazosin 4 MG Tablet 8 MG PO (21:18)
[2024-05-16] MEDS: 0.9% Normal Saline (100mL Bag) 100 ML 15 ML IV (21:20)
[2024-05-17] VITALS (23 sets, daily range): BP systolic 125–169; BP diastolic 42–92; PULSE 51–81; RESP 12–23; TEMP 36.4–36.7; O2SAT 91–100; BMI 27.1
[2024-05-17] MEDS: Sodium Bicarbonate 650 MG Tablet 1300 MG PO ×3 (05:44→21:54)
[2024-05-17] MEDS: Piperacil/Tazobactam 3.375 GM in 0.9% Normal Saline (50mL MB+) 50 ML IV ×3 (05:45→22:07)
[2024-05-17 06:17] LABS: Absolute Lymphocyte Count 0.39 X10^3/uL (0.83-4.51); Absolute Neutrophil Count 9.4 X10^3/uL (2.0-7.7); Hematocrit 26.4 % (40-54); Hemoglobin 8.4 g/dL (13.0-16.5); Lymphocyte # 0.39 X10^3/ul (0.83-4.51); Lymphocyte % 3.9 % (19-41); Mean Corp Hgb Conc 31.8 g/dL (32-36); Mean Corpuscular Hgb 31.3 pg (27.0-32.0); Mean Corpuscular Volume 98.5 fL (80-94); Mean Platelet Vol. 10.4 fl (6.2-12.0); Monocyte# 0.14 X10^3/uL; Monocyte% 1.4 % (0-10); NRBC Flagged by Analyzer 0 % (0-5); Neutrophil # 9.43 X10^3/uL (2.7-7.7); Neutrophil % 94.1 % (47-70); POSITIVE DIFFERENTIAL YES; Platelet Count 265 K/mm3 (150-450); RBC Distribution Width CV 15.4 % (11.6-14.6); RBC Distribution Width SD 54.9 fl (35.1-43.9); Red Blood Count 2.68 M/mm3 (4.6-6.2)
[2024-05-17 08:05] LABS: Anion Gap 17 (5-15); BUN 81 mg/dL (4-19); BUN/Creat Ratio 26.4 RATIO (10-20); Calcium,Total 7.8 mg/dL (7.6-11.0); Carbon Dioxide 26.4 mmol/L (21.0-32.0); Chloride 99 mmol/L (98-108); Creatinine, Serum 3.07 mg/dL (0.70-1.20); EST Glomerular Filtration Rate 20 (>60); Estimated Creatinine Clearance 19.19 ml/min (50-250); Glucose 160 mg/dL (70-99); Sodium Level 142 mmol/L (133-145)
[2024-05-17] MEDS: Lactobacillis Acidophilus 1 CAP PO ×4 (08:38→21:53)
[2024-05-17] MEDS: Carvedilol 3.125 MG TABLET PO ×2 (08:38→16:33)
[2024-05-17] MEDS: amLODIPine 10 MG Tablet PO (08:39)
[2024-05-17] MEDS: Multivitamins,Ther W-Minerals Tablet 1 TABLET PO (08:39)
[2024-05-17] MEDS: dilTIAZem CD 180 MG Capsule PO (08:39)
[2024-05-17] MEDS: PIRFENIDONE 801 MG PO ×3 (08:40→16:32)
[2024-05-17] MEDS: Pantoprazole Sodium 40 MG Tablet PO (08:40)
[2024-05-17] MEDS: Finasteride 5 MG Tablet PO (08:40)
[2024-05-17] MEDS: Sertraline 50 MG Tablet PO (08:41)
[2024-05-17] MEDS: Enoxaparin 60 MG/0.6 ML Syringe SC (08:42)
[2024-05-17] MEDS: MethylPREDNISolone 125 MG/2 ML Vial 60 MG IV ×2 (08:42→21:53)
--- NOTE | 2024-05-17 09:50 | PN_ITS ---
Subjective Subjective Patient seen and examined. He had no complaints and felt better. He is down to 6 L of oxygen. Review of symptoms otherwise negative. His creatinine today is up to 3.07. Bumex drip discontinued today. Objective Data Objective Data Vital Signs: Vital Signs Temp Pulse Resp BP Pulse Ox O2 Del Method O2 Flow Rate 97.6 F L 70 19 H 137/48 H 95 High Flow 6 05/17/24 08:00 05/17/24 09:00 05/17/24 09:00 05/17/24 09:00 05/17/24 09:00 05/17/24 09:00 05/17/24 09:00 FiO2 50 05/15/24 12:00 Oxygen Flow Rate (L/min) 6 Oxygen Delivery Method High Flow Weight: 179 lb 3.773 oz Body Mass Index (BMI) 27.1 Intake & Output: Intake and Output for Last 24 Hours 05/15/24 05/16/24 05/17/24 23:59 23:59 23:59 Intake Total 486.53 / 486.53 543.46 / 543.46 823.77 / 823.77 Output Total 2600 / 2600 1625 / 1825 575 / 575 Balance -2113.47 / -2113.47 -1081.54 / -1281.54 248.77 / 248.77 Lab / Micro Data 05/17/24 05:40 05/17/24 05:40 Labs: Laboratory Results - last 24 hr 05/17/24 05:40: WBC 10.0, RBC 2.68 L, Hgb 8.4 L, Hct 26.4 L, MCV 98.5 H, MCH 31.3, MCHC 31.8 L, RDW Std Deviation 54.9 H, RDW Coeff of Lisa 15.4 H, Plt Count 265, MPV 10.4, Immature Gran % (Auto) 0.600, Neut % (Auto) 94.1 H, Lymph % (Auto) 3.9 L, [place] % (Auto) 1.4, Eos % (Auto) 0.0, Baso % (Auto) 0.0, Absolute Neuts (auto) 9.4 H, Absolute Lymphs (auto) 0.39 L, Nucleated RBC % 0, Sodium 142, Potassium 4.0, Chloride 99, Carbon Dioxide 26.4, Anion Gap 17 H, BUN 81 H, Creatinine 3.07 H, Estim Creat Clear Calc 19.19 L, Est GFR (MDRD) Non-Af 20 L, B UN/Creatinine Ratio 26.4 H, Glucose 160 H, Calcium 7.8 Micro: Microbiology 05/17/24 08:25 Stool Stool Occult Blood (LEONA) - Final Occult Blood Positive 05/14/24 15:25 Mucosa - Nose SARS-CoV-2, Influenza & RSV (PCR) - Final Physical Exam Const alert, oriented x3, no apparent distress and well nourished General Appearance: cooperative and well developed HEENT normocephalic, head/scalp atraumatic, moist oral mucous membranes and oropharynx normal Eyes PERRL and EOMs intact bilaterally Neck supple and no JVD Lymph Lymphatic: no lymphadenopathy noted and no lymphedema noted Resp Resp Narrative: diminished breath sounds bibasally, no wheezing, few crackles. on 6 L of oxygen by nasal canula Cardio regular rate, regular rhythm, S1 normal heart sound, S2 normal heart sound and no murmurs GI normal to inspection, nondistended, normoactive bowel sounds, soft to palpation, non-tender and non-distended Extremity normal capillary refill, no clubbing, cyanosis or edema and no calf tenderness General Extremity: no tenderness to palpation of joints or extremities Skin General Skin Exam: no breakdown Neuro CN's II-XII intact bilaterally, no focal motor deficits and no sensory deficits noted Motor Exam: strength 5/5 throughout and general weakness Psych thought process normal and cooperative Appearance: appropriate Assessment & Plan Assessment/Plan (1) Acute on chronic hypoxic respiratory failure: (2) Acute exacerbation of chronic heart failure: (3) Chronic kidney disease, stage IV (severe): PLAN: Plan #Acute on chronic hypoxic respiratory failure due to acute on chronic exacerbation of HFrEF * admitted with a complaint Of shortness of breath. * proBNP was elevated at over 37,000. Chest x-ray showed evidence of fluid overload. * remains on bumex drip. Will dc bumex drip today as Cr is up to 3.07 and also patient is down to his baseline oxygen. * titrate oxygen to maintain sats >90%; breathing treatment with bronchodilators. * CXR showed cardiomegaly and CHF with small bilateral pleural effusions and bibasilar atelectasis * he had a 2D echo done on 04/27/2024 which showed EF of 50-55% and unable to assess diastolic dysfunction, with no regional wall motion abnormalities noted. * * #Elevated troponins, likely due to demand ischemia from heart failure. * 2D echo from 04/28/2024 as above. * Currently stable and down to 6 L of oxygen. May have been due to demand ischemia from heart failure. * cardiology consulted; per cardiology, no further workup required for his elevated troponin. Acute on chronic anemia: * Hemoglobin is 8.7 today. . * Continue to monitor closely and transfuse if Hb is less than 7. * He does have a history of GI bleed * #CKD IV: * Cr today is up to 3.07 today * bumex drip discontinued. Will switch to PO bumex from tomorrow. HOld bumex today due to Cr trending upwards. * nephrology on board * bumex t * #History of pulmonary fibrosis * on pirfenidone. * counseled that he will benefit from close follow up with his pulmonology team at [facility] for evaluation of his pulmonary fibrosis. * #CAD s/p CABG x 4 * on aspirin, high intensity statin, ezetemibe and carvedilol * #History of A-fib: On Cardizem and metoprolol. Not on anticoagulation due to history of GI bleed #Benign essential hypertension: Probably pending clonidine, hydralazine and Bumex. #Hyperlipidemia: On ezetimibe and statin. #History of bilateral carotid artery stenosis * s/p left common carotid artery stent and right carotid endarterectomy. * #Depression: On sertraline #BPH: On doxazosin # History of CAD: Stable DVT prophylaxis: On renally dosed Lovenox. Disposition: transfer to PCU today. Charges/Coding Visit Charges Inpatient E&M: 77630 Subs Hosp L2
[2024-05-17] MEDS: Ferrous Sulfate 325 MG Tablet PO ×2 (11:38→16:33)
--- NOTE | 2024-05-17 13:17 | PN.CARD_ITS ---
Subjective Subjective Shortness of breath is improved compared yesterday but still not back to baseline. Objective Data Vital Signs: Vital Signs Temp Pulse Resp BP Pulse Ox O2 Del Method O2 Flow Rate 97.6 F L 60 13 129/42 H 96 High Flow 6 05/17/24 08:00 05/17/24 12:00 05/17/24 12:00 05/17/24 12:00 05/17/24 12:00 05/17/24 12:00 05/17/24 12:00 FiO2 50 05/15/24 12:00 Oxygen Flow Rate (L/min) 6 Oxygen Delivery Method High Flow Weight: 179 lb 3.773 oz Body Mass Index (BMI) 27.1 Intake & Output: Intake and Output for Last 24 Hours 05/15/24 05/16/24 05/17/24 23:59 23:59 23:59 Intake Total 486.53 / 486.53 543.46 / 543.46 1233.77 / 1233.77 Output Total 2600 / 2600 1625 / 1825 875 / 875 Balance -2113.47 / -2113.47 -1081.54 / -1281.54 358.77 / 358.77 Lab / Micro Data 05/17/24 05:40 05/17/24 05:40 Labs: Laboratory Results - last 24 hr 05/17/24 05:40: WBC 10.0, RBC 2.68 L, Hgb 8.4 L, Hct 26.4 L, MCV 98.5 H, MCH 31.3, MCHC 31.8 L, RDW Std Deviation 54.9 H, RDW Coeff of Lisa 15.4 H, Plt Count 265, MPV 10.4, Immature Gran % (Auto) 0.600, Neut % (Auto) 94.1 H, Lymph % (Auto) 3.9 L, [place] % (Auto) 1.4, Eos % (Auto) 0.0, Baso % (Auto) 0.0, Absolute Neuts (auto) 9.4 H, Absolute Lymphs (auto) 0.39 L, Nucleated RBC % 0, Sodium 142, Potassium 4.0, Chloride 99, Carbon Dioxide 26.4, Anion Gap 17 H, BUN 81 H, Creatinine 3.07 H, Estim Creat Clear Calc 19.19 L, Est GFR (MDRD) Non-Af 20 L, B UN/Creatinine Ratio 26.4 H, Glucose 160 H, Calcium 7.8 Micro: Microbiology 05/17/24 08:25 Stool Stool Occult Blood (LEONA) - Final Occult Blood Positive Cardiology Labs/Tests 05/17/24 05:40: WBC 10.0, RBC 2.68 L, Hgb 8.4 L, Hct 26.4 L, MCV 98.5 H, MCH 31.3, MCHC 31.8 L, Plt Count 265, MPV 10.4, Immature Gran % (Auto) 0.600, Neut % (Auto) 94.1 H, Lymph % (Auto) 3.9 L, [place] % (Auto) 1.4, Eos % (Auto) 0.0, Baso % (Auto) 0.0, Absolute Neuts (auto) 9.4 H, Nucleated RBC % 0, Sodium 142, Potassium 4.0, Chloride 99, Carbon Dioxide 26.4, Anion Gap 17 H, BUN 81 H, C reatinine 3.07 H, Est GFR (MDRD) Non-Af 20 L, BUN/Creatinine Ratio 26.4 H, G lucose 160 H, Calcium 7.8 Rhythm: EKG: ECHO: Stress Test: Cardiac Cath: PCI: CT Surgery: Holter monitor: EPS: PPM: CXR: Chest CT Scan: Physical Exam Const alert and oriented x3 Neck Neck Narrative: JVD appears to be less than yesterday. Resp Resp Narrative: Crackles improved compared to yesterday Assessment & Plan Assessment/Plan (1) Acute on chronic hypoxic respiratory failure: PLAN: This is likely from a combination of pulmonary fibrosis and CHF with preserved EF. Improved. Agree with switching to p.o. Bumex. We will sign off at this time. If we can be of any further assistance please let us know. Charges/Coding Visit Charges Inpatient E&M: 46327 Subs Hosp L1
[2024-05-17] MEDS: 0.9% Saline Lock 10 ML Syringe IV ×2 (14:12→21:54)
[2024-05-17] MEDS: hydrALAZINE 50 MG Tablet 100 MG PO (21:53)
[2024-05-17] MEDS: Atorvastatin Calcium 80 MG Tablet PO (21:53)
[2024-05-17] MEDS: Doxazosin 4 MG Tablet 8 MG PO (21:53)
[2024-05-17] MEDS: Ezetimibe 10 MG Tablet PO (21:54)
[2024-05-17] MEDS: Aspirin 81 MG TAB.CHEW PO (21:54)
[2024-05-18] VITALS (9 sets, daily range): BP systolic 129–150; BP diastolic 48–80; PULSE 64–105; RESP 18–20; TEMP 36.2–36.8; O2SAT 88–97
[2024-05-18 04:48] LABS: Absolute Lymphocyte Count 0.35 X10^3/uL (0.83-4.51); Absolute Neutrophil Count 8.9 X10^3/uL (2.0-7.7); Basophil# 0.01 X10^3/uL; Basophil% 0.1 % (0-1); Hematocrit 28.6 % (40-54); Hemoglobin 9.2 g/dL (13.0-16.5); Lymphocyte # 0.35 X10^3/ul (0.83-4.51); Lymphocyte % 3.7 % (19-41); Mean Corp Hgb Conc 32.2 g/dL (32-36); Mean Corpuscular Hgb 30.8 pg (27.0-32.0); Mean Corpuscular Volume 95.7 fL (80-94); Mean Platelet Vol. 10.3 fl (6.2-12.0); Monocyte# 0.14 X10^3/uL; Monocyte% 1.5 % (0-10); NRBC Flagged by Analyzer 0 % (0-5); Neutrophil # 8.89 X10^3/uL (2.7-7.7); Neutrophil % 93.4 % (47-70); POSITIVE DIFFERENTIAL YES; Platelet Count 279 K/mm3 (150-450); RBC Distribution Width SD 51.9 fl (35.1-43.9); Red Blood Count 2.99 M/mm3 (4.6-6.2); White Blood Count 9.5 K/mm3 (4.4-11.0)
[2024-05-18] MEDS: hydrALAZINE 50 MG Tablet 100 MG PO ×3 (05:11→20:33)
[2024-05-18] MEDS: Piperacil/Tazobactam 3.375 GM in 0.9% Normal Saline (50mL MB+) 50 ML IV ×2 (05:11→20:43)
[2024-05-18] MEDS: Sodium Bicarbonate 650 MG Tablet 1300 MG PO ×3 (05:11→20:34)
[2024-05-18 05:13] LABS: Anion Gap 15 (5-15); BUN 86 mg/dL (4-19); BUN/Creat Ratio 26.9 RATIO (10-20); Calcium,Total 7.7 mg/dL (7.6-11.0); Carbon Dioxide 27.5 mmol/L (21.0-32.0); Chloride 98 mmol/L (98-108); Creatinine, Serum 3.19 mg/dL (0.70-1.20); EST Glomerular Filtration Rate 19 (>60); Estimated Creatinine Clearance 18.46 ml/min (50-250); Glucose 177 mg/dL (70-99); Potassium 3.6 mmol/L (3.3-5.1); Sodium Level 140 mmol/L (133-145)
[2024-05-18] MEDS: Sertraline 50 MG Tablet PO (09:38)
[2024-05-18] MEDS: dilTIAZem CD 180 MG Capsule PO (09:38)
[2024-05-18] MEDS: Carvedilol 3.125 MG TABLET PO ×2 (09:38→16:22)
[2024-05-18] MEDS: Multivitamins,Ther W-Minerals Tablet 1 TABLET PO (09:38)
[2024-05-18] MEDS: PIRFENIDONE 801 MG PO ×3 (09:38→17:06)
[2024-05-18] MEDS: Finasteride 5 MG Tablet PO (09:38)
[2024-05-18] MEDS: Enoxaparin 60 MG/0.6 ML Syringe SC (09:38)
[2024-05-18] MEDS: amLODIPine 10 MG Tablet PO (09:38)
[2024-05-18] MEDS: Pantoprazole Sodium 40 MG Tablet PO (09:38)
[2024-05-18] MEDS: Lactobacillis Acidophilus 1 CAP PO ×4 (09:39→20:33)
[2024-05-18] MEDS: MethylPREDNISolone 125 MG/2 ML Vial 60 MG IV ×2 (09:39→20:34)
--- NOTE | 2024-05-18 11:43 | PCM.PN.REN ---
Subjective Subjective Sitting in recliner chair, at bedside. Patient states breathing has improved. Edema improved. Objective Data Objective Data Vital Signs: Vital Signs Temp Pulse Resp BP Pulse Ox O2 Del Method O2 Flow Rate 97.6 F L 105 H 18 145/80 H 88 Nasal Cannula 6 05/18/24 09:34 05/18/24 09:34 05/18/24 09:34 05/18/24 09:34 05/18/24 10:24 05/18/24 10:24 05/18/24 10:24 FiO2 50 05/15/24 12:00 Oxygen Flow Rate (L/min) 6 Oxygen Delivery Method Nasal Cannula Weight: 81.3 kg Body Mass Index (BMI) 27.1 Intake & Output: Intake and Output for Last 24 Hours 05/16/24 05/17/24 05/18/24 23:59 23:59 23:59 Intake Total 543.46 / 543.46 1763.77 / 1763.77 900 / 900 Output Total 1625 / 1825 1075 / 1075 650 / 650 Balance -1081.54 / -1281.54 688.77 / 688.77 250 / 250 Lab / Micro Data 05/18/24 04:14 05/18/24 04:14 Labs: Laboratory Results - last 24 hr 05/18/24 04:14: WBC 9.5, RBC 2.99 L, Hgb 9.2 L, Hct 28.6 L, MCV 95.7 H, MCH 30.8, MCHC 32.2, RDW Std Deviation 51.9 H, RDW Coeff of Lisa 15.0 H, Plt Count 279, MPV 10.3, Immature Gran % (Auto) 1.300 H, Neut % (Auto) 93.4 H, Lymph % (Auto) 3.7 L, [place] % (Auto) 1.5, Eos % (Auto) 0.0, Baso % (Auto) 0.1, Absolute Neuts (auto) 8.9 H, Absolute Lymphs (auto) 0.35 L, Nucleated RBC % 0, Sodium 140, Potassium 3.6, Chloride 98, Carbon Dioxide 27.5, Anion Gap 15, BUN 86 H, Creatinine 3.19 H, Estim Creat Clear Calc 18.46 L, Est GFR (MDRD) Non-Af 19 L, BUN/Creatinine Ratio 26.9 H, Glucose 177 H, Calcium 7.7 Micro: Microbiology 05/17/24 08:25 Stool Stool Occult Blood (LEONA) - Final Occult Blood Positive 05/14/24 15:25 Mucosa - Nose SARS-CoV-2, Influenza & RSV (PCR) - Final Physical Exam Narrative Alert awake oriented x 3 no obvious distress s1s2 no murmurs lungs clear anteriorly. No rales or rhonchi abdomen soft no edema Assessment & Plan Assessment/Plan (1) Chronic kidney disease, stage IV (severe): PLAN: - BRAYDON on CKD stage 4; Cr close to baseline on admission. He was started on bumex gtt on admission, yesterday SCr up to 3.07, bumex gtt stopped and back on Bumex 1mg po bid (this is home dose). SCr 3.19 today. Overall renal function stable and near baseline. Hopefully serum creatinine is plateauing and will begin to trend back to near baseline. - History of IPF - follows with pulmonology thru [facility] in [place]. Last seen first week of May. Started pulmonary rehab in [place] first week of May. He was supposed to enroll in trial for IPF at [facility] as per last pulmonology note. O2 via nasal cannula anywhere from 4 to 6 L (this is O2 requirement at home for patient). Clinically he does not look overloaded, no edema. Patient states his weight today was 140 pounds. Weight at home around 142 pounds. Per cumulative I&O patient is net -2 L. Reviewed with patient and importance of low-sodium diet and fluid restriction of no more than 1.5 L fluid per day. At time of hospital discharge will arrange for nephrology follow-up in [place] office. Patient will need close follow up with customer success representative after discharge. Assessment and plan reviewed with Dr. Leal.
--- NOTE | 2024-05-18 12:18 | PN_ITS ---
Subjective Subjective Patient seen and examined. He had no complaints and was lying comfortably in bed. Review of systems otherwise negative. He was down to 6 L of oxygen. Plan was hopefully discharge him today but patient desaturated quickly with even the slightest ambulation. Creatinine is also gone up to 3.19. Objective Data Objective Data Vital Signs: Vital Signs Temp Pulse Resp BP Pulse Ox O2 Del Method O2 Flow Rate 97.6 F L 105 H 18 145/80 H 88 Nasal Cannula 6 05/18/24 09:34 05/18/24 09:34 05/18/24 09:34 05/18/24 09:34 05/18/24 10:24 05/18/24 10:24 05/18/24 10:24 FiO2 50 05/15/24 12:00 Oxygen Flow Rate (L/min) 6 Oxygen Delivery Method Nasal Cannula Weight: 179 lb 3.773 oz Body Mass Index (BMI) 27.1 Intake & Output: Intake and Output for Last 24 Hours 05/16/24 05/17/24 05/18/24 23:59 23:59 23:59 Intake Total 543.46 / 543.46 1763.77 / 1763.77 900 / 900 Output Total 1625 / 1825 1075 / 1075 650 / 650 Balance -1081.54 / -1281.54 688.77 / 688.77 250 / 250 Lab / Micro Data 05/18/24 04:14 05/18/24 04:14 Labs: Laboratory Results - last 24 hr 05/18/24 04:14: WBC 9.5, RBC 2.99 L, Hgb 9.2 L, Hct 28.6 L, MCV 95.7 H, MCH 30.8, MCHC 32.2, RDW Std Deviation 51.9 H, RDW Coeff of Lisa 15.0 H, Plt Count 279, MPV 10.3, Immature Gran % (Auto) 1.300 H, Neut % (Auto) 93.4 H, Lymph % (Auto) 3.7 L, [place] % (Auto) 1.5, Eos % (Auto) 0.0, Baso % (Auto) 0.1, Absolute Neuts (auto) 8.9 H, Absolute Lymphs (auto) 0.35 L, Nucleated RBC % 0, Sodium 140, Potassium 3.6, Chloride 98, Carbon Dioxide 27.5, Anion Gap 15, BUN 86 H, C reatinine 3.19 H, Estim Creat Clear Calc 18.46 L, Est GFR (MDRD) Non-Af 19 L, B UN/Creatinine Ratio 26.9 H, Glucose 177 H, Calcium 7.7 Micro: Microbiology 05/17/24 08:25 Stool Stool Occult Blood (LEONA) - Final Occult Blood Positive 05/14/24 15:25 Mucosa - Nose SARS-CoV-2, Influenza & RSV (PCR) - Final Physical Exam Const alert, oriented x3, no apparent distress and well nourished General Appearance: cooperative and well developed HEENT normocephalic, head/scalp atraumatic, moist oral mucous membranes and oropharynx normal Eyes PERRL and EOMs intact bilaterally Neck supple and no JVD Lymph Lymphatic: no lymphadenopathy noted and no lymphedema noted Resp Resp Narrative: diminished breath sounds bibasally, no wheezing, few crackles. on 6 L of oxygen by nasal canula Cardio regular rate, regular rhythm, S1 normal heart sound, S2 normal heart sound and no murmurs GI normal to inspection, nondistended, normoactive bowel sounds, soft to palpation, non-tender and non-distended Extremity normal capillary refill, no clubbing, cyanosis or edema and no calf tenderness General Extremity: no tenderness to palpation of joints or extremities Skin General Skin Exam: no breakdown Neuro CN's II-XII intact bilaterally, no focal motor deficits and no sensory deficits noted Motor Exam: strength 5/5 throughout and general weakness Psych thought process normal and cooperative Appearance: appropriate Assessment & Plan Assessment/Plan (1) Acute on chronic hypoxic respiratory failure: (2) Acute exacerbation of chronic heart failure: (3) Chronic kidney disease, stage IV (severe): PLAN: Plan #Acute on chronic hypoxic respiratory failure due to acute on chronic exacerbation of HFrEF * admitted with a complaint Of shortness of breath. * proBNP was elevated at over 37,000. Chest x-ray showed evidence of fluid overload. * remains on bumex drip. Will dc bumex drip today as Cr is up to 3.07 and also patient is down to his baseline oxygen. * titrate oxygen to maintain sats >90%; breathing treatment with bronchodilators. * CXR showed cardiomegaly and CHF with small bilateral pleural effusions and bibasilar atelectasis * he had a 2D echo done on 04/27/2024 which showed EF of 50-55% and unable to assess diastolic dysfunction, with no regional wall motion abnormalities noted. * * #Elevated troponins, likely due to demand ischemia from heart failure. * 2D echo from 04/28/2024 as above. * Currently stable and down to 6 L of oxygen. May have been due to demand ischemia from heart failure. * cardiology consulted; per cardiology, no further workup required for his elevated troponin. Acute on chronic anemia: * Hemoglobin is 9.2 * Continue to monitor closely and transfuse if Hb is less than 7. * He does have a history of GI bleed * stool for occult blood positive * With his respiratory status, question whether patient would even be able to tolerate an EGD or colonoscopy. * Hemoglobin is around his baseline. * His last EGD was in November 2022 which showed 3 nonbleeding angiodysplastic lesions in the stomach which were biopsied and chronic gastritis with hemorrhage. * Colonoscopy in November 2022 showed nonbleeding internal hemorrhoids and 3 sessile polyps as well as diverticulosis. * consult GI for their assessment. * #CKD IV: * Cr today is up to 3.19 today * was on bumex drip which was discontinued * PO bumex held * #History of pulmonary fibrosis * on pirfenidone. * counseled that he will benefit from close follow up with his pulmonology team at [facility] for evaluation of his pulmonary fibrosis. * #CAD s/p CABG x 4 * on aspirin, high intensity statin, ezetimibe and carvedilol * #History of A-fib: * On Cardizem and metoprolol. Not on anticoagulation due to history of GI bleed #Benign essential hypertension: Probably pending clonidine, hydralazine and Bumex. #Hyperlipidemia: On ezetimibe and statin. #History of bilateral carotid artery stenosis * s/p left common carotid artery stent and right carotid endarterectomy. * #Depression: On sertraline #BPH: On doxazosin # History of CAD: Stable DVT prophylaxis: dc lovenox as stool for occult blood is positive Disposition: dc home when medically stable. Charges/Coding Visit Charges Inpatient E&M: 56816 Subs Hosp L2
[2024-05-18] MEDS: Ferrous Sulfate 325 MG Tablet PO ×2 (12:44→17:06)
[2024-05-18] MEDS: Doxazosin 4 MG Tablet 8 MG PO (20:34)
[2024-05-18] MEDS: Atorvastatin Calcium 80 MG Tablet PO (20:34)
[2024-05-18] MEDS: Ezetimibe 10 MG Tablet PO (20:34)
[2024-05-19] VITALS (9 sets, daily range): BP systolic 123–176; BP diastolic 46–113; PULSE 78–114; RESP 18–20; TEMP 35.9–36.7; O2SAT 84–95; BMI 22.7
[2024-05-19] MEDS: hydrALAZINE 50 MG Tablet 100 MG PO ×2 (05:18→21:06)
[2024-05-19] MEDS: Sodium Bicarbonate 650 MG Tablet 1300 MG PO ×3 (05:18→21:07)
[2024-05-19 07:37] LABS: Absolute Lymphocyte Count 0.46 X10^3/uL (0.83-4.51); Basophil# 0.01 X10^3/uL; Basophil% 0.1 % (0-1); Hemoglobin 9.5 g/dL (13.0-16.5); Lymphocyte # 0.46 X10^3/ul (0.83-4.51); Lymphocyte % 5.9 % (19-41); Mean Corp Hgb Conc 32.8 g/dL (32-36); Mean Corpuscular Hgb 30.7 pg (27.0-32.0); Mean Corpuscular Volume 93.9 fL (80-94); Mean Platelet Vol. 10.1 fl (6.2-12.0); Monocyte# 0.16 X10^3/uL; Monocyte% 2.1 % (0-10); NRBC Flagged by Analyzer 0 % (0-5); Neutrophil # 6.99 X10^3/uL (2.7-7.7); Neutrophil % 90.3 % (47-70); POSITIVE DIFFERENTIAL YES; Platelet Count 278 K/mm3 (150-450); RBC Distribution Width CV 14.9 % (11.6-14.6); RBC Distribution Width SD 51.4 fl (35.1-43.9); Red Blood Count 3.09 M/mm3 (4.6-6.2); White Blood Count 7.7 K/mm3 (4.4-11.0)
[2024-05-19 08:15] LABS: Anion Gap 19 (5-15); BUN 97 mg/dL (4-19); BUN/Creat Ratio 30.2 RATIO (10-20); Calcium,Total 7.5 mg/dL (7.6-11.0); Carbon Dioxide 24.3 mmol/L (21.0-32.0); Chloride 99 mmol/L (98-108); Creatinine, Serum 3.23 mg/dL (0.70-1.20); EST Glomerular Filtration Rate 19 (>60); Estimated Creatinine Clearance 18.13 ml/min (50-250); Glucose 177 mg/dL (70-99); Potassium 3.7 mmol/L (3.3-5.1); Sodium Level 142 mmol/L (133-145)
[2024-05-19] MEDS: Carvedilol 3.125 MG TABLET PO ×2 (09:02→16:45)
[2024-05-19] MEDS: amLODIPine 10 MG Tablet PO (09:02)
[2024-05-19] MEDS: Sertraline 50 MG Tablet PO (09:02)
[2024-05-19] MEDS: PIRFENIDONE 801 MG PO ×3 (09:02→17:09)
[2024-05-19] MEDS: Pantoprazole Sodium 40 MG Tablet PO (09:02)
[2024-05-19] MEDS: Finasteride 5 MG Tablet PO (09:02)
[2024-05-19] MEDS: dilTIAZem CD 180 MG Capsule PO (09:02)
[2024-05-19] MEDS: Multivitamins,Ther W-Minerals Tablet 1 TABLET PO (09:02)
[2024-05-19] MEDS: 0.9% Saline Lock 10 ML Syringe IV ×2 (09:03→21:13)
[2024-05-19] MEDS: Piperacil/Tazobactam 3.375 GM in 0.9% Normal Saline (50mL MB+) 50 ML IV ×2 (09:03→21:11)
[2024-05-19] MEDS: MethylPREDNISolone 125 MG/2 ML Vial 60 MG IV ×2 (09:03→21:08)
[2024-05-19] MEDS: Lactobacillis Acidophilus 1 CAP PO ×4 (09:03→21:08)
--- NOTE | 2024-05-19 11:19 | PN.RENAL_ITS ---
Subjective Subjective Sitting in chair, clinically looking better today. States with exertion becomes slightly short of breath but otherwise feels better today. Objective Data Objective Data Vital Signs: Vital Signs Temp Pulse Resp BP Pulse Ox O2 Del Method O2 Flow Rate 98.1 F 100 20 H 145/113 H 94 Nasal Cannula 6 05/19/24 10:29 05/19/24 10:29 05/19/24 10:29 05/19/24 10:29 05/19/24 10:29 05/19/24 10:05/19/24 10:29 FiO2 50 05/15/24 12:00 Oxygen Flow Rate (L/min) 6 Oxygen Delivery Method Nasal Cannula Weight: 68 kg Body Mass Index (BMI) 22.7 Intake & Output: Intake and Output for Last 24 Hours 05/17/24 05/18/24 05/19/24 23:59 23:59 23:59 Intake Total 1763.77 / 1763.77 1500 / 1800 800 / 800 Output Total 1075 / 1075 1150 / 1400 600 / 600 Balance 688.77 / 688.77 350 / 400 200 / 200 Lab / Micro Data 05/19/24 07:08 05/19/24 07:08 Labs: Laboratory Results - last 24 hr 05/19/24 07:08: WBC 7.7, RBC 3.09 L, Hgb 9.5 L, Hct 29.0 L, MCV 93.9, MCH 30.7, MCHC 32.8, RDW Std Deviation 51.4 H, RDW Coeff of Lisa 14.9 H, Plt Count 278, MPV 10.1, Immature Gran % (Auto) 1.600 H, Neut % (Auto) 90.3 H, Lymph % (Auto) 5.9 L , [place] % (Auto) 2.1, Eos % (Auto) 0.0, Baso % (Auto) 0.1, Absolute Neuts (auto) 7.0, Absolute Lymphs (auto) 0.46 L, Nucleated RBC % 0, Sodium 142, Potassium 3.7, Chloride 99, Carbon Dioxide 24.3, Anion Gap 19 H, BUN 97 H, Creatinine 3.23 H, Estim Creat Clear Calc 18.13 L, Est GFR (MDRD) Non-Af 19 L, BUN/Creatinine Ratio 30.2 H, Glucose 177 H, Calcium 7.5 L Micro: Microbiology 05/17/24 08:25 Stool Stool Occult Blood (LEONA) - Final Occult Blood Positive 05/14/24 15:25 Mucosa - Nose SARS-CoV-2, Influenza & RSV (PCR) - Final Physical Exam Narrative Alert awake oriented x 3 no obvious distress s1s2 no murmurs lungs clear anteriorly. Diminished breath sounds abdomen soft no edema Assessment & Plan Assessment/Plan (1) Chronic kidney disease, stage IV (severe): PLAN: - BRAYDON on CKD stage 4; Cr close to baseline on admission. He was started on bumex gtt on admission, yesterday SCr up to 3.07, bumex gtt stopped and back on Bumex 1mg po bid (this is home dose). Because of rising SCr oral bumex stopped. SCr 3.07--> SCr 3.19--> today SCr 3.23. Overall renal function stable and near baseline. Hopefully serum creatinine is plateauing and will begin to trend back to near baseline. Reviewed FR with patient and . Restart back on oral bumex. - History of IPF - follows with pulmonology thru [facility] in [place]. Last seen first week of May. Started pulmonary rehab in [place] first week of May. He was supposed to enroll in trial for IPF at [facility] as per last pulmonology note. O2 via nasal cannula anywhere from 4 to 6 L (this is O2 requirement at home for patient). Clinically he does not look fluid overloaded, no edema. Weight at home around 142 pounds. Per cumulative I&O patient is net -1.7L. At time of hospital discharge will arrange for nephrology follow-up in [place] office. Patient will need close follow up with sales trader after discharge. Assessment and plan reviewed with Dr. Leal.
[2024-05-19] MEDS: Ferrous Sulfate 325 MG Tablet PO ×2 (12:20→17:09)
[2024-05-19] MEDS: Bumetanide 0.5 MG Tablet 1 MG PO (17:09)
[2024-05-19] MEDS: Ezetimibe 10 MG Tablet PO (21:07)
[2024-05-19] MEDS: Doxazosin 4 MG Tablet 8 MG PO (21:08)
[2024-05-19] MEDS: Atorvastatin Calcium 80 MG Tablet PO (21:08)
[2024-05-20] VITALS (10 sets, daily range): BP systolic 130–164; BP diastolic 67–95; PULSE 85–105; RESP 18–20; TEMP 36.3–36.6; O2SAT 90–98; BMI 22.8
--- NOTE | 2024-05-20 04:55 | EKG12_ITS ---
Test Reason : AM EKG Blood Pressure : */* mmHG Vent. Rate : 91 BPM Atrial Rate : * BPM P-R Int : * ms QRS Dur : 108 ms QT Int : 394 ms P-R-T Axes : * 74 210 degrees QTcB Int : 484 ms Atrial fibrillation with premature ventricular or aberrantly conducted complexes Left ventricular hypertrophy with repolarization abnormality ( Arnold product ) Cannot rule out Septal infarct , age undetermined Abnormal ECG When compared with ECG of 14-May-2024 15:31, Atrial fibrillation has replaced Sinus rhythm QT has lengthened Confirmed by KAYODE DIAZ, SUNG ([id number]), senior editor FUENTES MUELLER ([id number]) on 05/21/2024 1:01:15 PM Referred By: Confirmed By: SUNG HEADLEY MD
--- NOTE | 2024-05-20 05:01 | PCM.HOSP.N ---
Hospitalist Note Patient with episodes VT, longest 10 beats, occurring several episodes in a row, will obtain mag, will dose patient early with his cardizem. Patient was asymptomatic.
[2024-05-20] MEDS: dilTIAZem CD 180 MG Capsule PO (05:16)
[2024-05-20] MEDS: hydrALAZINE 50 MG Tablet 100 MG PO ×3 (05:16→21:47)
[2024-05-20] MEDS: Sodium Bicarbonate 650 MG Tablet 1300 MG PO ×3 (05:16→21:47)
[2024-05-20 05:44] LABS: Absolute Lymphocyte Count 0.36 X10^3/uL (0.83-4.51); Absolute Neutrophil Count 9.8 X10^3/uL (2.0-7.7); Basophil# 0.03 X10^3/uL; Basophil% 0.3 % (0-1); Hematocrit 29.6 % (40-54); Hemoglobin 9.8 g/dL (13.0-16.5); Lymphocyte # 0.36 X10^3/ul (0.83-4.51); Lymphocyte % 3.4 % (19-41); Mean Corp Hgb Conc 33.1 g/dL (32-36); Mean Corpuscular Hgb 31.1 pg (27.0-32.0); Mean Platelet Vol. 10.2 fl (6.2-12.0); Monocyte% 1.9 % (0-10); NRBC Flagged by Analyzer 0 % (0-5); Neutrophil # 9.77 X10^3/uL (2.7-7.7); Neutrophil % 92.9 % (47-70); POSITIVE DIFFERENTIAL YES; Platelet Count 281 K/mm3 (150-450); RBC Distribution Width SD 51.7 fl (35.1-43.9); Red Blood Count 3.15 M/mm3 (4.6-6.2); White Blood Count 10.5 K/mm3 (4.4-11.0)
[2024-05-20 06:23] LABS: Magnesium 2.9 mg/dL (1.5-2.2)
[2024-05-20 06:25] LABS: Anion Gap 18 (5-15); BUN 101 mg/dL (4-19); BUN/Creat Ratio 31.3 RATIO (10-20); Calcium,Total 7.5 mg/dL (7.6-11.0); Carbon Dioxide 24.3 mmol/L (21.0-32.0); Chloride 97 mmol/L (98-108); Creatinine, Serum 3.23 mg/dL (0.70-1.20); EST Glomerular Filtration Rate 19 (>60); Estimated Creatinine Clearance 18.21 ml/min (50-250); Glucose 207 mg/dL (70-99); Potassium 3.4 mmol/L (3.3-5.1); Sodium Level 140 mmol/L (133-145)
[2024-05-20] MEDS: PIRFENIDONE 801 MG PO ×3 (08:43→18:30)
[2024-05-20] MEDS: Carvedilol 3.125 MG TABLET PO (08:43)
[2024-05-20] MEDS: Multivitamins,Ther W-Minerals Tablet 1 TABLET PO (08:43)
[2024-05-20] MEDS: amLODIPine 10 MG Tablet PO (08:44)
[2024-05-20] MEDS: Lactobacillis Acidophilus 1 CAP PO ×4 (08:44→21:47)
[2024-05-20] MEDS: Pantoprazole Sodium 40 MG Tablet PO (08:45)
[2024-05-20] MEDS: Finasteride 5 MG Tablet PO (08:45)
[2024-05-20] MEDS: Sertraline 50 MG Tablet PO (08:45)
[2024-05-20] MEDS: Piperacil/Tazobactam 3.375 GM in 0.9% Normal Saline (50mL MB+) 50 ML IV ×2 (08:46→21:49)
--- NOTE | 2024-05-20 10:10 | PCM.PN.REN ---
Subjective Subjective Patient sitting on side of bed. Had episode of V. tach 10 beats this morning. Mag 2.9. Denies any chest pain or shortness of breath Objective Data Objective Data Vital Signs: Vital Signs Temp Pulse Resp BP Pulse Ox O2 Del Method O2 Flow Rate 97.7 F L 97 18 164/95 H 97 High Flow 7 05/20/24 08:36 05/20/24 08:36 05/20/24 08:36 05/20/24 08:36 05/20/24 08:36 05/20/24 08:36 05/20/24 08:36 FiO2 50 05/15/24 12:00 Oxygen Flow Rate (L/min) 7 Oxygen Delivery Method High Flow Weight: 68.3 kg Body Mass Index (BMI) 22.8 Intake & Output: Intake and Output for Last 24 Hours 05/18/24 05/19/24 05/20/24 23:59 23:59 23:59 Intake Total 1500 / 1800 2050 / 2050 50 / 50 Output Total 1150 / 1400 800 / 800 300 / 300 Balance 350 / 400 1250 / 1250 -250 / -250 Lab / Micro Data 05/20/24 05:25 05/20/24 05:25 Labs: Laboratory Results - last 24 hr 05/20/24 05:25: WBC 10.5, RBC 3.15 L, Hgb 9.8 L, Hct 29.6 L, MCV 94.0, MCH 31.1, MCHC 33.1, RDW Std Deviation 51.7 H, RDW Coeff of Lisa 15.0 H, Plt Count 281, MPV 10.2, Immature Gran % (Auto) 1.500 H, Neut % (Auto) 92.9 H, Lymph % (Auto) 3.4 L, [place] % (Auto) 1.9, Eos % (Auto) 0.0, Baso % (Auto) 0.3, Absolute Neuts (auto) 9.8 H, Absolute Lymphs (auto) 0.36 L, Nucleated RBC % 0, Sodium 140, Potassium 3.4, Chloride 97 L, Carbon Dioxide 24.3, Anion Gap 18 H, BUN 101 H*, Creatinine 3.23 H, Estim Creat Clear Calc 18.21 L, Est GFR (MDRD) Non-Af 19 L, BUN/Creatinine Ratio 31.3 H, Glucose 207 H, Calcium 7.5 L, Magnesium 2.9 H Micro: Microbiology 05/17/24 08:25 Stool Stool Occult Blood (LEONA) - Final Occult Blood Positive 05/14/24 15:25 Mucosa - Nose SARS-CoV-2, Influenza & RSV (PCR) - Final Physical Exam Narrative Alert awake oriented x 3 no obvious distress s1s2 no murmurs lungs clear anteriorly. Diminished breath sounds. No rales or rhonchi abdomen soft no edema Assessment & Plan Assessment/Plan (1) Chronic kidney disease, stage IV (severe): PLAN: - BRAYDON on CKD stage 4; Cr close to baseline on admission. He was started on bumex gtt on admission, SCr up to 3.07, bumex gtt stopped and transition to Bumex 1mg po bid (this is home dose). Because of rising SCr oral bumex stopped. SCr 3.07--> SCr 3.19--> SCr 3.23 yesterday therefore we restarted back on oral bumex. Serum creatinine 3.23 today, BUN 101, hemoglobin 9.8, bumex back on hold for now. Overall renal function stable. 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 - History of IPF - follows with pulmonology thru [facility] in [place]. Last seen first week of May. Started pulmonary rehab in [place] first week of May. He was supposed to enroll in trial for IPF at [facility] as per last pulmonology note. O2 via nasal cannula anywhere from 4 to 6 L (this is O2 requirement at home for patient). Clinically he does not look fluid overloaded, no edema. Per cumulative I&O patient is net -1L. Weight yesterday 68 kg, today 68.3 kg, weight up slightly this am but volume status appears compensated, no peripheral edema. - Episode of V. tach this morning. Patient on oral Cardizem. Mag 2.9. Continue holding bumetanide - + FOBT, acute on chronic anemia. GI consulted. Hgb 9.8 today. At time of hospital discharge will arrange for nephrology follow-up in [place] office. Patient will need close follow up with electrical wirer after discharge. Assessment and plan reviewed with Dr. Leal.
--- NOTE | 2024-05-20 12:00 | PN_ITS ---
Subjective Subjective Patient seen and examined. He had no active complaints. He denied any cough, chest pain, palpitations, dizziness, nausea, vomiting or any other symptoms. Review of systems is otherwise negative. Per his nurse, patient had several episodes of nonsustained vtach. Objective Data Objective Data Vital Signs: Vital Signs Temp Pulse Resp BP Pulse Ox O2 Del Method O2 Flow Rate 97.7 F L 97 18 164/95 H 97 High Flow 7 05/20/24 08:36 05/20/24 08:36 05/20/24 08:36 05/20/24 08:36 05/20/24 08:36 05/20/24 08:45 05/20/24 08:45 FiO2 50 05/15/24 12:00 Oxygen Flow Rate (L/min) 7 Oxygen Delivery Method High Flow Weight: 150 lb 9.211 oz Body Mass Index (BMI) 22.8 Intake & Output: Intake and Output for Last 24 Hours 05/18/24 05/19/24 05/20/24 23:59 23:59 23:59 Intake Total 1500 / 1800 2049 / 2049 50 / 50 Output Total 1150 / 1400 800 / 800 300 / 300 Balance 350 / 400 1250 / 1250 -250 / -250 Lab / Micro Data 05/20/24 05:25 05/20/24 05:25 Labs: Laboratory Results - last 24 hr 05/20/24 05:25: WBC 10.5, RBC 3.15 L, Hgb 9.8 L, Hct 29.6 L, MCV 94.0, MCH 31.1, MCHC 33.1, RDW Std Deviation 51.7 H, RDW Coeff of Lisa 15.0 H, Plt Count 281, MPV 10.2, Immature Gran % (Auto) 1.500 H, Neut % (Auto) 92.9 H, Lymph % (Auto) 3.4 L , [place] % (Auto) 1.9, Eos % (Auto) 0.0, Baso % (Auto) 0.3, Absolute Neuts (auto) 9.8 H, Absolute Lymphs (auto) 0.36 L, Nucleated RBC % 0, Sodium 140, Potassium 3.4, Chloride 97 L, Carbon Dioxide 24.3, Anion Gap 18 H, BUN 101 H*, Creatinine 3.23 H, Estim Creat Clear Calc 18.21 L, Est GFR (MDRD) Non-Af 19 L, B UN/Creatinine Ratio 31.3 H, Glucose 207 H, Calcium 7.5 L, Magnesium 2.9 H Micro: Microbiology 05/17/24 08:25 Stool Stool Occult Blood (LEONA) - Final Occult Blood Positive 05/14/24 15:25 Mucosa - Nose SARS-CoV-2, Influenza & RSV (PCR) - Final Physical Exam Const alert, oriented x3, no apparent distress and well nourished General Appearance: cooperative and well developed HEENT normocephalic, head/scalp atraumatic, moist oral mucous membranes and oropharynx normal Eyes PERRL and EOMs intact bilaterally Neck supple and no JVD Lymph Lymphatic: no lymphadenopathy noted and no lymphedema noted Resp Resp Narrative: diminished breath sounds bibasally, no wheezing, few crackles. on 6 L of oxygen by nasal canula Cardio regular rate, regular rhythm, S1 normal heart sound, S2 normal heart sound and no murmurs GI normal to inspection, nondistended, normoactive bowel sounds, soft to palpation, non-tender and non-distended Extremity normal capillary refill, no clubbing, cyanosis or edema and no calf tenderness General Extremity: no tenderness to palpation of joints or extremities Skin General Skin Exam: no breakdown Neuro CN's II-XII intact bilaterally, no focal motor deficits and no sensory deficits noted Motor Exam: strength 5/5 throughout and general weakness Psych thought process normal and cooperative Appearance: appropriate Assessment & Plan Assessment/Plan (1) Acute on chronic hypoxic respiratory failure: (2) Acute exacerbation of chronic heart failure: (3) Chronic kidney disease, stage IV (severe): PLAN: Plan #Acute on chronic hypoxic respiratory failure due to acute on chronic exacerbation of HFrEF * admitted with a complaint Of shortness of breath. * proBNP was elevated at over 37,000. Chest x-ray showed evidence of fluid overload. * Now off bumex drip and PO bumex also held as Cr is up to 3.07 and also patient is down to his baseline oxygen. * titrate oxygen to maintain sats >90%; breathing treatment with bronchodilators. * CXR showed cardiomegaly and CHF with small bilateral pleural effusions and bibasilar atelectasis * he had a 2D echo done on 04/27/2024 which showed EF of 50-55% and unable to assess diastolic dysfunction, with no regional wall motion abnormalities noted. * bumex now on hold due to worsening kidney function * * #Elevated troponins, likely due to demand ischemia from heart failure. * 2D echo from 04/28/2024 as above. * Currently stable and down to 6 L of oxygen. May have been due to demand ischemia from heart failure. * cardiology consulted; per cardiology, no further workup required for his elevated troponin. * #Nonsustained vtach * patient had recurrent episodes of nonsustained Vtach per telemetry overnight. Patient is asymptomatic * mg is >2 and potassium is 3.4 * cardiology informed as they were already on board; cardiology will see patient again today. Acute on chronic anemia: * Hemoglobin is 9.8. * Continue to monitor closely and transfuse if Hb is less than 7. * He does have a history of GI bleed * stool for occult blood positive * With his respiratory status, question whether patient would even be able to tolerate an EGD or colonoscopy. * Hemoglobin is around his baseline. * His last EGD was in November 2022 which showed 3 nonbleeding angiodysplastic lesions in the stomach which were biopsied and chronic gastritis with hemorrhage. * Colonoscopy in November 2022 showed nonbleeding internal hemorrhoids and 3 sessile polyps as well as diverticulosis. * GI consulted. Await rec's * #CKD IV: * Cr today is up to 3.23 today and BUN is 101. * was on bumex drip which was discontinued * PO bumex held * nephrology on board * #History of pulmonary fibrosis * on pirfenidone. * counseled that he will benefit from close follow up with his pulmonology team at [facility] for evaluation of his pulmonary fibrosis. * #CAD s/p CABG x 4 * on aspirin, high intensity statin, ezetimibe and carvedilol * #History of A-fib: * On Cardizem and metoprolol. Not on anticoagulation due to history of GI bleed #Benign essential hypertension:on clonidine, hydralazine and Bumex. BUmex held due to CKD IV. #Hyperlipidemia: On ezetimibe and statin. #History of bilateral carotid artery stenosis * s/p left common carotid artery stent and right carotid endarterectomy. * #Depression: On sertraline #BPH: On doxazosin # History of CAD: Stable DVT prophylaxis: dc lovenox as stool for occult blood is positive Disposition: dc home when medically stable. Charges/Coding Visit Charges Inpatient E&M: 15611 Subs Hosp L2
[2024-05-20] MEDS: Potassium Chloride Oral Tablet 20 MEQ 40 MEQ PO (12:12)
[2024-05-20] MEDS: Ferrous Sulfate 325 MG Tablet PO ×2 (12:13→18:30)
[2024-05-20] MEDS: Bisacodyl 5 MG Tablet 20 MG PO (18:35)
[2024-05-20] MEDS: Carvedilol 6.25 MG Tablet PO (18:36)
[2024-05-20] MEDS: Polyethylene Glycol 3350 BOWEL PREP PO (20:09)
[2024-05-20] MEDS: Atorvastatin Calcium 80 MG Tablet PO (21:47)
[2024-05-20] MEDS: Ezetimibe 10 MG Tablet PO (21:47)
[2024-05-20] MEDS: Doxazosin 4 MG Tablet 8 MG PO (21:48)
[2024-05-21] VITALS (11 sets, daily range): BP systolic 121–163; BP diastolic 56–69; PULSE 80–102; RESP 18–24; TEMP 35.8–36.7; O2SAT 8–95; BMI 23.2
[2024-05-21 05:39] LABS: Absolute Lymphocyte Count 0.71 X10^3/uL (0.83-4.51); Absolute Neutrophil Count 11.7 X10^3/uL (2.0-7.7); Eosinophil# 0.06 X10^3/uL; Eosinophils% 0.4 % (0-5); Hematocrit 26.8 % (40-54); Hemoglobin 8.9 g/dL (13.0-16.5); Lymphocyte # 0.71 X10^3/ul (0.83-4.51); Lymphocyte % 5.3 % (19-41); Mean Corp Hgb Conc 33.2 g/dL (32-36); Mean Corpuscular Hgb 31.6 pg (27.0-32.0); Mean Platelet Vol. 9.9 fl (6.2-12.0); NRBC Flagged by Analyzer 0 % (0-5); Neutrophil # 11.67 X10^3/uL (2.7-7.7); Neutrophil % 87.1 % (47-70); Platelet Count 255 K/mm3 (150-450); RBC Distribution Width CV 15.4 % (11.6-14.6); RBC Distribution Width SD 53.1 fl (35.1-43.9); Red Blood Count 2.82 M/mm3 (4.6-6.2); White Blood Count 13.4 K/mm3 (4.4-11.0)
--- NOTE | 2024-05-21 05:55 | EKG12_ITS ---
Test Reason : VTACH MONITOR Blood Pressure : */* mmHG Vent. Rate : 105 BPM Atrial Rate : * BPM P-R Int : * ms QRS Dur : 118 ms QT Int : 372 ms P-R-T Axes : * 74 216 degrees QTcB Int : 491 ms Atrial fibrillation with rapid ventricular response with premature ventricular or aberrantly conducted complexes Left ventricular hypertrophy with QRS widening and repolarization abnormality ( Sherman product , Romhilt-Lamb ) Abnormal ECG No previous ECGs available Confirmed by KAYODE DIAZ, SUNG ([id number]), index editor FUENTES MUELLER ([id number]) on 05/21/2024 1:03:45 PM Referred By: Confirmed By: SUNG HEADLEY MD
[2024-05-21 06:22] LABS: Anion Gap 18 (5-15); BUN/Creat Ratio 34.3 RATIO (10-20); Calcium,Total 7.3 mg/dL (7.6-11.0); Carbon Dioxide 26.4 mmol/L (21.0-32.0); Chloride 97 mmol/L (98-108); Creatinine, Serum 3.21 mg/dL (0.70-1.20); EST Glomerular Filtration Rate 19 (>60); Estimated Creatinine Clearance 18.35 ml/min (50-250); Glucose 153 mg/dL (70-99); Potassium 3.1 mmol/L (3.3-5.1); Sodium Level 141 mmol/L (133-145)
[2024-05-21 06:27] LABS: BUN 110 mg/dL (4-19)
--- NOTE | 2024-05-21 09:47 | PN.HOSP_ITS ---
Reason for Visit Reason for Visit: Diagnoses Hypertensive heart and chronic kidney disease with heart failure and stage 1 through stage 4 chronic kidney disease, or unspecified chronic kidney disease (05/14/24) Secondary pulmonary arterial hypertension (05/14/24) Heart failure, unspecified (05/14/24) Idiopathic pulmonary fibrosis (05/14/24) Acute and chronic respiratory failure with hypoxia (05/14/24) Chronic kidney disease, stage 4 (severe) (05/14/24) Other specified abnormal findings of blood chemistry (05/14/24) Subjective Subjective Saw patient at bedside this morning. Patient was sitting at the edge of the bed and did have mild increased work of breathing noted as he had recently got up to go to the restroom and back. He noted that this has been fairly consistent for him. Otherwise feels well, no new concerns today. Objective Data Objective Data Vital Signs: Vital Signs Temp Pulse Resp BP Pulse Ox O2 Del Method O2 Flow Rate 96.5 F L 85 20 H 135/56 H 94 High Flow 7 05/21/24 03:47 05/21/24 03:47 05/21/24 03:47 05/21/24 03:47 05/21/24 03:47 05/21/24 08:00 05/21/24 03:47 FiO2 50 05/15/24 12:00 Oxygen Flow Rate (L/min) 7 Oxygen Delivery Method High Flow Weight: 69.3 kg Body Mass Index (BMI) 23.2 Intake & Output: Intake and Output for Last 24 Hours 05/19/24 05/20/24 05/21/24 23:59 23:59 23:59 Intake Total 2049 / 2049 100 / 100 50 / 50 Output Total 800 / 800 625 / 625 Balance 1250 / 1250 -525 / -525 50 / 50 Lab / Micro Data 05/21/24 04:52 05/21/24 04:52 Labs: Laboratory Results - last 24 hr 05/21/24 04:52: WBC 13.4 H, RBC 2.82 L, Hgb 8.9 L, Hct 26.8 L, MCV 95.0 H, MCH 31.6, MCHC 33.2, RDW Std Deviation 53.1 H, RDW Coeff of Lisa 15.4 H, Plt Count 255, MPV 9.9, Immature Gran % (Auto) 1.200 H, Neut % (Auto) 87.1 H, Lymph % (Auto) 5.3 L, [place] % (Auto) 6.0, Eos % (Auto) 0.4, Baso % (Auto) 0.0, Absolute Neuts (auto) 11.7 H, Absolute Lymphs (auto) 0.71 L, Nucleated RBC % 0, Sodium 141, Potassium 3.1 L, Chloride 97 L, Carbon Dioxide 26.4, Anion Gap 18 H, BUN 110 H*, Creatinine 3.21 H, Estim Creat Clear Calc 18.35 L, Est GFR (MDRD) Non-Af 19 L, BUN/Creatinine Ratio 34.3 H, Glucose 153 H, Calcium 7.3 L Micro: Microbiology 05/17/24 08:25 Stool Stool Occult Blood (LEONA) - Final Occult Blood Positive 05/14/24 15:25 Mucosa - Nose SARS-CoV-2, Influenza & RSV (PCR) - Final Physical Exam Const alert, oriented x3, no apparent distress and average body habitus Constitutional Narrative: Pleasant elderly male, mildly fatigued appearing, otherwise sitting comfortably at the edge of the bed, answering questions appropriately, in no acute distress. General Appearance: cooperative and comfortable HEENT normocephalic, head/scalp atraumatic, hearing grossly normal bilaterally, nasal mucous membranes and turbinates normal and moist oral mucous membranes Eyes PERRL, EOMs intact bilaterally and conjunctivae normal Neck full ROM Chest inspection of chest normal Resp normal respiratory effort and no use of accessory muscles Resp Narrative: Breathing comfortably on 7 L nasal cannula at rest. Moderately decreased breath sounds bilaterally with basilar crackles noted, no wheezing noted. Cardio regular rate, regular rhythm, no murmurs and peripheral pulses 2+ throughout GI normal to inspection, nondistended, normoactive bowel sounds, soft to palpation, non-tender and non-distended Back/Spine normal ROM Extremity normal to inspection, full ROM and no pedal edema Skin no rashes or lesions noted Psych mental status grossly normal Assessment & Plan Assessment/Plan (1) Acute on chronic respiratory failure: (2) Acute heart failure with preserved ejection fraction (HFpEF): PLAN: Plan Patient is a 78-year-old male who presented [facility] [place] ED on 05/14/2024 with worsening shortness of breath. 1. Acute on chronic hypoxic respiratory failure suspected due to acute HFpEF exacerbation in setting of pulmonary fibrosis ? Presented with worsening shortness of breath. BNP greater than 37,000 and chest x-ray showed evidence of volume overload. Recent echo on 04/27/2024 showed EF 50 to 55%, unable to assess diastolic dysfunction, no regional wall motion abnormalities noted. Treated with Bumex drip with significant urine output and then transitioned to p.o. Bumex. However, has had worsening kidney function and nephrology is following as below. Continuing to hold Bumex at this time. He has been stable on 6-8 L at rest but continues to have significant desaturations with exertion. Continue treatment with scheduled bronchodilators and wean supplemental oxygen as able. Continue home pirfenidone. 2. Elevated troponins ? Cardiology followed. Strongly suspect this is secondary to demand ischemia in setting of heart failure. No need for further cardiac workup at this time. 3. Nonsustained V. tach ? Cardiology followed as above. Patient had recurrent episodes of nonsustained V. tach on telemetry on evening of 05/19. Was asymptomatic with these episodes. Magnesium and potassium normal. Will continue home Coreg, no further workup required. Continue cardiac monitoring. 4. Acute on chronic anemia ? GI following. Baseline hemoglobin appears to be around 9. There was concern the patient had a dark bowel movement and stool occult test was positive. Patient had colonoscopy prep done with plan for colonoscopy on 05/21. However, per Dr. Foss colonoscopy was unable to be completed due to worsening oxygen requirements with light sedation and ongoing hypoxia. Will continue to monitor CBC daily at this time. 5. Elevated creatinine in setting of CKD stage IV ? Nephrology following. Baseline creatinine appears to be around 2.5. Had worsening of creatinine up to 3.07 with IV Bumex and was transitioned to p.o. Bumex. However serum creatinine continued to worsen up to 3.2 with worsening BUN so p.o. Bumex was held on 05/19. Creatinine and BUN remaining stable but not improving. Continue to hold Bumex per nephrology. Appreciate further nephrology recommendations. Chronic medical conditions: ? History of CAD s/p CABG x 4, hypertension, hyperlipidemia, history of bilateral carotid artery stenosis s/p left common carotid artery stenting and right carotid endarterectomy: Continue home aspirin, statin, amlodipine, Coreg, diltiazem, Imdur, hydralazine and doxazosin. ? Paroxysmal A-fib: Continue home Cardizem and Coreg. Not on anticoagulation due to history of GI bleed. ? BPH with obstructive symptoms: Continue home doxazosin. ? Depression: Continue home sertraline. DVT prophylaxis: SCDs CODE STATUS: Full code, unverified Expected disposition: Home, 1 to 2 days Total clinical time spent by myself addressing the patient's medical issues, reviewing all the data, and collaborating with patient's care team: 35 minutes. Charges/Coding Visit Charges Inpatient E&M: 41902 Subs Hosp L2
--- NOTE | 2024-05-21 10:35 | PCM.PN.REN ---
Documented by User: DARIN Sheehan 05/21/24 11:38 Subjective Subjective Sitting on edge of bed. Denies any overnight events. states breathing is about the same. Objective Data Objective Data Vital Signs: Vital Signs Temp Pulse Resp BP Pulse Ox O2 Del Method O2 Flow Rate 96.5 F L 85 20 H 135/56 H 94 High Flow 7 05/21/24 03:47 05/21/24 03:47 05/21/24 03:47 05/21/24 03:47 05/21/24 03:47 05/21/24 08:00 05/21/24 03:47 FiO2 50 05/15/24 12:00 Oxygen Flow Rate (L/min) 7 Oxygen Delivery Method High Flow Weight: 69.3 kg Body Mass Index (BMI) 23.2 Intake & Output: Intake and Output for Last 24 Hours 05/19/24 05/20/24 05/21/24 23:59 23:59 23:59 Intake Total 0 / 0 100 / 100 50 / 50 Output Total 800 / 800 625 / 625 Balance 1250 / 1250 -525 / -525 50 / 50 Lab / Micro Data 05/21/24 04:52 05/21/24 04:52 Labs: Laboratory Results - last 24 hr 05/21/24 04:52: WBC 13.4 H, RBC 2.82 L, Hgb 8.9 L, Hct 26.8 L, MCV 95.0 H, MCH 31.6, MCHC 33.2, RDW Std Deviation 53.1 H, RDW Coeff of Lisa 15.4 H, Plt Count 255, MPV 9.9, Immature Gran % (Auto) 1.200 H, Neut % (Auto) 87.1 H, Lymph % (Auto) 5.3 L, [place] % (Auto) 6.0, Eos % (Auto) 0.4, Baso % (Auto) 0.0, Absolute Neuts (auto) 11.7 H, Absolute Lymphs (auto) 0.71 L, Nucleated RBC % 0, Sodium 141, Potassium 3.1 L, Chloride 97 L, Carbon Dioxide 26.4, Anion Gap 18 H, BUN 110 H*, Creatinine 3.21 H, Estim Creat Clear Calc 18.35 L, Est GFR (MDRD) Non-Af 19 L, BUN/Creatinine Ratio 34.3 H, Glucose 153 H, Calcium 7.3 L Micro: Microbiology 05/17/24 08:25 Stool Stool Occult Blood (LEONA) - Final Occult Blood Positive 05/14/24 15:25 Mucosa - Nose SARS-CoV-2, Influenza & RSV (PCR) - Final Physical Exam Narrative Alert awake oriented x 3 no obvious distress s1s2 no murmurs lungs clear anteriorly and posteriorly. No wheezes, rales or rhonchi. On O2 abdomen soft no edema Assessment & Plan Assessment/Plan (1) Chronic kidney disease, stage IV (severe): PLAN: - BRAYDON on CKD stage 4; Cr close to baseline on admission. He was started on bumex gtt on admission, SCr up to 3.07, bumex gtt stopped and transition to Bumex 1mg po bid (this is home dose). Because of rising SCr oral bumex stopped. SCr 3.07--> SCr 3.19--> SCr 3.23 therefore we restarted back on oral bumex. Yesterday bumex put back on hold, patient had episode of VT and BUN elevated. Serum creatinine 3.21 today, BUN 110, hemoglobin 8.9, will continue holding Bumex again today. Overall renal function stable, volume status stable. No acute indication for [employer]. Noted slowly rising BUN however patient does have positive fecal occult blood and he was on IV steroids. Will continue to monitor - History of IPF - follows with pulmonology thru [facility] in [place]. Last seen first week of May. Started pulmonary rehab in [place] first week of May. He was supposed to enroll in trial for IPF at [facility] as per last pulmonology note. O2 via nasal cannula anywhere from 4 to 6 L (this is O2 requirement at home for patient). Clinically he does not look fluid overloaded, no edema. Per cumulative I&O patient is net -1L. Weight up slightly this am but volume status appears compensated, no peripheral edema and patient has been n.p.o along with having diarrhea for procedures today. - + FOBT, acute on chronic anemia. Seen by GI, to undergo EGD, colonoscopy today. Hemoglobin 8.9 today. At time of hospital discharge will arrange for nephrology follow-up in [place] office. Patient will need close follow up with apartment groundskeeper after discharge. Assessment and plan reviewed with Dr. Leal. Documented by User: Dr. Gris Leal MD 05/21/24 21:37 Objective Data Lab / Micro Data 05/21/24 04:52 05/21/24 04:52 Assessment & Plan Assessment/Plan (1) Chronic kidney disease, stage IV (severe): PLAN: - BRAYDON on CKD stage 4; Cr close to baseline on admission. He was started on bumex gtt on admission, SCr up to 3.07, bumex gtt stopped and transition to Bumex 1mg po bid (this is home dose). Because of rising SCr oral bumex stopped. SCr 3.07--> SCr 3.19--> SCr 3.23 therefore we restarted back on oral bumex. Yesterday bumex put back on hold, patient had episode of VT and BUN elevated. Serum creatinine 3.21 today, BUN 110, hemoglobin 8.9, will continue holding Bumex again today. Overall renal function stable, volume status stable. No acute indication for [employer]. Noted slowly rising BUN however patient does have positive fecal occult blood and he was on IV steroids. Will continue to monitor - History of IPF - follows with pulmonology thru [facility] in [place]. Last seen first week of May. Started pulmonary rehab in [place] first week of May. He was supposed to enroll in trial for IPF at [facility] as per last pulmonology note. O2 via nasal cannula anywhere from 4 to 6 L (this is O2 requirement at home for patient). Clinically he does not look fluid overloaded, no edema. Per cumulative I&O patient is net -1L. Weight up slightly this am but volume status appears compensated, no peripheral edema and patient has been n.p.o along with having diarrhea for procedures today. - + FOBT, acute on chronic anemia. Seen by GI, to undergo EGD, colonoscopy today. Hemoglobin 8.9 today. At time of hospital discharge will arrange for nephrology follow-up in [place] office. Patient will need close follow up with apartment groundskeeper after discharge. Assessment and plan reviewed with Dr. Leal. Addendum seen and examined independently dw spouse at bedside not much edema clinically still on 10L likely progression of ILD they have been notified by pulmonology at [facility] that there is no trials available prognosis appears to be poor, this was explained to resume bumex
--- NOTE | 2024-05-21 12:43 | SUR.PREOP ---
pt spo2 80s% when on 8l high flow oxygen via n/c. oxygen increased to 10l. spo2 then varied high 80s to high 90s. spo2 97 percent when pt asleep. when awake spo2 drops to mid 80s to low 90s. dr dash and anesthesia aware and pt is cancelled for today. notified charge nurse on pcu.
[2024-05-21] MEDS: dilTIAZem CD 180 MG Capsule PO (14:17)
[2024-05-21] MEDS: amLODIPine 10 MG Tablet PO (14:18)
[2024-05-21] MEDS: Pantoprazole Sodium 40 MG Tablet PO (14:18)
[2024-05-21] MEDS: Sertraline 50 MG Tablet PO (14:19)
[2024-05-21] MEDS: Lactobacillis Acidophilus 1 CAP PO ×3 (14:20→21:02)
[2024-05-21] MEDS: hydrALAZINE 50 MG Tablet 100 MG PO ×2 (14:20→20:57)
[2024-05-21] MEDS: Ferrous Sulfate 325 MG Tablet PO ×2 (14:20→17:01)
[2024-05-21] MEDS: Sodium Bicarbonate 650 MG Tablet 1300 MG PO ×2 (14:21→20:57)
[2024-05-21] MEDS: Finasteride 5 MG Tablet PO (14:25)
[2024-05-21] MEDS: PIRFENIDONE 801 MG PO ×2 (14:27→19:09)
[2024-05-21] MEDS: Piperacil/Tazobactam 3.375 GM in 0.9% Normal Saline (50mL MB+) 50 ML IV ×2 (14:38→22:25)
[2024-05-21] MEDS: Carvedilol 6.25 MG Tablet PO (17:01)
[2024-05-21] MEDS: Ezetimibe 10 MG Tablet PO (20:58)
[2024-05-21] MEDS: Doxazosin 4 MG Tablet 8 MG PO (20:58)
[2024-05-21] MEDS: Atorvastatin Calcium 80 MG Tablet PO (20:59)
--- NOTE | 2024-05-21 22:11 | PCM.HOSP.N ---
Hospitalist Note Patient with increased oxygen needs, 9 L nasal cannula, discussed with respiratory therapy and will place on Airvo at this time.
[2024-05-21] MEDS: 0.9% Saline Lock 10 ML Syringe IV (22:25)
--- NOTE | 2024-05-21 22:41 | CPS ---
Patient placed on Airvo due to increasing oxygen needs
[2024-05-22] VITALS (19 sets, daily range): BP systolic 117–158; BP diastolic 50–81; PULSE 66–147; RESP 14–36; TEMP 36.2–36.9; O2SAT 84–100; BMI 23.3
--- NOTE | 2024-05-22 00:11 | RAD_ITS ---
PROCEDURE: CHEST 1 VIEW (PORTABLE) 05/22/2024 REASON FOR EXAM: INCREASED OXYGEN REQUIREMENTS TECHNIQUE: Frontal view of the chest. COMPARISON: Chest radiograph dated 05/15/2024. FINDINGS: Hardware: Sternotomy wires are present. Heart: Heart size is mildly enlarged. Lungs: Prominent bilateral interstitial markings with patchy bibasilar airspace opacities and bibasilar opacification. No pneumothorax. Bones: Degenerative changes are identified within the thoracic spine. Other: RAD/Chest 1 View (Portable) IMPRESSION: Patchy bibasilar pulmonary infiltrates with bibasilar opacification, likely rep resenting effusion/atelectasis. Cardiomegaly. Reading Location: [facility]
[2024-05-22 00:36] LABS: Allen Test Positive; Base Excess 7 mmol/L (-2 to +2); Bicarbonate 29.4 mmol/L (22-26); Blood Gas Specimen Type ART; Comment 50l 50; Mode Not entered; O2 Delivery Device HFNC; PO2 78 mmHG (75-100); SITE R Radial; SO2 97 % (95-99); Total Carbon Dioxide 31 mmol/L; pH 7.53 (7.35-7.45)
[2024-05-22] MEDS: Sodium Bicarbonate 650 MG Tablet 1300 MG PO ×2 (05:39→13:34)
[2024-05-22] MEDS: hydrALAZINE 50 MG Tablet 100 MG PO ×2 (05:39→13:33)
[2024-05-22 06:00] LABS: Absolute Lymphocyte Count 0.66 X10^3/uL (0.83-4.51); Absolute Neutrophil Count 9.7 X10^3/uL (2.0-7.7); Basophil# 0.02 X10^3/uL; Basophil% 0.2 % (0-1); Eosinophil# 0.27 X10^3/uL; Eosinophils% 2.4 % (0-5); Hemoglobin 8.5 g/dL (13.0-16.5); Lymphocyte # 0.66 X10^3/ul (0.83-4.51); Lymphocyte % 5.8 % (19-41); Mean Corp Hgb Conc 32.7 g/dL (32-36); Mean Corpuscular Hgb 31.3 pg (27.0-32.0); Mean Corpuscular Volume 95.6 fL (80-94); Mean Platelet Vol. 10.1 fl (6.2-12.0); Monocyte% 5.3 % (0-10); NRBC Flagged by Analyzer 0 % (0-5); Neutrophil # 9.66 X10^3/uL (2.7-7.7); Platelet Count 206 K/mm3 (150-450); RBC Distribution Width CV 15.7 % (11.6-14.6); RBC Distribution Width SD 53.7 fl (35.1-43.9); Red Blood Count 2.72 M/mm3 (4.6-6.2); White Blood Count 11.4 K/mm3 (4.4-11.0)
[2024-05-22 06:28] LABS: Anion Gap 17 (5-15); BUN 97 mg/dL (4-19); BUN/Creat Ratio 33.1 RATIO (10-20); Calcium,Total 7.2 mg/dL (7.6-11.0); Carbon Dioxide 25.1 mmol/L (21.0-32.0); Chloride 100 mmol/L (98-108); Creatinine, Serum 2.93 mg/dL (0.70-1.20); EST Glomerular Filtration Rate 21 (>60); Glucose 103 mg/dL (70-99); Potassium 2.8 mmol/L (3.3-5.1); Sodium Level 141 mmol/L (133-145)
[2024-05-22] MEDS: dilTIAZem CD 180 MG Capsule PO (08:18)
[2024-05-22] MEDS: Carvedilol 6.25 MG Tablet PO ×2 (08:18→09:11)
[2024-05-22] MEDS: Potassium Chloride 10mEq/100mL 10 MEQ/100 ML IV.SOLN. 100 MEQ IV BOLUS ×4 (08:27→12:33)
[2024-05-22] MEDS: Bumetanide 1 MG/4 ML Vial IV (08:37)
--- NOTE | 2024-05-22 08:58 | CPS ---
Pt is a mouth breather, Airvo is now maxed at 60L and 90% plus 100% NRB mask. It is hard to obtain his Pulse-ox d/t his Afib.
[2024-05-22 09:17] LABS: Magnesium 2.4 mg/dL (1.5-2.2)
--- NOTE | 2024-05-22 11:17 | ECHOL_ITS ---
Reason For Study Reason For Study: CHF Procedure This was a limited 2D transthoracic echocardiogram. Exam performed portable in patient room. Left Ventricle Normal LV size. Severe concentric left ventricular hypertrophy. The left ventricular ejection fraction is 50 %. No regional wall motion abnormalities noted. Right Ventricle Normal RV size. Normal systolic function. Atria The left atrium is mildly enlarged. Normal right atrium. Mitral Valve Bileaflet diffuse mitral valve thickening. Tricuspid Valve Normal tricuspid valve. Aortic Valve Trisinus/trileaflet aortic valve. Moderate focal aortic valve calcification. Pulmonic Valve Normal pulmonic valve. Great Vessels Normal sized aortic root. The pulmonary artery is normal size. Normal inferior vena cava. Pericardium/Pleural No pericardial effusion. MMode/2D Measurements & Calculations LVIDd: 4.6 cm IVSd: 1.9 cm LAV(MOD- bp): 82.1 ml LVIDs: 3.7 cm LVPWd: 1.6 cm LAV(MOD- bp) Indexed: 45.0 ml/m2 RVDd: 4.0 cm FS: 19.4 % LAV(MOD- sp2): 86.1 ml LAV(MOD- sp4): 77.4 ml SV(MOD-sp4): 67.7 ml SV(sp4- el): 66.6 ml LVAd ap4: 34.3 cm2 LVLd ap4: 7.8 cm SI(MOD-sp4): 37.1 ml/m2 EDV(MOD-sp4): 131.3 ml EDV(sp4-el): 128.3 ml LVAs ap4: 22.0 cm2 LVLs ap4: 6.6 cm ESV(MOD-sp4): 63.6 ml ESV(sp4-el): 61.6 ml EF(MOD-sp4): 51.5 % EF(sp4-el): 51.9 % LA A4 area: 23.0 cm2 RA A4 area: 21.0 cm2 ECHO/Echo, Limited Study Interpretation Summary Normal LV size. Severe concentric left ventricular hypertrophy. The left ventricular ejection fraction is 50 %. The left atrium is mildly enlarged. Ordering Physician: Susana Quintana Referring Physician: Virginie Lockhart Performed By: Bernadette Greenwood, IMAN, RVT
--- NOTE | 2024-05-22 11:52 | PN.RENAL_ITS ---
Subjective Subjective Patient had increased oxygen needs overnight, now on Airvo. Granddaughter at bedside with patient. Family meeting with hospice. Objective Data Objective Data Vital Signs: Vital Signs Temp Pulse Resp BP Pulse Ox O2 Del Method O2 Flow Rate 98.0 F 87 24 H 155/57 H 100 Non-Rebreather 60 05/22/24 08:58 05/22/24 08:58 05/22/24 08:58 05/22/24 08:58 05/22/24 08:58 05/22/24 08:58 05/22/24 08:58 FiO2 90 05/22/24 08:58 Oxygen Flow Rate (L/min) 60 Oxygen Delivery Method Non-Rebreather Weight: 69.7 kg Body Mass Index (BMI) 23.3 Intake & Output: Intake and Output for Last 24 Hours 05/20/24 05/21/24 05/22/24 23:59 23:59 23:59 Intake Total 100 / 100 580 / 580 250 / 250 Output Total 625 / 625 100 / 100 250 / 250 Balance -525 / -525 480 / 480 0 / 0 Lab / Micro Data 05/22/24 05:20 05/22/24 05:20 Labs: Laboratory Results - last 24 hr 05/22/24 05:20: WBC 11.4 H, RBC 2.72 L, Hgb 8.5 L, Hct 26.0 L, MCV 95.6 H, MCH 31.3, MCHC 32.7, RDW Std Deviation 53.7 H, RDW Coeff of Lisa 15.7 H, Plt Count 206, MPV 10.1, Immature Gran % (Auto) 1.300 H, Neut % (Auto) 85.0 H, Lymph % (Auto) 5.8 L, [place] % (Auto) 5.3, Eos % (Auto) 2.4, Baso % (Auto) 0.2, Absolute Neuts (auto) 9.7 H, Absolute Lymphs (auto) 0.66 L, Nucleated RBC % 0, Sodium 141, Potassium 2.8 L, Chloride 100, Carbon Dioxide 25.1, Anion Gap 17 H, BUN 97 H, Creatinine 2.93 H, Estim Creat Clear Calc 20.10 L, Est GFR (MDRD) Non-Af 21 L , BUN/Creatinine Ratio 33.1 H, Glucose 103 H, Calcium 7.2 L, Magnesium 2.4 H Micro: Microbiology 05/22/24 02:00 Nasal Secretion MRSA (PCR) - Final 05/17/24 08:25 Stool Stool Occult Blood (LEONA) - Final Occult Blood Positive 05/14/24 15:25 Mucosa - Nose SARS-CoV-2, Influenza & RSV (PCR) - Final ABG Data ABG results: ABG 05/22/24 00:31 Specimen Type ART Sample Site R Radial pH 7.53 H Bicarbonate Actual 29.4 H Total CO2 31 Base Excess 7 H O2 Saturation 97 O2 % 55.0 ABG pCO2 35.0 ABG pO2 78 Jamel Test Positive O2 Delivery Device HFNC Vent Mode Not entered Clinical Comments 50l 50 Radiography Diagnostic Testing: Radiology Impression Chest X-Ray 05/22/24 00:11 IMPRESSION: Patchy bibasilar pulmonary infiltrates with bibasilar opacification, likely representing effusion/atelectasis. Cardiomegaly. Reading Location: [facility] Physical Exam Narrative Drowsy, sitting in recliner chair, opens eyes s1s2 no murmurs Diminished breath sounds with scattered rales. On Airvo abdomen soft no pitting edema b/l legs Assessment & Plan Assessment/Plan (1) Chronic kidney disease, stage IV (severe): PLAN: - BRAYDON on CKD stage 4; Cr close to baseline on admission. He was started on bumex gtt on admission then transitioned to oral Bumex but these were both eventually put on hold due to rising BUN and creatinine. Oxygenation worsened now on Bumex drip. Patient has history of IPF (follows with pulmonology thru [facility] in [place]) and likely has progression of interstitial lung disease. Notified by pulmonology [facility] no trials available. Bumex was resumed now on Bumex drip. Family met with Dr. Quintana and hospice this am and have elected hospice with no aggressive measures. Will sign off, please contact us if needed. Assessment and plan reviewed with Dr. Escobar.
[2024-05-22] MEDS: Pantoprazole Sodium 40 MG Tablet PO ×2 (13:31→13:33)
[2024-05-22] MEDS: amLODIPine 10 MG Tablet PO (13:31)
[2024-05-22] MEDS: Acetaminophen 325 MG Tablet 650 MG PO (13:31)
[2024-05-22] MEDS: Finasteride 5 MG Tablet PO (13:31)
[2024-05-22] MEDS: Sertraline 50 MG Tablet PO (13:32)
[2024-05-22] MEDS: PIRFENIDONE 801 MG PO ×2 (13:32→17:01)
[2024-05-22] MEDS: Lactobacillis Acidophilus 1 CAP PO ×2 (13:33→17:01)
[2024-05-22] MEDS: Ferrous Sulfate 325 MG Tablet PO ×2 (13:33→17:02)
[2024-05-22] MEDS: Piperacil/Tazobactam 3.375 GM in 0.9% Normal Saline (50mL MB+) 50 ML IV ×2 (13:40→21:00)
--- NOTE | 2024-05-22 14:00 | PN_ITS ---
Subjective Subjective Patient seen and examined. Patient was much more short of breath today and was requiring Airvo at 90% FiO2 and 60 L. He got very visibly short of breath with slight exertion. Patient was also tachycardic with intermittent episodes of bradycardia. He denied any chest pain or palpitations but admitted to the shortness of breath. I did try to clarify with patient about his CODE STATUS and whether he would want CPR or intubation. Patient said he did not know what he wanted and requested that I call his so she could make decisions for him. Review of systems otherwise negative. Objective Data Objective Data Vital Signs: Vital Signs Temp Pulse Resp BP Pulse Ox O2 Del Method O2 Flow Rate 98.0 F 66 24 H 155/57 H 100 Non-Rebreather 60 05/22/24 08:58 05/22/24 13:33 05/22/24 08:58 05/22/24 08:58 05/22/24 08:58 05/22/24 08:58 05/22/24 08:58 FiO2 90 05/22/24 08:58 Oxygen Flow Rate (L/min) 60 Oxygen Delivery Method Non-Rebreather Weight: 153 lb 10.595 oz Body Mass Index (BMI) 23.3 Intake & Output: Intake and Output for Last 24 Hours 05/20/24 05/21/24 05/22/24 23:59 23:59 23:59 Intake Total 100 / 100 580 / 580 450 / 450 Output Total 625 / 625 100 / 100 250 / 250 Balance -525 / -525 480 / 480 200 / 200 Lab / Micro Data 05/22/24 05:20 05/22/24 05:20 Labs: Laboratory Results - last 24 hr 05/22/24 05:20: WBC 11.4 H, RBC 2.72 L, Hgb 8.5 L, Hct 26.0 L, MCV 95.6 H, MCH 31.3, MCHC 32.7, RDW Std Deviation 53.7 H, RDW Coeff of Lisa 15.7 H, Plt Count 206, MPV 10.1, Immature Gran % (Auto) 1.300 H, Neut % (Auto) 85.0 H, Lymph % (Auto) 5.8 L, [place] % (Auto) 5.3, Eos % (Auto) 2.4, Baso % (Auto) 0.2, Absolute Neuts (auto) 9.7 H, Absolute Lymphs (auto) 0.66 L, Nucleated RBC % 0, Sodium 141, Potassium 2.8 L, Chloride 100, Carbon Dioxide 25.1, Anion Gap 17 H, BUN 97 H, Creatinine 2.93 H, Estim Creat Clear Calc 20.10 L, Est GFR (MDRD) Non-Af 21 L , BUN/Creatinine Ratio 33.1 H, Glucose 103 H, Calcium 7.2 L, Magnesium 2.4 H Micro: Microbiology 05/22/24 02:00 Nasal Secretion MRSA (PCR) - Final 05/17/24 08:25 Stool Stool Occult Blood (LEONA) - Final Occult Blood Positive 05/14/24 15:25 Mucosa - Nose SARS-CoV-2, Influenza & RSV (PCR) - Final ABG Data ABG results: ABG 05/22/24 00:31 Specimen Type ART Sample Site R Radial pH 7.53 H Bicarbonate Actual 29.4 H Total CO2 31 Base Excess 7 H O2 Saturation 97 O2 % 55.0 ABG pCO2 35.0 ABG pO2 78 Jamel Test Positive O2 Delivery Device HFNC Vent Mode Not entered Clinical Comments 50l 50 Radiography Diagnostic Testing: Radiology Impression Chest X-Ray 05/22/24 00:11 IMPRESSION: Patchy bibasilar pulmonary infiltrates with bibasilar opacification, likely representing effusion/atelectasis. Cardiomegaly. [facility] Physical Exam Const alert Constitutional Narrative: very frail and weak. General Appearance: cooperative HEENT normocephalic and head/scalp atraumatic Mouth: dry mucous membranes Eyes PERRL and EOMs intact bilaterally Neck no lymphadenopathy and supple Lymph Lymphatic: no lymphadenopathy noted Resp Resp Narrative: moderately diminished breath sounds bibasally, no wheezes or crackles. On AirVo with FiO2 of 90% at 60L/min. Cardio regular rhythm, S1 normal heart sound, S2 normal heart sound and no murmurs Cardio Narrative: intermittent nonsustained vtach GI normal to inspection, nondistended, normoactive bowel sounds, soft to palpation, non-tender and non-distended Extremity normal capillary refill, no clubbing, cyanosis or edema and no calf tenderness General Extremity: no tenderness to palpation of joints or extremities Neuro CN's II-XII intact bilaterally, no focal motor deficits and no sensory deficits noted Motor Exam: general weakness Psych thought process normal and cooperative Psych Narrative: very weak and frail. Appearance: appropriate Assessment & Plan Assessment/Plan (1) Acute on chronic hypoxic respiratory failure: (2) Acute exacerbation of chronic heart failure: (3) Cardiorenal syndrome: QUALIFIERS: Heart failure presence: with heart failure H ypertensive chronic kidney disease stage: stage 1-4 or unspecified chronic kidney disease Qualified Code(s): I13.0 - Hypertensive heart and chronic kidney disease with heart failure and stage 1 through stage 4 chronic kidney disease, or unspecified chronic kidney disease PLAN: Plan #Acute on chronic hypoxic respiratory failure due to acute on chronic exacerbation of HFrEF * admitted with a complaint Of shortness of breath. * proBNP was elevated at over 37,000. Chest x-ray showed evidence of fluid overload. * was weaned down from Airvo to oxygen by nasal canula 6L. * Bumex was also held as kidney function was worsening. * Now off bumex drip and PO bumex also held as Cr is up to 3.07 and also patient is down to his baseline oxygen. * he had a 2D echo done on 04/27/2024 which showed EF of 50-55% and unable to assess diastolic dysfunction, with no regional wall motion abnormalities noted. * Patient became acutely short of breath again overnight and required Airvo. He is now on Airvo 60 L with FiO2 90%. Chest x-ray done early * This done showed evidence of bilateral pleural effusions. * Bumex started again this morning. * I had an extensive discussion with patient about CODE STATUS. I counseled patient that this was going to be a recurring issue as he often got fluid overloaded and got better with diuresis but kidney function worsened and so diuretics had to be held which were resulted in him getting fluid overloaded again. This vicious cycle is likely to pertain in light of his impaired kidney function. Patient said he did not know what he wanted wanted me to speak to his to make decisions for him. * I did speak to patient's Rita Zimmer who stated that she had shielded the patient from the severity of his illness because he was quite nervous and she did not want him to worry excessively. She knew she wanted patient to be comfortable but wanted to come into the hospital to discussed with patient about CODE STATUS. * I did meet with patient's , his daughter and son as well as his [id number] and son-in-law and some other relatives. I had an extensive discussion with family in the presence of Tiffany gamboa's nurse. I counseled them extensively about patient's poor prognosis in light of his worsening kidney function and cardiorenal syndrome as well as recurrent pleural effusion because he could not diurese properly. I discussed CODE STATUS with him. Family asked about dialysis and I informed them that this would be a decision for nephrology to make. However they did veer towards making patient comfortable and eventually came to the understanding that patient was very sick and frail and that there were essentially postponing the inevitable. Their concern was whether patient could transport with hospice to hospice medical facility in light of his high oxygen requirements. He had been told by hospice were been consulted with patient's 's permission that they could only transport him if he was requiring less than 15 L of oxygen. I explained to them that if they were agreeable to changing CODE STATUS then we could initiate the hospice order set here and would only transfer patient to hospice once he was medically stable enough. They were agreeable to this and asked to meet with the hospice nurse again. They signed papers with hospice and patient's CODE STATUS was switched to DNR CC. * Hospice order set initiated. * Pulmonology was consulted about consult consult since patient is now DNR CC and has signed up with hospice. * #Elevated troponins, likely due to demand ischemia from heart failure. * 2D echo from 04/28/2024 as above. * Currently stable and down to 6 L of oxygen. May have been due to demand ischemia from heart failure. * cardiology consulted; per cardiology, no further workup required for his elevated troponin. #Nonsustained vtach * patient had recurrent episodes of nonsustained Vtach per telemetry overnight and also this morning. He also goes into bradycardia with heart rate going down to the 30s and 40s. * Patient is asymptomatic * I discussed with cardiology was on consult. Discussion with Dr. Springer, will increase patient's carvedilol to 12.5 mg twice daily. Of note he was increased to 6.25 mg twice daily by cardiology 2 days ago after I discussed the nonsustained V. tach with them. * 2D echo done during this admission as above. * To keep magnesium more than 2 and potassium more than 4. * Acute on chronic anemia: * Hemoglobin is 9.8. * Continue to monitor closely and transfuse if Hb is less than 7. * He does have a history of GI bleed * stool for occult blood positive * With his respiratory status, question whether patient would even be able to tolerate an EGD or colonoscopy. * Hemoglobin is around his baseline. * His last EGD was in November 2022 which showed 3 nonbleeding angiodysplastic lesions in the stomach which were biopsied and chronic gastritis with hemorrhage. * Colonoscopy in November 2022 showed nonbleeding internal hemorrhoids and 3 sessile polyps as well as diverticulosis. * GI on board. He did have EGD yesterday. Report of EGD is not yet in the EMR. * #CKD IV: * Cr today is up to 3.23 today and BUN is 101. * was on bumex drip which was discontinued * PO bumex held * nephrology on board #History of pulmonary fibrosis * on pirfenidone. * counseled that he will benefit from close follow up with his pulmonology team at [facility] for evaluation of his pulmonary fibrosis. * #CAD s/p CABG x 4 * on aspirin, high intensity statin, ezetimibe and carvedilol * #History of A-fib: * On Cardizem and metoprolol. Not on anticoagulation due to history of GI bleed * #Benign essential hypertension:on clonidine, hydralazine and Bumex. BUmex held due to CKD IV. #Hyperlipidemia: On ezetimibe and statin. #History of bilateral carotid artery stenosis * s/p left common carotid artery stent and right carotid endarterectomy. * #Depression: On sertraline #BPH: On doxazosin # History of CAD: Stable DVT prophylaxis: dc lovenox as stool for occult blood is positive Disposition: * CODE STATUS switched to DNR CC. * Hospice order set initiated. * Patient to be transferred to hospice medical facility if his oxygen requirements improve and he is stable to be transported. * Total time spent on goals of care and code status discussion with family: 25 mins Charges/Coding Visit Charges Inpatient E&M: 63375 Subs Hosp L3 Procedures Hospitalists Procedures: 93891 Advncd Care Plan 30 Min
[2024-05-22] MEDS: Carvedilol 12.5 MG Tablet PO (17:58)
--- NOTE | 2024-05-22 23:20 | PCM.HOSP.N ---
Hospitalist Note Patient agitated, attempting to pull off his airvo and access, will administer trial dose haldol x 1 given likely difficult to attempt oral option at this time.
[2024-05-22] MEDS: Haloperidol Lactate 5 MG/ML Vial 1 MG IV (23:35)
[2024-05-22] MEDS: 0.9% Saline Lock 10 ML Syringe IV (23:36)
[2024-05-23] MEDS: Haloperidol Lactate 5 MG/ML Vial 1 MG IV (00:55)
[2024-05-23 01:06] VITALS: O2SAT 100
--- NOTE | 2024-05-23 01:38 | CPS ---
Pt has been restless, taken oxygen off a few times. Pt was medicated twice for comfort. For oxygen pt goes back and forth between Airvo and NRB mask. Whichever he tolerates best at the time.
[2024-05-23 05:14] VITALS: BMI 25.6
[2024-05-23 05:36] LABS: Absolute Lymphocyte Count 0.44 X10^3/uL (0.83-4.51); Absolute Neutrophil Count 12.7 X10^3/uL (2.0-7.7); Basophil# 0.01 X10^3/uL; Basophil% 0.1 % (0-1); Eosinophils% 2.1 % (0-5); Hematocrit 24.7 % (40-54); Hemoglobin 7.9 g/dL (13.0-16.5); Lymphocyte # 0.44 X10^3/ul (0.83-4.51); Lymphocyte % 3.1 % (19-41); Mean Corpuscular Hgb 30.9 pg (27.0-32.0); Mean Corpuscular Volume 96.5 fL (80-94); Mean Platelet Vol. 10.7 fl (6.2-12.0); Monocyte# 0.65 X10^3/uL; Monocyte% 4.6 % (0-10); NRBC Flagged by Analyzer 0 % (0-5); Neutrophil # 12.68 X10^3/uL (2.7-7.7); Neutrophil % 89.1 % (47-70); POSITIVE DIFFERENTIAL YES; Platelet Count 181 K/mm3 (150-450); RBC Distribution Width CV 15.6 % (11.6-14.6); RBC Distribution Width SD 54.6 fl (35.1-43.9); Red Blood Count 2.56 M/mm3 (4.6-6.2); White Blood Count 14.2 K/mm3 (4.4-11.0)
[2024-05-23 05:56] VITALS: BP 125/59; PULSE 75
[2024-05-23 06:19] LABS: Anion Gap 18 (5-15); BUN 97 mg/dL (4-19); BUN/Creat Ratio 31.3 RATIO (10-20); Calcium,Total 7.2 mg/dL (7.6-11.0); Carbon Dioxide 24.3 mmol/L (21.0-32.0); Chloride 99 mmol/L (98-108); Creatinine, Serum 3.09 mg/dL (0.70-1.20); EST Glomerular Filtration Rate 20 (>60); Estimated Creatinine Clearance 19.06 ml/min (50-250); Glucose 130 mg/dL (70-99); Potassium 3.3 mmol/L (3.3-5.1); Sodium Level 141 mmol/L (133-145)
[2024-05-23] MEDS: Piperacil/Tazobactam 3.375 GM in 0.9% Normal Saline (50mL MB+) 50 ML IV ×2 (08:38→21:08)
[2024-05-23 08:48] VITALS: PULSE 89; RESP 18; O2SAT 100
--- NOTE | 2024-05-23 09:35 | PN.HOSP_ITS ---
Subjective Subjective Plan for hospice discharge Objective Data Objective Data Vital Signs: Vital Signs Temp Pulse Resp BP Pulse Ox O2 Del Method O2 Flow Rate 97.9 F 82 21 H 149/71 H 96 High Flow 12 05/23/24 10:43 05/24/24 05:59 05/23/24 21:07 05/24/24 05:59 05/23/24 21:07 05/24/24 02:00 05/24/24 02:00 FiO2 60 05/22/24 23:20 Oxygen Flow Rate (L/min) 12 Oxygen Delivery Method High Flow Weight: 148 lb 9.465 oz Body Mass Index (BMI) 22.6 Intake & Output: Intake and Output for Last 24 Hours 05/23/24 05/24/24 05/25/24 03:59 03:59 03:59 Intake Total 1220 / 1220 540 / 540 60 / 60 Output Total 250 / 250 450 / 450 0 / 0 Balance 970 / 970 90 / 90 60 / 60 Lab / Micro Data 05/23/24 04:43 05/23/24 04:43 Micro: Microbiology 05/22/24 02:00 Nasal Secretion MRSA (PCR) - Final 05/17/24 08:25 Stool Stool Occult Blood (LEONA) - Final Occult Blood Positive 05/14/24 15:25 Mucosa - Nose SARS-CoV-2, Influenza & RSV (PCR) - Final Physical Exam Narrative General: Alert, Cooperative, No apparent distress HEENT: Atraumatic, PERRLA, EOMI, Normocephalic Oral: Moist Mucosa Neck: Supple, No JVD Lungs: Diminished, Normal air movement, rhonchi, No wheeze, No rales Cardiovascular: Irregular rate and rhythm, Normal S1, Normal S2, No murmurs Abdomen: Soft, Non Tender, Non-Distended, No Hepato-splenomegaly Extremities: Trace edema, Capillary Refill Less than 3 Seconds Skin: No rashes, No breakdown Musculoskeletal: No Tenderness to Palpation of Joints or Extremities Neurological: No focal neurological deficits, moves all extremities Psych/Mental Status: Flat Assessment & Plan Assessment/Plan (1) Acute on chronic hypoxic respiratory failure: (2) Acute exacerbation of chronic heart failure: (3) Cardiorenal syndrome: QUALIFIERS: Heart failure presence: with heart failure H ypertensive chronic kidney disease stage: stage 1-4 or unspecified chronic kidney disease Qualified Code(s): I13.0 - Hypertensive heart and chronic kidney disease with heart failure and stage 1 through stage 4 chronic kidney disease, or unspecified chronic kidney disease PLAN: Plan #Acute on chronic hypoxic respiratory failure due to acute on chronic exacerbation of HFrEF * admitted with a complaint Of shortness of breath. * proBNP was elevated at over 37,000. Chest x-ray showed evidence of fluid overload. * was weaned down from Airvo to oxygen by nasal canula 6L. * Bumex was also held as kidney function was worsening. * Now off bumex drip and PO bumex also held as Cr is up to 3.07 and also patient is down to his baseline oxygen. * he had a 2D echo done on 04/27/2024 which showed EF of 50-55% and unable to assess diastolic dysfunction, with no regional wall motion abnormalities noted. * Patient became acutely short of breath again overnight and required Airvo. He is now on Airvo 60 L with FiO2 90%. Chest x-ray done early * This done showed evidence of bilateral pleural effusions. * Bumex started again this morning. * I had an extensive discussion with patient about CODE STATUS. I counseled patient that this was going to be a recurring issue as he often got fluid overloaded and got better with diuresis but kidney function worsened and so diuretics had to be held which were resulted in him getting fluid overloaded again. This vicious cycle is likely to pertain in light of his impaired kidney function. Patient said he did not know what he wanted wanted me to speak to his to make decisions for him. * I did speak to patient's Rita Zimmer who stated that she had shielded the patient from the severity of his illness because he was quite nervous and she did not want him to worry excessively. She knew she wanted patient to be comfortable but wanted to come into the hospital to discussed with patient about CODE STATUS. * I did meet with patient's , his daughter and son as well as his [id number] and son-in-law and some other relatives. I had an extensive discussion with family in the presence of Tiffany agmboa's nurse. I counseled them extensively about patient's poor prognosis in light of his worsening kidney function and cardiorenal syndrome as well as recurrent pleural effusion because he could not diurese properly. I discussed CODE STATUS with him. Family asked about dialysis and I informed them that this would be a decision for nephrology to make. However they did veer towards making patient comfortable and eventually came to the understanding that patient was very sick and frail and that there were essentially postponing the inevitable. Their concern was whether patient could transport with hospice to hospice medical facility in light of his high oxygen requirements. He had been told by hospice were been consulted with patient's 's permission that they could only transport him if he was requiring less than 15 L of oxygen. I explained to them that if they were agreeable to changing CODE STATUS then we could initiate the hospice order set here and would only transfer patient to hospice once he was medically stable enough. They were agreeable to this and asked to meet with the hospice nurse again. They signed papers with hospice and patient's CODE STATUS was switched to DNR CC. * 05/23/2024: Plan was for discharge to hospice however they inappropriately delayed transfer indicating that they needed to reevaluate the hospice appropriate patient therefore hospice care was delayed by 24 hours we will plan to discharge tomorrow #Elevated troponins, likely due to demand ischemia from heart failure. * 2D echo from 04/28/2024 as above. * Currently stable and down to 6 L of oxygen. May have been due to demand ischemia from heart failure. * cardiology consulted; per cardiology, no further workup required for his elevated troponin. #Nonsustained vtach * patient had recurrent episodes of nonsustained Vtach per telemetry overnight and also this morning. He also goes into bradycardia with heart rate going down to the 30s and 40s. * Patient is asymptomatic * I discussed with cardiology was on consult. Discussion with Dr. Springer, will increase patient's carvedilol to 12.5 mg twice daily. Of note he was increased to 6.25 mg twice daily by cardiology 2 days ago after I discussed the nonsustained V. tach with them. * 2D echo done during this admission as above. * To keep magnesium more than 2 and potassium more than 4. Acute on chronic anemia: * Hemoglobin is 9.8. * Continue to monitor closely and transfuse if Hb is less than 7. * He does have a history of GI bleed * stool for occult blood positive * With his respiratory status, question whether patient would even be able to tolerate an EGD or colonoscopy. * Hemoglobin is around his baseline. * His last EGD was in November 2022 which showed 3 nonbleeding angiodysplastic lesions in the stomach which were biopsied and chronic gastritis with hemorrhage. * Colonoscopy in November 2022 showed nonbleeding internal hemorrhoids and 3 sessile polyps as well as diverticulosis. * GI on board. He did have EGD yesterday. Report of EGD is not yet in the EMR. #CKD IV: * Cr today is up to 3.23 today and BUN is 101. * was on bumex drip which was discontinued * PO bumex held * nephrology on board #History of pulmonary fibrosis * on pirfenidone. * counseled that he will benefit from close follow up with his pulmonology team at [facility] for evaluation of his pulmonary fibrosis. #CAD s/p CABG x 4 * on aspirin, high intensity statin, ezetimibe and carvedilol #History of A-fib: * On Cardizem and metoprolol. Not on anticoagulation due to history of GI bleed #Benign essential hypertension:on clonidine, hydralazine and Bumex. BUmex held due to CKD IV. #Hyperlipidemia: On ezetimibe and statin. #History of bilateral carotid artery stenosis * s/p left common carotid artery stent and right carotid endarterectomy. * #Depression: On sertraline #BPH: On doxazosin # History of CAD: Stable Charges/Coding Visit Charges Inpatient E&M: 19984 Subs Hosp L2
--- NOTE | 2024-05-23 10:01 | DCINST_ITS ---
Discharge Instructions Diet Discharge Diet: No restrictions DC O2, CPAP, BIPAP needs Home O2 Discharge instructions: No Follow Up Care Test Results: Test results from this visit will be discussed in further detail at your follow- up appointment, if applicable. Discharge Plan Admission Admit Date/Time: 05/14/24 21:03 Attending Provider: Zac Brown Primary Care Provider: Virginie Lockhart Consulting Providers: Simón Vasques; Kristine Harmon; Jose Black; John Salter; David Cain; Suman Castanon; Adonay Villanueva; Lazaro Garcia; Aidee Goodman; Edwin Branham; Karl Dunbar; Sixto Echeverria NP; Marcie Ball; Sav Sol; Gris Leal; Susana Quintana; Daron Sarabia; Simón Thompson; Anastasiia Cardozo; Ansley Kraft; Anna Spicer; Christine Herman NP; Shama Ndiaye; Mark Duffy; Jame Mcgregor; Simón Mo; Ian Rogers; Simón Moran; Justin Hercules; Benjamin Ortiz; Katherine Hoover; Olivier Murphy; Derrek Jensen; Mauro Ching; Keeley Ross; Kasandra Dahl; Linda Gilman; Pascual Ulrich; Eliud Moreno; Raphael Fernandez; Dre Moon; Randy Milan; Juliane Moreira; Juan Antonio Mcnamara; Lopez Damon; Jeremiah Peña Discharge Orders/Prescriptions Prescriptions: New furosemide 10 mg/mL Solution 40 mg PO/SL DAILY PRN PRN (Reason: crackles or wet cough) Qty: 0 0RF Continued nitroglycerin 0.4 mg tablet, sublingual 0.4 mg SL PRN PRN (Reason: Angina) Qty: 25 3RF ferrous sulfate [Feosol] 325 mg (65 mg iron) tablet 325 mg PO BID pirfenidone 267 mg tablet 801 mg PO TID Patient Comments: WEEK: QTY: PLEASE SEE ATTACHED INSTRUCTIONS hydralazine 100 mg tablet 100 mg PO TID Qty: 270 3RF Rx Instructions: Hold for SBP less than 130 mmHg Men's 50 Plus Multivitamin 400-20-370 mcg tablet 1 tab PO QDAY bumetanide 1 mg tablet 1 mg PO BID aspirin 81 MG tablet,chewable 81 mg PO QHS sodium bicarbonate 650 mg tablet 1,300 mg PO TID diltiazem HCl 180 mg Capsule,Extended Release 24hr 180 mg PO DAILY Qty: 30 0RF clonidine 0.3 mg/24 hr Patch Weekly 0.3 mg transdermal Q7D Qty: 4 0RF fluticasone propionate [Flonase Allergy Relief] 50 mcg/actuation spray,suspension 1 spray intranasal DAILY PRN (Reason: allergy symptoms) Rx Instructions: administer into each nostril ezetimibe 10 mg tablet 10 mg PO QHS Qty: 90 3RF carvedilol 3.125 mg tablet 3.125 mg PO BID Qty: 60 11RF atorvastatin 80 mg tablet 80 mg PO QHS Qty: 90 3RF doxazosin 8 mg tablet 8 mg PO QHS Qty: 90 3RF amlodipine 10 mg tablet 10 mg PO DAILY Qty: 90 0RF isosorbide mononitrate 120 mg tablet extended release 24 hr 120 mg PO QAM Qty: 90 3RF sertraline 50 mg tablet 50 mg PO DAILY Qty: 90 1RF Referrals / Follow Up: Virginie Lockhart MD [Primary Care Provider] - Disposition Disposition (needs filled in before D/C Order can be placed): Hospice in Medical Facility
--- NOTE | 2024-05-23 10:37 | CASEMGMT ---
Addendum entered by Tina Wood 05/23/24 11:33: MERVAT received a call from Nanci at hospice who reports that she spoke with pt and set up a meeting for 5:30 to re-evaluate pt for [facility] appropriateness. If pt remains [facility] appropriate, [facility] has a bed and pt would transport following the evaluation. MERVAT updated bedside nurse and physician. KRYSTLE Oconnor Original Note: Social Work- Physician reports oxygen requirements are under 15L. MERVAT received notice from community center coordinator that hospice is reporting pt is not signed for services. MERVAT called pt who reports that she signed and provided insurance cards at consultation. MERVAT called hospice who shared that they will reach out to the spouse to confirm desire to transport now that pt meets oxygen requirements. They will then set up transport and follow up with MERVAT. MERVAT updated community center coordinator. Plan: Hospice [facility] KRYSTLE Oconnor
[2024-05-23 10:43] VITALS: BP 157/70; PULSE 83; RESP 20; TEMP 36.6; O2SAT 97
--- NOTE | 2024-05-23 14:30 | DS.PCM_ITS ---
Providers Date of Admission: 05/14/24 Primary Care Physician: Dr. Virginie Lockhart MD Consultations 05/14/24 21:46 Consult: Cardiology Routine Consulting Provider: [facility] Reason for Consult: AE of chronic diastolic CHF. EMERGENT Consult: No MD Notified: Yes Date Notified: 05/15/24 Time Notified: 08:00 Method of Notification: Answering Service Consult: Nephrology Routine Consulting Provider: Gris Leal Reason for Consult: CKD stage IV with AE CHF. EMERGENT Consult: No MD Notified: Yes Date Notified: 05/15/24 Time Notified: 06:45 Method of Notification: Answering Service 05/18/24 12:51 Consult: Gastroenterology Routine Consulting Provider: [facility] Reason for Consult: acute on chronic anemia, positive FOBT EMERGENT Consult: No Notified: Yes Date Notified: 05/18/24 Time Notified: 12:51 Method of Notification: Text 05/22/24 08:29 Consult: Hospice / Palliative Care Routine Consulting Provider: [facility] Reason for Consult: end stage lung fibrosis with chronic hypoxic respiratory failure EMERGENT Consult: No Notified: Yes Date Notified: 05/22/24 Time Notified: 08:29 Method of Notification: Answering Service 05/22/24 11:10 Consult: [employer] [facility] Manager / Pulmonary Medicine Routine Consulting Provider: [facility]/Pulmonary [facility] Reason for Consult: acute on chronic hypoxic respiratory failure, recurrent pleural effusion EMERGENT Consult: No Notified: Yes Date Notified: 05/22/24 Time Notified: 11:49 Method of Notification: Text Reason For Visit: ACUTE EXACERBATION OF CHRONIC DIASTOLIC CHF Diagnosis Discharge Diagnosis (1) Acute on chronic hypoxic respiratory failure: Status: Chronic Code(s): J96.21 - Acute and chronic respiratory failure with hypoxia (2) Acute exacerbation of chronic heart failure: Status: Acute Code(s): I50.9 - Heart failure, unspecified (3) Cardiorenal syndrome: Status: Acute Code(s): I13.10 - Hypertensive heart and chronic kidney disease without heart failure, with stage 1 through stage 4 chronic kidney disease, or unspecified chronic kidney disease Qualifiers: Heart failure presence: with heart failure Hypertensive chronic kidney disease stage: stage 1-4 or unspecified chronic kidney disease Qualified Code(s): I13.0 - Hypertensive heart and chronic kidney disease with heart failure and stage 1 through stage 4 chronic kidney disease, or unspecified chronic kidney disease Medications at Discharge Home Medications aspirin 81 mg chewable tablet 81 mg PO QHS Heart 08/03/19 nitroglycerin 0.4 mg sublingual tablet 0.4 mg sublingual PRN PRN Angina #25 tabs 08/14/22 ferrous sulfate 325 mg (65 mg iron) tablet (Feosol) 325 mg PO BID supplement 01/16/23 ezetimibe 10 mg tablet 10 mg PO QHS cholesterol #90 tabs 09/02/23 hydralazine 100 mg tablet 100 mg PO TID blood pressure #270 tabs 09/25/23 pirfenidone 267 mg tablet 801 mg PO TID Pulmonary fibrosis 09/25/23 carvedilol 3.125 mg tablet 3.125 mg PO BID blood pressure #60 tabs 10/17/23 atorvastatin 80 mg tablet 80 mg PO QHS for cholesterol #90 TABLETS 12/23/23 doxazosin 8 mg tablet 8 mg PO QHS prostate #90 tabs 12/25/23 amlodipine 10 mg tablet 10 mg PO DAILY blood pressure #90 tabs 03/03/24 [id number]-ccl-[id number] acid-vit K-lycop 400 mcg-20 mcg-370 mcg tablet (Men's 50 Plus Multivitamin) 1 tab PO QDAY VITAMIN 03/23/24 isosorbide mononitrate 120 mg tablet,extended release 24 hr 120 mg PO QAM this is a dose increase #90 tabs 04/07/24 sodium bicarbonate 650 mg tablet 1,300 mg PO TID kidneys 04/12/24 bumetanide 1 mg tablet 1 mg PO BID CHF 04/23/24 clonidine 0.3 mg/24 hr weekly transdermal patch 0.3 mg transdermal Q7D #4 ea 05/03/24 diltiazem HCl 180 mg capsule,extended release 24 hr 180 mg PO DAILY #30 caps 05/03/24 sertraline 50 mg tablet 50 mg PO DAILY mental health #90 tabs 05/04/24 fluticasone propionate 50 mcg/actuation nasal spray,suspension (Flonase Allergy Relief) 1 spray intranasal DAILY PRN allergy symptoms 05/14/24 furosemide 10 mg/mL oral solution 40 mg (4 mL) PO/SL DAILY PRN PRN crackles or wet cough #0 mL 05/23/24 Hospital Course Operations None Procedures 2-D Echocardiogram Summary of Care Provided Minutes Spent on Discharge: 31 Hospital Course: Per HPI: EKTA ZIMMER, is a 78 M with a past medical history of essential hypertension; on amlodipine, clonidine TTS 0.3 mg patch, hydralazine and bumetanide 1 mg p.o. twice daily, hyperlipidemia; on ezetimibe plus atorvastatin, former history of tobacco abuse x ~42 years (quit ~2009), CAD; s/p CABG x 4 (2012) on ISMO and as needed SL NTG, history of atrial fibrillation; on diltiazem but not on anticoagulation, history of chronic diastolic CHF; with preserved LVEF of ~50% (05/2024), history of TIA/CVA, history of stenosis of the Left subclavian artery, history of bilateral carotid artery stenosis; s/p Left common carotid artery stent (2003) and Right carotid endarterectomy (2016), history of pulmonary fibrosis with ILD; on pirfenidone 3 times daily, chronic hypoxic respiratory failure on 8L nasal cannula at home continuous, history of secondary arterial pulmonary hypertension; currently not on treatment, FRANCISCO JAVIER; on CPAP, CKD; stage IV on sodium bicarbonate 1300 mg p.o. 3 times daily, peripheral vascular disease; s/p angioplasty of peripheral vessel with bilateral internal and external iliac stents, history of varicose veins of both lower extremities, history of bilateral renal artery stenosis; s/p Left/Right stent (), history of GI bleed, JEAN; on ferrous sulfate twice daily, history of diverticulitis, history of hernia; s/p repair, history of basal cell carcinoma; s/p excision (2018), depression; on sertraline, BPH; on doxazosin, allergic rhinitis; on fluticasone propionate daily as needed, history of gout, OA; s/p TKR and recent admission here from April 26, 2024 to May 03, 2024 with initial chief complaints of shortness of breath and lower extremity edema complicated by clinical evidence of acute hypoxic respiratory failure requiring BiPAP with CTA of chest done in ER negative for PE but positive for moderate bilateral pleural effusions with patient started on Lasix for acute exacerbation of chronic diastolic CHF after one of his primary care doctors decrease his bumetanide from twice daily to once daily compounded by suspected pneumonia with sputum cultures eventually growing out Pseudomonas aeruginosa treated initially with Zosyn and then transition of the levofloxacin with patient set up to undergo outpatient Right heart catheterization to evaluate severity of pulmonary hypertension on May 06, 2024 who now re-presents to [facility] ER complaining of shortness of breath. Mr. Zimmer reports his symptoms began earlier this morning when he awakened noting worsening shortness of breath. His explained to the ER physician that they were going to come into the ER at that time but he began to feel better and then suddenly decompensated this afternoon with associated increasing lower extremity edema so they finally decided to come in for further evaluation and treatment. According to the ER physician patient's recent Right heart catheterization revealed only mild secondary arterial pulmonary artery hypertension. He admits to nausea but he denies associated chest pain, syncope, near syncope recent bleeding, recent sick contacts, cough, fever, chills, vomiting or diarrhea. In the ER he was noted to have an elevated NT pro-BNP II of 37,931 pg/mL (up from his previous baseline pro-BNP of 2,775 pg/mL last admission) with chest x-ray revealing cardiomegaly and CHF with small bilateral pleural effusions and bibasilar atelectasis consistent with AE of chronic diastolic CHF; with preserved LVEF with the patient also noted to be be tachypneic with a respiratory rate of 30 and saturating 76% on 6 L nasal cannula but then was switched to high flow oxygen with ABG revealing pH 7.49/pCO2 40.6 mmHg/pO2 67 mmHg/bicarbonate 31.2 mmol/L at 95% on 6L NC consistent with Acute- on Chronic Hypoxic Respiratory Failure complicated by laboratory evidence of CKD stage IV with elevated serum creatinine of 2.72 mg/dL, BUN of 84 mg/dL and eGFR of 23 mL/min along with elevated troponin T levels of 117 ng/L present on admission consistent with suspected Acute Cardiac Strain. He was then started on Airvo and transferred to ICU for ongoing care for status expected to extend beyond 2 midnights. Hospital Course: 1. Acute on chronic hypoxic respiratory failure secondary to acute on chronic systolic CHF/demand ischemia/nonsustained V. tach/CKD 4/CAD status post CABG/A- fib/HLD?78-year-old male presented to the hospital with worsening shortness of breath. He has been hospitalized for approximately 9 days and in that time has deteriorated. With the attempted diuresis with Lasix his renal function has worsened and there is conversations with the family about possible dialysis which they elected not to proceed with. There is multiple hospice conversations over the last couple of days by the previous hospitalist and family elected to proceed with hospice. Unfortunately were not able to be excepted into the IPU secondary to the need for Airvo however today his oxygen requirements are below 15 L nasal cannula so we will plan to discharge to the inpatient unit to have better hospice care. On discharge he can resume all of his home medications at the recommendation of hospice. Physical Exam Narrative General: Alert, Cooperative, No apparent distress HEENT: Atraumatic, PERRLA, EOMI, Normocephalic Oral: Moist Mucosa Neck: Supple, No JVD Lungs: Diminished, Normal air movement, rhonchi, No wheeze, No rales Cardiovascular: Irregular rate and rhythm, Normal S1, Normal S2, No murmurs Abdomen: Soft, Non Tender, Non-Distended, No Hepato-splenomegaly Extremities: Trace edema, Capillary Refill Less than 3 Seconds Skin: No rashes, No breakdown Musculoskeletal: No Tenderness to Palpation of Joints or Extremities Neurological: No focal neurological deficits, moves all extremities Psych/Mental Status: Flat Weight / BMI Weight Weight: 168 lb 6.931 oz Body Mass Index (BMI) 25.6 ABG / Lab / Microbiology Data 05/23/24 04:43 05/23/24 04:43 Laboratory: Laboratory Results - last 24 hr 05/23/24 04:43: WBC 14.2 H, RBC 2.56 L, Hgb 7.9 L, Hct 24.7 L, MCV 96.5 H, MCH 30.9, MCHC 32.0, RDW Std Deviation 54.6 H, RDW Coeff of Lisa 15.6 H, Plt Count 181, MPV 10.7, Immature Gran % (Auto) 1.000 H, Neut % (Auto) 89.1 H, Lymph % (Auto) 3.1 L, [place] % (Auto) 4.6, Eos % (Auto) 2.1, Baso % (Auto) 0.1, Absolute Neuts (auto) 12.7 H, Absolute Lymphs (auto) 0.44 L, Nucleated RBC % 0, Sodium 141, Potassium 3.3, Chloride 99, Carbon Dioxide 24.3, Anion Gap 18 H, BUN 97 H, Creatinine 3.09 H, Estim Creat Clear Calc 19.06 L, Est GFR (MDRD) Non-Af 20 L, B UN/Creatinine Ratio 31.3 H, Glucose 130 H, Calcium 7.2 L Microbiology: Microbiology 05/22/24 02:00 Nasal Secretion MRSA (PCR) - Final 05/17/24 08:25 Stool Stool Occult Blood (LEONA) - Final Occult Blood Positive 05/14/24 15:25 Mucosa - Nose SARS-CoV-2, Influenza & RSV (PCR) - Final Radiography Diagnostic Testing: Radiology Impression Echocardiogram 05/22/24 11:17 Interpretation Summary Normal LV size. Severe concentric left ventricular hypertrophy. The left ventricular ejection fraction is 50 %. The left atrium is mildly enlarged. Ordering Physician: Susana Quintana Referring Physician: Virginie Lockhart Performed By: Bernadette Greenwood, IMAN, RVT D/C Instructions Discharge Diet: No restrictions DC O2, CPAP, BIPAP Needs PSN CPAP & BiPAP: BiPAP & CPAP Settings per PSN Mode AIRVO 05/23/24 01:10 Bipap Delivery Device Nasal Pillows 05/22/24 23:20 Fraction of Inspired Oxygen ( 60 05/22/24 23:20 FIO2) Total Flow Rate 50 05/22/24 23:20 Home O2 Discharge instructions: No Meaningful Use Info Meaningful Use Meaningful Use Diagnoses (Choose all that apply): None applicable Ischemic Stroke Statin Dosing Therapy Reference: STATIN DOSE THERAPY REFERENCE: * Patients > 75 years receive moderate or high dose statin therapy. * Patients 75 years or YOUNGER should receive HIGH intensity statin dose unless contraindicated. You will be required to document reason for non-treatment if statin daily dose does not meet guidelines. HIGH DOSE STATIN THERAPY DAILY Atorvastatin > than or = to 40 mg Rosuvastatin > than or = to 20 mg Amlodipine + Atorvastatin > than or = to 2.5/40 mg Ezetimibe + Simvastatin 10/80 mg Simvastatin 80mg Discharge Plan Admission Admit Date/Time: 05/14/24 21:03 Attending Provider: Zac Brown Primary Care Provider: Virginie Lockhart Consulting Providers: Simón Vasques; Kristine Harmon; Jose Black; John Salter; David Cain; Suman Castanon; Adonay Villanueva; Lazaro Garcia; Aidee Goodman; Edwin Branham; Karl Dunbar; Sixot Echeverria NP; Marcie Ball; Sav Sol; Gris Leal; Susana Quintana; Daron Sarabia; Simón Thompson; Anastasiia Cardozo; Ansley Kraft; Anna Spicer; Christine Herman WEB CONTENT EXECUTIVE; Shama Ndiaye; Mark Duffy; Jame Mcgregor; Simón Mo; Ian Rogers; Simón Moran; Justin Hercules; Benjamin Ortiz; Katherine Hoover; Olivier Murphy; Derrek Jensen; Mauro Ching; Keeley Ross; Kasandra Dahl; Linda Gilman; Serg,Pascual; Eliud Moreno; Raphael Fernandez; Dre Moon; Randy Milan; Juliane Moreira; Juan Antonio Mcnamara; Lopez Damon; Jeremiah Peña Discharge Orders/Prescriptions Prescriptions: New furosemide 10 mg/mL Solution 40 mg PO/SL DAILY PRN PRN (Reason: crackles or wet cough) Qty: 0 0RF Continued nitroglycerin 0.4 mg tablet, sublingual 0.4 mg SL PRN PRN (Reason: Angina) Qty: 25 3RF ferrous sulfate [Feosol] 325 mg (65 mg iron) tablet 325 mg PO BID pirfenidone 267 mg tablet 801 mg PO TID Patient Comments: WEEK: QTY: PLEASE SEE ATTACHED INSTRUCTIONS hydralazine 100 mg tablet 100 mg PO TID Qty: 270 3RF Rx Instructions: Hold for SBP less than 130 mmHg Men's 50 Plus Multivitamin 400-20-370 mcg tablet 1 tab PO QDAY bumetanide 1 mg tablet 1 mg PO BID aspirin 81 MG tablet,chewable 81 mg PO QHS sodium bicarbonate 650 mg tablet 1,300 mg PO TID diltiazem HCl 180 mg Capsule,Extended Release 24hr 180 mg PO DAILY Qty: 30 0RF clonidine 0.3 mg/24 hr Patch Weekly 0.3 mg transdermal Q7D Qty: 4 0RF fluticasone propionate [Flonase Allergy Relief] 50 mcg/actuation spray,suspension 1 spray intranasal DAILY PRN (Reason: allergy symptoms) Rx Instructions: administer into each nostril ezetimibe 10 mg tablet 10 mg PO QHS Qty: 90 3RF carvedilol 3.125 mg tablet 3.125 mg PO BID Qty: 60 11RF atorvastatin 80 mg tablet 80 mg PO QHS Qty: 90 3RF doxazosin 8 mg tablet 8 mg PO QHS Qty: 90 3RF amlodipine 10 mg tablet 10 mg PO DAILY Qty: 90 0RF isosorbide mononitrate 120 mg tablet extended release 24 hr 120 mg PO QAM Qty: 90 3RF sertraline 50 mg tablet 50 mg PO DAILY Qty: 90 1RF Referrals / Follow Up: Virginie Lockhart MD [Primary Care Provider] - Disposition Disposition (needs filled in before D/C Order can be placed): Hospice in Medical Facility Charges/Coding Visit Charges Inpatient E&M: 63443 Disch Hosp >30min
--- NOTE | 2024-05-23 16:41 | NURSING ---
pt drowsy throughout shift, unable to give PO meds
--- NOTE | 2024-05-23 18:52 | NURSING ---
Report called to Alicia at hospice
--- NOTE | 2024-05-23 20:23 | PCM.HOSP.N ---
Hospitalist Note Hospice ride not available until AM.
--- NOTE | 2024-05-23 20:26 | NURSING ---
Family notified of pick-up time of [id number]. Family requested pick-up be moved to AM so pt isn't being transported in the middle of the night. This RN spoke with hospice IPU nurse (Alicia) and Jose with transport. Transport time set up for [id number] on 05/24. Hospitalist Dr. Schultz notified.
[2024-05-23 21:07] VITALS: BP 150/69; PULSE 105; RESP 21; O2SAT 96
[2024-05-23] MEDS: Atorvastatin Calcium 80 MG Tablet PO (21:11)
[2024-05-23 21:12] VITALS: PULSE 105
[2024-05-23] MEDS: Sodium Bicarbonate 650 MG Tablet 1300 MG PO (21:12)
[2024-05-23] MEDS: Doxazosin 4 MG Tablet 8 MG PO (21:12)
[2024-05-23] MEDS: Lactobacillis Acidophilus 1 CAP PO (21:12)
[2024-05-23] MEDS: Ezetimibe 10 MG Tablet PO (21:12)
[2024-05-23] MEDS: hydrALAZINE 50 MG Tablet 100 MG PO (21:12)
[2024-05-24 04:59] VITALS: BMI 22.6
[2024-05-24 05:59] VITALS: BP 149/71; PULSE 82
[2024-05-24] MEDS: Sodium Bicarbonate 650 MG Tablet 1300 MG PO (05:59)
[2024-05-24] MEDS: hydrALAZINE 50 MG Tablet 100 MG PO (05:59)
[2024-05-24 07:56] VITALS: BP 156/58; PULSE 106; RESP 22; TEMP 36.8; O2SAT 89
[2024-05-24] MEDS: Multivitamins,Ther W-Minerals Tablet 1 TABLET PO (09:21)
[2024-05-24] MEDS: Lactobacillis Acidophilus 1 CAP PO (09:21)
[2024-05-24] MEDS: Carvedilol 12.5 MG Tablet PO (09:21)
[2024-05-24] MEDS: dilTIAZem CD 180 MG Capsule PO (09:21)
[2024-05-24] MEDS: amLODIPine 10 MG Tablet PO (09:21)
[2024-05-24] MEDS: Pantoprazole Sodium 40 MG Tablet PO (09:21)
[2024-05-24] MEDS: PIRFENIDONE 801 MG PO (09:22)
[2024-05-24] MEDS: Finasteride 5 MG Tablet PO (09:22)
[2024-05-24] MEDS: Sertraline 50 MG Tablet PO (09:28)
== END 2024-05-24 09:48 | disposition hospice, home (50) | DRG 291 ==
LOC: ED 19:00 → ICU 21:46 → PCU 05-17 17:29
PROVIDERS: Family Medicine; Hospitalist; Student in an Organized Health Care Education/Training Program; Admitting Provider Internal Medicine; Emergency Provider Emergency Medicine; PCP Internal Medicine; Visit Provider Family Medicine
DX: I13.0 Hypertensive heart and chronic kidney disease with heart failure and stage 1 through stage 4 chronic kidney disease, or unspecified chronic kidney disease (principal); J96.21 Acute and chronic respiratory failure with hypoxia; I50.33 Acute on chronic diastolic (congestive) heart failure; I24.89 Other forms of acute ischemic heart disease; N18.4 Chronic kidney disease, stage 4 (severe); I47.20 Ventricular tachycardia, unspecified; N17.9 Acute kidney failure, unspecified; N13.8 Other obstructive and reflux uropathy; I27.21 Secondary pulmonary arterial hypertension; D63.1 Anemia in chronic kidney disease; J84.112 Idiopathic pulmonary fibrosis; I73.9 Peripheral vascular disease, unspecified; F32.A Depression, unspecified; I65.23 Occlusion and stenosis of bilateral carotid arteries; I48.0 Paroxysmal atrial fibrillation; D50.9 Iron deficiency anemia, unspecified; G47.33 Obstructive sleep apnea (adult) (pediatric); I25.10 Atherosclerotic heart disease of native coronary artery without angina pectoris; E78.5 Hyperlipidemia, unspecified; J30.9 Allergic rhinitis, unspecified; F41.9 Anxiety disorder, unspecified; M17.10 Unilateral primary osteoarthritis, unspecified knee; K57.30 Diverticulosis of large intestine without perforation or abscess without bleeding; K64.8 Other hemorrhoids; K29.50 Unspecified chronic gastritis without bleeding; K63.5 Polyp of colon; R79.89 Other specified abnormal findings of blood chemistry; Z79.82 Long term (current) use of aspirin; Z86.73 Personal history of transient ischemic attack (TIA), and cerebral infarction without residual deficits; Z87.891 Personal history of nicotine dependence; Z82.3 Family history of stroke; N40.1 Benign prostatic hyperplasia with lower urinary tract symptoms; Z95.820 Peripheral vascular angioplasty status with implants and grafts; R45.1 Restlessness and agitation; Z95.1 Presence of aortocoronary bypass graft
CPT/HCPCS: 36415; 36600; 71045; 71250; 80048; 80053; 82274; 82803; 83605; 83735; 83880; 84100; 84443; 84484; 85025; 85379; 87631; 87641; 93005; 93308; 94660; 94762; 97116; 97150; 97162; 97166; 97530; 97535; 97802; 97803; 99284; P9047; A4216; G0239; J1940; J2405